=== PATIENT | female | born 1965 | race Caucasian/White ===

== ENCOUNTER 2020-11-23 23:58 | Emergency (ER) | payer MEDICARE, MEDICAID, SELFPAY ==
[2020-11-24 00:13] VITALS: BP 100/45; BP 110/70; PULSE 65; PULSE 70; RESP 15; TEMP 37; O2SAT 100; O2SAT 95; BMI 32.3
[2020-11-24 01:37] VITALS: BP 90/43; PULSE 60; RESP 16; O2SAT 100
--- NOTE | 2020-11-24 02:23 | PC.NURSE ---
POC 291 mg/dl. Pt snoring in bed, arousable to a sternal rub. VSS at this time, awaiting primary MD nova. Continue to monitor.
[2020-11-24 02:25] VITALS: BP 96/54; PULSE 61; RESP 12; O2SAT 99
[2020-11-24 02:29] LABS: Glucose, Whole Blood 291 mg/dL (60-115)
--- NOTE | 2020-11-24 03:12 | ED.OVERDOSE ---
HPI - Overdose General Chief Complaint: Overdose Stated Complaint: od Time Seen by Provider: 11/24/20 02:36 Source: patient Mode of arrival: EMS History of Present Illness HPI Narrative: This is a 55-year-old female who has a history of diabetes and is brought in by EMS after she was found ?sleeping? in a car with heroin on her lap. Patient endorses that she is an insulin-dependent diabetic and EMS notes that her point of care glucose was 463. On further questioning patient denies having taken anything. Otherwise, she denies fevers, chills, nausea, vomiting, diarrhea. Related Data Allergies Allergy/AdvReac Type Severity Reaction Status Date / Time Penicillins Allergy Mild HIVES Unverified 03/22/20 15:05 penicillin V Allergy Unknown Verified 03/09/19 00:00 Review of Systems Review of Systems: Pertinent positives and negatives as stated in the HPI and 10 point review of systems is otherwise negative. PMFSH Past Medical History Source: nursing notes reviewed Social History Social History Advance Directives: No Advance Directives Information Provided: No Patient : No Physical Exam Vital Signs: Vital Signs: Last Vital Signs Temp 98.6 F 11/24/20 00:13 Pulse 68 11/24/20 05:58 Resp 16 11/24/20 05:58 BP 156/73 H 11/24/20 05:58 Pulse Ox 96 11/24/20 05:58 Body Mass Index 32.3 VITAL SIGNS: Reviewed. GENERAL: Well developed, well nourished, in no acute distress. HEAD: Normocephalic/atraumatic EYES: PERRLA, EOMI NOSE: Nares patent bilateral OROPHARYNX: no oral lesions noted, posterior pharynx clear, dry mucosa NECK: Supple, no adenopathy LUNGS: Normal breath sounds. No adventitious sounds or accessory muscle use. SpO2<96> CARDIOVASCULAR: Regular rate and rhythm without noted murmurs ABDOMEN: Obese, Soft, non-tender, non-distended with bowel sounds. NEUROLOGIC: Drowsy and oriented x 3. Course Course Course Narrative: This is a 55-year-old female with history and clinical presentation most consistent with illicit drug use but is noted to have hyperglycemia without evidence of DKA or HHS. There is evidence of PAPO when compared to prior lab work from March of last year. Otherwise, on review of all investigations there is only significant findings of PAPO. Patient received 2 L of IV fluid resuscitation and will repeat BMP. Otherwise, patient may be discharged when more awake with a safe ride home. MDM - Overdose Lab Data Result diagrams: 11/24/20 03:59 11/24/20 03:59 Labs: Lab Results 11/24/20 11/24/20 11/24/20 Range/Units 02:21 03:59 03:59 WBC 9.0 (4.8-10.8) X10*3/uL RBC 3.80 L (4.20-5.50) X10*6/uL Hgb 11.3 L (12.0-16.0) g/dl Hct 36.0 L (37-47) % MCV 94.7 (80-98) fL MCH 29.7 (27.0-33.0) pg MCHC 31.4 (31.0-35.0) g/dl RDW 13.6 (11.0-16.0) % Plt Count 206 (160-400) X10*3/uL MPV 11.7 (9.4-12.3) fL Immature Gran % (Auto) 0.2 (0.0-0.4) % Neut % (Auto) 58.7 (45-73) % Lymph % (Auto) 33.3 (20-40) % [place] % (Auto) 6.6 (2-11) % Eos % (Auto) 0.9 (0-4) % Baso % (Auto) 0.3 (0-2) % Lymph # (Auto) 3.0 (1.2-4.9) X10*3/uL [place] # (Auto) 0.6 (0.1-1.2) X10*3/uL Eos # (Auto) 0.1 (0.0-0.4) X10*3/uL Baso # (Auto) 0.0 (0.0-0.2) X10*3/uL Abs Immat Gran (auto) 0.02 (0.00-0.03) X10*3/uL Absolute Neuts (auto) 5.3 (2.0-8.3) X10*3/uL Absolute Nucleated RBC 0.000 (0.0-0.012) X10*3/uL Nucleated RBC % (auto) 0.0 (0.0-0.2) /100WBC Smear Tech's Comments VERIFIED Sodium 137 (135-145) mmol/L Potassium 4.8 (3.3-5.1) mmol/L Chloride 103 (96-108) mmol/L Carbon Dioxide 23 (22-29) mmol/L Anion Gap 16 (12-20) BUN 46 H (9-16) mg/dL Creatinine 2.48 H (0.5-1.4) mg/dL Estim Creat Clear Calc 22.4 Estimated GFR 20 POC Glucose 291 H (60-115) mg/dL Random Glucose 280 H (60-115) mg/dL Calcium 9.1 (8.4-10.2) mg/dL Total Bilirubin 0.2 (0.0-1.0) mg/dL AST 8 (5-31) U/L ALT 7 (0-31) U/L Alkaline Phosphatase 153 H (39-117) U/L Total Protein 6.8 (6.5-8.0) g/dL Albumin 3.5 (3.5-5.0) g/dL Lipase 14 (8-78) U/L Urine Color Urine Appearance Urine pH (5.0-8.0) Ur Specific [place] (1.005-1.025) Urine Protein (NEG-TRACE) MG/DL Urine Glucose (UA) (NEG) MG/DL Urine Ketones (NEG) MG/DL Urine Blood (NEG) Urine Nitrite (NEG) Ur Leukocyte Esterase (NEG) Urine Opiates Screen (Not Detect) Ur Barbiturates Screen (Not Detect) Ur Phencyclidine Scrn (Not Detect) Ur Amphetamines Screen (Not Detect) U Benzodiazepines Scrn (Not Detect) Urine Cocaine Screen (Not Detect) U Marijuana (THC) Screen (Not Detect) Ethyl Alcohol mg/dL Acetone, Qual Negative (Negative) 11/24/20 11/24/20 11/24/20 Range/Units 03:59 04:10 04:10 WBC (4.8-10.8) X10*3/uL RBC (4.20-5.50) X10*6/uL Hgb (12.0-16.0) g/dl Hct (37-47) % MCV (80-98) fL MCH (27.0-33.0) pg MCHC (31.0-35.0) g/dl RDW (11.0-16.0) % Plt Count (160-400) X10*3/uL MPV (9.4-12.3) fL Immature Gran % (Auto) (0.0-0.4) % Neut % (Auto) (45-73) % Lymph % (Auto) (20-40) % [place] % (Auto) (2-11) % Eos % (Auto) (0-4) % Baso % (Auto) (0-2) % Lymph # (Auto) (1.2-4.9) X10*3/uL [place] # (Auto) (0.1-1.2) X10*3/uL Eos # (Auto) (0.0-0.4) X10*3/uL Baso # (Auto) (0.0-0.2) X10*3/uL Abs Immat Gran (auto) (0.00-0.03) X10*3/uL Absolute Neuts (auto) (2.0-8.3) X10*3/uL Absolute Nucleated RBC (0.0-0.012) X10*3/uL Nucleated RBC % (auto) (0.0-0.2) /100WBC Smear Tech's Comments Sodium (135-145) mmol/L Potassium (3.3-5.1) mmol/L Chloride (96-108) mmol/L Carbon Dioxide (22-29) mmol/L Anion Gap (12-20) BUN (9-16) mg/dL Creatinine (0.5-1.4) mg/dL Estim Creat Clear Calc Estimated GFR POC Glucose (60-115) mg/dL Random Glucose (60-115) mg/dL Calcium (8.4-10.2) mg/dL Total Bilirubin (0.0-1.0) mg/dL AST (5-31) U/L ALT (0-31) U/L Alkaline Phosphatase (39-117) U/L Total Protein (6.5-8.0) g/dL Albumin (3.5-5.0) g/dL Lipase (8-78) U/L Urine Color YELLOW Urine Appearance CLEAR Urine pH 6.0 (5.0-8.0) Ur Specific [place] >= 1.030 H (1.005-1.025) Urine Protein TRACE (NEG-TRACE) MG/DL Urine Glucose (UA) 100 H (NEG) MG/DL Urine Ketones NEG (NEG) MG/DL Urine Blood NEG (NEG) Urine Nitrite NEG (NEG) Ur Leukocyte Esterase NEG (NEG) Urine Opiates Screen POSITIVE H (Not Detect) Ur Barbiturates Screen Not Detected (Not Detect) Ur Phencyclidine Scrn Not Detected (Not Detect) Ur Amphetamines Screen Not Detected (Not Detect) U Benzodiazepines Scrn Not Detected (Not Detect) Urine Cocaine Screen POSITIVE H (Not Detect) U Marijuana (THC) Screen Not Detected (Not Detect) Ethyl Alcohol < 10 mg/dL Acetone, Qual (Negative) Discharge Plan Discharge Clinical Impression: Drug overdose Patient Disposition: Home, Self-Care Instructions: Adult Overdose (ED) Additional Instructions: Resume all home medications as prescribed. Follow-up with your primary care provider for re-evaluation in 2-3 days. Return to the emergency department for any acute worsening of symptoms. Referrals: Physician,Unknown [Primary Care Provider] - 2 days
[2020-11-24] MEDS: 0.9 % Sodium Chloride 2,000 ML 999 ML IV (04:08)
[2020-11-24 04:12] LABS: Basophils Percent Auto 0.3 % (0-2); Eosinophils Absolute Auto 0.1 X10*3/uL (0.0-0.4); Eosinophils Percent Auto 0.9 % (0-4); Hemoglobin 11.3 g/dl (12.0-16.0); Imm Gran Abs Auto 0.02 X10*3/uL (0.00-0.03); Imm Gran Pct Auto 0.2 % (0.0-0.4); Lymphocytes Percent Auto 33.3 % (20-40); MANUAL DIFF FLAG SCAN; Mean Corpuscular HGB Conc 31.4 g/dl (31.0-35.0); Mean Corpuscular Hemoglobin 29.7 pg (27.0-33.0); Mean Corpuscular Volume 94.7 fL (80-98); Mean Platelet Volume 11.7 fL (9.4-12.3); Monocytes Absolute Auto 0.6 X10*3/uL (0.1-1.2); Monocytes Percent Auto 6.6 % (2-11); Neutrophils Absolute Auto 5.3 X10*3/uL (2.0-8.3); Neutrophils Percent Auto 58.7 % (45-73); Platelet Count 206 X10*3/uL (160-400); Red Cell Distribution Width 13.6 % (11.0-16.0); SCAN SMEAR FLAG 1
[2020-11-24 04:25] VITALS: BP 114/57; PULSE 63; RESP 16; O2SAT 94
[2020-11-24 04:25] LABS: Acetone, serum QL Negative (Negative)
[2020-11-24 04:26] LABS: Glucose Urine UA 100 MG/DL (NEG); Leukocyte Esterase Urine NEG (NEG); Nitrite Urine NEG (NEG); Specific Gravity - Urine >= 1.030 (1.005-1.025); Urine Blood NEG (NEG); Urine Ketones NEG (NEG); Urine Protein TRACE MG/DL (NEG-TRACE)
[2020-11-24 04:31] LABS: Ethanol < 10 mg/dL
[2020-11-24 04:32] LABS: SLIDE REVIEW VERIFIED
[2020-11-24 04:34] LABS: Alanine Aminotransferase 7 U/L (0-31); Albumin Level 3.5 g/dL (3.5-5.0); Alkaline Phosphatase 153 U/L (39-117); Anion Gap 16 (12-20); Aspartate Amino Transferase 8 U/L (5-31); Bilirubin Total 0.2 mg/dL (0.0-1.0); Blood Urea Nitrogen 46 mg/dL (9-16); Calcium 9.1 mg/dL (8.4-10.2); Carbon Dioxide 23 mmol/L (22-29); Chloride 103 mmol/L (96-108); Creatinine Clr Calc Pharmacy 22.4; Estimated Glomerular Filt Rate 20; Glucose Random 280 mg/dL (60-115); Lipase 14 U/L (8-78); Potassium 4.8 mmol/L (3.3-5.1); Sodium 137 mmol/L (135-145); Total Protein 6.8 g/dL (6.5-8.0)
[2020-11-24 04:38] LABS: Appearance Urine CLEAR; Color Urine YELLOW
[2020-11-24 05:06] LABS: Amphetamine Screen Urine Not Detected (Not Detect); Barbiturates, Urine Not Detected (Not Detect); Benzodiazepines Screen Urine Not Detected (Not Detect); Cannabinoid Screen Urine Not Detected (Not Detect); Cocaine Screen Urine POSITIVE (Not Detect); Opiate Screen Urine POSITIVE (Not Detect); Phencyclidine Screen Urine Not Detected (Not Detect)
--- NOTE | 2020-11-24 05:53 | PC.NURSE ---
Daughter updated on pt condition. Daughter to be called for transport home.
[2020-11-24 05:58] VITALS: BP 156/73; PULSE 68; RESP 16; O2SAT 96
[2020-11-24] MEDS: 0.9 % Sodium Chloride 1,000 ML 999 ML IV (06:42)
[2020-11-24 08:19] LABS: Anion Gap 14 (12-20); Blood Urea Nitrogen 39 mg/dL (9-16); Calcium 8.6 mg/dL (8.4-10.2); Carbon Dioxide 23 mmol/L (22-29); Chloride 108 mmol/L (96-108); Creatinine Clr Calc Pharmacy 31.6; Estimated Glomerular Filt Rate 30; Glucose Random 187 mg/dL (60-115); Potassium 4.6 mmol/L (3.3-5.1); Sodium 140 mmol/L (135-145)
== END 2020-11-24 11:30 | disposition home or self-care (01) ==
PROVIDERS: Student in an Organized Health Care Education/Training Program; Emergency Provider Emergency Medicine
DX: T40.1X1A Poisoning by heroin, accidental (unintentional), initial encounter (principal); Y92.810 Car as the place of occurrence of the external cause; E11.65 Type 2 diabetes mellitus with hyperglycemia; I10 Essential (primary) hypertension; F11.90 Opioid use, unspecified, uncomplicated
CPT/HCPCS: 36415; 80048; 80053; 80307; 80320; 81003; 82009; 82947; 83690; 85025; 96360; 96361; 99284

== ENCOUNTER 2020-12-03 10:47 | Emergency (ER) | payer MEDICARE, MEDICAID, SELFPAY ==
[2020-12-03] VITALS (8 sets, daily range): BP systolic 94–119; BP diastolic 49–84; PULSE 73–133; RESP 13–30; TEMP 36.1–36.7; O2SAT 87–100; BMI 33.6
--- NOTE | ~2020-12-03 | CT_ITS ---
EXAMINATION: CT HEAD WITHOUT CONTRAST CLINICAL INFORMATION: Altered mental status COMPARISON: 07/24/2017 TECHNIQUE: Contiguous axial imaging was performed from the skull base to vertex without intravenous administration of contrast. This CT examination was performed using dose optimization techniques as appropriate, variously including the following: *Automated exposure control *Adjustment of mA and/or kV according to patient size (this includes techniques or standardized protocols for targeted exams where dose is matched to indication/reason for exam; i.e. extremities or head) *Use of iterative reconstruction technique DLP: 684 mGy-cm FINDINGS: There is no evidence of acute intracranial hemorrhage or territorial infarction. No abnormal mass effect or midline shift is seen. [place] to white matter differentiation is well preserved. No extra-axial fluid collections are identified. The ventricles are normal in size. No areas of abnormal brain parenchymal attenuation. The osseous structures and soft tissues are normal. The mastoid air cells and visualized portions of the paranasal sinuses are well aerated. CT/CT head/brain wo con IMPRESSION: No acute intracranial pathology.
--- NOTE | ~2020-12-03 | XR_ITS ---
EXAMINATION: XR CHEST CLINICAL INFORMATION: Hypoxia COMPARISON: Chest x-ray the 2019 TECHNIQUE: Frontal portable view of the chest was obtained. 4:38 PM FINDINGS: Lung volume low. This accentuates the bronchovascular markings. There is no acute change allowing for low inspiratory effort. There is no significant pulmonary vascular congestion. There is no focal consolidation, no pleural effusion or pneumothorax. The cardiac and mediastinal contours are normal. XR/XR chest 1V IMPRESSION: No acute abnormality of chest.
--- NOTE | 2020-12-03 11:44 | ED_ITS ---
HPI - Overdose General Chief Complaint: Overdose Stated Complaint: overdose Time Seen by Provider: 12/03/20 11:44 History of Present Illness HPI Narrative: 55-year-old female with history of hypertension, diabetes, opiate abuse who presents to the ED after an overdose. Patient is a limited historian given clinical condition however reports from EMS states the patient has at home health provider came to the home and found patient unresponsive and not breathing she administered 2 doses of nasal Narcan and called EMS. On arrival patient was fidgety uncooperative. EMS did not need to give any additional Narcan. Patient at this time denies physical complaints states she is here for an overdose but denies any drug abuse is redirectable but still fairly uncooperative. Related Data Previous Rx's Medication Instructions Recorded naloxone [Narcan] 4 mg INTRANASAL Q2M PRN #2 ea 11/24/20 Allergies Allergy/AdvReac Type Severity Reaction Status Date / Time Penicillins Allergy Mild HIVES Verified 12/03/20 11:11 Review of Systems Review of Systems: Yes Unobtainable due to mental status PMFSH Past Medical History Attestation statement: The following information was validated with the patient. Source: old records reviewed and nursing notes reviewed Medical History (Updated 12/03/20 @ 17:38 by TAINA Zamudio) Diabetes HTN (hypertension) Opiate use Social History Social History Alcohol intake: unknown Patient Tobacco Use Status: Refuse Tobacco use screen Use of substances other than those prescribed or required for medical reasons: Yes Substance Use Type: Crack/Cocaine and Opiates Physical Exam Vital Signs: Vital Signs: Last Vital Signs Temp 98.1 F 12/03/20 16:59 Pulse 88 12/03/20 16:59 Resp 17 12/03/20 16:59 BP 111/72 12/03/20 16:59 Pulse Ox 94 12/03/20 16:59 Body Mass Index 33.6 vital signs have been reviewed as normal and appeared to be correct. Blood pressure normal. Heart rate normal. Respiration rate normal. Temperature normal. Oxygen saturation normal. Appearance: Alert. Oriented to person and place. tossing and turning in bed. Head: Normal external exam. Normocephalic. Atraumatic. No Can signs noted. No raccoon eyes noted Eyes: Conjunctiva and sclera normal. ENT: EAC normal. Moist mucous membranes. No drooling noted. No muffled voice noted. Neck: Normal inspection. Neck supple. FROM. No meningeal signs. CVS: Pulses normal throughout. Regular rate and rhythm Respiratory: Lung sounds are clear No respiratory distress. Painless inspiration. No accessory muscle usage noted Abdomen: No visible injury noted. Abdomen soft nondistended nontender Back: Full range of motion noted. Skin: Skin warm and dry. Normal skin color. Normal skin turgor. Extremities: No lower extremity edema. Extremities exhibit normal range of motion. Neuro: Oriented to person and place. No motor deficit. No sensory deficit. Patient clinically and under the influence/altered Course Reevaluation(s) Reevaluation #1: Patient continues to be intermittently restless has not returned to baseline. Was called over by nursing staff due to patient's decreased responsiveness patient with slightly smaller pupil was then on arrival responsive to painful stimuli and appropriately arouses. Oxygen saturation with desat to high 80s on room air placed on 2 L with improvement. At this time given prolonged altered mental status will obtain head CT to ensure the absence of abnormal findings. Spoke in length with Dr. Liu who agrees with this plan. Will hold off on additional Narcan at this time but monitor mental status closely. Reevaluation #2: Patient continues to rest comfortably a arousable to any physical stimuli. 94% on 2 L of nasal cannula chest x-ray and CT scan which were added without acute findings. Patient does require continued observation will continue to hold off on Narcan. We will sign out at change of shift pending continued observation and ultimate disposition. MDM - Overdose MDM Narrative Medical decision making narrative: Patient's vital signs are stable and she is afebrile patient presenting to the ED after an overdose at home found by at home health caregiver. Received 2 in transit doses of Narcan with good response at this time patient is a very limited historian due to continued acute intoxication/ulceration however able to tell me she has no physical complaints. No signs of injury or trauma on bedside exam. Patient testing and turning in bed attempting to get up it is fidgety. Will continue to monitor closely for improvement of exam will check basic blood work and EKG. Will need to further observe and reassess pending sobriety patient hemodynamically stable at this time. Lab Data Result diagrams: 12/03/20 12:20 12/03/20 12:59 Labs: Lab Results 12/03/20 12/03/20 12/03/20 Range/Units 12:20 12:20 12:59 WBC 15.5 H (4.8-10.8) X10*3/uL RBC 5.02 D (4.20-5.50) X10*6/uL Hgb 14.9 D (12.0-16.0) g/dl Hct 45.4 D (37-47) % MCV 90.4 (80-98) fL MCH 29.7 (27.0-33.0) pg MCHC 32.8 (31.0-35.0) g/dl RDW 13.3 (11.0-16.0) % Plt Count 331 D (160-400) X10*3/uL MPV 11.5 (9.4-12.3) fL Immature Gran % (Auto) 0.5 H (0.0-0.4) % Neut % (Auto) 79.1 H (45-73) % Lymph % (Auto) 13.8 L (20-40) % [place] % (Auto) 5.8 (2-11) % Eos % (Auto) 0.3 (0-4) % Baso % (Auto) 0.5 (0-2) % Lymph # (Auto) 2.1 (1.2-4.9) X10*3/uL [place] # (Auto) 0.9 (0.1-1.2) X10*3/uL Eos # (Auto) 0.1 (0.0-0.4) X10*3/uL Baso # (Auto) 0.1 (0.0-0.2) X10*3/uL Abs Immat Gran (auto) 0.07 H (0.00-0.03) X10*3/uL Absolute Neuts (auto) 12.2 H (2.0-8.3) X10*3/uL Absolute Nucleated RBC 0.000 (0.0-0.012) X10*3/uL Nucleated RBC % (auto) 0.0 (0.0-0.2) /100WBC Sodium 138 (135-145) mmol/L Potassium 4.5 (3.3-5.1) mmol/L Chloride 100 (96-108) mmol/L Carbon Dioxide 18 L (22-29) mmol/L Anion Gap 25 H (12-20) BUN 43 H (9-16) mg/dL Creatinine 1.89 H (0.5-1.4) mg/dL Estim Creat Clear Calc 35.4 Estimated GFR 28 POC Glucose (60-115) mg/dL Random Glucose 266 H D (60-115) mg/dL Calcium 11.0 H D (8.4-10.2) mg/dL Total Bilirubin 0.4 (0.0-1.0) mg/dL AST 22 D (5-31) U/L ALT 14 (0-31) U/L Alkaline Phosphatase 153 H (39-117) U/L Total Protein 8.7 H D (6.5-8.0) g/dL Albumin 4.5 D (3.5-5.0) g/dL Urine Opiates Screen (Not Detect) Ur Barbiturates Screen (Not Detect) Ur Phencyclidine Scrn (Not Detect) Ur Amphetamines Screen (Not Detect) U Benzodiazepines Scrn (Not Detect) Urine Cocaine Screen (Not Detect) U Marijuana (THC) Screen (Not Detect) Ethyl Alcohol mg/dL COVID-19 ([facility]) Negative (Negative) COVID-19 Clin Com See Note 12/03/20 12/03/20 12/03/20 Range/Units 12:59 14:42 16:10 WBC (4.8-10.8) X10*3/uL RBC (4.20-5.50) X10*6/uL Hgb (12.0-16.0) g/dl Hct (37-47) % MCV (80-98) fL MCH (27.0-33.0) pg MCHC (31.0-35.0) g/dl RDW (11.0-16.0) % Plt Count (160-400) X10*3/uL MPV (9.4-12.3) fL Immature Gran % (Auto) (0.0-0.4) % Neut % (Auto) (45-73) % Lymph % (Auto) (20-40) % [place] % (Auto) (2-11) % Eos % (Auto) (0-4) % Baso % (Auto) (0-2) % Lymph # (Auto) (1.2-4.9) X10*3/uL [place] # (Auto) (0.1-1.2) X10*3/uL Eos # (Auto) (0.0-0.4) X10*3/uL Baso # (Auto) (0.0-0.2) X10*3/uL Abs Immat Gran (auto) (0.00-0.03) X10*3/uL Absolute Neuts (auto) (2.0-8.3) X10*3/uL Absolute Nucleated RBC (0.0-0.012) X10*3/uL Nucleated RBC % (auto) (0.0-0.2) /100WBC Sodium (135-145) mmol/L Potassium (3.3-5.1) mmol/L Chloride (96-108) mmol/L Carbon Dioxide (22-29) mmol/L Anion Gap (12-20) BUN (9-16) mg/dL Creatinine (0.5-1.4) mg/dL Estim Creat Clear Calc Estimated GFR POC Glucose 205 H (60-115) mg/dL Random Glucose (60-115) mg/dL Calcium (8.4-10.2) mg/dL Total Bilirubin (0.0-1.0) mg/dL AST (5-31) U/L ALT (0-31) U/L Alkaline Phosphatase (39-117) U/L Total Protein (6.5-8.0) g/dL Albumin (3.5-5.0) g/dL Urine Opiates Screen POSITIVE H (Not Detect) Ur Barbiturates Screen Not Detected (Not Detect) Ur Phencyclidine Scrn Not Detected (Not Detect) Ur Amphetamines Screen Not Detected (Not Detect) U Benzodiazepines Scrn Not Detected (Not Detect) Urine Cocaine Screen POSITIVE H (Not Detect) U Marijuana (THC) Screen Not Detected (Not Detect) Ethyl Alcohol < 10 mg/dL COVID-19 ([facility]) (Negative) COVID-19 Clin Com Discharge Plan Discharge Clinical Impression: Drug overdose Qualifiers: Encounter type: initial encounter Prescriptions: No Action Narcan 4 mg/actuation spray,non-aerosol 4 mg intranasal Q2M PRN (Reason: opioid overdose) Qty: 2 RF: 0
--- NOTE | 2020-12-03 11:47 | ECG_ITS ---
Test Reason : AMS Blood Pressure : / mmHG Vent. Rate : 091 BPM Atrial Rate : 091 BPM P-R Int : 126 ms QRS Dur : 070 ms QT Int : 370 ms P-R-T Axes : 042 049 039 degrees QTc Int : 455 ms Normal sinus rhythm Normal ECG When compared with ECG of 11-DEC-2019 19:24, No significant change was found Referred By: Galina Bajwa Electronically Signed By:YAMILETH SCHMITT
[2020-12-03 12:26] LABS: MANUAL DIFF FLAG NO
[2020-12-03 12:27] LABS: Basophils Absolute Auto 0.1 X10*3/uL (0.0-0.2); Basophils Percent Auto 0.5 % (0-2); Eosinophils Absolute Auto 0.1 X10*3/uL (0.0-0.4); Eosinophils Percent Auto 0.3 % (0-4); Hematocrit 45.4 % (37-47); Hemoglobin 14.9 g/dl (12.0-16.0); Imm Gran Abs Auto 0.07 X10*3/uL (0.00-0.03); Imm Gran Pct Auto 0.5 % (0.0-0.4); Lymphocytes Absolute Auto 2.1 X10*3/uL (1.2-4.9); Lymphocytes Percent Auto 13.8 % (20-40); Mean Corpuscular HGB Conc 32.8 g/dl (31.0-35.0); Mean Corpuscular Hemoglobin 29.7 pg (27.0-33.0); Mean Corpuscular Volume 90.4 fL (80-98); Mean Platelet Volume 11.5 fL (9.4-12.3); Monocytes Absolute Auto 0.9 X10*3/uL (0.1-1.2); Monocytes Percent Auto 5.8 % (2-11); Neutrophils Absolute Auto 12.2 X10*3/uL (2.0-8.3); Neutrophils Percent Auto 79.1 % (45-73); Platelet Count 331 X10*3/uL (160-400); Red Blood Count 5.02 X10*6/uL (4.20-5.50); Red Cell Distribution Width 13.3 % (11.0-16.0); White Blood Count 15.5 X10*3/uL (4.8-10.8)
[2020-12-03 12:41] LABS: COVID-19 Test Negative (Negative)
--- NOTE | 2020-12-03 12:57 | PC.NURSE ---
late entry. aprox 1230 pt sat up and vomited large amount of billious emisis. iv was placed and provider aware. pt continues to wiggle and ekg held ST on monitor.
[2020-12-03] MEDS: ondansetron HCL 4 MG/2 ML VIAL IVPUSH (13:00)
[2020-12-03 13:32] LABS: Ethanol < 10 mg/dL
[2020-12-03 13:49] LABS: Alanine Aminotransferase 14 U/L (0-31); Albumin Level 4.5 g/dL (3.5-5.0); Alkaline Phosphatase 153 U/L (39-117); Anion Gap 25 (12-20); Aspartate Amino Transferase 22 U/L (5-31); Bilirubin Total 0.4 mg/dL (0.0-1.0); Blood Urea Nitrogen 43 mg/dL (9-16); Carbon Dioxide 18 mmol/L (22-29); Chloride 100 mmol/L (96-108); Creatinine Clr Calc Pharmacy 35.4; Estimated Glomerular Filt Rate 28; Glucose Random 266 mg/dL (60-115); Potassium 4.5 mmol/L (3.3-5.1); Sodium 138 mmol/L (135-145); Total Protein 8.7 g/dL (6.5-8.0)
[2020-12-03] MEDS: 0.9 % Sodium Chloride 1,000 ML 999 ML IV ×2 (14:40→15:52)
--- NOTE | 2020-12-03 14:45 | PC.NURSE ---
speaking with daughter on phone. pt lives alone. daughter states she can't come home untill she's alert. pt does have [facility]NA services. [facility] helps her remember to take pills. and check POC.
[2020-12-03 15:10] LABS: Amphetamine Screen Urine Not Detected (Not Detect); Barbiturates, Urine Not Detected (Not Detect); Benzodiazepines Screen Urine Not Detected (Not Detect); Cannabinoid Screen Urine Not Detected (Not Detect); Cocaine Screen Urine POSITIVE (Not Detect); Opiate Screen Urine POSITIVE (Not Detect); Phencyclidine Screen Urine Not Detected (Not Detect)
--- NOTE | 2020-12-03 16:09 | PC.NURSE ---
after hours of nonstop movemt pt is still, arousable to light touch and far less active. skin pwd. st on monitor is dropped by about 20 since last check. fluids are running.
[2020-12-03 16:14] LABS: Glucose, Whole Blood 205 mg/dL (60-115)
--- NOTE | 2020-12-03 16:21 | PC.NURSE ---
pupils 3mm, non reactive. resp rate is 16-18. co2 applied
--- NOTE | 2020-12-03 17:00 | PC.NURSE ---
While this RN in triage she could hear some discussion at registration between staff and a visitor. This RN found a gentleman by the name of Shaggy who reports he is currently renting a room from the pt and was looking to get some additional information and let her know that he has her house and car keys as well as her cell phone. Visitor could not provide the RN with the pt's last name initially and had to go out to the car to retrieve this information off the member's car title. Shaggy came back into the ED and provided this RN with patient's full name. Per Shaggy, pt was seen hanging curtains when he came home and then he proceeded to go downstairs to his room. He states he went to answer the door as the pt did not answer it herself; pt was found resting in her recliner as Shaggy reports he thought she was asleep. VNA nurse let into the home and pt found to be unresponsive to verbal stimuli with pulse and respirations present. Shaggy states that the [facility]NA nurse gave narcan x2 without improvement; denies any known ETOH/Drug use. Shaggy did admit that the patient has been falling more as he adds the pt reported falling a bunch of times yesterday. Shaggy is willing to provide the patient with a necessary ride when needed as he is currently has the pt's car. Shaggy kept the pt's house keys, car keys and cell phone. Pt's RN made aware
--- NOTE | 2020-12-03 23:38 | PC.NURSE ---
increasingly alert. up to commode with increased coordination but still requires assistance. when back in bed sao2 remains low. see vs. provider aware. 2l NC reapplied
[2020-12-04] VITALS: RESP 16
--- NOTE | 2020-12-04 00:07 | PC.NURSE ---
pt difficult to arouse. pt unable to participate in ambulation trial due to sleepiness.
--- NOTE | 2020-12-04 01:05 | PC.NURSE ---
attempted ambulation trial. patient is now a and o x 3. pt denies si/hi/ah/vh. pt maintained o2 stat while standing. she is 1 assist.
--- NOTE | 2020-12-04 01:45 | PC.NURSE ---
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
[2020-12-04] MEDS: Naloxone HCl Nasal TAKE HOME 4 MG SPRAY NOSTRILALT (03:10)
--- NOTE | 2020-12-04 03:10 | PC.NURSE ---
Report taken from Kim, this RN resuming care. Per Kim, plan for pt to be picked up @ 0845 by family. Pt sleeping at this time in NAD. Continue to monitor.
[2020-12-04 04:34] VITALS: BP 161/73; PULSE 74; RESP 16; O2SAT 92
--- NOTE | 2020-12-04 06:18 | PC.NURSE ---
This RN UTO pt a ride home. Per family, they can't come pick her up. Per pt, she cannot pay for a cab. Pt ambulating within the halls with a steady gait, requiring minimal assist. 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
== END 2020-12-04 07:44 | disposition home or self-care (01) ==
PROVIDERS: Physician Assistant; Emergency Provider Emergency Medicine Emergency Medical Services
DX: T40.1X1A Poisoning by heroin, accidental (unintentional), initial encounter (principal); R40.4 Transient alteration of awareness; Y92.019 Unspecified place in single-family (private) house as the place of occurrence of the external cause; R45.1 Restlessness and agitation; R11.10 Vomiting, unspecified; F11.10 Opioid abuse, uncomplicated; Z20.822 Contact with and (suspected) exposure to COVID-19; E11.9 Type 2 diabetes mellitus without complications; I10 Essential (primary) hypertension
CPT/HCPCS: 36415; 70450; 71045; 80053; 80307; 82077; 82947; 85025; 87635; 93005; 96361; 96374; 99285; J2405

== ENCOUNTER 2022-01-03 14:35 | Outpatient (REF) | payer MEDICARE, MEDICAID, SELFPAY ==
--- NOTE | ~2022-01-03 | XR_ITS ---
EXAMINATION: XR RIBS, LEFT CLINICAL INFORMATION: Pain COMPARISON: Previous chest x-ray November 2020 TECHNIQUE: 3 views of the left ribs were obtained. FINDINGS: The cardiac and mediastinal contours are stable. The lungs are clear. There is no pleural effusion or pneumothorax. Left posterior fifth, sixth and eighth recent appearing rib fractures. Left anterior 11th fracture that does not appear recent. There are degenerative changes of the spine.. XR/XR ribs LT min 3V w CXR1V IMPRESSION: Multiple recent appearing left posterior rib fractures. No evidence for acute disease in the chest.
--- NOTE | ~2022-01-03 | XR_ITS ---
EXAMINATION: XR ABDOMEN KUB CLINICAL INDICATION: Abdominal pain, distention. COMPARISON: Chest radiograph 12/03/2020, CT abdomen and pelvis 04/02/2020. TECHNIQUE: AP x2 views of the abdomen. FINDINGS: There is moderate stool throughout the colon with lesser stool in the sigmoid. No rectal fecal impaction. No gaseous dilatation of bowel or abnormal collections of gas. Surgical clips right upper quadrant from prior cholecystectomy. No visible urinary tract calculi. No acute bony abnormality. XR/XR KUB IMPRESSION: -Moderate stool in colon. No rectal fecal impaction. -No gaseous dilatation of bowel. -No visible urinary tract calculi.
== END 2022-01-03 14:36 | disposition home or self-care (01) ==
LOC: HO.XRAY 14:35
PROVIDERS: PCP Internal Medicine; Visit Provider Internal Medicine
DX: R07.81 Pleurodynia (principal); R10.9 Unspecified abdominal pain; R14.0 Abdominal distension (gaseous)
CPT/HCPCS: 71101; 74018

== ENCOUNTER 2022-03-07 19:53 | Emergency (ER) | payer MEDICARE, MEDICAID, SELFPAY ==
--- NOTE | ~2022-03-07 | CT_ITS ---
EXAMINATION: CT HEAD WITHOUT CONTRAST CLINICAL INFORMATION: Fall one week ago COMPARISON: 12/03/2020 TECHNIQUE: Contiguous axial imaging was performed from the skull base to vertex without intravenous administration of contrast. This CT examination was performed using dose optimization techniques as appropriate, variously including the following: *Automated exposure control *Adjustment of mA and/or kV according to patient size (this includes techniques or standardized protocols for targeted exams where dose is matched to indication/reason for exam; i.e. extremities or head) *Use of iterative reconstruction technique DLP: 711 mGy-cm FINDINGS: There is no evidence of acute intracranial hemorrhage or territorial infarction. No abnormal mass effect or midline shift is seen. [place] to white matter differentiation is well preserved. No extra-axial fluid collections are identified. No hydrocephalus. No significant volume loss. There is no abnormal attenuation within the brain parenchyma. No acute osseous or soft tissue abnormality. The mastoid air cells and visualized portions of the paranasal sinuses are well aerated. CT/CT head/brain wo IV con IMPRESSION: No acute intracranial pathology.
[2022-03-07 19:59] VITALS: BP 138/78; PULSE 78; PULSE 97; RESP 18; O2SAT 100; O2SAT 99; BMI 20.2
[2022-03-07 20:15] VITALS: BP 136/80; PULSE 97; RESP 18; O2SAT 99
--- NOTE | 2022-03-07 20:21 | PC.NURSE ---
Pt comes in with EMS after falling at home. Pt has a laceration on the top of the right side of her head. Pt states the wound is approximately a week old. Pt initially denied any drug use but did eventually admit to heroin use vtoday, 2 bags. Pt is A&O but very sleepy and has to be asked questions multiple times before answering.
[2022-03-07 20:37] LABS: Basophils Percent Auto 0.4 % (0-2); Eosinophils Absolute Auto 0.2 X10*3/uL (0.0-0.4); Eosinophils Percent Auto 2.8 % (0-4); Hemoglobin 12.3 g/dl (12.0-16.0); Imm Gran Abs Auto 0.03 X10*3/uL (0.00-0.03); Imm Gran Pct Auto 0.4 % (0.0-0.4); Lymphocytes Absolute Auto 1.4 X10*3/uL (1.2-4.9); Lymphocytes Percent Auto 17.7 % (20-40); MANUAL DIFF FLAG SCAN; Mean Corpuscular HGB Conc 32.4 g/dl (31.0-35.0); Mean Corpuscular Hemoglobin 29.4 pg (27.0-33.0); Mean Corpuscular Volume 90.7 fL (80.0-98.0); Mean Platelet Volume 10.7 fL (9.4-12.3); Monocytes Absolute Auto 0.7 X10*3/uL (0.1-1.2); Monocytes Percent Auto 8.5 % (2-11); Neutrophils Absolute Auto 5.5 x10*3/uL (2.0-8.3); Neutrophils Percent Auto 70.2 % (45-73); Platelet Count 268 X10*3/uL (160-400); Red Blood Count 4.19 X10*6/uL (4.20-5.50); Red Cell Distribution Width 13.6 % (11.0-16.0); SCAN SMEAR FLAG 1; White Blood Count 7.8 X10*3/uL (4.8-10.8)
[2022-03-07 20:38] LABS: Appearance Urine Clear; Color Urine Yellow; Glucose Urine UA Negative (Negative); Leukocyte Esterase Urine Negative (Negative); Nitrite Urine Negative (Negative); PH 5.5 (5.0-9.0); Specific Gravity - Urine 1.015 (1.005-1.025); Urine Blood Trace (Negative); Urine Ketones Trace mg/dL (Negative); Urine Protein 100 (2+) mg/dL (Neg-Trace)
[2022-03-07 20:40] LABS: UPreg QC Valid YES; Urine Pregnancy NEGATIVE (NEGATIVE)
[2022-03-07 20:43] LABS: Bacteria Urine None Seen (None Seen); RBC Urine 0-2 /HPF (0-2); WBC Urine 0-5 /HPF (0-5)
[2022-03-07 20:57] LABS: Anion Gap 21 (12-20); Blood Urea Nitrogen 51 mg/dL (9-16); Calcium 8.6 mg/dL (8.4-10.2); Carbon Dioxide 23 mmol/L (22-29); Chloride 96 mmol/L (96-108); Creatinine Clr Calc Pharmacy 15.2; Estimated Glomerular Filt Rate 17; Glucose Random 153 mg/dL (60-115); Potassium 3.8 mmol/L (3.3-5.1); SLIDE REVIEW VERIFIED; Sodium 136 mmol/L (135-145)
[2022-03-07 20:57] LABS: Amphetamine Screen Urine Not Detected (Not Detect); Barbiturates, Urine Not Detected (Not Detect); Benzodiazepines Screen Urine POSITIVE (Not Detect); Cannabinoid Screen Urine Not Detected (Not Detect); Cocaine Screen Urine POSITIVE (Not Detect); Fentanyl, urine POSITIVE (Not Detect); Opiate Screen Urine POSITIVE (Not Detect); Phencyclidine Screen Urine Not Detected (Not Detect)
[2022-03-07] MEDS: Ondansetron ODT 4 MG TAB.RAPDIS TRANSLINGU (21:16)
[2022-03-07] MEDS: Naloxone HCl Nasal 4 MG SPRAY NOSTRILALT (21:16)
[2022-03-07 21:44] LABS: Ethanol < 10 mg/dL
[2022-03-07] MEDS: diphenhydrAMINE HCL 50 MG/ML VIAL IM (22:25)
--- NOTE | 2022-03-07 22:27 | ED_ITS ---
HPI - Fall General Chief Complaint: Fall Stated Complaint: fall/lac for a week Time Seen by Provider: 03/07/22 20:59 Source: EMS Mode of arrival: EMS History of Present Illness HPI Narrative: 56-year-old female brought in by EMS and is a poor historian, majority of this history is obtained from EMS. Patient is noted to be falling at home over the past week patient is been shaky and unable to sit still. Patient has a wound on the right side of her head from a fall a week ago that has scabbed over and is oozing. Patient is on methadone, but reports that she did use heroin, 2 bags today. Patient appears agitated and and initially was yelling ?no Narcan, do not give me Narcan?. Related Data Previous Rx's Medication Instructions Recorded naloxone 4 mg/actuation nasal 4 mg intranasal Q2M PRN opioid 11/24/20 spray (Narcan) overdose #2 ea Allergies Allergy/AdvReac Type Severity Reaction Status Date / Time Penicillins Allergy Mild HIVES Verified 12/03/20 11:11 Review of Systems Review of Systems: Pertinent positives and negatives as stated in HPI 10 point review of systems is otherwise negative PMFSH Past Medical History Source: nursing notes reviewed Medical History Diabetes HTN (hypertension) Opiate use Social History Social History Alcohol intake: never Patient Tobacco Use Status: Current everyday Tobacco user Use of substances other than those prescribed or required for medical reasons: Yes Substance Use Type: Heroin Substance Use Frequency: Occasionally Advance Directives: No Advance Directives Information Provided: No Patient : No Physical Exam Vital Signs: Vital Signs: Last Vital Signs Temp 98.4 F 03/08/22 01:55 Pulse 72 03/08/22 01:55 Resp 16 03/08/22 01:55 BP 90/53 L 03/08/22 01:55 Pulse Ox 94 03/08/22 01:55 O2 Del Method 03/08/22 01:55 BMI result Body Mass Index 20.2 VITAL SIGNS: Reviewed. GENERAL: Well developed, well nourished, in no acute distress. HEAD: Normocephalic/atraumatic EYES: PERRLA, EOMI EARS: Ext canals without abnormality OROPHARYNX: no oral lesions noted, posterior pharynx clear LUNGS: Normal breath sounds. No adventitious sounds or accessory muscle use. SpO2<99> CARDIOVASCULAR: Regular rate and rhythm without noted murmurs ABDOMEN: Soft, non-tender, non-distended with bowel sounds. MUSCULOSKELETAL: No tenderness, deformities, or effusions noted on gross inspection. EXTREMITIES: No cyanosis, clubbing or edema. SKIN: Inspection of the skin reveals no rashes NEUROLOGIC: Alert and oriented x 3. Strength and sensation to light touch were grossly intact x 4. Course Course Course Narrative: 56-year-old female who is brought in from home by EMS, is a poor historian but appears to be polysubstance use dependence and although initially she was yelling that she did not want Narcan she then became very somnolent and drowsy and the decision was made to give her 4 mg of Narcan intranasally as well as a sublingual Zofran. Patient woke up and began pacing room. Patient was provided with both Benadryl as well as Ativan for the level of agitation that she was experiencing. Review all investigations was otherwise negative for acute findings to include the CT scan. Patient is resting comfortably and will be ready for discharge in the morning. Reevaluation(s) Reevaluation #1: Patient placed in physician observation because the patient needed more time for recover from medications. At the time observation was started the patient's vital signs were stable, patient is alert, neuro: Nonfocal, CV RRR, lungs clear Time: 02:43 - Fall Lab Data Result diagrams: 03/07/22 20:28 03/07/22 20:28 Labs: Lab Results 03/07/22 03/07/22 03/07/22 Range/Units 20:28 20:28 20:29 WBC 7.8 (4.8-10.8) X10*3/uL RBC 4.19 L (4.20-5.50) X10*6/uL Hgb 12.3 (12.0-16.0) g/dl Hct 38.0 (37.0-47.0) % MCV 90.7 (80.0-98.0) fL MCH 29.4 (27.0-33.0) pg MCHC 32.4 (31.0-35.0) g/dl RDW 13.6 (11.0-16.0) % Plt Count 268 (160-400) X10*3/uL MPV 10.7 (9.4-12.3) fL Immature Gran % (Auto) 0.4 (0.0-0.4) % Neut % (Auto) 70.2 (45-73) % Lymph % (Auto) 17.7 L (20-40) % [place] % (Auto) 8.5 (2-11) % Eos % (Auto) 2.8 (0-4) % Baso % (Auto) 0.4 (0-2) % Lymph # (Auto) 1.4 (1.2-4.9) X10*3/uL [place] # (Auto) 0.7 (0.1-1.2) X10*3/uL Eos # (Auto) 0.2 (0.0-0.4) X10*3/uL Baso # (Auto) 0.0 (0.0-0.2) X10*3/uL Abs Immat Gran (auto) 0.03 (0.00-0.03) X10*3/uL Absolute Neuts (auto) 5.5 (2.0-8.3) x10*3/uL Absolute Nucleated RBC 0.000 (0.0-0.012) X10*3/uL Nucleated RBC % (auto) 0.0 (0.0-0.2) /100WBC Smear Tech's Comments VERIFIED Sodium 136 (135-145) mmol/L Potassium 3.8 (3.3-5.1) mmol/L Chloride 96 (96-108) mmol/L Carbon Dioxide 23 (22-29) mmol/L Anion Gap 21 H (12-20) BUN 51 H (9-16) mg/dL Creatinine 2.84 H (0.5-1.4) mg/dL Estim Creat Clear Calc 15.2 Estimated GFR 17 Random Glucose 153 H (60-115) mg/dL Calcium 8.6 D (8.4-10.2) mg/dL Total Creatine Kinase 711 H (26-140) U/L Urine Color Yellow Urine Appearance Clear Urine pH 5.5 (5.0-9.0) Ur Specific [place] 1.015 (1.005-1.025) Urine Protein 100 (2+) H (Neg-Trace) mg/dL Urine Glucose (UA) Negative (Negative) mg/dL Urine Ketones Trace (Negative) mg/dL Urine Blood Trace H (Negative) Urine Nitrite Negative (Negative) Ur Leukocyte Esterase Negative (Negative) Urine RBC 0-2 (0-2) /HPF Urine WBC 0-5 (0-5) /HPF Ur Squamous Epith Cells 3-5 (0-2) /HPF Urine Bacteria None Seen (None Seen) Hyaline Casts 3-5 (0-2) /LPF Urine Test (NEGATIVE) Urine Opiates Screen (Not Detect) Urine Fentanyl Screen (Not Detect) Ur Barbiturates Screen (Not Detect) Ur Phencyclidine Scrn (Not Detect) Ur Amphetamines Screen (Not Detect) U Benzodiazepines Scrn (Not Detect) Urine Cocaine Screen (Not Detect) U Marijuana (THC) Screen (Not Detect) Ethyl Alcohol < 10 mg/dL 03/07/22 03/07/22 Range/Units 20:29 20:30 WBC (4.8-10.8) X10*3/uL RBC (4.20-5.50) X10*6/uL Hgb (12.0-16.0) g/dl Hct (37.0-47.0) % MCV (80.0-98.0) fL MCH (27.0-33.0) pg MCHC (31.0-35.0) g/dl RDW (11.0-16.0) % Plt Count (160-400) X10*3/uL MPV (9.4-12.3) fL Immature Gran % (Auto) (0.0-0.4) % Neut % (Auto) (45-73) % Lymph % (Auto) (20-40) % [place] % (Auto) (2-11) % Eos % (Auto) (0-4) % Baso % (Auto) (0-2) % Lymph # (Auto) (1.2-4.9) X10*3/uL [place] # (Auto) (0.1-1.2) X10*3/uL Eos # (Auto) (0.0-0.4) X10*3/uL Baso # (Auto) (0.0-0.2) X10*3/uL Abs Immat Gran (auto) (0.00-0.03) X10*3/uL Absolute Neuts (auto) (2.0-8.3) x10*3/uL Absolute Nucleated RBC (0.0-0.012) X10*3/uL Nucleated RBC % (auto) (0.0-0.2) /100WBC Smear Tech's Comments Sodium (135-145) mmol/L Potassium (3.3-5.1) mmol/L Chloride (96-108) mmol/L Carbon Dioxide (22-29) mmol/L Anion Gap (12-20) BUN (9-16) mg/dL Creatinine (0.5-1.4) mg/dL Estim Creat Clear Calc Estimated GFR Random Glucose (60-115) mg/dL Calcium (8.4-10.2) mg/dL Total Creatine Kinase (26-140) U/L Urine Color Urine Appearance Urine pH (5.0-9.0) Ur Specific [place] (1.005-1.025) Urine Protein (Neg-Trace) mg/dL Urine Glucose (UA) (Negative) mg/dL Urine Ketones (Negative) mg/dL Urine Blood (Negative) Urine Nitrite (Negative) Ur Leukocyte Esterase (Negative) Urine RBC (0-2) /HPF Urine WBC (0-5) /HPF Ur Squamous Epith Cells (0-2) /HPF Urine Bacteria (None Seen) Hyaline Casts (0-2) /LPF Urine Test NEGATIVE (NEGATIVE) Urine Opiates Screen POSITIVE H (Not Detect) Urine Fentanyl Screen POSITIVE H (Not Detect) Ur Barbiturates Screen Not Detected (Not Detect) Ur Phencyclidine Scrn Not Detected (Not Detect) Ur Amphetamines Screen Not Detected (Not Detect) U Benzodiazepines Scrn POSITIVE H (Not Detect) Urine Cocaine Screen POSITIVE H (Not Detect) U Marijuana (THC) Screen Not Detected (Not Detect) Ethyl Alcohol mg/dL Discharge Plan Discharge Clinical Impression: Polysubstance use disorder, Agitation Patient Disposition: Still a Patient Prescriptions: No Action Narcan 4 mg/actuation spray,non-aerosol 4 mg intranasal Q2M PRN (Reason: opioid overdose) Qty: 2 0RF Rx Instructions: spray 1 dose into ONE nostril; alternate nostrils w each dose until help arrives
[2022-03-07] MEDS: cloNIDine HCL 0.1 MG TABLET PO (22:32)
[2022-03-07] MEDS: LORazepam 1 MG TABLET PO (23:10)
--- NOTE | 2022-03-07 23:18 | PC.NURSE ---
medicated per sep and notified Joselyn Eckert and Leisa
--- NOTE | 2022-03-07 23:48 | PC.NURSE ---
pt feeling restless, not staying in her room. pt has restless legs. pt states she is made at herself for doing drugs. pt has been instructed multiple time to stay in her room and bed. waiting rad.
[2022-03-08 00:16] VITALS: BP 138/70; PULSE 91; RESP 20; TEMP 36.9; O2SAT 96
--- NOTE | 2022-03-08 00:46 | PC.NURSE ---
pt has periods of restless legs getts oob to walk around unsteady gait, pt walking around with her eyes closed.
[2022-03-08 01:55] VITALS: BP 90/53; PULSE 72; RESP 16; TEMP 36.9; O2SAT 94
--- NOTE | 2022-03-08 01:55 | PC.NURSE ---
pt slept thur ct with no distress. pt is back in her room sleeping. hob elevated.
[2022-03-08 03:57] VITALS: BP 92/48; PULSE 68; RESP 20; O2SAT 96
[2022-03-08 05:19] VITALS: BP 91/42; PULSE 86; RESP 12; O2SAT 96
[2022-03-08] MEDS: Ondansetron ODT 4 MG TAB.RAPDIS TRANSLINGU (06:47)
== END 2022-03-08 07:22 | disposition home or self-care (01) ==
PROVIDERS: Student in an Organized Health Care Education/Training Program; Emergency Provider Emergency Medicine Emergency Medical Services
DX: F14.19 Cocaine abuse with unspecified cocaine-induced disorder (principal); F11.19 Opioid abuse with unspecified opioid-induced disorder; R42 Dizziness and giddiness; Z79.899 Other long term (current) drug therapy; F17.200 Nicotine dependence, unspecified, uncomplicated; Z71.6 Tobacco abuse counseling
CPT/HCPCS: 36415; 70450; 80048; 80307; 81001; 81025; 82077; 82550; 85025; 96372; 99284; J1200

== ENCOUNTER 2022-04-19 11:23 | Inpatient (IN) | payer MEDICARE, MEDICAID, SELFPAY ==
[2022-04-19] VITALS (17 sets, daily range): BP systolic 91–216; BP diastolic 52–111; PULSE 73–118; RESP 11–24; TEMP 28–37.4; O2SAT 21–100; BMI 29.2; BMI 24.6
--- NOTE | ~2022-04-19 | MR_ITS ---
EXAMINATION: MR BRAIN WITHOUT AND WITH CONTRAST CLINICAL INFORMATION: Persistent encephalopathy. COMPARISON: Head CT dated 04/19/2022. TECHNIQUE: Multiplanar, multisequence imaging of the brain was performed before and after the intravenous administration of 7.5 mL of Gadavist. FINDINGS: A very small subdural collection is again visible, measuring up to 2 mm in thickness and further decrease in size compared to the prior head CT, previously measuring approximately 3 mm in thickness. No mass effect or midline shift is seen. A mild degree of right cerebral convexity pachymeningeal enhancement is presumably reactive. No diffusion abnormalities are identified to suggest an acute infarct. The ventricles are normal in size. Very mild chronic ischemic microangiopathic changes noted in the cerebral white matter and brainstem. The cerebellum is normal. There is no abnormal parenchymal enhancement. The craniovertebral junction, marrow signal, and midline structures are normal. There is a small developmental venous anomaly in the right middle frontal gyrus near the vertex. The major intracranial flow voids at the level of the [place] of [place] are preserved. The dural venous sinus flow voids are maintained. The mastoid air cells and paranasal sinuses are well aerated. Mild left frontal scalp soft tissue swelling again noted with a very mild amount of subgaleal fluid. The patient is intubated with fluid in the pharyngeal airway. MR/MR head/brain wo/w con IMPRESSION: Further decrease in size of a small right-sided subdural collection without mass effect or midline shift. Otherwise, no acute intracranial process. Decreasing left frontal scalp soft tissue swelling with a mild amount of subgaleal fluid.
--- NOTE | ~2022-04-19 | XR_ITS ---
EXAMINATION: XR CHEST CLINICAL INFORMATION: Fever COMPARISON: Chest x-ray performed earlier the same day TECHNIQUE: Frontal view of the chest was obtained. FINDINGS: Right IJ central venous catheter tip terminates in the proximal right atrium. No airspace consolidation. Slightly blunted left lateral costophrenic angle suggesting trace pleural effusion versus mild pleural thickening. No right pleural effusion. No pneumothorax. Cardiomediastinal silhouette is unchanged and within normal limits. Prominent pulmonary vascular/interstitial markings, at least partially accentuated by low lung volumes and technique versus mild pulmonary vascular congestion. No acute osseous injury. XR/XR chest 1V IMPRESSION: 1. No airspace consolidation. 2. Possible trace left pleural effusion versus mild pleural thickening. 3. Possible mild pulmonary vascular congestion. 4. Right IJ central venous catheter tip terminates in the proximal right atrium.
--- NOTE | ~2022-04-19 | XR_ITS ---
EXAMINATION: XR CHEST CLINICAL INFORMATION: ETT placement COMPARISON: CT chest performed 04/19/2022 at 2:50 PM. TECHNIQUE: Frontal view of the chest was obtained. FINDINGS: The endotracheal tube is at the level of padma. Tip of endotracheal tube is below diaphragm. The lungs are expanded with patchy consolidation left upper lobe and right lung base as seen on CT. Rest of lungs are clear. No pleural effusion seen. Heart size and pulmonary vascularity is normal. Patient is rotated to the right side. No gross bony abnormality seen. XR/XR chest 1V IMPRESSION: Left upper lobe and right lower lobe infiltrates. Tip of endotracheal tube is at the padma. Tip of enteric tube is below diaphragm the stomach.
--- NOTE | ~2022-04-19 | US_ITS ---
EXAMINATION: US DIAGNOSTIC ULTRASOUND BREAST, LEFT CLINICAL INFORMATION: Painful left breast mass. Question abscess versus malignant. COMPARISON: None. TECHNIQUE: Ultrasound of the breast is performed with real-time sterling scale imaging and color Doppler. Imaging was performed by technologist with radiologist not in attendance. FINDINGS: At the 11 o'clock position approximately 1 cm from the nipple there is a hypoechoic structure with some increased through sound transmission measuring 3 x 2 x 3 mm in size and likely representing a small cyst. About the upper inner quadrant 9 to 12 o'clock position there is noted to be edema present within the breast tissue without abscess or suspicious mass appreciated. US/US breast LT limited IMPRESSION: Edema within parenchyma upper inner quadrant of the left breast without abscess formation or suspicious mass appreciated. Clinical followup is suggested and if there is not improvement within a few months, then repeat ultrasound could be performed. ASSESSMENT: BI-RADS 2: Benign. RECOMMENDATION: Clinical followup. This patient's information was entered into a reminder system with a target due date for their next mammogram.
--- NOTE | ~2022-04-19 | CT_ITS ---
EXAMINATION: CT CHEST AND ABDOMEN WITHOUT CONTRAST. CLINICAL INFORMATION: AMS, leukocytosis. COMPARISON: None TECHNIQUE: 5 mm thin axial and reformatted 3 mm thin sagittal coronal images of chest, abdomen and pelvis were obtained without contrast. DLP [id number]. This CT examination was performed using dose optimization technique as appropriate, variously including the following: Automated exposure control Adjustment of MA and/or KV according to patient size(this includes techniques or standardized protocols for targeted exams where dose is matched to indication/reason for exam; extremities or head. Use of iterative reconstruction techniques. FINDINGS: CHEST: LUNGS: There is diffuse subpleural cystic changes and central cystic changes in both upper lobes and lower lobes suggestive of emphysema. There is a patchy parenchymal airspace disease left upper lobe and right lung bases dependent section consistent with infiltrates. No large mass, pulmonary nodule seen. Mediastinum: There is a central trachea with its tip at the padma. The thyroid lobes are symmetrical and normal. Heart size and the great vessels are normal caliber. No abnormal size mediastinal or hilar lymph nodes seen. There is no pericardial effusion. There are no coronary artery calcifications. There is an enteric tube with its tip below diaphragm the stomach. There is minimal bilateral posterior pleural thickening. No pleural effusion or calcification. Axilla: No abnormal size axillary lymph nodes. The chest wall is unremarkable. Upper abdomen: Visualized liver, spleen, pancreas and bilateral adrenal glands unremarkable. The gallbladder has been surgically removed. No aggressive lytic or sclerotic process seen. Osseous structures: There are multiple healing mid and lower left rib fractures. ABDOMEN AND PELVIS: Liver, ducts and gallbladder: The liver is homogeneous in density, normal size and contour. No focal lesion or intrahepatic ductal dilatation seen. The gallbladder has been surgically removed. Spleen: Unremarkable. Pancreas: Unremarkable. Bilateral adrenal glands: Unremarkable. Kidneys: Both kidneys are normal size, shape and position. No radiopaque renal calculi. There are bilateral extrarenal kidney pelvises. Lymphovascular structures: The abdominal aorta is normal caliber. No abnormal size retroperitoneal or mesenteric lymph nodes seen. GI tract: There is scattered stool and gas in colon without distention. The small bowel loops are normal caliber. Appendix is normal caliber. The stomach is nondistended with thin nasogastric tube tip in the pylorus. No free fluid or inflammatory process. Pelvis: The uterus is midline. The urinary bladder is distended. No free fluid. No adnexal mass or abnormal pelvic lymph nodes. Osseous structures: Bone windows reveal no aggressive lytic or sclerotic process. CT/CT abdomen pelvis wo IV con IMPRESSION: Left upper lobe and right lower lobe infiltrates. There is underlying diffuse emphysema with mild honeycombing in both upper lobes. Endotracheal tube tip is at the padma and enteric tube tip is at the pylorus. Distended urinary bladder. Otherwise no acute intra-abdominal process seen. Cholecystectomy changes. Appendix is normal. There are multiple healed/healing mid and lower left rib fractures.
--- NOTE | ~2022-04-19 | US_ITS ---
EXAMINATION: US VENOUS ULTRASOUND WITH DOPPLER LOWER EXTREMITY, BILATERAL CLINICAL INFORMATION: Bilateral leg edema and swelling COMPARISON: Left lower extremity DVT study 06/27/2018 TECHNIQUE: Ultrasound of the deep veins is performed from the hip to the calf with compression sonography and color and pulse Doppler assessment. Spectral analysis with color-flow imaging is performed. FINDINGS: RIGHT: There is normal venous compression and respiratory variation and augmented flow. The visualized common femoral vein, superficial femoral vein, profunda femoral vein, popliteal vein, and the trifurcation region shows no evidence of deep venous thrombosis. There is no significant popliteal fossa cyst. LEFT: There is normal venous compression and respiratory variation and augmented flow. The visualized common femoral vein, superficial femoral vein, profunda femoral vein, popliteal vein, and the trifurcation region shows no evidence of deep venous thrombosis. There is no significant popliteal fossa cyst. If the patient's symptoms persist, followup ultrasound in 5 days 7 days might be of value to exclude proximal propagation from a non-visualized calf vein. US/US venous duplex LE BI IMPRESSION: No DVT demonstrated in either lower extremity.
--- NOTE | ~2022-04-19 | CT_ITS ---
CT HEAD WITHOUT IV CONTRAST CT CERVICAL SPINE WITHOUT IV CONTRAST CT MAXILLOFACIAL WITHOUT IV CONTRAST INDICATION: Head trauma, left orbital trauma, and neck trauma. COMPARISON: Head CT 12/03/2020. TECHNIQUE: Multidetector CT acquisitions of the head, maxillofacial region, and cervical spine were obtained without IV contrast. Multiplanar reformats were acquired and utilized for image interpretation. This CT examination was performed using dose optimization techniques as appropriate, variously including the following: *Automated exposure control *Adjustment of mA and/or kV according to patient size (this includes techniques or standardized protocols for targeted exams where dose is matched to indication/reason for exam; i.e. extremities or head) *Use of iterative reconstruction technique FINDINGS: HEAD: There is no hydrocephalus, midline shift, or other herniation pattern. Darby to white matter differentiation is diffusely maintained without evidence of an evolved acute territorial infarct. The basilar cisterns are preserved. Anterior left frontal scalp hematoma. The paranasal sinuses and the mastoid air cells are well aerated. MAXILLOFACIAL: No acute maxillofacial fractures are appreciated. Chronic traumatic deformity of the nasal bones. There is fluid opacification of the nasal cavities, possibly in the setting of endotracheal and orogastric tubes. No definite nasal septal fractures identified within the nasal septum exhibits similar leftward deviation of the previous exam. The bony orbits are intact. CERVICAL SPINE: No acute osseous findings within the cervical spine. No acute fractures no acute subluxations. Craniocervical junction is normal. No definite prevertebral soft tissue swelling. Cervical alignment is maintained. Imaged lung apices demonstrate pleural blebs. CT/CT cervical spine wo IV con IMPRESSION: - There is a small 3 mm thickness right hemispheric acute subdural hematoma. There is no midline shift nor other significant mass effect. Anterior left frontal scalp hematoma. No calvarial fracture. - No acute maxillofacial fractures are appreciated. Chronic traumatic deformity of the nasal bones. There is fluid opacification of the nasal cavities, possibly in the setting of endotracheal and orogastric tubes. No definite nasal septal fractures identified within the nasal septum exhibits similar leftward deviation of the previous exam. The bony orbits are intact. - No acute osseous findings within the cervical spine. Findings discussed with Ceci Garcia at 3:41 PM on 04/19/2022.
--- NOTE | ~2022-04-19 | XR_ITS ---
EXAMINATION: XR chest 1V CLINICAL INFORMATION: Reason for Exam hypoxia COMPARISON: Chest radiograph 04/19/2022 TECHNIQUE: One view of the chest XR/XR chest 1V FINDINGS/IMPRESSION: * Similar appearance of patchy consolidation in the left lung apex which may reflect airways infection however given the somewhat nodular morphology recommend follow-up radiographs to ensure resolution and no underlying lesion. * No pneumothorax or pleural effusion. * Unchanged cardiomediastinal silhouette. * Endotracheal tube tip terminates approximately 2 cm above the padma and enteric tube courses below the diaphragm, tip not imaged
--- NOTE | ~2022-04-19 | XR_ITS ---
EXAMINATION: XR CHEST CLINICAL INFORMATION: Difficult to ventilate COMPARISON: Chest radiograph earlier today 1:[address] chest abdomen pelvis 04/19/2022 TECHNIQUE: Frontal view of the chest was obtained. FINDINGS: The left hemidiaphragm is mildly elevated, new since the prior study. ET tube remains approximately 4 cm above the padma. NG tube is present with its tip in the gastric antrum. A right IJ catheter has its tip in the distal SVC. Some basilar atelectasis is seen. No consolidations, pleural effusions or pneumothorax is seen. Again seen are multiple left-sided lateral rib fractures, better seen on the prior chest CT 04/19/2022 XR/XR chest 1V IMPRESSION: New elevation of left hemidiaphragm. Redemonstration of left-sided rib fractures. Tubes and catheters in good position.
--- NOTE | ~2022-04-19 | XR_ITS ---
EXAMINATION: XR CHEST CLINICAL INFORMATION: Hypoxia. COMPARISON: 04/22/2022 chest radiograph. TECHNIQUE: Frontal view of the chest was obtained. FINDINGS: Support devices: Right-sided internal jugular catheter with tip terminating at the cavoatrial junction. Interval removal of endotracheal and enteric tubes. Minimal bibasilar linear markings are seen. The upper lung vega are clear. The heart and mediastinal structures are unremarkable. XR/XR chest 1V IMPRESSION: Minimal bibasilar linear atelectasis/scarring. No acute cardiopulmonary process.
--- NOTE | ~2022-04-19 | XR_ITS ---
EXAMINATION: XR CHEST CLINICAL INFORMATION: TLC placement. COMPARISON: 04/20/2022 chest radiograph. TECHNIQUE: Frontal view of the chest was obtained. FINDINGS: Support devices: Endotracheal tube with tip approximately 4.5 cm proximal to padma. Right internal jugular catheter with tip terminating over the atriocaval junction. Enteric tube with tip not included on the study but seen below the left hemidiaphragm. No significant abnormality is noted involving the heart, lungs, mediastinum, bony thorax or soft tissues. XR/XR chest 1V IMPRESSION: 1. Support devices as detailed above. 2. No acute cardiopulmonary process.
--- NOTE | 2022-04-19 11:31 | ECG_ITS ---
Test Reason : OVERDOSE Blood Pressure : / mmHG Vent. Rate : 090 BPM Atrial Rate : 090 BPM P-R Int : 134 ms QRS Dur : 072 ms QT Int : 412 ms P-R-T Axes : 052 055 051 degrees QTc Int : 504 ms Normal sinus rhythm with sinus arrhythmia Otherwise normal ECG When compared with ECG of 03-DEC-2020 16:16, No significant change was found Referred By: Ceci Garcia Electronically Signed By:ALINA PONCE MD
--- NOTE | 2022-04-19 11:33 | ED_ITS ---
HPI - Overdose General Chief Complaint: Overdose Stated Complaint: ams od? Source: EMS and old records reviewed Mode of arrival: EMS Limitations: altered mental status History of Present Illness HPI Narrative: 56 yo female with history of polysubstance abuse on methadone, history of multiple overdoses in the past who presents to the ER from home via EMS after she was found altered, naked on the floor by her when he got home from dialysis this morning. Patient was found banging her head on the ground and had large bumps on her forehead. On PD/Fire arrival patient was given 4mg IN Narcan x4. She was then yelling no Narcan, don't give me Narcan. She was not answering any other questions, was restless and moaning. POC glucose 300s by EMS. Unable to establish IV access and VSS per report. Onset (ago): unknown How Overdose Was Discovered: family/friend present at time and called 911 Associated symptoms: other (restlessness) Treatments Prior to Arrival: narcan Related Data Home Medications Medication Instructions Recorded Confirmed baclofen 10 mg tablet 1 tab PO TID 04/19/22 docusate sodium 100 mg capsule 1 cap PO BEDTIME PRN constipation 04/19/22 ferrous sulfate 325 mg (65 mg 325 mg PO DAILY 04/19/22 iron) tablet (FeroSul) fluoxetine 20 mg capsule 2 cap PO DAILY 04/19/22 gabapentin 800 mg tablet 1 tab PO TID 04/19/22 insulin glargine 100 unit/mL 30 unit subcut BEDTIME 04/19/22 subcutaneous solution (Lantus U-100 Insulin) ketoconazole 2 % shampoo 1 appl topical DAILY 04/19/22 lidocaine-prilocaine 2.5 %-2.5 % 1 appl topical DAILY PRN Pain 04/19/22 04/19/22 topical cream linagliptin 5 mg tablet (Tradjenta) 1 tab PO DAILY 04/19/22 lisinopril 20 1 tab PO DAILY 04/19/22 mg-hydrochlorothiazide 12.5 mg tablet metformin 1,000 mg tablet 1 tab PO BID 04/19/22 omeprazole 20 mg capsule,delayed 1 cap PO DAILY@0630 04/19/22 release pantoprazole 40 mg tablet,delayed 1 tab PO DAILY@0630 04/19/22 release trazodone 50 mg tablet 1 tab PO BEDTIME 04/19/22 Previous Rx's Medication Instructions Recorded naloxone 4 mg/actuation nasal 4 mg intranasal Q2M PRN opioid 11/24/20 spray (Narcan) overdose #2 ea Allergies Allergy/AdvReac Type Severity Reaction Status Date / Time Penicillins Allergy Mild HIVES Verified 12/03/20 11:11 Review of Systems Review of Systems: Yes Unobtainable due to mental condition and Unobtainable due to mental status PMFSH Past Medical History Medical History Diabetes HTN (hypertension) Opiate use Social History Social History Alcohol intake: never Patient Tobacco Use Status: Current everyday Tobacco user Substance Use Type: Heroin Advance Directives: No Advance Directives Information Provided: No Physical Exam Vital Signs: Vital Signs: Last Vital Signs Pulse 112 H 04/19/22 11:59 Resp 24 H 04/19/22 11:59 BP 149/93 H 04/19/22 11:59 Pulse Ox 100 04/19/22 11:59 O2 Del Method 04/19/22 11:59 BMI result Body Mass Index 29.2 Appearance: middle aged woman, restless with eyes closed on the stretcher, not responding to questions Head: multiple large hematomas on frontal aspect and left periorbital area Eyes: Pupils dilated 4mm equal, round and reactive to light. ENT: Pharynx normal. Neck: Normal inspection. Neck supple. No midline tenderness CVS: tachycardic regular rhythm, Pulses normal. Respiratory: No respiratory distress. Breath sounds normal. Abdomen: well healed surgical scar in RUQ, Soft and nontender. +BS x4 Skin: Skin warm and dry. Normal skin color. Normal skin turgor. No rashes. Extremities: No lower extremity edema. moves all extremities, no apparent injuries. Neuro: eyes closed, moving all 4 extremities, restless in bed, not following commands or answering questions. saying no Narcan Course Course Course Narrative: 56-year-old female with a history of polysubstance abuse, previously on methadone (unclear if still on it) presents to the ER for evaluation of altered mental status and head trauma, concern for overdose. She was found banging her head on the for in furniture naked at home. Given a total of 80 of intranasal Narcan with improvement in mentation, although continues to be restless and not answering questions appropriately. Concern for polysubstance use, concern for fentanyl, possible PCP, possible bath salts. Temp 99.7 rectally. Tachycardic and tachypneic most likely due to substance abuse. Reevaluation(s) Reevaluation #1: 13:00 - WBC 16.8. CKD at her baseline with BUN/Cr 36/2.09 (51/1.84 in Mar) however she has an anion gap of 29 with pending bicarb. will need to check lactic acid and blood cultures, concern for possible euglycemic DKA - added acet one and VBG. Starting IVF. Straight cath for urine. Patient defecated all over herself, liquid brown stool. Most likely from opiate withdrawal. Reevaluation #2: 13:40 - Bicarb is 9. Lactic acid, VBG an acetone are still pending. Her CPK is 2500 consistent with significant rhabdomyolysis. 2 L of IV fluids are infusing. Second IV has been placed. Patient placed in soft wrist restraints for her safety, ability to administer IV fluids. Patient has a new downward facing gaze. Concern for neurologic injury. Will administer 50 mg of IV ketamine and obtain CT scan for further evaluation. Dr. Coates from ICU has been contacted. 2 L IV fluid have been ordered. Her weight is 65.1 kg. Given pateints leukocytosis, tachycardica, lactic acid 3.7 she meets sepsis criteria. Could be SIRS response from drugs however will empirically cover with Rocephin and Azithromycin for now. No obvious source of infection. UA negative. Will bach scan to look for a source. Doubt meningitis. Reevaluation #3: 14:05 - VBG with pH 7.53, consistent with a respiratory alkalosis. Acetone negative, no ketones in the urine, making euglycemic DKA less likely. Patient continues to be altered, not responding appropriately. Case was discussed with Dr. Puente windows systems architect who is recommending intubation for airway protection, bach scan, admit to ICU for further management. Will check salicylate level, serum osmolality. 15: 00 - Patient's daughter called, asking if her mother was alive and then hung up the phone. Attempted to call the daughter back to provide clinical update however her number listed is out of service. Additional Reevaluation(s): 15:15 - deep suctioned for some thick secretions, sent for culture. EKG with prolonged QTc. Mg++ ordered Consultations Consultation #1: ICU Dr. Puente MDM - Overdose Medical Records Attestation: I reviewed the patient's medical records. Lab Data Attestation: I reviewed the patient's lab results. Result diagrams: 04/19/22 11:56 04/19/22 12:32 Labs: Lab Results 04/19/22 04/19/22 04/19/22 Range/Units 11:33 11:42 11:56 WBC 16.8 H (4.8-10.8) X10*3/uL RBC 4.20 (4.20-5.50) X10*6/uL Hgb 12.1 (12.0-16.0) g/dl Hct 37.8 (37.0-47.0) % MCV 90.0 (80.0-98.0) fL MCH 28.8 (27.0-33.0) pg MCHC 32.0 (31.0-35.0) g/dl RDW 14.0 (11.0-16.0) % Plt Count 536 H D (160-400) X10*3/uL MPV 10.6 (9.4-12.3) fL Immature Gran % (Auto) 0.8 H (0.0-0.4) % Neut % (Auto) 74.5 H (45-73) % Lymph % (Auto) 17.7 L (20-40) % [place] % (Auto) 5.8 (2-11) % Eos % (Auto) 0.7 (0-4) % Baso % (Auto) 0.5 (0-2) % Lymph # (Auto) 3.0 (1.2-4.9) X10*3/uL [place] # (Auto) 1.0 (0.1-1.2) X10*3/uL Eos # (Auto) 0.1 (0.0-0.4) X10*3/uL Baso # (Auto) 0.1 (0.0-0.2) X10*3/uL Abs Immat Gran (auto) 0.13 H (0.00-0.03) X10*3/uL Absolute Neuts (auto) 12.5 H (2.0-8.3) x10*3/uL Absolute Nucleated RBC 0.000 (0.0-0.012) X10*3/uL Nucleated RBC % (auto) 0.0 (0.0-0.2) /100WBC VBG pH (7.32-7.43) VBG pCO2 mmHg VBG pO2 mmHg VBG HCO3 (22-26) mmol/L VBG O2 Saturation % VBG Base Excess mmol/L Sodium (135-145) mmol/L Potassium (3.3-5.1) mmol/L Chloride (96-108) mmol/L Carbon Dioxide (22-29) mmol/L Anion Gap (12-20) BUN (9-16) mg/dL Creatinine (0.5-1.4) mg/dL Estim Creat Clear Calc Estimated GFR POC Glucose 226 H (60-115) mg/dL Random Glucose (60-115) mg/dL Lactic Acid (0.5-2.0) mmol/L Calcium (8.4-10.2) mg/dL Magnesium (1.6-2.6) mg/dL Total Bilirubin (0.0-1.0) mg/dL Direct Bilirubin (0.0-0.5) mg/dL AST (5-31) U/L ALT (0-31) U/L Alkaline Phosphatase (39-117) U/L Total Creatine Kinase (26-140) U/L Total Protein (6.5-8.0) g/dL Albumin (3.5-5.0) g/dL Urine Color Urine Appearance Urine pH (5.0-9.0) Ur Specific [place] (1.005-1.025) Urine Protein (Neg-Trace) mg/dL Urine Glucose (UA) (Negative) mg/dL Urine Ketones (Negative) mg/dL Urine Blood (Negative) Urine Nitrite (Negative) Ur Leukocyte Esterase (Negative) Urine RBC (0-2) /HPF Urine WBC (0-5) /HPF Ur Squamous Epith Cells (0-2) /HPF Urine Bacteria (None Seen) Hyaline Casts (0-2) /LPF Salicylates (15-30) mg/dL Urine Opiates Screen (Not Detect) Urine Fentanyl Screen (Not Detect) Acetaminophen (<30) mcg/mL Ur Barbiturates Screen (Not Detect) Ur Phencyclidine Scrn (Not Detect) Ur Amphetamines Screen (Not Detect) U Benzodiazepines Scrn (Not Detect) Urine Cocaine Screen (Not Detect) U Marijuana (THC) Screen (Not Detect) Ethyl Alcohol mg/dL Acetone, Qual (Negative) COVID-19 ([facility]) Negative (Negative) COVID-19 Clin Com See Note 04/19/22 04/19/22 04/19/22 Range/Units 12:32 12:32 12:50 WBC (4.8-10.8) X10*3/uL RBC (4.20-5.50) X10*6/uL Hgb (12.0-16.0) g/dl Hct (37.0-47.0) % MCV (80.0-98.0) fL MCH (27.0-33.0) pg MCHC (31.0-35.0) g/dl RDW (11.0-16.0) % Plt Count (160-400) X10*3/uL MPV (9.4-12.3) fL Immature Gran % (Auto) (0.0-0.4) % Neut % (Auto) (45-73) % Lymph % (Auto) (20-40) % [place] % (Auto) (2-11) % Eos % (Auto) (0-4) % Baso % (Auto) (0-2) % Lymph # (Auto) (1.2-4.9) X10*3/uL [place] # (Auto) (0.1-1.2) X10*3/uL Eos # (Auto) (0.0-0.4) X10*3/uL Baso # (Auto) (0.0-0.2) X10*3/uL Abs Immat Gran (auto) (0.00-0.03) X10*3/uL Absolute Neuts (auto) (2.0-8.3) x10*3/uL Absolute Nucleated RBC (0.0-0.012) X10*3/uL Nucleated RBC % (auto) (0.0-0.2) /100WBC VBG pH (7.32-7.43) VBG pCO2 mmHg VBG pO2 mmHg VBG HCO3 (22-26) mmol/L VBG O2 Saturation % VBG Base Excess mmol/L Sodium 134 L (135-145) mmol/L Potassium 5.1 D (3.3-5.1) mmol/L Chloride 100 (96-108) mmol/L Carbon Dioxide 9 L* D (22-29) mmol/L Anion Gap 29 H (12-20) BUN 36 H (9-16) mg/dL Creatinine 2.09 H (0.5-1.4) mg/dL Estim Creat Clear Calc 30.5 Estimated GFR 25 POC Glucose (60-115) mg/dL Random Glucose 249 H (60-115) mg/dL Lactic Acid (0.5-2.0) mmol/L Calcium 9.5 D (8.4-10.2) mg/dL Magnesium 1.5 L (1.6-2.6) mg/dL Total Bilirubin 0.3 (0.0-1.0) mg/dL Direct Bilirubin < 0.2 (0.0-0.5) mg/dL AST 34 H D (5-31) U/L ALT 15 (0-31) U/L Alkaline Phosphatase 150 H (39-117) U/L Total Creatine Kinase 2529 H D (26-140) U/L Total Protein 8.5 H (6.5-8.0) g/dL Albumin 4.1 (3.5-5.0) g/dL Urine Color Yellow Urine Appearance Clear Urine pH 5.5 (5.0-9.0) Ur Specific [place] 1.010 (1.005-1.025) Urine Protein 100 (2+) H (Neg-Trace) mg/dL Urine Glucose (UA) 500 H (Negative) mg/dL Urine Ketones Negative (Negative) mg/dL Urine Blood Large (3+) H (Negative) Urine Nitrite Negative (Negative) Ur Leukocyte Esterase Negative (Negative) Urine RBC 0-2 (0-2) /HPF Urine WBC 0-5 (0-5) /HPF Ur Squamous Epith Cells 0-2 (0-2) /HPF Urine Bacteria None Seen (None Seen) Hyaline Casts 0-2 (0-2) /LPF Salicylates < 5.0 L (15-30) mg/dL Urine Opiates Screen (Not Detect) Urine Fentanyl Screen (Not Detect) Acetaminophen < 1 (<30) mcg/mL Ur Barbiturates Screen (Not Detect) Ur Phencyclidine Scrn (Not Detect) Ur Amphetamines Screen (Not Detect) U Benzodiazepines Scrn (Not Detect) Urine Cocaine Screen (Not Detect) U Marijuana (THC) Screen (Not Detect) Ethyl Alcohol < 10 mg/dL Acetone, Qual (Negative) COVID-19 ([facility]) (Negative) COVID-19 Clin Com 04/19/22 04/19/22 04/19/22 Range/Units 12:50 13:21 13:21 WBC (4.8-10.8) X10*3/uL RBC (4.20-5.50) X10*6/uL Hgb (12.0-16.0) g/dl Hct (37.0-47.0) % MCV (80.0-98.0) fL MCH (27.0-33.0) pg MCHC (31.0-35.0) g/dl RDW (11.0-16.0) % Plt Count (160-400) X10*3/uL MPV (9.4-12.3) fL Immature Gran % (Auto) (0.0-0.4) % Neut % (Auto) (45-73) % Lymph % (Auto) (20-40) % [place] % (Auto) (2-11) % Eos % (Auto) (0-4) % Baso % (Auto) (0-2) % Lymph # (Auto) (1.2-4.9) X10*3/uL [place] # (Auto) (0.1-1.2) X10*3/uL Eos # (Auto) (0.0-0.4) X10*3/uL Baso # (Auto) (0.0-0.2) X10*3/uL Abs Immat Gran (auto) (0.00-0.03) X10*3/uL Absolute Neuts (auto) (2.0-8.3) x10*3/uL Absolute Nucleated RBC (0.0-0.012) X10*3/uL Nucleated RBC % (auto) (0.0-0.2) /100WBC VBG pH (7.32-7.43) VBG pCO2 mmHg VBG pO2 mmHg VBG HCO3 (22-26) mmol/L VBG O2 Saturation % VBG Base Excess mmol/L Sodium (135-145) mmol/L Potassium (3.3-5.1) mmol/L Chloride (96-108) mmol/L Carbon Dioxide (22-29) mmol/L Anion Gap (12-20) BUN (9-16) mg/dL Creatinine (0.5-1.4) mg/dL Estim Creat Clear Calc Estimated GFR POC Glucose (60-115) mg/dL Random Glucose (60-115) mg/dL Lactic Acid 3.7 H* (0.5-2.0) mmol/L Calcium (8.4-10.2) mg/dL Magnesium (1.6-2.6) mg/dL Total Bilirubin (0.0-1.0) mg/dL Direct Bilirubin (0.0-0.5) mg/dL AST (5-31) U/L ALT (0-31) U/L Alkaline Phosphatase (39-117) U/L Total Creatine Kinase (26-140) U/L Total Protein (6.5-8.0) g/dL Albumin (3.5-5.0) g/dL Urine Color Urine Appearance Urine pH (5.0-9.0) Ur Specific [place] (1.005-1.025) Urine Protein (Neg-Trace) mg/dL Urine Glucose (UA) (Negative) mg/dL Urine Ketones (Negative) mg/dL Urine Blood (Negative) Urine Nitrite (Negative) Ur Leukocyte Esterase (Negative) Urine RBC (0-2) /HPF Urine WBC (0-5) /HPF Ur Squamous Epith Cells (0-2) /HPF Urine Bacteria (None Seen) Hyaline Casts (0-2) /LPF Salicylates (15-30) mg/dL Urine Opiates Screen POSITIVE H (Not Detect) Urine Fentanyl Screen POSITIVE H (Not Detect) Acetaminophen (<30) mcg/mL Ur Barbiturates Screen Not Detected (Not Detect) Ur Phencyclidine Scrn Not Detected (Not Detect) Ur Amphetamines Screen Not Detected (Not Detect) U Benzodiazepines Scrn Not Detected (Not Detect) Urine Cocaine Screen POSITIVE H (Not Detect) U Marijuana (THC) Screen Not Detected (Not Detect) Ethyl Alcohol mg/dL Acetone, Qual Negative (Negative) COVID-19 ([facility]) (Negative) COVID-19 Clin Com 04/19/22 Range/Units 13:41 WBC (4.8-10.8) X10*3/uL RBC (4.20-5.50) X10*6/uL Hgb (12.0-16.0) g/dl Hct (37.0-47.0) % MCV (80.0-98.0) fL MCH (27.0-33.0) pg MCHC (31.0-35.0) g/dl RDW (11.0-16.0) % Plt Count (160-400) X10*3/uL MPV (9.4-12.3) fL Immature Gran % (Auto) (0.0-0.4) % Neut % (Auto) (45-73) % Lymph % (Auto) (20-40) % [place] % (Auto) (2-11) % Eos % (Auto) (0-4) % Baso % (Auto) (0-2) % Lymph # (Auto) (1.2-4.9) X10*3/uL [place] # (Auto) (0.1-1.2) X10*3/uL Eos # (Auto) (0.0-0.4) X10*3/uL Baso # (Auto) (0.0-0.2) X10*3/uL Abs Immat Gran (auto) (0.00-0.03) X10*3/uL Absolute Neuts (auto) (2.0-8.3) x10*3/uL Absolute Nucleated RBC (0.0-0.012) X10*3/uL Nucleated RBC % (auto) (0.0-0.2) /100WBC VBG pH 7.53 H (7.32-7.43) VBG pCO2 18 mmHg VBG pO2 220 mmHg VBG HCO3 15 L (22-26) mmol/L VBG O2 Saturation 100.0 % VBG Base Excess -4.4 mmol/L Sodium (135-145) mmol/L Potassium (3.3-5.1) mmol/L Chloride (96-108) mmol/L Carbon Dioxide (22-29) mmol/L Anion Gap (12-20) BUN (9-16) mg/dL Creatinine (0.5-1.4) mg/dL Estim Creat Clear Calc Estimated GFR POC Glucose (60-115) mg/dL Random Glucose (60-115) mg/dL Lactic Acid (0.5-2.0) mmol/L Calcium (8.4-10.2) mg/dL Magnesium (1.6-2.6) mg/dL Total Bilirubin (0.0-1.0) mg/dL Direct Bilirubin (0.0-0.5) mg/dL AST (5-31) U/L ALT (0-31) U/L Alkaline Phosphatase (39-117) U/L Total Creatine Kinase (26-140) U/L Total Protein (6.5-8.0) g/dL Albumin (3.5-5.0) g/dL Urine Color Urine Appearance Urine pH (5.0-9.0) Ur Specific [place] (1.005-1.025) Urine Protein (Neg-Trace) mg/dL Urine Glucose (UA) (Negative) mg/dL Urine Ketones (Negative) mg/dL Urine Blood (Negative) Urine Nitrite (Negative) Ur Leukocyte Esterase (Negative) Urine RBC (0-2) /HPF Urine WBC (0-5) /HPF Ur Squamous Epith Cells (0-2) /HPF Urine Bacteria (None Seen) Hyaline Casts (0-2) /LPF Salicylates (15-30) mg/dL Urine Opiates Screen (Not Detect) Urine Fentanyl Screen (Not Detect) Acetaminophen (<30) mcg/mL Ur Barbiturates Screen (Not Detect) Ur Phencyclidine Scrn (Not Detect) Ur Amphetamines Screen (Not Detect) U Benzodiazepines Scrn (Not Detect) Urine Cocaine Screen (Not Detect) U Marijuana (THC) Screen (Not Detect) Ethyl Alcohol mg/dL Acetone, Qual (Negative) COVID-19 ([facility]) (Negative) COVID-19 Clin Com ECG Data Attestation: I personally reviewed and interpreted this ECG as follows: ECG interpretation date: 04/19/22 ECG interpretation time: 15:15 Prior ECG tracings: available for review Interpretation: Normal sinus rhythm with sinus arrhythmia, ventricular rate 90 beats per minute, prolonged QTC 504 MS, no ST segment elevations or depressions Critical Care Time Critical Care Time Critical Care Time: Yes Total Critical Care Time: 58 Attestation: I have personally provided critical care time exclusive of time spent on separately billable procedures. Time includes review of lab data, radiology results, discussion with consultants, and monitoring for potential decompensation. Intervention performed as documented. Discharge Plan Discharge Clinical Impression: Drug overdose, Rhabdomyolysis, Acute encephalopathy, Polysubstance abuse, Lactic acidosis, Acute respiratory alkalosis, CKD (chronic kidney disease), Diabetes Patient Disposition: Admitted As Inpatient
[2022-04-19] MEDS: Haloperidol Lactate 5 MG/ML VIAL IM (11:36)
[2022-04-19 11:37] LABS: Glucose, Whole Blood 226 mg/dL (60-115)
--- NOTE | 2022-04-19 12:00 | PC.NURSE ---
PT NOT FOLLOWING COMMANDS, AGITATED AND RESTLESS THOUGH NON VERBAL AT THIS TIME. VSS. PIV PLACED IN RIGHT HAND. RAILS UP, PADS IN PLACE TO AVOID FURTHER INJURY. SINUS TACH ON MONITOR.
[2022-04-19 12:03] LABS: MANUAL DIFF FLAG NO
[2022-04-19 12:05] LABS: Basophils Absolute Auto 0.1 X10*3/uL (0.0-0.2); Basophils Percent Auto 0.5 % (0-2); Eosinophils Absolute Auto 0.1 X10*3/uL (0.0-0.4); Eosinophils Percent Auto 0.7 % (0-4); Hematocrit 37.8 % (37.0-47.0); Hemoglobin 12.1 g/dl (12.0-16.0); Imm Gran Abs Auto 0.13 X10*3/uL (0.00-0.03); Imm Gran Pct Auto 0.8 % (0.0-0.4); Lymphocytes Percent Auto 17.7 % (20-40); Mean Corpuscular Hemoglobin 28.8 pg (27.0-33.0); Mean Platelet Volume 10.6 fL (9.4-12.3); Monocytes Percent Auto 5.8 % (2-11); Neutrophils Absolute Auto 12.5 x10*3/uL (2.0-8.3); Neutrophils Percent Auto 74.5 % (45-73); Platelet Count 536 X10*3/uL (160-400); White Blood Count 16.8 X10*3/uL (4.8-10.8)
[2022-04-19 12:32] LABS: COVID-19 Test Negative (Negative); IDNOW Serial# 9DB6401D
[2022-04-19 12:59] LABS: Alanine Aminotransferase 15 U/L (0-31); Albumin Level 4.1 g/dL (3.5-5.0); Alkaline Phosphatase 150 U/L (39-117); Aspartate Amino Transferase 34 U/L (5-31); Bilirubin Direct < 0.2 mg/dL (0.0-0.5); Bilirubin Total 0.3 mg/dL (0.0-1.0); Blood Urea Nitrogen 36 mg/dL (9-16); Calcium 9.5 mg/dL (8.4-10.2); Creatinine Clr Calc Pharmacy 30.5; Estimated Glomerular Filt Rate 25; Glucose Random 249 mg/dL (60-115); Magnesium 1.5 mg/dL (1.6-2.6)
[2022-04-19 13:04] LABS: Ethanol < 10 mg/dL
[2022-04-19 13:05] LABS: Anion Gap 29 (12-20); Chloride 100 mmol/L (96-108); Potassium 5.1 mmol/L (3.3-5.1); Sodium 134 mmol/L (135-145)
[2022-04-19] MEDS: ondansetron HCL 4 MG/2 ML VIAL IVPUSH (13:11)
[2022-04-19] MEDS: Midazolam HCl/PF 2 MG/2 ML VIAL 4 MG IVPUSH ×2 (13:11→14:30)
[2022-04-19 13:32] LABS: Carbon Dioxide 9 mmol/L (22-29)
[2022-04-19 13:38] LABS: Acetone, serum QL Negative (Negative)
[2022-04-19] MEDS: 0.9 % Sodium Chloride 1,000 ML 999 ML IVCONT (13:41)
[2022-04-19 13:46] LABS: Venous Blood Gas Refer to POC result
[2022-04-19 13:46] LABS: VBG Base Excess -4.4 mmol/L; VBG HCO3 15 mmol/L (22-26); VBG pCO2 18 mmHg; VBG pH 7.53 (7.32-7.43); VBG pO2 220 mmHg
[2022-04-19 13:47] LABS: Appearance Urine Clear; Color Urine Yellow; Glucose Urine UA 500 mg/dL (Negative); Leukocyte Esterase Urine Negative (Negative); Nitrite Urine Negative (Negative); PH 5.5 (5.0-9.0); UMIC TRIGGER UACC YES; Urine Blood Large (3+) (Negative); Urine Ketones Negative (Negative); Urine Protein 100 (2+) mg/dL (Neg-Trace)
--- NOTE | 2022-04-19 13:47 | PC.NURSE ---
Pt cleaned up at 1330-Large bowel movement, noted. MLP notfied of new downward bilateral gaze. Notied intermittent coneal reflex.
[2022-04-19 14:01] LABS: Barbiturates, Urine Not Detected (Not Detect); Benzodiazepines Screen Urine Not Detected (Not Detect); Cannabinoid Screen Urine Not Detected (Not Detect); Cocaine Screen Urine POSITIVE (Not Detect); Fentanyl, urine POSITIVE (Not Detect); Opiate Screen Urine POSITIVE (Not Detect); Phencyclidine Screen Urine Not Detected (Not Detect)
[2022-04-19 14:04] LABS: Lactic Acid 3.7 mmol/L (0.5-2.0)
[2022-04-19 14:05] LABS: Amphetamine Screen Urine Not Detected (Not Detect); Bacteria Urine None Seen (None Seen); Hyaline Casts Urine 0-2 /LPF (0-2); RBC Urine 0-2 /HPF (0-2); Squamous Epithelial Cell Urine 0-2 /HPF (0-2); WBC Urine 0-5 /HPF (0-5)
[2022-04-19] MEDS: Rocuronium Bromide 50 MG/5 ML VIAL IVPUSH (14:20)
[2022-04-19] MEDS: Lactated Ringers 1,000 ML 999 ML IV (14:35)
--- NOTE | 2022-04-19 14:50 | P.HPCC_ITS ---
History of Present Illness Date of Service: 04/19/22 Attending physician on admission: Ceci Garcia Chief Complaint: Altered mental status and delirium-polysubstance abuser If 56-year-old female who was found on the floor with visible hematomas on the forehead from hitting the floor and it is state of agitated delirium with fecal and urinary incontinence brought into the emergency room requiring 4 point restraints Sharee by multiple people certainly requiring stat imaging of her head n eed for signs of intracranial bleeding is a known polysubstance abuser consistently cocaine and opiates and fentanyl and apparently the same today with imaging showing a bilateral lung infiltrates benign abdomen small right subdural hematoma but very small without any mass effect and clearly because of self the destructive dangerous behavior needed IV sedation initially with higher doses of Versed and then eventually propofol and then of course for the sake of airway protection required intubation which went without complication no evidence of any secretions and there was nothing in the pharynx either and she remained on propofol and Versed drips and then eventually dexmedetomidine was to be added as well because she was markedly acutely hypertensive and tachycardic but this acute hyper sympathetic response seem to subside current pressure mean of 66 oxygen saturation 94% normal sinus rhythm and rate [address]-T changes by EKG Review of Systems Review of Systems: Yes Unobtainable due to mental status PMFSH Past Medical History Medical History Diabetes HTN (hypertension) Opiate use Social History Social History Household Members: Unknown / Unable to assess Housing: Unknown / Unable to assess Unable to assess alcohol history related to: Unable to respond and Unknown Alcohol intake: never Patient Tobacco Use Status: Tobacco use Unknown Use of substances other than those prescribed or required for medical reasons: Unable to respond Substance Use Type: Heroin Advance Directives: No Advance Directives Information Provided: No Patient : No (unable to assess) Meds Allergies Allergy/AdvReac Type Severity Reaction Status Date / Time Penicillins Allergy Mild HIVES Verified 12/03/20 11:11 Active Medications: Current Medications Chlorhexidine Gluconate (Chlorhexidine Gluc Oral Rinse 15 Ml Mouthwash) 15 ml BUCCAL Q8H GALILEA Azithromycin 500 mg/ Sodium (Chloride) 250 mls @ 125 mls/hr IV ONCE ONE Stop: 04/19/22 16:11 Pantoprazole Sodium 40 mg/ (Sodium Chloride) 110 mls @ 400 mls/hr IV DAILY@0630 [facility] Propofol (Diprivan) 1,000 mg in 100 mls @ 0 mls/hr IVCONT .Q0M [facility]; Protocol Potassium Chloride/Sodium Chloride (Kcl 20 Meq In 0.45% Sod) 20 meq in 1,000 mls @ 80 mls/hr IVCONT .[id number] [facility] Pharmacy Consult (Consult Rx Perform Med Rec) 1 each MISCELLANE ONCE PRN PRN Reason: Consult order Home Medications Medication Instructions Recorded Confirmed Last Taken Type baclofen 10 mg tablet 1 tab PO TID 04/19/22 04/19/22 Unknown History docusate sodium 100 mg capsule 1 cap PO BEDTIME PRN constipation 04/19/22 04/19/22 Unknown History ferrous sulfate 325 mg (65 mg 325 mg PO DAILY 04/19/22 04/19/22 Unknown History iron) tablet (FeroSul) fluoxetine 20 mg capsule 2 cap PO DAILY 04/19/22 04/19/22 Unknown History gabapentin 800 mg tablet 1 tab PO TID 04/19/22 04/19/22 Unknown History insulin glargine 100 unit/mL 30 unit subcut BEDTIME 04/19/22 04/19/22 Unknown History subcutaneous solution (Lantus U-100 Insulin) lidocaine-prilocaine 2.5 %-2.5 % 1 appl topical DAILY PRN Pain 04/19/22 04/19/22 Unknown History topical cream linagliptin 5 mg tablet (Tradjenta) 1 tab PO DAILY 04/19/22 04/19/22 Unknown History lisinopril 20 1 tab PO DAILY 04/19/22 04/19/22 Unknown History mg-hydrochlorothiazide 12.5 mg tablet metformin 1,000 mg tablet 1 tab PO BID 04/19/22 04/19/22 Unknown History omeprazole 20 mg capsule,delayed 1 cap PO DAILY@0630 04/19/22 04/19/22 Unknown History release pantoprazole 40 mg tablet,delayed 1 tab PO DAILY@0630 04/19/22 04/19/22 Unknown History release trazodone 50 mg tablet 1 tab PO BEDTIME 04/19/22 04/19/22 Unknown History Physical Exam Vital Signs: Vital Signs: Last Vital Signs Pulse 112 H 04/19/22 11:59 Resp 24 H 04/19/22 11:59 BP 149/93 H 04/19/22 11:59 Pulse Ox 100 04/19/22 11:59 O2 Del Method 04/19/22 11:59 BMI result Body Mass Index 29.2 Currently by exam as adequate bilateral carotid upstrokes no neck vein distention Chest clear without adventitious sounds Abdomen with positive bowel sounds no organomegaly Skin without evidence of livedo or acrocyanosis nor cellulitis Results Labs CBC and Chem 7: 04/19/22 11:56 04/19/22 12:32 Labs: Laboratory Results - last 24 hr 04/19/22 04/19/22 04/19/22 11:33 11:42 11:56 MCV 90.0 MCH 28.8 MCHC 32.0 RDW 14.0 Plt Count 536 H D MPV 10.6 Immature Gran % (Auto) 0.8 H Neut % (Auto) 74.5 H Lymph % (Auto) 17.7 L [place] % (Auto) 5.8 Eos % (Auto) 0.7 Baso % (Auto) 0.5 Lymph # (Auto) 3.0 [place] # (Auto) 1.0 Eos # (Auto) 0.1 Baso # (Auto) 0.1 Abs Immat Gran (auto) 0.13 H Absolute Neuts (auto) 12.5 H Absolute Nucleated RBC 0.000 Nucleated RBC % (auto) 0.0 VBG pH VBG pCO2 VBG pO2 VBG HCO3 VBG O2 Saturation VBG Base Excess Anion Gap Estim Creat Clear Calc Estimated GFR POC Glucose 226 H Random Glucose Lactic Acid Calcium Magnesium Total Bilirubin Direct Bilirubin AST ALT Alkaline Phosphatase Total Creatine Kinase Total Protein Albumin Urine Color Urine Appearance Urine pH Ur Specific [place] Urine Protein Urine Glucose (UA) Urine Ketones Urine Blood Urine Nitrite Ur Leukocyte Esterase Urine RBC Urine WBC Ur Squamous Epith Cells Urine Bacteria Hyaline Casts Urine Opiates Screen Urine Fentanyl Screen Ur Barbiturates Screen Ur Phencyclidine Scrn Ur Amphetamines Screen U Benzodiazepines Scrn Urine Cocaine Screen U Marijuana (THC) Screen Ethyl Alcohol Acetone, Qual COVID-19 (MARYCARMEN) Negative COVID-19 Clin Com See Note 04/19/22 04/19/22 04/19/22 12:32 12:32 12:50 MCV MCH MCHC RDW Plt Count MPV Immature Gran % (Auto) Neut % (Auto) Lymph % (Auto) [place] % (Auto) Eos % (Auto) Baso % (Auto) Lymph # (Auto) [place] # (Auto) Eos # (Auto) Baso # (Auto) Abs Immat Gran (auto) Absolute Neuts (auto) Absolute Nucleated RBC Nucleated RBC % (auto) VBG pH VBG pCO2 VBG pO2 VBG HCO3 VBG O2 Saturation VBG Base Excess Anion Gap 29 H Estim Creat Clear Calc 30.5 Estimated GFR 25 POC Glucose Random Glucose 249 H Lactic Acid Calcium 9.5 D Magnesium 1.5 L Total Bilirubin 0.3 Direct Bilirubin < 0.2 AST 34 H D ALT 15 Alkaline Phosphatase 150 H Total Creatine Kinase 2529 H D Total Protein 9.2 H Albumin 4.1 Urine Color Yellow Urine Appearance Clear Urine pH 5.5 Ur Specific [place] 1.010 Urine Protein 100 (2+) H Urine Glucose (UA) 500 H Urine Ketones Negative Urine Blood Large (3+) H Urine Nitrite Negative Ur Leukocyte Esterase Negative Urine RBC 0-2 Urine WBC 0-5 Ur Squamous Epith Cells 0-2 Urine Bacteria None Seen Hyaline Casts 0-2 Urine Opiates Screen Urine Fentanyl Screen Ur Barbiturates Screen Ur Phencyclidine Scrn Ur Amphetamines Screen U Benzodiazepines Scrn Urine Cocaine Screen U Marijuana (THC) Screen Ethyl Alcohol < 10 Acetone, Qual COVID-19 (MARYCARMEN) COVID-19 Clin Com 04/19/22 04/19/22 04/19/22 12:50 13:21 13:21 MCV MCH MCHC RDW Plt Count MPV Immature Gran % (Auto) Neut % (Auto) Lymph % (Auto) [place] % (Auto) Eos % (Auto) Baso % (Auto) Lymph # (Auto) [place] # (Auto) Eos # (Auto) Baso # (Auto) Abs Immat Gran (auto) Absolute Neuts (auto) Absolute Nucleated RBC Nucleated RBC % (auto) VBG pH VBG pCO2 VBG pO2 VBG HCO3 VBG O2 Saturation VBG Base Excess Anion Gap Estim Creat Clear Calc Estimated GFR POC Glucose Random Glucose Lactic Acid 3.7 H* Calcium Magnesium Total Bilirubin Direct Bilirubin AST ALT Alkaline Phosphatase Total Creatine Kinase Total Protein Albumin Urine Color Urine Appearance Urine pH Ur Specific [place] Urine Protein Urine Glucose (UA) Urine Ketones Urine Blood Urine Nitrite Ur Leukocyte Esterase Urine RBC Urine WBC Ur Squamous Epith Cells Urine Bacteria Hyaline Casts Urine Opiates Screen POSITIVE H Urine Fentanyl Screen POSITIVE H Ur Barbiturates Screen Not Detected Ur Phencyclidine Scrn Not Detected Ur Amphetamines Screen Not Detected U Benzodiazepines Scrn Not Detected Urine Cocaine Screen POSITIVE H U Marijuana (THC) Screen Not Detected Ethyl Alcohol Acetone, Qual Negative COVID-19 (MARYCARMEN) COVID-19 [facility] Com 04/19/22 13:41 MCV MCH MCHC RDW Plt Count MPV Immature Gran % (Auto) Neut % (Auto) Lymph % (Auto) [place] % (Auto) Eos % (Auto) Baso % (Auto) Lymph # (Auto) [place] # (Auto) Eos # (Auto) Baso # (Auto) Abs Immat Gran (auto) Absolute Neuts (auto) Absolute Nucleated RBC Nucleated RBC % (auto) VBG pH 7.53 H VBG pCO2 18 VBG pO2 220 VBG HCO3 15 L VBG O2 Saturation 100.0 VBG Base Excess -4.4 Anion Gap Estim Creat Clear Calc Estimated GFR POC Glucose Random Glucose Lactic Acid Calcium Magnesium Total Bilirubin Direct Bilirubin AST ALT Alkaline Phosphatase Total Creatine Kinase Total Protein Albumin Urine Color Urine Appearance Urine pH Ur Specific [place] Urine Protein Urine Glucose (UA) Urine Ketones Urine Blood Urine Nitrite Ur Leukocyte Esterase Urine RBC Urine WBC Ur Squamous Epith Cells Urine Bacteria Hyaline Casts Urine Opiates Screen Urine Fentanyl Screen Ur Barbiturates Screen Ur Phencyclidine Scrn Ur Amphetamines Screen U Benzodiazepines Scrn Urine Cocaine Screen U Marijuana (THC) Screen Ethyl Alcohol Acetone, Qual COVID-19 (MARYCARMEN) COVID-19 Clin Com Assessment and Plan (1) Drug overdose: Status: Acute (2) Rhabdomyolysis: Status: Acute (3) Toxic metabolic encephalopathy: Status: Acute (4) Polysubstance abuse: Status: Acute (5) Lactic acidosis: Status: Acute (6) Acute respiratory alkalosis: Status: Acute (7) CKD (chronic kidney disease): Status: Acute (8) Diabetes: Status: Acute (9) Bilateral pneumonia: Status: Acute (10) Delirium: Status: Acute Plan Plan is to maintain the sedation and and the maintenance support of the of the ventilator and because of the initial elevated lactate level which I believe to be nonseptic in origin but instead due to cocaine toxicity but will follow to make sure that renal insufficiency as well as lactic acidemia resolved
--- NOTE | 2022-04-19 14:51 | P.PCNCC_ITS ---
Procedures Date of Service Date of Service: 04/19/22 Intubation Intubation Comments: Patient with extremely agitated delirium with 6 people trying to control her with clear-cut polysubstance abuse encephalopathic primarily from cocaine required sedation after which airway protection but that required intubation with a 7.5 ET tube without complication done under glide scope guidance visualized crossing the vocal cords excellent end-tidal CO2 response and good b ilateral breath sounds no evidence of any foreign material in the pharynx clearly no aspiration no complication Consent for Procedure: Emergent-no informed consent obtained Time out performed: Yes Sedative: propofol Paralytic: rocuronium Laryngoscope: fiber optic video scope ET tube size: 7.5 ET tube uncuffed: No Tube secured depth (cm): 23 Tube secured location: lips Tube placement confirmation: visualized tube passing through cords, equal breath sounds bilaterally, no breath sounds over epigastrium and confirmation by capnometry Patient tolerated procedure: well and no complications Intubation complications: none
--- NOTE | 2022-04-19 14:56 | PC.NURSE ---
Late Entry: ICU extension course counselor at bedside for intubating, secondary to AMS and airway protection concerns. Proprofol 100mg IVP, Proprofol (1000mg/100ml) Gtt pulled from pyxis along with 50mg CONCHIS, for facilitation of intubating. Weight confirmed via bed scale at 1410: 65.2kg. Confirmed w/ Dr. Limon to start Proprofol gtt s/p intubation at this weight. Primary nurse to change in chart. 1415: 40mg of prop pushed, pt repositioned in bed for provider, flushed 1417: 30 mg of Prop pushed, flushed with 10 mls w/o effect 1419: 30mg of Prop pushed, flushed, w good effect. 1420: 40mg of Conchis pushed flushed for facilitation of intubation. 1425: 7.5 ett marked 23 at lips placed by ICU provider, +etco2 and +color change noted. OGT placed at this time. Verbal order for temp sense Babb given. 1427: Proprofol gtt started at this time. Per verbal order of ICU extension course counselor, Pt to be started at max dose of 50mc/kg/min, secondary to CPOT of 7pts prior to intubation, a RASS Score of +3 prior to intubation, and concerns for the patient to lie still during imaging. 1435: 4mg VERSED IVP was administered as pt was transferred from bedside vent to parapac/transport vent for CT imaging. Information conveyed to primary RN.
[2022-04-19 14:59] LABS: Acetaminophen LAB < 1 mcg/mL (<30); Salicylate < 5.0 mg/dL (15-30); Total Protein 8.5 g/dL (6.5-8.0)
[2022-04-19 15:21] LABS: Osmolality, Serum 297 mosm/kg (281-305)
[2022-04-19 15:27] LABS: Reflex Lactate? Lactic Acid Added
[2022-04-19] MEDS: cefTRIAXone sodium 1 GM in 0.9 % Sodium Chloride 50 ML IV (15:41)
[2022-04-19] MEDS: propofoL 200 MG/20 ML VIAL 100 MG IVPUSH (15:42)
[2022-04-19] MEDS: Magnesium Sulfate/H2O 2 GM/50 ML PIGGYBACK IV (15:51)
[2022-04-19] MEDS: KCl 20 mEq in 0.45% Sod 20 MEQ/1,000 ML IV.SOLN 80 MEQ IVCONT (15:55)
[2022-04-19 16:03] LABS: ~Lactic Acid-LAB USE ONLY 1.4 mmol/L (0.5-2.0)
[2022-04-19] MEDS: Azithromycin 500 MG in 0.9 % Sodium Chloride 250 ML 125 MG IV (16:05)
[2022-04-19] MEDS: Midazolam HCl/PF 2 MG/2 ML VIAL 3 MG IVPUSH (16:15)
[2022-04-19] MEDS: Midazolam HCl/NS 50 MG/50 ML PLAST..BAG IVCONT ×2 (16:37→23:59)
--- NOTE | 2022-04-19 16:53 | PC.NURSE ---
RT AT BEDSIDE FOR REPOSITIONING OF ETT TO 23 CMS AT THE LIP. PT CONTINUES IN SOFT RESTRAINTS, INADEQUATELTY SEDATED WITH THRASHING LEG MOVEMENTS, DESPITE VERSED PUSH, GTT AND PROPOFOL GTT AT MAX DOSE. [employer] CONTACTED WITH UPDATED. PRECEDEX ORDERED.
--- NOTE | 2022-04-19 17:05 | PHA.MEDREC ---
Pharmacy Consult ? Medication Reconciliation Pharmacy has completed the medication reconciliation. Patient is intubated at time of note. When going to perform med rec, no family were at bed side. Called patient's daughter Anita ([phone]), but phone is out of service. Called pharmacy and based med list off of pharmacy records/claims history.
[2022-04-19] MEDS: propofoL 1,000 MG/100 ML VIAL 23.13 MG IVCONT ×2 (18:26→23:15)
[2022-04-19] MEDS: Chlorhexidine Gluc Oral Rinse 15 ML MOUTHWASH BUCCAL (23:16)
[2022-04-20] VITALS (32 sets, daily range): BP systolic 83–171; BP diastolic 41–88; PULSE 52–95; RESP 14–23; TEMP 35–36.7; O2SAT 88–100
[2022-04-20 00:06] LABS: MANUAL DIFF FLAG NO
[2022-04-20 00:11] LABS: Basophils Absolute Auto 0.1 X10*3/uL (0.0-0.2); Basophils Percent Auto 0.4 % (0-2); Eosinophils Absolute Auto 0.1 X10*3/uL (0.0-0.4); Eosinophils Percent Auto 0.9 % (0-4); Hematocrit 29.2 % (37.0-47.0); Hemoglobin 9.7 g/dl (12.0-16.0); Imm Gran Abs Auto 0.07 X10*3/uL (0.00-0.03); Imm Gran Pct Auto 0.5 % (0.0-0.4); Lymphocytes Absolute Auto 2.9 X10*3/uL (1.2-4.9); Lymphocytes Percent Auto 22.5 % (20-40); Mean Corpuscular HGB Conc 33.2 g/dl (31.0-35.0); Mean Corpuscular Hemoglobin 28.9 pg (27.0-33.0); Mean Corpuscular Volume 86.9 fL (80.0-98.0); Mean Platelet Volume 9.9 fL (9.4-12.3); Monocytes Absolute Auto 0.7 X10*3/uL (0.1-1.2); Monocytes Percent Auto 5.5 % (2-11); Neutrophils Absolute Auto 9.1 x10*3/uL (2.0-8.3); Neutrophils Percent Auto 70.2 % (45-73); Platelet Count 415 X10*3/uL (160-400); Red Blood Count 3.36 X10*6/uL (4.20-5.50); Red Cell Distribution Width 13.4 % (11.0-16.0)
[2022-04-20 00:17] LABS: VBG Base Excess -2.7 mmol/L; VBG HCO3 18 mmol/L (22-26); VBG pCO2 24 mmHg; VBG pH 7.49 (7.32-7.43); VBG pO2 65 mmHg
[2022-04-20 00:17] LABS: Venous Blood Gas Refer to POC result
[2022-04-20 00:33] LABS: Alanine Aminotransferase 14 U/L (0-31); Albumin Level 3.3 g/dL (3.5-5.0); Alkaline Phosphatase 107 U/L (39-117); Anion Gap 17 (12-20); Aspartate Amino Transferase 44 U/L (5-31); Bilirubin Total 0.2 mg/dL (0.0-1.0); Blood Urea Nitrogen 27 mg/dL (9-16); Calcium 8.7 mg/dL (8.4-10.2); Carbon Dioxide 19 mmol/L (22-29); Chloride 105 mmol/L (96-108); Creatinine Clr Calc Pharmacy 42.5; Estimated Glomerular Filt Rate 43; Glucose Random 81 mg/dL (60-115); Magnesium 1.8 mg/dL (1.6-2.6); Potassium 4.3 mmol/L (3.3-5.1); Sodium 137 mmol/L (135-145)
[2022-04-20 02:14] LABS: INTERNATIONAL NORM RATIO 1.1 (0.9-1.1); Prothrombin Time 12.8 SEC (10.0-13.1)
[2022-04-20 02:16] LABS: Partial Thromboplastin Time 34.8 SEC (26.0-36.4)
[2022-04-20 02:27] LABS: Troponin-I High Sensitivity 4.5 ng/L (<3.5-17.0)
[2022-04-20 02:28] LABS: Lactate Dehydrogenase 280 U/L (122-220)
[2022-04-20] MEDS: propofoL 1,000 MG/100 ML VIAL 13.88 MG IVCONT ×2 (03:04→18:12)
[2022-04-20] MEDS: 0.9 % Sodium Chloride 1,000 ML 999 ML IV (03:15)
[2022-04-20] MEDS: KCl 20 mEq in 0.45% Sod 20 MEQ/1,000 ML IV.SOLN 80 MEQ IVCONT ×2 (04:22→15:02)
[2022-04-20] MEDS: Pantoprazole Sodium 40 MG/10 ML VIAL IVPUSH (05:36)
[2022-04-20] MEDS: Chlorhexidine Gluc Oral Rinse 15 ML MOUTHWASH BUCCAL ×3 (05:43→20:43)
--- NOTE | 2022-04-20 06:21 | PC.NURSE ---
pt remains on vent on prop and versed with good effect. episode of low bp md made aware 1L bolus given with good effect. UO 20-30 all shift. md made aware. daughter updated via phone.
[2022-04-20 07:42] LABS: MANUAL DIFF FLAG NO
[2022-04-20 07:45] LABS: Venous Blood Gas Refer to POC result
[2022-04-20 07:50] LABS: Basophils Absolute Auto 0.1 X10*3/uL (0.0-0.2); Basophils Percent Auto 0.6 % (0-2); Eosinophils Absolute Auto 0.2 X10*3/uL (0.0-0.4); Eosinophils Percent Auto 1.8 % (0-4); Hematocrit 26.1 % (37.0-47.0); Hemoglobin 8.4 g/dl (12.0-16.0); Imm Gran Abs Auto 0.08 X10*3/uL (0.00-0.03); Imm Gran Pct Auto 0.8 % (0.0-0.4); Lymphocytes Absolute Auto 3.4 X10*3/uL (1.2-4.9); Lymphocytes Percent Auto 31.6 % (20-40); Mean Corpuscular HGB Conc 32.2 g/dl (31.0-35.0); Monocytes Absolute Auto 0.7 X10*3/uL (0.1-1.2); Monocytes Percent Auto 6.6 % (2-11); Neutrophils Absolute Auto 6.2 x10*3/uL (2.0-8.3); Neutrophils Percent Auto 58.6 % (45-73); Platelet Count 351 X10*3/uL (160-400); Red Cell Distribution Width 13.6 % (11.0-16.0); White Blood Count 10.6 X10*3/uL (4.8-10.8)
[2022-04-20 07:54] LABS: VBG HCO3 17 mmol/L (22-26); VBG pCO2 18 mmHg; VBG pO2 206 mmHg
[2022-04-20] MEDS: Midazolam HCl/NS 50 MG/50 ML PLAST..BAG IVCONT ×2 (08:10→16:38)
[2022-04-20 08:15] LABS: Anion Gap 15 (12-20); Blood Urea Nitrogen 24 mg/dL (9-16); Calcium 8.4 mg/dL (8.4-10.2); Carbon Dioxide 18 mmol/L (22-29); Chloride 106 mmol/L (96-108); Creatinine Clr Calc Pharmacy 51.8; Estimated Glomerular Filt Rate 54; Glucose Random 71 mg/dL (60-115); Potassium 4.2 mmol/L (3.3-5.1); Sodium 135 mmol/L (135-145)
[2022-04-20] MEDS: propofoL 1,000 MG/100 ML VIAL 9.25 MG IVCONT (10:40)
--- NOTE | 2022-04-20 16:31 | PM.CCPN ---
Subjective Subjective Date of Service: 04/20/22 Interval History: 56-year-old female with history of polysubstance abuse came in with agitated delirium found naked banging her head against the floor at home with the and multiple for frontal scalp hematoma is but a subdural hematoma which was very small with no mass effect and tested positive for her usual cocktail of cocaine and opiates and fentanyl and required significant sedation because of this self-harm and of course trying to harm everyone else around her and then required for airway protection intubation brought over here on propofol and Versed drips and has been doing very well since did also have evidence of rhabdomyolysis and also had evidence of right and left lung infiltrates little hard to qualify which could be part and parcel of the cocaine but could not rule out in their distribution possibility of aspiration currently saturations are 93% on an FiO2 of 40% with low minutes ventilatory requirement in sinus rhythm at [address]-T changes and without troponin positivity pressure is 130/70 doing very well Critical Care Time (minutes): 45 Physical Exam Vital Signs: Vital Signs: Last Vital Signs Temp 97.5 F 04/20/22 16:00 Pulse 60 04/20/22 16:00 Resp 14 04/20/22 16:00 BP 132/68 04/20/22 16:00 Pulse Ox 88 L 04/20/22 16:00 O2 Del Method 04/20/22 16:00 FiO2 30 04/20/22 16:00 BMI result Body Mass Index 24.6 Neurologically is intact but sedated intubated Bedside echo shows globally normal systolic wall motion of LV and RV with no primary valve or pericardial disease Lungs without adventitious sounds Abdomen benign with no again a megaly Skin is intact Objective Data Labs CBC & Chem 7: 04/20/22 07:32 04/20/22 07:32 Labs: Laboratory Results - last 24 hr 04/20/22 04/20/22 04/20/22 00:01 00:01 00:06 WBC 13.0 H RBC 3.36 L Hgb 9.7 L Hct 29.2 L D MCV 86.9 MCH 28.9 MCHC 33.2 RDW 13.4 Plt Count 415 H MPV 9.9 Immature Gran % (Auto) 0.5 H Neut % (Auto) 70.2 Lymph % (Auto) 22.5 [place] % (Auto) 5.5 Eos % (Auto) 0.9 Baso % (Auto) 0.4 Lymph # (Auto) 2.9 [place] # (Auto) 0.7 Eos # (Auto) 0.1 Baso # (Auto) 0.1 Abs Immat Gran (auto) 0.07 H Absolute Neuts (auto) 9.1 H Absolute Nucleated RBC 0.000 Nucleated RBC % (auto) 0.0 PT INR APTT VBG pH 7.49 H VBG pCO2 24 VBG pO2 65 VBG HCO3 18 L VBG O2 Saturation 92.0 VBG Base Excess -2.7 Sodium 137 Potassium 4.3 Chloride 105 Carbon Dioxide 19 L Anion Gap 17 BUN 27 H Creatinine 1.29 Estim Creat Clear Calc 42.5 Estimated GFR 43 Random Glucose 81 Calcium 8.7 D Magnesium 1.8 Total Bilirubin 0.2 AST 44 H ALT 14 Alkaline Phosphatase 107 D Lactate Dehydrogenase Total Creatine Kinase Troponin I High Sens Total Protein 7.0 Albumin 3.3 L 04/20/22 04/20/22 04/20/22 01:53 01:53 01:53 WBC RBC Hgb Hct MCV MCH MCHC RDW Plt Count MPV Immature Gran % (Auto) Neut % (Auto) Lymph % (Auto) [place] % (Auto) Eos % (Auto) Baso % (Auto) Lymph # (Auto) [place] # (Auto) Eos # (Auto) Baso # (Auto) Abs Immat Gran (auto) Absolute Neuts (auto) Absolute Nucleated RBC Nucleated RBC % (auto) PT 12.8 INR 1.1 APTT 34.8 VBG pH VBG pCO2 VBG pO2 VBG HCO3 VBG O2 Saturation VBG Base Excess Sodium Potassium Chloride Carbon Dioxide Anion Gap BUN Creatinine Estim Creat Clear Calc Estimated GFR Random Glucose Calcium Magnesium Total Bilirubin AST ALT Alkaline Phosphatase Lactate Dehydrogenase 280 H Total Creatine Kinase 4530 H D Troponin I High Sens 4.5 Total Protein Albumin 04/20/22 04/20/22 04/20/22 07:32 07:32 07:41 WBC 10.6 RBC 3.00 L Hgb 8.4 L Hct 26.1 L MCV 87.0 MCH 28.0 MCHC 32.2 RDW 13.6 Plt Count 351 MPV 10.0 Immature Gran % (Auto) 0.8 H Neut % (Auto) 58.6 Lymph % (Auto) 31.6 [place] % (Auto) 6.6 Eos % (Auto) 1.8 Baso % (Auto) 0.6 Lymph # (Auto) 3.4 [place] # (Auto) 0.7 Eos # (Auto) 0.2 Baso # (Auto) 0.1 Abs Immat Gran (auto) 0.08 H Absolute Neuts (auto) 6.2 Absolute Nucleated RBC 0.000 Nucleated RBC % (auto) 0.0 PT INR APTT VBG pH 7.60 H* VBG pCO2 18 VBG pO2 206 VBG HCO3 17 L VBG O2 Saturation 99.0 VBG Base Excess -2.0 Sodium 135 Potassium 4.2 Chloride 106 Carbon Dioxide 18 L Anion Gap 15 BUN 24 H Creatinine 1.06 Estim Creat Clear Calc 51.8 Estimated GFR 54 Random Glucose 71 Calcium 8.4 Magnesium Total Bilirubin AST ALT Alkaline Phosphatase Lactate Dehydrogenase Total Creatine Kinase Troponin I High Sens Total Protein Albumin Microbiology Microbiology Results: Microbiology 04/19/22 13:21 Blood - Venous Blood Culture - Preliminary No growth after 24 hours. 04/19/22 13:21 Blood - Venous Blood Culture - Preliminary No growth after 24 hours. 04/19/22 15:32 Sputum - Suctioned Gram Stain - Final 04/19/22 15:32 Sputum - Suctioned Routine Culture - Preliminary Culture in progress. Progress Note: A&P Assessment and plan (1) Delirium: Status: Acute (2) Bilateral pneumonia: Status: Acute (3) Toxic metabolic encephalopathy: Status: Acute (4) Drug overdose: Status: Acute (5) Rhabdomyolysis: Status: Acute (6) Acute encephalopathy: Status: Acute (7) Polysubstance abuse: Status: Acute (8) Lactic acidosis: Status: Acute (9) Acute respiratory alkalosis: Status: Acute (10) CKD (chronic kidney disease): Status: Acute (11) Diabetes: Status: Acute Plan So the plan is to begin of for sedation by stopping the propofol and observing while on Versed and if cognitive function is restored I think we can rapidly wean the ventilator but if still apparently delirious simply recent date and wait another 24 hours Quality Stroke Does the patient have a stroke diagnosis?: No VTE Prior VTE?: No VTE Risk Level:: Medical - moderate - high VTE Device Contraindication: N/A - Device Ordered VTE Drug Contraindication: Treatment Not Indicated
[2022-04-20 16:57] LABS: B Type Natriuretic Peptide 24 pg/mL (<100)
[2022-04-21] VITALS (30 sets, daily range): BP systolic 91–188; BP diastolic 46–103; PULSE 54–98; RESP 14–21; TEMP 34.7–37.1; O2SAT 90–99; BMI 24.3
[2022-04-21] MEDS: propofoL 1,000 MG/100 ML VIAL 18.51 MG IVCONT (00:53)
[2022-04-21] MEDS: Midazolam HCl/NS 50 MG/50 ML PLAST..BAG IVCONT ×3 (00:55→21:59)
[2022-04-21] MEDS: KCl 20 mEq in 0.45% Sod 20 MEQ/1,000 ML IV.SOLN 80 MEQ IVCONT (02:18)
[2022-04-21 04:18] LABS: MANUAL DIFF FLAG NO
[2022-04-21 04:23] LABS: VBG Base Excess -6.3 mmol/L; VBG HCO3 17 mmol/L (22-26); VBG pCO2 27 mmHg; VBG pO2 52 mmHg
[2022-04-21 04:28] LABS: Basophils Absolute Auto 0.1 X10*3/uL (0.0-0.2); Basophils Percent Auto 0.7 % (0-2); Eosinophils Absolute Auto 0.2 X10*3/uL (0.0-0.4); Eosinophils Percent Auto 2.6 % (0-4); Hematocrit 30.1 % (37.0-47.0); Hemoglobin 9.5 g/dl (12.0-16.0); Imm Gran Abs Auto 0.06 X10*3/uL (0.00-0.03); Imm Gran Pct Auto 0.7 % (0.0-0.4); Lymphocytes Absolute Auto 2.8 X10*3/uL (1.2-4.9); Lymphocytes Percent Auto 31.4 % (20-40); Mean Corpuscular HGB Conc 31.6 g/dl (31.0-35.0); Mean Corpuscular Hemoglobin 28.4 pg (27.0-33.0); Mean Corpuscular Volume 89.9 fL (80.0-98.0); Monocytes Absolute Auto 0.6 X10*3/uL (0.1-1.2); Monocytes Percent Auto 7.1 % (2-11); Neutrophils Absolute Auto 5.2 x10*3/uL (2.0-8.3); Neutrophils Percent Auto 57.5 % (45-73); Platelet Count 374 X10*3/uL (160-400); Red Blood Count 3.35 X10*6/uL (4.20-5.50); Red Cell Distribution Width 13.8 % (11.0-16.0)
[2022-04-21 04:47] LABS: Alanine Aminotransferase 14 U/L (0-31); Albumin Level 3.2 g/dL (3.5-5.0); Alkaline Phosphatase 98 U/L (39-117); Anion Gap 18 (12-20); Aspartate Amino Transferase 34 U/L (5-31); Bilirubin Total 0.2 mg/dL (0.0-1.0); Blood Urea Nitrogen 14 mg/dL (9-16); Calcium 9.1 mg/dL (8.4-10.2); Carbon Dioxide 18 mmol/L (22-29); Chloride 108 mmol/L (96-108); Creatinine Clr Calc Pharmacy 66.1; Estimated Glomerular Filt Rate > 60; Glucose Random 62 mg/dL (60-115); Potassium 4.5 mmol/L (3.3-5.1); Sodium 139 mmol/L (135-145); Total Protein 6.8 g/dL (6.5-8.0)
[2022-04-21 04:54] LABS: Venous Blood Gas Refer to POC result
[2022-04-21] MEDS: propofoL 1,000 MG/100 ML VIAL 23.13 MG IVCONT ×4 (06:18→23:15)
[2022-04-21] MEDS: Pantoprazole Sodium 40 MG/10 ML VIAL IVPUSH (06:21)
[2022-04-21] MEDS: Chlorhexidine Gluc Oral Rinse 15 ML MOUTHWASH BUCCAL ×3 (07:35→21:59)
[2022-04-21 08:16] LABS: Glucose, Whole Blood 68 mg/dL (60-115)
[2022-04-21] MEDS: Heparin Sodium,Porcine 5,000 UNIT/ML VIAL 5000 UNIT SUBCUT ×2 (08:44→16:20)
--- NOTE | 2022-04-21 09:43 | HE.PHANOTE ---
RE METHADONE LOCATION: [facility] LAST TAKEN: 04/17 WITH THREE TAKE HOME BOTTLES DOSE: 107 MG' NESTOR
--- NOTE | 2022-04-21 10:43 | MHC.CLN ---
PT IS INTUBATED AND SEDATED RECOMMEND GLUCERNA TF AT MAX GOAL RATE 40ML/HR WITH 30ML PROSOURCE BID AND 240ML Q 8HRS TO PROVIDE 1080KCALS (1691KCALS WITH SEDATION; 26KCALS/KG), 70G TOTAL PROTEIN (1.09G/KG), 1539ML TOTAL WATER FROM FORMULA AND FLUSHES (24ML/KG) MONITOR TOLERANCE, RESIDUALS AND LYTES SEE ALSO FULL CLINICAL NUTRITION ASSESSMENT
[2022-04-21] MEDS: methADONE HCl 20 MG/2 ML ORAL.CONC 107 MG PO (11:05)
--- NOTE | 2022-04-21 11:20 | P.PNCC_ITS ---
Subjective Subjective Date of Service: 04/21/22 Interval History: 56-year-old lady with underlying history of polysubstance abuse admitted on 04/19/2022 with acute delirium requiring intubation and ventilatory support for high-dose sedative drips, further complicated by acute kidney injury and rhabdomyolysis. No events overnight. Critical Care Time (minutes): 45 Physical Exam Vital Signs: Vital Signs: Last Vital Signs Temp 98.1 F 04/21/22 10:00 Pulse 88 04/21/22 11:00 Resp 14 04/21/22 11:00 BP 95/53 L 04/21/22 11:00 Pulse Ox 98 04/21/22 11:00 O2 Del Method 04/21/22 11:00 FiO2 30 04/21/22 11:00 BMI result Body Mass Index 24.3 Const: General: no acute distress and other ( Sedated on the vent) Eyes: Sclerae: sclerae normal EOM: EOMs intact bilaterally Neck: Neck: Yes no lymphadenopathy, Yes trachea midline and Yes supple Resp: Auscultation: clear to auscultation bilaterally Cardio: Rate: regular rate Rhythm: regular rhythm Heart sounds: no gallops, no murmurs and no rubs GI: Palpation (GI): Soft to palpation and Other GI palpation findings present ( Nontender) Auscultation: normal bowel sounds Extrem: General: Yes no pedal edema, No clubbing and No cyanosis Objective Data Labs CBC & Chem 7: 04/21/22 04:05 04/21/22 04:05 Labs: Laboratory Results - last 24 hr 04/20/22 04/21/22 04/21/22 16:31 04:05 04:05 WBC 9.0 RBC 3.35 L Hgb 9.5 L Hct 30.1 L MCV 89.9 MCH 28.4 MCHC 31.6 RDW 13.8 Plt Count 374 MPV 10.0 Immature Gran % (Auto) 0.7 H Neut % (Auto) 57.5 Lymph % (Auto) 31.4 [place] % (Auto) 7.1 Eos % (Auto) 2.6 Baso % (Auto) 0.7 Lymph # (Auto) 2.8 [place] # (Auto) 0.6 Eos # (Auto) 0.2 Baso # (Auto) 0.1 Abs Immat Gran (auto) 0.06 H Absolute Neuts (auto) 5.2 Absolute Nucleated RBC 0.000 Nucleated RBC % (auto) 0.0 VBG pH VBG pCO2 VBG pO2 VBG HCO3 VBG O2 Saturation VBG Base Excess Sodium 139 Potassium 4.5 Chloride 108 Carbon Dioxide 18 L Anion Gap 18 BUN 14 Creatinine 0.83 Estim Creat Clear Calc 66.1 Estimated GFR > 60 POC Glucose Random Glucose 62 Calcium 9.1 D Total Bilirubin 0.2 AST 34 H ALT 14 Alkaline Phosphatase 98 Total Creatine Kinase 1900 H D B-Natriuretic Peptide 24 Total Protein 6.8 Albumin 3.2 L 04/21/22 04/21/22 04:16 08:13 WBC RBC Hgb Hct MCV MCH MCHC RDW Plt Count MPV Immature Gran % (Auto) Neut % (Auto) Lymph % (Auto) [place] % (Auto) Eos % (Auto) Baso % (Auto) Lymph # (Auto) [place] # (Auto) Eos # (Auto) Baso # (Auto) Abs Immat Gran (auto) Absolute Neuts (auto) Absolute Nucleated RBC Nucleated RBC % (auto) VBG pH 7.40 VBG pCO2 27 VBG pO2 52 VBG HCO3 17 L VBG O2 Saturation 80.0 VBG Base Excess -6.3 Sodium Potassium Chloride Carbon Dioxide Anion Gap BUN Creatinine Estim Creat Clear Calc Estimated GFR POC Glucose 68 Random Glucose Calcium Total Bilirubin AST ALT Alkaline Phosphatase Total Creatine Kinase B-Natriuretic Peptide Total Protein Albumin Microbiology Microbiology Results: Microbiology 04/19/22 15:32 Sputum - Suctioned Gram Stain - Final 04/19/22 15:32 Sputum - Suctioned Routine Culture - Final 04/19/22 13:21 Blood - Venous Blood Culture - Preliminary No growth after 24 hours. 04/19/22 13:21 Blood - Venous Blood Culture - Preliminary No growth after 24 hours. Progress Note: A&P Assessment and plan (1) Delirium: Status: Acute (2) Polysubstance abuse: Status: Acute (3) Toxic metabolic encephalopathy: Status: Acute (4) Acute respiratory failure: Status: Acute (5) Rhabdomyolysis: Status: Acute (6) Acute kidney injury: Status: Acute Plan Assessment: 56-year-old lady with underlying history of polysubstance abuse admitted with toxic metabolic encephalopathy, acute respiratory failure, acute kidney injury, and rhabdomyolysis. Plan: Neuro: Toxic metabolic encephalopathy likely secondary to polysubstance abuse and/of withdrawal. Continue to titrate of high-dose sedative drips as tolerated. Restarted on methadone. Cardiac: No acute issues. Pulmonary: Acute respiratory failure requiring ventilatory support, continue to titrate off as tolerated. Renal: Acute kidney injury and rhabdomyolysis, improved. Continue to monitor renal indices and urine output. Endo: No acute issues. GI: No acute issues. ID: No acute issues Heme/Onc: No acute issues. Psych: No acute issues. Miscellaneous: No acute issues. Prophylaxis: Heparin, ppi Diet: tube feeds Critical care time spent: 45 minutes Quality Stroke Does the patient have a stroke diagnosis?: No VTE Prior VTE?: No VTE Risk Level:: Medical - moderate - high VTE Device Contraindication: N/A - Device Ordered VTE Drug Contraindication: Treatment Not Indicated
--- NOTE | 2022-04-21 14:03 | P.CDIC_ITS ---
CDI Concurrent Query Documentation Clarification: PHYSICIAN'S DOCUMENTATION REQUEST Date of Query: 04/21/22 9552 Patient Name: Blank Rosas I Admit Date: 04/19/22 Dear Doctor, A review of the medical record indicates additional documentation may be needed. Please review below and update the documentation accordingly. Clinical Indicators: Is there further specificity regarding this patient's renal status that correlates with the findings below: Risk Factors/Clinical Indicators/Treatments -Per ER note on 04/19: CKD at her baseline with BUN/Cr 36/2.09 (51/1.84 in Mar) -LABS: GFR on admission 04/19: 25 GFR on 04/21: >60 Please clarify which of the following accurately represents the patient's renal status: * CKD, please provide stage - see criteria * Other (please specify) * Unable to determine Stages of Chronic Kidney Disease* Level Description GFR G1 Normal or High > 90 G2 Mildly decreased 60 ? 89 G3a Mildly to moderately decreased 45 ? 59 G3b Moderately to severely decreased 30 - 44 G4 Severely decreased 15 ? 29 G5 Kidney failure < 15 *Source: Kidney Disease: Improving Global Outcomes (KDIGO) 2012 Use of terms such as suspected, likely, concern for, or probable (associated with a specific diagnosis that is being evaluated, monitored, or treated as if it exists) are acceptable and can be coded in the inpatient setting, when documented at the time of discharge. Thank you, Alexus Hua MS, RN, CCRN Extension: [phone] Please use your independent medical judgment in providing your response. THIS QUERY IS PART OF THE PERMANENT MEDICAL RECORD Provider Response: CKD Stage 4
[2022-04-21] MEDS: propofoL 1,000 MG/100 ML VIAL 16.19 MG IVCONT (14:55)
--- NOTE | 2022-04-21 15:24 | MHC.CM.PN ---
Pt presently intubated and unable to participate in CM assessment. Information obtained from EMR and conversation w/pt's spouse, Nathan. 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 Anthan suggests waiting until pt can provide information as he is not sure on above. Pt does not have a HCP - PCP is Dr. Villanueva. Nathan to transport pt to home. CM to follow for finalization of d/c plan.
--- NOTE | 2022-04-21 17:43 | PC.NURSE ---
MD informed pt takes methadone at home, pharmacy was informed and methadone was administered as ordered. Attempted to wean down sedation per MD verbal order. Pt awoke in the afternoon agitated and noncompliant with vent. Sedation titrated up for vent compliance and pt safety. TF started, pt tolerating. water bolus and prosource administered as ordered. family at bedside, updated by MD. chavez d/c'ed per md verbal order and purewick was placed. pt did not void this shift, bladder scanned was performed and found 564ml. md informed, pt straight cath'ed as ordered.
[2022-04-22] VITALS (40 sets, daily range): BP systolic 77–188; BP diastolic 47–86; PULSE 53–113; RESP 12–20; TEMP 35–37.5; O2SAT 91–100; BMI 24.5
[2022-04-22] MEDS: Heparin Sodium,Porcine 5,000 UNIT/ML VIAL 5000 UNIT SUBCUT ×3 (00:34→16:44)
[2022-04-22] MEDS: Albumin Human 25 % 100 ML IV (02:43)
[2022-04-22] MEDS: Lactated Ringers 1,000 ML 999 ML IV (02:43)
[2022-04-22] MEDS: propofoL 1,000 MG/100 ML VIAL 23.13 MG IVCONT ×6 (03:46→22:05)
[2022-04-22 05:29] LABS: VBG HCO3 18 mmol/L (22-26); VBG pCO2 28 mmHg; VBG pH 7.41 (7.32-7.43); VBG pO2 53 mmHg
[2022-04-22 05:41] LABS: MANUAL DIFF FLAG NO
[2022-04-22 05:46] LABS: Basophils Absolute Auto 0.1 X10*3/uL (0.0-0.2); Basophils Percent Auto 0.6 % (0-2); Eosinophils Absolute Auto 0.3 X10*3/uL (0.0-0.4); Eosinophils Percent Auto 3.4 % (0-4); Hematocrit 28.5 % (37.0-47.0); Hemoglobin 9.6 g/dl (12.0-16.0); Imm Gran Abs Auto 0.09 X10*3/uL (0.00-0.03); Imm Gran Pct Auto 1.1 % (0.0-0.4); Lymphocytes Absolute Auto 2.7 X10*3/uL (1.2-4.9); Lymphocytes Percent Auto 32.2 % (20-40); Mean Corpuscular HGB Conc 33.7 g/dl (31.0-35.0); Mean Corpuscular Hemoglobin 30.1 pg (27.0-33.0); Mean Corpuscular Volume 89.3 fL (80.0-98.0); Mean Platelet Volume 10.2 fL (9.4-12.3); Monocytes Absolute Auto 0.6 X10*3/uL (0.1-1.2); Monocytes Percent Auto 7.2 % (2-11); Neutrophils Absolute Auto 4.6 x10*3/uL (2.0-8.3); Neutrophils Percent Auto 55.5 % (45-73); Platelet Count 371 X10*3/uL (160-400); Red Blood Count 3.19 X10*6/uL (4.20-5.50); Red Cell Distribution Width 13.8 % (11.0-16.0); White Blood Count 8.4 X10*3/uL (4.8-10.8)
[2022-04-22 06:23] LABS: Alanine Aminotransferase 11 U/L (0-31); Albumin Level 3.5 g/dL (3.5-5.0); Alkaline Phosphatase 96 U/L (39-117); Anion Gap 18 (12-20); Aspartate Amino Transferase 25 U/L (5-31); Bilirubin Total 0.2 mg/dL (0.0-1.0); Blood Urea Nitrogen 17 mg/dL (9-16); Carbon Dioxide 18 mmol/L (22-29); Chloride 104 mmol/L (96-108); Creatinine Clr Calc Pharmacy 65.3; Estimated Glomerular Filt Rate > 60; Glucose Random 110 mg/dL (60-115); Magnesium 1.2 mg/dL (1.6-2.6); Phosphorus 4.5 mg/dL (2.7-4.5); Potassium 4.1 mmol/L (3.3-5.1); Sodium 136 mmol/L (135-145); Total Protein 7.5 g/dL (6.5-8.0)
[2022-04-22] MEDS: Chlorhexidine Gluc Oral Rinse 15 ML MOUTHWASH BUCCAL ×3 (06:35→23:33)
[2022-04-22] MEDS: Pantoprazole Sodium 40 MG/10 ML VIAL IVPUSH (06:36)
[2022-04-22 06:40] LABS: Venous Blood Gas Refer to POC result
--- NOTE | 2022-04-22 07:00 | MHC.PIE ---
Shift eval 7p-7a - Patient tolerating vent with versed & propofol. Vitals stable, map >65. Patient intermit gets restless, needing to keep patient maxed on propofol. Patient retaining urine (chavez removed on prev shift) - bladder scanned at 2200 for 347ml, then again at 0200 for 327ml. Siddharth CRUZ made aware - order to give LR bolus & albumin. Rescanned patient at 5am for >999ml - order to straight cath, 900ml urine ouput from straight cath - Siddharth CRUZ updated.
--- NOTE | 2022-04-22 07:17 | MHC.PIE ---
Shift eval 7p-7a: Patient remains on vent, sedated w/ propofol. Patient on Vaso - addressed med w/ provider - Siddharth CRUZ ordered to hold vaso & start levo for a map of 60. See MAR for levo titration.?Patient tolerated vent settings with propofol - patient does not tolerate laying flat - O2sat 80's, but recovers within minutes. Respiratory at bedside during episodes, patient coughing, in-line suctioned for minimal blood streaked secretions, scabs noted on lips, bruising on upper extremities & right abd. Siddharth COMMISSIONED FIRE OFFICER aware. Critical Hb 6.9 received from morning labs - Siddharth CRUZ made aware - held next dose of lovenox. T&S ordered. Patient had 4 BM's, brown, semi-formed, no blood noted in stool. Full bed change & bath given to patient multiple times.
[2022-04-22] MEDS: Midazolam HCl/NS 50 MG/50 ML PLAST..BAG IVCONT ×2 (07:35→17:56)
[2022-04-22] MEDS: Magnesium Sulfate/H2O 2 GM/50 ML PIGGYBACK IV (07:43)
[2022-04-22] MEDS: methADONE HCl 20 MG/2 ML ORAL.CONC 107 MG PO (09:11)
[2022-04-22] MEDS: dexmedeTOMIDidine HCL/NS 400 MCG/100 ML INFUS..BTL 16.3 MCG IVCONT (09:21)
[2022-04-22] MEDS: Cisatracurium Besylate 20 MG/10 ML VIAL IVPUSH (09:47)
[2022-04-22] MEDS: Cisatracurium Besylate 100 MG in 0.9 % Sodium Chloride 40 ML IVCONT ×2 (10:27→23:26)
--- NOTE | 2022-04-22 11:35 | PM.CCPN ---
Subjective Subjective Date of Service: 04/22/22 Interval History: 56-year-old lady with underlying history of polysubstance abuse admitted on 04/19/2022 with acute delirium and agitation including self-harm (banging head on the floor/bed) requiring intubation and ventilatory support for high-dose sedative drips, further complicated by acute kidney injury and rhabdomyolysis. No events overnight. Critical Care Time (minutes): 45 Physical Exam Vital Signs: Vital Signs: Last Vital Signs Temp 97.8 F 04/22/22 08:00 Pulse 65 04/22/22 11:00 Resp 20 04/22/22 11:00 BP 165/77 H 04/22/22 11:00 Pulse Ox 91 L 04/22/22 11:00 O2 Del Method 04/22/22 11:00 FiO2 30 04/22/22 11:23 BMI result Body Mass Index 24.5 Const: General: no acute distress and other (Sedated on the vent, extremely agitated with sedation vacation) Eyes: Sclerae: sclerae normal EOM: EOMs intact bilaterally Neck: Neck: Yes no lymphadenopathy, Yes trachea midline and Yes supple Resp: Effort & Inspection: normal respiratory effort and no respiratory distress Auscultation: clear to auscultation bilaterally Cardio: Rate: regular rate Rhythm: regular rhythm Heart sounds: no gallops, no murmurs and no rubs GI: Palpation (GI): Soft to palpation and Other GI palpation findings present ( Nontender) Auscultation: normal bowel sounds Extrem: General: Yes no pedal edema, No clubbing and No cyanosis Objective Data Labs CBC & Chem 7: 04/22/22 05:24 04/22/22 05:24 Labs: Laboratory Results - last 24 hr 04/22/22 04/22/22 04/22/22 05:23 05:24 05:24 WBC 8.4 RBC 3.19 L Hgb 9.6 L Hct 28.5 L MCV 89.3 MCH 30.1 MCHC 33.7 RDW 13.8 Plt Count 371 MPV 10.2 Immature Gran % (Auto) 1.1 H Neut % (Auto) 55.5 Lymph % (Auto) 32.2 [place] % (Auto) 7.2 Eos % (Auto) 3.4 Baso % (Auto) 0.6 Lymph # (Auto) 2.7 [place] # (Auto) 0.6 Eos # (Auto) 0.3 Baso # (Auto) 0.1 Abs Immat Gran (auto) 0.09 H Absolute Neuts (auto) 4.6 Absolute Nucleated RBC 0.000 Nucleated RBC % (auto) 0.0 VBG pH 7.41 VBG pCO2 28 VBG pO2 53 VBG HCO3 18 L VBG O2 Saturation 81.0 VBG Base Excess -5.0 Sodium 136 Potassium 4.1 Chloride 104 Carbon Dioxide 18 L Anion Gap 18 BUN 17 H Creatinine 0.84 Estim Creat Clear Calc 65.3 Estimated GFR > 60 Random Glucose 110 Calcium 9.0 Phosphorus 4.5 Magnesium 1.2 L* Total Bilirubin 0.2 AST 25 ALT 11 Alkaline Phosphatase 96 Total Protein 7.5 Albumin 3.5 Microbiology Microbiology Results: Microbiology 04/19/22 13:21 Blood - Venous Blood Culture - Preliminary No growth after 48 hours. 04/19/22 13:21 Blood - Venous Blood Culture - Preliminary No growth after 48 hours. 04/19/22 15:32 Sputum - Suctioned Gram Stain - Final 04/19/22 15:32 Sputum - Suctioned Routine Culture - Final Progress Note: A&P Assessment and plan (1) Acute kidney injury: Status: Acute (2) Acute respiratory failure: Status: Acute (3) Delirium: Status: Acute (4) Toxic metabolic encephalopathy: Status: Acute (5) Rhabdomyolysis: Status: Acute (6) Polysubstance abuse: Status: Acute (7) CKD (chronic kidney disease): Status: Acute (8) Diabetes: Status: Acute Plan Assessment: 56-year-old lady with underlying history of polysubstance abuse admitted with toxic metabolic encephalopathy, acute respiratory failure, acute kidney injury, and rhabdomyolysis. Plan: Neuro: Toxic metabolic encephalopathy likely secondary to polysubstance abuse and/or withdrawal. Small 3 mm subdural on initial CT scan. Still with significant agitation, will obtain brain MRI for further evaluation. Continue to titrate of high-dose sedative drips as tolerated. Restarted on methadone. Cardiac: No acute issues. Pulmonary: Acute respiratory failure requiring ventilatory support, continue to titrate off as tolerated. Renal: Acute kidney injury and rhabdomyolysis, improved. Continue to monitor renal indices and urine output. Endo: No acute issues. GI: No acute issues. ID: No acute issues Heme/Onc: No acute issues. Psych: No acute issues. Miscellaneous: No acute issues. Prophylaxis: Heparin, ppi Diet: tube feeds Critical care time spent: 45 minutes Quality Stroke Does the patient have a stroke diagnosis?: No VTE Prior VTE?: No VTE Risk Level:: Medical - moderate - high VTE Device Contraindication: N/A - Device Ordered VTE Drug Contraindication: Treatment Not Indicated
[2022-04-22] MEDS: dexmedeTOMIDidine HCL/NS 400 MCG/100 ML INFUS..BTL 19.56 MCG IVCONT (13:33)
--- NOTE | 2022-04-22 13:39 | MHC.CM.PN ---
Pt continues intubated and on sedatives for agitative behavior and need for MRI: no plans to start vent weaning at this time. Original d/c plan was to return to home with family support: Placement would be difficult should she require it d/t active substance use history and suboxone needs. CM to follow.
--- NOTE | 2022-04-22 14:47 | P.PCNCC_ITS ---
Procedures Date of Service Date of Service: 04/22/22 Central Line Placement Right IJ: Central Line Comments: Late note for procedure performed on 04/22/2022 at approximately 15:00. Right internal jugular triple-lumen central venous catheter emergently placed for appropriate vascular access under ultrasound guidance and usual sterile conditions with no immediate complications. Line position verified on chest x- ray.
--- NOTE | 2022-04-22 19:15 | PC.NURSE ---
PT agitated and moving at beginning of shift. RT switched vent from AC to PSV setting at 0815. Patient grew in agitation. Precedex started, see EMAR. PSV trail failed and switched to AC setting at 0950. MD prescribed Nimbex 20mg bolus see EMAR. Nimbex drip started at 1030, see EMAR. Babb catheter 16 Gauge inserted due to urinary retention per MD. Patient taken off unit for head MRI from roughly 3960-2872. Pending results. TLC placed in RSC by MD due to occlusions to peripheral IVs and inability to obtain new peripheral IVs at roughly 1430. Tube Feeding held at 1540 While repositioning patient for 1800 ADL patient had severe desaturation, O2 dropped from 99% to 71%. RT called bedside stat and stated increased resistance while bagging patient. PT put on ACVC+ setting rate 14, volume 400, FiO2 50%, peep 5. slight increase in vitals. RT adjusted ACVC+ setting at 1830 to rate 14, volume 400, FiO2 100%, peep 8.
--- NOTE | 2022-04-22 20:25 | MHC.PIE ---
Addendum entered by Bucky Duncan RN 04/22/22 21:24: Levo started for a very short time - Patient responded with extremely high BP's, turned off, see MAR for titration. Unknown baseline TOF amplitude. Assessed TOF at this time - at amplitude of 4, patient TOF 4/4. Siddharth CRUZ made aware of TOF assessment... plan to keep nimbex rate as is based on patient being synchronous with vent, since baseline TOF unknown at this time. Original Note: PB trending to be 79/45 (map 56).... had been in the low 90's systolic. Increased frequency of automatic BP's, to reassess every 10min. Siddharth CRUZ made aware, patient on multiplel meds for sedation, including paralytic. Siddharth CRUZ ordered levophed to be started.
[2022-04-22] MEDS: dexmedeTOMIDidine HCL/NS 400 MCG/100 ML INFUS..BTL 9.78 MCG IVCONT (22:25)
[2022-04-23] VITALS (31 sets, daily range): BP systolic 89–185; BP diastolic 43–86; PULSE 56–86; RESP 11–23; TEMP 34.8–37.7; O2SAT 91–100; BMI 24.3
[2022-04-23] MEDS: Heparin Sodium,Porcine 5,000 UNIT/ML VIAL 5000 UNIT SUBCUT ×3 (00:41→16:47)
[2022-04-23] MEDS: propofoL 1,000 MG/100 ML VIAL 23.13 MG IVCONT ×3 (00:58→08:03)
[2022-04-23] MEDS: Midazolam HCl/NS 50 MG/50 ML PLAST..BAG IVCONT (03:38)
[2022-04-23 05:13] LABS: MANUAL DIFF FLAG NO
[2022-04-23 05:18] LABS: Basophils Absolute Auto 0.1 X10*3/uL (0.0-0.2); Basophils Percent Auto 0.7 % (0-2); Eosinophils Absolute Auto 0.3 X10*3/uL (0.0-0.4); Eosinophils Percent Auto 3.5 % (0-4); Hemoglobin 10.1 g/dl (12.0-16.0); Imm Gran Abs Auto 0.09 X10*3/uL (0.00-0.03); Lymphocytes Absolute Auto 2.6 X10*3/uL (1.2-4.9); Lymphocytes Percent Auto 28.5 % (20-40); Mean Corpuscular HGB Conc 33.7 g/dl (31.0-35.0); Mean Corpuscular Hemoglobin 30.2 pg (27.0-33.0); Mean Corpuscular Volume 89.8 fL (80.0-98.0); Mean Platelet Volume 9.9 fL (9.4-12.3); Monocytes Absolute Auto 0.6 X10*3/uL (0.1-1.2); Monocytes Percent Auto 6.9 % (2-11); Neutrophils Absolute Auto 5.5 x10*3/uL (2.0-8.3); Neutrophils Percent Auto 59.4 % (45-73); Platelet Count 364 X10*3/uL (160-400); Red Blood Count 3.34 X10*6/uL (4.20-5.50); Red Cell Distribution Width 13.6 % (11.0-16.0); White Blood Count 9.2 X10*3/uL (4.8-10.8)
[2022-04-23 05:23] LABS: VBG Base Excess -6.2 mmol/L; VBG HCO3 19 mmol/L (22-26); VBG pCO2 37 mmHg; VBG pH 7.31 (7.32-7.43); VBG pO2 44 mmHg
[2022-04-23 05:24] LABS: Venous Blood Gas Refer to POC result
[2022-04-23 05:34] LABS: Alanine Aminotransferase 10 U/L (0-31); Albumin Level 3.5 g/dL (3.5-5.0); Alkaline Phosphatase 107 U/L (39-117); Anion Gap 20 (12-20); Aspartate Amino Transferase 18 U/L (5-31); Bilirubin Total 0.2 mg/dL (0.0-1.0); Blood Urea Nitrogen 15 mg/dL (9-16); Calcium 9.3 mg/dL (8.4-10.2); Carbon Dioxide 17 mmol/L (22-29); Chloride 104 mmol/L (96-108); Creatinine Clr Calc Pharmacy 58.3; Estimated Glomerular Filt Rate > 60; Glucose Random 166 mg/dL (60-115); Magnesium 1.6 mg/dL (1.6-2.6); Phosphorus 4.3 mg/dL (2.7-4.5); Potassium 4.5 mmol/L (3.3-5.1); Sodium 136 mmol/L (135-145); Total Protein 7.6 g/dL (6.5-8.0)
[2022-04-23] MEDS: Pantoprazole Sodium 40 MG/10 ML VIAL IVPUSH (06:16)
[2022-04-23] MEDS: Chlorhexidine Gluc Oral Rinse 15 ML MOUTHWASH BUCCAL ×3 (08:05→23:55)
[2022-04-23] MEDS: Magnesium Sulfate/H2O 2 GM/50 ML PIGGYBACK IV (08:13)
[2022-04-23] MEDS: dexmedeTOMIDidine HCL/NS 400 MCG/100 ML INFUS..BTL 9.78 MCG IVCONT (08:28)
--- NOTE | 2022-04-23 09:44 | MHC.CLN ---
F/U PT REMAINS INTUBATED AND SEDATED TF CURRENTLY ON HOLD WHEN TF TO RE-START; RECOMMEND GLUCERNA TF AT MAX GOAL RATE 40ML/HR WITH 30ML PROSOURCE BID AND 240ML Q 8HRS TO PROVIDE 1080KCALS, 70G TOTAL PROTEIN (1.09G/KG), 1539ML TOTAL WATER FROM FORMULA AND FLUSHES (24ML/KG) MONITOR TOLERANCE, RESIDUALS AND LYTES
[2022-04-23] MEDS: methADONE HCl 20 MG/2 ML ORAL.CONC 107 MG PO (10:14)
[2022-04-23] MEDS: Haloperidol Lactate 5 MG/ML VIAL 10 MG IVPUSH (10:37)
[2022-04-23] MEDS: Lactulose 20 GM/30 ML SOLUTION 30 GM PO ×2 (10:38→19:56)
[2022-04-23] MEDS: lamoTRIgine 25 MG TABLET 50 MG PO ×2 (10:40→19:56)
--- NOTE | 2022-04-23 10:44 | PM.CCPN ---
Subjective Subjective Date of Service: 04/23/22 Interval History: 56-year-old lady with underlying history of polysubstance abuse admitted on 04/19/2022 with acute delirium and agitation including self-harm (banging head on the floor/bed) requiring intubation and ventilatory support for high-dose sedative drips, further complicated by acute kidney injury and rhabdomyolysis. Now with slowly improving agitation. MRI brain with no acute findings. No events overnight. Critical Care Time (minutes): 45 Physical Exam Vital Signs: Vital Signs: Last Vital Signs Temp 99.0 F 04/23/22 09:00 Pulse 86 04/23/22 10:00 Resp 20 04/23/22 09:00 BP 185/86 H 04/23/22 10:00 Pulse Ox 98 04/23/22 10:00 O2 Del Method 04/23/22 10:00 FiO2 30 04/23/22 10:00 BMI result Body Mass Index 24.3 Const: General: no acute distress and other ( Sedated on the vent) Eyes: Sclerae: sclerae normal EOM: EOMs intact bilaterally Neck: Neck: Yes no lymphadenopathy, Yes trachea midline and Yes supple Resp: Effort & Inspection: normal respiratory effort and no respiratory distress Auscultation: clear to auscultation bilaterally Cardio: Rate: regular rate Rhythm: regular rhythm Heart sounds: no gallops, no murmurs and no rubs GI: Palpation (GI): Soft to palpation and Other GI palpation findings present ( Nontender) Auscultation: normal bowel sounds Extrem: General: Yes no pedal edema, No clubbing and No cyanosis Objective Data Labs CBC & Chem 7: 04/23/22 05:08 04/23/22 05:08 Labs: Laboratory Results - last 24 hr 04/23/22 04/23/22 04/23/22 05:08 05:08 05:18 WBC 9.2 RBC 3.34 L Hgb 10.1 L Hct 30.0 L MCV 89.8 MCH 30.2 MCHC 33.7 RDW 13.6 Plt Count 364 MPV 9.9 Immature Gran % (Auto) 1.0 H Neut % (Auto) 59.4 Lymph % (Auto) 28.5 [place] % (Auto) 6.9 Eos % (Auto) 3.5 Baso % (Auto) 0.7 Lymph # (Auto) 2.6 [place] # (Auto) 0.6 Eos # (Auto) 0.3 Baso # (Auto) 0.1 Abs Immat Gran (auto) 0.09 H Absolute Neuts (auto) 5.5 Absolute Nucleated RBC 0.000 Nucleated RBC % (auto) 0.0 VBG pH 7.31 L VBG pCO2 37 VBG pO2 44 VBG HCO3 19 L VBG O2 Saturation 66.0 VBG Base Excess -6.2 Sodium 136 Potassium 4.5 Chloride 104 Carbon Dioxide 17 L Anion Gap 20 BUN 15 Creatinine 0.94 Estim Creat Clear Calc 58.3 Estimated GFR > 60 Random Glucose 166 H Calcium 9.3 Phosphorus 4.3 Magnesium 1.6 Total Bilirubin 0.2 AST 18 ALT 10 Alkaline Phosphatase 107 Total Protein 7.6 Albumin 3.5 Microbiology Microbiology Results: Microbiology 04/19/22 13:21 Blood - Venous Blood Culture - Preliminary No growth after 48 hours. 04/19/22 13:21 Blood - Venous Blood Culture - Preliminary No growth after 48 hours. 04/19/22 15:32 Sputum - Suctioned Gram Stain - Final 04/19/22 15:32 Sputum - Suctioned Routine Culture - Final Progress Note: A&P Assessment and plan (1) Acute kidney injury: Status: Acute (2) Acute respiratory failure: Status: Acute (3) Delirium: Status: Acute (4) Toxic metabolic encephalopathy: Status: Acute (5) Polysubstance abuse: Status: Acute Plan Assessment: 56-year-old lady with underlying history of polysubstance abuse admitted with toxic metabolic encephalopathy, acute respiratory failure, acute kidney injury, and rhabdomyolysis. Plan: Neuro: Toxic metabolic encephalopathy likely secondary to polysubstance abuse and/or withdrawal. Small 3 mm subdural on initial CT scan. Still with significant agitation, though improving slowly. MRI brain with no findings.. Continue to titrate of high-dose sedative drips as tolerated. Continue on home regimen of methadone. Cardiac: No acute issues. Pulmonary: Acute respiratory failure requiring ventilatory support, continue to titrate off as tolerated. Renal: Acute kidney injury and rhabdomyolysis, improved. Continue to monitor renal indices and urine output. Endo: No acute issues. GI: No acute issues. ID: No acute issues Heme/Onc: No acute issues. Psych: No acute issues. Miscellaneous: No acute issues. Prophylaxis: Heparin, ppi Diet: tube feeds Critical care time spent: 45 minutes Quality Stroke Does the patient have a stroke diagnosis?: No VTE Prior VTE?: No VTE Risk Level:: Medical - moderate - high VTE Device Contraindication: N/A - Device Ordered VTE Drug Contraindication: Treatment Not Indicated
[2022-04-23] MEDS: dexmedeTOMIDidine HCL/NS 400 MCG/100 ML INFUS..BTL 22.82 MCG IVCONT ×2 (13:42→18:06)
[2022-04-23] MEDS: propofoL 1,000 MG/100 ML VIAL 13.88 MG IVCONT ×2 (15:18→22:23)
--- NOTE | 2022-04-23 17:47 | PC.NURSE ---
0700 - PT on ACVC+ rate 14/volume 400/peep 5/fiO2 30%. 0749 - Nimbex drip held per MD. 0750 - versed drip held per MD. PT began to become agitated in following hours with eyes opening to stimuli, unable to follow commands. 1000 - levophed drip held due to high and increasing MAP. SEE EMAR. 1030 - PT placed on PSV trial 5/5 fiO2 30%. 1037 - 10mg Haldol administered per MD due to increased agitation. Good effect noted by RN. SEE EMAR. 1038 - Lactulose given, no BM since administration. SEE EMAR. 1111- Propofol drip held per MD. 1225 - Propofol drip restarted, titrated up to 30ml/kg/hr. SEE EMAR. 1500 - tube feedings restarted, titrated up to goal of 40ml/hr. PT tolerating well, see Tube feeding assessment. PT bathed, rotated q2hr, family updated on health status, oral care routinely preformed.
[2022-04-23] MEDS: dexmedeTOMIDidine HCL/NS 400 MCG/100 ML INFUS..BTL 16.3 MCG IVCONT (22:26)
[2022-04-24] VITALS (29 sets, daily range): BP systolic 114–169; BP diastolic 46–77; PULSE 59–89; RESP 12–28; TEMP 34.8–37.6; O2SAT 90–99; BMI 24.3
[2022-04-24] MEDS: Heparin Sodium,Porcine 5,000 UNIT/ML VIAL 5000 UNIT SUBCUT ×3 (00:13→16:05)
[2022-04-24] MEDS: propofoL 1,000 MG/100 ML VIAL 23.13 MG IVCONT ×3 (01:20→08:16)
[2022-04-24] MEDS: dexmedeTOMIDidine HCL/NS 400 MCG/100 ML INFUS..BTL 16.3 MCG IVCONT ×2 (04:45→15:31)
[2022-04-24 05:19] LABS: VBG Base Excess -7.7 mmol/L; VBG HCO3 16 mmol/L (22-26); VBG pCO2 31 mmHg; VBG pH 7.33 (7.32-7.43); VBG pO2 40 mmHg
[2022-04-24 05:36] LABS: MANUAL DIFF FLAG NO
[2022-04-24 05:39] LABS: Venous Blood Gas Refer to POC result
[2022-04-24 05:41] LABS: Basophils Absolute Auto 0.1 X10*3/uL (0.0-0.2); Basophils Percent Auto 0.6 % (0-2); Eosinophils Absolute Auto 0.4 X10*3/uL (0.0-0.4); Eosinophils Percent Auto 3.4 % (0-4); Hematocrit 31.1 % (37.0-47.0); Hemoglobin 10.4 g/dl (12.0-16.0); Imm Gran Abs Auto 0.12 X10*3/uL (0.00-0.03); Imm Gran Pct Auto 1.1 % (0.0-0.4); Lymphocytes Absolute Auto 2.7 X10*3/uL (1.2-4.9); Mean Corpuscular HGB Conc 33.4 g/dl (31.0-35.0); Mean Corpuscular Hemoglobin 29.8 pg (27.0-33.0); Mean Corpuscular Volume 89.1 fL (80.0-98.0); Mean Platelet Volume 10.4 fL (9.4-12.3); Monocytes Absolute Auto 0.8 X10*3/uL (0.1-1.2); Monocytes Percent Auto 7.2 % (2-11); Neutrophils Absolute Auto 6.6 x10*3/uL (2.0-8.3); Neutrophils Percent Auto 62.7 % (45-73); Platelet Count 368 X10*3/uL (160-400); Red Blood Count 3.49 X10*6/uL (4.20-5.50); Red Cell Distribution Width 13.5 % (11.0-16.0); White Blood Count 10.6 X10*3/uL (4.8-10.8)
[2022-04-24 06:19] LABS: Albumin Level 3.4 g/dL (3.5-5.0); Anion Gap 21 (12-20); Blood Urea Nitrogen 16 mg/dL (9-16); Calcium 9.5 mg/dL (8.4-10.2); Carbon Dioxide 16 mmol/L (22-29); Chloride 101 mmol/L (96-108); Creatinine Clr Calc Pharmacy 59.6; Estimated Glomerular Filt Rate > 60; Glucose Random 237 mg/dL (60-115); Magnesium 1.3 mg/dL (1.6-2.6); Phosphorus 4.2 mg/dL (2.7-4.5); Potassium 4.4 mmol/L (3.3-5.1); Sodium 134 mmol/L (135-145)
[2022-04-24] MEDS: Lactulose 20 GM/30 ML SOLUTION 30 GM PO (08:15)
[2022-04-24] MEDS: Chlorhexidine Gluc Oral Rinse 15 ML MOUTHWASH BUCCAL (08:15)
[2022-04-24] MEDS: Magnesium Sulfate/H2O 2 GM/50 ML PIGGYBACK IV (08:15)
[2022-04-24] MEDS: methADONE HCl 20 MG/2 ML ORAL.CONC 107 MG PO (08:16)
[2022-04-24] MEDS: lamoTRIgine 25 MG TABLET 50 MG PO (08:19)
[2022-04-24] MEDS: Albumin Human 25 % 100 ML IV ×3 (08:35→20:12)
--- NOTE | 2022-04-24 08:42 | PC.NURSE ---
Addendum entered by Eron Robles RN 04/24/22 11:23: pt bathed this shift Addendum entered by Eron Robles RN 04/24/22 10:40: pt successfully extubated at 1000 w/ RT and RN at bedside. pt awake, saying very few words and following commands. md informed. sitter at bedside d/t pt attempting to get out of bed. family at bedside. Original Note: per md plan to extubate pt this AM. prop drip titrated per md. dex increased d/t increased pt agitation. md assessing pt at bedside. TF on hold around 0800 for planned extubation. At 0840 pt + commands and tracking.
[2022-04-24] MEDS: Sodium Bicarbonate 8.4% 150 MEQ in Dextrose 5 % 850 ML 50 MEQ IV (09:19)
[2022-04-24] MEDS: dexmedeTOMIDidine HCL/NS 400 MCG/100 ML INFUS..BTL 19.56 MCG IVCONT ×2 (09:20→21:41)
[2022-04-24 12:07] LABS: Glucose, Whole Blood 191 mg/dL (60-115)
--- NOTE | 2022-04-24 12:30 | P.PNCC_ITS ---
Subjective Subjective Date of Service: 04/24/22 Interval History: 56-year-old lady with underlying history of polysubstance abuse admitted on 04/19/2022 with acute delirium and agitation including self-harm (banging head on the floor/bed) requiring intubation and ventilatory support for high-dose sedative drips, further complicated by acute kidney injury and rhabdomyolysis. Now with slowly improving agitation. MRI brain with no acute findings. No events overnight, extubated uneventfully this a.m. Critical Care Time (minutes): 45 Physical Exam Vital Signs: Vital Signs: Last Vital Signs Temp 98.8 F 04/24/22 12:00 Pulse 70 04/24/22 12:00 Resp 16 04/24/22 12:00 BP 137/66 04/24/22 12:00 Pulse Ox 96 04/24/22 12:00 O2 Del Method 04/24/22 12:00 O2 Flow Rate 3 04/24/22 12:00 FiO2 30 04/24/22 10:00 BMI result Body Mass Index 24.3 Const: General: no acute distress, alert, awake and confusion O rientation/consciousness: confusion Eyes: Sclerae: sclerae normal EOM: EOMs intact bilaterally Neck: Neck: Yes no lymphadenopathy, Yes trachea midline and Yes supple Resp: Effort & Inspection: normal respiratory effort and no respiratory distress Auscultation: clear to auscultation bilaterally Cardio: Rate: regular rate Rhythm: regular rhythm Heart sounds: no ga llops, no murmurs and no rubs GI: Palpation (GI): Soft to palpation and Other GI palpation findings present ( Nontender) Auscultation: normal bowel sounds Neuro: General: confusion Extrem: General: Yes no pedal edema, No clubbing and No cyanosis Objective Data Labs CBC & Chem 7: 04/24/22 05:10 04/24/22 05:10 Labs: Laboratory Results - last 24 hr 04/24/22 04/24/22 04/24/22 05:10 05:10 05:13 WBC 10.6 RBC 3.49 L Hgb 10.4 L Hct 31.1 L MCV 89.1 MCH 29.8 MCHC 33.4 RDW 13.5 Plt Count 368 MPV 10.4 Immature Gran % (Auto) 1.1 H Neut % (Auto) 62.7 Lymph % (Auto) 25.0 [place] % (Auto) 7.2 Eos % (Auto) 3.4 Baso % (Auto) 0.6 Lymph # (Auto) 2.7 [place] # (Auto) 0.8 Eos # (Auto) 0.4 Baso # (Auto) 0.1 Abs Immat Gran (auto) 0.12 H Absolute Neuts (auto) 6.6 Absolute Nucleated RBC 0.000 Nucleated RBC % (auto) 0.0 VBG pH 7.33 VBG pCO2 31 VBG pO2 40 VBG HCO3 16 L VBG O2 Saturation 55.0 VBG Base Excess -7.7 Sodium 134 L Potassium 4.4 Chloride 101 Carbon Dioxide 16 L Anion Gap 21 H BUN 16 Creatinine 0.92 Estim Creat Clear Calc 59.6 Estimated GFR > 60 POC Glucose Random Glucose 237 H Calcium 9.5 Phosphorus 4.2 Magnesium 1.3 L* Albumin 3.4 L 04/24/22 12:04 WBC RBC Hgb Hct MCV MCH MCHC RDW Plt Count MPV Immature Gran % (Auto) Neut % (Auto) Lymph % (Auto) [place] % (Auto) Eos % (Auto) Baso % (Auto) Lymph # (Auto) [place] # (Auto) Eos # (Auto) Baso # (Auto) Abs Immat Gran (auto) Absolute Neuts (auto) Absolute Nucleated RBC Nucleated RBC % (auto) VBG pH VBG pCO2 VBG pO2 VBG HCO3 VBG O2 Saturation VBG Base Excess Sodium Potassium Chloride Carbon Dioxide Anion Gap BUN Creatinine Estim Creat Clear Calc Estimated GFR POC Glucose 191 H Random Glucose Calcium Phosphorus Magnesium Albumin Microbiology Microbiology Results: Microbiology 04/19/22 13:21 Blood - Venous Blood Culture - Preliminary No growth after 48 hours. 04/19/22 13:21 Blood - Venous Blood Culture - Preliminary No growth after 48 hours. 04/19/22 15:32 Sputum - Suctioned Gram Stain - Final 04/19/22 15:32 Sputum - Suctioned Routine Culture - Final Progress Note: A&P Assessment and plan (1) Acute kidney injury: Status: Acute (2) Acute respiratory failure: Status: Acute (3) Delirium: Status: Acute (4) Toxic metabolic encephalopathy: Status: Acute (5) Rhabdomyolysis: Status: Acute (6) Polysubstance abuse: Status: Acute (7) Diabetes: Status: Acute Plan Assessment: 56-year-old lady with underlying history of polysubstance abuse admitted with toxic metabolic encephalopathy, acute respiratory failure, acute kidney injury, and rhabdomyolysis. Plan: Neuro: Toxic metabolic encephalopathy likely secondary to polysubstance abuse and/or withdrawal. Small 3 mm subdural on initial CT scan. Agitation has significantly improved. MRI brain with no findings. Continue to titrate of sedative drips as tolerated. Continue on home regimen of methadone. Cardiac: No acute issues. Pulmonary: Acute respiratory failure requiring ventilatory support, extubated this a.m.. Renal: Acute kidney injury and rhabdomyolysis, improved, though still with bicarbonate wasting. Started on D5 with bicarbonate. Continue to monitor renal indices and urine output. Endo: No acute issues. GI: No acute issues. ID: No acute issues Heme/Onc: No acute issues. Psych: No acute issues. Miscellaneous: No acute issues. Prophylaxis: Heparin, ppi Diet: Pending swallow evaluation Critical care time spent: 45 minutes Quality Stroke Does the patient have a stroke diagnosis?: No VTE Prior VTE?: No VTE Risk Level:: Medical - moderate - high VTE Device Contraindication: N/A - Device Ordered VTE Drug Contraindication: Treatment Not Indicated
--- NOTE | 2022-04-24 16:25 | MHC.CM.PN ---
Pt extubated and on n/c O2. CM to follow on 04/25 for d/c plan updating. Original plan for a return to home with family support: pt should see the CARE team prior to d/c for substance abuse counseling
[2022-04-25] VITALS (15 sets, daily range): BP systolic 141–170; BP diastolic 51–75; PULSE 74–111; RESP 13–21; TEMP 37.1–37.8; O2SAT 90–100; BMI 26.4
[2022-04-25] MEDS: Heparin Sodium,Porcine 5,000 UNIT/ML VIAL 5000 UNIT SUBCUT ×3 (01:09→17:08)
[2022-04-25] MEDS: Albumin Human 25 % 100 ML IV (01:09)
[2022-04-25] MEDS: Sodium Bicarbonate 8.4% 150 MEQ in Dextrose 5 % 850 ML 50 MEQ IV (03:20)
[2022-04-25] MEDS: dexmedeTOMIDidine HCL/NS 400 MCG/100 ML INFUS..BTL 16.3 MCG IVCONT (03:21)
[2022-04-25 05:25] LABS: VBG Base Excess -1.3 mmol/L; VBG HCO3 22 mmol/L (22-26); VBG pCO2 36 mmHg; VBG pO2 45 mmHg
[2022-04-25 05:52] LABS: MANUAL DIFF FLAG NO
[2022-04-25 05:56] LABS: Venous Blood Gas Refer to POC result
[2022-04-25 05:57] LABS: Basophils Absolute Auto 0.1 X10*3/uL (0.0-0.2); Basophils Percent Auto 0.5 % (0-2); Eosinophils Absolute Auto 0.2 X10*3/uL (0.0-0.4); Eosinophils Percent Auto 1.4 % (0-4); Hematocrit 28.5 % (37.0-47.0); Hemoglobin 9.4 g/dl (12.0-16.0); Imm Gran Abs Auto 0.05 X10*3/uL (0.00-0.03); Imm Gran Pct Auto 0.4 % (0.0-0.4); Lymphocytes Absolute Auto 1.3 X10*3/uL (1.2-4.9); Lymphocytes Percent Auto 10.6 % (20-40); Mean Corpuscular Hemoglobin 28.7 pg (27.0-33.0); Mean Corpuscular Volume 87.2 fL (80.0-98.0); Mean Platelet Volume 10.4 fL (9.4-12.3); Monocytes Absolute Auto 0.6 X10*3/uL (0.1-1.2); Neutrophils Absolute Auto 9.9 x10*3/uL (2.0-8.3); Neutrophils Percent Auto 82.1 % (45-73); Platelet Count 342 X10*3/uL (160-400); Red Blood Count 3.27 X10*6/uL (4.20-5.50); White Blood Count 12.1 X10*3/uL (4.8-10.8)
[2022-04-25 06:22] LABS: Alanine Aminotransferase 11 U/L (0-31); Albumin Level 4.8 g/dL (3.5-5.0); Alkaline Phosphatase 102 U/L (39-117); Anion Gap 19 (12-20); Aspartate Amino Transferase 17 U/L (5-31); Bilirubin Total 0.5 mg/dL (0.0-1.0); Blood Urea Nitrogen 13 mg/dL (9-16); Calcium 10.1 mg/dL (8.4-10.2); Carbon Dioxide 24 mmol/L (22-29); Chloride 100 mmol/L (96-108); Creatinine Clr Calc Pharmacy 77.2; Estimated Glomerular Filt Rate > 60; Glucose Random 214 mg/dL (60-115); Magnesium 1.2 mg/dL (1.6-2.6); Phosphorus 3.3 mg/dL (2.7-4.5); Potassium 3.7 mmol/L (3.3-5.1); Sodium 139 mmol/L (135-145); Total Protein 8.1 g/dL (6.5-8.0)
[2022-04-25] MEDS: Magnesium Sulfate/H2O 2 GM/50 ML PIGGYBACK IV ×2 (06:31→09:54)
[2022-04-25 08:18] LABS: Glucose, Whole Blood 221 mg/dL (60-115)
[2022-04-25] MEDS: Lactulose 20 GM/30 ML SOLUTION 30 GM PO (08:24)
[2022-04-25] MEDS: lamoTRIgine 25 MG TABLET 75 MG PO ×2 (08:24→20:54)
[2022-04-25] MEDS: methADONE HCl 20 MG/2 ML ORAL.CONC 107 MG PO (08:24)
--- NOTE | 2022-04-25 10:01 | MHC.CLN ---
F/U PT EXTUBATED YESTERDAY DIET TO ADVANCE TODAY RECOMMEND 1800DM MONITOR PO INTAKE CLOSELY
[2022-04-25 10:51] LABS: Glucose, Whole Blood 198 mg/dL (60-115)
[2022-04-25] MEDS: Insulin Lispro 100 UNIT/ML 3 ML VIAL SUBCUT ×2 (10:51→20:59)
--- NOTE | 2022-04-25 11:04 | P.PNCC_ITS ---
Subjective Subjective Date of Service: 04/25/22 Interval History: 56-year-old lady with underlying history of polysubstance abuse admitted on 04/19/2022 with acute delirium and agitation including self-harm (banging head on the floor/bed) requiring intubation and ventilatory support for high-dose sedative drips, further complicated by acute kidney injury and rhabdomyolysis. Now with slowly improving agitation. MRI brain with no acute findings. Extubated 04/24/2022 No events overnight, titrated off Precedex drip. Passed bedside swallow evaluation. Critical Care Time (minutes): 30 Physical Exam Vital Signs: Vital Signs: Last Vital Signs Temp 100 F 04/25/22 10:00 Pulse 99 04/25/22 10:00 Resp 18 04/25/22 10:00 BP 150/73 H 04/25/22 10:00 Pulse Ox 90 L 04/25/22 10:00 O2 Del Method 04/25/22 10:00 O2 Flow Rate 3 04/25/22 10:00 FiO2 30 04/24/22 10:00 BMI result Body Mass Index 26.4 Const: General: no acute distress, alert, awake and confusion Orientation/consciousness: confusion Eyes: Sclerae: sclerae normal EOM: EOMs intact bilaterally Neck: Neck: Yes no lymphadenopathy, Yes trachea midline and Yes supple Resp: Effort & Inspection: normal respiratory effort and no respiratory distress Auscultation: clear to auscultation bilaterally Cardio: Rate: tachycardic Rhythm: regular rhythm Heart sounds: no gallops, no murmurs and no rubs GI: Palpation (GI): Soft to palpation and Other GI palpation findings present ( Nontender) Auscultation: normal bowel sounds Neuro: General: confusion Extrem: General: Yes no pedal edema, No clubbing and No cyanosis Objective Data Labs CBC & Chem 7: 04/25/22 05:20 04/25/22 05:20 Labs: Laboratory Results - last 24 hr 04/24/22 04/25/22 04/25/22 12:04 05:20 05:20 WBC 12.1 H RBC 3.27 L Hgb 9.4 L Hct 28.5 L MCV 87.2 MCH 28.7 MCHC 33.0 RDW 13.0 Plt Count 342 MPV 10.4 Immature Gran % (Auto) 0.4 Neut % (Auto) 82.1 H Lymph % (Auto) 10.6 L [place] % (Auto) 5.0 Eos % (Auto) 1.4 Baso % (Auto) 0.5 Lymph # (Auto) 1.3 [place] # (Auto) 0.6 Eos # (Auto) 0.2 Baso # (Auto) 0.1 Abs Immat Gran (auto) 0.05 H Absolute Neuts (auto) 9.9 H Absolute Nucleated RBC 0.000 Nucleated RBC % (auto) 0.0 VBG pH VBG pCO2 VBG pO2 VBG HCO3 VBG O2 Saturation VBG Base Excess Sodium 139 Potassium 3.7 Chloride 100 Carbon Dioxide 24 Anion Gap 19 BUN 13 Creatinine 0.79 Estim Creat Clear Calc 77.2 Estimated GFR > 60 POC Glucose 191 H Random Glucose 214 H Calcium 10.1 D Phosphorus 3.3 Magnesium 1.2 L* Total Bilirubin 0.5 AST 17 ALT 11 Alkaline Phosphatase 102 Total Protein 8.1 H Albumin 4.8 D 04/25/22 04/25/22 04/25/22 05:20 08:12 10:48 WBC RBC Hgb Hct MCV MCH MCHC RDW Plt Count MPV Immature Gran % (Auto) Neut % (Auto) Lymph % (Auto) [place] % (Auto) Eos % (Auto) Baso % (Auto) Lymph # (Auto) [place] # (Auto) Eos # (Auto) Baso # (Auto) Abs Immat Gran (auto) Absolute Neuts (auto) Absolute Nucleated RBC Nucleated RBC % (auto) VBG pH 7.40 VBG pCO2 36 VBG pO2 45 VBG HCO3 22 VBG O2 Saturation 70.0 VBG Base Excess -1.3 Sodium Potassium Chloride Carbon Dioxide Anion Gap BUN Creatinine Estim Creat Clear Calc Estimated GFR POC Glucose 221 H 198 H Random Glucose Calcium Phosphorus Magnesium Total Bilirubin AST ALT Alkaline Phosphatase Total Protein Albumin Microbiology Microbiology Results: Microbiology 04/19/22 13:21 Blood - Venous Blood Culture - Final No growth after 5 days. 04/19/22 13:21 Blood - Venous Blood Culture - Final No growth after 5 days. 04/19/22 15:32 Sputum - Suctioned Gram Stain - Final 04/19/22 15:32 Sputum - Suctioned Routine Culture - Final Progress Note: A&P Assessment and plan (1) Acute kidney injury: Status: Acute (2) Delirium: Status: Acute (3) Toxic metabolic encephalopathy: Status: Acute (4) Rhabdomyolysis: Status: Acute (5) Acute encephalopathy: Status: Acute (6) Polysubstance abuse: Status: Acute (7) Diabetes: Status: Acute Plan Assessment: 56-year-old lady with underlying history of polysubstance abuse admitted with toxic metabolic encephalopathy, acute respiratory failure, acute kidney injury, and rhabdomyolysis. Plan: Neuro: Toxic metabolic encephalopathy likely secondary to polysubstance abuse and/or withdrawal. Small 3 mm subdural on initial CT scan , stable on follow- up. Agitation has significantly improved. MRI brain with no acute findings. Titrated off sedative drips as tolerated. Continue on home regimen of methadone. Restarted on gabapentin. Cardiac: No acute issues. Pulmonary: Acute respiratory failure requiring ventilatory support, extubated 04/24/2022. Renal: Acute kidney injury and rhabdomyolysis, resolved. Continue to monitor renal indices and urine output. Endo: No acute issues. GI: No acute issues. ID: No acute issues Heme/Onc: No acute issues. Psych: No acute issues. Miscellaneous: No acute issues. Prophylaxis: Heparin Diet: regular Critical care time spent: 30 minute Quality Stroke Does the patient have a stroke diagnosis?: No VTE Prior VTE?: No VTE Risk Level:: Medical - moderate - high VTE Device Contraindication: N/A - Device Ordered VTE Drug Contraindication: Treatment Not Indicated
[2022-04-25] MEDS: Gabapentin 600 MG TABLET PO ×2 (14:28→20:54)
[2022-04-25] MEDS: Haloperidol Lactate 5 MG/ML VIAL IVPUSH (14:29)
[2022-04-25 15:54] LABS: Glucose, Whole Blood 135 mg/dL (60-115)
[2022-04-25 20:33] LABS: Glucose, Whole Blood 182 mg/dL (60-115)
[2022-04-26] VITALS (7 sets, daily range): BP systolic 150–170; BP diastolic 70–81; PULSE 105–120; RESP 16–20; TEMP 36.6–39.2; O2SAT 90–94; BMI 26.5
[2022-04-26] MEDS: Heparin Sodium,Porcine 5,000 UNIT/ML VIAL 5000 UNIT SUBCUT ×3 (00:10→17:25)
[2022-04-26] MEDS: Haloperidol Lactate 5 MG/ML VIAL IVPUSH (00:10)
[2022-04-26 07:06] LABS: MANUAL DIFF FLAG NO
[2022-04-26 07:13] LABS: Basophils Absolute Auto 0.1 X10*3/uL (0.0-0.2); Basophils Percent Auto 0.5 % (0-2); Eosinophils Percent Auto 0.1 % (0-4); Hematocrit 31.4 % (37.0-47.0); Hemoglobin 10.2 g/dl (12.0-16.0); Imm Gran Abs Auto 0.08 X10*3/uL (0.00-0.03); Imm Gran Pct Auto 0.6 % (0.0-0.4); Lymphocytes Absolute Auto 0.7 X10*3/uL (1.2-4.9); Lymphocytes Percent Auto 5.3 % (20-40); Mean Corpuscular HGB Conc 32.5 g/dl (31.0-35.0); Mean Corpuscular Hemoglobin 28.2 pg (27.0-33.0); Mean Corpuscular Volume 86.7 fL (80.0-98.0); Mean Platelet Volume 10.3 fL (9.4-12.3); Monocytes Absolute Auto 0.9 X10*3/uL (0.1-1.2); Monocytes Percent Auto 6.7 % (2-11); Neutrophils Absolute Auto 11.2 x10*3/uL (2.0-8.3); Neutrophils Percent Auto 86.8 % (45-73); Platelet Count 333 X10*3/uL (160-400); Red Blood Count 3.62 X10*6/uL (4.20-5.50); Red Cell Distribution Width 13.3 % (11.0-16.0); White Blood Count 12.9 X10*3/uL (4.8-10.8)
[2022-04-26 07:22] LABS: Glucose, Whole Blood 258 mg/dL (60-115)
[2022-04-26 08:01] LABS: Albumin Level 4.4 g/dL (3.5-5.0); Anion Gap 21 (12-20); Carbon Dioxide 22 mmol/L (22-29); Chloride 97 mmol/L (96-108); Creatinine Clr Calc Pharmacy 64.3; Estimated Glomerular Filt Rate > 60; Glucose Random 312 mg/dL (60-115); Magnesium 1.6 mg/dL (1.6-2.6); Potassium 4.1 mmol/L (3.3-5.1); Sodium 136 mmol/L (135-145)
[2022-04-26] MEDS: lamoTRIgine 25 MG TABLET 75 MG PO (08:13)
[2022-04-26] MEDS: Insulin Lispro 100 UNIT/ML 3 ML VIAL SUBCUT ×4 (08:13→20:08)
[2022-04-26] MEDS: methADONE HCl 20 MG/2 ML ORAL.CONC 107 MG PO (08:13)
[2022-04-26] MEDS: Gabapentin 600 MG TABLET PO ×3 (08:14→20:05)
[2022-04-26 08:47] LABS: Blood Urea Nitrogen 20 mg/dL (9-16)
[2022-04-26 11:20] LABS: Glucose, Whole Blood 216 mg/dL (60-115)
--- NOTE | 2022-04-26 13:48 | HO.PM.IMPN ---
Subjective Subjective Date of Service: 04/26/22 Interval History: The patient was seen and evaluated this morning Laying in bed, feels comfortable overall, sleepy and tired Denies any suicidal or homocidal thoughts Denies any fever, chills or shortness of breath No reported other overnight events. Systemic review: No fever, chills or weakness No chest pain, palpitation No shortness of breath or coughing No abdominal pain, nausea or vomiting No urinary symptoms No any rash or wounds lower extremities tingling and weakness Physical Exam Vital Signs: Vital Signs: Last Vital Signs Temp 97.8 F 04/26/22 11:11 Pulse 105 H 04/26/22 11:11 Resp 19 04/26/22 11:11 BP 158/75 H 04/26/22 11:11 Pulse Ox 94 04/26/22 11:11 O2 Del Method 04/26/22 11:11 O2 Flow Rate 3 04/25/22 11:00 FiO2 30 04/24/22 10:00 BMI result Body Mass Index 26.5 Const: Other: Constitutional : Alert, interactive but sleepy, not in distress Neck : Normal inspection, Supple Cardiovascular : RRR, no JVP, no lower extremity edema Respiratory : fair bilateral air entry, no crackles, wheezes or rhonchi Gastrointestinal: soft, lax, Normal bowel sounds, Non tender Skin : Warm, Dry Neurological : Alert & oriented x3, No focal deficit Objective Data Active Medications Gabapentin (Gabapentin 600 Mg Tablet) 600 mg PO TID [facility] Last Admin: 04/26/22 08:14 Dose: 600 mg Documented By: RADHA Heparin Sodium (Porcine) (Heparin Sodium,Porcine 5,000 Unit/Ml Vial) 5,000 unit SUBCUT Q8H [facility] Last Admin: 04/26/22 08:14 Dose: 5,000 unit Documented By: RADHA Insulin Human Lispro (Insulin Lispro 100 Unit/Ml 3 Ml Vial) 0 unit SUBCUT QIDACHS [facility]; Protocol Last Admin: 04/26/22 11:55 Dose: 4 unit Documented By: RADHA Lamotrigine (Lamotrigine 25 Mg Tablet) 75 mg PO BID [facility] Last Admin: 04/26/22 08:13 Dose: 75 mg Documented By: RADHA Methadone HCl (Methadone Hcl 20 Mg/2 Ml Oral.Conc) 107 mg PO DAILY [facility] Last Admin: 04/26/22 08:13 Dose: 107 mg Documented By: RADHA Pharmacy Consult (Consult Rx Perform Med Rec) 1 each MISCELLANE ONCE PRN PRN Reason: Consult order Labs CBC & Chem 7: 04/26/22 06:51 04/26/22 06:51 Labs: Laboratory Results - last 24 hr 04/25/22 04/25/22 04/26/22 15:45 20:29 06:51 MCV 86.7 MCH 28.2 MCHC 32.5 RDW 13.3 Plt Count 333 MPV 10.3 Immature Gran % (Auto) 0.6 H Neut % (Auto) 86.8 H Lymph % (Auto) 5.3 L [place] % (Auto) 6.7 Eos % (Auto) 0.1 Baso % (Auto) 0.5 Lymph # (Auto) 0.7 L [place] # (Auto) 0.9 Eos # (Auto) 0.0 Baso # (Auto) 0.1 Abs Immat Gran (auto) 0.08 H Absolute Neuts (auto) 11.2 H Absolute Nucleated RBC 0.000 Nucleated RBC % (auto) 0.0 Anion Gap Estim Creat Clear Calc Estimated GFR POC Glucose 135 H 182 H Random Glucose Calcium Phosphorus Magnesium Albumin 04/26/22 04/26/22 04/26/22 06:51 07:19 11:11 MCV MCH MCHC RDW Plt Count MPV Immature Gran % (Auto) Neut % (Auto) Lymph % (Auto) [place] % (Auto) Eos % (Auto) Baso % (Auto) Lymph # (Auto) [place] # (Auto) Eos # (Auto) Baso # (Auto) Abs Immat Gran (auto) Absolute Neuts (auto) Absolute Nucleated RBC Nucleated RBC % (auto) Anion Gap 21 H Estim Creat Clear Calc 64.3 Estimated GFR > 60 POC Glucose 258 H 216 H Random Glucose 312 H Calcium 10.0 Phosphorus 3.0 Magnesium 1.6 Albumin 4.4 Assessment and Plan (1) Acute kidney injury: Status: Acute (2) Acute respiratory failure: Status: Acute (3) Delirium: Status: Acute (4) Toxic metabolic encephalopathy: Status: Acute (5) Drug overdose: Status: Acute (6) Rhabdomyolysis: Status: Acute Plan 56 years old w PMH of drug abuse, DMII, CKD, neuropathy, HTN who presenteed to the hospital with agitation and delirium 2/2 drug abuse requiting intubation and ventilation in ICU complicated by PAPO and Rhabdo. extubated 04/24. PAPO on CKD stage 3 2/2 Rhabdomyolysis CR improved to normal seems to be related to rhabdo and meds restart lisinopril and HCT monitor output and BP Toxic metabolic encephalopathy 2/2 drug intoxication, delerium improving, A\O x3 to increase pysical activity and do PT avoid meds that might alter her mentation Acute respiratory failure resolved, on room air Drug abuse and intoxication advixed complete abstensce from drugs addiction team to follow type 2 DM SSI, lantus diabetic diet HTN Continue home meds DVT PPx Lovenox Patient will need overnight hospital stay for monitoring of mental status pending PT eval for safe discharge plan Quality Stroke Does the patient have a stroke diagnosis?: No VTE Prior VTE?: No VTE Risk Level:: Medical - moderate - high VTE Device Contraindication: N/A - Device Ordered VTE Drug Contraindication: Treatment Not Indicated
--- NOTE | 2022-04-26 14:21 | MHC.RECOVSUP ---
Recovery Support note: Patient is a 56 year old German speaking female who [place] [facility] [place] a drug overdose on 04/19. This writer editor attempted to meet with patient this morning and this afternoon to discuss substance use and recovery supports. Each time patient requested this writer editor comes back later. Discussed with patient's RN who reports patient has been somnolent throughout the day. Patient receives 107mg of methadone [facility] and was restarted on the medication on 04/21. Recovery Support Team will meet with patient closer to discharge to offer services and support.
[2022-04-26 15:32] LABS: Glucose, Whole Blood 163 mg/dL (60-115)
[2022-04-26] MEDS: lisinopriL 20 MG TABLET PO (17:22)
[2022-04-26] MEDS: Baclofen 10 MG TABLET PO (17:22)
[2022-04-26] MEDS: Omeprazole 20 MG CAPSULE.DR PO (17:22)
[2022-04-26] MEDS: hydroCHLOROthiazide 12.5 MG TABLET PO (17:23)
--- NOTE | 2022-04-26 19:37 | PM.EVENT ---
Event Note Date of Service: 04/26/22 Event Note: Pt with a temp of 102.5. currently no source can be identified. sating 92% on RA with no acute symptoms. will obtain LA, blood cultures, UA and covid. will hold off abx at this time pending these results
[2022-04-26 20:04] LABS: Glucose, Whole Blood 201 mg/dL (60-115)
[2022-04-26] MEDS: Acetaminophen 325 MG TABLET 650 MG PO (20:05)
[2022-04-26] MEDS: lamoTRIgine 25 MG TABLET 50 MG PO (20:05)
[2022-04-26 20:42] LABS: Lactic Acid 1.1 mmol/L (0.5-2.0)
[2022-04-26 21:01] LABS: COVID-19 Test Negative (Negative)
[2022-04-27] VITALS (7 sets, daily range): BP systolic 116–162; BP diastolic 55–72; PULSE 93–120; RESP 16–20; TEMP 36.4–37.2; O2SAT 90–94; BMI 25.1
[2022-04-27] MEDS: Heparin Sodium,Porcine 5,000 UNIT/ML VIAL 5000 UNIT SUBCUT ×3 (01:02→17:00)
[2022-04-27] MEDS: Insulin Lispro 100 UNIT/ML 3 ML VIAL SUBCUT ×4 (07:45→20:34)
[2022-04-27 08:33] LABS: Glucose, Whole Blood 352 mg/dL (60-115)
[2022-04-27] MEDS: FLUoxetine HCl 20 MG CAPSULE 40 MG PO (08:43)
[2022-04-27] MEDS: methADONE HCl 20 MG/2 ML ORAL.CONC 107 MG PO (08:43)
[2022-04-27] MEDS: lisinopriL 20 MG TABLET PO (08:44)
[2022-04-27] MEDS: lamoTRIgine 25 MG TABLET 50 MG PO ×2 (08:44→20:34)
[2022-04-27] MEDS: hydroCHLOROthiazide 12.5 MG TABLET PO (08:44)
[2022-04-27] MEDS: Gabapentin 600 MG TABLET PO ×3 (08:44→20:34)
[2022-04-27] MEDS: Baclofen 10 MG TABLET PO (08:44)
[2022-04-27] MEDS: Omeprazole 20 MG CAPSULE.DR PO (08:46)
[2022-04-27 09:01] LABS: Hematocrit 31.2 % (37.0-47.0); Hemoglobin 10.2 g/dl (12.0-16.0); Mean Corpuscular HGB Conc 32.7 g/dl (31.0-35.0); Mean Corpuscular Hemoglobin 28.7 pg (27.0-33.0); Mean Corpuscular Volume 87.9 fL (80.0-98.0); Mean Platelet Volume 10.7 fL (9.4-12.3); Platelet Count 254 X10*3/uL (160-400); Red Blood Count 3.55 X10*6/uL (4.20-5.50); Red Cell Distribution Width 13.6 % (11.0-16.0); White Blood Count 11.1 X10*3/uL (4.8-10.8)
[2022-04-27 10:10] LABS: Anion Gap 19 (12-20); Blood Urea Nitrogen 22 mg/dL (9-16); Carbon Dioxide 24 mmol/L (22-29); Chloride 94 mmol/L (96-108); Creatinine Clr Calc Pharmacy 67.7; Estimated Glomerular Filt Rate > 60; Glucose Random 271 mg/dL (60-115); Potassium 3.7 mmol/L (3.3-5.1); Sodium 133 mmol/L (135-145)
[2022-04-27 11:00] LABS: Calcium 9.5 mg/dL (8.4-10.2)
[2022-04-27 11:21] LABS: Glucose, Whole Blood 165 mg/dL (60-115)
--- NOTE | 2022-04-27 12:28 | PHA.PROG ---
Admission Date/Time: April 19, 2022 14:42 Indication: bacteremia Weight in k.5 kg Serum Creatinine - Last 168 Hours 04/21/22 04/22/22 04/23/22 04:05 05:24 05:08 Creatinine 0.83 0.84 0.94 04/24/22 04/25/22 04/26/22 05:10 05:20 06:51 Creatinine 0.92 0.79 0.95 04/27/22 08:40 Creatinine 0.88 Estimated CrCl and GFR - Last 168 Hours 04/21/22 04/22/22 04/23/22 04:05 05:24 05:08 Estim Creat Clear Calc 66.1 65.3 58.3 Estimated GFR > 60 > 60 > 60 04/24/22 04/25/22 04/26/22 05:10 05:20 06:51 Estim Creat Clear Calc 59.6 77.2 64.3 Estimated GFR > 60 > 60 > 60 04/27/22 08:40 Estim Creat Clear Calc 67.7 Estimated GFR > 60 Vancomycin Loading Dose: 1750 Current Vancomycin Dosing Regimen: 1500 Vancomycin Monitoring using AUC goal of 400 - 600 range with trough as surrogate marker: 472 Date and Time for next Vancomycin Level to be drawn: 04/29 1100 Pharmacist Comments on Vancomycin Plan: Vancomycin dosing will take advantage of Ch[employer] as a clinical decision support tool that uses Bayesian modeling to calculate individual patient's pharmacokinetic parameters and forecast the patient's drug concentration time course with the target goal AUC 24 range of 400 - 600 mg/L/hr.
--- NOTE | 2022-04-27 14:03 | HO.PM.IMPN ---
Subjective Subjective Date of Service: 04/27/22 Interval History: The patient was seen and evaluated this morning Laying in bed, feels comfortable overall, more alert and interactive spiked fever last night, cultures drawn at time Denies any suicidal or homocidal thoughts No reported other overnight events. Systemic review: No fever, chills but reports generalized weakness No chest pain, palpitation No shortness of breath or coughing No abdominal pain, nausea or vomiting No urinary symptoms No any rash or wounds lower extremities tingling and weakness Physical Exam Vital Signs: Vital Signs: Last Vital Signs Temp 98.2 F 04/27/22 11:22 Pulse 112 H 04/27/22 11:22 Resp 20 04/27/22 11:22 BP 116/55 L 04/27/22 11:22 Pulse Ox 91 L 04/27/22 11:22 O2 Del Method 04/27/22 11:22 O2 Flow Rate 3 04/25/22 11:00 FiO2 30 04/24/22 10:00 BMI result Body Mass Index 25.1 Const: Other: Constitutional : Alert, interactive but sleepy, not in distress Neck : Normal inspection, Supple Cardiovascular : RRR, no JVP, no lower extremity edema Respiratory : fair bilateral air entry, no crackles, wheezes or rhonchi Gastrointestinal: soft, lax, Normal bowel sounds, Non tender Skin : Warm, Dry Neurological : Alert & oriented x3, No focal deficit Objective Data Active Medications Acetaminophen (Acetaminophen 325 Mg Tablet) 650 mg PO Q8H PRN PRN Reason: Fever Last Admin: 04/26/22 20:05 Dose: 650 mg Documented By: AMANDA Baclofen (Baclofen 10 Mg Tablet) 10 mg PO DAILY [facility] Last Admin: 04/27/22 08:44 Dose: 10 mg Documented By: CRISTOPHER Fluoxetine HCl (Fluoxetine Hcl 20 Mg Capsule) 40 mg PO DAILY [facility] Last Admin: 04/27/22 08:43 Dose: 40 mg Documented By: CRISTOPHER Gabapentin (Gabapentin 600 Mg Tablet) 600 mg PO TID [facility] Last Admin: 04/27/22 08:44 Dose: 600 mg Documented By: CRISTOPHER Heparin Sodium (Porcine) (Heparin Sodium,Porcine 5,000 Unit/Ml Vial) 5,000 unit SUBCUT Q8H [facility] Last Admin: 04/27/22 08:44 Dose: 5,000 unit Documented By: CRISTOPHER Hydrochlorothiazide (Hydrochlorothiazide 12.5 Mg Tablet) 12.5 mg PO DAILY [facility] Last Admin: 04/27/22 08:44 Dose: 12.5 mg Documented By: CRISTOPHER Vancomycin HCl 1,000 mg/Vancomycin HCl 750 mg/ Sodium Chloride 535 mls @ 267.5 mls/hr IV ONCE ONE Stop: 04/27/22 14:59 Vancomycin HCl 1,500 mg/ (Sodium Chloride) 500 mls @ 333.333 mls/hr IV Q24H [facility] Insulin Human Lispro (Insulin Lispro 100 Unit/Ml 3 Ml Vial) 0 unit SUBCUT QIDACHS [facility]; Protocol Last Admin: 04/27/22 12:17 Dose: 2 unit Documented By: CRISTOPHER Lamotrigine (Lamotrigine 25 Mg Tablet) 50 mg PO BID [facility] Last Admin: 04/27/22 08:44 Dose: 50 mg Documented By: CRISTOPHER Lisinopril (Lisinopril 20 Mg Tablet) 20 mg PO DAILY [facility] Last Admin: 04/27/22 08:44 Dose: 20 mg Documented By: CRISTOPHER Methadone HCl (Methadone Hcl 20 Mg/2 Ml Oral.Conc) 107 mg PO DAILY [facility] Last Admin: 04/27/22 08:43 Dose: 107 mg Documented By: CRISTOPHER Omeprazole (Omeprazole 20 Mg Capsule.Dr) 20 mg PO DAILY@0630 [facility] Last Admin: 04/27/22 08:46 Dose: 20 mg Documented By: CRISTOPHER Pharmacy Consult (Consult Rx Perform Med Rec) 1 each MISCELLANE ONCE PRN PRN Reason: Consult order Pharmacy Consult (Consult Rx Vancomycin Dosing) 1 each MISCELLANE DAILY PRN PRN Reason: Consult order Labs CBC & Chem 7: 04/27/22 08:40 04/27/22 08:40 Labs: Laboratory Results - last 24 hr 04/26/22 04/26/22 04/26/22 15:25 19:59 20:18 MCV MCH MCHC RDW Plt Count MPV Absolute Nucleated RBC Nucleated RBC % (auto) Anion Gap Estim Creat Clear Calc Estimated GFR POC Glucose 163 H 201 H Random Glucose Lactic Acid 1.1 Calcium COVID-19 ([facility]) COVID-19 Clin Com 04/26/22 04/27/22 04/27/22 20:18 08:29 08:40 MCV 87.9 MCH 28.7 MCHC 32.7 RDW 13.6 Plt Count 254 MPV 10.7 Absolute Nucleated RBC 0.000 Nucleated RBC % (auto) 0.0 Anion Gap Estim Creat Clear Calc Estimated GFR POC Glucose 352 H* Random Glucose Lactic Acid Calcium COVID-19 ([facility]) Negative COVID-19 Clin Com See Note 04/27/22 04/27/22 08:40 10:59 MCV MCH MCHC RDW Plt Count MPV Absolute Nucleated RBC Nucleated RBC % (auto) Anion Gap 19 Estim Creat Clear Calc 67.7 Estimated GFR > 60 POC Glucose 165 H Random Glucose 271 H Lactic Acid Calcium 9.5 COVID-19 ([facility]) COVID-19 Clin Com Microbiology Microbiology Results: Microbiology 04/26/22 20:18 Blood Culture - Preliminary Blood - Venous Prelim: GPC Gram Stain only 04/26/22 20:18 Blood Culture - Preliminary Blood - Venous Prelim: GPC Gram Stain only Assessment and Plan (1) Sepsis: Status: Acute (2) Positive blood culture: Status: Acute Plan 56 years old w PMH of drug abuse, DMII, CKD, neuropathy, HTN who presenteed to the hospital with agitation and delirium 2/2 drug abuse requiting intubation and ventilation in ICU complicated by PAPO and Rhabdo. extubated 04/24. Sepsis 2/2 Gram positive bacteremia Leukocytosis, tachycardia and positive BCx no clear source of infection, XR negative, check UA start Vancomycin repeat cultures get ID eval PAPO on CKD stage 3 2/2 Rhabdomyolysis CR improved to normal seems to be related to rhabdo and meds restart lisinopril and HCT monitor output and BP Toxic metabolic encephalopathy 2/2 drug intoxication, delerium improving, A\O x3 increase pysical activity and do PT avoid meds that might alter her mentation Acute respiratory failure resolved, on room air Drug abuse and intoxication advixed complete abstensce from drugs addiction team to follow type 2 DM SSI, lantus diabetic diet HTN Continue home meds DVT PPx Lovenox Patient will need overnight hospital stay for monitoring of sepsis pending finalizing blood culture for safe discharge plan Quality Stroke Does the patient have a stroke diagnosis?: No VTE Prior VTE?: No VTE Risk Level:: Medical - moderate - high VTE Device Contraindication: N/A - Device Ordered VTE Drug Contraindication: Treatment Not Indicated
[2022-04-27] MEDS: vancomycin HCL 1,000 MG, vancomycin HCL 750 MG in 0.9 % Sodium Chloride 500 ML 267.5 MG IV (15:18)
[2022-04-27 16:16] LABS: Glucose, Whole Blood 346 mg/dL (60-115)
[2022-04-27 20:04] LABS: Glucose, Whole Blood 201 mg/dL (60-115)
[2022-04-28] MEDS: Heparin Sodium,Porcine 5,000 UNIT/ML VIAL 5000 UNIT SUBCUT ×4 (00:25→23:23)
[2022-04-28 04:00] VITALS: BP 120/63; PULSE 81; RESP 19; TEMP 37.3; O2SAT 97
[2022-04-28] MEDS: Omeprazole 20 MG CAPSULE.DR PO (06:05)
[2022-04-28 06:25] LABS: Hematocrit 29.1 % (37.0-47.0); Hemoglobin 9.3 g/dl (12.0-16.0); Mean Corpuscular Hemoglobin 28.4 pg (27.0-33.0); Mean Platelet Volume 10.8 fL (9.4-12.3); Platelet Count 196 X10*3/uL (160-400); Red Blood Count 3.27 X10*6/uL (4.20-5.50); White Blood Count 7.8 X10*3/uL (4.8-10.8)
[2022-04-28 06:38] LABS: Anion Gap 16 (12-20); Blood Urea Nitrogen 39 mg/dL (9-16); Calcium 9.2 mg/dL (8.4-10.2); Carbon Dioxide 26 mmol/L (22-29); Chloride 96 mmol/L (96-108); Creatinine Clr Calc Pharmacy 42.2; Estimated Glomerular Filt Rate 39; Glucose Random 253 mg/dL (60-115); Potassium 3.6 mmol/L (3.3-5.1); Sodium 134 mmol/L (135-145)
--- NOTE | 2022-04-28 07:00 | CA_ITS ---
Transthoracic Echocardiogram Patient (Last, First, Middle): Blank Rosas, Gender: Female Date of : 1965 Age: 56 Procedure Date: 04/28/2022 Procedure Type: Transthoracic Echocardiogram Location: [facility] [place] Height: 162.56 cm Weight: 66.23 kg BSA: 1.71 m2 Heart Rate: bpm BP: 116 / 90 mmHg Lens Block Gauger: COLLEEN Referring MD: Dean Finney MD Willower: Lanre Boo MD Symptoms: Staph. Aureus bacteremia Study Quality: Fair ECG Rhythm: Sinus Conclusions: - 1. No obvious vegetations seen on this study 2. Normal LV systolic function with impaired relaxation filling pattern 3. Normal cardiac valvular Doppler 4. No gross pericardial effusion Findings Left Ventricle Normal left ventricular size, thickness, and systolic function. The visually estimated ejection fraction is between 60-65%. Spectral Doppler is indicative of an impaired relaxation filling pattern. E/E prime ratio is between 8 and 15 consistent with indeterminate filling pressures. Right Ventricle Normal right ventricular cavity size and systolic function. Atria Both atria are normal in size. Interatrial shunt cannot be excluded. Aortic Valve There is mild calcification of the aortic valve. There is no aortic valve stenosis. There is no aortic valve regurgitation. Mitral Valve There is mild anterior and posterior mitral leaflet thickening. There is trace mitral valve regurgitation. There is no mitral valve stenosis. Pulmonic Valve The pulmonic valve was not well visualized. Tricuspid Valve Normal right atrial pressure. Great Vessels All visible segments of the aorta are normal in size. The pulmonary artery was not well visualized. Venous The inferior vena cava is normal in size and collapses greater than 50% with inspiration. Pericardium/Pleural There is no evidence of pericardial effusion. Prior Study Comparison No prior study available for comparison. Recommendations, Care & Conclusions Consider a DANETTE if clinically appropriate. Measurements 2D Linear Measurements IVSd: 1.03 0.6-0.9/0.6-1.0 cm LVIDd: 4.21 3.9-5.3/4.2-5.9 cm LVIDd Index: 2.46 2.4-3.2/2.2-3.1 cm/m2 LVIDs: 2.21 2.0-3.6 cm LVPWd: 1.02 0.7-1.1 cm LA Diam: 2.80 2.7-3.8/3.0-4.0 cm LAIDs Index: 1.64 1.5-2.3 cm/m2 LV Mass: 177.52 67-162/88-224 g LV Mass Index: 103.82 43-95/49-115 g/m2 LVOT Diam: 1.90 3.0+(-)1.3 cm 2D Systolic Function EF 4C: 63.20 >55% EF 2C: 65.90 >55% EF BiP: 64.50 >55% Mitral Valve MV Pk E: 0.88 MV PK A: 1.19 MV Decel Time: 312.00 E/A: 0.70 E'Lateral: 6.31 E'Medial: 5.98 E/E' Med: 14.60 E/E' Lat: 13.90 PHT: 91.00 MVA PHT: 2.42 Decel [place]: 2.81 Aortic Valve AoV Pk Miko: 1.46 AoV Mn Miko: 0.98 AoV VTI: 0.34 AoV Pk Grad: 9.00 Aov Mn Grad: 5.00 GEOFFREY Cont.VTI: 2.13 LVOT LVOT Pk Miko: 1.22 LVOT Mn Miko: 0.82 LVOT VTI: 0.25 LVOT Pk Grad: 6.00 LVOT Mn Grad: 3.00 LVOT Diam: 1.90 LVOT Area: 2.84 Diastolic Function MV Pk E: 0.88 MV Pk A: 1.19 E/A: 0.70 E'Medial: 5.98 E/E' Med: 14.60 E' Laterial: 6.31 E/E' Lat: 13.90 Right Ventricle TAPSE (mm): 22.00 TVS' Miko: 11.20 Tricuspid Valve RA Press: 3.00 Great Vessels Aorta Sinus of Valsalva: 3.25 2.0-3.[address] [place]: 2.74 1.7-3.4 cm Ao Asc: 3.00 2.1-3.4 cm Updated in Other Vendor System with Status of Final Lanre Boo MD electronically signed on 04/28/2022 4:32:04 PM with status of Final
[2022-04-28 07:06] VITALS: BP 124/63; PULSE 74; RESP 18; TEMP 36.2; O2SAT 94
[2022-04-28 08:10] LABS: Glucose, Whole Blood 211 mg/dL (60-115)
[2022-04-28] MEDS: Insulin Lispro 100 UNIT/ML 3 ML VIAL SUBCUT ×4 (08:32→21:15)
[2022-04-28] MEDS: lamoTRIgine 25 MG TABLET PO ×2 (08:33→21:15)
[2022-04-28] MEDS: Gabapentin 600 MG TABLET PO ×3 (08:33→21:14)
[2022-04-28] MEDS: Baclofen 10 MG TABLET PO (08:33)
[2022-04-28] MEDS: methADONE HCl 20 MG/2 ML ORAL.CONC 107 MG PO (08:33)
[2022-04-28] MEDS: FLUoxetine HCl 20 MG CAPSULE 40 MG PO (08:33)
--- NOTE | 2022-04-28 09:38 | P.CDIC_ITS ---
CDI Concurrent Query Documentation Clarification: PHYSICIAN'S DOCUMENTATION REQUEST Date of Query: 04/28/22 0939 Patient Name: Blank Rosas I Admit Date: 04/19/22 Dear Doctor, A review of the medical record indicates additional documentation may be needed. Please review below and update the documentation accordingly. Clinical Indicators: Beginning on 04/21, provider notes indicate a diagnosis of acute respiratory failure. Is there further specificity that correlates with the findings below: Risk Factors/Clinical Indicators/Treatments POA/RESOLVED/TREAT Per provider notes: - requiring intubation and ventilatory s upport for high-dose sedative drips - Acute respiratory failure requiring ve ntilatory support, extubated 04/24/2022 - with acute delirium and agitation incl uding self-harm (banging head on the floor/bed) Other Indicators: -Respiratory rate 04/23: 22 -Respiratory rate 04/24: 28 Recognized standard criteria for respiratory failure includes: (Source: [facility] Apr/May 2013) Symptoms: ? Tachypnea, SOB, dyspnea ? Pallor or cyanosis ? Anxiety or restlessness ? Use of accessory muscles ? Retractions (grunting in newborns) ? Unable to speak in complete sentences Clarify which of the following accurately represents the patient's respiratory status: Please include type of respiratory failure if known: * Hypoxic * Hypercapnic * Hypoxic and hypercapnic * Unable to determine Use of terms such as suspected, likely, concern for, or probable (associated with a specific diagnosis that is being evaluated, monitored, or treated as if it exists) are acceptable and can be coded in the inpatient setting, when d ocumented at the time of discharge. Thank you, Alexus Hua MS, RN, CCRN Extension: [phone] Please use your independent medical judgment in providing your response. THIS QUERY IS PART OF THE PERMANENT MEDICAL RECORD Provider Response: Other Other Diagnosis: with hypoxia
--- NOTE | 2022-04-28 11:32 | MHC.CM.PN ---
Per ROUNDS discussion, Patient is not yet medically cleared for dc (BC pending); home/resume services is the goal and CM will continue to follow.
[2022-04-28 11:38] LABS: Glucose, Whole Blood 255 mg/dL (60-115)
[2022-04-28 11:58] VITALS: BP 116/90; PULSE 83; RESP 16; TEMP 37.2; O2SAT 93
[2022-04-28] MEDS: polyethylene glycoL 3350 17 GM POWD.PACK PO (12:02)
[2022-04-28 13:24] LABS: Vancomycin Random 11.6 mcg/mL (15-20)
--- NOTE | 2022-04-28 15:38 | P.PNIM_ITS ---
Subjective Subjective Date of Service: 04/28/22 Interval History: The patient was seen and evaluated this morning Laying in bed, feels comfortable overall, more alert and interactive spiked fever last night, cultures drawn at time Denies any suicidal or homocidal thoughts No reported other overnight events. Systemic review: No fever, chills but reports generalized weakness No chest pain, palpitation No shortness of breath or coughing No abdominal pain, nausea or vomiting No urinary symptoms No any rash or wounds lower extremities tingling and weakness Physical Exam Vital Signs: Vital Signs: Last Vital Signs Temp 99.0 F 04/28/22 11:58 Pulse 83 04/28/22 11:58 Resp 16 04/28/22 11:58 BP 116/90 H 04/28/22 11:58 Pulse Ox 93 04/28/22 11:58 O2 Del Method 04/28/22 11:58 O2 Flow Rate 3 04/28/22 07:06 FiO2 30 04/24/22 10:00 BMI result Body Mass Index 25.1 Const: Other: Constitutional : Alert, interactive but sleepy, not in distress Neck : Normal inspection, Supple Cardiovascular : RRR, no JVP, no lower extremity edema Respiratory : fair bilateral air entry, no crackles, wheezes or rhonchi Gastrointestinal: soft, lax, Normal bowel sounds, Non tender Skin : Warm, Dry Neurological : Alert & oriented x3, No focal deficit Objective Data Active Medications Acetaminophen (Acetaminophen 325 Mg Tablet) 650 mg PO Q8H PRN PRN Reason: Fever Last Admin: 04/26/22 20:05 Dose: 650 mg Documented By: AMANDA Baclofen (Baclofen 10 Mg Tablet) 10 mg PO DAILY [facility] Last Admin: 04/28/22 08:33 Dose: 10 mg Documented By: ZOHAIB Fluoxetine HCl (Fluoxetine Hcl 20 Mg Capsule) 40 mg PO DAILY [facility] Last Admin: 04/28/22 08:33 Dose: 40 mg Documented By: ZOHAIB Gabapentin (Gabapentin 600 Mg Tablet) 600 mg PO TID [facility] Last Admin: 04/28/22 08:33 Dose: 600 mg Documented By: ZOHAIB Heparin Sodium (Porcine) (Heparin Sodium,Porcine 5,000 Unit/Ml Vial) 5,000 unit SUBCUT Q8H [facility] Last Admin: 04/28/22 08:33 Dose: 5,000 unit Documented By: ZOHAIB Hydrochlorothiazide (Hydrochlorothiazide 12.5 Mg Tablet) 12.5 mg PO DAILY [facility] Last Admin: 04/27/22 08:44 Dose: 12.5 mg Documented By: CRISTOPHER Insulin Human Lispro (Insulin Lispro 100 Unit/Ml 3 Ml Vial) 0 unit SUBCUT QIDACHS [facility]; Protocol Last Admin: 04/28/22 12:01 Dose: 6 unit Documented By: ZOHAIB Lamotrigine (Lamotrigine 25 Mg Tablet) 25 mg PO BID [facility] Last Admin: 04/28/22 08:33 Dose: 25 mg Documented By: ZOHAIB Lisinopril (Lisinopril 20 Mg Tablet) 20 mg PO DAILY [facility] Last Admin: 04/27/22 08:44 Dose: 20 mg Documented By: CRISTOPHER Methadone HCl (Methadone Hcl 20 Mg/2 Ml Oral.Conc) 107 mg PO DAILY [facility] Last Admin: 04/28/22 08:33 Dose: 107 mg Documented By: ZOHAIB Omeprazole (Omeprazole 20 Mg Capsule.Dr) 20 mg PO DAILY@0630 [facility] Last Admin: 04/28/22 06:05 Dose: 20 mg Documented By: ELLA Pharmacy Consult (Consult Rx Perform Med Rec) 1 each MISCELLANE ONCE PRN PRN Reason: Consult order Pharmacy Consult (Consult Rx Vancomycin Dosing) 1 each MISCELLANE DAILY PRN PRN Reason: Consult order Polyethylene Glycol (Polyethylene Glycol 3350 17 Gm Powd.Pack) 17 gm PO DAILY [facility] Last Admin: 04/28/22 12:02 Dose: 17 gm Documented By: ZOHAIB Labs CBC & Chem 7: 04/28/22 06:00 04/28/22 06:00 Labs: Laboratory Results - last 24 hr 04/27/22 04/27/22 04/28/22 16:11 20:01 06:00 MCV 89.0 MCH 28.4 MCHC 32.0 RDW 14.0 Plt Count 196 MPV 10.8 Absolute Nucleated RBC 0.000 Nucleated RBC % (auto) 0.0 Anion Gap Estim Creat Clear Calc Estimated GFR POC Glucose 346 H 201 H Random Glucose Calcium Random Vancomycin 04/28/22 04/28/22 04/28/22 06:00 07:05 11:34 MCV MCH MCHC RDW Plt Count MPV Absolute Nucleated RBC Nucleated RBC % (auto) Anion Gap 16 Estim Creat Clear Calc 42.2 Estimated GFR 39 POC Glucose 211 H 255 H Random Glucose 253 H Calcium 9.2 Random Vancomycin 04/28/22 12:31 MCV MCH MCHC RDW Plt Count MPV Absolute Nucleated RBC Nucleated RBC % (auto) Anion Gap Estim Creat Clear Calc Estimated GFR POC Glucose Random Glucose Calcium Random Vancomycin 11.6 L Microbiology Microbiology Results: Microbiology 04/27/22 20:00 Blood Culture - Preliminary Blood - Venous Prelim: GPC Gram Stain only 04/26/22 20:18 Blood Culture - Preliminary Blood - Venous Staphylococcus aureus 04/26/22 20:18 Blood Culture - Preliminary Blood - Venous Staphylococcus aureus Assessment and Plan (1) Positive blood culture: Status: Acute (2) Sepsis: Status: Acute (3) Acute kidney injury: Status: Acute Plan 56 years old w PMH of drug abuse, DMII, CKD, neuropathy, HTN who presenteed to the hospital with agitation and delirium 2/2 drug abuse requiting intubation and ventilation in ICU complicated by PAPO and Rhabdo. extubated 04/24. Sepsis 2/2 staph aureus bacteremia Leukocytosis, tachycardia and positive BCx no clear source of infection, XR negative, check UA Check Echo Continue Vancomycin repeat cultures pending ID eval PAPO on CKD stage 3 2/2 Rhabdomyolysis at admission, resolved now Cr up to 1.4, could be related to Vancomycin, BP meds Hold nephrotoxic meds Vancomycin level 11 only follow BMP Toxic metabolic encephalopathy 2/2 drug intoxication, delerium resolved increase pysical activity and do PT avoid meds that might alter her mentation Acute hypoxic respiratory failure resolved, on room air Drug abuse and intoxication advixed complete abstensce from drugs addiction team to follow type 2 DM SSI, lantus diabetic diet HTN Continue home meds DVT PPx Lovenox Patient will need overnight hospital stay for monitoring of sepsis pending finalizing blood culture for safe discharge plan Quality Stroke Does the patient have a stroke diagnosis?: No VTE Prior VTE?: No VTE Risk Level:: Medical - moderate - high VTE Device Contraindication: N/A - Device Ordered VTE Drug Contraindication: Treatment Not Indicated
[2022-04-28 15:42] VITALS: BP 117/57; PULSE 67; RESP 16; TEMP 36.7; O2SAT 99
--- NOTE | 2022-04-28 16:13 | MHC.RECOVRN ---
This health technical writer went to meet w/ pt, pt was not in room, upon return to check in, pt was meeting w/ family in room.
[2022-04-28 16:44] LABS: Glucose, Whole Blood 202 mg/dL (60-115)
[2022-04-28 18:33] LABS: Creatinine Clr Calc Pharmacy 49.6; Estimated Glomerular Filt Rate 47
--- NOTE | 2022-04-28 18:42 | HE.PHANOTE ---
Vancomycin Dosing Addendum Patients level came back today at 11.6 mg/L, this was just with a 1750 mg load, no other doses. This is because patient developed PAPO after loading dose. Dr Finney dc'd order and received a random level to see how patients clearing is. Patients level is below goal, Dr confirmed continue vancomycin. Because of patients previous PAPO, I chose to start low. Patient is below 65 years old so we can do Q12H dosing. Starting with low dose of 500 mg. Predicted AUC 418 mg/L/hr. Next drawn to be done 04/30 @0600
[2022-04-28 19:45] VITALS: BP 126/59; PULSE 73; RESP 16; TEMP 36.1; O2SAT 94
[2022-04-28 20:21] LABS: Glucose, Whole Blood 186 mg/dL (60-115)
[2022-04-28] MEDS: vancomycin HCL 500 MG in 0.9 % Sodium Chloride 100 ML 110 MG IV (21:15)
[2022-04-28] MEDS: Acetaminophen 325 MG TABLET 650 MG PO (23:22)
[2022-04-29] VITALS (7 sets, daily range): BP systolic 125–167; BP diastolic 55–86; PULSE 72–84; RESP 14–20; TEMP 36.1–37.2; O2SAT 93–98
[2022-04-29] MEDS: Omeprazole 20 MG CAPSULE.DR PO (05:43)
[2022-04-29 06:39] LABS: Hematocrit 27.7 % (37.0-47.0); Mean Corpuscular HGB Conc 32.5 g/dl (31.0-35.0); Mean Corpuscular Hemoglobin 29.1 pg (27.0-33.0); Mean Corpuscular Volume 89.6 fL (80.0-98.0); Mean Platelet Volume 11.3 fL (9.4-12.3); Platelet Count 202 X10*3/uL (160-400); Red Blood Count 3.09 X10*6/uL (4.20-5.50); Red Cell Distribution Width 14.1 % (11.0-16.0); White Blood Count 5.5 X10*3/uL (4.8-10.8)
[2022-04-29 06:53] LABS: Creatinine Clr Calc Pharmacy 59.6; Estimated Glomerular Filt Rate 58
[2022-04-29 06:56] LABS: Anion Gap 16 (12-20); Blood Urea Nitrogen 33 mg/dL (9-16); Calcium 9.1 mg/dL (8.4-10.2); Carbon Dioxide 25 mmol/L (22-29); Chloride 98 mmol/L (96-108); Creatinine Clr Calc Pharmacy 60.2; Estimated Glomerular Filt Rate 58; Glucose Random 357 mg/dL (60-115); Potassium 3.7 mmol/L (3.3-5.1); Sodium 135 mmol/L (135-145)
[2022-04-29 07:32] LABS: Glucose, Whole Blood 345 mg/dL (60-115)
[2022-04-29] MEDS: Insulin Lispro 100 UNIT/ML 3 ML VIAL SUBCUT ×3 (07:40→21:15)
[2022-04-29] MEDS: vancomycin HCL 500 MG in 0.9 % Sodium Chloride 100 ML 110 MG IV (07:40)
[2022-04-29] MEDS: Morphine Sulfate 2 MG/ML CARTRIDGE IVPUSH (08:49)
[2022-04-29] MEDS: Insulin Glargine,Hum.rec.anlog 100 UNIT/ML 10 ML VIAL 10 UNIT SUBCUT ×2 (08:49→21:16)
[2022-04-29] MEDS: bisacodyL 5 MG TABLET.DR PO (08:50)
--- NOTE | 2022-04-29 08:59 | HE.PHANOTE ---
VANCO DOSE ADJUSTMENT TROUGH TONIGHT AT 2000. DOSE MAY BE INCREASED BASED ON TROUGH
[2022-04-29 09:27] LABS: Appearance Urine Clear; Color Urine Yellow; Glucose Urine UA >=1000 mg/dL (Negative); Leukocyte Esterase Urine Negative (Negative); Nitrite Urine Negative (Negative); Specific Gravity - Urine 1.015 (1.005-1.025); UMIC TRIGGER UA YES; Urine Blood Negative (Negative); Urine Ketones Negative (Negative); Urine Protein 100 (2+) mg/dL (Neg-Trace)
[2022-04-29 09:32] LABS: Bacteria Urine None Seen (None Seen); Hyaline Casts Urine 0-2 /LPF (0-2); RBC Urine 0-2 /HPF (0-2); Squamous Epithelial Cell Urine 0-2 /HPF (0-2); WBC Urine 0-5 /HPF (0-5)
[2022-04-29 09:52] LABS: Creatinine Urine 32.45 mg/dL
[2022-04-29] MEDS: methADONE HCl 20 MG/2 ML ORAL.CONC 107 MG PO (10:17)
[2022-04-29 10:20] LABS: EOS Counted 0 CELLS; EOS QC POS YES; EOS Stain Quality OK YES; WBC, Counted 2 CELLS
[2022-04-29] MEDS: polyethylene glycoL 3350 17 GM POWD.PACK PO (10:20)
[2022-04-29] MEDS: Heparin Sodium,Porcine 5,000 UNIT/ML VIAL 5000 UNIT SUBCUT ×3 (10:20→23:45)
[2022-04-29] MEDS: Docusate Sodium 100 MG CAPSULE PO ×2 (10:22→21:15)
[2022-04-29] MEDS: Baclofen 10 MG TABLET PO (10:23)
[2022-04-29] MEDS: FLUoxetine HCl 20 MG CAPSULE 40 MG PO (10:23)
[2022-04-29] MEDS: Gabapentin 600 MG TABLET PO ×3 (10:23→21:15)
[2022-04-29] MEDS: lamoTRIgine 25 MG TABLET PO ×2 (10:23→21:15)
[2022-04-29 11:07] LABS: Glucose, Whole Blood 247 mg/dL (60-115)
--- NOTE | 2022-04-29 12:26 | P.PNIM_ITS ---
Subjective Subjective Date of Service: 04/29/22 Interval History: The patient was seen and evaluated this morning Complaining of abdominal pain, no bowel movement yet Cultures growing MSSA No reported other overnight events. Systemic review: No fever, chills but reports generalized weakness No chest pain, palpitation No shortness of breath or coughing No abdominal pain, nausea or vomiting No urinary symptoms No any rash or wounds lower extremities tingling and weakness Physical Exam Vital Signs: Vital Signs: Last Vital Signs Temp 98.1 F 04/29/22 10:53 Pulse 72 04/29/22 10:53 Resp 20 04/29/22 10:53 BP 167/71 H 04/29/22 10:53 Pulse Ox 95 04/29/22 10:53 O2 Del Method 04/29/22 10:53 O2 Flow Rate 3 04/28/22 15:42 FiO2 30 04/24/22 10:00 BMI result Body Mass Index 25.1 Const: Other: Constitutional : Alert, interactive but sleepy, not in distress Neck : Normal inspection, Supple Cardiovascular : RRR, no JVP, no lower extremity edema Respiratory : fair bilateral air entry, no crackles, wheezes or rhonchi Gastrointestinal: soft, lax, Normal bowel sounds, mild suprapubic left lower quadrant tenderness with no surgical signs Skin : Warm, Dry Neurological : Alert & oriented x3, No focal deficit Objective Data Active Medications Acetaminophen (Acetaminophen 325 Mg Tablet) 650 mg PO Q8H PRN PRN Reason: Fever Last Admin: 04/28/22 23:22 Dose: 650 mg Documented By: MICK Baclofen (Baclofen 10 Mg Tablet) 10 mg PO DAILY [facility] Last Admin: 04/29/22 10:23 Dose: 10 mg Documented By: MIGUEL ANGEL Docusate Sodium (Docusate Sodium 100 Mg Capsule) 100 mg PO BID [facility] Last Admin: 04/29/22 10:22 Dose: 100 mg Documented By: MIGUEL ANGEL Fluoxetine HCl (Fluoxetine Hcl 20 Mg Capsule) 40 mg PO DAILY [facility] Last Admin: 04/29/22 10:23 Dose: 40 mg Documented By: MIGUEL ANGEL Gabapentin (Gabapentin 600 Mg Tablet) 600 mg PO TID [facility] Last Admin: 04/29/22 10:23 Dose: 600 mg Documented By: MIGUEL ANGEL Heparin Sodium (Porcine) (Heparin Sodium,Porcine 5,000 Unit/Ml Vial) 5,000 unit SUBCUT Q8H [facility] Last Admin: 04/29/22 10:20 Dose: 5,000 unit Documented By: MIGUEL ANGEL Hydrochlorothiazide (Hydrochlorothiazide 12.5 Mg Tablet) 12.5 mg PO DAILY [facility] Last Admin: 04/27/22 08:44 Dose: 12.5 mg Documented By: CRISTOPHER Vancomycin HCl 500 mg/ Sodium (Chloride) 110 mls @ 110 mls/hr IV Q12H [facility] Last Infusion: 04/29/22 09:07 Dose: 0 mls/hr Documented By: ZOHAIB Insulin Glargine (Insulin Glargine,Hum.Rec.Anlog 100 Unit/Ml 10 Ml Vial) 10 unit SUBCUT BEDTIME [facility] Insulin Human Lispro (Insulin Lispro 100 Unit/Ml 3 Ml Vial) 0 unit SUBCUT QIDACHS [facility]; Protocol Last Admin: 04/29/22 11:50 Dose: 4 unit Documented By: ZOHAIB Lamotrigine (Lamotrigine 25 Mg Tablet) 25 mg PO BID [facility] Last Admin: 04/29/22 10:23 Dose: 25 mg Documented By: MIGUEL ANGEL Lisinopril (Lisinopril 20 Mg Tablet) 20 mg PO DAILY [facility] Last Admin: 04/27/22 08:44 Dose: 20 mg Documented By: CRISTOPHER Methadone HCl (Methadone Hcl 20 Mg/2 Ml Oral.Conc) 107 mg PO DAILY [facility] Last Admin: 04/29/22 10:17 Dose: 107 mg Documented By: MIGUEL ANGEL Omeprazole (Omeprazole 20 Mg Capsule.Dr) 20 mg PO DAILY@0630 [facility] Last Admin: 04/29/22 05:43 Dose: 20 mg Documented By: MICK Pharmacy Consult (Consult Rx Perform Med Rec) 1 each MISCELLANE ONCE PRN PRN Reason: Consult order Pharmacy Consult (Consult Rx Vancomycin Dosing) 1 each MISCELLANE DAILY PRN PRN Reason: Consult order Pharmacy Consult (Consult Rx Vancomycin Dosing) 1 each MISCELLANE DAILY PRN PRN Reason: Consult order Polyethylene Glycol (Polyethylene Glycol 3350 17 Gm Powd.Pack) 17 gm PO DAILY [facility] Last Admin: 04/29/22 10:20 Dose: 17 gm Documented By: MIGUEL ANGEL Labs CBC & Chem 7: 04/29/22 06:01 04/29/22 06:01 Labs: Laboratory Results - last 24 hr 04/28/22 04/28/22 04/28/22 12:31 16:29 18:01 MCV MCH MCHC RDW Plt Count MPV Absolute Nucleated RBC Nucleated RBC % (auto) Anion Gap Estim Creat Clear Calc 49.6 Estimated GFR 47 POC Glucose 202 H Random Glucose Calcium Urine Color Urine Appearance Urine pH Ur Specific [place] Urine Protein Urine Glucose (UA) Urine Ketones Urine Blood Urine Nitrite Ur Leukocyte Esterase Urine RBC Urine WBC Ur Squamous Epith Cells Urine Bacteria Hyaline Casts Urine Eosinophils % Ur Random Sodium Urine Creatinine Random Vancomycin 11.6 L 04/28/22 04/29/22 04/29/22 19:47 06:01 06:01 MCV 89.6 MCH 29.1 MCHC 32.5 RDW 14.1 Plt Count 202 MPV 11.3 Absolute Nucleated RBC 0.000 Nucleated RBC % (auto) 0.0 Anion Gap 16 Estim Creat Clear Calc 60.2 Estimated GFR 58 POC Glucose 186 H Random Glucose 357 H* Calcium 9.1 Urine Color Urine Appearance Urine pH Ur Specific [place] Urine Protein Urine Glucose (UA) Urine Ketones Urine Blood Urine Nitrite Ur Leukocyte Esterase Urine RBC Urine WBC Ur Squamous Epith Cells Urine Bacteria Hyaline Casts Urine Eosinophils % Ur Random Sodium Urine Creatinine Random Vancomycin 04/29/22 04/29/22 04/29/22 06:01 07:21 09:00 MCV MCH MCHC RDW Plt Count MPV Absolute Nucleated RBC Nucleated RBC % (auto) Anion Gap Estim Creat Clear Calc 59.6 Estimated GFR 58 POC Glucose 345 H Random Glucose Calcium Urine Color Yellow Urine Appearance Clear Urine pH 7.0 Ur Specific [place] 1.015 Urine Protein 100 (2+) H Urine Glucose (UA) >=1000 H Urine Ketones Negative Urine Blood Negative Urine Nitrite Negative Ur Leukocyte Esterase Negative Urine RBC 0-2 Urine WBC 0-5 Ur Squamous Epith Cells 0-2 Urine Bacteria None Seen Hyaline Casts 0-2 Urine Eosinophils % 0.0 Ur Random Sodium Urine Creatinine Random Vancomycin 04/29/22 04/29/22 09:00 10:55 MCV MCH MCHC RDW Plt Count MPV Absolute Nucleated RBC Nucleated RBC % (auto) Anion Gap Estim Creat Clear Calc Estimated GFR POC Glucose 247 H Random Glucose Calcium Urine Color Urine Appearance Urine pH Ur Specific [place] Urine Protein Urine Glucose (UA) Urine Ketones Urine Blood Urine Nitrite Ur Leukocyte Esterase Urine RBC Urine WBC Ur Squamous Epith Cells Urine Bacteria Hyaline Casts Urine Eosinophils % Ur Random Sodium 76.0 Urine Creatinine 32.45 Random Vancomycin Microbiology Microbiology Results: Microbiology 04/27/22 20:00 Blood Culture - Final Blood - Venous Staphylococcus aureus 04/27/22 20:00 Blood Culture - Final Blood - Venous Staphylococcus aureus 04/26/22 20:18 Blood Culture - Final Blood - Venous Staphylococcus aureus 04/26/22 20:18 Blood Culture - Final Blood - Venous Staphylococcus aureus Assessment and Plan (1) MSSA bacteremia: Status: Acute (2) Acute kidney injury: Status: Acute (3) Acute respiratory failure: Status: Acute (4) Sepsis: Status: Acute Plan 56 years old w PMH of drug abuse, DMII, CKD, neuropathy, HTN who presenteed to the hospital with agitation and delirium 2/2 drug abuse requiting intubation and ventilation in ICU complicated by PAPO and Rhabdo. extubated 04/24. Sepsis 2/2 MSSA bacteremia no clear source of infection, XR negative, a cone negative for vegetations, negative UA Blood cultures growing MSSA Continue Vancomycin Pending result from repeat cultures pending ID eval PAPO on CKD stage 3 2/2 Rhabdomyolysis at admission, resolved Creatinine back to 1 Hold nephrotoxic meds Intake and output follow BMP Toxic metabolic encephalopathy 2/2 drug intoxication, delerium resolved increase pysical activity and do PT avoid meds that might alter her mentation Acute hypoxic respiratory failure resolved, on room air Drug abuse and intoxication advixed complete abstensce from drugs addiction team to follow type 2 DM SSI, lantus diabetic diet HTN Continue home meds DVT PPx Lovenox Patient will need overnight hospital stay for monitoring of sepsis pending finalizing blood culture for safe discharge plan Quality Stroke Does the patient have a stroke diagnosis?: No VTE Prior VTE?: No VTE Risk Level:: Medical - moderate - high VTE Device Contraindication: N/A - Device Ordered VTE Drug Contraindication: Treatment Not Indicated
--- NOTE | 2022-04-29 12:39 | P.CNID_ITS ---
History of Present Illness Data of Consult Service Date: 04/28/22 Requesting physician: Dean Finney Primary Care Provider: Walter Aiken MD [facility] Reason for consult: staph aureus bacteremia She presents altered brought in to ER. She was found without clothes and not sure where she was. She has blood cultures staph aureus,multiple Echo unremarkable Review of Systems Review of Systems: Yes Unobtainable due to mental condition PMFSH Past Medical History Medical History Diabetes HTN (hypertension) Opiate use Family History Family history: reviewed and not pertinent Social History Social History Household Members: Unknown / Unable to assess Housing: Unknown / Unable to assess Unable to assess alcohol history related to: Unable to respond and Unknown Alcohol intake: never Patient Tobacco Use Status: Tobacco use Unknown Use of substances other than those prescribed or required for medical reasons: Unable to respond Substance Use Type: Heroin Currently Displaying Signs/Symptoms of Drug Intoxication Withdrawal: No Advance Directives: No Advance Directives Information Provided: No Patient : No (unable to assess) service: No Current occupational status: disabled Meds Allergies Allergy/AdvReac Type Severity Reaction Status Date / Time Penicillins Allergy Mild HIVES Verified 12/03/20 11:11 Active Medications: Current Medications Acetaminophen (Acetaminophen 325 Mg Tablet) 650 mg PO Q8H PRN PRN Reason: Fever Last Admin: 04/28/22 23:22 Dose: 650 mg Baclofen (Baclofen 10 Mg Tablet) 10 mg PO DAILY [facility] Last Admin: 04/29/22 10:23 Dose: 10 mg Docusate Sodium (Docusate Sodium 100 Mg Capsule) 100 mg PO BID [facility] Last Admin: 04/29/22 10:22 Dose: 100 mg Fluoxetine HCl (Fluoxetine Hcl 20 Mg Capsule) 40 mg PO DAILY [facility] Last Admin: 04/29/22 10:23 Dose: 40 mg Gabapentin (Gabapentin 600 Mg Tablet) 600 mg PO TID [facility] Last Admin: 04/29/22 10:23 Dose: 600 mg Heparin Sodium (Porcine) (Heparin Sodium,Porcine 5,000 Unit/Ml Vial) 5,000 unit SUBCUT Q8H [facility] Last Admin: 04/29/22 10:20 Dose: 5,000 unit Hydrochlorothiazide (Hydrochlorothiazide 12.5 Mg Tablet) 12.5 mg PO DAILY [facility] Last Admin: 04/27/22 08:44 Dose: 12.5 mg Vancomycin HCl 500 mg/ Sodium (Chloride) 110 mls @ 110 mls/hr IV Q12H [facility] Last Infusion: 04/29/22 09:07 Dose: Infused Insulin Glargine (Insulin Glargine,Hum.Rec.Anlog 100 Unit/Ml 10 Ml Vial) 10 unit SUBCUT BEDTIME [facility] Insulin Human Lispro (Insulin Lispro 100 Unit/Ml 3 Ml Vial) 0 unit SUBCUT QIDACHS [facility]; Protocol Last Admin: 04/29/22 11:50 Dose: 4 unit Lamotrigine (Lamotrigine 25 Mg Tablet) 25 mg PO BID [facility] Last Admin: 04/29/22 10:23 Dose: 25 mg Lisinopril (Lisinopril 20 Mg Tablet) 20 mg PO DAILY [facility] Last Admin: 04/27/22 08:44 Dose: 20 mg Methadone HCl (Methadone Hcl 20 Mg/2 Ml Oral.Conc) 107 mg PO DAILY [facility] Last Admin: 04/29/22 10:17 Dose: 107 mg Omeprazole (Omeprazole 20 Mg Capsule.Dr) 20 mg PO DAILY@0630 [facility] Last Admin: 04/29/22 05:43 Dose: 20 mg Pharmacy Consult (Consult Rx Perform Med Rec) 1 each MISCELLANE ONCE PRN PRN Reason: Consult order Pharmacy Consult (Consult Rx Vancomycin Dosing) 1 each MISCELLANE DAILY PRN PRN Reason: Consult order Pharmacy Consult (Consult Rx Vancomycin Dosing) 1 each MISCELLANE DAILY PRN PRN Reason: Consult order Polyethylene Glycol (Polyethylene Glycol 3350 17 Gm Powd.Pack) 17 gm PO DAILY [facility] Last Admin: 04/29/22 10:20 Dose: 17 gm Home Medications Medication Instructions Recorded Confirmed Last Taken Type baclofen 10 mg tablet 1 tab PO TID 04/19/22 04/19/22 Unknown History docusate sodium 100 mg capsule 1 cap PO BEDTIME PRN constipation 04/19/22 04/19/22 Unknown History ferrous sulfate 325 mg (65 mg 325 mg PO DAILY 04/19/22 04/19/22 Unknown History iron) tablet (FeroSul) fluoxetine 20 mg capsule 2 cap PO DAILY 04/19/22 04/19/22 Unknown History gabapentin 800 mg tablet 1 tab PO TID 04/19/22 04/19/22 Unknown History insulin glargine 100 unit/mL 30 unit subcut BEDTIME 04/19/22 04/19/22 Unknown History subcutaneous solution (Lantus U-100 Insulin) lidocaine-prilocaine 2.5 %-2.5 % 1 appl topical DAILY PRN Pain 04/19/22 04/19/22 Unknown History topical cream linagliptin 5 mg tablet (Tradjenta) 1 tab PO DAILY 04/19/22 04/19/22 Unknown History lisinopril 20 1 tab PO DAILY 04/19/22 04/19/22 Unknown History mg-hydrochlorothiazide 12.5 mg tablet metformin 1,000 mg tablet 1 tab PO BID 04/19/22 04/19/22 Unknown History omeprazole 20 mg capsule,delayed 1 cap PO DAILY@0630 04/19/22 04/19/22 Unknown History release pantoprazole 40 mg tablet,delayed 1 tab PO DAILY@0630 04/19/22 04/19/22 Unknown History release trazodone 50 mg tablet 1 tab PO BEDTIME 04/19/22 04/19/22 Unknown History methadone 10 mg/mL oral 107 mg PO DAILY 04/21/22 04/21/22 Unknown History concentrate (Methadone Intensol) Physical Exam Vital Signs: Vital Signs: Last Vital Signs Temp 98.1 F 04/29/22 10:53 Pulse 72 04/29/22 10:53 Resp 20 04/29/22 10:53 BP 167/71 H 04/29/22 10:53 Pulse Ox 95 04/29/22 10:53 O2 Del Method 04/29/22 10:53 O2 Flow Rate 3 04/28/22 15:42 FiO2 30 04/24/22 10:00 BMI result Body Mass Index 25.1 Const: General: cooperative HEENT: Head: Yes normal to inspection Face and sinus: Yes normal facial e xam Mouth: Normal oral and palatal mucosa present Teeth and gingiva: dentition normal Eyes: General: appearance normal, both eyes and all related structures Pupils: Equal, round and reactive pupils present Resp: Effort & Inspection: normal respiratory effort Cardio: Rate: regular rate Rhythm: regular rhythm GI: Palpation (GI): Soft to palpation and nontender : General: Yes no CVA tenderness Back/Spine/Pelvis: Back: no CVA tenderness Skin: General skin exam: no rashes or lesions noted Neuro: General: moves all extremities Cranial nerves: Yes Equal, round and reactive pupils present Extrem: General: Yes normal to inspection Psych: Other: sleepy Appearance: disheveled Speech and movement: Clear speech present Results Labs CBC & Chem 7: 04/29/22 06:01 04/29/22 06:01 Labs: Short CBC 04/29/22 Range/Units 06:01 WBC 5.5 (4.8-10.8) X10*3/uL Hgb 9.0 L (12.0-16.0) g/dl Hct 27.7 L (37.0-47.0) % Plt Count 202 (160-400) X10*3/uL BMP 04/28/22 04/29/22 04/29/22 18:01 06:01 06:01 Sodium 135 Potassium 3.7 Chloride 98 Carbon Dioxide 25 BUN 33 H Creatinine 1.20 0.99 1.00 Calcium 9.1 Urine 04/29/22 Range/Units 09:00 Urine Color Yellow Urine Appearance Clear Urine pH 7.0 (5.0-9.0) Ur Specific [place] 1.015 (1.005-1.025) Urine Protein 100 (2+) H (Neg-Trace) mg/dL Urine Glucose (UA) >=1000 H (Negative) mg/dL Microbiology Microbiology Results: Microbiology 04/27/22 20:00 Blood - Venous Blood Culture - Final Staphylococcus aureus 04/27/22 20:00 Blood - Venous Blood Culture - Final Staphylococcus aureus 04/26/22 20:18 Blood - Venous Blood Culture - Final Staphylococcus aureus 04/26/22 20:18 Blood - Venous Blood Culture - Final Staphylococcus aureus 04/19/22 13:21 Blood - Venous Blood Culture - Final No growth after 5 days. 04/19/22 13:21 Blood - Venous Blood Culture - Final No growth after 5 days. 04/19/22 15:32 Sputum - Suctioned Gram Stain - Final 04/19/22 15:32 Sputum - Suctioned Routine Culture - Final Assessment and Plan (1) MSSA bacteremia: Status: Acute This is likely skin source and no obvious endocarditis She should be treated for minimum two week IV Kefzol or Daptomycin (2) Sepsis: Status: Acute (3) Acute kidney injury: Status: Acute Plan If patient declines to come in for daily IV therapy would give po linezolid for thirty days aware and make patient aware not as good therapy and risk for recurrent sepsis,endocarditis and especially if continues to use drugs
[2022-04-29 17:33] LABS: Glucose, Whole Blood 127 mg/dL (60-115)
--- NOTE | 2022-04-29 20:00 | HO.ADDICTCON ---
History of Present Illness Date of Service: 04/29/2022 Chief Complaint: altered mental status delirium toxic encephalopath Reason for Consult: OUD HPI Narrative: Patient is a 56 year old female currently medically admitted with sepsis after being found with AMS by her . History of substance use, UDS +fentanyl, and cocaine. Currently enanged in OUD treatment at [facility] OT, methadone 107mg QD. Patient seen in room 454. Awake, alert, pleasant and engaged in interview. She reports she has been using 1-3 bags of heroin at a time, but states it has not been every day. She identifies lack of structure as a major trigger for her along with where she is living. No BH providers at this time, including therapist. History of psychiatric hospitalization Strong family supports Son present for second half of visit where goals for treatment were discussed. Discussed options for YANI/BH treatment including PHP/IOP and CSS. Review of Systems Constitutional: Reports as per HPI and Reports no additional constitutional complaints Diagnostics Vital Signs (24Hr): Vital Signs - 24 hr 04/29/22 00:00 04/29/22 03:11 04/29/22 07:18 Temperature 97.8 F 97.0 F 97.9 F Pulse Rate 77 74 74 Respiratory Rate 14 16 20 Blood Pressure 145/66 H 132/70 151/71 H Pulse Oximetry 98 93 95 Oxygen Delivery Method Room Air Room Air Room Air 04/29/22 10:53 04/29/22 15:54 04/29/22 19:17 Temperature 98.1 F 97.4 F 98.9 F Pulse Rate 72 84 78 Respiratory Rate 20 16 16 Blood Pressure 167/71 H 125/55 L 136/78 Pulse Oximetry 95 96 97 Oxygen Delivery Method Room Air Room Air Room Air BMI result Body Mass Index 25.1 Labs Results: 04/29/22 06:01 04/29/22 06:01 Labs: Laboratory Results - last 48 hr 04/27/22 04/28/22 04/28/22 20:01 06:00 06:00 WBC 7.8 RBC 3.27 L Hgb 9.3 L Hct 29.1 L MCV 89.0 MCH 28.4 MCHC 32.0 RDW 14.0 Plt Count 196 MPV 10.8 Absolute Nucleated RBC 0.000 Nucleated RBC % (auto) 0.0 Sodium 134 L Potassium 3.6 Chloride 96 Carbon Dioxide 26 Anion Gap 16 BUN 39 H D Creatinine 1.41 H Estim Creat Clear Calc 42.2 Estimated GFR 39 POC Glucose 201 H Random Glucose 253 H Calcium 9.2 Urine Color Urine Appearance Urine pH Ur Specific [place] Urine Protein Urine Glucose (UA) Urine Ketones Urine Blood Urine Nitrite Ur Leukocyte Esterase Urine RBC Urine WBC Ur Squamous Epith Cells Urine Bacteria Hyaline Casts Urine Eosinophils % Ur Random Sodium Urine Creatinine Random Vancomycin 04/28/22 04/28/22 04/28/22 07:05 11:34 12:31 WBC RBC Hgb Hct MCV MCH MCHC RDW Plt Count MPV Absolute Nucleated RBC Nucleated RBC % (auto) Sodium Potassium Chloride Carbon Dioxide Anion Gap BUN Creatinine Estim Creat Clear Calc Estimated GFR POC Glucose 211 H 255 H Random Glucose Calcium Urine Color Urine Appearance Urine pH Ur Specific [place] Urine Protein Urine Glucose (UA) Urine Ketones Urine Blood Urine Nitrite Ur Leukocyte Esterase Urine RBC Urine WBC Ur Squamous Epith Cells Urine Bacteria Hyaline Casts Urine Eosinophils % Ur Random Sodium Urine Creatinine Random Vancomycin 11.6 L 04/28/22 04/28/22 04/28/22 16:29 18:01 19:47 WBC RBC Hgb Hct MCV MCH MCHC RDW Plt Count MPV Absolute Nucleated RBC Nucleated RBC % (auto) Sodium Potassium Chloride Carbon Dioxide Anion Gap BUN Creatinine 1.20 Estim Creat Clear Calc 49.6 Estimated GFR 47 POC Glucose 202 H 186 H Random Glucose Calcium Urine Color Urine Appearance Urine pH Ur Specific [place] Urine Protein Urine Glucose (UA) Urine Ketones Urine Blood Urine Nitrite Ur Leukocyte Esterase Urine RBC Urine WBC Ur Squamous Epith Cells Urine Bacteria Hyaline Casts Urine Eosinophils % Ur Random Sodium Urine Creatinine Random Vancomycin 04/29/22 04/29/22 04/29/22 06:01 06:01 06:01 WBC 5.5 RBC 3.09 L Hgb 9.0 L Hct 27.7 L MCV 89.6 MCH 29.1 MCHC 32.5 RDW 14.1 Plt Count 202 MPV 11.3 Absolute Nucleated RBC 0.000 Nucleated RBC % (auto) 0.0 Sodium 135 Potassium 3.7 Chloride 98 Carbon Dioxide 25 Anion Gap 16 BUN 33 H Creatinine 0.99 1.00 Estim Creat Clear Calc 60.2 59.6 Estimated GFR 58 58 POC Glucose Random Glucose 357 H* Calcium 9.1 Urine Color Urine Appearance Urine pH Ur Specific [place] Urine Protein Urine Glucose (UA) Urine Ketones Urine Blood Urine Nitrite Ur Leukocyte Esterase Urine RBC Urine WBC Ur Squamous Epith Cells Urine Bacteria Hyaline Casts Urine Eosinophils % Ur Random Sodium Urine Creatinine Random Vancomycin 04/29/22 04/29/22 04/29/22 07:21 09:00 09:00 WBC RBC Hgb Hct MCV MCH MCHC RDW Plt Count MPV Absolute Nucleated RBC Nucleated RBC % (auto) Sodium Potassium Chloride Carbon Dioxide Anion Gap BUN Creatinine Estim Creat Clear Calc Estimated GFR POC Glucose 345 H Random Glucose Calcium Urine Color Yellow Urine Appearance Clear Urine pH 7.0 Ur Specific [place] 1.015 Urine Protein 100 (2+) H Urine Glucose (UA) >=1000 H Urine Ketones Negative Urine Blood Negative Urine Nitrite Negative Ur Leukocyte Esterase Negative Urine RBC 0-2 Urine WBC 0-5 Ur Squamous Epith Cells 0-2 Urine Bacteria None Seen Hyaline Casts 0-2 Urine Eosinophils % 0.0 Ur Random Sodium 76.0 Urine Creatinine 32.45 Random Vancomycin 04/29/22 04/29/22 10:55 17:09 WBC RBC Hgb Hct MCV MCH MCHC RDW Plt Count MPV Absolute Nucleated RBC Nucleated RBC % (auto) Sodium Potassium Chloride Carbon Dioxide Anion Gap BUN Creatinine Estim Creat Clear Calc Estimated GFR POC Glucose 247 H 127 H Random Glucose Calcium Urine Color Urine Appearance Urine pH Ur Specific [place] Urine Protein Urine Glucose (UA) Urine Ketones Urine Blood Urine Nitrite Ur Leukocyte Esterase Urine RBC Urine WBC Ur Squamous Epith Cells Urine Bacteria Hyaline Casts Urine Eosinophils % Ur Random Sodium Urine Creatinine Random Vancomycin Imaging Radiology Impressions: ITS Impressions Cervical Spine CT 04/19/22 14:59 IMPRESSION: - There is a small 3 mm thickness right hemispheric acute subdural hematoma. There is no midline shift nor other significant mass effect. Anterior left frontal scalp hematoma. No calvarial fracture. - No acute maxillofacial fractures are appreciated. Chronic traumatic deformity of the nasal bones. There is fluid opacification of the nasal cavities, possibly in the setting of endotracheal and orogastric tubes. No definite nasal septal fractures identified within the nasal septum exhibits similar leftward deviation of the previous exam. The bony orbits are intact. - No acute osseous findings within the cervical spine. Findings discussed with Ceci Garcia at 3:41 PM on 04/19/2022. Face CT 04/19/22 14:59 IMPRESSION: - There is a small 3 mm thickness right hemispheric acute subdural hematoma. There is no midline shift nor other significant mass effect. Anterior left frontal scalp hematoma. No calvarial fracture. - No acute maxillofacial fractures are appreciated. Chronic traumatic deformity of the nasal bones. There is fluid opacification of the nasal cavities, possibly in the setting of endotracheal and orogastric tubes. No definite nasal septal fractures identified within the nasal septum exhibits similar leftward deviation of the previous exam. The bony orbits are intact. - No acute osseous findings within the cervical spine. Findings discussed with Ceci Garcia at 3:41 PM on 04/19/2022. Head CT 04/19/22 14:59 IMPRESSION: - There is a small 3 mm thickness right hemispheric acute subdural hematoma. There is no midline shift nor other significant mass effect. Anterior left frontal scalp hematoma. No calvarial fracture. - No acute maxillofacial fractures are appreciated. Chronic traumatic deformity of the nasal bones. There is fluid opacification of the nasal cavities, possibly in the setting of endotracheal and orogastric tubes. No definite nasal septal fractures identified within the nasal septum exhibits similar leftward deviation of the previous exam. The bony orbits are intact. - No acute osseous findings within the cervical spine. Findings discussed with Ceci Garcia at 3:41 PM on 04/19/2022. Chest CT 04/19/22 15:01 IMPRESSION: Left upper lobe and right lower lobe infiltrates. There is underlying diffuse emphysema with mild honeycombing in both upper lobes. Endotracheal tube tip is at the padma and enteric tube tip is at the pylorus. Distended urinary bladder. Otherwise no acute intra-abdominal process seen. Cholecystectomy changes. Appendix is normal. There are multiple healed/healing mid and lower left rib fractures. Abdomen/Pelvis CT 04/19/22 15:23 IMPRESSION: Left upper lobe and right lower lobe infiltrates. There is underlying diffuse emphysema with mild honeycombing in both upper lobes. Endotracheal tube tip is at the padma and enteric tube tip is at the pylorus. Distended urinary bladder. Otherwise no acute intra-abdominal process seen. Cholecystectomy changes. Appendix is normal. There are multiple healed/healing mid and lower left rib fractures. Chest X-Ray 04/19/22 15:53 IMPRESSION: Left upper lobe and right lower lobe infiltrates. Tip of endotracheal tube is at the padma. Tip of enteric tube is below diaphragm the stomach. Chest X-Ray 04/20/22 16:56 FINDINGS/IMPRESSION: * Similar appearance of patchy consolidation in the left lung apex which may reflect airways infection however given the somewhat nodular morphology recommend follow-up radiographs to ensure resolution and no underlying lesion. * No pneumothorax or pleural effusion. * Unchanged cardiomediastinal silhouette. * Endotracheal tube tip terminates approximately 2 cm above the padma and enteric tube courses below the diaphragm, tip not imaged Brain MRI 04/22/22 13:00 IMPRESSION: Further decrease in size of a small right-sided subdural collection without mass effect or midline shift. Otherwise, no acute intracranial process. Decreasing left frontal scalp soft tissue swelling with a mild amount of subgaleal fluid. Chest X-Ray 04/22/22 14:26 IMPRESSION: 1. Support devices as detailed above. 2. No acute cardiopulmonary process. Chest X-Ray 04/22/22 18:35 IMPRESSION: New elevation of left hemidiaphragm. Redemonstration of left-sided rib fractures. Tubes and catheters in good position. Chest X-Ray 04/26/22 08:39 IMPRESSION: Minimal bibasilar linear atelectasis/scarring. No acute cardiopulmonary process. Chest X-Ray 04/26/22 20:02 IMPRESSION: 1. No airspace consolidation. 2. Possible trace left pleural effusion versus mild pleural thickening. 3. Possible mild pulmonary vascular congestion. 4. Right IJ central venous catheter tip terminates in the proximal right atrium. Mental Status Exam Mental Status Exam Patient Appearance: Appropriate Level of Consciousness: Awake and Appropriate Patient Behavior: Appropriate and Talkative Mood Description: Calm Affect Description: Calm Patient Cognition Impaired: No Speech Pattern: Clear Thought Process: Intact Thought Content: positive for Intact and positive for Goal Oriented Judgement: Fair Medications Medications Current Medications Acetaminophen (Acetaminophen 325 Mg Tablet) 650 mg PO Q8H PRN PRN Reason: Fever Last Admin: 04/28/22 23:22 Dose: 650 mg Baclofen (Baclofen 10 Mg Tablet) 10 mg PO DAILY [facility] Last Admin: 04/29/22 10:23 Dose: 10 mg Docusate Sodium (Docusate Sodium 100 Mg Capsule) 100 mg PO BID [facility] Last Admin: 04/29/22 10:22 Dose: 100 mg Fluoxetine HCl (Fluoxetine Hcl 20 Mg Capsule) 40 mg PO DAILY [facility] Last Admin: 04/29/22 10:23 Dose: 40 mg Gabapentin (Gabapentin 600 Mg Tablet) 600 mg PO TID [facility] Last Admin: 04/29/22 16:10 Dose: 600 mg Heparin Sodium (Porcine) (Heparin Sodium,Porcine 5,000 Unit/Ml Vial) 5,000 unit SUBCUT Q8H [facility] Last Admin: 04/29/22 10:20 Dose: 5,000 unit Hydrochlorothiazide (Hydrochlorothiazide 12.5 Mg Tablet) 12.5 mg PO DAILY [facility] Last Admin: 04/27/22 08:44 Dose: 12.5 mg Vancomycin HCl 500 mg/ Sodium (Chloride) 110 mls @ 110 mls/hr IV Q12H [facility] Last Infusion: 04/29/22 09:07 Dose: Infused Insulin Glargine (Insulin Glargine,Hum.Rec.Anlog 100 Unit/Ml 10 Ml Vial) 10 unit SUBCUT BEDTIME [facility] Insulin Human Lispro (Insulin Lispro 100 Unit/Ml 3 Ml Vial) 0 unit SUBCUT QIDACHS [facility]; Protocol Last Admin: 04/29/22 17:40 Dose: Not Given Lamotrigine (Lamotrigine 25 Mg Tablet) 25 mg PO BID [facility] Last Admin: 04/29/22 10:23 Dose: 25 mg Lisinopril (Lisinopril 20 Mg Tablet) 20 mg PO DAILY [facility] Last Admin: 04/27/22 08:44 Dose: 20 mg Methadone HCl (Methadone Hcl 20 Mg/2 Ml Oral.Conc) 107 mg PO DAILY [facility] Last Admin: 04/29/22 10:17 Dose: 107 mg Omeprazole (Omeprazole 20 Mg Capsule.Dr) 20 mg PO DAILY@0630 [facility] Last Admin: 04/29/22 05:43 Dose: 20 mg Pharmacy Consult (Consult Rx Perform Med Rec) 1 each MISCELLANE ONCE PRN PRN Reason: Consult order Pharmacy Consult (Consult Rx Vancomycin Dosing) 1 each MISCELLANE DAILY PRN PRN Reason: Consult order Pharmacy Consult (Consult Rx Vancomycin Dosing) 1 each MISCELLANE DAILY PRN PRN Reason: Consult order Polyethylene Glycol (Polyethylene Glycol 3350 17 Gm Powd.Pack) 17 gm PO DAILY [facility] Last Admin: 04/29/22 10:20 Dose: 17 gm Allergies Allergies Allergy/AdvReac Type Severity Reaction Status Date / Time Penicillins Allergy Mild HIVES Verified 12/03/20 11:11 Assessment & Plan Assessment & Plan (1) Opioid use disorder: Status: Acute Code(s): F11.90 - Opioid use, unspecified, uncomplicated Assessment and Plan: provided with CSS information per ID note will require IV abx for some time, so discharge to [facility] from [facility] unlikely RSRN to follow up in AM and answer questions as needed I spent ____55__ minutes with the patient and/or on the patient floor today, greater than?50% of which was spent counseling/coordinating care. [facility] Past Medical History Medical History Diabetes HTN (hypertension) Opiate use Family History Family history: reviewed and not pertinent Social History Social History Household Members: Unknown / Unable to assess Housing: Unknown / Unable to assess Unable to assess alcohol history related to: Unable to respond and Unknown Alcohol intake: never Patient Tobacco Use Status: Tobacco use Unknown Use of substances other than those prescribed or required for medical reasons: Unable to respond Substance Use Type: Heroin Currently Displaying Signs/Symptoms of Drug Intoxication Withdrawal: No Advance Directives: No Advance Directives Information Provided: No Patient : No (unable to assess) service: No Current occupational status: disabled
[2022-04-29 20:06] LABS: Glucose, Whole Blood 176 mg/dL (60-115)
[2022-04-29 20:39] LABS: Vancomycin Random 8.3 mcg/mL (15-20)
[2022-04-29] MEDS: vancomycin HCL 750 MG in 0.9 % Sodium Chloride 250 ML 265 MG IV (23:45)
[2022-04-30 03:24] VITALS: BP 123/68; PULSE 74; RESP 18; TEMP 36.9; O2SAT 97
[2022-04-30] MEDS: Omeprazole 20 MG CAPSULE.DR PO (05:56)
[2022-04-30 06:00] VITALS: BMI 25.7
[2022-04-30 07:00] LABS: Creatinine Clr Calc Pharmacy 62.7; Estimated Glomerular Filt Rate > 60
[2022-04-30 07:04] LABS: Anion Gap 17 (12-20); Blood Urea Nitrogen 27 mg/dL (9-16); Calcium 9.4 mg/dL (8.4-10.2); Carbon Dioxide 26 mmol/L (22-29); Chloride 99 mmol/L (96-108); Creatinine Clr Calc Pharmacy 62.7; Estimated Glomerular Filt Rate > 60; Glucose Random 261 mg/dL (60-115); Potassium 4.1 mmol/L (3.3-5.1); Sodium 138 mmol/L (135-145)
[2022-04-30 07:09] VITALS: BP 150/70; PULSE 81; RESP 18; TEMP 36.6; O2SAT 98
[2022-04-30 07:21] LABS: Glucose, Whole Blood 202 mg/dL (60-115)
[2022-04-30] MEDS: FLUoxetine HCl 20 MG CAPSULE 40 MG PO (08:18)
[2022-04-30] MEDS: Gabapentin 600 MG TABLET PO ×3 (08:18→23:27)
[2022-04-30] MEDS: Insulin Lispro 100 UNIT/ML 3 ML VIAL SUBCUT ×3 (08:18→23:28)
[2022-04-30] MEDS: Docusate Sodium 100 MG CAPSULE PO ×2 (08:18→23:28)
[2022-04-30] MEDS: polyethylene glycoL 3350 17 GM POWD.PACK PO (08:18)
[2022-04-30] MEDS: Baclofen 10 MG TABLET PO (08:18)
[2022-04-30] MEDS: Heparin Sodium,Porcine 5,000 UNIT/ML VIAL 5000 UNIT SUBCUT (08:18)
[2022-04-30] MEDS: lamoTRIgine 25 MG TABLET PO ×2 (08:19→23:27)
[2022-04-30] MEDS: methADONE HCl 20 MG/2 ML ORAL.CONC 107 MG PO (08:19)
[2022-04-30] MEDS: ceFAZolin Sodium/Dextrose,Iso 2 GM/50 ML PIGGYBACK IV ×3 (10:10→23:29)
[2022-04-30 11:19] VITALS: BP 118/61; PULSE 80; RESP 18; TEMP 36.5; O2SAT 95
[2022-04-30 11:27] LABS: Glucose, Whole Blood 286 mg/dL (60-115)
--- NOTE | 2022-04-30 14:50 | P.PNIM_ITS ---
Subjective Subjective Date of Service: 04/30/22 Interval History: cc: ams interval history: left breast pain Cardiovascular Cardiovascular: Reports no additional cardiovascular complaints Respiratory Respiratory: Reports no additional respiratory complaints Physical Exam Vital Signs: Vital Signs: Last Vital Signs Temp 97.7 F 04/30/22 11:19 Pulse 80 04/30/22 11:19 Resp 18 04/30/22 11:19 BP 118/61 04/30/22 11:19 Pulse Ox 95 04/30/22 11:19 O2 Del Method 04/30/22 11:19 O2 Flow Rate 3 04/28/22 15:42 FiO2 30 04/24/22 10:00 BMI result Body Mass Index 25.7 General: AO X 3, no acute distress Resp: CTA bilateral, no accessory muscles used CVS: S1,S2,RRR GI: soft, non tender, non distended Neuro: motor grossly intact, alert Psych: appropriate affect, appropriate insight left breast mobile hardness, mildly tender Objective Data Active Medications Acetaminophen (Acetaminophen 325 Mg Tablet) 650 mg PO Q8H PRN PRN Reason: Fever Last Admin: 04/28/22 23:22 Dose: 650 mg Documented By: MICK Baclofen (Baclofen 10 Mg Tablet) 10 mg PO DAILY [facility] Last Admin: 04/30/22 08:18 Dose: 10 mg Documented By: RADHA Docusate Sodium (Docusate Sodium 100 Mg Capsule) 100 mg PO BID [facility] Last Admin: 04/30/22 08:18 Dose: 100 mg Documented By: RADHA Fluoxetine HCl (Fluoxetine Hcl 20 Mg Capsule) 40 mg PO DAILY [facility] Last Admin: 04/30/22 08:18 Dose: 40 mg Documented By: RADHA Gabapentin (Gabapentin 600 Mg Tablet) 600 mg PO TID [facility] Last Admin: 04/30/22 08:18 Dose: 600 mg Documented By: RADHA Heparin Sodium (Porcine) (Heparin Sodium,Porcine 5,000 Unit/Ml Vial) 5,000 unit SUBCUT Q8H [facility] Last Admin: 04/30/22 08:18 Dose: 5,000 unit Documented By: RADHA Hydrochlorothiazide (Hydrochlorothiazide 12.5 Mg Tablet) 12.5 mg PO DAILY [facility] Last Admin: 04/27/22 08:44 Dose: 12.5 mg Documented By: CRISTOPHER Cefazolin Sodium/Dextrose (Ancef) 2 gm in 50 mls @ 100 mls/hr IV Q8H [facility] Last Infusion: 04/30/22 10:49 Dose: 0 mls/hr Documented By: RADHA Insulin Glargine (Insulin Glargine,Hum.Rec.Anlog 100 Unit/Ml 10 Ml Vial) 10 unit SUBCUT BEDTIME [facility] Last Admin: 04/29/22 21:16 Dose: 10 unit Documented By: MICK Insulin Human Lispro (Insulin Lispro 100 Unit/Ml 3 Ml Vial) 0 unit SUBCUT QIDACHS [facility]; Protocol Last Admin: 04/30/22 11:53 Dose: 6 unit Documented By: RADHA Lamotrigine (Lamotrigine 25 Mg Tablet) 25 mg PO BID [facility] Last Admin: 04/30/22 08:19 Dose: 25 mg Documented By: RADHA Lisinopril (Lisinopril 20 Mg Tablet) 20 mg PO DAILY [facility] Last Admin: 04/27/22 08:44 Dose: 20 mg Documented By: CRISTOPHER Methadone HCl (Methadone Hcl 20 Mg/2 Ml Oral.Conc) 107 mg PO DAILY [facility] Last Admin: 04/30/22 08:19 Dose: 107 mg Documented By: RADHA Omeprazole (Omeprazole 20 Mg Capsule.Dr) 20 mg PO DAILY@0630 [facility] Last Admin: 04/30/22 05:56 Dose: 20 mg Documented By: MICK Pharmacy Consult (Consult Rx Perform Med Rec) 1 each MISCELLANE ONCE PRN PRN Reason: Consult order Pharmacy Consult (Consult Rx Vancomycin Dosing) 1 each MISCELLANE DAILY PRN PRN Reason: Consult order Pharmacy Consult (Consult Rx Vancomycin Dosing) 1 each MISCELLANE DAILY PRN PRN Reason: Consult order Polyethylene Glycol (Polyethylene Glycol 3350 17 Gm Powd.Pack) 17 gm PO DAILY [facility] Last Admin: 04/30/22 08:18 Dose: 17 gm Documented By: RADHA Labs CBC & Chem 7: 04/29/22 06:01 04/30/22 06:15 Labs: Laboratory Results - last 24 hr 04/29/22 04/29/22 04/29/22 17:09 19:20 20:06 Anion Gap Estim Creat Clear Calc Estimated GFR POC Glucose 127 H 176 H Random Glucose Calcium Random Vancomycin 8.3 L 04/30/22 04/30/22 04/30/22 06:15 06:15 07:14 Anion Gap 17 Estim Creat Clear Calc 62.7 62.7 Estimated GFR > 60 > 60 POC Glucose 202 H Random Glucose 261 H Calcium 9.4 Random Vancomycin 04/30/22 11:24 Anion Gap Estim Creat Clear Calc Estimated GFR POC Glucose 286 H Random Glucose Calcium Random Vancomycin Microbiology Microbiology Results: Microbiology 04/28/22 18:01 Blood Culture - Final Blood - Venous Staphylococcus aureus 04/28/22 18:01 Blood Culture - Final Blood - Venous Staphylococcus aureus Assessment and Plan (1) MSSA bacteremia: Status: Acute (2) Acute kidney injury: Status: Acute (3) Acute respiratory failure: Status: Acute (4) Sepsis: Status: Acute Plan 56 years old w PMH of drug abuse, DMII, CKD, neuropathy, HTN who presenteed to the hospital with agitation and delirium 2/2 drug abuse requiting intubation and ventilation in ICU complicated by PAPO and Rhabdo. extubated 04/24. Sepsis 2/2 MSSA bacteremia no clear source of infection, XR negative, echo negative for vegetations, negat zeinab UA Blood cultures still growing MSSA from 04/28/22 change to cefazolin, follow up repeat cultures tomorrow - 05/01/22 ID following left breast mass ?abscess vs malignancy check US PAPO on CKD stage 3 2/2 Rhabdomyolysis at admission, resolved Toxic metabolic encephalopathy 2/2 drug intoxication, delerium resolved increase physical activity and do PT avoid meds that might alter her mentation Acute hypoxic respiratory failure resolved, on room air opiate dependence continue methadone type 2 DM SSI, lantus diabetic diet HTN lisinopril, HCTZ DVT PPx Lovenox reason for continued hospitalization:awaiting culture clearance Quality Stroke Does the patient have a stroke diagnosis?: No VTE Prior VTE?: No VTE Risk Level:: Medical - moderate - high VTE Device Contraindication: N/A - Device Ordered VTE Drug Contraindication: Treatment Not Indicated
[2022-04-30 15:27] VITALS: BP 118/59; PULSE 76; RESP 16; TEMP 36.8; O2SAT 93
--- NOTE | 2022-04-30 15:44 | MHC.CM.PN ---
per rounds pt not ready for dc may need antibiotics
--- NOTE | 2022-04-30 16:01 | MHC.RECOVRN ---
Met with pt in 454 to check in and provide continued support. Upon entering, pt in bed and resting. Pt reporting fatigue and falls asleep during conversation. Pt aware that referral for CSS can not be placed until medically cleared and IV antibiotics have been completed. Pt verbalizes understanding. Pt denies other questions or concerns at this time.
[2022-04-30 16:34] LABS: Glucose, Whole Blood 139 mg/dL (60-115)
[2022-04-30 19:02] VITALS: BP 162/75; PULSE 88; RESP 16; TEMP 36.8; O2SAT 94
[2022-04-30 20:06] LABS: Glucose, Whole Blood 209 mg/dL (60-115)
[2022-04-30] MEDS: Acetaminophen 325 MG TABLET 650 MG PO (23:27)
[2022-04-30] MEDS: Insulin Glargine,Hum.rec.anlog 100 UNIT/ML 10 ML VIAL 10 UNIT SUBCUT (23:28)
[2022-05-01] VITALS (7 sets, daily range): BP systolic 123–171; BP diastolic 59–74; PULSE 69–87; RESP 16–18; TEMP 35.8–37.2; O2SAT 95–99; BMI 25.7
[2022-05-01] MEDS: Omeprazole 20 MG CAPSULE.DR PO (06:02)
[2022-05-01 06:49] LABS: Hematocrit 27.1 % (37.0-47.0); Hemoglobin 8.7 g/dl (12.0-16.0); Mean Corpuscular HGB Conc 32.1 g/dl (31.0-35.0); Mean Corpuscular Hemoglobin 28.8 pg (27.0-33.0); Mean Corpuscular Volume 89.7 fL (80.0-98.0); Mean Platelet Volume 10.8 fL (9.4-12.3); Platelet Count 247 X10*3/uL (160-400); Red Blood Count 3.02 X10*6/uL (4.20-5.50); Red Cell Distribution Width 14.1 % (11.0-16.0)
[2022-05-01 07:34] LABS: Anion Gap 14 (12-20); Blood Urea Nitrogen 24 mg/dL (9-16); Calcium 8.7 mg/dL (8.4-10.2); Carbon Dioxide 25 mmol/L (22-29); Chloride 102 mmol/L (96-108); Creatinine Clr Calc Pharmacy 56.3; Estimated Glomerular Filt Rate 53; Glucose Fasting 352 mg/dL (60-99); Magnesium 1.4 mg/dL (1.6-2.6); Potassium 4.2 mmol/L (3.3-5.1); Sodium 137 mmol/L (135-145)
[2022-05-01 07:35] LABS: Glucose, Whole Blood 304 mg/dL (60-115)
[2022-05-01] MEDS: Magnesium Oxide 400 MG TABLET PO ×2 (08:35→15:57)
[2022-05-01] MEDS: Insulin Lispro 100 UNIT/ML 3 ML VIAL SUBCUT ×3 (08:35→15:57)
[2022-05-01] MEDS: Enoxaparin Sodium 40 MG/0.4 ML SYRINGE SUBCUT (08:35)
[2022-05-01] MEDS: Baclofen 10 MG TABLET PO (08:36)
[2022-05-01] MEDS: Docusate Sodium 100 MG CAPSULE PO ×2 (08:36→21:27)
[2022-05-01] MEDS: FLUoxetine HCl 20 MG CAPSULE 40 MG PO (08:36)
[2022-05-01] MEDS: Gabapentin 600 MG TABLET PO ×3 (08:36→21:27)
[2022-05-01] MEDS: polyethylene glycoL 3350 17 GM POWD.PACK PO (08:36)
[2022-05-01] MEDS: lamoTRIgine 25 MG TABLET PO ×2 (08:36→21:27)
[2022-05-01] MEDS: methADONE HCl 20 MG/2 ML ORAL.CONC 107 MG PO (08:37)
--- NOTE | 2022-05-01 08:58 | MHC.RECOVRN ---
Late entry Spoke with pts son, Lavon ([phone]), yesterday afternoon who informed t/w it would not be possible for pt get to daily abx infusions. Lavon informed t/w that pt would be able to live with him if she were to go to another facility after [facility] to become more stable. Lavon believes STR would be beneficial. CM notified.
[2022-05-01] MEDS: ceFAZolin Sodium/Dextrose,Iso 2 GM/50 ML PIGGYBACK IV ×2 (09:35→17:10)
--- NOTE | 2022-05-01 10:49 | P.CDIC_ITS ---
CDI Concurrent Query Documentation Clarification: PHYSICIAN'S DOCUMENTATION REQUEST Date of Query: 05/01/22 1050 Patient Name: Blank Rosas I Admit Date: 04/19/22 Dear Doctor, A review of the medical record indicates additional documentation may be needed. Please review below and update the documentation accordingly. Clinical Indicators: Is there a diagnosis that correlates with the findings below: Risk Factors/Clinical Indicators/Treatments LABS: POC on 04/30: 286 POC on 05/01: 304 Fating Glucose on 05/01: 352 Please clarify the following regarding Diabetes Mellitus (DM): Complications of DM: * Hyperglycemia * No complications of DM * Other complication ? please specify * Unable to determine Use of terms such as suspected, likely, concern for, or probable (associated with a specific diagnosis that is being evaluated, monitored, or treated as if it exists) are acceptable and can be coded in the inpatient setting, when documented at the time of discharge. Thank you, Alexus Hua MS, RN, CCRN Extension: [phone] Please use your independent medical judgment in providing your response. THIS QUERY IS PART OF THE PERMANENT MEDICAL RECORD Provider Response: Other Other Diagnosis: dm with hyperglycemia
--- NOTE | 2022-05-01 11:15 | P.PNIM_ITS ---
Subjective Subjective Date of Service: 05/01/22 Interval History: cc: ams interval history: left breast pain resolved Cardiovascular Cardiovascular: Reports no additional cardiovascular complaints Respiratory Respiratory: Reports no additional respiratory complaints Physical Exam Vital Signs: Vital Signs: Last Vital Signs Temp 98.5 F 05/01/22 07:28 Pulse 87 05/01/22 07:28 Resp 18 05/01/22 07:28 BP 152/70 H 05/01/22 07:28 Pulse Ox 96 05/01/22 07:28 O2 Del Method 05/01/22 07:28 O2 Flow Rate 3 04/28/22 15:42 FiO2 30 04/24/22 10:00 BMI result Body Mass Index 25.7 General: AO X 3, no acute distress Resp: CTA bilateral, no accessory muscles used CVS: S1,S2,RRR GI: soft, non tender, non distended Neuro: motor grossly intact, alert Psych: appropriate affect, appropriate insight left breast less tender, appears now symmetric with right breast Objective Data Active Medications Acetaminophen (Acetaminophen 325 Mg Tablet) 650 mg PO Q8H PRN PRN Reason: Fever Last Admin: 04/30/22 23:27 Dose: 650 mg Documented By: CARMITA Baclofen (Baclofen 10 Mg Tablet) 10 mg PO DAILY [facility] Last Admin: 05/01/22 08:36 Dose: 10 mg Documented By: RADHA Docusate Sodium (Docusate Sodium 100 Mg Capsule) 100 mg PO BID [facility] Last Admin: 05/01/22 08:36 Dose: 100 mg Documented By: RADHA Enoxaparin Sodium (Enoxaparin Sodium 40 Mg/0.4 Ml Syringe) 40 mg SUBCUT Q24H [facility] Last Admin: 05/01/22 08:35 Dose: 40 mg Documented By: RADHA Fluoxetine HCl (Fluoxetine Hcl 20 Mg Capsule) 40 mg PO DAILY [facility] Last Admin: 05/01/22 08:36 Dose: 40 mg Documented By: RADHA Gabapentin (Gabapentin 600 Mg Tablet) 600 mg PO TID [facility] Last Admin: 05/01/22 08:36 Dose: 600 mg Documented By: RADHA Hydrochlorothiazide (Hydrochlorothiazide 12.5 Mg Tablet) 12.5 mg PO DAILY [facility] Last Admin: 04/27/22 08:44 Dose: 12.5 mg Documented By: CRISTOPHER Cefazolin Sodium/Dextrose (Ancef) 2 gm in 50 mls @ 100 mls/hr IV Q8H [facility] Last Infusion: 05/01/22 10:25 Dose: 0 mls/hr Documented By: RADHA Insulin Glargine (Insulin Glargine,Hum.Rec.Anlog 100 Unit/Ml 10 Ml Vial) 10 unit SUBCUT BEDTIME [facility] Last Admin: 04/30/22 23:28 Dose: 10 unit Documented By: CARMITA Insulin Human Lispro (Insulin Lispro 100 Unit/Ml 3 Ml Vial) 0 unit SUBCUT QIDACHS [facility]; Protocol Last Admin: 05/01/22 08:35 Dose: 10 unit Documented By: RADHA Lamotrigine (Lamotrigine 25 Mg Tablet) 25 mg PO BID [facility] Last Admin: 05/01/22 08:36 Dose: 25 mg Documented By: RADHA Lisinopril (Lisinopril 20 Mg Tablet) 20 mg PO DAILY [facility] Last Admin: 04/27/22 08:44 Dose: 20 mg Documented By: CRISTOPHER Magnesium Oxide (Magnesium Oxide 400 Mg Tablet) 400 mg PO BIDPC [facility] Last Admin: 05/01/22 08:35 Dose: 400 mg Documented By: RADHA Methadone HCl (Methadone Hcl 20 Mg/2 Ml Oral.Conc) 107 mg PO DAILY [facility] Last Admin: 05/01/22 08:37 Dose: 107 mg Documented By: RADHA Omeprazole (Omeprazole 20 Mg Capsule.Dr) 20 mg PO DAILY@0630 [facility] Last Admin: 05/01/22 06:02 Dose: 20 mg Documented By: CARMITA Pharmacy Consult (Consult Rx Perform Med Rec) 1 each MISCELLANE ONCE PRN PRN Reason: Consult order Pharmacy Consult (Consult Rx Vancomycin Dosing) 1 each MISCELLANE DAILY PRN PRN Reason: Consult order Pharmacy Consult (Consult Rx Vancomycin Dosing) 1 each MISCELLANE DAILY PRN PRN Reason: Consult order Polyethylene Glycol (Polyethylene Glycol 3350 17 Gm Powd.Pack) 17 gm PO DAILY [facility] Last Admin: 05/01/22 08:36 Dose: 17 gm Documented By: RADHA Labs CBC & Chem 7: 05/01/22 06:35 05/01/22 06:35 Labs: Laboratory Results - last 24 hr 10/26/22 10/26/22 10/26/22 11:24 16:19 19:06 MCV MCH MCHC RDW Plt Count MPV Absolute Nucleated RBC Nucleated RBC % (auto) Anion Gap Estim Creat Clear Calc Estimated GFR POC Glucose 286 H 139 H 209 H Fasting Glucose Calcium Magnesium 05/01/22 05/01/22 05/01/22 06:35 06:35 07:27 MCV 89.7 MCH 28.8 MCHC 32.1 RDW 14.1 Plt Count 247 MPV 10.8 Absolute Nucleated RBC 0.000 Nucleated RBC % (auto) 0.0 Anion Gap 14 Estim Creat Clear Calc 56.3 Estimated GFR 53 POC Glucose 304 H Fasting Glucose 352 H* Calcium 8.7 D Magnesium 1.4 L* Microbiology Microbiology Results: Microbiology 04/28/22 18:01 Blood Culture - Final Blood - Venous Staphylococcus aureus 04/28/22 18:01 Blood Culture - Final Blood - Venous Staphylococcus aureus Assessment and Plan (1) MSSA bacteremia: Status: Acute (2) Acute kidney injury: Status: Acute (3) Acute respiratory failure: Status: Acute (4) Sepsis: Status: Acute Plan 56 years old w PMH of drug abuse, DMII, CKD, neuropathy, HTN who presenteed to the hospital with agitation and delirium 2/2 drug abuse requiting intubation and ventilation in ICU complicated by PAPO and Rhabdo. extubated 04/24. Sepsis 2/2 MSSA bacteremia no clear source of infection, XR negative, echo negative for vegetations, negative UA Blood cultures still growing MSSA from 04/28/22 changed to cefazolin, follow up repeat cultures tomorrow - 05/01/22 ID following left breast discomfort US negative outpatient mammogram PAPO on CKD stage 3 2/2 Rhabdomyolysis at admission, resolved Toxic metabolic encephalopathy 2/2 drug intoxication, delerium resolved increase physical activity and do PT avoid meds that might alter her mentation Acute hypoxic respiratory failure resolved, on room air opiate dependence continue methadone type 2 DM SSI, lantus diabetic diet HTN lisinopril, HCTZ DVT PPx Lovenox reason for continued hospitalization:awaiting culture clearance Quality Stroke Does the patient have a stroke diagnosis?: No VTE Prior VTE?: No VTE Risk Level:: Medical - moderate - high VTE Device Contraindication: N/A - Device Ordered VTE Drug Contraindication: Treatment Not Indicated
[2022-05-01 11:32] LABS: Glucose, Whole Blood 159 mg/dL (60-115)
--- NOTE | 2022-05-01 13:14 | MHC.CM.PN ---
Female 56 DX AMS Encephalopathy DP STR for IV ABX vs Home on PO Linezolid x 30 days. BLS transport to SNF vs Family transport home. [facility] is following. Cultures are still pending. No dc today.
--- NOTE | 2022-05-01 14:28 | MHC.RECOVRN ---
Met with pt to check in. Upon entering pts room, pt standing next to bed watching TV. Pt reports being upset that she can not continue IV abx while at son's house and that she was encouraged to go to STR. Pt received phone call during conversation, will check in at a later time.
[2022-05-01 15:42] LABS: Glucose, Whole Blood 229 mg/dL (60-115)
[2022-05-01 20:29] LABS: Glucose, Whole Blood 134 mg/dL (60-115)
[2022-05-01] MEDS: Insulin Glargine,Hum.rec.anlog 100 UNIT/ML 10 ML VIAL 10 UNIT SUBCUT (21:29)
[2022-05-02] MEDS: ceFAZolin Sodium/Dextrose,Iso 2 GM/50 ML PIGGYBACK IV ×3 (01:17→16:34)
[2022-05-02 02:57] VITALS: BP 131/65; PULSE 72; RESP 14; TEMP 37; O2SAT 96
[2022-05-02 03:31] LABS: Appearance Urine Clear; Color Urine Yellow; Glucose Urine UA Negative (Negative); Leukocyte Esterase Urine Negative (Negative); Nitrite Urine Negative (Negative); PH 6.5 (5.0-9.0); Specific Gravity - Urine <= 1.005 (1.005-1.025); UMIC TRIGGER UA YES; Urine Blood Negative (Negative); Urine Ketones Negative (Negative); Urine Protein 30 (1+) mg/dL (Neg-Trace)
[2022-05-02 03:45] LABS: Amphetamine Screen Urine Not Detected (Not Detect); Barbiturates, Urine Not Detected (Not Detect); Benzodiazepines Screen Urine Not Detected (Not Detect); Cannabinoid Screen Urine Not Detected (Not Detect); Cocaine Screen Urine Not Detected (Not Detect); Fentanyl, urine POSITIVE (Not Detect); Opiate Screen Urine Not Detected (Not Detect); Phencyclidine Screen Urine Not Detected (Not Detect)
[2022-05-02 03:50] LABS: Bacteria Urine None Seen (None Seen); Hyaline Casts Urine 0-2 /LPF (0-2); RBC Urine 0-2 /HPF (0-2); Squamous Epithelial Cell Urine 0-2 /HPF (0-2); WBC Urine 0-5 /HPF (0-5)
[2022-05-02] MEDS: Omeprazole 20 MG CAPSULE.DR PO (05:48)
[2022-05-02 07:13] LABS: Anion Gap 18 (12-20); Blood Urea Nitrogen 28 mg/dL (9-16); Calcium 9.2 mg/dL (8.4-10.2); Carbon Dioxide 23 mmol/L (22-29); Chloride 101 mmol/L (96-108); Creatinine Clr Calc Pharmacy 61.5; Estimated Glomerular Filt Rate 51; Glucose Fasting 238 mg/dL (60-99); Potassium 4.7 mmol/L (3.3-5.1); Sodium 137 mmol/L (135-145)
[2022-05-02 07:33] VITALS: BP 144/71; PULSE 79; RESP 20; TEMP 36.9; O2SAT 98
[2022-05-02 07:38] LABS: Glucose, Whole Blood 247 mg/dL (60-115)
[2022-05-02] MEDS: polyethylene glycoL 3350 17 GM POWD.PACK PO (07:51)
[2022-05-02] MEDS: Docusate Sodium 100 MG CAPSULE PO ×2 (07:51→20:50)
[2022-05-02] MEDS: lamoTRIgine 25 MG TABLET PO ×2 (07:51→20:50)
[2022-05-02] MEDS: Insulin Lispro 100 UNIT/ML 3 ML VIAL SUBCUT ×4 (07:51→20:50)
[2022-05-02] MEDS: FLUoxetine HCl 20 MG CAPSULE 40 MG PO (07:51)
[2022-05-02] MEDS: Gabapentin 600 MG TABLET PO ×3 (07:51→20:50)
[2022-05-02] MEDS: Magnesium Oxide 400 MG TABLET PO ×2 (07:51→16:34)
[2022-05-02] MEDS: Enoxaparin Sodium 40 MG/0.4 ML SYRINGE SUBCUT (07:52)
[2022-05-02] MEDS: methADONE HCl 20 MG/2 ML ORAL.CONC 107 MG PO (07:52)
[2022-05-02] MEDS: Baclofen 10 MG TABLET PO (07:52)
[2022-05-02 09:57] LABS: Hematocrit 27.6 % (37.0-47.0); Hemoglobin 8.6 g/dl (12.0-16.0); Mean Corpuscular HGB Conc 31.2 g/dl (31.0-35.0); Mean Corpuscular Hemoglobin 28.5 pg (27.0-33.0); Mean Corpuscular Volume 91.4 fL (80.0-98.0); Mean Platelet Volume 10.8 fL (9.4-12.3); Platelet Count 280 X10*3/uL (160-400); Red Blood Count 3.02 X10*6/uL (4.20-5.50); Red Cell Distribution Width 14.2 % (11.0-16.0); White Blood Count 7.7 X10*3/uL (4.8-10.8)
--- NOTE | 2022-05-02 10:29 | P.PNIM_ITS ---
Subjective Subjective Date of Service: 05/02/22 Interval History: cc: ams interval history: left breast pain resolved Cardiovascular Cardiovascular: Reports no additional cardiovascular complaints Respiratory Respiratory: Reports no additional respiratory complaints Physical Exam Vital Signs: Vital Signs: Last Vital Signs Temp 98.5 F 05/02/22 07:33 Pulse 79 05/02/22 07:33 Resp 20 05/02/22 07:33 BP 144/71 H 05/02/22 07:33 Pulse Ox 98 05/02/22 07:33 O2 Del Method 05/02/22 07:33 O2 Flow Rate 3 04/28/22 15:42 FiO2 30 04/24/22 10:00 BMI result Body Mass Index 25.7 General: AO X 3, no acute distress Resp: CTA bilateral, no accessory muscles used CVS: S1,S2,RRR GI: soft, non tender, non distended Neuro: motor grossly intact, alert Psych: appropriate affect, appropriate insight left breast less tender, appears now symmetric with right breast Objective Data Active Medications Acetaminophen (Acetaminophen 325 Mg Tablet) 650 mg PO Q8H PRN PRN Reason: Fever Last Admin: 04/30/22 23:27 Dose: 650 mg Documented By: CARMITA Baclofen (Baclofen 10 Mg Tablet) 10 mg PO DAILY [facility] Last Admin: 05/02/22 07:52 Dose: 10 mg Documented By: MANJIT Docusate Sodium (Docusate Sodium 100 Mg Capsule) 100 mg PO BID [facility] Last Admin: 05/02/22 07:51 Dose: 100 mg Documented By: MANJIT Enoxaparin Sodium (Enoxaparin Sodium 40 Mg/0.4 Ml Syringe) 40 mg SUBCUT Q24H [facility] Last Admin: 05/02/22 07:52 Dose: 40 mg Documented By: MANJIT Fluoxetine HCl (Fluoxetine Hcl 20 Mg Capsule) 40 mg PO DAILY [facility] Last Admin: 05/02/22 07:51 Dose: 40 mg Documented By: MANJIT Gabapentin (Gabapentin 600 Mg Tablet) 600 mg PO TID [facility] Last Admin: 05/02/22 07:51 Dose: 600 mg Documented By: MANJIT Hydrochlorothiazide (Hydrochlorothiazide 12.5 Mg Tablet) 12.5 mg PO DAILY [facility] Last Admin: 04/27/22 08:44 Dose: 12.5 mg Documented By: CRISTOPHER Cefazolin Sodium/Dextrose (Ancef) 2 gm in 50 mls @ 100 mls/hr IV Q8H [facility] Last Infusion: 05/02/22 08:46 Dose: 0 mls/hr Documented By: MANJIT Insulin Glargine (Insulin Glargine,Hum.Rec.Anlog 100 Unit/Ml 10 Ml Vial) 10 unit SUBCUT BEDTIME [facility] Last Admin: 05/01/22 21:29 Dose: 10 unit Documented By: KARLEE Insulin Human Lispro (Insulin Lispro 100 Unit/Ml 3 Ml Vial) 0 unit SUBCUT QIDACHS [facility]; Protocol Last Admin: 05/02/22 07:51 Dose: 4 unit Documented By: MANJIT Lamotrigine (Lamotrigine 25 Mg Tablet) 25 mg PO BID [facility] Last Admin: 05/02/22 07:51 Dose: 25 mg Documented By: MANJIT Lisinopril (Lisinopril 20 Mg Tablet) 20 mg PO DAILY [facility] Last Admin: 04/27/22 08:44 Dose: 20 mg Documented By: CRISTOPHER Magnesium Oxide (Magnesium Oxide 400 Mg Tablet) 400 mg PO BIDPC [facility] Last Admin: 05/02/22 07:51 Dose: 400 mg Documented By: MANJIT Methadone HCl (Methadone Hcl 20 Mg/2 Ml Oral.Conc) 107 mg PO DAILY [facility] Last Admin: 05/02/22 07:52 Dose: 107 mg Documented By: MANJIT Omeprazole (Omeprazole 20 Mg Capsule.Dr) 20 mg PO DAILY@0630 [facility] Last Admin: 05/02/22 05:48 Dose: 20 mg Documented By: KARLEE Pharmacy Consult (Consult Rx Perform Med Rec) 1 each MISCELLANE ONCE PRN PRN Reason: Consult order Pharmacy Consult (Consult Rx Vancomycin Dosing) 1 each MISCELLANE DAILY PRN PRN Reason: Consult order Pharmacy Consult (Consult Rx Vancomycin Dosing) 1 each MISCELLANE DAILY PRN PRN Reason: Consult order Polyethylene Glycol (Polyethylene Glycol 3350 17 Gm Powd.Pack) 17 gm PO DAILY [facility] Last Admin: 05/02/22 07:51 Dose: 17 gm Documented By: MANJIT Labs CBC & Chem 7: 05/02/22 09:40 05/02/22 06:22 Labs: Laboratory Results - last 24 hr 05/01/22 05/01/22 05/01/22 11:26 15:34 20:22 MCV MCH MCHC RDW Plt Count MPV Absolute Nucleated RBC Nucleated RBC % (auto) Anion Gap Estim Creat Clear Calc Estimated GFR POC Glucose 159 H 229 H 134 H Fasting Glucose Calcium Urine Color Urine Appearance Urine pH Ur Specific [place] Urine Protein Urine Glucose (UA) Urine Ketones Urine Blood Urine Nitrite Ur Leukocyte Esterase Urine RBC Urine WBC Ur Squamous Epith Cells Urine Bacteria Hyaline Casts Urine Opiates Screen Urine Fentanyl Screen Ur Barbiturates Screen Ur Phencyclidine Scrn Ur Amphetamines Screen U Benzodiazepines Scrn Urine Cocaine Screen U Marijuana (THC) Screen 05/02/22 05/02/22 05/02/22 03:10 03:10 06:22 MCV MCH MCHC RDW Plt Count MPV Absolute Nucleated RBC Nucleated RBC % (auto) Anion Gap 18 Estim Creat Clear Calc 61.5 Estimated GFR 51 POC Glucose Fasting Glucose 238 H Calcium 9.2 Urine Color Yellow Urine Appearance Clear Urine pH 6.5 Ur Specific [place] <= 1.005 Urine Protein 30 (1+) H Urine Glucose (UA) Negative Urine Ketones Negative Urine Blood Negative Urine Nitrite Negative Ur Leukocyte Esterase Negative Urine RBC 0-2 Urine WBC 0-5 Ur Squamous Epith Cells 0-2 Urine Bacteria None Seen Hyaline Casts 0-2 Urine Opiates Screen Not Detected Urine Fentanyl Screen POSITIVE H Ur Barbiturates Screen Not Detected Ur Phencyclidine Scrn Not Detected Ur Amphetamines Screen Not Detected U Benzodiazepines Scrn Not Detected Urine Cocaine Screen Not Detected U Marijuana (THC) Screen Not Detected 05/02/22 05/02/22 07:32 09:40 MCV 91.4 MCH 28.5 MCHC 31.2 RDW 14.2 Plt Count 280 MPV 10.8 Absolute Nucleated RBC 0.000 Nucleated RBC % (auto) 0.0 Anion Gap Estim Creat Clear Calc Estimated GFR POC Glucose 247 H Fasting Glucose Calcium Urine Color Urine Appearance Urine pH Ur Specific [place] Urine Protein Urine Glucose (UA) Urine Ketones Urine Blood Urine Nitrite Ur Leukocyte Esterase Urine RBC Urine WBC Ur Squamous Epith Cells Urine Bacteria Hyaline Casts Urine Opiates Screen Urine Fentanyl Screen Ur Barbiturates Screen Ur Phencyclidine Scrn Ur Amphetamines Screen U Benzodiazepines Scrn Urine Cocaine Screen U Marijuana (THC) Screen Microbiology Microbiology Results: Microbiology 05/01/22 06:35 Blood Culture - Preliminary Blood - Venous No growth after 24 hours. 05/01/22 06:35 Blood Culture - Preliminary Blood - Venous No growth after 24 hours. Assessment and Plan (1) MSSA bacteremia: Status: Acute (2) Acute kidney injury: Status: Acute (3) Acute respiratory failure: Status: Acute (4) Sepsis: Status: Acute Plan 56 years old w PMH of drug abuse, DMII, CKD, neuropathy, HTN who presenteed to the hospital with agitation and delirium 2/2 drug abuse requiting intubation and ventilation in ICU complicated by PAPO and Rhabdo. extubated 04/24. Sepsis 2/2 MSSA bacteremia no clear source of infection, XR negative, echo negative for vegetations, negative UA Blood cultures still growing MSSA from 04/28/22 changed to cefazolin, repeat cultures 05/01/22 engative so far, eventual plan for picc tomorrow 05/03/22 ID following left breast discomfort US negative outpatient mammogram PAPO on CKD stage 3 2/2 Rhabdomyolysis at admission, resolved Toxic metabolic encephalopathy 2/2 drug intoxication, delerium resolved increase physical activity and do PT avoid meds that might alter her mentation Acute hypoxic respiratory failure resolved, on room air opiate dependence continue methadone type 2 DM SSI, lantus diabetic diet HTN lisinopril, HCTZ DVT PPx Lovenox reason for continued hospitalization:awaiting culture clearance Quality Stroke Does the patient have a stroke diagnosis?: No VTE Prior VTE?: No VTE Risk Level:: Medical - moderate - high VTE Device Contraindication: N/A - Device Ordered VTE Drug Contraindication: Treatment Not Indicated
[2022-05-02 11:02] LABS: Glucose, Whole Blood 306 mg/dL (60-115)
[2022-05-02 11:11] VITALS: BP 142/62; PULSE 68; RESP 20; TEMP 36.8; O2SAT 96
[2022-05-02 15:12] VITALS: BP 119/66; PULSE 68; RESP 15; TEMP 36.2; O2SAT 97
[2022-05-02 16:03] LABS: Glucose, Whole Blood 206 mg/dL (60-115)
[2022-05-02 19:09] VITALS: BP 130/60; PULSE 78; RESP 18; TEMP 35.6; O2SAT 94
[2022-05-02 20:21] LABS: Glucose, Whole Blood 296 mg/dL (60-115)
[2022-05-02] MEDS: Insulin Glargine,Hum.rec.anlog 100 UNIT/ML 10 ML VIAL 10 UNIT SUBCUT (20:51)
[2022-05-02 23:29] VITALS: BP 133/65; PULSE 72; RESP 20; TEMP 36.3; O2SAT 94
[2022-05-03] MEDS: ceFAZolin Sodium/Dextrose,Iso 2 GM/50 ML PIGGYBACK IV ×3 (00:57→16:52)
[2022-05-03 03:04] VITALS: BP 158/72; PULSE 78; RESP 20; TEMP 36.4; O2SAT 94
[2022-05-03] MEDS: Omeprazole 20 MG CAPSULE.DR PO (05:24)
[2022-05-03 07:13] VITALS: BP 133/85; PULSE 79; RESP 17; TEMP 36.8; O2SAT 92
[2022-05-03 07:46] LABS: Glucose, Whole Blood 185 mg/dL (60-115)
[2022-05-03] MEDS: Baclofen 10 MG TABLET PO (08:11)
[2022-05-03] MEDS: FLUoxetine HCl 20 MG CAPSULE 40 MG PO (08:11)
[2022-05-03] MEDS: Docusate Sodium 100 MG CAPSULE PO ×2 (08:11→21:36)
[2022-05-03] MEDS: lamoTRIgine 25 MG TABLET PO ×2 (08:11→21:36)
[2022-05-03] MEDS: Enoxaparin Sodium 40 MG/0.4 ML SYRINGE SUBCUT (08:11)
[2022-05-03] MEDS: Insulin Lispro 100 UNIT/ML 3 ML VIAL SUBCUT ×4 (08:11→21:36)
[2022-05-03] MEDS: Magnesium Oxide 400 MG TABLET PO ×2 (08:12→16:51)
[2022-05-03] MEDS: methADONE HCl 20 MG/2 ML ORAL.CONC 107 MG PO (08:12)
[2022-05-03] MEDS: Gabapentin 600 MG TABLET PO ×3 (08:12→21:36)
[2022-05-03] MEDS: polyethylene glycoL 3350 17 GM POWD.PACK PO (08:12)
--- NOTE | 2022-05-03 09:12 | P.PNIM_ITS ---
Subjective Subjective Date of Service: 05/03/22 Interval History: cc: ams interval history: left breast pain resolved Cardiovascular Cardiovascular: Reports no additional cardiovascular complaints Respiratory Respiratory: Reports no additional respiratory complaints Physical Exam Vital Signs: Vital Signs: Last Vital Signs Temp 98.2 F 05/03/22 07:13 Pulse 79 05/03/22 07:13 Resp 17 05/03/22 07:13 BP 133/85 05/03/22 07:13 Pulse Ox 92 05/03/22 07:13 O2 Del Method 05/03/22 07:13 O2 Flow Rate 3 04/28/22 15:42 FiO2 30 04/24/22 10:00 BMI result Body Mass Index 0.0 General: AO X 3, no acute distress Resp: CTA bilateral, no accessory muscles used CVS: S1,S2,RRR GI: soft, non tender, non distended Neuro: motor grossly intact, alert Psych: appropriate affect, appropriate insight left breast less tender, appears now symmetric with right breast Objective Data Active Medications Acetaminophen (Acetaminophen 325 Mg Tablet) 650 mg PO Q8H PRN PRN Reason: Fever Last Admin: 04/30/22 23:27 Dose: 650 mg Documented By: CARMITA Baclofen (Baclofen 10 Mg Tablet) 10 mg PO DAILY [facility] Last Admin: 05/03/22 08:11 Dose: 10 mg Documented By: MANJIT Docusate Sodium (Docusate Sodium 100 Mg Capsule) 100 mg PO BID [facility] Last Admin: 05/03/22 08:11 Dose: 100 mg Documented By: MANJIT Enoxaparin Sodium (Enoxaparin Sodium 40 Mg/0.4 Ml Syringe) 40 mg SUBCUT Q24H [facility] Last Admin: 05/03/22 08:11 Dose: 40 mg Documented By: MANJIT Fluoxetine HCl (Fluoxetine Hcl 20 Mg Capsule) 40 mg PO DAILY [facility] Last Admin: 05/03/22 08:11 Dose: 40 mg Documented By: MANJIT Gabapentin (Gabapentin 600 Mg Tablet) 600 mg PO TID [facility] Last Admin: 05/03/22 08:12 Dose: 600 mg Documented By: MANJIT Hydrochlorothiazide (Hydrochlorothiazide 12.5 Mg Tablet) 12.5 mg PO DAILY [facility] Last Admin: 04/27/22 08:44 Dose: 12.5 mg Documented By: CRISTOPHER Cefazolin Sodium/Dextrose (Ancef) 2 gm in 50 mls @ 100 mls/hr IV Q8H [facility] Last Infusion: 05/03/22 09:05 Dose: 0 mls/hr Documented By: MANJIT Insulin Glargine (Insulin Glargine,Hum.Rec.Anlog 100 Unit/Ml 10 Ml Vial) 10 unit SUBCUT BEDTIME [facility] Last Admin: 05/02/22 20:51 Dose: 10 unit Documented By: NICOLE Insulin Human Lispro (Insulin Lispro 100 Unit/Ml 3 Ml Vial) 0 unit SUBCUT QIDACHS [facility]; Protocol Last Admin: 05/03/22 08:11 Dose: 4 unit Documented By: MANJIT Lamotrigine (Lamotrigine 25 Mg Tablet) 25 mg PO BID [facility] Last Admin: 05/03/22 08:11 Dose: 25 mg Documented By: MANJIT Lisinopril (Lisinopril 20 Mg Tablet) 20 mg PO DAILY [facility] Last Admin: 04/27/22 08:44 Dose: 20 mg Documented By: CRISTOPHER Magnesium Oxide (Magnesium Oxide 400 Mg Tablet) 400 mg PO BIDPC [facility] Last Admin: 05/03/22 08:12 Dose: 400 mg Documented By: MANJIT Methadone HCl (Methadone Hcl 20 Mg/2 Ml Oral.Conc) 107 mg PO DAILY [facility] Last Admin: 05/03/22 08:12 Dose: 107 mg Documented By: MANJIT Omeprazole (Omeprazole 20 Mg Capsule.Dr) 20 mg PO DAILY@0630 [facility] Last Admin: 05/03/22 05:24 Dose: 20 mg Documented By: NICOLE Pharmacy Consult (Consult Rx Perform Med Rec) 1 each MISCELLANE ONCE PRN PRN Reason: Consult order Pharmacy Consult (Consult Rx Vancomycin Dosing) 1 each MISCELLANE DAILY PRN PRN Reason: Consult order Pharmacy Consult (Consult Rx Vancomycin Dosing) 1 each MISCELLANE DAILY PRN PRN Reason: Consult order Polyethylene Glycol (Polyethylene Glycol 3350 17 Gm Powd.Pack) 17 gm PO DAILY [facility] Last Admin: 05/03/22 08:12 Dose: 17 gm Documented By: MANJIT Labs CBC & Chem 7: 05/02/22 09:40 05/02/22 06:22 Labs: Laboratory Results - last 24 hr 05/02/22 05/02/22 05/02/22 09:40 10:58 15:56 MCV 91.4 MCH 28.5 MCHC 31.2 RDW 14.2 Plt Count 280 MPV 10.8 Absolute Nucleated RBC 0.000 Nucleated RBC % (auto) 0.0 POC Glucose 306 H 206 H 05/02/22 05/03/22 20:11 07:17 MCV MCH MCHC RDW Plt Count MPV Absolute Nucleated RBC Nucleated RBC % (auto) POC Glucose 296 H 185 H Microbiology Microbiology Results: Microbiology 05/01/22 06:35 Blood Culture - Preliminary Blood - Venous No growth after 48 hours. 05/01/22 06:35 Blood Culture - Preliminary Blood - Venous No growth after 48 hours. Assessment and Plan (1) MSSA bacteremia: Status: Acute (2) Acute kidney injury: Status: Acute (3) Acute respiratory failure: Status: Acute (4) Sepsis: Status: Acute Plan 56 years old w PMH of drug abuse, DMII, CKD, neuropathy, HTN who presenteed to the hospital with agitation and delirium 2/2 drug abuse requiting intubation and ventilation in ICU complicated by PAPO and Rhabdo. extubated 04/24. Sepsis 2/2 MSSA bacteremia no clear source of infection, XR negative, echo negative for vegetations, negative UA Blood cultures grew MSSA from 04/28/22 changed to cefazolin, repeat cultures 05/01/22 negative so far, eventual plan for picc tomorrow 05/05/22 ID appreciated - 2 weeks total from negative culture, end may 11, 2022 left breast discomfort US negative outpatient mammogram PAPO on CKD stage 3 2/2 Rhabdomyolysis at admission, resolved Toxic metabolic encephalopathy 2/2 drug intoxication, delerium resolved increase physical activity and do PT avoid meds that might alter her mentation Acute hypoxic respiratory failure resolved, on room air opiate dependence continue methadone type 2 DM SSI, lantus diabetic diet HTN lisinopril, HCTZ DVT PPx Lovenox reason for continued hospitalization:awaiting culture clearance Quality Stroke Does the patient have a stroke diagnosis?: No VTE Prior VTE?: No VTE Risk Level:: Medical - moderate - high VTE Device Contraindication: N/A - Device Ordered VTE Drug Contraindication: Treatment Not Indicated
[2022-05-03 11:04] VITALS: BP 148/76; PULSE 71; RESP 17; TEMP 36.7; O2SAT 97
[2022-05-03 11:45] LABS: Glucose, Whole Blood 279 mg/dL (60-115)
[2022-05-03 15:47] VITALS: BP 135/85; PULSE 67; RESP 17; TEMP 36.6; O2SAT 94
[2022-05-03 16:10] LABS: Glucose, Whole Blood 234 mg/dL (60-115)
[2022-05-03 19:31] VITALS: BP 137/66; PULSE 70; RESP 18; TEMP 36.7; O2SAT 96
[2022-05-03 20:11] LABS: Glucose, Whole Blood 348 mg/dL (60-115)
[2022-05-03] MEDS: Insulin Glargine,Hum.rec.anlog 100 UNIT/ML 10 ML VIAL 10 UNIT SUBCUT (21:36)
--- NOTE | 2022-05-03 23:45 | PM.EVENT ---
Event Note Date of Service: 05/03/22 Event Note: wouldcontinue IV antibiotic for MSSA through 05/14
[2022-05-03 23:48] VITALS: BP 129/71; PULSE 77; RESP 20; TEMP 36.5; O2SAT 96
[2022-05-04] MEDS: ceFAZolin Sodium/Dextrose,Iso 2 GM/50 ML PIGGYBACK IV ×3 (00:39→16:57)
[2022-05-04 04:00] VITALS: BP 173/95; PULSE 70; RESP 20; TEMP 36.7; O2SAT 96
[2022-05-04] MEDS: Omeprazole 20 MG CAPSULE.DR PO (06:19)
[2022-05-04 07:32] VITALS: BP 158/87; PULSE 76; RESP 16; TEMP 36.8; O2SAT 97
[2022-05-04 07:39] LABS: Glucose, Whole Blood 143 mg/dL (60-115)
[2022-05-04] MEDS: polyethylene glycoL 3350 17 GM POWD.PACK PO (08:15)
[2022-05-04] MEDS: Enoxaparin Sodium 40 MG/0.4 ML SYRINGE SUBCUT (08:15)
[2022-05-04] MEDS: FLUoxetine HCl 20 MG CAPSULE 40 MG PO (08:16)
[2022-05-04] MEDS: Baclofen 10 MG TABLET PO (08:16)
[2022-05-04] MEDS: Docusate Sodium 100 MG CAPSULE PO ×2 (08:16→21:13)
[2022-05-04] MEDS: Magnesium Oxide 400 MG TABLET PO ×2 (08:16→16:57)
[2022-05-04] MEDS: lamoTRIgine 25 MG TABLET PO ×2 (08:16→21:13)
[2022-05-04] MEDS: Gabapentin 600 MG TABLET PO ×3 (08:16→21:13)
[2022-05-04] MEDS: methADONE HCl 20 MG/2 ML ORAL.CONC 107 MG PO (08:16)
--- NOTE | 2022-05-04 08:58 | HO.PM.IMPN ---
Subjective Subjective Date of Service: 05/04/22 Interval History: cc: ams interval history: left breast pain resolved Cardiovascular Cardiovascular: Reports no additional cardiovascular complaints Respiratory Respiratory: Reports no additional respiratory complaints Physical Exam Vital Signs: Vital Signs: Last Vital Signs Temp 98.3 F 05/04/22 07:32 Pulse 76 05/04/22 07:32 Resp 16 05/04/22 07:32 BP 158/87 H 05/04/22 07:32 Pulse Ox 97 05/04/22 07:32 O2 Del Method 05/04/22 07:32 O2 Flow Rate 3 04/28/22 15:42 FiO2 30 04/24/22 10:00 BMI result Body Mass Index 0.0 General: AO X 3, no acute distress Resp: CTA bilateral, no accessory muscles used CVS: S1,S2,RRR GI: soft, non tender, non distended Neuro: motor grossly intact, alert Psych: appropriate affect, appropriate insight left breast less tender, appears now symmetric with right breast Objective Data Active Medications Acetaminophen (Acetaminophen 325 Mg Tablet) 650 mg PO Q8H PRN PRN Reason: Fever Last Admin: 04/30/22 23:27 Dose: 650 mg Documented By: CARMITA Baclofen (Baclofen 10 Mg Tablet) 10 mg PO DAILY ON LICENSE OF [facility] Last Admin: 05/04/22 08:16 Dose: 10 mg Documented By: MANJIT Docusate Sodium (Docusate Sodium 100 Mg Capsule) 100 mg PO BID ON LICENSE OF [facility] Last Admin: 05/04/22 08:16 Dose: 100 mg Documented By: MANJIT Enoxaparin Sodium (Enoxaparin Sodium 40 Mg/0.4 Ml Syringe) 40 mg SUBCUT Q24H ON LICENSE OF [facility] Last Admin: 05/04/22 08:15 Dose: 40 mg Documented By: MANJIT Fluoxetine HCl (Fluoxetine Hcl 20 Mg Capsule) 40 mg PO DAILY ON LICENSE OF [facility] Last Admin: 05/04/22 08:16 Dose: 40 mg Documented By: MANJIT Gabapentin (Gabapentin 600 Mg Tablet) 600 mg PO TID ON LICENSE OF [facility] Last Admin: 05/04/22 08:16 Dose: 600 mg Documented By: MANJIT Hydrochlorothiazide (Hydrochlorothiazide 12.5 Mg Tablet) 12.5 mg PO DAILY ON LICENSE OF [facility] Last Admin: 04/27/22 08:44 Dose: 12.5 mg Documented By: CRISTOPHER Cefazolin Sodium/Dextrose (Ancef) 2 gm in 50 mls @ 100 mls/hr IV Q8H ON LICENSE OF [facility] Last Infusion: 05/04/22 08:51 Dose: 0 mls/hr Documented By: MANJIT Insulin Glargine (Insulin Glargine,Hum.Rec.Anlog 100 Unit/Ml 10 Ml Vial) 10 unit SUBCUT BEDTIME ON LICENSE OF [facility] Last Admin: 05/03/22 21:36 Dose: 10 unit Documented By: MICK Insulin Human Lispro (Insulin Lispro 100 Unit/Ml 3 Ml Vial) 0 unit SUBCUT QIDACHS ON LICENSE OF [facility]; Protocol Last Admin: 05/04/22 08:12 Dose: Not Given Documented By: MANJIT Non-Admin Reason: No Insulin Coverage Lamotrigine (Lamotrigine 25 Mg Tablet) 25 mg PO BID ON LICENSE OF [facility] Last Admin: 05/04/22 08:16 Dose: 25 mg Documented By: MANJIT Lisinopril (Lisinopril 20 Mg Tablet) 20 mg PO DAILY ON LICENSE OF [facility] Last Admin: 04/27/22 08:44 Dose: 20 mg Documented By: CRISTOPHER Magnesium Oxide (Magnesium Oxide 400 Mg Tablet) 400 mg PO BIDPC ON LICENSE OF [facility] Last Admin: 05/04/22 08:16 Dose: 400 mg Documented By: MANJIT Methadone HCl (Methadone Hcl 20 Mg/2 Ml Oral.Conc) 107 mg PO DAILY ON LICENSE OF [facility] Last Admin: 05/04/22 08:16 Dose: 107 mg Documented By: MANJIT Omeprazole (Omeprazole 20 Mg Capsule.Dr) 20 mg PO DAILY@0630 ON LICENSE OF [facility] Last Admin: 05/04/22 06:19 Dose: 20 mg Documented By: ZANDRA Pharmacy Consult (Consult Rx Perform Med Rec) 1 each MISCELLANE ONCE PRN PRN Reason: Consult order Pharmacy Consult (Consult Rx Vancomycin Dosing) 1 each MISCELLANE DAILY PRN PRN Reason: Consult order Pharmacy Consult (Consult Rx Vancomycin Dosing) 1 each MISCELLANE DAILY PRN PRN Reason: Consult order Polyethylene Glycol (Polyethylene Glycol 3350 17 Gm Powd.Pack) 17 gm PO DAILY ON LICENSE OF [facility] Last Admin: 05/04/22 08:15 Dose: 17 gm Documented By: MANJIT Labs CBC & Chem 7: 05/02/22 09:40 05/02/22 06:22 Labs: Laboratory Results - last 24 hr 05/03/22 05/03/22 05/03/22 11:12 15:59 20:04 POC Glucose 279 H 234 H 348 H 05/04/22 07:35 POC Glucose 143 H Microbiology Microbiology Results: Microbiology 05/01/22 06:35 Blood Culture - Preliminary Blood - Venous No growth after 48 hours. 05/01/22 06:35 Blood Culture - Preliminary Blood - Venous No growth after 48 hours. Assessment and Plan (1) MSSA bacteremia: Status: Acute (2) Acute kidney injury: Status: Acute (3) Acute respiratory failure: Status: Acute (4) Sepsis: Status: Acute Plan 56 years old w PMH of drug abuse, DMII, CKD, neuropathy, HTN who presenteed to the hospital with agitation and delirium 2/2 drug abuse requiting intubation and ventilation in ICU complicated by PAPO and Rhabdo. extubated 04/24. Sepsis 2/2 MSSA bacteremia no clear source of infection, XR negative, echo negative for vegetations, negative UA Blood cultures grew MSSA from 04/28/22 changed to cefazolin, repeat cultures 05/01/22 negative so far, eventual plan for picc tomorrow 05/05/22 ID appreciated - 2 weeks total from negative culture, end may 11, 2022 left breast discomfort US negative outpatient mammogram PAPO on CKD stage 3 2/2 Rhabdomyolysis at admission, resolved Toxic metabolic encephalopathy 2/2 drug intoxication, delerium resolved increase physical activity and do PT avoid meds that might alter her mentation Acute hypoxic respiratory failure resolved, on room air opiate dependence continue methadone type 2 DM SSI, lantus diabetic diet HTN lisinopril, HCTZ DVT PPx Lovenox reason for continued hospitalization:awaiting culture clearance Quality Stroke Does the patient have a stroke diagnosis?: No VTE Prior VTE?: No VTE Risk Level:: Medical - moderate - high VTE Device Contraindication: N/A - Device Ordered VTE Drug Contraindication: Treatment Not Indicated
[2022-05-04 11:33] LABS: Glucose, Whole Blood 373 mg/dL (60-115)
[2022-05-04 11:52] VITALS: BP 145/75; PULSE 85; RESP 16; TEMP 37.1; O2SAT 98
[2022-05-04] MEDS: Insulin Lispro 100 UNIT/ML 3 ML VIAL SUBCUT ×3 (12:08→21:14)
[2022-05-04 16:00] VITALS: BP 115/58; PULSE 69; RESP 19; TEMP 36.6; O2SAT 95
[2022-05-04 16:23] LABS: Glucose, Whole Blood 230 mg/dL (60-115)
[2022-05-04] MEDS: Calcium Carbonate 750 MG TAB.CHEW PO (17:05)
[2022-05-04 19:56] VITALS: BP 159/75; PULSE 80; RESP 18; TEMP 36.4; O2SAT 96
[2022-05-04 20:46] LABS: Glucose, Whole Blood 252 mg/dL (60-115)
[2022-05-04] MEDS: Insulin Glargine,Hum.rec.anlog 100 UNIT/ML 10 ML VIAL 10 UNIT SUBCUT (21:15)
[2022-05-04 23:17] VITALS: BP 156/73; PULSE 79; RESP 20; TEMP 36.3; O2SAT 95
[2022-05-05] VITALS (7 sets, daily range): BP systolic 146–197; BP diastolic 71–80; PULSE 67–79; RESP 16–19; TEMP 36.4–37.1; O2SAT 95–96
[2022-05-05] MEDS: ceFAZolin Sodium/Dextrose,Iso 2 GM/50 ML PIGGYBACK IV ×3 (01:34→16:08)
[2022-05-05] MEDS: Omeprazole 20 MG CAPSULE.DR PO (05:40)
[2022-05-05 07:50] LABS: Glucose, Whole Blood 217 mg/dL (60-115)
--- NOTE | 2022-05-05 08:20 | MHC.CM.PN ---
Addendum entered by Jacque Rivera 05/05/22 15:13: [facility] anticipates having an open bed tomorrow for our patient. The IMM was provided and a copy was placed on the chart. The patient was informed that smoking privledges are 3 x a day 2 cigs. She verbalized concern that the PT rooms do not have Television. Original Note: Female MSSA Bacteremia [facility] for IV ABX. A clinical update has been sent to [facility]. ID note recommends IV ABX continue with an end date 05/14/22. DP [facility] for IV ABX via BLS.
[2022-05-05] MEDS: methADONE HCl 20 MG/2 ML ORAL.CONC 107 MG PO (08:34)
[2022-05-05] MEDS: Insulin Lispro 100 UNIT/ML 3 ML VIAL SUBCUT ×4 (08:35→21:29)
[2022-05-05] MEDS: Enoxaparin Sodium 40 MG/0.4 ML SYRINGE SUBCUT (08:35)
[2022-05-05] MEDS: Docusate Sodium 100 MG CAPSULE PO ×2 (08:36→21:30)
[2022-05-05] MEDS: FLUoxetine HCl 20 MG CAPSULE 40 MG PO (08:36)
[2022-05-05] MEDS: Gabapentin 600 MG TABLET PO ×3 (08:36→21:30)
[2022-05-05] MEDS: polyethylene glycoL 3350 17 GM POWD.PACK PO (08:36)
[2022-05-05] MEDS: Magnesium Oxide 400 MG TABLET PO ×2 (08:36→17:23)
[2022-05-05] MEDS: lamoTRIgine 25 MG TABLET PO ×2 (08:36→21:30)
[2022-05-05] MEDS: Baclofen 10 MG TABLET PO (08:36)
--- NOTE | 2022-05-05 11:28 | P.PNIM_ITS ---
Subjective Subjective Date of Service: 05/05/22 Interval History: cc: ams interval history: no complaints Cardiovascular Cardiovascular: Reports no additional cardiovascular complaints Respiratory Respiratory: Reports no additional respiratory complaints Physical Exam Vital Signs: Vital Signs: Last Vital Signs Temp 97.5 F 05/05/22 07:37 Pulse 67 05/05/22 07:37 Resp 16 05/05/22 07:37 BP 163/74 H 05/05/22 07:37 Pulse Ox 95 05/05/22 07:37 O2 Del Method 05/05/22 07:37 O2 Flow Rate 3 04/28/22 15:42 FiO2 30 04/24/22 10:00 BMI result Body Mass Index 0.0 General: AO X 3, no acute distress Resp: CTA bilateral, no accessory muscles used CVS: S1,S2,RRR GI: soft, non tender, non distended Neuro: motor grossly intact, alert Psych: appropriate affect, appropriate insight left breast less tender, appears now symmetric with right breast Objective Data Active Medications Acetaminophen (Acetaminophen 325 Mg Tablet) 650 mg PO Q8H PRN PRN Reason: Fever Last Admin: 04/30/22 23:27 Dose: 650 mg Documented By: CARMITA Baclofen (Baclofen 10 Mg Tablet) 10 mg PO DAILY [facility] Last Admin: 05/05/22 08:36 Dose: 10 mg Documented By: ZOHAIB Docusate Sodium (Docusate Sodium 100 Mg Capsule) 100 mg PO BID [facility] Last Admin: 05/05/22 08:36 Dose: 100 mg Documented By: ZOHAIB Enoxaparin Sodium (Enoxaparin Sodium 40 Mg/0.4 Ml Syringe) 40 mg SUBCUT Q24H [facility] Last Admin: 05/05/22 08:35 Dose: 40 mg Documented By: ZOHAIB Fluoxetine HCl (Fluoxetine Hcl 20 Mg Capsule) 40 mg PO DAILY [facility] Last Admin: 05/05/22 08:36 Dose: 40 mg Documented By: ZOHAIB Gabapentin (Gabapentin 600 Mg Tablet) 600 mg PO TID [facility] Last Admin: 05/05/22 08:36 Dose: 600 mg Documented By: ZOHAIB Hydrochlorothiazide (Hydrochlorothiazide 12.5 Mg Tablet) 12.5 mg PO DAILY [facility] Last Admin: 04/27/22 08:44 Dose: 12.5 mg Documented By: CRISTOPHER Cefazolin Sodium/Dextrose (Ancef) 2 gm in 50 mls @ 100 mls/hr IV Q8H [facility] Last Infusion: 05/05/22 09:29 Dose: 0 mls/hr Documented By: ZOHAIB Insulin Glargine (Insulin Glargine,Hum.Rec.Anlog 100 Unit/Ml 10 Ml Vial) 10 unit SUBCUT BEDTIME [facility] Last Admin: 05/04/22 21:15 Dose: 10 unit Documented By: AMANDA Insulin Human Lispro (Insulin Lispro 100 Unit/Ml 3 Ml Vial) 0 unit SUBCUT QIDACHS [facility]; Protocol Last Admin: 05/05/22 08:35 Dose: 4 unit Documented By: ZOHAIB Lamotrigine (Lamotrigine 25 Mg Tablet) 25 mg PO BID [facility] Last Admin: 05/05/22 08:36 Dose: 25 mg Documented By: ZOHAIB Lisinopril (Lisinopril 20 Mg Tablet) 20 mg PO DAILY [facility] Last Admin: 04/27/22 08:44 Dose: 20 mg Documented By: CRISTOPHER Magnesium Oxide (Magnesium Oxide 400 Mg Tablet) 400 mg PO BIDPC [facility] Last Admin: 05/05/22 08:36 Dose: 400 mg Documented By: ZOHAIB Methadone HCl (Methadone Hcl 20 Mg/2 Ml Oral.Conc) 107 mg PO DAILY [facility] Last Admin: 05/05/22 08:34 Dose: 107 mg Documented By: ZOHAIB Omeprazole (Omeprazole 20 Mg Capsule.Dr) 20 mg PO DAILY@0630 [facility] Last Admin: 05/05/22 05:40 Dose: 20 mg Documented By: BRENDA Pharmacy Consult (Consult Rx Perform Med Rec) 1 each MISCELLANE ONCE PRN PRN Reason: Consult order Pharmacy Consult (Consult Rx Vancomycin Dosing) 1 each MISCELLANE DAILY PRN PRN Reason: Consult order Pharmacy Consult (Consult Rx Vancomycin Dosing) 1 each MISCELLANE DAILY PRN PRN Reason: Consult order Polyethylene Glycol (Polyethylene Glycol 3350 17 Gm Powd.Pack) 17 gm PO DAILY [facility] Last Admin: 05/05/22 08:36 Dose: 17 gm Documented By: ZOHAIB Labs CBC & Chem 7: 05/02/22 09:40 05/02/22 06:22 Labs: Laboratory Results - last 24 hr 05/04/22 05/04/22 05/04/22 11:29 16:18 20:39 POC Glucose 373 H* 230 H 252 H 05/05/22 07:44 POC Glucose 217 H Assessment and Plan (1) MSSA bacteremia: Status: Acute (2) Acute kidney injury: Status: Acute (3) Acute respiratory failure: Status: Acute (4) Sepsis: Status: Acute Plan 56 years old w PMH of drug abuse, DMII, CKD, neuropathy, HTN who presenteed to the hospital with agitation and delirium 2/2 drug abuse requiting intubation and ventilation in ICU complicated by PAPO and Rhabdo. extubated 04/24. Sepsis 2/2 MSSA bacteremia no clear source of infection, XR negative, echo negative for vegetations, negative UA Blood cultures grew MSSA from 04/28/22 changed to cefazolin, repeat cultures 05/01/22 negative so far ID appreciated - 2 weeks total from negative culture, end may 14, 2022 left breast discomfort US negative outpatient mammogram PAPO on CKD stage 3 2/2 Rhabdomyolysis at admission, resolved Toxic metabolic encephalopathy 2/2 drug intoxication, delerium resolved increase physical activity and do PT avoid meds that might alter her mentation Acute hypoxic respiratory failure resolved, on room air opiate dependence continue methadone type 2 DM SSI, lantus diabetic diet HTN lisinopril, HCTZ DVT PPx Lovenox reason for continued hospitalization:awaiting culture clearance Quality Stroke Does the patient have a stroke diagnosis?: No VTE Prior VTE?: No VTE Risk Level:: Medical - moderate - high VTE Device Contraindication: N/A - Device Ordered VTE Drug Contraindication: Treatment Not Indicated
[2022-05-05 11:29] LABS: Glucose, Whole Blood 263 mg/dL (60-115)
[2022-05-05 16:34] LABS: Glucose, Whole Blood 204 mg/dL (60-115)
[2022-05-05 16:43] LABS: Glucose, Whole Blood 211 mg/dL (60-115)
[2022-05-05 19:31] LABS: Glucose, Whole Blood 297 mg/dL (60-115)
[2022-05-05] MEDS: Insulin Glargine,Hum.rec.anlog 100 UNIT/ML 10 ML VIAL 10 UNIT SUBCUT (21:29)
--- NOTE | 2022-05-06 00:07 | PM.EVENT ---
Event Note Date of Service: 05/06/22 Event Note: Pt lost iv access and refusing placement of another one at this hour. she understands the importance of the iv abx and agreeable for another attempt in am
[2022-05-06] MEDS: ceFAZolin Sodium/Dextrose,Iso 2 GM/50 ML PIGGYBACK IV ×3 (01:06→16:36)
[2022-05-06 03:43] VITALS: BP 168/74; PULSE 78; RESP 18; TEMP 36.2; O2SAT 95
[2022-05-06] MEDS: Acetaminophen 325 MG TABLET 650 MG PO (04:09)
--- NOTE | 2022-05-06 04:24 | PC.NURSE ---
0000; patient lost iv access and after two attempts, patient refused another iv. Hospitalist made aware. This nurse spoke with patient again, patient allowed one more try for an iv; agricultural crop farm manager placed an iv in the right hand. Patient tolerated well. Antibiotic started.
[2022-05-06] MEDS: Enoxaparin Sodium 40 MG/0.4 ML SYRINGE SUBCUT (06:43)
[2022-05-06] MEDS: Magnesium Oxide 400 MG TABLET PO ×2 (06:44→16:36)
[2022-05-06] MEDS: Omeprazole 20 MG CAPSULE.DR PO (06:44)
[2022-05-06 07:18] LABS: Glucose, Whole Blood 272 mg/dL (60-115)
[2022-05-06 07:28] VITALS: BP 170/70; PULSE 81; RESP 20; TEMP 36.6; O2SAT 95
[2022-05-06] MEDS: Gabapentin 600 MG TABLET PO ×3 (08:57→20:55)
[2022-05-06] MEDS: polyethylene glycoL 3350 17 GM POWD.PACK PO (08:57)
[2022-05-06] MEDS: Docusate Sodium 100 MG CAPSULE PO ×2 (08:58→20:55)
[2022-05-06] MEDS: Baclofen 10 MG TABLET PO (08:58)
[2022-05-06] MEDS: lamoTRIgine 25 MG TABLET PO ×2 (08:58→20:55)
[2022-05-06] MEDS: FLUoxetine HCl 20 MG CAPSULE 40 MG PO (08:58)
[2022-05-06] MEDS: methADONE HCl 20 MG/2 ML ORAL.CONC 107 MG PO (08:58)
[2022-05-06] MEDS: Insulin Lispro 100 UNIT/ML 3 ML VIAL SUBCUT ×4 (09:00→20:55)
--- NOTE | 2022-05-06 10:00 | P.PNIM_ITS ---
Subjective Subjective Date of Service: 05/06/22 Interval History: cc: ams interval history: no complaints Cardiovascular Cardiovascular: Reports no additional cardiovascular complaints Respiratory Respiratory: Reports no additional respiratory complaints Physical Exam Vital Signs: Vital Signs: Last Vital Signs Temp 97.8 F 05/06/22 07:28 Pulse 81 05/06/22 07:28 Resp 20 05/06/22 07:28 BP 170/70 H 05/06/22 07:28 Pulse Ox 95 05/06/22 07:28 O2 Del Method 05/06/22 07:28 O2 Flow Rate 3 04/28/22 15:42 FiO2 97 05/05/22 18:52 BMI result Body Mass Index 0.0 General: AO X 3, no acute distress Resp: CTA bilateral, no accessory muscles used CVS: S1,S2,RRR GI: soft, non tender, non distended Neuro: motor grossly intact, alert Psych: appropriate affect, appropriate insight left breast less tender, appears now symmetric with right breast Objective Data Active Medications Acetaminophen (Acetaminophen 325 Mg Tablet) 650 mg PO Q8H PRN PRN Reason: Fever Last Admin: 05/06/22 04:09 Dose: 650 mg Documented By: GALEN Baclofen (Baclofen 10 Mg Tablet) 10 mg PO DAILY [facility] Last Admin: 05/06/22 08:58 Dose: 10 mg Documented By: GALEN Docusate Sodium (Docusate Sodium 100 Mg Capsule) 100 mg PO BID [facility] Last Admin: 05/06/22 08:58 Dose: 100 mg Documented By: GALEN Enoxaparin Sodium (Enoxaparin Sodium 40 Mg/0.4 Ml Syringe) 40 mg SUBCUT Q24H [facility] Last Admin: 05/06/22 06:43 Dose: 40 mg Documented By: GALEN Fluoxetine HCl (Fluoxetine Hcl 20 Mg Capsule) 40 mg PO DAILY [facility] Last Admin: 05/06/22 08:58 Dose: 40 mg Documented By: GALEN Gabapentin (Gabapentin 600 Mg Tablet) 600 mg PO TID [facility] Last Admin: 05/06/22 08:57 Dose: 600 mg Documented By: GALEN Hydrochlorothiazide (Hydrochlorothiazide 12.5 Mg Tablet) 12.5 mg PO DAILY [facility] Last Admin: 04/27/22 08:44 Dose: 12.5 mg Documented By: CRISTOPHER Cefazolin Sodium/Dextrose (Ancef) 2 gm in 50 mls @ 100 mls/hr IV Q8H [facility] Last Infusion: 05/06/22 09:27 Dose: 0 mls/hr Documented By: GALEN Insulin Glargine (Insulin Glargine,Hum.Rec.Anlog 100 Unit/Ml 10 Ml Vial) 10 unit SUBCUT BEDTIME [facility] Last Admin: 05/05/22 21:29 Dose: 10 unit Documented By: TRAVON Insulin Human Lispro (Insulin Lispro 100 Unit/Ml 3 Ml Vial) 0 unit SUBCUT QIDACHS [facility]; Protocol Last Admin: 05/06/22 09:00 Dose: 6 unit Documented By: GALEN Lamotrigine (Lamotrigine 25 Mg Tablet) 25 mg PO BID [facility] Last Admin: 05/06/22 08:58 Dose: 25 mg Documented By: GALEN Lisinopril (Lisinopril 20 Mg Tablet) 20 mg PO DAILY [facility] Last Admin: 04/27/22 08:44 Dose: 20 mg Documented By: CRISTOPHER Magnesium Oxide (Magnesium Oxide 400 Mg Tablet) 400 mg PO BIDPC [facility] Last Admin: 05/06/22 06:44 Dose: 400 mg Documented By: GALEN Methadone HCl (Methadone Hcl 20 Mg/2 Ml Oral.Conc) 107 mg PO DAILY [facility] Last Admin: 05/06/22 08:58 Dose: 107 mg Documented By: GALEN Omeprazole (Omeprazole 20 Mg Capsule.Dr) 20 mg PO DAILY@0630 [facility] Last Admin: 05/06/22 06:44 Dose: 20 mg Documented By: GALEN Pharmacy Consult (Consult Rx Perform Med Rec) 1 each MISCELLANE ONCE PRN PRN Reason: Consult order Pharmacy Consult (Consult Rx Vancomycin Dosing) 1 each MISCELLANE DAILY PRN PRN Reason: Consult order Pharmacy Consult (Consult Rx Vancomycin Dosing) 1 each MISCELLANE DAILY PRN PRN Reason: Consult order Polyethylene Glycol (Polyethylene Glycol 3350 17 Gm Powd.Pack) 17 gm PO DAILY [facility] Last Admin: 05/06/22 08:57 Dose: 17 gm Documented By: GALEN Labs CBC & Chem 7: 05/02/22 09:40 05/02/22 06:22 Labs: Laboratory Results - last 24 hr 05/05/22 05/05/22 05/05/22 11:21 16:31 16:35 POC Glucose 263 H 204 H 211 H 05/05/22 05/06/22 19:26 07:11 POC Glucose 297 H 272 H Microbiology Microbiology Results: Microbiology 05/01/22 06:35 Blood Culture - Final Blood - Venous No growth after 5 days. 05/01/22 06:35 Blood Culture - Final Blood - Venous No growth after 5 days. Assessment and Plan (1) MSSA bacteremia: Status: Acute (2) Acute kidney injury: Status: Acute (3) Acute respiratory failure: Status: Acute (4) Sepsis: Status: Acute Plan 56 years old w PMH of drug abuse, DMII, CKD, neuropathy, HTN who presenteed to the hospital with agitation and delirium 2/2 drug abuse requiting intubation and ventilation in ICU complicated by PAPO and Rhabdo. extubated 04/24. Sepsis 2/2 MSSA bacteremia no clear source of infection, XR negative, echo negative for vegetations, negative UA Blood cultures grew MSSA from 04/28/22 changed to cefazolin, repeat cultures 05/01/22 ID appreciated - 2 weeks total from negative culture, end may 14, 2022 will need facility set up prior to picc left breast discomfort US negative outpatient mammogram PAPO on CKD stage 3 2/2 Rhabdomyolysis at admission, resolved Toxic metabolic encephalopathy 2/2 drug intoxication, delerium resolved increase physical activity and do PT avoid meds that might alter her mentation Acute hypoxic respiratory failure resolved, on room air opiate dependence continue methadone type 2 DM SSI, lantus diabetic diet HTN lisinopril, HCTZ DVT PPx Lovenox reason for continued hospitalization:awaiting facility set up Quality Stroke Does the patient have a stroke diagnosis?: No VTE Prior VTE?: No VTE Risk Level:: Medical - moderate - high VTE Device Contraindication: N/A - Device Ordered VTE Drug Contraindication: Treatment Not Indicated
[2022-05-06 11:11] VITALS: BP 139/67; PULSE 78; RESP 20; TEMP 36.7; O2SAT 94
[2022-05-06 11:25] LABS: Glucose, Whole Blood 303 mg/dL (60-115)
[2022-05-06] MEDS: bisacodyL 10 MG SUPP.RECT PR (14:43)
[2022-05-06 16:00] VITALS: BP 179/82; PULSE 86; RESP 17; TEMP 36.7; O2SAT 94
[2022-05-06 16:38] LABS: Glucose, Whole Blood 163 mg/dL (60-115)
[2022-05-06 19:18] VITALS: BP 176/79; PULSE 84; RESP 18; TEMP 37.1; O2SAT 96
[2022-05-06 20:21] LABS: Glucose, Whole Blood 269 mg/dL (60-115)
[2022-05-06] MEDS: Insulin Glargine,Hum.rec.anlog 100 UNIT/ML 10 ML VIAL 10 UNIT SUBCUT (20:55)
[2022-05-06 23:25] VITALS: BP 184/79; PULSE 81; RESP 20; TEMP 37.3; O2SAT 100
[2022-05-07] MEDS: ceFAZolin Sodium/Dextrose,Iso 2 GM/50 ML PIGGYBACK IV ×3 (00:34→16:49)
[2022-05-07 03:19] VITALS: BP 159/72; PULSE 70; RESP 16; TEMP 36.6; O2SAT 97
[2022-05-07] MEDS: Omeprazole 20 MG CAPSULE.DR PO (06:37)
[2022-05-07 07:22] LABS: Glucose, Whole Blood 188 mg/dL (60-115)
[2022-05-07 07:24] VITALS: BP 153/70; PULSE 70; RESP 18; TEMP 36.4; O2SAT 95
[2022-05-07] MEDS: Insulin Lispro 100 UNIT/ML 3 ML VIAL SUBCUT ×4 (08:01→21:35)
[2022-05-07] MEDS: FLUoxetine HCl 20 MG CAPSULE 40 MG PO (08:02)
[2022-05-07] MEDS: Enoxaparin Sodium 40 MG/0.4 ML SYRINGE SUBCUT (08:02)
[2022-05-07] MEDS: Docusate Sodium 100 MG CAPSULE PO ×2 (08:02→21:34)
[2022-05-07] MEDS: methADONE HCl 20 MG/2 ML ORAL.CONC 107 MG PO (08:02)
[2022-05-07] MEDS: lamoTRIgine 25 MG TABLET PO ×2 (08:02→21:35)
[2022-05-07] MEDS: Magnesium Oxide 400 MG TABLET PO ×2 (08:02→16:49)
[2022-05-07] MEDS: Baclofen 10 MG TABLET PO (08:02)
[2022-05-07] MEDS: Gabapentin 600 MG TABLET PO ×3 (08:02→21:34)
[2022-05-07] MEDS: polyethylene glycoL 3350 17 GM POWD.PACK PO (08:03)
[2022-05-07 11:16] LABS: Glucose, Whole Blood 281 mg/dL (60-115)
[2022-05-07 11:27] VITALS: BP 124/60; PULSE 76; RESP 18; TEMP 36.2; O2SAT 93
--- NOTE | 2022-05-07 14:37 | P.PNIM_ITS ---
Subjective Subjective Date of Service: 05/07/22 Interval History: The patient was seen and evaluated this morning Feels much better, waiting placement Blood cultures negative for 5 days No reported other overnight events. Systemic review: No fever, chills but reports generalized weakness No chest pain, palpitation No shortness of breath or coughing No abdominal pain, nausea or vomiting No urinary symptoms No any rash or wounds lower extremities tingling and weakness Physical Exam Vital Signs: Vital Signs: Last Vital Signs Temp 97.2 F 05/07/22 11:27 Pulse 76 05/07/22 11:27 Resp 18 05/07/22 11:27 BP 124/60 05/07/22 11:27 Pulse Ox 93 05/07/22 11:27 O2 Del Method 05/07/22 11:27 O2 Flow Rate 3 04/28/22 15:42 FiO2 97 05/05/22 18:52 BMI result Body Mass Index 0.0 Const: Other: Constitutional : Alert, interactive , not in distress Neck : Normal inspection, Supple Cardiovascular : RRR, no JVP, no lower extremity edema Respiratory : fair bilateral air entry, no crackles, wheezes or rhonchi Gastrointestinal: soft, lax, Normal bowel sounds, no tenderness with no surgical signs Skin : Warm, Dry Neurological : Alert & oriented x3, No focal deficit Objective Data Active Medications Acetaminophen (Acetaminophen 325 Mg Tablet) 650 mg PO Q8H PRN PRN Reason: Fever Last Admin: 05/06/22 04:09 Dose: 650 mg Documented By: GALEN Baclofen (Baclofen 10 Mg Tablet) 10 mg PO DAILY [facility] Last Admin: 05/07/22 08:02 Dose: 10 mg Documented By: GISELL Docusate Sodium (Docusate Sodium 100 Mg Capsule) 100 mg PO BID [facility] Last Admin: 05/07/22 08:02 Dose: 100 mg Documented By: GISELL Enoxaparin Sodium (Enoxaparin Sodium 40 Mg/0.4 Ml Syringe) 40 mg SUBCUT Q24H [facility] Last Admin: 05/07/22 08:02 Dose: 40 mg Documented By: GISELL Fluoxetine HCl (Fluoxetine Hcl 20 Mg Capsule) 40 mg PO DAILY [facility] Last Admin: 05/07/22 08:02 Dose: 40 mg Documented By: GISELL Gabapentin (Gabapentin 600 Mg Tablet) 600 mg PO TID [facility] Last Admin: 05/07/22 08:02 Dose: 600 mg Documented By: GISELL Hydrochlorothiazide (Hydrochlorothiazide 12.5 Mg Tablet) 12.5 mg PO DAILY [facility] Last Admin: 04/27/22 08:44 Dose: 12.5 mg Documented By: CRISTOPHER Cefazolin Sodium/Dextrose (Ancef) 2 gm in 50 mls @ 100 mls/hr IV Q8H [facility] Last Infusion: 05/07/22 09:14 Dose: 0 mls/hr Documented By: GISELL Insulin Glargine (Insulin Glargine,Hum.Rec.Anlog 100 Unit/Ml 10 Ml Vial) 10 unit SUBCUT BEDTIME [facility] Last Admin: 05/06/22 20:55 Dose: 10 unit Documented By: SARA Insulin Human Lispro (Insulin Lispro 100 Unit/Ml 3 Ml Vial) 0 unit SUBCUT QI DACHS [facility]; Protocol Last Admin: 05/07/22 11:42 Dose: 6 unit Documented By: GISELL Lamotrigine (Lamotrigine 25 Mg Tablet) 25 mg PO BID [facility] Last Admin: 05/07/22 08:02 Dose: 25 mg Documented By: GISELL Lisinopril (Lisinopril 20 Mg Tablet) 20 mg PO DAILY [facility] Last Admin: 04/27/22 08:44 Dose: 20 mg Documented By: CRISTOPHER Magnesium Oxide (Magnesium Oxide 400 Mg Tablet) 400 mg PO BIDPC [facility] Last Admin: 05/07/22 08:02 Dose: 400 mg Documented By: GISELL Methadone HCl (Methadone Hcl 20 Mg/2 Ml Oral.Conc) 107 mg PO DAILY [facility] Last Admin: 05/07/22 08:02 Dose: 107 mg Documented By: GISELL Omeprazole (Omeprazole 20 Mg Capsule.Dr) 20 mg PO DAILY@0630 [facility] Last Admin: 05/07/22 06:37 Dose: 20 mg Documented By: MAU Pharmacy Consult (Consult Rx Perform Med Rec) 1 each MISCELLANE ONCE PRN PRN Reason: Consult order Pharmacy Consult (Consult Rx Vancomycin Dosing) 1 each MISCELLANE DAILY PRN PRN Reason: Consult order Polyethylene Glycol (Polyethylene Glycol 3350 17 Gm Powd.Pack) 17 gm PO DAILY [facility] Last Admin: 05/07/22 08:03 Dose: 17 gm Documented By: GISELL Labs CBC & Chem 7: 05/02/22 09:40 05/02/22 06:22 Labs: Laboratory Results - last 24 hr 05/06/22 05/06/22 05/07/22 16:30 20:14 06:54 POC Glucose 163 H 269 H 188 H 05/07/22 11:04 POC Glucose 281 H Assessment and Plan (1) Opioid use disorder: Status: Acute (2) MSSA bacteremia: Status: Acute Plan 56 years old w PMH of drug abuse, DMII, CKD, neuropathy, HTN who presenteed to the hospital with agitation and delirium 2/2 drug abuse requiting intubation and ventilation in ICU complicated by PAPO and Rhabdo. extubated 04/24. Sepsis 2/2 MSSA bacteremia no clear source of infection, XR negative, echo negative for vegetations, negative UA Blood cultures grew MSSA from 04/28/22 changed to cefazolin, repeat cultures 05/01/22 ID appreciated - 2 weeks total from negative culture, end may 14, 2022 will need facility set up prior to picc left breast discomfort US negative outpatient mammogram PAPO on CKD stage 3 2/2 Rhabdomyolysis at admission, resolved Toxic metabolic encephalopathy 2/2 drug intoxication, delerium resolved increase physical activity and do PT avoid meds that might alter her mentation Acute hypoxic respiratory failure resolved, on room air opiate dependence continue methadone type 2 DM SSI, lantus diabetic diet HTN lisinopril, HCTZ DVT PPx Lovenox reason for continued hospitalization:awaiting facility set up and midline placement for safe discharge plan Quality Stroke Does the patient have a stroke diagnosis?: No VTE Prior VTE?: No VTE Risk Level:: Medical - moderate - high VTE Device Contraindication: N/A - Device Ordered VTE Drug Contraindication: Treatment Not Indicated
--- NOTE | 2022-05-07 15:35 | MHC.CM.PN ---
bed search continues for pt no beds at this time
[2022-05-07 15:39] VITALS: BP 148/73; PULSE 79; RESP 18; TEMP 36.9; O2SAT 96
[2022-05-07 16:16] LABS: Glucose, Whole Blood 152 mg/dL (60-115)
[2022-05-07 20:00] VITALS: BP 186/81; PULSE 79; RESP 18; TEMP 36.6; O2SAT 95
[2022-05-07 20:13] LABS: Glucose, Whole Blood 264 mg/dL (60-115)
[2022-05-07] MEDS: Insulin Glargine,Hum.rec.anlog 100 UNIT/ML 10 ML VIAL 10 UNIT SUBCUT (21:36)
[2022-05-07] MEDS: Acetaminophen 325 MG TABLET 650 MG PO (21:41)
[2022-05-07 23:08] VITALS: BP 165/74; PULSE 84; RESP 16; TEMP 37; O2SAT 97
[2022-05-08] MEDS: ceFAZolin Sodium/Dextrose,Iso 2 GM/50 ML PIGGYBACK IV ×3 (02:15→16:43)
[2022-05-08 03:11] VITALS: BP 145/66; PULSE 75; RESP 16; TEMP 36.8; O2SAT 96
[2022-05-08] MEDS: Omeprazole 20 MG CAPSULE.DR PO (05:44)
[2022-05-08 07:17] LABS: Glucose, Whole Blood 230 mg/dL (60-115)
[2022-05-08 07:25] VITALS: BP 167/68; PULSE 72; RESP 18; TEMP 36.7; O2SAT 95
[2022-05-08] MEDS: Insulin Lispro 100 UNIT/ML 3 ML VIAL SUBCUT ×4 (08:32→21:46)
[2022-05-08] MEDS: FLUoxetine HCl 20 MG CAPSULE 40 MG PO (08:33)
[2022-05-08] MEDS: Gabapentin 600 MG TABLET PO ×3 (08:33→21:47)
[2022-05-08] MEDS: methADONE HCl 20 MG/2 ML ORAL.CONC 107 MG PO (08:33)
[2022-05-08] MEDS: Enoxaparin Sodium 40 MG/0.4 ML SYRINGE SUBCUT (08:33)
[2022-05-08] MEDS: Docusate Sodium 100 MG CAPSULE PO ×2 (08:33→21:47)
[2022-05-08] MEDS: Baclofen 10 MG TABLET PO (08:33)
[2022-05-08] MEDS: lamoTRIgine 25 MG TABLET PO ×2 (08:33→21:47)
[2022-05-08] MEDS: polyethylene glycoL 3350 17 GM POWD.PACK PO (08:34)
[2022-05-08] MEDS: Magnesium Oxide 400 MG TABLET PO ×2 (08:34→16:43)
[2022-05-08 11:33] LABS: Glucose, Whole Blood 191 mg/dL (60-115)
[2022-05-08 12:00] VITALS: BP 145/72; PULSE 78; RESP 18; TEMP 36.1; O2SAT 93
--- NOTE | 2022-05-08 12:20 | HO.PM.IMPN ---
Subjective Subjective Date of Service: 05/08/22 Interval History: The patient was seen and evaluated this morning Feels much better, waiting placement No reported other overnight events. Systemic review: No fever, chills but reports generalized weakness No chest pain, palpitation No shortness of breath or coughing No abdominal pain, nausea or vomiting No urinary symptoms lower extremities tingling and weakness Physical Exam Vital Signs: Vital Signs: Last Vital Signs Temp 98.1 F 05/08/22 07:25 Pulse 72 05/08/22 07:25 Resp 18 05/08/22 07:25 BP 167/68 H 05/08/22 07:25 Pulse Ox 95 05/08/22 07:25 O2 Del Method 05/08/22 07:25 O2 Flow Rate 3 04/28/22 15:42 FiO2 97 05/05/22 18:52 BMI result Body Mass Index 0.0 Const: Other: Constitutional : Alert, interactive , not in distress Neck : Normal inspection, Supple Cardiovascular : RRR, no JVP, no lower extremity edema Respiratory : fair bilateral air entry, no crackles, wheezes or rhonchi Gastrointestinal: soft, lax, Normal bowel sounds, no tenderness with no surgical signs Skin : Warm, Dry Neurological : Alert & oriented x3, No focal deficit Objective Data Active Medications Acetaminophen (Acetaminophen 325 Mg Tablet) 650 mg PO Q8H PRN PRN Reason: Fever Last Admin: 05/07/22 21:41 Dose: 650 mg Documented By: RANJIT Baclofen (Baclofen 10 Mg Tablet) 10 mg PO DAILY [facility] Last Admin: 05/08/22 08:33 Dose: 10 mg Documented By: BRYAN Docusate Sodium (Docusate Sodium 100 Mg Capsule) 100 mg PO BID [facility] Last Admin: 05/08/22 08:33 Dose: 100 mg Documented By: BRYAN Enoxaparin Sodium (Enoxaparin Sodium 40 Mg/0.4 Ml Syringe) 40 mg SUBCUT Q24H [facility] Last Admin: 05/08/22 08:33 Dose: 40 mg Documented By: BRYAN Fluoxetine HCl (Fluoxetine Hcl 20 Mg Capsule) 40 mg PO DAILY [facility] Last Admin: 05/08/22 08:33 Dose: 40 mg Documented By: BRYAN Gabapentin (Gabapentin 600 Mg Tablet) 600 mg PO TID [facility] Last Admin: 05/08/22 08:33 Dose: 600 mg Documented By: BRYAN Hydrochlorothiazide (Hydrochlorothiazide 12.5 Mg Tablet) 12.5 mg PO DAILY [facility] Last Admin: 04/27/22 08:44 Dose: 12.5 mg Documented By: CRISTOPHER Cefazolin Sodium/Dextrose (Ancef) 2 gm in 50 mls @ 100 mls/hr IV Q8H [facility] Last Infusion: 05/08/22 09:18 Dose: 0 mls/hr Documented By: BRYAN Insulin Glargine (Insulin Glargine,Hum.Rec.Anlog 100 Unit/Ml 10 Ml Vial) 10 unit SUBCUT BEDTIME [facility] Last Admin: 05/07/22 21:36 Dose: 10 unit Documented By: RANJIT Insulin Human Lispro (Insulin Lispro 100 Unit/Ml 3 Ml Vial) 0 unit SUBCUT QIDACHS [facility]; Protocol Last Admin: 05/08/22 11:40 Dose: 2 unit Documented By: BRYAN Lamotrigine (Lamotrigine 25 Mg Tablet) 25 mg PO BID [facility] Last Admin: 05/08/22 08:33 Dose: 25 mg Documented By: BRYAN Lisinopril (Lisinopril 20 Mg Tablet) 20 mg PO DAILY [facility] Last Admin: 04/27/22 08:44 Dose: 20 mg Documented By: CRISTOPHER Magnesium Oxide (Magnesium Oxide 400 Mg Tablet) 400 mg PO BIDPC [facility] Last Admin: 05/08/22 08:34 Dose: 400 mg Documented By: BRYAN Methadone HCl (Methadone Hcl 20 Mg/2 Ml Oral.Conc) 107 mg PO DAILY [facility] Last Admin: 05/08/22 08:33 Dose: 107 mg Documented By: BRYAN Omeprazole (Omeprazole 20 Mg Capsule.Dr) 20 mg PO DAILY@0630 [facility] Last Admin: 05/08/22 05:44 Dose: 20 mg Documented By: RANJIT Pharmacy Consult (Consult Rx Perform Med Rec) 1 each MISCELLANE ONCE PRN PRN Reason: Consult order Pharmacy Consult (Consult Rx Vancomycin Dosing) 1 each MISCELLANE DAILY PRN PRN Reason: Consult order Polyethylene Glycol (Polyethylene Glycol 3350 17 Gm Powd.Pack) 17 gm PO DAILY [facility] Last Admin: 05/08/22 08:34 Dose: 17 gm Documented By: BRYAN Labs CBC & Chem 7: 05/02/22 09:40 05/02/22 06:22 Labs: Laboratory Results - last 24 hr 05/07/22 05/07/22 05/08/22 16:12 19:49 06:54 POC Glucose 152 H 264 H 230 H 05/08/22 11:28 POC Glucose 191 H Assessment and Plan (1) MSSA bacteremia: Status: Acute Plan 56 years old w PMH of drug abuse, DMII, CKD, neuropathy, HTN who presenteed to the hospital with agitation and delirium 2/2 drug abuse requiting intubation and ventilation in ICU complicated by PAPO and Rhabdo. extubated 04/24. Sepsis 2/2 MSSA bacteremia no clear source of infection, XR negative, echo negative for vegetations, negative UA, negative blood cultures on day of admission. Blood cultures grew MSSA from 04/28/22 changed to [email or web address], repeat cultures 05/01/22 negative ID appreciated - 2 weeks total from negative culture, end may 14, 2022 will need facility set up prior to picc left breast discomfort US negative outpatient mammogram PAPO on CKD stage 3 2/2 Rhabdomyolysis at admission, resolved Toxic metabolic encephalopathy 2/2 drug intoxication, delerium resolved increase physical activity and do PT avoid meds that might alter her mentation Acute hypoxic respiratory failure resolved, on room air opiate dependence continue methadone type 2 DM SSI, lantus diabetic diet HTN lisinopril, HCTZ DVT PPx Lovenox reason for continued hospitalization:awaiting facility set up and midline placement for safe discharge plan Quality Stroke Does the patient have a stroke diagnosis?: No VTE Prior VTE?: No VTE Risk Level:: Medical - moderate - high VTE Device Contraindication: N/A - Device Ordered VTE Drug Contraindication: Treatment Not Indicated
[2022-05-08 15:44] LABS: Glucose, Whole Blood 249 mg/dL (60-115)
[2022-05-08 15:54] VITALS: BP 174/76; PULSE 72; RESP 16; TEMP 37; O2SAT 94
[2022-05-08 19:09] VITALS: BP 165/78; PULSE 73; RESP 16; TEMP 36.8; O2SAT 97
[2022-05-08 20:15] LABS: Glucose, Whole Blood 204 mg/dL (60-115)
[2022-05-08] MEDS: Insulin Glargine,Hum.rec.anlog 100 UNIT/ML 10 ML VIAL 10 UNIT SUBCUT (21:47)
[2022-05-08 23:27] VITALS: BP 180/80; PULSE 75; RESP 14; TEMP 36.8; O2SAT 94
[2022-05-09] MEDS: ceFAZolin Sodium/Dextrose,Iso 2 GM/50 ML PIGGYBACK IV ×3 (00:28→16:52)
[2022-05-09] MEDS: Acetaminophen 325 MG TABLET 650 MG PO (01:04)
[2022-05-09 03:00] VITALS: BP 165/64; PULSE 70; RESP 18; TEMP 36.6; O2SAT 98
[2022-05-09 06:36] LABS: Hematocrit 29.7 % (37.0-47.0); Mean Corpuscular HGB Conc 30.3 g/dl (31.0-35.0); Mean Corpuscular Hemoglobin 28.1 pg (27.0-33.0); Mean Corpuscular Volume 92.8 fL (80.0-98.0); Mean Platelet Volume 10.6 fL (9.4-12.3); Platelet Count 290 X10*3/uL (160-400); White Blood Count 9.4 X10*3/uL (4.8-10.8)
[2022-05-09 06:55] LABS: Anion Gap 19 (12-20); Blood Urea Nitrogen 21 mg/dL (9-16); Carbon Dioxide 22 mmol/L (22-29); Chloride 100 mmol/L (96-108); Creatinine Clr Calc Pharmacy 86.9; Estimated Glomerular Filt Rate > 60; Glucose Random 176 mg/dL (60-115); Potassium 5.1 mmol/L (3.3-5.1); Sodium 136 mmol/L (135-145)
[2022-05-09 07:22] LABS: Glucose, Whole Blood 150 mg/dL (60-115)
[2022-05-09 07:33] VITALS: BP 151/70; PULSE 62; RESP 20; TEMP 36.6; O2SAT 98
[2022-05-09] MEDS: FLUoxetine HCl 20 MG CAPSULE 40 MG PO (09:06)
[2022-05-09] MEDS: lamoTRIgine 25 MG TABLET PO ×2 (09:08→21:08)
[2022-05-09] MEDS: Magnesium Oxide 400 MG TABLET PO ×2 (09:08→16:51)
[2022-05-09] MEDS: Gabapentin 600 MG TABLET PO ×3 (09:09→21:08)
[2022-05-09] MEDS: Enoxaparin Sodium 40 MG/0.4 ML SYRINGE SUBCUT (09:15)
[2022-05-09] MEDS: methADONE HCl 20 MG/2 ML ORAL.CONC 107 MG PO (09:17)
[2022-05-09] MEDS: Sodium Polystyrene Sulfon/Sorb 15 GM/60 ML ORAL.SUSP PO (09:31)
[2022-05-09] MEDS: Baclofen 10 MG TABLET PO (09:38)
[2022-05-09 11:04] LABS: Glucose, Whole Blood 272 mg/dL (60-115)
[2022-05-09 11:21] VITALS: BP 152/69; PULSE 67; RESP 17; TEMP 36.9; O2SAT 95
[2022-05-09] MEDS: Insulin Lispro 100 UNIT/ML 3 ML VIAL SUBCUT ×3 (11:49→21:08)
--- NOTE | 2022-05-09 13:37 | P.PNIM_ITS ---
Subjective Subjective Date of Service: 05/09/22 Interval History: The patient was seen and evaluated this morning Feels much better, waiting placement No reported other overnight events. Systemic review: No fever, chills but reports generalized weakness No chest pain, palpitation No shortness of breath or coughing No abdominal pain, nausea or vomiting No urinary symptoms lower extremities tingling and weakness Physical Exam Vital Signs: Vital Signs: Last Vital Signs Temp 98.5 F 05/09/22 11:21 Pulse 67 05/09/22 11:21 Resp 17 05/09/22 11:21 BP 152/69 H 05/09/22 11:21 Pulse Ox 95 05/09/22 11:21 O2 Del Method 05/09/22 11:21 O2 Flow Rate 3 04/28/22 15:42 FiO2 97 05/05/22 18:52 BMI result Body Mass Index 0.0 Const: Other: Constitutional : Alert, interactive , not in distress Neck : Normal inspection, Supple Cardiovascular : RRR, no JVP, no lower extremity edema Respiratory : fair bilateral air entry, no crackles, wheezes or rhonchi Gastrointestinal: soft, lax, Normal bowel sounds, no tenderness with no surgica l signs Skin : Warm, Dry Neurological : Alert & oriented x3, No focal deficit Objective Data Active Medications Acetaminophen (Acetaminophen 325 Mg Tablet) 650 mg PO Q8H PRN PRN Reason: Fever Last Admin: 05/09/22 01:04 Dose: 650 mg Documented By: BRENDA Baclofen (Baclofen 10 Mg Tablet) 10 mg PO DAILY [facility] Last Admin: 05/09/22 09:38 Dose: 10 mg Documented By: BRYAN Docusate Sodium (Docusate Sodium 100 Mg Capsule) 100 mg PO BID [facility] Last Admin: 05/09/22 10:38 Dose: Not Given Documented By: BRYAN Non-Admin Reason: diarrhea Enoxaparin Sodium (Enoxaparin Sodium 40 Mg/0.4 Ml Syringe) 40 mg SUBCUT Q24H [facility] Last Admin: 05/09/22 09:15 Dose: 40 mg Documented By: ADEN Fluoxetine HCl (Fluoxetine Hcl 20 Mg Capsule) 40 mg PO DAILY [facility] Last Admin: 05/09/22 09:06 Dose: 40 mg Documented By: ADEN Gabapentin (Gabapentin 600 Mg Tablet) 600 mg PO TID [facility] Last Admin: 05/09/22 09:09 Dose: 600 mg Documented By: ADEN Hydrochlorothiazide (Hydrochlorothiazide 12.5 Mg Tablet) 12.5 mg PO DAILY [facility] Last Admin: 04/27/22 08:44 Dose: 12.5 mg Documented By: CRISTOPHER Cefazolin Sodium/Dextrose (Ancef) 2 gm in 50 mls @ 100 mls/hr IV Q8H [facility] Last Infusion: 05/09/22 10:39 Dose: 0 mls/hr Documented By: BRYAN Insulin Glargine (Insulin Glargine,Hum.Rec.Anlog 100 Unit/Ml 10 Ml Vial) 10 unit SUBCUT BEDTIME [facility] Last Admin: 05/08/22 21:47 Dose: 10 unit Documented By: BRENDA Insulin Human Lispro (Insulin Lispro 100 Unit/Ml 3 Ml Vial) 0 unit SUBCUT QIDACHS [facility]; Protocol Last Admin: 05/09/22 11:49 Dose: 6 unit Documented By: BRYAN Lamotrigine (Lamotrigine 25 Mg Tablet) 25 mg PO BID [facility] Last Admin: 05/09/22 09:08 Dose: 25 mg Documented By: ADEN Lisinopril (Lisinopril 20 Mg Tablet) 20 mg PO DAILY [facility] Last Admin: 04/27/22 08:44 Dose: 20 mg Documented By: CRISTOPHER Magnesium Oxide (Magnesium Oxide 400 Mg Tablet) 400 mg PO BIDPC [facility] Last Admin: 05/09/22 09:08 Dose: 400 mg Documented By: ADEN Methadone HCl (Methadone Hcl 20 Mg/2 Ml Oral.Conc) 107 mg PO DAILY [facility] Last Admin: 05/09/22 09:17 Dose: 107 mg Documented By: ADEN Omeprazole (Omeprazole 20 Mg Capsule.Dr) 20 mg PO DAILY@0630 [facility] Last Admin: 05/09/22 05:44 Dose: Not Given Documented By: BREDNA Non-Admin Reason: Patient Asleep Pharmacy Consult (Consult Rx Perform Med Rec) 1 each MISCELLANE ONCE PRN PRN Reason: Consult order Polyethylene Glycol (Polyethylene Glycol 3350 17 Gm Powd.Pack) 17 gm PO DAILY [facility] Last Admin: 05/09/22 10:38 Dose: Not Given Documented By: BRYAN Non-Admin Reason: diarrhea Labs CBC & Chem 7: 05/09/22 06:21 05/09/22 06:21 Labs: Laboratory Results - last 24 hr 05/08/22 05/08/22 05/09/22 15:27 19:15 06:21 MCV 92.8 MCH 28.1 MCHC 30.3 L RDW 15.0 Plt Count 290 MPV 10.6 Absolute Nucleated RBC 0.000 Nucleated RBC % (auto) 0.0 Anion Gap Estim Creat Clear Calc Estimated GFR POC Glucose 249 H 204 H Random Glucose Calcium 05/09/22 05/09/22 05/09/22 06:21 07:03 10:55 MCV MCH MCHC RDW Plt Count MPV Absolute Nucleated RBC Nucleated RBC % (auto) Anion Gap 19 Estim Creat Clear Calc 86.9 Estimated GFR > 60 POC Glucose 150 H 272 H Random Glucose 176 H Calcium 9.0 Assessment and Plan (1) MSSA bacteremia: Status: Acute (2) Opioid use disorder: Status: Acute (3) Positive blood culture: Status: Acute Plan 56 years old w PMH of drug abuse, DMII, CKD, neuropathy, HTN who presenteed to the hospital with agitation and delirium 2/2 drug abuse requiting intubation and ventilation in ICU complicated by PAPO and Rhabdo. extubated 04/24. Sepsis 2/2 MSSA bacteremia no clear source of infection, XR negative, echo negative for vegetations, negative UA Blood cultures grew MSSA from 04/28/22 changed to cefazolin, repeat cultures? 05/01/22 ID appreciated - 2 weeks total from negative culture, end may 14, 2022 will need facility set up prior to picc left breast discomfort US negative outpatient mammogram PAPO on CKD stage 3 2/2 Rhabdomyolysis at admission, resolved Toxic metabolic encephalopathy 2/2 drug intoxication, delerium resolved increase physical activity and do PT avoid meds that might alter her mentation Acute hypoxic respiratory failure resolved, on room air opiate dependence continue methadone type 2 DM SSI, lantus diabetic diet HTN lisinopril, HCTZ DVT PPx Lovenox reason for continued hospitalization:awaiting facility set up and midline placement for safe discharge plan Quality Stroke Does the patient have a stroke diagnosis?: No VTE Prior VTE?: No VTE Risk Level:: Medical - moderate - high VTE Device Contraindication: N/A - Device Ordered VTE Drug Contraindication: Treatment Not Indicated
[2022-05-09 15:17] VITALS: BP 176/81; PULSE 69; RESP 17; TEMP 36.3; O2SAT 96
--- NOTE | 2022-05-09 15:56 | MHC.CM.PN ---
per rounds pt is ready for dc bed search continues
[2022-05-09 16:02] LABS: Glucose, Whole Blood 155 mg/dL (60-115)
[2022-05-09 19:43] LABS: Glucose, Whole Blood 246 mg/dL (60-115)
[2022-05-09 20:00] VITALS: BP 168/74; PULSE 77; RESP 18; TEMP 36.6; O2SAT 94
[2022-05-09] MEDS: Insulin Glargine,Hum.rec.anlog 100 UNIT/ML 10 ML VIAL 10 UNIT SUBCUT (21:08)
[2022-05-09] MEDS: Docusate Sodium 100 MG CAPSULE PO (21:08)
[2022-05-10] VITALS (7 sets, daily range): BP systolic 142–171; BP diastolic 67–83; PULSE 75–90; RESP 16–20; TEMP 36.2–36.8; O2SAT 95–98; BMI 26.6
[2022-05-10] MEDS: ceFAZolin Sodium/Dextrose,Iso 2 GM/50 ML PIGGYBACK IV ×3 (00:31→17:23)
[2022-05-10 07:43] LABS: Glucose, Whole Blood 269 mg/dL (60-115)
[2022-05-10] MEDS: lisinopriL 20 MG TABLET PO (08:49)
[2022-05-10] MEDS: FLUoxetine HCl 20 MG CAPSULE 40 MG PO (08:49)
[2022-05-10] MEDS: Docusate Sodium 100 MG CAPSULE PO ×2 (08:49→21:18)
[2022-05-10] MEDS: Magnesium Oxide 400 MG TABLET PO ×2 (08:49→17:23)
[2022-05-10] MEDS: Baclofen 10 MG TABLET PO ×3 (08:49→21:18)
[2022-05-10] MEDS: lamoTRIgine 25 MG TABLET PO ×2 (08:49→21:18)
[2022-05-10] MEDS: Gabapentin 600 MG TABLET PO ×3 (08:49→21:18)
[2022-05-10] MEDS: polyethylene glycoL 3350 17 GM POWD.PACK PO (08:49)
[2022-05-10] MEDS: hydroCHLOROthiazide 12.5 MG TABLET PO (08:49)
[2022-05-10] MEDS: Insulin Lispro 100 UNIT/ML 3 ML VIAL SUBCUT ×3 (08:50→17:23)
[2022-05-10] MEDS: Insulin Glargine,Hum.rec.anlog 100 UNIT/ML 10 ML VIAL 10 UNIT SUBCUT (08:50)
[2022-05-10] MEDS: Enoxaparin Sodium 40 MG/0.4 ML SYRINGE SUBCUT (08:50)
[2022-05-10] MEDS: methADONE HCl 20 MG/2 ML ORAL.CONC 107 MG PO (08:51)
[2022-05-10 11:39] LABS: Glucose, Whole Blood 186 mg/dL (60-115)
--- NOTE | 2022-05-10 12:27 | HO.PM.IMPN ---
Subjective Subjective Date of Service: 05/10/22 Interval History: The patient was seen and evaluated this morning Feels good overall, waiting placement No reported other overnight events. Systemic review: No fever, chills but reports generalized weakness No chest pain, palpitation No shortness of breath or coughing No abdominal pain, nausea or vomiting No urinary symptoms lower extremities tingling and weakness Physical Exam Vital Signs: Vital Signs: Last Vital Signs Temp 98.0 F 05/10/22 11:07 Pulse 90 05/10/22 11:07 Resp 20 05/10/22 11:07 BP 146/70 H 05/10/22 11:07 Pulse Ox 98 05/10/22 11:07 O2 Del Method 05/10/22 11:07 O2 Flow Rate 93 05/10/22 00:00 FiO2 97 05/05/22 18:52 BMI result Body Mass Index 26.6 Const: Other: Constitutional : Alert, interactive , not in distress Neck : Normal inspection, Supple Cardiovascular : RRR, no JVP, no lower extremity edema Respiratory : fair bilateral air entry, no crackles, wheezes or rhonchi Gastrointestinal: soft, lax, Normal bowel sounds, no tenderness with no surgical signs Skin : Warm, Dry, Midline in place Neurological : Alert & oriented x3, No focal deficit Objective Data Active Medications Acetaminophen (Acetaminophen 325 Mg Tablet) 650 mg PO Q8H PRN PRN Reason: Fever Last Admin: 05/09/22 01:04 Dose: 650 mg Documented By: BRENDA Baclofen (Baclofen 10 Mg Tablet) 10 mg PO TID [facility] Docusate Sodium (Docusate Sodium 100 Mg Capsule) 100 mg PO BID [facility] Last Admin: 05/10/22 08:49 Dose: 100 mg Documented By: BRYAN Enoxaparin Sodium (Enoxaparin Sodium 40 Mg/0.4 Ml Syringe) 40 mg SUBCUT Q24H [facility] Last Admin: 05/10/22 08:50 Dose: 40 mg Documented By: BRYAN Fluoxetine HCl (Fluoxetine Hcl 20 Mg Capsule) 40 mg PO DAILY [facility] Last Admin: 05/10/22 08:49 Dose: 40 mg Documented By: BRYAN Gabapentin (Gabapentin 600 Mg Tablet) 600 mg PO TID [facility] Last Admin: 05/10/22 08:49 Dose: 600 mg Documented By: BRYAN Hydrochlorothiazide (Hydrochlorothiazide 12.5 Mg Tablet) 12.5 mg PO DAILY [facility] Last Admin: 05/10/22 08:49 Dose: 12.5 mg Documented By: BRYAN Cefazolin Sodium/Dextrose (Ancef) 2 gm in 50 mls @ 100 mls/hr IV Q8H [facility] Stop: 05/14/22 10:29 Last Infusion: 05/10/22 11:57 Dose: 0 mls/hr Documented By: BRYAN Insulin Glargine (Insulin Glargine,Hum.Rec.Anlog 100 Unit/Ml 10 Ml Vial) 20 unit SUBCUT BEDTIME [facility] Insulin Human Lispro (Insulin Lispro 100 Unit/Ml 3 Ml Vial) 0 unit SUBCUT QIDACHS [facility]; Protocol Last Admin: 05/10/22 08:50 Dose: 6 unit Documented By: BRYAN Lamotrigine (Lamotrigine 25 Mg Tablet) 25 mg PO BID [facility] Last Admin: 05/10/22 08:49 Dose: 25 mg Documented By: BRYAN Lisinopril (Lisinopril 20 Mg Tablet) 20 mg PO DAILY [facility] Last Admin: 05/10/22 08:49 Dose: 20 mg Documented By: BRYAN Magnesium Oxide (Magnesium Oxide 400 Mg Tablet) 400 mg PO BIDPC [facility] Last Admin: 05/10/22 08:49 Dose: 400 mg Documented By: BRYAN Methadone HCl (Methadone Hcl 20 Mg/2 Ml Oral.Conc) 107 mg PO DAILY [facility] Last Admin: 05/10/22 08:51 Dose: 107 mg Documented By: BRYAN Omeprazole (Omeprazole 20 Mg Capsule.Dr) 20 mg PO DAILY@0630 [facility] Last Admin: 05/10/22 06:56 Dose: Not Given Documented By: CARMITA Non-Admin Reason: Patient Refused Pharmacy Consult (Consult Rx Perform Med Rec) 1 each MISCELLANE ONCE PRN PRN Reason: Consult order Polyethylene Glycol (Polyethylene Glycol 3350 17 Gm Powd.Pack) 17 gm PO DAILY [facility] Last Admin: 05/10/22 08:49 Dose: 17 gm Documented By: BRYAN Labs CBC & Chem 7: 05/09/22 06:21 05/09/22 06:21 Labs: Laboratory Results - last 24 hr 05/09/22 05/09/22 05/10/22 15:55 19:23 07:14 POC Glucose 155 H 246 H 269 H 05/10/22 11:06 POC Glucose 186 H Assessment and Plan (1) MSSA bacteremia: Status: Acute Plan 56 years old w PMH of drug abuse, DMII, CKD, neuropathy, HTN who presenteed to the hospital with agitation and delirium 2/2 drug abuse requiting intubation and ventilation in ICU complicated by PAPO and Rhabdo. extubated 04/24. Sepsis 2/2 MSSA bacteremia no clear source of infection, XR negative, echo negative for vegetations, negative UA Blood cultures grew MSSA from 04/28/22 changed to cefazolin, repeat cultures?negative 05/01/22 ID appreciated - 2 weeks total from negative culture, end may 14, 2022 will need facility set up prior to picc left breast discomfort US negative outpatient mammogram PAPO on CKD stage 3 2/2 Rhabdomyolysis at admission, resolved Toxic metabolic encephalopathy 2/2 drug intoxication, delerium resolved increase physical activity and do PT avoid meds that might alter her mentation Acute hypoxic respiratory failure resolved, on room air opiate dependence continue methadone type 2 DM SSI, lantus diabetic diet HTN lisinopril, HCTZ DVT PPx Lovenox reason for continued inpatient hospitalization:awaiting facility set up placement for safe discharge plan Quality Stroke Does the patient have a stroke diagnosis?: No VTE Prior VTE?: No VTE Risk Level:: Medical - moderate - high VTE Device Contraindication: N/A - Device Ordered VTE Drug Contraindication: Treatment Not Indicated
[2022-05-10] MEDS: Simethicone 80 MG TAB.CHEW PO ×2 (14:49→17:32)
[2022-05-10 15:54] LABS: Glucose, Whole Blood 154 mg/dL (60-115)
[2022-05-10 19:50] LABS: Glucose, Whole Blood 213 mg/dL (60-115)
[2022-05-10] MEDS: Insulin Glargine,Hum.rec.anlog 100 UNIT/ML 10 ML VIAL 20 UNIT SUBCUT (21:21)
[2022-05-11] VITALS (7 sets, daily range): BP systolic 139–182; BP diastolic 69–81; PULSE 68–78; RESP 16–20; TEMP 36.2–36.4; O2SAT 95–99; BMI 26.4
[2022-05-11] MEDS: ceFAZolin Sodium/Dextrose,Iso 2 GM/50 ML PIGGYBACK IV ×3 (01:17→17:09)
[2022-05-11] MEDS: Omeprazole 20 MG CAPSULE.DR PO (06:09)
[2022-05-11 07:12] LABS: Glucose, Whole Blood 148 mg/dL (60-115)
[2022-05-11] MEDS: FLUoxetine HCl 20 MG CAPSULE 40 MG PO (08:58)
[2022-05-11] MEDS: methADONE HCl 20 MG/2 ML ORAL.CONC 107 MG PO (08:58)
[2022-05-11] MEDS: hydroCHLOROthiazide 12.5 MG TABLET PO (08:59)
[2022-05-11] MEDS: lisinopriL 20 MG TABLET PO (08:59)
[2022-05-11] MEDS: Magnesium Oxide 400 MG TABLET PO ×2 (08:59→16:28)
[2022-05-11] MEDS: polyethylene glycoL 3350 17 GM POWD.PACK PO (08:59)
[2022-05-11] MEDS: Gabapentin 600 MG TABLET PO ×3 (08:59→20:24)
[2022-05-11] MEDS: Docusate Sodium 100 MG CAPSULE PO ×2 (08:59→20:24)
[2022-05-11] MEDS: lamoTRIgine 25 MG TABLET PO ×2 (08:59→20:24)
[2022-05-11] MEDS: Baclofen 10 MG TABLET PO ×3 (08:59→20:24)
[2022-05-11] MEDS: Enoxaparin Sodium 40 MG/0.4 ML SYRINGE SUBCUT (09:00)
[2022-05-11] MEDS: Acetaminophen 325 MG TABLET 650 MG PO (09:21)
[2022-05-11 11:17] LABS: Glucose, Whole Blood 244 mg/dL (60-115)
[2022-05-11] MEDS: Insulin Lispro 100 UNIT/ML 3 ML VIAL SUBCUT ×3 (11:45→20:26)
--- NOTE | 2022-05-11 12:13 | P.PNIM_ITS ---
Subjective Subjective Date of Service: 05/11/22 Interval History: The patient was seen and evaluated this morning Feels good overall, waiting placement No reported other overnight events. Systemic review: No fever, chills but reports generalized weakness No chest pain, palpitation No shortness of breath or coughing No abdominal pain, nausea or vomiting No urinary symptoms lower extremities tingling and weakness Physical Exam Vital Signs: Vital Signs: Last Vital Signs Temp 97.5 F 05/11/22 11:38 Pulse 74 05/11/22 11:38 Resp 20 05/11/22 11:38 BP 147/71 H 05/11/22 11:38 Pulse Ox 96 05/11/22 11:38 O2 Del Method 05/11/22 11:38 O2 Flow Rate 93 05/10/22 00:00 FiO2 97 05/05/22 18:52 BMI result Body Mass Index 26.4 Const: Other: Constitutional : Alert, interactive , not in distress Neck : Normal inspection, Supple Cardiovascular : RRR, no JVP, no lower extremity edema Respiratory : fair bilateral air entry, no crackles, wheezes or rhonchi Gastrointestinal: soft, lax, Normal bowel sounds, no tenderness with no surgic al signs Skin : Warm, Dry, Midline in place Neurological : Alert & oriented x3, No focal deficit Objective Data Active Medications Acetaminophen (Acetaminophen 325 Mg Tablet) 650 mg PO Q8H PRN PRN Reason: Fever Last Admin: 05/11/22 09:21 Dose: 650 mg Documented By: BRENDA Baclofen (Baclofen 10 Mg Tablet) 10 mg PO TID [facility] Last Admin: 05/11/22 08:59 Dose: 10 mg Documented By: BRENDA Docusate Sodium (Docusate Sodium 100 Mg Capsule) 100 mg PO BID [facility] Last Admin: 05/11/22 08:59 Dose: 100 mg Documented By: BRENDA Enoxaparin Sodium (Enoxaparin Sodium 40 Mg/0.4 Ml Syringe) 40 mg SUBCUT Q24H [facility] Last Admin: 05/11/22 09:00 Dose: 40 mg Documented By: BRENDA Fluoxetine HCl (Fluoxetine Hcl 20 Mg Capsule) 40 mg PO DAILY [facility] Last Admin: 05/11/22 08:58 Dose: 40 mg Documented By: BRENDA Gabapentin (Gabapentin 600 Mg Tablet) 600 mg PO TID [facility] Last Admin: 05/11/22 08:59 Dose: 600 mg Documented By: BRENDA Hydrochlorothiazide (Hydrochlorothiazide 12.5 Mg Tablet) 12.5 mg PO DAILY [facility] Last Admin: 05/11/22 08:59 Dose: 12.5 mg Documented By: BRENDA Cefazolin Sodium/Dextrose (Ancef) 2 gm in 50 mls @ 100 mls/hr IV Q8H [facility] Stop: 05/14/22 10:29 Last Infusion: 05/11/22 11:39 Dose: 100 mls/hr Documented By: BRENDA Insulin Glargine (Insulin Glargine,Hum.Rec.Anlog 100 Unit/Ml 10 Ml Vial) 20 unit SUBCUT BEDTIME [facility] Last Admin: 05/10/22 21:21 Dose: 20 unit Documented By: SARA Insulin Human Lispro (Insulin Lispro 100 Unit/Ml 3 Ml Vial) 0 unit SUBCUT QIDACHS [facility]; Protocol Last Admin: 05/11/22 11:45 Dose: 4 unit Documented By: BRENDA Lamotrigine (Lamotrigine 25 Mg Tablet) 25 mg PO BID [facility] Last Admin: 05/11/22 08:59 Dose: 25 mg Documented By: BRENDA Lisinopril (Lisinopril 20 Mg Tablet) 20 mg PO DAILY [facility] Last Admin: 05/11/22 08:59 Dose: 20 mg Documented By: BRENDA Magnesium Oxide (Magnesium Oxide 400 Mg Tablet) 400 mg PO BIDPC [facility] Last Admin: 05/11/22 08:59 Dose: 400 mg Documented By: BRENDA Methadone HCl (Methadone Hcl 20 Mg/2 Ml Oral.Conc) 107 mg PO DAILY [facility] Last Admin: 05/11/22 08:58 Dose: 107 mg Documented By: BRENDA Omeprazole (Omeprazole 20 Mg Capsule.Dr) 20 mg PO DAILY@0630 [facility] Last Admin: 05/11/22 06:09 Dose: 20 mg Documented By: JOAQUINA Pharmacy Consult (Consult Rx Perform Med Rec) 1 each MISCELLANE ONCE PRN PRN Reason: Consult order Polyethylene Glycol (Polyethylene Glycol 3350 17 Gm Powd.Pack) 17 gm PO DAILY [facility] Last Admin: 05/11/22 08:59 Dose: 17 gm Documented By: BRENDA Simethicone (Simethicone 80 Mg Tab.Chew) 80 mg PO QIDWMHS PRN PRN Reason: Gas Last Admin: 05/10/22 17:32 Dose: 80 mg Documented By: SARA Labs CBC & Chem 7: 05/09/22 06:21 05/09/22 06:21 Labs: Laboratory Results - last 24 hr 05/10/22 05/10/22 05/11/22 15:48 19:43 07:01 POC Glucose 154 H 213 H 148 H 05/11/22 11:09 POC Glucose 244 H Assessment and Plan (1) MSSA bacteremia: Status: Acute Plan 56 years old w PMH of drug abuse, DMII, CKD, neuropathy, HTN who presenteed to the hospital with agitation and delirium 2/2 drug abuse requiting intubation and ventilation in ICU complicated by PAPO and Rhabdo. extubated 04/24. Sepsis 2/2 MSSA bacteremia no clear source of infection, XR negative, echo negative for vegetations, negative UA Blood cultures grew MSSA from 04/28/22 changed to cefazolin, repeat cultures?negative 05/01/22 ID appreciated - 2 weeks total from negative culture, end may 14, 2022 will need facility set up prior to picc left breast discomfort US negative outpatient mammogram PAPO on CKD stage 3 2/2 Rhabdomyolysis at admission, resolved Toxic metabolic encephalopathy 2/2 drug intoxication, delerium resolved increase physical activity and do PT avoid meds that might alter her mentation Acute hypoxic respiratory failure resolved, on room air opiate dependence continue methadone type 2 DM SSI, lantus diabetic diet HTN lisinopril, HCTZ DVT PPx Lovenox reason for continued inpatient hospitalization:awaiting facility set up placement for safe discharge plan Quality Stroke Does the patient have a stroke diagnosis?: No VTE Prior VTE?: No VTE Risk Level:: Medical - moderate - high VTE Device Contraindication: N/A - Device Ordered VTE Drug Contraindication: Treatment Not Indicated
[2022-05-11 16:09] LABS: Glucose, Whole Blood 182 mg/dL (60-115)
[2022-05-11 19:51] LABS: Glucose, Whole Blood 254 mg/dL (60-115)
[2022-05-11] MEDS: Insulin Glargine,Hum.rec.anlog 100 UNIT/ML 10 ML VIAL 20 UNIT SUBCUT (20:27)
[2022-05-12] MEDS: ceFAZolin Sodium/Dextrose,Iso 2 GM/50 ML PIGGYBACK IV ×2 (01:47→17:56)
[2022-05-12] MEDS: Omeprazole 20 MG CAPSULE.DR PO (05:11)
[2022-05-12 06:00] VITALS: BMI 25.7
[2022-05-12 07:15] VITALS: BP 148/65; PULSE 78; RESP 18; TEMP 36.8; O2SAT 95
[2022-05-12 07:28] LABS: Glucose, Whole Blood 149 mg/dL (60-115)
[2022-05-12] MEDS: polyethylene glycoL 3350 17 GM POWD.PACK PO (09:22)
[2022-05-12] MEDS: methADONE HCl 20 MG/2 ML ORAL.CONC 107 MG PO (09:22)
[2022-05-12] MEDS: Enoxaparin Sodium 40 MG/0.4 ML SYRINGE SUBCUT (09:22)
[2022-05-12] MEDS: lamoTRIgine 25 MG TABLET PO ×2 (09:23→22:16)
[2022-05-12] MEDS: FLUoxetine HCl 20 MG CAPSULE 40 MG PO (09:23)
[2022-05-12] MEDS: Baclofen 10 MG TABLET PO ×3 (09:23→22:17)
[2022-05-12] MEDS: hydroCHLOROthiazide 12.5 MG TABLET PO (09:23)
[2022-05-12] MEDS: Gabapentin 600 MG TABLET PO ×3 (09:23→22:17)
[2022-05-12] MEDS: Magnesium Oxide 400 MG TABLET PO ×2 (09:24→17:55)
[2022-05-12] MEDS: lisinopriL 20 MG TABLET PO (09:24)
[2022-05-12] MEDS: Docusate Sodium 100 MG CAPSULE PO ×2 (09:24→22:17)
[2022-05-12 11:12] VITALS: BP 163/65; PULSE 80; RESP 18; TEMP 36.6; O2SAT 98
[2022-05-12 11:18] LABS: Glucose, Whole Blood 319 mg/dL (60-115)
[2022-05-12] MEDS: Insulin Lispro 100 UNIT/ML 3 ML VIAL SUBCUT ×2 (11:30→22:19)
[2022-05-12 11:40] LABS: Anion Gap 18 (12-20); Blood Urea Nitrogen 20 mg/dL (9-16); Carbon Dioxide 25 mmol/L (22-29); Chloride 99 mmol/L (96-108); Creatinine Clr Calc Pharmacy 60.8; Estimated Glomerular Filt Rate 58; Glucose Random 330 mg/dL (60-115); Potassium 5.2 mmol/L (3.3-5.1); Sodium 137 mmol/L (135-145)
--- NOTE | 2022-05-12 12:11 | P.PNIM_ITS ---
Subjective Subjective Date of Service: 05/12/22 Interval History: The patient was seen and evaluated this morning Feels good overall, waiting placement Lower extremity swelling No reported other overnight events. Systemic review: No fever, chills but reports generalized weakness No chest pain, palpitation No shortness of breath or coughing No abdominal pain, nausea or vomiting No urinary symptoms lower extremities tingling and weakness with increased swelling Physical Exam Vital Signs: Vital Signs: Last Vital Signs Temp 97.8 F 05/12/22 11:12 Pulse 80 05/12/22 11:12 Resp 18 05/12/22 11:12 BP 163/65 H 05/12/22 11:12 Pulse Ox 98 05/12/22 11:12 O2 Del Method 05/12/22 11:12 O2 Flow Rate 93 05/10/22 00:00 FiO2 97 05/05/22 18:52 BMI result Body Mass Index 25.7 Const: Other: Constitutional : Alert, interactive , not in distress Neck : Normal inspection, Supple Cardiovascular : RRR, no JVP, bilateral +1 lower extremity edema Respiratory : fair bilateral air entry, no crackles, wheezes or rhonchi Gastrointestinal: soft, lax, Normal bowel sounds, no tenderness with no surgical signs Skin : Warm, Dry, Neurological : Alert & oriented x3, No focal deficit Objective Data Active Medications Acetaminophen (Acetaminophen 325 Mg Tablet) 650 mg PO Q8H PRN PRN Reason: Fever Last Admin: 05/11/22 09:21 Dose: 650 mg Documented By: BRENDA Baclofen (Baclofen 10 Mg Tablet) 10 mg PO TID COUNT INCLUDES [facility] Last Admin: 05/12/22 09:23 Dose: 10 mg Documented By: CRISTOPHER Docusate Sodium (Docusate Sodium 100 Mg Capsule) 100 mg PO BID COUNT INCLUDES [facility] Last Admin: 05/12/22 09:24 Dose: 100 mg Documented By: CRISTOPHER Enoxaparin Sodium (Enoxaparin Sodium 40 Mg/0.4 Ml Syringe) 40 mg SUBCUT Q24H COUNT INCLUDES THE [facility] Last Admin: 05/12/22 09:22 Dose: 40 mg Documented By: CRISTOPHER Fluoxetine HCl (Fluoxetine Hcl 20 Mg Capsule) 40 mg PO DAILY COUNT INCLUDES [facility] Last Admin: 05/12/22 09:23 Dose: 40 mg Documented By: CRISTOPHER Gabapentin (Gabapentin 600 Mg Tablet) 600 mg PO TID COUNT INCLUDES [facility] Last Admin: 05/12/22 09:23 Dose: 600 mg Documented By: CRISTOPHER Hydrochlorothiazide (Hydrochlorothiazide 12.5 Mg Tablet) 12.5 mg PO DAILY COUNT INCLUDES [facility] Last Admin: 05/12/22 09:23 Dose: 12.5 mg Documented By: CRISTOPHER Cefazolin Sodium/Dextrose (Ancef) 2 gm in 50 mls @ 100 mls/hr IV Q8H COUNT INCLUDES THE [facility] Stop: 05/14/22 10:29 Last Admin: 05/12/22 09:24 Dose: Not Given Documented By: CRISTOPHER Non-Admin Reason: No Access Insulin Glargine (Insulin Glargine,Hum.Rec.Anlog 100 Unit/Ml 10 Ml Vial) 20 unit SUBCUT BEDTIME COUNT INCLUDES THE [facility] Last Admin: 05/11/22 20:27 Dose: 20 unit Documented By: KARLEE Insulin Human Lispro (Insulin Lispro 100 Unit/Ml 3 Ml Vial) 0 unit SUBCUT QIDACHS COUNT INCLUDES THE [facility]; Protocol Last Admin: 05/12/22 11:30 Dose: 8 unit Documented By: CRISTOPHER Lamotrigine (Lamotrigine 25 Mg Tablet) 25 mg PO BID COUNT INCLUDES [facility] Last Admin: 05/12/22 09:23 Dose: 25 mg Documented By: CRISTOPHER Lisinopril (Lisinopril 20 Mg Tablet) 20 mg PO DAILY COUNT INCLUDES [facility] Last Admin: 05/12/22 09:24 Dose: 20 mg Documented By: CRISTOPHER Magnesium Oxide (Magnesium Oxide 400 Mg Tablet) 400 mg PO BIDPC COUNT INCLUDES THE [facility] Last Admin: 05/12/22 09:24 Dose: 400 mg Documented By: CRISTOPHER Methadone HCl (Methadone Hcl 20 Mg/2 Ml Oral.Conc) 107 mg PO DAILY COUNT INCLUDES [facility] Last Admin: 05/12/22 09:22 Dose: 107 mg Documented By: CRISTOPHER Omeprazole (Omeprazole 20 Mg Capsule.Dr) 20 mg PO DAILY@0630 COUNT INCLUDES [facility] Last Admin: 05/12/22 05:11 Dose: 20 mg Documented By: KARLEE Pharmacy Consult (Consult Rx Perform Med Rec) 1 each MISCELLANE ONCE PRN PRN Reason: Consult order Polyethylene Glycol (Polyethylene Glycol 3350 17 Gm Powd.Pack) 17 gm PO DAILY COUNT INCLUDES [facility] Last Admin: 05/12/22 09:22 Dose: 17 gm Documented By: CRISTOPHER Simethicone (Simethicone 80 Mg Tab.Chew) 80 mg PO QIDWMHS PRN PRN Reason: Gas Last Admin: 05/10/22 17:32 Dose: 80 mg Documented By: SARA Zolpidem Tartrate (Zolpidem Tartrate 5 Mg Tablet) 5 mg PO BEDTIME PRN PRN Reason: Insomnia Labs CBC & Chem 7: 05/09/22 06:21 05/12/22 10:45 Labs: Laboratory Results - last 24 hr 05/11/22 05/11/22 05/12/22 15:46 19:40 07:16 Anion Gap Estim Creat Clear Calc Estimated GFR POC Glucose 182 H 254 H 149 H Random Glucose Calcium 05/12/22 05/12/22 10:45 11:11 Anion Gap 18 Estim Creat Clear Calc 60.8 Estimated GFR 58 POC Glucose 319 H Random Glucose 330 H Calcium 9.0 Assessment and Plan (1) MSSA bacteremia: Status: Acute (2) Opioid use disorder: Status: Acute Plan 56 years old w PMH of drug abuse, DMII, CKD, neuropathy, HTN who presenteed to the hospital with agitation and delirium 2/2 drug abuse requiting intubation and ventilation in ICU complicated by PAPO and Rhabdo. extubated 04/24. Sepsis 2/2 MSSA bacteremia no clear source of infection, XR negative, echo negative for vegetations, negative UA Blood cultures grew MSSA from 04/28/22 changed to cefazolin, repeat cultures?negative 05/01/22 ID appreciated - 2 weeks total from negative culture, end may 14, 2022 will need facility set up prior to picc Bilateral lower extremity swelling Check BNP Patient reports that she has chronic edema that worsens sometimes Give Lasix No pain, erythema to suggest DVT left breast discomfort US negative outpatient mammogram PAPO on CKD stage 3 2/2 Rhabdomyolysis at admission, resolved Toxic metabolic encephalopathy 2/2 drug intoxication, delerium resolved increase physical activity and do PT avoid meds that might alter her mentation Acute hypoxic respiratory failure resolved, on room air opiate dependence continue methadone type 2 DM SSI, lantus diabetic diet HTN lisinopril, HCTZ DVT PPx Lovenox reason for continued inpatient hospitalization:awaiting facility set up placement for safe discharge plan Quality Stroke Does the patient have a stroke diagnosis?: No VTE Prior VTE?: No VTE Risk Level:: Medical - moderate - high VTE Device Contraindication: N/A - Device Ordered VTE Drug Contraindication: Treatment Not Indicated
[2022-05-12] MEDS: Furosemide 20 MG/2 ML VIAL IVPUSH (12:12)
[2022-05-12 12:53] LABS: B Type Natriuretic Peptide 118 pg/mL (<100)
[2022-05-12] MEDS: Sodium Polystyrene Sulfon/Sorb 15 GM/60 ML ORAL.SUSP 30 GM PO (13:49)
--- NOTE | 2022-05-12 15:01 | PC.NURSE ---
Pt has been refusing control valve mechanic since the beginning of shift. aware and notified (Reg)
[2022-05-12 15:37] VITALS: BP 130/62; PULSE 69; RESP 16; TEMP 36.5; O2SAT 93
[2022-05-12 16:12] LABS: Glucose, Whole Blood 143 mg/dL (60-115)
[2022-05-12 19:57] VITALS: BP 162/71; PULSE 78; RESP 18; TEMP 36.1; O2SAT 98
[2022-05-12 20:11] LABS: Glucose, Whole Blood 247 mg/dL (60-115)
[2022-05-12] MEDS: Insulin Glargine,Hum.rec.anlog 100 UNIT/ML 10 ML VIAL 20 UNIT SUBCUT (22:18)
[2022-05-12] MEDS: Simethicone 80 MG TAB.CHEW PO (22:59)
[2022-05-13] VITALS (7 sets, daily range): BP systolic 145–170; BP diastolic 67–74; PULSE 73–79; RESP 16–20; TEMP 36.2–37.1; O2SAT 94–98; BMI 25.9
[2022-05-13] MEDS: ceFAZolin Sodium/Dextrose,Iso 2 GM/50 ML PIGGYBACK IV ×3 (01:59→17:54)
[2022-05-13] MEDS: Omeprazole 20 MG CAPSULE.DR PO (06:16)
[2022-05-13 07:52] LABS: Glucose, Whole Blood 265 mg/dL (60-115)
[2022-05-13 09:15] LABS: B Type Natriuretic Peptide 79 pg/mL (<100)
[2022-05-13] MEDS: methADONE HCl 20 MG/2 ML ORAL.CONC 107 MG PO (10:26)
[2022-05-13] MEDS: Baclofen 10 MG TABLET PO ×3 (10:27→22:08)
[2022-05-13] MEDS: Enoxaparin Sodium 40 MG/0.4 ML SYRINGE SUBCUT (10:27)
[2022-05-13] MEDS: hydroCHLOROthiazide 12.5 MG TABLET PO (10:27)
[2022-05-13] MEDS: Insulin Lispro 100 UNIT/ML 3 ML VIAL SUBCUT ×4 (10:27→22:08)
[2022-05-13] MEDS: Docusate Sodium 100 MG CAPSULE PO ×2 (10:27→22:08)
[2022-05-13] MEDS: FLUoxetine HCl 20 MG CAPSULE 40 MG PO (10:28)
[2022-05-13] MEDS: polyethylene glycoL 3350 17 GM POWD.PACK PO (10:28)
[2022-05-13] MEDS: Gabapentin 600 MG TABLET PO ×3 (10:28→22:08)
[2022-05-13] MEDS: lamoTRIgine 25 MG TABLET PO ×2 (10:28→22:08)
[2022-05-13] MEDS: Magnesium Oxide 400 MG TABLET PO ×2 (10:28→17:50)
[2022-05-13] MEDS: lisinopriL 20 MG TABLET PO (10:28)
[2022-05-13 11:44] LABS: Glucose, Whole Blood 249 mg/dL (60-115)
--- NOTE | 2022-05-13 12:11 | P.PNIM_ITS ---
Subjective Subjective Date of Service: 05/13/22 Interval History: The patient was seen and evaluated this morning Feels good overall, waiting placement Reporting mild improvement in Lower extremity swelling No reported other overnight events. Systemic review: No fever, chills but reports generalized weakness No chest pain, palpitation No shortness of breath or coughing No abdominal pain, nausea or vomiting No urinary symptoms lower extremities tingling and weakness with increased swelling Physical Exam Vital Signs: Vital Signs: Last Vital Signs Temp 98.4 F 05/13/22 11:37 Pulse 73 05/13/22 11:37 Resp 18 05/13/22 11:37 BP 153/67 H 05/13/22 11:37 Pulse Ox 98 05/13/22 11:37 O2 Del Method 05/13/22 11:37 O2 Flow Rate 93 05/10/22 00:00 FiO2 97 05/05/22 18:52 BMI result Body Mass Index 25.9 Const: Other: Constitutional : Alert, interactive , not in distress Neck : Normal inspection, Supple Cardiovascular : RRR, no JVP, bilateral +1 lower extremity edema with no erythema or tenderness Respiratory : fair bilateral air entry, no crackles, wheezes or rhonchi Gastrointestinal: soft, lax, Normal bowel sounds, no tenderness with no surgical signs Skin : Warm, Dry, Neurological : Alert & oriented x3, No focal deficit Objective Data Active Medications Acetaminophen (Acetaminophen 325 Mg Tablet) 650 mg PO Q8H PRN PRN Reason: Fever Last Admin: 05/11/22 09:21 Dose: 650 mg Documented By: BRENDA Baclofen (Baclofen 10 Mg Tablet) 10 mg PO TID [facility] Last Admin: 05/13/22 10:27 Dose: 10 mg Documented By: MACEY Docusate Sodium (Docusate Sodium 100 Mg Capsule) 100 mg PO BID [facility] Last Admin: 05/13/22 10:27 Dose: 100 mg Documented By: MACEY Enoxaparin Sodium (Enoxaparin Sodium 40 Mg/0.4 Ml Syringe) 40 mg SUBCUT Q24H [facility] Last Admin: 05/13/22 10:27 Dose: 40 mg Documented By: MACEY Fluoxetine HCl (Fluoxetine Hcl 20 Mg Capsule) 40 mg PO DAILY [facility] Last Admin: 05/13/22 10:28 Dose: 40 mg Documented By: MACEY Gabapentin (Gabapentin 600 Mg Tablet) 600 mg PO TID [facility] Last Admin: 05/13/22 10:28 Dose: 600 mg Documented By: MACEY Hydrochlorothiazide (Hydrochlorothiazide 12.5 Mg Tablet) 12.5 mg PO DAILY [facility] Last Admin: 05/13/22 10:27 Dose: 12.5 mg Documented By: MACEY Cefazolin Sodium/Dextrose (Ancef) 2 gm in 50 mls @ 100 mls/hr IV Q8H [facility] Stop: 05/14/22 10:29 Last Infusion: 05/13/22 12:01 Dose: 0 mls/hr Documented By: MACEY Ibuprofen (Ibuprofen 200 Mg Tablet) 200 mg PO Q6H PRN PRN Reason: Pain, Moderate (Pain Scale 4-6 Insulin Glargine (Insulin Glargine,Hum.Rec.Anlog 100 Unit/Ml 10 Ml Vial) 20 unit SUBCUT BEDTIME [facility] Last Admin: 05/12/22 22:18 Dose: 20 unit Documented By: KARLEE Insulin Human Lispro (Insulin Lispro 100 Unit/Ml 3 Ml Vial) 0 unit SUBCUT QIDACHS [facility]; Protocol Last Admin: 05/13/22 10:27 Dose: 6 unit Documented By: MACEY Lamotrigine (Lamotrigine 25 Mg Tablet) 25 mg PO BID [facility] Last Admin: 05/13/22 10:28 Dose: 25 mg Documented By: MACEY Lisinopril (Lisinopril 20 Mg Tablet) 20 mg PO DAILY [facility] Last Admin: 05/13/22 10:28 Dose: 20 mg Documented By: MACEY Magnesium Oxide (Magnesium Oxide 400 Mg Tablet) 400 mg PO BIDPC [facility] Last Admin: 05/13/22 10:28 Dose: 400 mg Documented By: MACEY Methadone HCl (Methadone Hcl 20 Mg/2 Ml Oral.Conc) 107 mg PO DAILY [facility] Last Admin: 05/13/22 10:26 Dose: 107 mg Documented By: MACEY Omeprazole (Omeprazole 20 Mg Capsule.Dr) 20 mg PO DAILY@0630 [facility] Last Admin: 05/13/22 06:16 Dose: 20 mg Documented By: KARLEE Pharmacy Consult (Consult Rx Perform Med Rec) 1 each MISCELLANE ONCE PRN PRN Reason: Consult order Polyethylene Glycol (Polyethylene Glycol 3350 17 Gm Powd.Pack) 17 gm PO DAILY [facility] Last Admin: 05/13/22 10:28 Dose: 17 gm Documented By: MACEY Simethicone (Simethicone 80 Mg Tab.Chew) 80 mg PO QIDWMHS PRN PRN Reason: Gas Last Admin: 05/12/22 22:59 Dose: 80 mg Documented By: KARLEE Zolpidem Tartrate (Zolpidem Tartrate 5 Mg Tablet) 5 mg PO BEDTIME PRN PRN Reason: Insomnia Labs CBC & Chem 7: 05/09/22 06:21 05/12/22 10:45 Labs: Laboratory Results - last 24 hr 05/12/22 05/12/22 05/12/22 10:45 16:04 20:00 POC Glucose 143 H 247 H B-Natriuretic Peptide 118 H 05/13/22 05/13/22 05/13/22 06:25 07:43 11:38 POC Glucose 265 H 249 H B-Natriuretic Peptide 79 Assessment and Plan (1) MSSA bacteremia: Status: Acute (2) Opioid use disorder: Status: Acute Plan 56 years old w PMH of drug abuse, DMII, CKD, neuropathy, HTN who presenteed to the hospital with agitation and delirium 2/2 drug abuse requiting intubation and ventilation in ICU complicated by PAPO and Rhabdo. extubated 04/24. Sepsis 2/2 MSSA bacteremia no clear source of infection, XR negative, echo negative for vegetations, negative UA Blood cultures grew MSSA from 04/28/22 changed to cefazolin, repeat cultures?negative 05/01/22 ID appreciated - 2 weeks total from negative culture, end may 14, 2022 will need facility set up prior to picc Bilateral lower extremity swelling Low BNP Patient reports that she has chronic edema that worsens sometimes Give Lasix Bilateral, No pain, erythema will make it less likely to be DVT, to check Doppler left breast discomfort US negative outpatient mammogram PAPO on CKD stage 3 2/2 Rhabdomyolysis at admission, resolved Toxic metabolic encephalopathy 2/2 drug intoxication, delerium resolved increase physical activity and do PT avoid meds that might alter her mentation Acute hypoxic respiratory failure resolved, on room air opiate dependence continue methadone type 2 DM SSI, lantus diabetic diet HTN lisinopril, HCTZ DVT PPx Lovenox reason for continued inpatient hospitalization:awaiting facility set up placement for safe discharge plan Quality Stroke Does the patient have a stroke diagnosis?: No VTE Prior VTE?: No VTE Risk Level:: Medical - moderate - high VTE Device Contraindication: N/A - Device Ordered VTE Drug Contraindication: Treatment Not Indicated
[2022-05-13] MEDS: Furosemide 20 MG/2 ML VIAL IVPUSH (13:15)
--- NOTE | 2022-05-13 13:52 | P.CDIC_ITS ---
CDI Concurrent Query Documentation Clarification: PHYSICIAN'S DOCUMENTATION REQUEST Date of Query: 05/13/22 1357 Patient Name: Blank Rosas I Admit Date: 04/19/22 Dear Doctor, A review of the medical record indicates additional documentation may be needed. Please review below and update the documentation accordingly. Clinical Indicators: Is there a diagnosis that correlates with the findings below: Risk Factors/Clinical Indicators/Treatments LABS: POC on 05/12: 330 POC on 05/13: 265 Home Medications: Please clarify the following regarding Diabetes Mellitus (DM): * Hyperglycemia * Gastroparesis * No complications of DM * Other complication ? please specify * Unable to determine Use of terms such as suspected, likely, concern for, or probable (associated with a specific diagnosis that is being evaluated, monitored, or treated as if it exists) are acceptable and can be coded in the inpatient setting, when documented at the time of discharge. Thank you, Alexus Hua MS, RN, CCRN Extension: [phone] Please use your independent medical judgment in providing your response. THIS QUERY IS PART OF THE PERMANENT MEDICAL RECORD
[2022-05-13 15:54] LABS: Glucose, Whole Blood 192 mg/dL (60-115)
--- NOTE | 2022-05-13 19:29 | PC.NURSE ---
Patient was admitted for alter mental status from drug use. Patient had a camera in the room for safety observation. Camera saw patient take a small item that was hidden into the bathroom. Camera room thought it was a possibility of being drug related. Security was called. Security question patient. Patient denied having any drugs. Security did a quick sweep of the the bathroom, no evidence was found. Security left the room. Moment later, patient unplugged camera out the wall and rolled it down the chen. MD and nursing threshing department supervisor were notified of the situation.
[2022-05-13 20:57] LABS: Glucose, Whole Blood 189 mg/dL (60-115)
[2022-05-13] MEDS: Insulin Glargine,Hum.rec.anlog 100 UNIT/ML 10 ML VIAL 20 UNIT SUBCUT (22:09)
[2022-05-14] MEDS: ceFAZolin Sodium/Dextrose,Iso 2 GM/50 ML PIGGYBACK IV ×2 (02:07→10:15)
[2022-05-14 03:19] VITALS: BP 145/70; PULSE 64; RESP 16; TEMP 36.7; O2SAT 96
[2022-05-14] MEDS: Zolpidem Tartrate 5 MG TABLET PO (04:39)
[2022-05-14] MEDS: Omeprazole 20 MG CAPSULE.DR PO (04:50)
[2022-05-14 05:46] VITALS: BMI 25.3
[2022-05-14 07:26] VITALS: BP 151/74; PULSE 79; RESP 18; TEMP 36.4; O2SAT 98
[2022-05-14 07:33] LABS: Glucose, Whole Blood 135 mg/dL (60-115)
[2022-05-14] MEDS: methADONE HCl 20 MG/2 ML ORAL.CONC 107 MG PO (08:46)
[2022-05-14] MEDS: polyethylene glycoL 3350 17 GM POWD.PACK PO (08:46)
[2022-05-14] MEDS: FLUoxetine HCl 20 MG CAPSULE 40 MG PO (08:47)
[2022-05-14] MEDS: lisinopriL 20 MG TABLET PO (08:47)
[2022-05-14] MEDS: lamoTRIgine 25 MG TABLET PO (08:47)
[2022-05-14] MEDS: Gabapentin 600 MG TABLET PO (08:47)
[2022-05-14] MEDS: Magnesium Oxide 400 MG TABLET PO (08:47)
[2022-05-14] MEDS: hydroCHLOROthiazide 12.5 MG TABLET PO (08:47)
[2022-05-14] MEDS: Docusate Sodium 100 MG CAPSULE PO (08:47)
[2022-05-14] MEDS: Baclofen 10 MG TABLET PO (08:47)
[2022-05-14 10:57] LABS: Glucose, Whole Blood 234 mg/dL (60-115)
[2022-05-14 11:15] VITALS: BP 142/74; PULSE 79; RESP 16; TEMP 36.4; O2SAT 95
--- NOTE | 2022-05-14 11:34 | PM.DS ---
DS: Providers Provider Date of Service: 05/14/22 Date of admission: 04/19/22 14:42 Primary care physician: Walter Aiken MD Consults: 04/25/22 14:22 Addiction Medicine Routine Consulting Provider: Addiction Covering Reason for consultation: polysubstance abuse, behavioral disturbance 04/27/22 14:03 Consult to Infectious Diseases Routine Consulting Provider: Irish Haywood Reason for consultation: gram positive blood culture, no clear source of infx DS: Diagnosis Discharge Diagnosis (1) MSSA bacteremia: Status: Acute (2) Opioid use disorder: Status: Acute DS: Summary Hospital Course Hospital Course: from initial hpi: Chief Complaint: Altered mental status and delirium-polysubstance abuser If 56-year-old female who was found on the floor with visible hematomas on the forehead from hitting the floor and it is state of agitated delirium with fecal and urinary incontinence brought into the emergency room requiring 4 point restraints Sharee by multiple people certainly requiring stat imaging of her head need for signs of intracranial bleeding is a known polysubstance abuser consistently cocaine and opiates and fentanyl and apparently the same today with imaging showing a bilateral lung infiltrates benign abdomen small right subdural hematoma but very small without any mass effect and clearly because of self the destructive dangerous behavior needed IV sedation initially with higher doses of Versed and then eventually propofol and then of course for the sake of airway protection required intubation which went without complication no evidence of any secretions and there was nothing in the pharynx either and she remained on propofol and Versed drips and then eventually dexmedetomidine was to be added as well because she was markedly acutely hypertensive and tachycardic but this acute hyper sympathetic response seem to subside current pressure mean of 66 oxygen saturation 94% normal sinus rhythm and rate [address]-T changes by EKG hospital course: Patient was admitted for toxic metabolic encephalopathy due to drug intoxication complicated by delirium further complicated by acute hypoxic respiratory failure requiring ventilator support. Course was complicated by sepsis secondary to MSSA bacteremia. Echocardiogram was negative for vegetations. Blood cultures negative from 05/01/2022. She was seen by infectious disease recommended 2 weeks of cefazolin which was completed on 05/14/2022. Patient was noted to have left breast discomfort, ultrasound was negative, outpatient mammogram is recommended. On presentation patient acute kidney injury on CKD 3 due to rhabdomyolysis which resolved with IV fluids. For patient's opiate dependency to continue on methadone. For diabetes she was continued on insulin. For hypertension she was continued on lisinopril and hydrochlorothiazide. Patient is feeling better will be discharged home. Time Spent with Patient Time attestation: Total time spent providing and/or coordinating discharge services: Discharge coordination time: Greater than 30 minutes Quality: Safe Use of Opioids Does Pt have an Active Cancer Diagnosis on the Problem List?: No Quality: Stroke Does the patient have a stroke diagnosis?: No Physical Exam Vital Signs: Vital Signs: Last Vital Signs Temp 97.6 F 05/14/22 11:15 Pulse 79 05/14/22 11:15 Resp 16 05/14/22 11:15 BP 142/74 H 05/14/22 11:15 Pulse Ox 95 05/14/22 11:15 O2 Del Method 05/14/22 11:15 O2 Flow Rate 93 05/10/22 00:00 FiO2 97 05/05/22 18:52 BMI result Body Mass Index 25.3 Const: Other: Constitutional : Alert, interactive , not in distress Neck : Normal inspection, Supple Cardiovascular : RRR, no JVP, bilateral +1 lower extremity edema with no erythema or tenderness Respiratory : fair bilateral air entry, no crackles, wheezes or rhonchi Gastrointestinal: soft, lax, Normal bowel sounds, no tenderness with no surgical signs Skin : Warm, Dry, Neurological : Alert & oriented x3, No focal deficit DS: Data Data Completed and Pending Labs on day of discharge: Laboratory Results - last 24 hr 05/13/22 05/13/22 05/13/22 11:38 15:41 20:49 POC Glucose 249 H 192 H 189 H 05/14/22 05/14/22 07:29 10:52 POC Glucose 135 H 234 H Discharge Plan Discharge Anticipated Discharge Date/Time: 05/14/22 11:30 Patient Disposition: Home, Self-Care Discharge Diagnosis: mssa bacteremia, toxic encephlaopathy, rhabdo Referrals: Walter Aiken MD [Primary Care Provider] - 1 Week Discharge Medications: Continued naloxone [Narcan] 4 mg/actuation spray,non-aerosol 4 mg intranasal Q2M PRN (Reason: opioid overdose) Qty: 2 0RF Rx Instructions: spray 1 dose into ONE nostril; alternate nostrils w each dose until help arrives insulin glargine [Lantus U-100 Insulin] 100 unit/mL solution 30 unit subcut BEDTIME trazodone 50 mg tablet 1 tab PO BEDTIME lisinopril-hydrochlorothiazide 20-12.5 mg tablet 1 tab PO DAILY lidocaine-prilocaine 2.5-2.5 % cream 1 appl topical DAILY PRN (Reason: Pain) Rx Instructions: apply to affected area gabapentin 800 mg tablet 1 tab PO TID baclofen 10 mg tablet 1 tab PO TID pantoprazole 40 mg tablet,delayed release (DR/EC) 1 tab PO DAILY@0630 ferrous sulfate [FeroSul] 325 mg (65 mg iron) tablet 325 mg PO DAILY metformin 1,000 mg tablet 1 tab PO BID docusate sodium 100 mg capsule 1 cap PO BEDTIME PRN (Reason: constipation) omeprazole 20 mg capsule,delayed release(DR/EC) 1 cap PO DAILY@0630 fluoxetine 20 mg capsule 2 cap PO DAILY Tradjenta 5 mg tablet 1 tab PO DAILY methadone [Methadone Intensol] 10 mg/mL Concentrate 107 mg PO DAILY Discharge Orders: Discharge Order (Routine); Ordered 05/14/22 Ordered By: Carlos Lal Diet: Advance to usual diet Activity on Discharge: As tolerated Stand Alone Forms: Patient Portal Discharge page Care Plan Goals: recovery Health Concerns: opiate dependence Plan of Treatment: avoid non prescription drugs Assessment: see above
--- NOTE | 2022-05-14 11:51 | MHC.CM.PN ---
pt dcd home no skilled services orderd by
--- NOTE | 2022-05-14 11:57 | MHC.CM.PN ---
pt dcd home no skilled services ordered by
[2022-05-14] MEDS: Insulin Lispro 100 UNIT/ML 3 ML VIAL SUBCUT (12:47)
== END 2022-05-14 13:13 | disposition home or self-care (01) | DRG 917 ==
LOC: HO.ED 14:37 → HO.EDOVER 14:58 → HO.ICU 16:12 → HO.IMC 04-25 14:07
PROVIDERS: Internal Medicine; Internal Medicine Pulmonary Disease; Physician Assistant; Student in an Organized Health Care Education/Training Program; Admitting Provider Internal Medicine Cardiovascular Disease; Emergency Provider Emergency Medicine; PCP Internal Medicine; Visit Provider Internal Medicine
DX: T40.2X1A Poisoning by other opioids, accidental (unintentional), initial encounter (principal); A41.01 Sepsis due to Methicillin susceptible Staphylococcus aureus; G92.8 Other toxic encephalopathy; J96.01 Acute respiratory failure with hypoxia; S06.5XAA Traumatic subdural hemorrhage with loss of consciousness status unknown, initial encounter; J18.9 Pneumonia, unspecified organism; F11.20 Opioid dependence, uncomplicated; M62.82 Rhabdomyolysis; E87.20 Acidosis, unspecified; E87.3 Alkalosis; F19.121 Other psychoactive substance abuse with intoxication delirium; N17.9 Acute kidney failure, unspecified; F19.131 Other psychoactive substance abuse with withdrawal delirium; I12.9 Hypertensive chronic kidney disease with stage 1 through stage 4 chronic kidney disease, or unspecified chronic kidney disease; W22.8XXA Striking against or struck by other objects, initial encounter; E11.40 Type 2 diabetes mellitus with diabetic neuropathy, unspecified; N64.4 Mastodynia; N18.30 Chronic kidney disease, stage 3 unspecified; E11.65 Type 2 diabetes mellitus with hyperglycemia; E11.22 Type 2 diabetes mellitus with diabetic chronic kidney disease; Z20.822 Contact with and (suspected) exposure to COVID-19; Z78.1 Physical restraint status; Z88.0 Allergy status to penicillin; Z79.84 Long term (current) use of oral hypoglycemic drugs; Z79.899 Other long term (current) drug therapy
CPT/HCPCS: 36415; 70450; 70486; 70553; 71045; 71250; 72125; 74176; 76642; 80048; 80053; 80076; 80143; 80179; 80202; 80307; 81001; 82009; 82040; 82077; 82550; 82565; 82803; 82947; 83605; 83615; 83735; 83880; 83930; 84100; 84300; 84484; 85025; 85027; 85610; 85730; 87040; 87070; 87077; 87147; 87186; 87205; 87635; 89190; 93005; 93306; 93970; 94002; 94003; 94799; 97162; 99285; A9585; C1758; J0456; J0690; J0696; J1650; J1940; J2250; J2270; J2405; J3370; J3475; P9047; Q9957

== ENCOUNTER 2022-06-11 07:10 | Emergency (ER) | payer MEDICARE, MEDICAID, SELFPAY ==
--- NOTE | ~2022-06-11 | XR_ITS ---
EXAMINATION: XR CHEST CLINICAL INFORMATION: Diffuse rhonchi. COMPARISON: 04/26/2022 chest radiograph. TECHNIQUE: Frontal view of the chest was obtained. FINDINGS: Support devices: Interval removal right internal jugular central venous catheter. No significant abnormality is noted involving the heart, lungs, mediastinum, bony thorax or soft tissues. XR/XR chest 1V IMPRESSION: No acute cardiopulmonary process.
[2022-06-11 07:35] VITALS: BP 150/90; BP 174/70; PULSE 72; PULSE 73; RESP 14; O2SAT 89; O2SAT 96; BMI 24.7
[2022-06-11] MEDS: Ondansetron ODT 4 MG TAB.RAPDIS TRANSLINGU (07:42)
--- OUTSIDE RECORDS SUMMARY | 2022-06-11 07:49 | XMS_ITS | Continuity of Care Document ---
:1965 Author Organization [facility] Address [address] [place] [address]- Care Team Providers Name Role Phone Tanya Gay MD Primary Care Physician Encounter [facility] [place] ACCT R [id number] Date(s): 11/13/21 - 12/19/21 [facility] [address] [facility] [place] [address]- Attending Physician: Aixa Gutierrez MD Admitting Physician: Aixa Gutierrez MD Referring Physician: Not on Staff, Referring MD Allergies, Adverse Reactions, Alerts Substance Reaction Severity Status penicillin HIVES Active Medications bisacodyl 10 mg rectal suppository 1 supp = 10 mg, Rectally, Daily, PRN Constipation, 0 Refills, Maintenance, 02/24/18 11:42:14 EDT, Suppository Start Date: 02/24/18 Status: Orderedclonazepam 1 mg oral tablet 1, mg, 1, tablet, By Mouth, 3 times a day, 90, tablet, 1, 1, 05/01/06 17:25:24, Print JAYCEE Number, ADS OPPT, [address] [place] [id number], 68, Constant Indicator Start Date: 05/01/06 Stop Date: 05/31/06 Status: Orderedclonazepam 1 mg oral tablet 1, mg, 1, tablet, By Mouth, 3 times a day, 90, tablet, 2, 2, 07/01/06 11:47:38, 07/10/06 16:44:13, Print JAYCEE Number, 68, Constant Indicator Start Date: 07/10/06 Stop Date: 08/09/06 Status: Orderedclonazepam 1 mg oral tablet 1, mg, 1, tablet, By Mouth, 3 times a day, 90, tablet, 2, 5, 07/01/06 11:47:38, 05/15/06 14:54:21, Print JAYCEE Number, [address] [place] [address], 68, Constant Indicator Start Date: 05/15/06 Stop Date: 09/29/06 Status: Orderedgabapentin 300 mg oral capsule 300 mg, By Mouth, 3 times a day, Refills 0, Maintenance, 02/24/18 12:09:00 EDT Start Date: 02/24/18 Status: OrderedHeparin Inj 1 mL = 5,000 units, Subcutaneous Injection, Every 8 hours, 0 Refills, Maintenance, 02/24/18 12:28:55EDT, Injection Start Date: 02/24/18 Status: Orderedibuprofen 600 mg oral tablet 600 mg, By Mouth, 3 times a day, PRN, Refills 0, Maintenance, Pain , Mild, 02/24/18 11:42:36 EDT Start Date: 02/24/18 Status: Orderedinsulin glargine 100 u/ml subcutaneous solution = 27 units, Subcutaneous Injection, Daily at bedtime, 0 Refills, Maintenance, 02/24/18 11:42:39 EDT,Injection Start Date: 02/24/18 Status: OrderedInsulin Lispro 2-11 units, Subcutaneous Injection, 3 times a day before meals, See Order Comments for Sliding ScaleComments., 0 Refills, Maintenance, 02/24/18 11:42:41 EDT, Injection Start Date: 02/24/18 Status: OrderedLidoderm 5% film 1 patch, Topically, Daily, remove patches after 12 hours to left leg, # 30 patch, 0 Refills, Maintenance, 02/24/18 11:56:02 EDT Start Date: 02/24/18 Status: Orderedmetformin 500 mg oral tablet, extended release 500, mg, 1, tablet, By Mouth, Daily, 30, tablet, 5, 5, 05/15/06 14:55:04, Print JAYCEE Number, [address] [place] [address], [phone], Constant Indicator Start Date: 05/15/06 Stop Date: 06/14/06 Status: Orderednaloxone 4 mg/0.1 mL nasal spray = 4 mg, Nares, Both, Once, may repeat every 2 to 3 minutes until patient responds, # 2 each, 0 Refills, Soft Stop, 10/13/18 17:59:33 EDT Start Date: 10/13/18 Status: OrderedNarcan 4 mg/0.1 mL nasal spray = 4 mg, Nares, Both, Once, # 2 each, 0 Refills, Soft Stop, 04/28/19 0:03:15 EDT Start Date: 04/28/19 Status: OrderedNorvasc 5 mg oral tablet 5 mg, By Mouth, Daily, Refills 0, Maintenance, 02/24/18 11:42:11 EDT Start Date: 02/24/18 Status: OrderedPrilosec OTC 20 mg oral enteric coated tablet 20, mg, 1, tablet, By Mouth, 2 times a day, 60, 5, 0, 5, 05/01/06 17:29:28, Print JAYCEE Number, ADS OPPTHS, [address] [place] [address], [phone], Constant Indicator Start Date: 05/01/06 Status: OrderedProzac 20 mg oral capsule 20, mg, 1, capsule, By Mouth, Daily, 30, 5, 5, 03/30/06 16:44:58, Print JAYCEE Number, [address] [place] [address], [phone], Constant Indicator Start Date: 03/30/06 Status: OrderedSuboxone 8 mg-2 mg sublingual film Sublingual, Daily, 0 Refills, Maintenance, 02/14/18 11:28:08 EDT Start Date: 02/14/18 Status: OrderedtraZODone 100 mg oral tablet 100 mg, By Mouth, Daily at bedtime, Refills 0, Maintenance, 02/24/18 11:43:10 EDT Start Date: 02/24/18 Status: OrderedTriCor 145 mg oral tablet 145, mg, 1, tablet, By Mouth, Daily, 30 tablet, 5, 1, 6, 03/18/07 15:01:26, 03/16/06 16:53:00, PrintDEA Number, [address] [place] [address], [phone], Constant Indicator Start Date: 03/16/06 Stop Date: 04/17/07 Status: OrderedTums 500 mg oral tablet, chewable 500 mg, 1, tablet, Chew, Every 4 hours, PRN, Refills 0, Maintenance, Dyspepsia, 02/24/18 11:42:31 EDT Start Date: 02/24/18 Status: OrderedTylenol 325 mg oral tablet 975 mg, By Mouth, Every 6 hours, Refills 0, Maintenance, 02/24/18 11:42:08 EDT Start Date: 02/24/18 Status: OrderedZyPREXA 2.5 mg oral tablet 5 mg, By Mouth, 2 times a day, Refills 0, Maintenance, 02/24/18 11:43:01 EDT Start Date: 02/24/18 Status: Ordered Problem List Condition Effective Dates Status Health Status Informant Benzodiazepine dependence(Confirmed) Active Diabetes mellitus type 2(Confirmed) Active Gastritis(Confirmed) Active
--- OUTSIDE RECORDS SUMMARY | 2022-06-11 07:49 | XMS_ITS | Continuity of Care Document ---
:1965 Author Organization [facility] Address [address] [facility] [place] [address]- Care Team Providers Name Role Phone Tanya Gay MD Primary Care Physician Encounter [facility] [place] ACCT R [id number] Date(s): 11/19/21 - 12/19/[address] [facility] [address] [facility] [place] [address]- Attending Physician: Rosa Maria Tran Admitting Physician: AdmRosa Maria kearney Referring Physician: AdmtrRosa Maria Allergies, Adverse Reactions, Alerts Substance Reaction Severity Status penicillin HIVES Active Medications bisacodyl 10 mg rectal suppository 1 supp = 10 mg, Rectally, Daily, PRN Constipation, 0 Refills, Maintenance, 02/24/18 11:42:14 EDT, Suppository Start Date: 02/24/18 Status: Orderedclonazepam 1 mg oral tablet 1, mg, 1, tablet, By Mouth, 3 times a day, 90, tablet, 1, 1, 05/01/06 17:25:24, Print JAYCEE Number, ADS OPPT, [address] [place] [id number], 68, Constant Indicator Start Date: 05/01/06 Stop [...] day, 90, tablet, 2, 5, 07/01/06 11:47:38, 11/10/06 14:54:21, Print JAYCEE Number, [address] [place] [address], 68, Constant Indicator Start Date: 05/15/06 Stop [...] 5, 05/15/06 14:55:04, Print JAYCEE Number, [address] [place] [address], [phone], Constant Indicator Start Date: 05/15/06 Stop Date: [...] 05/01/06 17:29:28, Print JAYCEE Number, ADS OPPTHS, [address] [place] [address], [phone], Constant Indicator Start Date: 05/01/06 Status: OrderedProzac 20 mg oral capsule 20, mg, 1, capsule, By Mouth, Daily, 30, 5, 5, 03/30/06 16:44:58, Print JAYCEE Number, [address] [place] [address], [phone], Constant Indicator Start Date: 03/30/06 Status: OrderedSuboxone [...] 03/18/07 15:01:26, 03/16/06 16:53:00, PrintDEA Number, [address] [place] [address], [phone], Constant Indicator Start Date: 03/16/06 Stop Date: [...]
--- OUTSIDE RECORDS SUMMARY | 2022-06-11 07:49 | XMS_ITS | Continuity of Care Document ---
:1965 Author Organization [facility] Address [address] [place] [address]- Care Team Providers Name Role Phone Tanya Gay MD Primary Care Physician [place] [facility] [place] 10[place]04[place]21 [place] 11[place]14/21 [facility] [address] [facility] [place] [address]- Attending Physician: Aixa Gutierrez MD Admitting Physician: [...] 05/01/06 17:25:24, Print JAYCEE Number, ADS OPPT, [address] [place] [address], 68, Constant Indicator Start Date: 05/01/06 Stop [...] 11:47:38, 05/15/06 14:54:21, Print JAYCEE Number, [address] [place] [address], 68, Constant Indicator Start Date: 05/15/06 Stop [...] 5, 05/15/06 14:55:04, Print JAYCEE Number, [address] [place] [address], [phone], Constant Indicator Start Date: 05/15/06 Stop Date: [...] 05/01/06 17:29:28, Print JAYCEE Number, ADS OPPTHS, [address] [place] [address], [phone], Constant Indicator Start Date: 05/01/06 Status: OrderedProzac 20 mg oral capsule 20, mg, 1, capsule, By Mouth, Daily, 30, 5, 5, 03/30/06 16:44:58, Print JAYCEE Number, [address] [place] [address], [phone], Constant Indicator Start Date: 03/30/06 Status: OrderedSuboxone [...] 03/18/07 15:01:26, 03/16/06 16:53:00, PrintDEA Number, [address] [place] [address], [phone], Constant Indicator Start Date: 03/16/06 Stop Date: [...]
--- OUTSIDE RECORDS SUMMARY | 2022-06-11 07:49 | XMS_ITS | Continuity of Care Document ---
:1965 Author Organization [facility] Address [address] [place] [address]- Care Team Providers Name Role Phone Tanya Gay MD Primary Care Physician Encounter [facility] [place] Date(s): 11/06/21 - 12/13/21 [facility] [address] [facility] [place] [address]- Attending Physician: Aixa Gutierrez MD Admitting Physician: [...] 05/01/06 17:25:24, Print JAYCEE Number, ADS OPPT, [address] [place] [id number], 68, Constant Indicator Start Date: 05/01/06 Stop [...] 11:47:38, 11/10/06 14:54:21, Print JAYCEE Number, [address] [place] [address], 68, Constant Indicator Start Date: 05/15/06 Stop [...] 5, 05/15/06 14:55:04, Print JAYCEE Number, [address] [place] [address], [phone], Constant Indicator Start Date: 05/15/06 Stop Date: [...] 05/01/06 17:29:28, Print JAYCEE Number, ADS OPPTHS, [address] [place] [address], [phone], Constant Indicator Start Date: 05/01/06 Status: OrderedProzac 20 mg oral capsule 20, mg, 1, capsule, By Mouth, Daily, 30, 5, 5, 03/30/06 16:44:58, Print JAYCEE Number, [address] [place] [address], [phone], Constant Indicator Start Date: 03/30/06 Status: OrderedSuboxone [...] 03/18/07 15:01:26, 03/16/06 16:53:00, PrintDEA Number, [address] [place] [address], [phone], Constant Indicator Start Date: 03/16/06 Stop Date: [...]
--- OUTSIDE RECORDS SUMMARY | 2022-06-11 07:49 | XMS_ITS ---
:1965 Author Care Team Providers Name Role Phone [facility] OTHER [phone] Allergies Code Code System Name Reaction Severity Status Onset NKDA ? Medications Notes: Med list reviewed, may not be u p to date, see MAR for complete list Problems Name Status Onset Date Source ? Sepsis Active 02/25/2018 ? Diabetes Mellitus Active 02/25/2018 ? Polysubstance Abuse Active 02/25/2018 ? Toxic Encephalopathy Active 02/25/2018 ? Paraseptal Emphysema Active 02/25/2018 ? Closed Fracture of Scapula Active 02/25/2018 ? Acute Injury of Kidney Active 02/25/2018 ? Closed Fracture of Left Ankle Active 02/25/2018 ? Gastroesophageal Reflux Disease without Esophagitis Active 03/01/2018 ? Essential Hypertension Active 03/02/2018 ? Procedures None recorded. Results Lab Results None recorded. Past Encounters None recorded. Social History Tobacco Smoking Status Current Every Day Smoker Vaccine List None recorded. Plan of Care Reminders Provider Appointments None recorded. ? ? Lab None recorded. ? ? Referral None recorded. ? ? Procedures None recorded. ? ? Surgeries None recorded. ? ? Imaging None recorded. ? ? Vitals 05/25/2018 04:06PM Discharge Summary Blood Pressure 134/74 mm[Hg] 05/21/2018 10:05AM Acute Rounding Visit Blood Pressure 125/86 mm[Hg] 05/12/2018 12:04PM Acute Rounding Visit Blood Pressure 144/78 mm[Hg] 04/30/2018 01:59PM Acute Rounding Visit Blood Pressure 138/75 mm[Hg] 04/22/2018 11:30AM Acute Rounding Visit Blood Pressure 136/75 mm[Hg] 04/14/2018 10:35AM Acute Rounding Visit Blood Pressure 120/69 mm[Hg] 03/30/2018 11:59AM Routine Rounding Visit Blood Pressure 123/77 mm[Hg] 03/22/2018 03:10PM Acute Rounding Visit Blood Pressure 123/77 mm[Hg] 03/18/2018 01:40PM Acute Rounding Visit Blood Pressure 138/75 mm[Hg] 03/11/2018 01:37PM Acute Rounding Visit Blood Pressure 121/73 mm[Hg] 03/02/2018 11:03AM Admitting H&P Blood Pressure 128/76 mm[Hg] 03/01/2018 01:15PM Acute Rounding Visit Blood Pressure 132/72 mm[Hg] 02/25/2018 01:22PM Initial Intake Note Blood Pressure 118/70 mm[Hg]
[2022-06-11 08:05] VITALS: BP 132/53; PULSE 65; RESP 14; O2SAT 91
--- NOTE | 2022-06-11 08:06 | PC.NURSE ---
pt extremely drowsy only responds to painful stimuli, pt vomiting upon arrival was given zofran sublingual, sating at 89% on room air, lung sounds coarse on the right side breathing anywhere from 10-14 per min ns on the monitor
--- NOTE | 2022-06-11 08:22 | ED.OVERDOSE ---
HPI - Overdose General Chief Complaint: Overdose Stated Complaint: Pos drug use, vomit per EMS Time Seen by Provider: 06/11/22 07:53 Source: patient and RN notes reviewed Mode of arrival: EMS Limitations: altered mental status History of Present Illness HPI Narrative: 56-year-old female who presents emergency department by ambulance for evaluation of altered mental status, vomiting. The patient did admit to the paramedics that she snorted cocaine and heroin last night. At the time my evaluation the patient is somnolent but awake. She does answer questions. She has no complaints. The patient's O2 saturation on room air was 89% on 2 L via nasal cannula it was 91%. The patient's lung exam did reveal diffuse rhonchi. She denied chest pain, shortness of breath, nausea, abdominal pain, frequency, urgency or dysuria. Related Data Home Medications Medication Instructions Recorded Confirmed baclofen 10 mg tablet 1 tab PO TID 04/19/22 04/19/22 docusate sodium 100 mg capsule 1 cap PO BEDTIME PRN constipation 04/19/22 04/19/22 ferrous sulfate 325 mg (65 mg 325 mg PO DAILY 04/19/22 04/19/22 iron) tablet (FeroSul) fluoxetine 20 mg capsule 2 cap PO DAILY 04/19/22 04/19/22 gabapentin 800 mg tablet 1 tab PO TID 04/19/22 04/19/22 insulin glargine 100 unit/mL 30 unit subcut BEDTIME 04/19/22 04/19/22 subcutaneous solution (Lantus U-100 Insulin) lidocaine-prilocaine 2.5 %-2.5 % 1 appl topical DAILY PRN Pain 04/19/22 04/19/22 topical cream linagliptin 5 mg tablet (Tradjenta) 1 tab PO DAILY 04/19/22 04/19/22 lisinopril 20 1 tab PO DAILY 04/19/22 04/19/22 mg-hydrochlorothiazide 12.5 mg tablet metformin 1,000 mg tablet 1 tab PO BID 04/19/22 04/19/22 omeprazole 20 mg capsule,delayed 1 cap PO DAILY@0630 04/19/22 04/19/22 release pantoprazole 40 mg tablet,delayed 1 tab PO DAILY@0630 04/19/22 04/19/22 release trazodone 50 mg tablet 1 tab PO BEDTIME 04/19/22 04/19/22 methadone 10 mg/mL oral 107 mg PO DAILY 04/21/22 04/21/22 concentrate (Methadone Intensol) Previous Rx's Medication Instructions Recorded naloxone 4 mg/actuation nasal 4 mg intranasal Q2M PRN opioid 11/24/20 spray (Narcan) overdose #2 ea Allergies Allergy/AdvReac Type Severity Reaction Status Date / Time Penicillins Allergy Mild HIVES Verified 12/03/20 11:11 Review of Systems Review of Systems: Yes all other systems are reviewed and are negative [facility]LY [facility] Past Medical History FOR[facility], [facility]1983 Narrative: Social history: The patient does smoke cigarettes, she states she occasionally drinks alcohol, she does admit to using heroin and cocaine intranasally Medical History Diabetes HTN (hypertension) Opiate use Social History Social History Household Members: Unknown / Unable to assess Housing: Unknown / Unable to assess Unable to assess alcohol history related to: Unable to respond and Unknown Alcohol intake: never Patient Tobacco Use Status: Tobacco use Unknown Substance Use Type: Heroin Advance Directives: No Advance Directives Information Provided: No service: No Current occupational status: disabled Physical Exam Vital Signs: Vital Signs: Last Vital Signs Pulse 92 06/11/22 10:55 Resp 24 H 06/11/22 10:55 BP 201/90 H 06/11/22 10:55 Pulse Ox 98 06/11/22 10:55 O2 Del Method 06/11/22 10:55 O2 Flow Rate 2 06/11/22 10:55 BMI result Body Mass Index 24.7 Const: Other: Somnolent but arousable female patient, she does answer questions appropriately but falls back asleep. Patient was hypoxic on presentation with improvement of her O2 saturation with oxygen via nasal cannula HEENT: Head: Yes normal to inspection, Yes normocephalic and Yes atraumatic Ears: external ears normal General nose exam: Normal external nose present Face and sinus: Yes normal facial exam Mouth: Normal oral and palatal mucosa present Throat: Yes posterior oropharynx normal Eyes: General: appearance normal, both eyes and all related structures Neck: Neck: Yes normal visual inspection, Yes no lymphadenopathy, Yes trachea midline and Yes supple Chest: Chest palpation & inspection: normal inspection of the chest and normal palpation of entire chest wall Resp: Other: Patient's breath sounds are diminished bilaterally, she has diffuse rhonchi, there is no wheezing or rales Cardio: Rate: regular rate Rhythm: regular rhythm Heart sounds: S1 normal heart sound present, S2 normal heart sound present and no murmurs GI: Inspection: Yes normal to inspection Palpation (GI): Soft to palpation, nontender and no guarding Auscultation: normal bowel sounds : General: Yes no CVA tenderness Back/Spine/Pelvis: Back: no CVA tenderness Skin: General skin exam: no rashes or lesions noted Neuro: Other: Patient is somnolent but arousable, she does answer questions, she is oriented to person, she moves all extremities symmetrically Extrem: General: Yes normal to inspection Course Course Course Narrative: 56-year-old female who was sent to the emergency department by ambulance for evaluation of being drowsy and vomiting. The patient did admit to snorting cocaine and heroin last night. Patient's vital signs revealed an elevated blood pressure of 174/76, O2 saturation on room air was low at 89% on 2 L air was 91%. The patient's lung exam revealed diminished breath sounds at the bases with diffuse rhonchi. Her exam was otherwise unremarkable. Did order laboratory evaluation includes CBC, CMP, lactate, BNP, EKG, troponin, one-view chest x-ray, 12 EKG, one-view chest x-ray. I did order Zofran 4 mg ODT 1114: Laboratory evaluation: WBC elevated 11,000, low H&H 10.6 and 32.8-chronic. BUN elevated 23. Glucose elevated 255. CK elevated 141. Urinalysis positive for protein. Microscopic unremarkable. Urine tox screen positive for fentanyl and cocaine. COVID-19 and influenza negative. Radiology evaluation: Chest x-ray interpreted by the radiologist as no acute cardiopulmonary process. Initially was concerned that the patient may have an aspiration pneumonia and I did order antibiotics however the patient lost her line. The patient became more somnolent was given Narcan 2 mg IV which caused her to wake up and her respiratory status improved. The patient's laboratory evaluation was relatively unremarkable and her chest x-ray reveals no infiltrates this time. The patient is much more awake and alert and her respiratory status improved. I did offer crisis counseling and assistant men's lacrosse coach evaluation to help her with her polysubstance use disorder however she declined and wants to go home. Patient will be discharged home with intranasal Narcan. Medications Administered Discontinued Medications Generic Name Dose Route Start Last Admin Trade Name Bel PRN Reason Stop Dose Admin Sodium Chloride 1,000 mls @ 999 mls/hr 06/11/22 08:22 06/11/22 09:09 Ns IV 06/11/22 09:22 999 mls/hr .Q1H1M STA Administration Levofloxacin 750 mg in 150 mls @ 100 mls/hr 06/11/22 09:31 06/11/22 09:53 Levaquin IV 06/11/22 11:00 100 mls/hr ONCE STA Administration Naloxone HCl 2 mg 06/11/22 09:01 06/11/22 09:07 Naloxone Hcl 2 Mg/2 Ml Syringe IVPUSH 06/11/22 09:02 2 mg ONCE ONE Administration Ondansetron HCl 4 mg 06/11/22 07:40 06/11/22 07:42 Ondansetron Odt 4 Mg Tab.Rapdis TRANSLINGU 06/11/22 07:41 4 mg ONCE ONE Administration Medical Decision Making Medical Decision Making Differential Diagnoses: Differential diagnosis (Opiate overdose, aspiration pneumonia, congestive heart failure) Differential Diagnosis: The differential diagnosis associated with the patient?s presentation includes: Consideration of admission/observation: Consideration of Admission/Observation (Yet) Escalation of care admission/observation considered: Escalation of care including admission/observation considered Lab Attestation: I reviewed the patient's lab results. Tests considered but not performed: Tests Considered But Not Performed (CT angiogram PE broke) The following testing was considered but ultimately not selected after discussion with patient/family. Critical Care Time Critical Care Time Total Critical Care Time: 30 Attestation: Critical Care: The patient was critically ill with a high probability of imminent or life threatening deterioration. I spent greater than 30 minutes of discontinuous time evaluating the patient,delivering critical care at the bedside, discussing and evaluating pertinent data with consultants. Critical care time does not include time spent performing separately billable procedures or teaching. Total time spent performing critical care was 30 minutes. Discharge Plan Discharge Clinical Impression: Cocaine use, Acute dyspnea Opiate overdose Qualifiers: Encounter type: initial encounter Injury intent: accidental or unintentional Qualified Code(s): T40.601A - Poisoning by unspecified narcotics, accidental (unintentional), initial encounter Patient Disposition: Home, Self-Care Instructions: Opioid Use Disorder (ED) Additional Instructions: You accidentally overdosed on fentanyl and cocaine. I strongly suggest that you get into a detox program to help you with your polysubstance use disorder. I did offer to have you evaluated by our care team and assistant men's lacrosse coach but you declined. If you change your mind, return to the emergency department and we can get you help. Your are being discharged home with intranasal Narcan. If you are going to continue to use heroin, you should make sure that there is a sober person with you that is not using drugs and that this person can administer intranasal Narcan in the event that you stop breathing. Follow-up with your doctor in 2 days. Please return to the emergency department if your symptoms get worse or if you develop any symptoms that are concerning to you. Prescriptions: No Action naloxone [Narcan] 4 mg/actuation spray,non-aerosol 4 mg intranasal Q2M PRN (Reason: opioid overdose) Qty: 2 0RF Rx Instructions: spray 1 dose into ONE nostril; alternate nostrils w each dose until help arrives insulin glargine [Lantus U-100 Insulin] 100 unit/mL solution 30 unit subcut BEDTIME trazodone 50 mg tablet 1 tab PO BEDTIME lisinopril-hydrochlorothiazide 20-12.5 mg tablet 1 tab PO DAILY lidocaine-prilocaine 2.5-2.5 % cream 1 appl topical DAILY PRN (Reason: Pain) Rx Instructions: apply to affected area gabapentin 800 mg tablet 1 tab PO TID baclofen 10 mg tablet 1 tab PO TID pantoprazole 40 mg tablet,delayed release (DR/EC) 1 tab PO DAILY@0630 ferrous sulfate [FeroSul] 325 mg (65 mg iron) tablet 325 mg PO DAILY metformin 1,000 mg tablet 1 tab PO BID docusate sodium 100 mg capsule 1 cap PO BEDTIME PRN (Reason: constipation) omeprazole 20 mg capsule,delayed release(DR/EC) 1 cap PO DAILY@0630 fluoxetine 20 mg capsule 2 cap PO DAILY Tradjenta 5 mg tablet 1 tab PO DAILY methadone [Methadone Intensol] 10 mg/mL Concentrate 107 mg PO DAILY
[2022-06-11 09:04] LABS: MANUAL DIFF FLAG NO
[2022-06-11 09:06] LABS: Basophils Absolute Auto 0.1 X10*3/uL (0.0-0.2); Basophils Percent Auto 0.5 % (0-2); Eosinophils Absolute Auto 0.2 X10*3/uL (0.0-0.4); Eosinophils Percent Auto 1.5 % (0-4); Hematocrit 32.8 % (37.0-47.0); Hemoglobin 10.6 g/dl (12.0-16.0); Imm Gran Abs Auto 0.06 X10*3/uL (0.00-0.03); Imm Gran Pct Auto 0.5 % (0.0-0.4); Lymphocytes Absolute Auto 1.4 X10*3/uL (1.2-4.9); Lymphocytes Percent Auto 12.7 % (20-40); Mean Corpuscular HGB Conc 32.3 g/dl (31.0-35.0); Mean Corpuscular Hemoglobin 28.9 pg (27.0-33.0); Mean Corpuscular Volume 89.4 fL (80.0-98.0); Mean Platelet Volume 10.7 fL (9.4-12.3); Monocytes Absolute Auto 0.6 X10*3/uL (0.1-1.2); Monocytes Percent Auto 5.8 % (2-11); Neutrophils Absolute Auto 8.7 x10*3/uL (2.0-8.3); Platelet Count 264 X10*3/uL (160-400); Red Blood Count 3.67 X10*6/uL (4.20-5.50); Red Cell Distribution Width 15.2 % (11.0-16.0)
[2022-06-11] MEDS: Naloxone HCl 2 MG/2 ML SYRINGE IVPUSH (09:07)
[2022-06-11] MEDS: 0.9 % Sodium Chloride 1,000 ML 999 ML IV (09:09)
[2022-06-11 09:10] VITALS: BP 100/52; PULSE 55; RESP 8; O2SAT 90
[2022-06-11 09:11] VITALS: BP 186/120; PULSE 99; RESP 16; O2SAT 100
--- NOTE | 2022-06-11 09:14 | PC.NURSE ---
pt given narcan iv, pt was becoming more sleepier, respirations varied from 8-14 and sating at 90-92% on 2l and hr becoming hank as well 55, bp 100/52, pt did not even flinch during an iv insertion
[2022-06-11 09:16] LABS: Lactic Acid 1.9 mmol/L (0.5-2.0)
[2022-06-11 09:27] LABS: Alanine Aminotransferase 14 U/L (0-31); Albumin Level 3.6 g/dL (3.5-5.0); Alkaline Phosphatase 105 U/L (39-117); Anion Gap 17 (12-20); Aspartate Amino Transferase 25 U/L (5-31); B Type Natriuretic Peptide 34 pg/mL (<100); Bilirubin Total 0.2 mg/dL (0.0-1.0); Blood Urea Nitrogen 23 mg/dL (9-16); Calcium 9.1 mg/dL (8.4-10.2); Carbon Dioxide 25 mmol/L (22-29); Chloride 101 mmol/L (96-108); Creatinine Clr Calc Pharmacy 40.6; Estimated Glomerular Filt Rate 41; Glucose Random 255 mg/dL (60-115); Lipase 14 U/L (8-78); Potassium 4.5 mmol/L (3.3-5.1); Sodium 138 mmol/L (135-145); Total Protein 7.6 g/dL (6.5-8.0)
[2022-06-11 09:47] LABS: COVID-19 Test Negative (Negative); IDNOW Serial# 16C4AD1C
[2022-06-11 09:48] LABS: IDNOW Serial# BCCEAD1C; Influenza A Negative (Negative); Influenza B2 Negative (Negative)
[2022-06-11] MEDS: levoFLOXacin/D5W 750 MG/150 ML PIGGYBACK 100 MG IV (09:53)
[2022-06-11 10:00] LABS: Appearance Urine Clear; Color Urine Yellow; Glucose Urine UA 100 mg/dL (Negative); Leukocyte Esterase Urine Negative (Negative); Nitrite Urine Negative (Negative); PH 7.5 (5.0-9.0); UMIC TRIGGER UACC YES; Urine Blood Negative (Negative); Urine Ketones Negative (Negative); Urine Protein 300 (3+) mg/dL (Neg-Trace)
[2022-06-11 10:05] LABS: Bacteria Urine None Seen (None Seen); Hyaline Casts Urine 0-2 /LPF (0-2); RBC Urine 0-2 /HPF (0-2); Squamous Epithelial Cell Urine 0-2 /HPF (0-2); WBC Urine 0-5 /HPF (0-5)
[2022-06-11 10:11] LABS: Amphetamine Screen Urine Not Detected (Not Detect); Barbiturates, Urine Not Detected (Not Detect); Benzodiazepines Screen Urine Not Detected (Not Detect); Cannabinoid Screen Urine Not Detected (Not Detect); Cocaine Screen Urine POSITIVE (Not Detect); Fentanyl, urine POSITIVE (Not Detect); Opiate Screen Urine Not Detected (Not Detect); Phencyclidine Screen Urine Not Detected (Not Detect)
[2022-06-11 10:25] VITALS: BP 192/84; PULSE 106; RESP 16; O2SAT 100
--- NOTE | 2022-06-11 10:27 | PC.NURSE ---
pt pulled her iv out, pt became very restless at this time moving around but not answering and questions, pupils dilated at this time about 4-5mm
[2022-06-11 10:55] VITALS: BP 201/90; PULSE 92; RESP 24; O2SAT 98
[2022-06-11 11:09] LABS: Troponin-I High Sensitivity < 3.5 ng/L (<3.5-17.0)
--- NOTE | 2022-06-11 11:47 | HO.SUDE ---
Pt declined SUDE.
[2022-06-11] MEDS: Naloxone HCl Nasal TAKE HOME 4 MG SPRAY NOSTRILALT (12:11)
--- NOTE | 2022-06-11 12:11 | PC.NURSE ---
pt discharged w sober ride from family and take home narcan.
== END 2022-06-11 12:12 | disposition home or self-care (01) ==
PROVIDERS: Emergency Provider Emergency Medicine Emergency Medical Services; PCP Internal Medicine
DX: T40.1X1A Poisoning by heroin, accidental (unintentional), initial encounter (principal); R06.02 Shortness of breath; T40.5X1A Poisoning by cocaine, accidental (unintentional), initial encounter; Y92.9 Unspecified place or not applicable; Z79.899 Other long term (current) drug therapy; Z20.822 Contact with and (suspected) exposure to COVID-19
CPT/HCPCS: 71045; 80053; 80307; 81001; 82550; 83605; 83690; 83880; 84484; 85025; 87040; 87502; 87635; 96361; 96374; 96375; 99284; J1956

== ENCOUNTER 2023-02-16 07:10 | Emergency (ER) | payer MEDICARE, MEDICAID, SELFPAY ==
--- NOTE | ~2023-02-16 | XR_ITS ---
EXAMINATION: XR CHEST CLINICAL INFORMATION: Left-sided chest pain. COMPARISON: 06/11/2022 chest radiograph. TECHNIQUE: Frontal view of the chest was obtained. FINDINGS: Curvilinear markings are seen laterally in the left midlung. The lungs otherwise clear. The heart and mediastinal structures are unremarkable. XR/XR chest 1V IMPRESSION: Curvilinear markings laterally in the left midlung do not appear acute, but were not seen previously and could represent atelectasis/scarring secondary to unknown source. No definitive acute abnormality. If patient's left sided pain persists, a dedicated left rib series is recommended.
--- NOTE | ~2023-02-16 | XR_ITS ---
EXAMINATION: XR FOOT, LEFT CLINICAL INFORMATION: Left foot pain status post fall. COMPARISON: None available. TECHNIQUE: AP, lateral, and oblique views of the left foot. An indicator arrow points to the fifth metatarsal. FINDINGS: Mild first metatarsophalangeal and interphalangeal degenerative joint changes are seen. There is no acute fracture or dislocation. The tarsal bones are normally aligned. Very small plantar and retrocalcaneal spurs are seen. The soft tissues are unremarkable. XR/XR foot LT 2V IMPRESSION: 1. Mild first metatarsophalangeal and interphalangeal degenerative joint changes suggesting osteoarthritis. No acute fracture. Specifically, the fifth digit appears intact. 2. Very small degenerative calcaneal spurs.
--- NOTE | ~2023-02-16 | XR_ITS ---
EXAMINATION: XR FOOT, RIGHT CLINICAL INFORMATION: Right foot pain status post fall. COMPARISON: None available. TECHNIQUE: AP, lateral, and oblique views of the right foot. An indicator arrow points to the fifth metatarsal. FINDINGS: There is acute, nondisplaced fracture at the proximal fifth metatarsal. Mild first metatarsophalangeal and interphalangeal degenerative joint changes are seen. The tarsal bones are normally aligned. Small plantar calcaneal spur. A 6 mm linear radiopaque density overlies the superficial plantar soft tissues superficial to the tarsometatarsal joints and the lateral projection. Mild soft tissue swelling. XR/XR foot RT 2V IMPRESSION: 1. Acute, nondisplaced fracture at the proximal fifth metatarsal. 2. Mild degenerative joint changes suggesting osteoarthritis. 3. 6 mm linear radiopaque density overlying the superficial plantar soft tissues superficial to the tarsometatarsal joints is of indeterminate age, but could represent a foreign body. Mild soft tissue swelling. Correlate with physical exam. 4. Small degenerative plantar calcaneal spur.
[2023-02-16 07:27] VITALS: BP 180/80; PULSE 100; RESP 18; TEMP 36.8; O2SAT 98; BMI 28.7
--- NOTE | 2023-02-16 10:18 | ECG_ITS ---
Test Reason : L BREAST PAIN Blood Pressure : / mmHG Vent. Rate : 080 BPM Atrial Rate : 080 BPM P-R Int : 134 ms QRS Dur : 070 ms QT Int : 380 ms P-R-T Axes : 058 064 072 degrees QTc Int : 438 ms Normal sinus rhythm Normal ECG When compared with ECG of 19-APR-2022 15:03, QT has shortened Referred By: Denton Castaneda Electronically Signed By:HUSSAIN FERNANDEZ MD
--- NOTE | 2023-02-16 10:23 | ED.GENADULT ---
HPI - General Adult General Chief complaint: Extremity Problem Stated complaint: r and l foot pain Time Seen by Provider: 02/16/23 09:39 Source: patient Mode of arrival: ambulatory Limitations: no limitations History of Present Illness HPI narrative: 57-year-old female with past medical history of toxic metabolic encephalopathy, rhabdomyolysis, opiate use disorder presents to the ED for bilateral foot pain after falling 5 days ago. Patient states she fell in her room. Patient states she tripped 5 days ago and fell onto her right foot. Patient states she has left foot pain that she has been over compensating on her left foot. Patient denies hitting head, loss of consciousness, nausea, or vomiting. Patient's secondary complaint is left breast pain for 2 months. Patient denies any breast nipple discharge, swelling, redness, or left axillary pain. Related Data Home Medications Medication Instructions Recorded Confirmed baclofen 10 mg tablet 1 tab PO TID 04/19/22 04/19/22 docusate sodium 100 mg capsule 1 cap PO BEDTIME PRN constipation 04/19/22 04/19/22 ferrous sulfate 325 mg (65 mg 325 mg PO DAILY 04/19/22 04/19/22 iron) tablet (FeroSul) fluoxetine 20 mg capsule 2 cap PO DAILY 04/19/22 04/19/22 gabapentin 800 mg tablet 1 tab PO TID 04/19/22 04/19/22 insulin glargine 100 unit/mL 30 unit subcut BEDTIME 04/19/22 04/19/22 subcutaneous solution (Lantus U-100 Insulin) lidocaine-prilocaine 2.5 %-2.5 % 1 appl topical DAILY PRN Pain 04/19/22 04/19/22 topical cream linagliptin 5 mg tablet (Tradjenta) 1 tab PO DAILY 04/19/22 04/19/22 lisinopril 20 1 tab PO DAILY 04/19/22 04/19/22 mg-hydrochlorothiazide 12.5 mg tablet metformin 1,000 mg tablet 1 tab PO BID 04/19/22 04/19/22 omeprazole 20 mg capsule,delayed 1 cap PO DAILY@0630 04/19/22 04/19/22 release pantoprazole 40 mg tablet,delayed 1 tab PO DAILY@0630 04/19/22 04/19/22 release trazodone 50 mg tablet 1 tab PO BEDTIME 04/19/22 04/19/22 methadone 10 mg/mL oral 107 mg PO DAILY 04/21/22 04/21/22 concentrate (Methadone Intensol) Previous Rx's Medication Instructions Recorded naloxone 4 mg/actuation nasal 4 mg intranasal Q2M PRN opioid 11/24/20 spray (Narcan) overdose #2 ea naproxen 500 mg tablet 500 mg PO BID PRN pain 7 days #14 02/16/23 tabs Allergies Allergy/AdvReac Type Severity Reaction Status Date / Time Penicillins Allergy Mild HIVES Verified 12/03/20 11:11 Review of Systems Review of Systems: bilateral foot pain. left breast pain for months Yes all other systems are reviewed and are negative [facility] Past Medical History Medical History Diabetes HTN (hypertension) Opiate use Social History Social History Household Members: Unknown / Unable to assess Housing: Unknown / Unable to assess Unable to assess alcohol history related to: Unable to respond and Unknown Alcohol intake: never Patient Tobacco Use Status: Tobacco use Unknown Substance Use Type: Heroin service: No Current occupational status: disabled Physical Exam ED Vital Signs: Vital Signs - 24 hr 02/16/23 07:27 02/16/23 11:09 Temperature 98.3 F Pulse Rate 100 74 Respiratory Rate 18 18 Blood Pressure 180/80 H 145/64 H Pulse Oximetry 98 95 Oxygen Delivery Method Room Air Room Air BMI result Body Mass Index 28.7 Const General: cooperative, healthy appearing, comfortable, no acute distress, well developed and alert Orientation/consciousness: oriented to person, oriented to place, oriented to time and patient oriented x3 HENMT Head: Yes normal to inspection, Yes No palpable skull fracture present, Yes normocephalic, Yes atraumatic and No abrasion Ears: hearing grossly normal bilaterally, external ears normal, TM's normal bilaterally, TM normal on the right, TM normal on the left, EAC's normal, mastoids normal and no periauricular adenopathy Eyes General: appearance normal, both eyes and all related structures Neck Neck: Yes normal visual inspection, Yes full ROM, Yes no lymphadenopathy, Yes no meningeal signs, Yes trachea midline, Yes supple, No anterior neck swelling and No tender Chest Chest palpation & inspection: normal inspection of the chest and normal palpation of entire chest wall Breast/axilla palpation: normal palpation of the axillae and no axillary lymphadenopathy Chest/axillae images: 1. Tenderness on palpation. Negative for crepitus, ecchymosis, erythema, rash, pus discharge, or mass on palpation Resp Effort & Inspection: normal respiratory effort and able to speak in complete sentences Auscultation: clear to auscultation bilaterally Cardio Jugular venous distension: no JVD Heart sounds: S1 normal heart sound present and S2 normal heart sound present GI Inspection: Yes normal to inspection and No abdominal wall ecchymosis Palpation (GI): Soft to palpation, not firm, nontender, no guarding and not rigid General: No CVA tenderness and Yes no CVA tenderness Back/Spine/Pelvis Back: no CVA tenderness, No CVA tenderness and No back tenderness Skin General skin exam: no rashes or lesions noted, elasticity normal and turgor normal Neuro General: oriented to person, oriented to place, oriented to time, patient oriented x3, gait normal, tone normal, moves all extremities, Normal light touch and pain sensation, no meningeal signs, no focal motor deficits, CN's II-XI intact bilaterally and normal sensation to monofilament Extrem General: Yes normal to inspection and Yes full ROM Ankle/foot/toe images: 1. positive for tenderness on palpation. Negative for crepitus, ecchymosis, deformity, hardness, coldness, open wound, foul odor, pus discharge. Vascular/ motor/neuro exam intact 2. positive for tenderness on palpation. Negative for crepitus, ecchymosis, deformity, hardness, coldness, open wound, foul odor, pus discharge. Vascular/ motor/neuro exam intact Psych Appearance: grossly normal, well kempt and not disheveled Medications Administered Discontinued Medications Generic Name Dose Route Start Last Admin Trade Name Freq PRN Reason Stop Dose Admin Sodium Chloride 1,000 mls @ 999 mls/hr 02/16/23 11:55 02/16/23 14:36 Ns IV 02/16/23 12:55 Infused .Q1H1M STA Infusion Sodium Chloride 1,000 mls @ 999 mls/hr 02/16/23 11:56 02/16/23 14:36 Ns IV 02/16/23 12:56 Infused .Q1H1M STA Infusion Sodium Chloride 1,000 mls @ 999 mls/hr 02/16/23 17:26 02/16/23 19:38 Ns IV 02/16/23 18:26 Infused .Q1H1M STA Infusion Ibuprofen 800 mg 02/16/23 10:26 02/16/23 11:04 Ibuprofen 800 Mg Tablet PO 02/16/23 10:27 Not Given ONCE ONE Prednisone 60 mg 02/16/23 10:26 02/16/23 11:04 Prednisone 20 Mg Tablet PO 02/16/23 10:27 60 mg ONCE ONE Administration Sodium Polystyrene Sulfonate 30 gm 02/16/23 19:23 02/16/23 19:36 Sodium Polystyrene Sulfon/Sorb 15 Gm/60 Ml Oral.Susp PO 02/16/23 19:24 30 gm ONCE ONE Administration Medical Decision Making Medical Decision Making [facility] Narrative: 57-year-old female presents to ED for bilateral foot pain after fall 5 days ago. Patient denies any trauma to the head the rest of body. Patient has secondary complaint left breast pain for over a month. Physical exam negative for signs of infection or breast cancer but due to age and left-sided breast chest wall tenderness cardiac evaluation will be done. Bilateral feet x-rays ordered 12:00pm- Right foot fracture. Patient is a PAPO will order fluids. Patient placed in posterior splint 7:15pm: after 2 L patient's kidney function improving but still in PAPO. case discussed with Dr. France, hospitalist, recommends 3 L and repeat chemistry. Sign-out to TAINA Shaikh 7:22: As per chemical laboratory assistant. BUN 35 and Creatine 1.39 Differential Diagnosis Differential Diagnoses: The differential diagnosis associated with the presentation includes ( Foot fracture, foot dislocation, myocardial infarction, pneumonia, costochondritis, , breast abscess, breast CA) Admission/Observation Consideration of admission/observation: Escalation of care including admission/observation considered Lab Data [facility] Lab Attestation statement: I reviewed the patient's lab results. 02/16/23 10:34 02/16/23 10:34 Labs: Lab Results 02/16/23 02/16/23 02/16/23 Range/Units 10:34 10:34 10:34 WBC 10.0 (4.8-10.8) X10*3/uL RBC 4.08 L (4.20-5.50) X10*6/uL Hgb 11.4 L (12.0-16.0) g/dl Hct 35.9 L (37.0-47.0) % MCV 88.0 (80.0-98.0) fL MCH 27.9 (27.0-33.0) pg MCHC 31.8 (31.0-35.0) g/dl RDW 15.7 (11.0-16.0) % Plt Count 286 (160-400) X10*3/uL MPV 10.8 (9.4-12.3) fL Immature Gran % (Auto) 0.4 (0.0-0.4) % Neut % (Auto) 67.4 (45-73) % Lymph % (Auto) 24.9 (20-40) % Cook % (Auto) 5.5 (2-11) % Eos % (Auto) 1.2 (0-4) % Baso % (Auto) 0.6 (0-2) % Lymph # (Auto) 2.5 (1.2-4.9) X10*3/uL Cook # (Auto) 0.6 (0.1-1.2) X10*3/uL Eos # (Auto) 0.1 (0.0-0.4) X10*3/uL Baso # (Auto) 0.1 (0.0-0.2) X10*3/uL Abs Immat Gran (auto) 0.04 H (0.00-0.03) X10*3/uL Absolute Neuts (auto) 6.7 (2.0-8.3) x10*3/uL Absolute Nucleated RBC 0.000 (0.0-0.012) X10*3/uL Nucleated RBC % (auto) 0.0 (0.0-0.2) /100WBC PT 11.6 (11.1-13.3) SEC INR 1.0 (0.9-1.1) APTT 33.6 (26.0-36.4) SEC Sodium 137 (135-145) mmol/L Potassium 5.2 H (3.3-5.1) mmol/L Chloride 106 (96-108) mmol/L Carbon Dioxide 19 L (22-29) mmol/L Anion Gap 17 (12-20) BUN 46 H (9-16) mg/dL Creatinine 1.99 H (0.5-1.4) mg/dL Estim Creat Clear Calc 25.8 Estimated GFR 26 Random Glucose 245 H (60-115) mg/dL Calcium 9.1 (8.4-10.2) mg/dL Total Bilirubin 0.1 (0.0-1.0) mg/dL AST 15 (5-31) U/L ALT 13 (0-31) U/L Alkaline Phosphatase 103 (39-117) U/L Troponin I High Sens (<3.5-17.0) ng/L B-Natriuretic Peptide (<100) pg/mL Total Protein 8.1 H (6.5-8.0) g/dL Albumin 3.4 L (3.5-5.0) g/dL 02/16/23 02/16/23 02/16/23 Range/Units 10:34 10:34 15:12 WBC (4.8-10.8) X10*3/uL RBC (4.20-5.50) X10*6/uL Hgb (12.0-16.0) g/dl Hct (37.0-47.0) % MCV (80.0-98.0) fL MCH (27.0-33.0) pg MCHC (31.0-35.0) g/dl RDW (11.0-16.0) % Plt Count (160-400) X10*3/uL MPV (9.4-12.3) fL Immature Gran % (Auto) (0.0-0.4) % Neut % (Auto) (45-73) % Lymph % (Auto) (20-40) % Cook % (Auto) (2-11) % Eos % (Auto) (0-4) % Baso % (Auto) (0-2) % Lymph # (Auto) (1.2-4.9) X10*3/uL Cook # (Auto) (0.1-1.2) X10*3/uL Eos # (Auto) (0.0-0.4) X10*3/uL Baso # (Auto) (0.0-0.2) X10*3/uL Abs Immat Gran (auto) (0.00-0.03) X10*3/uL Absolute Neuts (auto) (2.0-8.3) x10*3/uL Absolute Nucleated RBC (0.0-0.012) X10*3/uL Nucleated RBC % (auto) (0.0-0.2) /100WBC PT (11.1-13.3) SEC INR (0.9-1.1) APTT (26.0-36.4) SEC Sodium 137 (135-145) mmol/L Potassium 5.1 (3.3-5.1) mmol/L Chloride 110 H (96-108) mmol/L Carbon Dioxide 19 L (22-29) mmol/L Anion Gap 13 (12-20) BUN 39 H (9-16) mg/dL Creatinine 1.56 H (0.5-1.4) mg/dL Estim Creat Clear Calc 32.8 Estimated GFR 34 Random Glucose 230 H (60-115) mg/dL Calcium 8.7 (8.4-10.2) mg/dL Total Bilirubin 0.2 (0.0-1.0) mg/dL AST 16 (5-31) U/L ALT 13 (0-31) U/L Alkaline Phosphatase 103 (39-117) U/L Troponin I High Sens 4.7 (<3.5-17.0) ng/L B-Natriuretic Peptide < 10 (<100) pg/mL Total Protein 7.8 (6.5-8.0) g/dL Albumin 3.2 L (3.5-5.0) g/dL 02/16/23 02/16/23 Range/Units 15:12 18:44 WBC (4.8-10.8) X10*3/uL RBC (4.20-5.50) X10*6/uL Hgb (12.0-16.0) g/dl Hct (37.0-47.0) % MCV (80.0-98.0) fL MCH (27.0-33.0) pg MCHC (31.0-35.0) g/dl RDW (11.0-16.0) % Plt Count (160-400) X10*3/uL MPV (9.4-12.3) fL Immature Gran % (Auto) (0.0-0.4) % Neut % (Auto) (45-73) % Lymph % (Auto) (20-40) % Cook % (Auto) (2-11) % Eos % (Auto) (0-4) % Baso % (Auto) (0-2) % Lymph # (Auto) (1.2-4.9) X10*3/uL Cook # (Auto) (0.1-1.2) X10*3/uL Eos # (Auto) (0.0-0.4) X10*3/uL Baso # (Auto) (0.0-0.2) X10*3/uL Abs Immat Gran (auto) (0.00-0.03) X10*3/uL Absolute Neuts (auto) (2.0-8.3) x10*3/uL Absolute Nucleated RBC (0.0-0.012) X10*3/uL Nucleated RBC % (auto) (0.0-0.2) /100WBC PT (11.1-13.3) SEC INR (0.9-1.1) APTT (26.0-36.4) SEC Sodium 136 (135-145) mmol/L Potassium 5.4 H (3.3-5.1) mmol/L Chloride 110 H (96-108) mmol/L Carbon Dioxide 18 L (22-29) mmol/L Anion Gap 13 (12-20) BUN 35 H (9-16) mg/dL Creatinine 1.39 (0.5-1.4) mg/dL Estim Creat Clear Calc 36.9 Estimated GFR 39 Random Glucose 363 H* (60-115) mg/dL Calcium 8.6 (8.4-10.2) mg/dL Total Bilirubin 0.2 (0.0-1.0) mg/dL AST 14 (5-31) U/L ALT 12 (0-31) U/L Alkaline Phosphatase 103 (39-117) U/L Troponin I High Sens 3.7 (<3.5-17.0) ng/L B-Natriuretic Peptide (<100) pg/mL Total Protein 7.8 (6.5-8.0) g/dL Albumin 3.2 L (3.5-5.0) g/dL Independent Interpretation I performed an independent interpretation of an: EKG ( Normal sinus rhythm. Ventricular rate 80. Pr interval 134. QRS 70. QTC 438. Negative STEMI), Plain X-Ray and CT Scan Radiology Impression Discussion of test interpretation with radiology: I have reviewed the radiologist's reading. External Record Review External record reviewed: Other (Prior ED visit) Prescription Management I considered prescription management with: Pain Medication Social Determinants Substance abuse Discharge Plan Discharge Clinical Impression: Foot fracture, PAPO (acute kidney injury) Patient Disposition: Home, Self-Care Instructions: Acute Kidney Injury (DC), Foot Fracture in Adults (ED) Additional Instructions: return to the ED immediately for worsening pain, bluish black discoloration, swelling, redness, chest pain, shortness of breath, fever, chills, or any other concerning symptoms. You need to follow-up with orthopedics Prescriptions: New naproxen 500 mg tablet 500 mg PO BID PRN (Reason: pain) 7 Days Qty: 14 0RF No Action naloxone [Narcan] 4 mg/actuation spray,non-aerosol 4 mg intranasal Q2M PRN (Reason: opioid overdose) Qty: 2 0RF Rx Instructions: spray 1 dose into ONE nostril; alternate nostrils w each dose until help arrives insulin glargine [Lantus U-100 Insulin] 100 unit/mL solution 30 unit subcut BEDTIME trazodone 50 mg tablet 1 tab PO BEDTIME lisinopril-hydrochlorothiazide 20-12.5 mg tablet 1 tab PO DAILY lidocaine-prilocaine 2.5-2.5 % cream 1 appl topical DAILY PRN (Reason: Pain) Rx Instructions: apply to affected area gabapentin 800 mg tablet 1 tab PO TID baclofen 10 mg tablet 1 tab PO TID pantoprazole 40 mg tablet,delayed release (DR/EC) 1 tab PO DAILY@0630 ferrous sulfate [FeroSul] 325 mg (65 mg iron) tablet 325 mg PO DAILY metformin 1,000 mg tablet 1 tab PO BID docusate sodium 100 mg capsule 1 cap PO BEDTIME PRN (Reason: constipation) omeprazole 20 mg capsule,delayed release(DR/EC) 1 cap PO DAILY@0630 fluoxetine 20 mg capsule 2 cap PO DAILY Tradjenta 5 mg tablet 1 tab PO DAILY methadone [Methadone Intensol] 10 mg/mL Concentrate 107 mg PO DAILY Referrals: [facility] [place] Orthopedic Surgeons [Provider Group] (Right foot fracture) Stand Alone Forms: Work/School Release Interventions: ED Discharge Assessment Last Done: 02/16/23 20:08 Discharge Date/Time: 02/16/23 20:08 Print Language: Yi
--- NOTE | 2023-02-16 10:37 | MHC.EDTECH ---
Labs collected and sent to lab
[2023-02-16 10:38] LABS: MANUAL DIFF FLAG NO
[2023-02-16 10:40] LABS: Basophils Absolute Auto 0.1 X10*3/uL (0.0-0.2); Basophils Percent Auto 0.6 % (0-2); Eosinophils Absolute Auto 0.1 X10*3/uL (0.0-0.4); Eosinophils Percent Auto 1.2 % (0-4); Hematocrit 35.9 % (37.0-47.0); Hemoglobin 11.4 g/dl (12.0-16.0); Imm Gran Abs Auto 0.04 X10*3/uL (0.00-0.03); Imm Gran Pct Auto 0.4 % (0.0-0.4); Lymphocytes Absolute Auto 2.5 X10*3/uL (1.2-4.9); Lymphocytes Percent Auto 24.9 % (20-40); Mean Corpuscular HGB Conc 31.8 g/dl (31.0-35.0); Mean Corpuscular Hemoglobin 27.9 pg (27.0-33.0); Mean Platelet Volume 10.8 fL (9.4-12.3); Monocytes Absolute Auto 0.6 X10*3/uL (0.1-1.2); Monocytes Percent Auto 5.5 % (2-11); Neutrophils Absolute Auto 6.7 x10*3/uL (2.0-8.3); Neutrophils Percent Auto 67.4 % (45-73); Platelet Count 286 X10*3/uL (160-400); Red Blood Count 4.08 X10*6/uL (4.20-5.50); Red Cell Distribution Width 15.7 % (11.0-16.0)
[2023-02-16 10:45] LABS: Prothrombin Time 11.6 SEC (11.1-13.3)
[2023-02-16 10:47] LABS: Partial Thromboplastin Time 33.6 SEC (26.0-36.4)
[2023-02-16 11:04] LABS: B Type Natriuretic Peptide < 10 pg/mL (<100)
[2023-02-16] MEDS: predniSONE 20 MG TABLET 60 MG PO (11:04)
[2023-02-16 11:09] VITALS: BP 145/64; PULSE 74; RESP 18; O2SAT 95
[2023-02-16 11:21] LABS: Alanine Aminotransferase 13 U/L (0-31); Albumin Level 3.4 g/dL (3.5-5.0); Alkaline Phosphatase 103 U/L (39-117); Anion Gap 17 (12-20); Aspartate Amino Transferase 15 U/L (5-31); Bilirubin Total 0.1 mg/dL (0.0-1.0); Blood Urea Nitrogen 46 mg/dL (9-16); Calcium 9.1 mg/dL (8.4-10.2); Carbon Dioxide 19 mmol/L (22-29); Chloride 106 mmol/L (96-108); Creatinine Clr Calc Pharmacy 25.8; Estimated Glomerular Filt Rate 26; Glucose Random 245 mg/dL (60-115); Potassium 5.2 mmol/L (3.3-5.1); Sodium 137 mmol/L (135-145); Total Protein 8.1 g/dL (6.5-8.0)
[2023-02-16 11:25] LABS: Troponin-I High Sensitivity 4.7 ng/L (<3.5-17.0)
--- NOTE | 2023-02-16 12:21 | MHC.EDTECH ---
Splint applied per PA-C
[2023-02-16] MEDS: 0.9 % Sodium Chloride 1,000 ML 999 ML IV ×3 (13:10→17:38)
--- NOTE | 2023-02-16 15:02 | MHC.EDTECH ---
Urine incontinence care completed. New linens and pads placed. Bed in low, locked position.
--- NOTE | 2023-02-16 15:14 | MHC.EDTECH ---
Labs collected and sent to lab
[2023-02-16 16:53] LABS: Alanine Aminotransferase 13 U/L (0-31); Albumin Level 3.2 g/dL (3.5-5.0); Alkaline Phosphatase 103 U/L (39-117); Anion Gap 13 (12-20); Aspartate Amino Transferase 16 U/L (5-31); Bilirubin Total 0.2 mg/dL (0.0-1.0); Blood Urea Nitrogen 39 mg/dL (9-16); Calcium 8.7 mg/dL (8.4-10.2); Carbon Dioxide 19 mmol/L (22-29); Chloride 110 mmol/L (96-108); Creatinine Clr Calc Pharmacy 32.8; Estimated Glomerular Filt Rate 34; Glucose Random 230 mg/dL (60-115); Potassium 5.1 mmol/L (3.3-5.1); Sodium 137 mmol/L (135-145); Total Protein 7.8 g/dL (6.5-8.0)
[2023-02-16 17:01] LABS: Troponin-I High Sensitivity 3.7 ng/L (<3.5-17.0)
--- NOTE | 2023-02-16 18:46 | MHC.EDTECH ---
Labs collected and sent
[2023-02-16 19:15] LABS: Anion Gap 13 (12-20)
[2023-02-16 19:22] LABS: Alanine Aminotransferase 12 U/L (0-31); Albumin Level 3.2 g/dL (3.5-5.0); Alkaline Phosphatase 103 U/L (39-117); Aspartate Amino Transferase 14 U/L (5-31); Bilirubin Total 0.2 mg/dL (0.0-1.0); Blood Urea Nitrogen 35 mg/dL (9-16); Calcium 8.6 mg/dL (8.4-10.2); Carbon Dioxide 18 mmol/L (22-29); Chloride 110 mmol/L (96-108); Creatinine Clr Calc Pharmacy 36.9; Estimated Glomerular Filt Rate 39; Glucose Random 363 mg/dL (60-115); Potassium 5.4 mmol/L (3.3-5.1); Sodium 136 mmol/L (135-145); Total Protein 7.8 g/dL (6.5-8.0)
[2023-02-16] MEDS: Sodium Polystyrene Sulfon/Sorb 15 GM/60 ML ORAL.SUSP 30 GM PO (19:36)
[2023-02-16 19:38] VITALS: BP 184/74; PULSE 85; RESP 16; TEMP 36.8; O2SAT 97
--- NOTE | 2023-02-16 19:43 | MHC.EDTECH ---
this pct just assumed care of pt ,vitals si8gn taken ,rn Princess is aware of pt high bp
--- NOTE | 2023-02-16 19:59 | MHC.EDTECH ---
PATIENT WAS ASSISTED TO GET DRESS AND WHEELED OUT TO WAITING ROOM .
== END 2023-02-16 20:08 | disposition home or self-care (01) ==
PROVIDERS: Physician Assistant; Emergency Provider Emergency Medicine; PCP Internal Medicine
DX: S92.354A Nondisplaced fracture of fifth metatarsal bone, right foot, initial encounter for closed fracture (principal); W01.0XXA Fall on same level from slipping, tripping and stumbling without subsequent striking against object, initial encounter; N17.9 Acute kidney failure, unspecified; N64.4 Mastodynia; E11.9 Type 2 diabetes mellitus without complications; I10 Essential (primary) hypertension; F11.20 Opioid dependence, uncomplicated; Y93.9 Activity, unspecified; Y92.019 Unspecified place in single-family (private) house as the place of occurrence of the external cause; Y99.9 Unspecified external cause status; Z79.4 Long term (current) use of insulin; Z79.899 Other long term (current) drug therapy
CPT/HCPCS: 29515; 36415; 71045; 73620; 80053; 83880; 84484; 85025; 85610; 85730; 93005; 96360; 96361; 99284

== ENCOUNTER → 2023-02-16 10:18 | Outpatient (BNV) | payer MEDICARE, MEDICAID, SELFPAY | PROVIDERS: Emergency Provider Emergency Medicine; PCP Internal Medicine; Visit Provider Internal Medicine Cardiovascular Disease | DX: N64.4 Mastodynia (principal) | CPT/HCPCS: 93010 ==

== ENCOUNTER → 2023-02-23 15:00 | Outpatient (BNV) | payer MEDICARE, MEDICAID, SELFPAY | PROVIDERS: PCP Internal Medicine; Visit Provider Radiology Diagnostic Radiology | DX: N64.4 Mastodynia (principal) | CPT/HCPCS: 76642; 77062; 77066 ==

== ENCOUNTER 2023-02-23 15:24 | Outpatient (REF) | payer MEDICARE, MEDICAID, SELFPAY ==
--- NOTE | ~2023-02-23 | MM_ITS ---
EXAMINATION: MM DIAGNOSTIC DIGITAL BREAST TOMOSYNTHESIS, BILATERAL US BREAST LIMITED, LEFT MAMMOGRAPHY: CLINICAL INFORMATION: Patient complaining of severe left periareolar and retroareolar pain. Patient also due for screening mammography. Last mammogram was 12/09/2013. COMPARISON: Mammography: 12/09/2013, and plain film mammography which was digitized from 04/21/2005. TECHNIQUE: Digital breast tomosynthesis is performed in both the craniocaudal and mediolateral oblique views along with computer-aided detection (CAD). Synthesized 2D images are generated from the tomosynthesis. FINDINGS: There are scattered areas of fibroglandular density (ACR BI-RADS breast composition Category b). Breasts appears slightly denser and smaller than in 2014, suggestive of weight loss. There is generalized mild trabecular thickening in both breasts, as well as generalized mild skin thickening bilaterally, suggesting CHF. There are no suspicious masses, suspicious grouped calcifications, or areas of architectural distortion. The parenchymal pattern is stable from the remote prior exams. No abnormality was noted in the left periareolar or retroareolar region. ULTRASOUND: CLINICAL INFORMATION: Left periareolar and retroareolar pain. COMPARISON: No relevant prior ultrasound. Mammography dated same day. TECHNIQUE: Targeted sonographic evaluation was performed of the left breast retroareolar and periareolar region using a high frequency linear transducer. Selected archived documentation. FINDINGS: LEFT BREAST: No abnormal fluid collection, mass, abscess, or cystic abnormality is identified. No abnormal acoustic shadowing. Mild edema was noted in the soft tissue planes, further supporting probable CHF. No sonographic abnormality in the retroareolar region left breast. MM/MM tomosynthesis diagnostic BI IMPRESSION: No findings suspicious for malignancy in either breast. No imaging abnormality to explain retroareolar pain left breast. Recommend clinical management. Findings suggesting CHF. OVERALL ASSESSMENT: Mammography: BI-RADS 2 - Benign Findings Ultrasound: BI-RADS 2 - Benign Findings RECOMMENDATION: 1 year F/U Results were provided to the patient at time of visit by the technologist. This patient's information was entered into a reminder system with a target due date for their next mammogram.
== END 2023-02-23 15:25 | disposition home or self-care (01) ==
LOC: HO.MAMMO 15:24
PROVIDERS: PCP Internal Medicine; Visit Provider Internal Medicine
DX: N64.4 Mastodynia (principal)
CPT/HCPCS: 76642; 77062; 77066

== ENCOUNTER 2023-02-24 14:10 | Outpatient (REF) | payer MEDICARE, MEDICAID, SELFPAY ==
[2023-02-24 18:28] LABS: Anion Gap 16 (12-20); Blood Urea Nitrogen 31 mg/dL (9-16); Calcium 9.8 mg/dL (8.4-10.2); Carbon Dioxide 22 mmol/L (22-29); Chloride 108 mmol/L (96-108); Estimated Glomerular Filt Rate 40; Glucose Random 148 mg/dL (60-115); Potassium 4.8 mmol/L (3.3-5.1); Sodium 141 mmol/L (135-145)
[2023-02-24 18:46] LABS: Vitamin D 25-OH Total 19.9 ng/mL (>30)
[2023-02-24 18:48] LABS: Vitamin B12 550 pg/mL (200-900)
== END 2023-02-24 14:11 | disposition home or self-care (01) ==
LOC: HO.CHCLDS 14:10
PROVIDERS: Visit Provider Internal Medicine
DX: E13.649 Other specified diabetes mellitus with hypoglycemia without coma (principal); E67.8 Other specified hyperalimentation
CPT/HCPCS: 36415; 80048; 82306; 82607

== ENCOUNTER 2023-03-04 07:28 | Outpatient (REF) | payer MEDICARE, MEDICAID, SELFPAY | END 2023-03-04 07:29 | disposition home or self-care (01) | LOC: HO.HOSX 07:28 | PROVIDERS: Visit Provider Physician Assistant | DX: Z13.89 Encounter for screening for other disorder (principal) ==

== ENCOUNTER 2023-03-06 09:46 | Emergency (ER) | payer MEDICARE, MEDICAID, SELFPAY ==
--- NOTE | ~2023-03-06 | XR_ITS ---
EXAMINATION: XR RIBS, RIGHT CLINICAL INFORMATION: Pain status post fall COMPARISON: Chest radiograph from 02/16/2023 TECHNIQUE: 4 views of the right ribs were obtained. FINDINGS: Similar appearance of curvilinear lung markings emanating from the lateral margin of the left mid lung vega. Chronic interstitial lung markings. No pneumothorax. Trachea is midline. Cardiac mediastinal silhouette is stable. No large pleural effusion. Soft tissues are unremarkable. Surgical clips in the upper abdomen. Degenerative changes of the thoracolumbar spine. Mildly displaced fracture involving the right lateral fourth rib. Correlation with point tenderness. Osseous structures are unremarkable. Ribs are intact. No fractures are identified. XR/XR ribs RT min 3V w CXR1V IMPRESSION: 1. Similar appearance of curvilinear lung markings emanating from the lateral margin of the left mid lung vega. 2. Chronic interstitial lung markings. 3. Mildly displaced fracture involving the right lateral fourth rib.
[2023-03-06 09:54] VITALS: BP 159/82; PULSE 90; RESP 18; TEMP 36.8; O2SAT 99; BMI 30.3
--- NOTE | 2023-03-06 11:14 | ED_ITS ---
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 Patient denies loss of consciousness at time of fall. She reports pain in her right chest that is worse when breathing in and changing positions. She states that the pain is 10/10. Denies nausea, vomiting. States she also has pain persisting in her right foot, which was scanned on 02/16 after a separate fall and patient was found to have fracture of right 5th metatarsal. Patient states she has not been using crutches. She also reports some confusion surrounding orthopedic referral and has not scheduled an appointment yet. MD complaint: fall Onset (ago): day(s) Fall from: standing Fall witnessed: no Place fall occurred: home Loss of consciousness: none Prolonged down time: no Symptoms prior to fall: none Context: tripped/slipped Location of injury: chest Severity: severe Severity scale (1-10): 10 Quality: sharp Associated symptoms (after fall): denies Related Data Home Medications Medication Instructions Recorded Confirmed baclofen 10 mg tablet 1 tab PO TID 04/19/22 04/19/22 docusate sodium 100 mg capsule 1 cap PO BEDTIME PRN constipation 04/19/22 04/19/22 ferrous sulfate 325 mg (65 mg 325 mg PO DAILY 04/19/22 04/19/22 iron) tablet (FeroSul) fluoxetine 20 mg capsule 2 cap PO DAILY 04/19/22 04/19/22 gabapentin 800 mg tablet 1 tab PO TID 04/19/22 04/19/22 insulin glargine 100 unit/mL 30 unit subcut BEDTIME 04/19/22 04/19/22 subcutaneous solution (Lantus U-100 Insulin) lidocaine-prilocaine 2.5 %-2.5 % 1 appl topical DAILY PRN Pain 04/19/22 04/19/22 topical cream linagliptin 5 mg tablet (Tradjenta) 1 tab PO DAILY 04/19/22 04/19/22 lisinopril 20 1 tab PO DAILY 04/19/22 04/19/22 mg-hydrochlorothiazide 12.5 mg tablet metformin 1,000 mg tablet 1 tab PO BID 04/19/22 04/19/22 omeprazole 20 mg capsule,delayed 1 cap PO DAILY@0630 04/19/22 04/19/22 release pantoprazole 40 mg tablet,delayed 1 tab PO DAILY@0630 04/19/22 04/19/22 release trazodone 50 mg tablet 1 tab PO BEDTIME 04/19/22 04/19/22 methadone 10 mg/mL oral 107 mg PO DAILY 04/21/22 04/21/22 concentrate (Methadone Intensol) Previous Rx's Medication Instructions Recorded naloxone 4 mg/actuation nasal 4 mg intranasal Q2M PRN opioid 11/24/20 spray (Narcan) overdose #2 ea naproxen 500 mg tablet 500 mg PO BID PRN pain 7 days #14 02/16/23 tabs acetaminophen 500 mg tablet 1,000 mg PO Q6H PRN pain #30 tabs 03/06/23 (Tylenol Extra Strength) lidocaine 5 % topical patch 1 patch topical DAILY #15 ea 03/06/23 naproxen 500 mg tablet 500 mg PO BID PRN pain #20 tabs 03/06/23 Allergies Allergy/AdvReac Type Severity Reaction Status Date / Time Penicillins Allergy Mild HIVES Verified 12/03/20 11:11 Review of Systems Review of Systems: Yes all other systems are reviewed and are negative [facility] Past Medical History Medical History Diabetes HTN (hypertension) Opiate use Social History Social History Household Members: Unknown / Unable to assess Housing: Unknown / Unable to assess Unable to assess alcohol history related to: Unable to respond and Unknown Alcohol intake: never Patient Tobacco Use Status: Tobacco use Unknown Substance Use Type: Heroin Advance Directives: No Advance Directives Information Provided: No service: No Current occupational status: disabled Physical Exam Vital Signs: Vital Signs: Last Vital Signs Temp 98.3 F 03/06/23 09:54 Pulse 90 03/06/23 09:54 Resp 18 03/06/23 09:54 BP 159/82 H 03/06/23 09:54 Pulse Ox 99 03/06/23 09:54 O2 Del Method Room Air 03/06/23 09:54 BMI result Body Mass Index 30.3 Const: General: cooperative and no acute distress Orientation/consciousness: patient oriented x3 Chest: Other: Localized tenderness to lateral side of right chest, about nipple line. Tender to palpation along right side of chest. No bruising or abrasions noted on inspection. Chest palpation & inspection: normal inspection of the chest Resp: Effort & Inspection: normal respiratory effort and able to speak in complete sentences Auscultation: clear to auscultation bilaterally Cardio: Rate: regular rate Rhythm: regular rhythm Neuro: General: patient oriented x3 Extrem: Other: Right foot wrapped in posterior short-leg splint. Medical Decision Making Medical Decision Making MDM Narrative: 57-year-old female with history of OUD, CKD, diabetes presents to ER with rib pain after falling a few days ago. She also reports persistent pain in her right foot after a fall sustained a few weeks ago. She was seen in ER for initial fall and given posterior short leg splint, advised to follow up with orthopedics. Today, vital signs are within normal limits. Pain is severe but localized to right rib and right foot. Patient does not complain of shortness of breath, nausea, vomiting, so less likely injury to lung, liver, gallbladder. Physical exam is pertinent for point tenderness to right rib, but otherwise unremarkable. Normal auscultation of heart and lungs. Chest x-ray was done, revealing mildly displaced fracture of right 4th rib. Patient's right foot was re-splinted. Call to orthopedics to confirm referral. Prescribed Tylenol for rib pain and suggested rest. Ordered spirometer for patient to go home with, instructed patient to use a few times per day to prevent pneumonia. Differential Diagnosis Differential Diagnoses: The differential diagnosis associated with the presentation includes Rib fracture, bruising to rib, chostochondritis, pneumothorax, laceration to liver or gallbladder Consult Healthcare Provider Management of the patient was discussed with: Manager Disaster Recovery Dian from [facility] for outpatient follow up Independent Interpretation I performed an independent interpretation of an: Plain X-Ray Interpretation: I have reviewed the radiologist's reading and agree with their interpretation. Radiology Impression Discussion of test interpretation with radiology: I have reviewed the radiologist's reading. Radiologist Impression: EXAMINATION: XR RIBS, RIGHT CLINICAL INFORMATION: Pain status post fall COMPARISON: Chest radiograph from 02/16/2023 TECHNIQUE: 4 views of the right ribs were obtained. FINDINGS: Similar appearance of curvilinear lung markings emanating from the lateral margin of the left mid lung vega. Chronic interstitial lung markings. No pneumothorax. Trachea is midline. Cardiac mediastinal silhouette is stable. No large pleural effusion. Soft tissues are unremarkable. Surgical clips in the upper abdomen. Degenerative changes of the thoracolumbar spine. Mildly displaced fracture involving the right lateral fourth rib. Correlation with point tenderness. Osseous structures are unremarkable. Ribs are intact. No fractures are identified. XR/XR ribs RT min 3V w CXR1V IMPRESSION: 1.? Similar appearance of curvilinear lung markings emanating from the lateral margin of the left mid lung vega. 2.? Chronic interstitial lung markings. 3.? Mildly displaced fracture involving the right lateral fourth rib. External Record Review External record reviewed: Outpatient record and Prior outpatient labs Prescription Management I considered prescription management with: Pain Medication Chronic Conditions Patient?s care impacted by: Other (opioid use disorder, multiple falls) Social Determinants Patient?s care significantly limited by Social Determinants of Health including: Other Social Determinant of Health Critical Care Time Critical Care Time Critical Care Time: No Discharge Plan Discharge Clinical Impression: Fracture of rib Patient Disposition: Home, Self-Care Instructions: Rib Fracture (ED) Additional Instructions: Your x-ray showed 1 rib fracture on the right side. It will heal with time Make sure you are using the spirometer to exercise your lungs and prevent pneumonia Recommend tylenol 975 mg every 8 hours around the clock Take naproxen 500 mg every 12 hours, take with food Use the pain patches as needed Use ice to the area several times per day Follow up with Orthopedics as scheduled on Thursday. If you develop new or worsening symptoms call 911 or come back to the ER for further evaluation. Prescriptions: New lidocaine 5 % adhesive patch,medicated 1 patch topical DAILY Qty: 15 0RF Rx Instructions: leave on most painful area for up to 12 hrs naproxen 500 mg tablet 500 mg PO BID PRN (Reason: pain) Qty: 20 0RF acetaminophen [Tylenol Extra Strength] 500 mg tablet 1,000 mg PO Q6H PRN (Reason: pain) Qty: 30 0RF No Action naloxone [Narcan] 4 mg/actuation spray,non-aerosol 4 mg intranasal Q2M PRN (Reason: opioid overdose) Qty: 2 0RF Rx Instructions: spray 1 dose into ONE nostril; alternate nostrils w each dose until help arrives insulin glargine [Lantus U-100 Insulin] 100 unit/mL solution 30 unit subcut BEDTIME trazodone 50 mg tablet 1 tab PO BEDTIME lisinopril-hydrochlorothiazide 20-12.5 mg tablet 1 tab PO DAILY lidocaine-prilocaine 2.5-2.5 % cream 1 appl topical DAILY PRN (Reason: Pain) Rx Instructions: apply to affected area gabapentin 800 mg tablet 1 tab PO TID baclofen 10 mg tablet 1 tab PO TID pantoprazole 40 mg tablet,delayed release (DR/EC) 1 tab PO DAILY@0630 ferrous sulfate [FeroSul] 325 mg (65 mg iron) tablet 325 mg PO DAILY metformin 1,000 mg tablet 1 tab PO BID docusate sodium 100 mg capsule 1 cap PO BEDTIME PRN (Reason: constipation) omeprazole 20 mg capsule,delayed release(DR/EC) 1 cap PO DAILY@0630 fluoxetine 20 mg capsule 2 cap PO DAILY Tradjenta 5 mg tablet 1 tab PO DAILY methadone [Methadone Intensol] 10 mg/mL Concentrate 107 mg PO DAILY naproxen 500 mg tablet 500 mg PO BID PRN (Reason: pain) 7 Days Qty: 14 0RF Referrals: [facility] [Provider Group] Interventions: ED Discharge Assessment Last Done: 03/06/23 12:19 Discharge Date/Time: 03/06/23 12:23
== END 2023-03-06 12:23 | disposition home or self-care (01) ==
PROVIDERS: Emergency Provider Emergency Medicine; PCP Internal Medicine
DX: S22.31XA Fracture of one rib, right side, initial encounter for closed fracture (principal); R07.81 Pleurodynia; W01.0XXA Fall on same level from slipping, tripping and stumbling without subsequent striking against object, initial encounter; Y93.9 Activity, unspecified; Y92.9 Unspecified place or not applicable; Y99.9 Unspecified external cause status; Z79.899 Other long term (current) drug therapy
CPT/HCPCS: 71101; 99282; 99283

== ENCOUNTER 2023-03-16 06:51 | Outpatient (REF) | payer MEDICARE, MEDICAID, SELFPAY | END 2023-03-16 06:52 | disposition home or self-care (01) | LOC: HO.HOSX 06:51 | PROVIDERS: Visit Provider Physician Assistant | DX: Z13.89 Encounter for screening for other disorder (principal) ==

== ENCOUNTER 2023-03-19 09:59 | Outpatient (REF) | payer MEDICARE, MEDICAID, SELFPAY | END 2023-03-19 10:00 | disposition home or self-care (01) | LOC: HO.HOSX 09:59 | PROVIDERS: Visit Provider Physician Assistant | DX: Z13.89 Encounter for screening for other disorder (principal) ==

== ENCOUNTER 2023-03-19 22:16 | Emergency (ER) | payer MEDICARE, MEDICAID, SELFPAY ==
--- NOTE | ~2023-03-19 | CT_ITS ---
EXAMINATION: CT HEAD WITHOUT CONTRAST CT CERVICAL SPINE WITHOUT CONTRAST CLINICAL INFORMATION: Multiple falls. Pain. COMPARISON: None available. TECHNIQUE: Contiguous axial imaging was performed from the skull base to vertex without intravenous administration of contrast. This CT examination was performed using dose optimization techniques as appropriate, variously including the following: *Automated exposure control *Adjustment of mA and/or kV according to patient size (this includes techniques or standardized protocols for targeted exams where dose is matched to indication/reason for exam; i.e. extremities or head) *Use of iterative reconstruction technique DLP: 688.15 mGy-cm FINDINGS: The lateral, third and fourth ventricles are normally outlined. The cortical sulci and basal cisterns are normally outlined as well. There is no acute territorial defect, hemorrhage or midline shift. The extra-axial spaces are unremarkable. Calvarium: Intact. Maxillofacial sinuses and mastoids: Clear as visualized. Cervical spine: Motion slightly limits evaluation. The vertebral bodies are normally aligned. Disc spaces are maintained. The bone mineralization is normal. The vertebral body heights are maintained. Spinal canal and neuroforamen are patent. The soft tissues are unremarkable. There is upper lobe emphysematous change. CT/CT head/brain wo IV con IMPRESSION: No acute intracranial abnormality. No evidence for cervical spine fracture. Upper lobe emphysematous change.
--- NOTE | ~2023-03-19 | XR_ITS ---
EXAMINATION: XR RIBS, RIGHT CLINICAL INFORMATION: Multiple falls with right rib pain COMPARISON: 02/16/2023, 06/11/2022, 03/06/2023 TECHNIQUE: Single chest image with 3 detailed views of the right ribs FINDINGS: There is no pneumothorax on the chest film. The underlying right lung is grossly clear comparable to previous. Some probable chronic markings are noted. Also noted here is increasing density in the lateral left lung zone. This likely emanates to the pleura thickening of the adjacent pleura. There may be some volume loss in the left lung is result. There is prominent soft tissue density in the region of the AP window on the left. This may represent central adenopathy. Detailed imaging of the right ribs demonstrates fracture at the fourth fifth and sixth right rib XR/XR ribs RT min 3V w CXR1V IMPRESSION: This exam is abnormal. There is abnormal density in the left lung left midlung striated density radiating to the pleura. There is also fullness in the mediastinum the level of the AP window which may indicate adenopathy here. Tumor needs to be suspected on the left. Postcontrast CT is recommended On the right fractures of the right ribs as described. No underlying pneumothorax or effusion
--- NOTE | ~2023-03-19 | CT_ITS ---
EXAMINATION: CT HEAD WITHOUT CONTRAST CT CERVICAL SPINE WITHOUT CONTRAST CLINICAL INFORMATION: Multiple falls. Pain. COMPARISON: None available. TECHNIQUE: Contiguous axial imaging was performed from the skull base to vertex without intravenous administration of contrast. This CT examination was performed using dose optimization techniques as appropriate, variously including the following: *Automated exposure control *Adjustment of mA and/or kV according to patient size (this includes techniques or standardized protocols for targeted exams where dose is matched to indication/reason for exam; i.e. extremities or head) *Use of iterative reconstruction technique DLP: 688.15 mGy-cm FINDINGS: The lateral, third and fourth ventricles are normally outlined. The cortical sulci and basal cisterns are normally outlined as well. There is no acute territorial defect, hemorrhage or midline shift. The extra-axial spaces are unremarkable. Calvarium: Intact. Maxillofacial sinuses and mastoids: Clear as visualized. Cervical spine: Motion slightly limits evaluation. The vertebral bodies are normally aligned. Disc spaces are maintained. The bone mineralization is normal. The vertebral body heights are maintained. Spinal canal and neuroforamen are patent. The soft tissues are unremarkable. There is upper lobe emphysematous change. CT/CT cervical spine wo IV con IMPRESSION: No acute intracranial abnormality. No evidence for cervical spine fracture. Upper lobe emphysematous change.
[2023-03-19 22:25] VITALS: BP 145/71; PULSE 79; RESP 22; TEMP 36.8; O2SAT 94; BMI 29.9
--- NOTE | 2023-03-19 22:30 | ED_ITS ---
HPI - Overdose General Chief Complaint: Overdose Stated Complaint: OVERDOSE 2MG NARCAN Time Seen by Provider: 03/19/23 22:25 Source: EMS Mode of arrival: EMS Limitations: altered mental status History of Present Illness HPI Narrative: patient comes to the emergency room after being found overdose in the bathroom by her who called EMS. When EMS arrived, they administered 2 mg of intranasal Narcan. Patient woke up immediately, started trying to punch and kick them, belligerent, trying to get out of the ambulance, 2 mg of Versed were given to the patient by the EMS crew. On arrival to the ED, patient unresponsive Related Data Home Medications Medication Instructions Recorded Confirmed baclofen 10 mg tablet 1 tab PO TID 04/19/22 04/19/22 docusate sodium 100 mg capsule 1 cap PO BEDTIME PRN constipation 04/19/22 04/19/22 ferrous sulfate 325 mg (65 mg 325 mg PO DAILY 04/19/22 04/19/22 iron) tablet (FeroSul) fluoxetine 20 mg capsule 2 cap PO DAILY 04/19/22 04/19/22 gabapentin 800 mg tablet 1 tab PO TID 04/19/22 04/19/22 insulin glargine 100 unit/mL 30 unit subcut BEDTIME 04/19/22 04/19/22 subcutaneous solution (Lantus U-100 Insulin) lidocaine-prilocaine 2.5 %-2.5 % 1 appl topical DAILY PRN Pain 04/19/22 04/19/22 topical cream linagliptin 5 mg tablet (Tradjenta) 1 tab PO DAILY 04/19/22 04/19/22 lisinopril 20 1 tab PO DAILY 04/19/22 04/19/22 mg-hydrochlorothiazide 12.5 mg tablet metformin 1,000 mg tablet 1 tab PO BID 04/19/22 04/19/22 omeprazole 20 mg capsule,delayed 1 cap PO DAILY@0630 04/19/22 04/19/22 release pantoprazole 40 mg tablet,delayed 1 tab PO DAILY@0630 04/19/22 04/19/22 release trazodone 50 mg tablet 1 tab PO BEDTIME 04/19/22 04/19/22 methadone 10 mg/mL oral 107 mg PO DAILY 04/21/22 04/21/22 concentrate (Methadone Intensol) Previous Rx's Medication Instructions Recorded naloxone 4 mg/actuation nasal 4 mg intranasal Q2M PRN opioid 11/24/20 spray (Narcan) overdose #2 ea naproxen 500 mg tablet 500 mg PO BID PRN pain 7 days #14 02/16/23 tabs acetaminophen 500 mg tablet 1,000 mg (2 x 500 mg) PO Q6H PRN 03/06/23 (Tylenol Extra Strength) pain #30 tabs lidocaine 5 % topical patch 1 patch topical DAILY #15 ea 03/06/23 naproxen 500 mg tablet 500 mg PO BID PRN pain #20 tabs 03/06/23 Allergies Allergy/AdvReac Type Severity Reaction Status Date / Time Penicillins Allergy Mild HIVES Verified 12/03/20 11:11 Review of Systems 2 Review of Systems: Yes Unobtainable due to mental status [facility] Past Medical History Medical History Opiate use Diabetes HTN (hypertension) Social History Social History Household Members: Unknown / Unable to assess Housing: Unknown / Unable to assess Unable to assess alcohol history related to: Unable to respond and Unknown Alcohol intake: unknown Patient Tobacco Use Status: Tobacco use Unknown Substance Use Type: Heroin Advance Directives: No Advance Directives Information Provided: Yes service: No Current occupational status: disabled Physical Exam 2 Vital Signs: Vital Signs: Last Vital Signs Temp 97.7 F 03/20/23 01:09 Pulse 63 03/20/23 01:09 Resp 16 03/20/23 01:09 BP 159/67 H 03/20/23 01:09 Pulse Ox 99 03/20/23 01:09 O2 Del Method Nasal Cannula wit h Capnography 03/20/23 01:09 BMI result Body Mass Index 29.9 Const: Other: Appearance: unresponsive Eyes: pinpoint pupils ENT: Pharynx normal. Neck: Normal inspection. Neck supple. No lymph nodes noted. No crepitus CVS: Normal heart rate and rhythm. Pulses normal. Normal S1 and S2 Respiratory: decreased respiratory effort, being ventilated with Ambu bag Abdomen: Soft and nontender. No rigidity. No distention. Skin: Skin warm and dry. Normal skin color. Normal skin turgor. Extremities: No lower extremity edema. No Lacerations. No Rash Neuro: unresponsive Psych: unresponsive Course Course Course Narrative: - on arrival, patient was unresponsive, was not breathing spontaneously, patient was ventilated with Ambu bag, shortly after, patient woke up spontaneously, aggressive, belligerent but redirectable - the patient's told EMS that the patient has been falling multiple times in the last few days, likely secondary to overdose. CT scan of the head pending - plan: Metabolize to freedom - when patient wakes up, we will assess for SI HI and offer CARE/SUDE eval - patient to be discharged with home Narcan Medical Decision Making Medical Decision Making [facility] Narrative: - my interpretation of head CT: No intracranial bleed -my interpretation of labs: White blood cell count 11.6, likely reactive leukocytosis, chemistry within normal limits, troponin negative -my interpretation of EKG: Normal sinus rhythm, rate 67, nonspecific [address] segment in leads II and III, V3 to V5 -patient medically cleared, waiting for patient to become more sober for crisis/sude evaluation and to offer detox -at this time, 01:20, patient is still sleeping. I am estimating that it will take a few hours for patient to wake up, patient used multiple substances and also EMS gave her Versed for agitation -sign-out given to Dr. Jackson Differential Diagnosis Differential Diagnoses: The differential diagnosis associated with the presentation includes (Anxiety, depression, polysubstance abuse, alcohol abuse, intracranial bleed, subdural hematoma) Admission/Observation Consideration of admission/observation: Escalation of care including admission/observation considered (Patient will be under observation in the emergency room until she is sober and has been evaluated by the care team) Lab Data [facility] Lab Attestation statement: I reviewed the patient's lab results. 03/20/23 00:28 03/20/23 00:28 Labs: Lab Results 03/20/23 Range/Units 00:28 WBC 11.6 H (4.8-10.8) X10*3/uL RBC 3.64 L (4.20-5.50) X10*6/uL Hgb 10.0 L (12.0-16.0) g/dl Hct 31.6 L (37.0-47.0) % MCV 86.8 (80.0-98.0) fL MCH 27.5 (27.0-33.0) pg MCHC 31.6 (31.0-35.0) g/dl RDW 15.9 (11.0-16.0) % Plt Count 387 D (160-400) X10*3/uL MPV 10.0 (9.4-12.3) fL Immature Gran % (Auto) 0.3 (0.0-0.4) % Neut % (Auto) 76.5 H (45-73) % Lymph % (Auto) 16.5 L (20-40) % Kane % (Auto) 6.0 (2-11) % Eos % (Auto) 0.3 (0-4) % Baso % (Auto) 0.4 (0-2) % Lymph # (Auto) 1.9 (1.2-4.9) X10*3/uL Kane # (Auto) 0.7 (0.1-1.2) X10*3/uL Eos # (Auto) 0.0 (0.0-0.4) X10*3/uL Baso # (Auto) 0.1 (0.0-0.2) X10*3/uL Abs Immat Gran (auto) 0.04 H (0.00-0.03) X10*3/uL Absolute Neuts (auto) 8.8 H (2.0-8.3) x10*3/uL Absolute Nucleated RBC 0.000 (0.0-0.012) X10*3/uL Nucleated RBC % (auto) 0.0 (0.0-0.2) /100WBC Sodium 141 (135-145) mmol/L Potassium 4.2 (3.3-5.1) mmol/L Chloride 108 (96-108) mmol/L Carbon Dioxide 23 (22-29) mmol/L Anion Gap 14 (12-20) BUN 23 H (9-16) mg/dL Creatinine 1.00 (0.5-1.4) mg/dL Estim Creat Clear Calc 61.5 Estimated GFR 57 Random Glucose 175 H (60-115) mg/dL Calcium 9.6 (8.4-10.2) mg/dL Total Bilirubin 0.2 (0.0-1.0) mg/dL Direct Bilirubin < 0.2 (0.0-0.5) mg/dL AST 13 (5-31) U/L ALT 9 (0-31) U/L Alkaline Phosphatase 115 (39-117) U/L Troponin I High Sens < 2.7 (<3.5-17.0) ng/L Total Protein 7.7 (6.5-8.0) g/dL Albumin 3.3 L (3.5-5.0) g/dL Ethyl Alcohol < 10 mg/dL Independent Interpretation I performed an independent interpretation of an: CT Scan Radiology Impression Discussion of test interpretation with radiology: I have reviewed the radiologist's reading. Radiologist Impression: FINDINGS: The lateral, third and fourth ventricles are normally outlined. The cortical sulci and basal cisterns are normally outlined as well. There is no acute territorial defect, hemorrhage or midline shift. The extra-axial spaces are unremarkable. Calvarium: Intact. Maxillofacial sinuses and mastoids: Clear as visualized. Cervical spine: Motion slightly limits evaluation. The vertebral bodies are normally aligned. Disc spaces are maintained. The bone mineralization is normal. The vertebral body heights are maintained. Spinal canal and neuroforamen are patent. The soft tissues are unremarkable. There is upper lobe emphysematous change. CT/CT head/brain wo IV con IMPRESSION: No acute intracranial abnormality. No evidence for cervical spine fracture. Upper lobe emphysematous change. Independent Historian Clinical information obtained from an independent historian. History obtained from or confirmed by: EMS External Record Review External record reviewed: Inpatient record (Patient has previously been admitted to ICU and intubated for polysubstance abuse leading to encephalopathy) Critical Care Time Critical Care Time Critical Care Time: Yes Total Critical Care Time: 60 Attestation: I have personally provided critical care time. Time includes review of lab data, radiology results, discussion with consultants, and monitoring for potential decompensation. Intervention performed as documented. Discharge Plan Discharge Clinical Impression: Overdose Patient Disposition: Still a Patient Instructions: Adult Overdose (ED) Prescriptions: No Action naloxone [Narcan] 4 mg/actuation spray,non-aerosol 4 mg intranasal Q2M PRN (Reason: opioid overdose) Qty: 2 0RF Rx Instructions: spray 1 dose into ONE nostril; alternate nostrils w each dose until help arrives insulin glargine [Lantus U-100 Insulin] 100 unit/mL solution 30 unit subcut BEDTIME trazodone 50 mg tablet 1 tab PO BEDTIME lisinopril-hydrochlorothiazide 20-12.5 mg tablet 1 tab PO DAILY lidocaine-prilocaine 2.5-2.5 % cream 1 appl topical DAILY PRN (Reason: Pain) Rx Instructions: apply to affected area gabapentin 800 mg tablet 1 tab PO TID baclofen 10 mg tablet 1 tab PO TID pantoprazole 40 mg tablet,delayed release (DR/EC) 1 tab PO DAILY@0630 ferrous sulfate [FeroSul] 325 mg (65 mg iron) tablet 325 mg PO DAILY metformin 1,000 mg tablet 1 tab PO BID docusate sodium 100 mg capsule 1 cap PO BEDTIME PRN (Reason: constipation) omeprazole 20 mg capsule,delayed release(DR/EC) 1 cap PO DAILY@0630 fluoxetine 20 mg capsule 2 cap PO DAILY Tradjenta 5 mg tablet 1 tab PO DAILY methadone [Methadone Intensol] 10 mg/mL Concentrate 107 mg PO DAILY naproxen 500 mg tablet 500 mg PO BID PRN (Reason: pain) 7 Days Qty: 14 0RF lidocaine 5 % adhesive patch,medicated 1 patch topical DAILY Qty: 15 0RF Rx Instructions: leave on most painful area for up to 12 hrs naproxen 500 mg tablet 500 mg PO BID PRN (Reason: pain) Qty: 20 0RF acetaminophen [Tylenol Extra Strength] 500 mg tablet 1,000 mg PO Q6H PRN (Reason: pain) Qty: 30 0RF
--- NOTE | 2023-03-19 22:30 | MHC.EDTECH ---
PATIENT CAME IS VIA EMS ,PATIENT HAD ON JUST A SHIRT WHICH WAS CUT OFF ,PT VITALS SIGN TAKEN ,PT WAS HOOKED UP TO [employer] ,PT SLEEPING .
[2023-03-19 22:32] VITALS: BP 158/78; PULSE 76; RESP 16; O2SAT 96
--- NOTE | 2023-03-19 22:36 | PC.NURSE ---
pt sleeping, unable to answer safety questions at this time. Pt changed into hosital attire
[2023-03-20] VITALS (7 sets, daily range): BP systolic 136–159; BP diastolic 62–73; PULSE 60–77; RESP 12–16; TEMP 36.1–36.7; O2SAT 95–99
--- NOTE | 2023-03-20 00:10 | ECG_ITS ---
Test Reason : OVERDOSED Blood Pressure : / mmHG Vent. Rate : 067 BPM Atrial Rate : 067 BPM P-R Int : 136 ms QRS Dur : 076 ms QT Int : 434 ms P-R-T Axes : 058 060 059 degrees QTc Int : 458 ms Normal sinus rhythm with sinus arrhythmia Normal ECG When compared with ECG of 16-FEB-2023 10:25, No significant change was found Referred By: Chloe Solis Electronically Signed By:DIANNE DAHL
[2023-03-20 00:32] LABS: MANUAL DIFF FLAG NO
[2023-03-20 00:34] LABS: Basophils Absolute Auto 0.1 X10*3/uL (0.0-0.2); Basophils Percent Auto 0.4 % (0-2); Eosinophils Percent Auto 0.3 % (0-4); Hematocrit 31.6 % (37.0-47.0); Imm Gran Abs Auto 0.04 X10*3/uL (0.00-0.03); Imm Gran Pct Auto 0.3 % (0.0-0.4); Lymphocytes Absolute Auto 1.9 X10*3/uL (1.2-4.9); Lymphocytes Percent Auto 16.5 % (20-40); Mean Corpuscular HGB Conc 31.6 g/dl (31.0-35.0); Mean Corpuscular Hemoglobin 27.5 pg (27.0-33.0); Mean Corpuscular Volume 86.8 fL (80.0-98.0); Monocytes Absolute Auto 0.7 X10*3/uL (0.1-1.2); Neutrophils Absolute Auto 8.8 x10*3/uL (2.0-8.3); Neutrophils Percent Auto 76.5 % (45-73); Platelet Count 387 X10*3/uL (160-400); Red Blood Count 3.64 X10*6/uL (4.20-5.50); Red Cell Distribution Width 15.9 % (11.0-16.0); White Blood Count 11.6 X10*3/uL (4.8-10.8)
[2023-03-20 00:52] LABS: Alanine Aminotransferase 9 U/L (0-31); Albumin Level 3.3 g/dL (3.5-5.0); Alkaline Phosphatase 115 U/L (39-117); Anion Gap 14 (12-20); Aspartate Amino Transferase 13 U/L (5-31); Bilirubin Direct < 0.2 mg/dL (0.0-0.5); Bilirubin Total 0.2 mg/dL (0.0-1.0); Blood Urea Nitrogen 23 mg/dL (9-16); Calcium 9.6 mg/dL (8.4-10.2); Carbon Dioxide 23 mmol/L (22-29); Chloride 108 mmol/L (96-108); Creatinine Clr Calc Pharmacy 61.5; Estimated Glomerular Filt Rate 57; Ethanol < 10 mg/dL; Glucose Random 175 mg/dL (60-115); Potassium 4.2 mmol/L (3.3-5.1); Sodium 141 mmol/L (135-145); Total Protein 7.7 g/dL (6.5-8.0)
[2023-03-20 00:59] LABS: Troponin-I High Sensitivity < 2.7 ng/L (<3.5-17.0)
--- NOTE | 2023-03-20 01:15 | MHC.EDTECH ---
EKG DONE AND WAS READ BY PROVIDER ,VITALS SIGN TAKEN ,PT CONTINUE TO BE ON SKY CAP ,PATIENTS CONTINUE TO SLEEP ,PATIENT IS DRY WAITING TO COLLECT URINE SAMPLE .
--- NOTE | 2023-03-20 06:38 | PC.NURSE ---
Pt yelling outside of room for help. Assisted to use bedpan at this time. Utox collected and sent to lab.
[2023-03-20 06:50] LABS: Amphetamine Screen Urine Not Detected (Not Detect); Barbiturates, Urine Not Detected (Not Detect); Benzodiazepines Screen Urine POSITIVE (Not Detect); Cannabinoid Screen Urine Not Detected (Not Detect); Cocaine Screen Urine POSITIVE (Not Detect); Fentanyl, urine POSITIVE (Not Detect); Opiate Screen Urine POSITIVE (Not Detect); Phencyclidine Screen Urine Not Detected (Not Detect)
[2023-03-20] MEDS: Ketorolac Tromethamine 15 MG/ML VIAL IVPUSH (07:54)
--- NOTE | 2023-03-20 09:39 | PC.NURSE ---
pt axox3, vss, respirations even and unlabored. spoke to daughter per pt permission. both aware of plan of care. daughter states will be here around 1000 to worm picker patient. both deny questions/concerns.
[2023-03-20] MEDS: Naloxone HCl Nasal TAKE HOME 4 MG SPRAY 8 MG NOSTRILALT (10:52)
--- NOTE | 2023-03-20 11:40 | MHC.RECOVRN ---
Sude: Pt reports occasional cocaine use, states when she uses cocaine she gets too hyper and will then use heroin to come down. Pt reports last use one week ago Pt reports she snorts the heroin. Reports history of overdose 1 time , unable to elaborate further Has been using since she was 28, has a methadone clinic that she goes to and gets take home methadone. States she has been to detox years ago but cannot remember the name of the program. Declining offer of reading recovery teacher or resources at this time, stating she does not want her son to find out she is using because he will not let her see her grandchildren. Harm reduction discussion had with pt, pt aware that heroin is cut with xylazine and fentanyl, pt verbalizing understanding at this time.
== END 2023-03-20 10:52 | disposition home or self-care (01) ==
PROVIDERS: Emergency Medicine; Emergency Provider Emergency Medicine Emergency Medical Services
DX: R40.4 Transient alteration of awareness (principal); T50.911A Poisoning by multiple unspecified drugs, medicaments and biological substances, accidental (unintentional), initial encounter; Y92.012 Bathroom of single-family (private) house as the place of occurrence of the external cause; R45.1 Restlessness and agitation; R07.81 Pleurodynia; S22.41XD Multiple fractures of ribs, right side, subsequent encounter for fracture with routine healing; W19.XXXD Unspecified fall, subsequent encounter; R29.6 Repeated falls; E11.9 Type 2 diabetes mellitus without complications; I10 Essential (primary) hypertension; F11.20 Opioid dependence, uncomplicated; Z79.4 Long term (current) use of insulin; Z79.899 Other long term (current) drug therapy
CPT/HCPCS: 36415; 70450; 71101; 72125; 80048; 80076; 80307; 84484; 85025; 93005; 96374; 99285; J1885

== ENCOUNTER 2023-03-26 08:18 | Outpatient (REF) | payer MEDICARE, MEDICAID, SELFPAY | END 2023-03-26 08:19 | disposition home or self-care (01) | LOC: HO.HOSX 08:18 | PROVIDERS: Visit Provider Physician Assistant | DX: Z13.89 Encounter for screening for other disorder (principal) ==

== ENCOUNTER 2023-06-10 09:08 | Emergency (ER) | payer MEDICARE, MEDICAID, SELFPAY ==
[2023-06-10 09:24] VITALS: BP 157/71; PULSE 70; O2SAT 99
--- NOTE | 2023-06-10 09:26 | PC.NURSE ---
PT GIVEN 2 NASAL NARCANS IN ED.
[2023-06-10 09:32] VITALS: BP 143/93; PULSE 68; RESP 10; O2SAT 96; BMI 29.3
--- NOTE | 2023-06-10 10:12 | ED.GENADULT ---
HPI - General Adult General Chief complaint: General Medical Stated complaint: DIZZY PER EMS Time Seen by Provider: 06/10/23 10:09 Source: patient and EMS Mode of arrival: EMS Limitations: no limitations History of Present Illness HPI narrative: Patient is a 57 year old assigned female at with a history of HTN, DM, and polysubstance abuse presenting to the emergency department today with decreased responsiveness. EMS states the 911 call was for dizziness but when they arrived, they found the patient semi-unresponsive. Patient received a dose of intranasal Narcan in the department and became much more responsive. Patient now states that she has no complaints and would like to leave. Patient denies any dizziness, lightheadedness, abdominal pain, nausea, vomiting, fever, chills, blurry vision, double vision, loss of vision, chest pain, difficulty breathing, shortness of breath, back pain, night sweats, pain with urination, increased urinary frequency, increased urinary urgency, blood in her urine or stool, syncope or a near syncopal episode, recent trauma or falls, bowel incontinence, bladder incontinence, bowel retention, bladder retention, or any other complaints at this time. Relieving factors: none Exacerbating factors: none Associated symptoms: denies other symptoms Treatments prior to arrival: none Related Data Home Medications Medication Instructions Recorded Confirmed baclofen 10 mg tablet 1 tab PO TID 04/19/22 04/19/22 docusate sodium 100 mg capsule 1 cap PO BEDTIME PRN constipation 04/19/22 04/19/22 ferrous sulfate 325 mg (65 mg 325 mg PO DAILY 04/19/22 04/19/22 iron) tablet (FeroSul) fluoxetine 20 mg capsule 2 cap PO DAILY 04/19/22 04/19/22 gabapentin 800 mg tablet 1 tab PO TID 04/19/22 04/19/22 insulin glargine 100 unit/mL 30 unit subcut BEDTIME 04/19/22 04/19/22 subcutaneous solution (Lantus U-100 Insulin) lidocaine-prilocaine 2.5 %-2.5 % 1 appl topical DAILY PRN Pain 04/19/22 04/19/22 topical cream linagliptin 5 mg tablet (Tradjenta) 1 tab PO DAILY 04/19/22 04/19/22 lisinopril 20 1 tab PO DAILY 10/15/22 10/15/22 mg-hydrochlorothiazide 12.5 mg tablet metformin 1,000 mg tablet 1 tab PO BID 04/19/22 04/19/22 omeprazole 20 mg capsule,delayed 1 cap PO DAILY@0630 04/19/22 04/19/22 release pantoprazole 40 mg tablet,delayed 1 tab PO DAILY@0630 04/19/22 04/19/22 release trazodone 50 mg tablet 1 tab PO BEDTIME 04/19/22 04/19/22 methadone 10 mg/mL oral 107 mg PO DAILY 04/21/22 04/21/22 concentrate (Methadone Intensol) Previous Rx's Medication Instructions Recorded naloxone 4 mg/actuation nasal 4 mg intranasal Q2M PRN opioid 11/24/20 spray (Narcan) overdose #2 ea naproxen 500 mg tablet 500 mg PO BID PRN pain 7 days #14 02/16/23 tabs acetaminophen 500 mg tablet 1,000 mg (2 x 500 mg) PO Q6H PRN 03/06/23 (Tylenol Extra Strength) pain #30 tabs lidocaine 5 % topical patch 1 patch topical DAILY #15 ea 03/06/23 naproxen 500 mg tablet 500 mg PO BID PRN pain #20 tabs 03/06/23 Allergies Allergy/AdvReac Type Severity Reaction Status Date / Time Penicillins Allergy Mild HIVES Verified 12/03/20 11:11 Review of Systems Constitutional: Constitutional: Reports no additional constitutional complaints, Denies chills, Denies fever(s) and Denies night sweats Eyes: Eyes: Reports no additional eye complaints, Denies blurry vision, Denies change in vision, Denies diplopia, Denies eye discharge, Denies loss of vision and Denies eye pain ENT: Denies dizziness Cardiovascular: Cardiovascular: Reports no additional cardiovascular complaints, Denies chest pain, Denies lightheadedness, Denies Loss of Consciousness and Denies dyspnea Respiratory: Respiratory: Reports no additional respiratory complaints and Denies dyspnea Gastrointestinal: Gastrointestinal: Reports no additional gastrointestinal complaints, Denies abdominal pain, Denies melena, Denies hematochezia, Denies change in bowel habits and Denies change in stool character Genitourinary: Genitourinary: Denies hematuria, Denies urinary frequency, Denies dysuria, Denies urinary incontinence, Denies urinary hesitancy and Denies urinary urgency Musculoskeletal: Musculoskeletal: Reports no additional musculoskeletal complaints, Denies numbness and Denies tingling Neurologic: Denies dizziness, Denies loss of vision, Denies numbness and Denies tingling Psychiatric: Psychiatric: Reports no additional psychiatric complaints Endocrine: Endocrine: Reports no additional endocrine complaints Hematologic/Lymphatic: Hematologic/Lymphatic: Reports no additional hematologic/lymphatic complaints Allergic/Immunologic: Allergic/Immunologic: Reports no additional allergic/immunologic complaints PMFSH Past Medical History Attestation statement: The following information was validated with the patient. Source: old records reviewed and nursing notes reviewed Medical History Positive blood culture Sepsis Acute kidney injury Acute respiratory failure Acute respiratory alkalosis Lactic acidosis Acute encephalopathy Rhabdomyolysis Opiate use Diabetes HTN (hypertension) Social History Social History Household Members: Unknown / Unable to assess Housing: Unknown / Unable to assess Unable to assess alcohol history related to: Unable to respond and Unknown Alcohol intake: unknown Comment: potential for elopment Patient Tobacco Use Status: Tobacco use Unknown Use of substances other than those prescribed or required for medical reasons: Yes Substance Use Type: Heroin Substance Use Frequency: Chronic Longstanding Advance Directives: No Advance Directives Information Provided: Yes service: No Current occupational status: disabled Physical Exam ED Vital Signs: Vital Signs - 24 hr 06/10/23 09:32 Pulse Rate 68 Respiratory Rate 10 L Blood Pressure 143/93 H Pulse Oximetry 96 Oxygen Delivery Method Room Air BMI result Body Mass Index 29.3 Const General: cooperative, no acute distress, alert and awake Nutritional Appearance: well nourished Orientation/consciousness: patient oriented x3 Limitations: no limitations [facility] Head: Yes normal to inspection and Yes atraumatic Ears: hearing grossly normal bilaterally and external ears normal General nose exam: Normal external nose present, no nasal discharge noted and no epistaxis Face and sinus: Yes normal facial exam, No abrasion and No laceration Mouth: Normal oral and palatal mucosa present, no drooling and no muffled voice Eyes General: appearance normal, both eyes and all related structures Periorbital: periorbital findings normal Eyelids: Yes eyelids normal Conjunctivae: conjunctivae normal Pupils: Equal, round and reactive pupils present EOM: EOMs intact bilaterally Neck Neck: Yes normal visual inspection, Yes full ROM and Yes no lymphadenopathy Chest Chest palpation & inspection: normal inspection of the chest Resp Effort & Inspection: normal respiratory effort and able to speak in complete sentences GI Inspection: Yes normal to inspection Neuro General: patient oriented x3 and moves all extremities Cranial nerves: Yes Equal, round and reactive pupils present Cognition (Neuro): normal cognition Motor exam (neuro): 5/5 motor strength present throughout Sensory Exam: Normal double simultaneous stimulation for sensation Coordination: [id number] test normal Extrem General: Yes normal to inspection, Yes full ROM and Yes capillary refill normal Psych Appearance: grossly normal Mental Status: mental status grossly normal Affect: normal affect Attitude: cooperative Thought process: Normal thought process present Thought content: Normal thought content present Insight: Good insight present (Psych) Medications Administered Discontinued Medications Generic Name Dose Route Start Last Admin Trade Name Bel PRN Reason Stop Dose Admin Naloxone HCl 8 mg 06/10/23 10:17 06/10/23 10:38 Naloxone Hcl Nasal Take Home 4 Mg [place] NOSTRILALT 06/10/23 10:18 Not Given ONCE ONE Naloxone HCl 4 mg 06/10/23 10:34 06/10/23 10:43 Naloxone Hcl Nasal 4 Mg [place] NOSTRILALT 06/10/23 10:35 4 mg ONCE ONE Administration Naloxone HCl 4 mg 06/10/23 10:35 06/10/23 10:43 Naloxone Hcl Nasal 4 Mg [place] NOSTRILALT 06/10/23 10:36 4 mg ONCE ONE Administration Medical Decision Making Medical Decision Making [facility] Narrative: Patient is a 57 year old assigned female at with a history of DM, HTN, and polysubstance abuse presenting to the emergency department today after an episode of semi-unresponsiveness, resolved with Narcan. Patient's physical exam was unremarkable. I contacted the addiction team who met with the patient. Patient declined addiction services. Patient was given take home Narcan. I explained my physical exam findings to the patient. I answered all questions asked by the patient. I stressed the importance of the patient taking her medication as prescribed. I stressed the importance of the patient following up with her primary care provider. I stressed the importance of the patient returning to the emergency department immediately if her symptoms were to worsen or if she were to develop any dizziness, shortness of breath, difficulty breathing, chest pain, blurry vision, loss of vision, nausea, vomiting, abdominal pain, fever, chills, back pain, or any other complaints. Patient verbalized agreement and understanding with this treatment plan and discharge. Differential Diagnosis Differential Diagnoses: The differential diagnosis associated with the presentation includes Opiate use Opiate overdose Drug abuse Drug use Consult Healthcare Provider Management of the patient was discussed with: Behavioral Health Provider (spoke with the addiction team as noted in the MDM Rationale portion of this note.) Independent Historian Clinical information obtained from an independent historian. History obtained from or confirmed by: EMS (EMS provided additional history and confirmed the history provided by the patient.) Discharge Plan Discharge Clinical Impression: Drug overdose, Opioid use disorder Patient Disposition: Home, Self-Care Instructions: Adult Overdose (ED), Opioid Use Disorder (ED) Additional Instructions: Please do not do illicit drugs. If you continue to use illicit drugs, please do so in the presence of another human being who may call for help. Follow up with your primary care provider. Return to the emergency department immediately if you develop any dizziness, shortness of breath, difficulty breathing, chest pain, blurry vision, loss of vision, nausea, vomiting, abdominal pain, fever, chills, back pain, or any other complaints. Prescriptions: No Action naloxone [Narcan] 4 mg/actuation spray,non-aerosol 4 mg intranasal Q2M PRN (Reason: opioid overdose) Qty: 2 0RF Rx Instructions: spray 1 dose into ONE nostril; alternate nostrils w each dose until help arrives insulin glargine [Lantus U-100 Insulin] 100 unit/mL solution 30 unit subcut BEDTIME trazodone 50 mg tablet 1 tab PO BEDTIME lisinopril-hydrochlorothiazide 20-12.5 mg tablet 1 tab PO DAILY lidocaine-prilocaine 2.5-2.5 % cream 1 appl topical DAILY PRN (Reason: Pain) Rx Instructions: apply to affected area gabapentin 800 mg tablet 1 tab PO TID baclofen 10 mg tablet 1 tab PO TID pantoprazole 40 mg tablet,delayed release (DR/EC) 1 tab PO DAILY@0630 ferrous sulfate [FeroSul] 325 mg (65 mg iron) tablet 325 mg PO DAILY metformin 1,000 mg tablet 1 tab PO BID docusate sodium 100 mg capsule 1 cap PO BEDTIME PRN (Reason: constipation) omeprazole 20 mg capsule,delayed release(DR/EC) 1 cap PO DAILY@0630 fluoxetine 20 mg capsule 2 cap PO DAILY Tradjenta 5 mg tablet 1 tab PO DAILY methadone [Methadone Intensol] 10 mg/mL Concentrate 107 mg PO DAILY naproxen 500 mg tablet 500 mg PO BID PRN (Reason: pain) 7 Days Qty: 14 0RF lidocaine 5 % adhesive patch,medicated 1 patch topical DAILY Qty: 15 0RF Rx Instructions: leave on most painful area for up to 12 hrs naproxen 500 mg tablet 500 mg PO BID PRN (Reason: pain) Qty: 20 0RF acetaminophen [Tylenol Extra Strength] 500 mg tablet 1,000 mg PO Q6H PRN (Reason: pain) Qty: 30 0RF Referrals: Walter Aiken MD [Primary Care Provider] - Interventions: ED Discharge Assessment Last Done: 06/10/23 10:39 Discharge Date/Time: 06/10/23 10:40 Print Language: [place]
--- NOTE | 2023-06-10 10:33 | PC.NURSE ---
pt ambulatory all over unit, requiring frequent redirection, attempting to leave
--- NOTE | 2023-06-10 10:37 | PC.NURSE ---
pt threw franchesca back at me stating I don't need that
[2023-06-10] MEDS: Naloxone HCl Nasal 4 MG SPRAY NOSTRILALT ×2 (10:43)
--- NOTE | 2023-06-10 11:10 | MHC.RECOVSUP ---
Met with pt in ED17H who is here for YANI. At this time pt is not interested in working with recovery and does not report needing any help or sharing what she has been using stating she just wants to leave.
== END 2023-06-10 10:40 | disposition home or self-care (01) ==
PROVIDERS: Emergency Provider Emergency Medicine Emergency Medical Services; PCP Internal Medicine
DX: T50.901A Poisoning by unspecified drugs, medicaments and biological substances, accidental (unintentional), initial encounter (principal); R40.4 Transient alteration of awareness; F19.10 Other psychoactive substance abuse, uncomplicated; Y92.9 Unspecified place or not applicable; E11.9 Type 2 diabetes mellitus without complications; I10 Essential (primary) hypertension; F11.20 Opioid dependence, uncomplicated; Z79.4 Long term (current) use of insulin; Z79.899 Other long term (current) drug therapy
CPT/HCPCS: 99284

== ENCOUNTER 2023-06-23 16:14 | Outpatient (REF) | payer MEDICARE, MEDICAID, SELFPAY ==
[2023-06-23 17:42] LABS: Appearance Urine Clear; Color Urine Yellow; Glucose Urine UA Negative (Negative); Leukocyte Esterase Urine Negative (Negative); Nitrite Urine Negative (Negative); PH 5.5 (5.0-9.0); Specific Gravity - Urine 1.025 (1.005-1.025); UMIC TRIGGER UA YES; Urine Blood Negative (Negative); Urine Ketones Trace mg/dL (Negative); Urine Protein 300 (3+) mg/dL (Neg-Trace)
[2023-06-23 17:45] LABS: Hematocrit 34.4 % (37.0-47.0); Hemoglobin 10.7 g/dl (12.0-16.0); Mean Corpuscular HGB Conc 31.1 g/dl (31.0-35.0); Mean Corpuscular Hemoglobin 27.9 pg (27.0-33.0); Mean Corpuscular Volume 89.6 fL (80.0-98.0); Mean Platelet Volume 11.3 fL (9.4-12.3); Platelet Count 296 X10*3/uL (160-400); Red Blood Count 3.84 X10*6/uL (4.20-5.50)
[2023-06-23 17:50] LABS: Bacteria Urine None Seen (None Seen); RBC Urine 0-2 /HPF (0-2); WBC Urine 0-5 /HPF (0-5)
[2023-06-23 18:10] LABS: Anion Gap 15 (12-20); Blood Urea Nitrogen 23 mg/dL (9-16); Calcium 8.7 mg/dL (8.4-10.2); Carbon Dioxide 23 mmol/L (22-29); Chloride 104 mmol/L (96-108); Estimated Glomerular Filt Rate 40; Glucose Random 278 mg/dL (60-115); Sodium 138 mmol/L (135-145)
[2023-06-23 18:26] LABS: Microalbum/Creatinine Ratio Ur 786.8 ug/mg cr (<30)
== END 2023-06-23 16:15 | disposition home or self-care (01) ==
LOC: HO.CHCLDS 16:14
PROVIDERS: Visit Provider Internal Medicine
DX: E11.65 Type 2 diabetes mellitus with hyperglycemia (principal); K59.09 Other constipation; Z79.4 Long term (current) use of insulin
CPT/HCPCS: 36415; 80048; 81001; 82043; 82570; 85027

== ENCOUNTER 2023-07-07 00:27 | Inpatient (IN) | payer MEDICARE, MEDICAID, SELFPAY ==
[2023-07-07] VITALS (11 sets, daily range): BP systolic 147–181; BP diastolic 68–86; PULSE 86–112; RESP 14–30; TEMP 36.6–38.1; O2SAT 86–98; BMI 26.6
--- NOTE | ~2023-07-07 | XR_ITS ---
EXAMINATION: XR CHEST CLINICAL INFORMATION: Overdose. COMPARISON: 03/20/2023 TECHNIQUE: Frontal view of the chest was obtained. FINDINGS: The lung volumes are low and the patient is mildly rotated. The cardiomediastinal silhouette is stable. There is mild diffuse increased interstitial markings. There is no focal lung consolidation or pleural effusion. Multiple old/healing right rib fractures are noted. The bony structures are otherwise unremarkable and unchanged. XR/XR chest 1V IMPRESSION: Mild diffuse increased interstitial markings appears to be chronic. There is no focal lung consolidation or pleural effusion.
--- NOTE | ~2023-07-07 | CT_ITS ---
EXAMINATION: CT CHEST WITHOUT CONTRAST CLINICAL INFORMATION: Source of infection COMPARISON: None available. TECHNIQUE: Multidetector volumetric CT imaging of the chest was done. Axial MIP volume rendering provided. Sagittal and coronal reformatted images were obtained. This CT examination was performed using dose optimization techniques as appropriate, variously including the following: *Automated exposure control *Adjustment of mA and/or kV according to patient size (this includes techniques or standardized protocols for targeted exams where dose is matched to indication/reason for exam; i.e. extremities or head) *Use of iterative reconstruction technique DLP: 302 mGy-cm FINDINGS: [employer]IP[employer]: Unremarkable chest exam. LUNGS: There is diffuse emphysematous lungs with diffuse multiple patchy nodular opacities seen in both upper lobes and superior segment lower lobes. There is a large consolidation/mass posteriorly in the right upper lobe. Rest of the lungs are expanded and clear. Mild atelectatic changes are seen throughout lingula, left lower lobe and right middle lobe. MEDIASTINUM: Thyroid lobes are symmetric and normal. The central trachea and the bronchi are widely patent. Significant abnormal pretracheal, precarinal, left para-aortic and right hilar lymphadenopathy is noted. No pericardial effusion seen. Heart size is normal. CORONARY ARTERY CALCIFICATION: There is mild coronary artery calcifications. PLEURA: There is no pleural effusion. No pleural mass or thickening. AXILLA: Small shotty lymph nodes are seen in the axilla bilaterally. UPPER ABDOMEN: Visualized liver, spleen and pancreas unremarkable. Gallbladder has been surgically removed. OSSEOUS STRUCTURES: There are multiple bilateral healed/healing right rib fractures. Moderate ventral spondylosis in mid and lower dorsal spine. CT/CT chest wo IV con IMPRESSION: Abnormal CT chest. Diffuse centrilobular and paraseptal emphysema. There are multiple pulmonary ill-defined pulmonary nodules seen in both upper lobes and superior segment both lower lobes There is a large right upper lobe consolidation/mass. The findings are most suspicious for a primary lung lesion with metastatic nodules. Differential diagnoses and consideration is infectious or inflammatory consolidation with nodules.. Abnormal mediastinal adenopathy. No pleural effusion seen. Multiple bilateral healing or/healed rib fractures. Fleischner guidelines were followed.
[2023-07-07] MEDS: Naloxone HCl Nasal 4 MG SPRAY NOSTRILALT (00:50)
--- NOTE | 2023-07-07 01:07 | ED.OVERDOSE ---
HPI - Overdose General Chief Complaint: Overdose Stated Complaint: AMS Time Seen by Provider: 07/07/23 00:46 Source: EMS Mode of arrival: EMS History of Present Illness HPI Narrative: Patient history of polysubstance abuse cocaine, fentanyl opiate nebulized family called for a well check as she was not responding , lethargic saturating 86% per boyfriend patient might have relapsed ,on 2 L oxygen patient oxygenation improved to 94% no recent fall no signs of injury Related Data Home Medications Medication Instructions Recorded Confirmed baclofen 10 mg tablet 1 tab PO TID 04/19/22 04/19/22 docusate sodium 100 mg capsule 1 cap PO BEDTIME PRN constipation 04/19/22 04/19/22 ferrous sulfate 325 mg (65 mg 325 mg PO DAILY 04/19/22 04/19/22 iron) tablet (FeroSul) fluoxetine 20 mg capsule 2 cap PO DAILY 04/19/22 04/19/22 gabapentin 800 mg tablet 1 tab PO TID 04/19/22 04/19/22 insulin glargine 100 unit/mL 30 unit subcut BEDTIME 04/19/22 04/19/22 subcutaneous solution (Lantus U-100 Insulin) lidocaine-prilocaine 2.5 %-2.5 % 1 appl topical DAILY PRN Pain 04/19/22 04/19/22 topical cream linagliptin 5 mg tablet (Tradjenta) 1 tab PO DAILY 04/19/22 04/19/22 lisinopril 20 1 tab PO DAILY 04/19/22 04/19/22 mg-hydrochlorothiazide 12.5 mg tablet metformin 1,000 mg tablet 1 tab PO BID 04/19/22 04/19/22 omeprazole 20 mg capsule,delayed 1 cap PO DAILY@0630 04/19/22 04/19/22 release pantoprazole 40 mg tablet,delayed 1 tab PO DAILY@0630 04/19/22 04/19/22 release trazodone 50 mg tablet 1 tab PO BEDTIME 04/19/22 04/19/22 methadone 10 mg/mL oral 107 mg PO DAILY 04/21/22 04/21/22 concentrate (Methadone Intensol) Previous Rx's Medication Instructions Recorded naloxone 4 mg/actuation nasal 4 mg intranasal Q2M PRN opioid 11/24/20 spray (Narcan) overdose #2 ea naproxen 500 mg tablet 500 mg PO BID PRN pain 7 days #14 02/16/23 tabs acetaminophen 500 mg tablet 1,000 mg (2 x 500 mg) PO Q6H PRN 03/06/23 (Tylenol Extra Strength) pain #30 tabs lidocaine 5 % topical patch 1 patch topical DAILY #15 ea 03/06/23 naproxen 500 mg tablet 500 mg PO BID PRN pain #20 tabs 03/06/23 Allergies Allergy/AdvReac Type Severity Reaction Status Date / Time Penicillins Allergy Mild HIVES Verified 12/03/20 11:11 Review of Systems Review of Systems: Yes all other systems are reviewed and are negative PMFSH Past Medical History Onset Date is defined in the Problem List Problems that require an onset date and time if occurred within 24 hrs of arrival to the ED Aortic Dissection and Rupture; Neurologic impairment; Cardiopulmonary Arrest; Endotracheal Intubation; Insertion or Replacement of Mechanical Circulatory Assist Device Medical History Positive blood culture Sepsis Acute kidney injury Acute respiratory failure Acute respiratory alkalosis Lactic acidosis Acute encephalopathy Rhabdomyolysis Opiate use Diabetes HTN (hypertension) Social History Social History Household Members: Unknown / Unable to assess Housing: Unknown / Unable to assess Unable to assess alcohol history related to: Unable to respond and Unknown Alcohol intake: unknown Comment: potential for elopment Patient Tobacco Use Status: Tobacco use Unknown Substance Use Type: Heroin service: No Current occupational status: disabled Physical Exam Vital Signs: Vital Signs: Last Vital Signs Pulse 86 07/07/23 00:37 Resp 14 07/07/23 00:37 BP 165/74 H 07/07/23 00:37 Pulse Ox 92 07/07/23 00:37 O2 Del Method Nasal Cannula 07/07/23 00:37 Oxygen Flow Rate 3 07/07/23 00:37 BMI result Body Mass Index 26.6 Appearance: Lethargic Oriented X3. No acute distress. Eyes: PERRLA, No Nystagmus ENT: Pharynx normal. Oral Mucosa moist , AT NC Neck: Normal inspection. Neck supple. CVS: Normal heart rate and rhythm. Pulses normal. Respiratory: No respiratory distress. Equal air entry bilateral, no wheezing/rales/rhonchi Abdomen: Soft and nontender. Bowel sounds are present, no mass palpable, no CVA tenderness Skin: Skin warm and dry. Normal skin color. Normal skin turgor. Extremities: No lower extremity edema. No calf tenderness Neuro: lethargic, No motor deficit. No sensory deficit.No cerebellar signs , cranial nerves II-XII intact Medications Administered Discontinued Medications Generic Name Dose Route Start Last Admin Trade Name Freq PRN Reason Stop Dose Admin Naloxone HCl 4 mg 07/07/23 00:46 07/07/23 00:50 Naloxone Hcl Nasal 4 Mg [place] NOSTRILALT 07/07/23 00:47 4 mg ONCE ONE Administration Ondansetron HCl 4 mg 07/07/23 01:36 07/07/23 01:53 Ondansetron Hcl 4 Mg/2 Ml Vial IVPUSH 07/07/23 01:37 4 mg ONCE ONE Administration Medical Decision Making Medical Decision Making [facility] Narrative: Patient history of polysubstance abuse been here frequently for same likely patient has fentanyl and cocaine tonight responded to Narcan intranasally but starting is vomiting and having watery diarrhea, will observe patient for some time and chest x-ray 0135 Patient started vomiting after received Narcan bilateral conducted sounds awaiting for chest x-ray without her CBC and chemistry Patient signed Dr. Simental pending workup and disposition Differential Diagnosis Differential Diagnoses: The differential diagnosis associated with the presentation includes Polysubstance abuse/atypical infection/pneumonia/aspiration pneumonia Admission/Observation Consideration of admission/observation: Escalation of care including admission/observation considered Lab Data 07/07/23 01:49 07/07/23 01:49 Independent Interpretation I performed an independent interpretation of an: Plain X-Ray Interpretation: Chronic changes in chest Xray Discharge Plan Discharge Clinical Impression: Polysubstance abuse Patient Disposition: Still a Patient Prescriptions: No Action naloxone [Narcan] 4 mg/actuation spray,non-aerosol 4 mg intranasal Q2M PRN (Reason: opioid overdose) Qty: 2 0RF Rx Instructions: spray 1 dose into ONE nostril; alternate nostrils w each dose until help arrives insulin glargine [Lantus U-100 Insulin] 100 unit/mL solution 30 unit subcut BEDTIME trazodone 50 mg tablet 1 tab PO BEDTIME lisinopril-hydrochlorothiazide 20-12.5 mg tablet 1 tab PO DAILY lidocaine-prilocaine 2.5-2.5 % cream 1 appl topical DAILY PRN (Reason: Pain) Rx Instructions: apply to affected area gabapentin 800 mg tablet 1 tab PO TID baclofen 10 mg tablet 1 tab PO TID pantoprazole 40 mg tablet,delayed release (DR/EC) 1 tab PO DAILY@0630 ferrous sulfate [FeroSul] 325 mg (65 mg iron) tablet 325 mg PO DAILY metformin 1,000 mg tablet 1 tab PO BID docusate sodium 100 mg capsule 1 cap PO BEDTIME PRN (Reason: constipation) omeprazole 20 mg capsule,delayed release(DR/EC) 1 cap PO DAILY@0630 fluoxetine 20 mg capsule 2 cap PO DAILY Tradjenta 5 mg tablet 1 tab PO DAILY methadone [Methadone Intensol] 10 mg/mL Concentrate 107 mg PO DAILY naproxen 500 mg tablet 500 mg PO BID PRN (Reason: pain) 7 Days Qty: 14 0RF lidocaine 5 % adhesive patch,medicated 1 patch topical DAILY Qty: 15 0RF Rx Instructions: leave on most painful area for up to 12 hrs naproxen 500 mg tablet 500 mg PO BID PRN (Reason: pain) Qty: 20 0RF acetaminophen [Tylenol Extra Strength] 500 mg tablet 1,000 mg PO Q6H PRN (Reason: pain) Qty: 30 0RF
[2023-07-07] MEDS: ondansetron HCL 4 MG/2 ML VIAL IVPUSH (01:53)
[2023-07-07 01:54] LABS: MANUAL DIFF FLAG NO
[2023-07-07 01:55] LABS: Basophils Absolute Auto 0.1 X10*3/uL (0.0-0.2); Basophils Percent Auto 0.3 % (0-2); Hematocrit 42.2 % (37.0-47.0); Hemoglobin 13.2 g/dl (12.0-16.0); Imm Gran Abs Auto 0.09 X10*3/uL (0.00-0.03); Imm Gran Pct Auto 0.5 % (0.0-0.4); Lymphocytes Absolute Auto 2.6 X10*3/uL (1.2-4.9); Lymphocytes Percent Auto 13.1 % (20-40); Mean Corpuscular HGB Conc 31.3 g/dl (31.0-35.0); Mean Corpuscular Hemoglobin 27.4 pg (27.0-33.0); Mean Corpuscular Volume 87.6 fL (80.0-98.0); Monocytes Percent Auto 5.1 % (2-11); Platelet Count 422 X10*3/uL (160-400); Red Blood Count 4.82 X10*6/uL (4.20-5.50); Red Cell Distribution Width 16.2 % (11.0-16.0); White Blood Count 19.7 X10*3/uL (4.8-10.8)
[2023-07-07 02:10] LABS: Alanine Aminotransferase 9 U/L (0-31); Alkaline Phosphatase 138 U/L (39-117); Anion Gap 21 (12-20); Aspartate Amino Transferase 14 U/L (5-31); Bilirubin Total 0.3 mg/dL (0.0-1.0); Blood Urea Nitrogen 32 mg/dL (9-16); Calcium 10.5 mg/dL (8.4-10.2); Carbon Dioxide 21 mmol/L (22-29); Chloride 104 mmol/L (96-108); Creatinine Clr Calc Pharmacy 41.8; Estimated Glomerular Filt Rate 39; Glucose Random 284 mg/dL (60-115); Potassium 3.6 mmol/L (3.3-5.1); Sodium 142 mmol/L (135-145); Total Protein 9.6 g/dL (6.5-8.0)
--- NOTE | 2023-07-07 02:22 | PC.NURSE ---
Pt from home, family called for a well check, Pt was found to be lethargic, SpO2 86% on RA, EMS placed Pt on 2L via NC with improvement to 94%. Boyfriend reports she might of relapse on substance today. Pt awakens with sternal rub, not answering any questions, not not opening eyes on command. Provider Dr. Watson made aware, Pt narcaned, with minimal effects. Pt vomited x 2. Pt destat to 88%, lung sounds clear, Pt tachypneic. IV line placed, Pt medicated per SEP. Pt incontinent of stool, incontinent care provided with two staff assist. 0246: Pt awakens to tactile stimuli, awakens and falls back to sleep.
[2023-07-07 02:31] LABS: Influenza A PCR NEGATIVE (Negative); Influenza B PCR NEGATIVE (Negative); Resp Syncy Virus RNA Qual PCR NEGATIVE (Negative); SARS COV2 PCR INHOUSE NEGATIVE (Negative)
--- NOTE | 2023-07-07 09:35 | MHC.EDTECH ---
Pt repositioned in bed and cleaned up. Daughter at bedside. Resting in bed quietly, call slater within reach.
--- NOTE | 2023-07-07 09:44 | MHC.RECOVSUP ---
attempted to meet with pt who is here for OD to complete SUDE but pt is not able to communicate at this time. Nurse informed she will let T/W know when pt is up.
--- NOTE | 2023-07-07 11:57 | PC.NURSE ---
patient has for the most part has been lethargic/ sleeping for most of the morning. she did wake up more once the provider and myself were present, requesting to eat, did give her a cup of water but she once she drank immed went back to sleep.
[2023-07-07 12:08] LABS: Glucose, Whole Blood 211 mg/dL (60-115)
[2023-07-07] MEDS: 0.9 % Sodium Chloride 1,000 ML 999 ML IV (12:23)
--- NOTE | 2023-07-07 14:23 | ECG_ITS ---
Test Reason : shortness of breath Blood Pressure : / mmHG Vent. Rate : 092 BPM Atrial Rate : 092 BPM P-R Int : 126 ms QRS Dur : 072 ms QT Int : 388 ms P-R-T Axes : 051 056 055 degrees QTc Int : 479 ms Normal sinus rhythm Normal ECG When compared with ECG of 20-MAR-2023 01:06, No significant change was found Referred By: Omari Perez Electronically Signed By:Shimon Chua
[2023-07-07 14:49] LABS: MANUAL DIFF FLAG NO
[2023-07-07 14:51] LABS: Basophils Percent Auto 0.2 % (0-2); Hematocrit 33.7 % (37.0-47.0); Hemoglobin 10.7 g/dl (12.0-16.0); Imm Gran Pct Auto 0.5 % (0.0-0.4); Lymphocytes Absolute Auto 1.2 X10*3/uL (1.2-4.9); Lymphocytes Percent Auto 6.2 % (20-40); Mean Corpuscular HGB Conc 31.8 g/dl (31.0-35.0); Mean Corpuscular Hemoglobin 26.9 pg (27.0-33.0); Mean Corpuscular Volume 84.7 fL (80.0-98.0); Mean Platelet Volume 10.3 fL (9.4-12.3); Monocytes Absolute Auto 0.9 X10*3/uL (0.1-1.2); Monocytes Percent Auto 4.3 % (2-11); Neutrophils Absolute Auto 17.6 x10*3/uL (2.0-8.3); Neutrophils Percent Auto 88.8 % (45-73); Platelet Count 301 X10*3/uL (160-400); Red Blood Count 3.98 X10*6/uL (4.20-5.50); Red Cell Distribution Width 16.1 % (11.0-16.0); White Blood Count 19.8 X10*3/uL (4.8-10.8)
[2023-07-07 14:52] LABS: Venous Blood Gas Refer to POC result
[2023-07-07 14:52] LABS: VBG Base Excess -1.8 mmol/L; VBG HCO3 21 mmol/L (22-26); VBG pCO2 32 mmHg; VBG pH 7.43 (7.32-7.43); VBG pO2 96 mmHg
[2023-07-07 15:04] LABS: Amphetamine Screen Urine Not Detected (Not Detect); Barbiturates, Urine Not Detected (Not Detect); Benzodiazepines Screen Urine Not Detected (Not Detect); Cannabinoid Screen Urine Not Detected (Not Detect); Cocaine Screen Urine POSITIVE (Not Detect); Fentanyl, urine POSITIVE (Not Detect); Opiate Screen Urine POSITIVE (Not Detect); Phencyclidine Screen Urine Not Detected (Not Detect)
[2023-07-07 15:14] LABS: Lactic Acid 1.7 mmol/L (0.5-2.0)
[2023-07-07 15:14] LABS: Troponin-I High Sensitivity 34.5 ng/L (<3.5-17.0)
[2023-07-07 15:16] LABS: Appearance Urine Clear; Color Urine Yellow; Glucose Urine UA 250 mg/dL (Negative); Leukocyte Esterase Urine Negative (Negative); Nitrite Urine Negative (Negative); UMIC TRIGGER UA YES; Urine Blood Moderate (2+) (Negative); Urine Ketones Negative (Negative); Urine Protein 300 (3+) mg/dL (Neg-Trace)
[2023-07-07 15:19] LABS: B Type Natriuretic Peptide 133 pg/mL (<100)
[2023-07-07] MEDS: Albuterol/Iprat 2.5/0.5MG 3 ML AMPUL.NEB INHALE (15:20)
[2023-07-07 15:24] LABS: Bacteria Urine None Seen (None Seen); Hyaline Casts Urine 0-2 /LPF (0-2); RBC Urine 0-2 /HPF (0-2); WBC Urine 0-5 /HPF (0-5)
[2023-07-07 15:27] LABS: Anion Gap 16 (12-20); Blood Urea Nitrogen 28 mg/dL (9-16); C Reactive Protein 17.15 mg/dL (< or = 0.50); Calcium 8.6 mg/dL (8.4-10.2); Carbon Dioxide 21 mmol/L (22-29); Chloride 107 mmol/L (96-108); Creatinine Clr Calc Pharmacy 52.4; Estimated Glomerular Filt Rate 51; Glucose Random 353 mg/dL (60-115); Magnesium 1.1 mg/dL (1.6-2.6); Potassium 4.4 mmol/L (3.3-5.1); Sodium 140 mmol/L (135-145)
--- NOTE | 2023-07-07 15:52 | MHC.RECOVRN ---
Attempted to meet with pt to complete SUDE after pt BIBA after found lethargic at home. Pt received Narcan in the ED at 12:50AM. Pt sitting in bed, somnolent. Pt only able to tell me she is in a program. Per past visits, pt had been receiving methadone through [facility], 107 mg. When t/w attempted to ask pt questions, pt would not answer, simply look away. Pt has declined SUDE in the past. T/w not able to engage pt at this time.
--- NOTE | 2023-07-07 16:13 | P.HPHOSP_ITS ---
History of Present Illness Date of Service: 07/07/23 Chief Complaint: overdose 57yo F with hx polysubstance abuse on methadone, DM2, and HTN, who was brought to the ED after family called for a wellness check as she was not responding to their calls. She was found lethargic and hypoxic and reportedly may have relapsed. History per ED; patient is a poor historian and denies taking any substances. Utox in the ED positive for opioids, fenntanyl, and cocaine. Her lethargy improved with naloxone and now she is more awake. She started having some vomiting and watery diarrhea. She endorses cough but denies dyspnea or fever. SaO2 improved from 87 to 94% with 2L O2 via NC. She was mildly febrile to 100.6F. She was found to have leukocytosis with WBC 19.8k with 89% PMNs; CRP 17.15; hs-Tn-I 34.5. PCT pending. Glucose 353. Lacate 1.7. Magnesium 1.1. CXR showed interstitial infiltrate. RSV/Covid/flu negative. She was given ceftriaxone, metronidazole, and azithromycin, along with IV magnesium. Review of Systems 2 Review of Systems: Yes all other systems are reviewed and are negative [facility] Medical History Positive blood culture Sepsis Acute kidney injury Acute respiratory failure Acute respiratory alkalosis Lactic acidosis Acute encephalopathy Rhabdomyolysis Opiate use Diabetes HTN (hypertension) Social History Household Members: Unknown / Unable to assess Housing: Unknown / Unable to assess Unable to assess alcohol history related to: Unable to respond and Unknown Alcohol intake: unknown Comment: potential for elopment Patient Tobacco Use Status: Tobacco use Unknown Substance Use Type: Heroin Advance Directives: No Advance Directives Information Provided: No service: No Current occupational status: disabled Meds Allergies Allergy/AdvReac Type Severity Reaction Status Date / Time Penicillins Allergy Mild HIVES Verified 12/03/20 11:11 Active Medications: Current Medications Dextrose (Dextrose 50 % 25 Gm/50 Ml Syringe) 25 gm IVPUSH Q15M PRN; Protocol PRN Reason: per Hypoglycemia Standing Ord. Glucose (Glucose Gel 15 Gm Gel..Gram.) 15 gm PO Q15M PRN; Protocol PRN Reason: per Hypoglycemia Standing Ord. Azithromycin 500 mg/ Sodium (Chloride) 250 mls @ 125 mls/hr IV ONCE ONE Stop: 07/07/23 17:33 Metronidazole (Flagyl) 500 mg in 100 mls @ 100 mls/hr IV ONCE ONE Stop: 07/07/23 16:34 Magnesium Sulfate (Magnesium Sulfate/H2o) 2 gm in 50 mls @ 25 mls/hr IV ONCE ONE Stop: 07/07/23 17:34 Metronidazole (Flagyl) 500 mg in 100 mls @ 100 mls/hr IV Q8H [facility] Ceftriaxone Sodium 1 gm/ (Sodium Chloride) 50 mls @ 100 mls/hr IV Q24H [place] Insulin Human Lispro (Insulin Lispro 100 Unit/Ml 3 Ml Vial) 0 unit SUBCUT QIDACHS [facility]; Protocol Home Medications Medication Instructions Recorded Confirmed Last Taken Type baclofen 10 mg tablet 1 tab PO TID 04/19/22 04/19/22 Unknown History docusate sodium 100 mg capsule 1 cap PO BEDTIME PRN constipation 04/19/22 04/19/22 Unknown History ferrous sulfate 325 mg (65 mg 325 mg PO DAILY 04/19/22 04/19/22 Unknown History iron) tablet (FeroSul) fluoxetine 20 mg capsule 2 cap PO DAILY 04/19/22 04/19/22 Unknown History gabapentin 800 mg tablet 1 tab PO TID 04/19/22 04/19/22 Unknown History insulin glargine 100 unit/mL 30 unit subcut BEDTIME 04/19/22 04/19/22 Unknown History subcutaneous solution (Lantus U-100 Insulin) lidocaine-prilocaine 2.5 %-2.5 % 1 appl topical DAILY PRN Pain 04/19/22 04/19/22 Unknown History topical cream linagliptin 5 mg tablet (Tradjenta) 1 tab PO DAILY 04/19/22 04/19/22 Unknown History lisinopril 20 1 tab PO DAILY 04/19/22 04/19/22 Unknown History mg-hydrochlorothiazide 12.5 mg tablet metformin 1,000 mg tablet 1 tab PO BID 04/19/22 04/19/22 Unknown History omeprazole 20 mg capsule,delayed 1 cap PO DAILY@0630 04/19/22 04/19/22 Unknown History release pantoprazole 40 mg tablet,delayed 1 tab PO DAILY@0630 04/19/22 04/19/22 Unknown History release trazodone 50 mg tablet 1 tab PO BEDTIME 04/19/22 04/19/22 Unknown History methadone 10 mg/mL oral 107 mg PO DAILY 04/21/22 04/21/22 Unknown History concentrate (Methadone Intensol) ibuprofen 600 mg tablet 600 mg PO TID 07/07/23 Unknown History mirtazapine 7.5 mg tablet 7.5 mg PO BEDTIME 07/07/23 Unknown History Physical Exam 2 Vital Signs and Narrative: Vital Signs: Last Vital Signs Temp 100.6 F H 07/07/23 14:47 Pulse 90 07/07/23 15:23 Resp 16 07/07/23 15:23 BP 181/86 H 07/07/23 14:47 Pulse Ox 95 07/07/23 14:56 O2 Del Method Nasal Cannula 07/07/23 14:56 O2 Flow Rate 2 07/07/23 14:56 Oxygen Flow Rate 3 07/07/23 00:37 BMI result Body Mass Index 26.6 Gen: in no acute distress HEENT: sclera anicteric, moist mucus membranes Neck: supple Lungs: bibasilar inspiratory crackles Heart: regular rate and rhythm, no murmurs Abd: soft, non-tender, non-distended Ext: no edema Skin: warm/well-perfused Neuro: alert and oriented x3, no focal findings Psych: appropriate affect Results Labs 07/07/23 14:43 07/07/23 14:43 Labs: Laboratory Results - last 24 hr 07/07/23 07/07/23 07/07/23 01:49 12:04 14:42 MCV 87.6 MCH 27.4 MCHC 31.3 RDW 16.2 H Plt Count 422 H D MPV 10.0 Immature Gran % (Auto) 0.5 H Neut % (Auto) 81.0 H Lymph % (Auto) 13.1 L [place] % (Auto) 5.1 Eos % (Auto) 0.0 Baso % (Auto) 0.3 Lymph # (Auto) 2.6 [place] # (Auto) 1.0 Eos # (Auto) 0.0 Baso # (Auto) 0.1 Abs Immat Gran (auto) 0.09 H Absolute Neuts (auto) 16.0 H Absolute Nucleated RBC 0.000 Nucleated RBC % (auto) 0.0 VBG pH VBG pCO2 VBG pO2 VBG HCO3 VBG O2 Saturation VBG Base Excess Anion Gap 21 H Estim Creat Clear Calc 41.8 Estimated GFR 39 POC Glucose 211 H Random Glucose 284 H Lactic Acid Calcium 10.5 H D Magnesium Total Bilirubin 0.3 AST 14 ALT 9 Alkaline Phosphatase 138 H C-Reactive Protein B-Natriuretic Peptide Total Protein 9.6 H Albumin 4.0 Urine Color Yellow Urine Appearance Clear Urine pH 6.[address] 1.020 Urine Protein 300 (3+) H Urine Glucose (UA) 250 H Urine Ketones Negative Urine Blood Moderate (2+) H Urine Nitrite Negative Ur Leukocyte Esterase Negative Urine RBC 0-2 Urine WBC 0-5 Ur Squamous Epith Cells 6-10 Urine Bacteria None Seen Hyaline Casts 0-2 Urine Opiates Screen POSITIVE H Urine Fentanyl Screen POSITIVE H Ur Barbiturates Screen Not Detected Ur Phencyclidine Scrn Not Detected Ur Amphetamines Screen Not Detected U Benzodiazepines Scrn Not Detected Urine Cocaine Screen POSITIVE H U Marijuana (THC) Screen Not Detected Influenza Type A (PCR) NEGATIVE Influenza Type B (PCR) NEGATIVE RSV RNA Qual (PCR) NEGATIVE SARS-CoV-2 RNA (RT-PCR) NEGATIVE 07/07/23 07/07/23 07/07/23 14:43 14:46 14:56 MCV 84.7 MCH 26.9 L MCHC 31.8 RDW 16.1 H Plt Count 301 D MPV 10.3 Immature Gran % (Auto) 0.5 H Neut % (Auto) 88.8 H Lymph % (Auto) 6.2 L [place] % (Auto) 4.3 Eos % (Auto) 0.0 Baso % (Auto) 0.2 Lymph # (Auto) 1.2 [place] # (Auto) 0.9 Eos # (Auto) 0.0 Baso # (Auto) 0.0 Abs Immat Gran (auto) 0.10 H Absolute Neuts (auto) 17.6 H Absolute Nucleated RBC 0.000 Nucleated RBC % (auto) 0.0 VBG pH 7.43 VBG pCO2 32 VBG pO2 96 VBG HCO3 21 L VBG O2 Saturation 99.0 VBG Base Excess -1.8 Anion Gap 16 Estim Creat Clear Calc 52.4 Estimated GFR 51 POC Glucose Random Glucose 353 H* Lactic Acid 1.7 Calcium 8.6 D Magnesium 1.1 L* Total Bilirubin AST ALT Alkaline Phosphatase C-Reactive Protein 17.15 H B-Natriuretic Peptide 133 H Total Protein Albumin Urine Color Urine Appearance Urine pH Ur Specific [place] Urine Protein Urine Glucose (UA) Urine Ketones Urine Blood Urine Nitrite Ur Leukocyte Esterase Urine RBC Urine WBC Ur Squamous Epith Cells Urine Bacteria Hyaline Casts Urine Opiates Screen Urine Fentanyl Screen Ur Barbiturates Screen Ur Phencyclidine Scrn Ur Amphetamines Screen U Benzodiazepines Scrn Urine Cocaine Screen U Marijuana (THC) Screen Influenza Type A (PCR) Influenza Type B (PCR) RSV RNA Qual (PCR) SARS-CoV-2 RNA (RT-PCR) Imaging Radiologist's Impressions: Impressions Chest X-Ray 07/07/23 02:00 IMPRESSION: Mild diffuse increased interstitial markings appears to be chronic. There is no focal lung consolidation or pleural effusion. Assessment and Plan (1) Pneumonia: Status: Acute Plan 57yo F with hx polysubstance abuse on methadone, DM2, and HTN found lethargic and hypoxic after a wellness check and brought to the ED where she is found to have mild fever, leukocytosis, and elevated CRP with interstitital infiltrates on CXR suspicious for pneumonia, possibly aspiration. AHRF pneumonia - admit to telemetry, give ceftriaxone/doxycycline plus metronidazole given concern for aspiration with overdose, trend PCT, follow BCx, check HIV, wean O2 as tolerated hypoMg - replete, recheck level in AM DM2 - basal-bolus insulin polysubstance abuse - Addiction Medicine consult - confirm methadone dose - screen for HBV/HCV/HIV as she is high-risk VTE ppx - LMWH dispo - TBD code -full Awaiting medication reconciliation at the time of this H+P. I anticipate that the patient will stay at least 2 midnights as an inpatient in the hospital due to the above reasons. It is neither reasonable nor safe to care for them in a less acute setting. Quality Stroke Does the patient have a stroke diagnosis?: No VTE Prior VTE?: No VTE Risk Level:: Medical - moderate - high VTE Device Contraindication: N/A - Device Ordered VTE Drug Contraindication: N/A - Med Ordered
[2023-07-07] MEDS: cefTRIAXone sodium 1 GM in 0.9 % Sodium Chloride 50 ML IV (16:14)
[2023-07-07] MEDS: Acetaminophen 325 MG TABLET 650 MG PO (16:26)
[2023-07-07] MEDS: Acetaminophen 325 MG TABLET 975 MG PO (16:30)
--- NOTE | 2023-07-07 16:40 | PHA.MEDREC ---
Pharmacy Consult ? Medication Reconciliation Pharmacy has completed the medication reconciliation. Patient confirmed medications. Patient goes to [facility] for methadone, rn will need to verifiy dose. Marianela Snell, NicciD
[2023-07-07 16:51] LABS: Procalcitonin 6.34 ng/mL
[2023-07-07] MEDS: Magnesium Sulfate/H2O 2 GM/50 ML PIGGYBACK IV (17:08)
[2023-07-07] MEDS: Azithromycin 500 MG in 0.9 % Sodium Chloride 250 ML 125 MG IV (17:14)
[2023-07-07] MEDS: Morphine Sulfate 4 MG/ML CARTRIDGE IVPUSH (18:23)
[2023-07-07] MEDS: Enoxaparin Sodium 40 MG/0.4 ML SYRINGE SUBCUT (18:23)
--- NOTE | 2023-07-07 19:31 | HO.SUDE ---
CARE Team meets with pt in ED13, pt is admitted to medicine due to AHRF pneumonia. Pt is a 57 year old female, previously known to the recovery team from one prior recent encounter in which pt declined treatment. Per Dr. Munoz there is concern that pt aspirated pneumonia. Pt was brought to the ED today via ambulance after an overdose. Pt does not seem to remember details of how she came to be in the ED, however, states I was going sideways. She reports that she has been using cocaine intranasally for 2 days and as a result did not sleep. She reported that she used heroin also intranasally to bring her down off of the cocaine. It is unclear when pt's relapse began. She reports that she got sober at age 28 and is part of the [facility] clinic. She reports that her children do not know she relapsed and she is afraid she will not be allowed to see her grandchildren if the family finds out about her use. Pt is provided harm reduction education and reports that she was unaware of the prevalence of fentanyl in the drug supply. She is interested in fentanyl test strips. Pt does drive, but her car needs repair. She may be willing to pursue treatment with [facility], but does plan on following up with her counselor at the methadone clinic to get additional supports, reporting that there are groups there she can attend. Pt is ambivalent about seeking individual therapy at this time, but a referral to [facility] will be made on her behalf should she choose to participate. Pt identifies one of her triggers for relapse being that she has been bored and staying in the house too much. She reports feeling generally safe at home. She resides with her ex-partner upstairs, and her adult child and their family live downstairs in the same building. Pt is provided education about drug testing at [facility]. Information for the overdose prevention hotline is discussed, however, pt states that she does tell her ex partner when she is using. She agrees to be discharged with narcan and that she will tell her partner where it is so he can access in the future if needed. Pt is not committed to abstinence from opioids at this time, but does report a plan to stop using cocaine, and begin using opioids in a safer manner. Start small, go slow strategy was discussed with the patient also. Pt will be provided with resources by the CARE Team. Pt is open to seeing the recovery team tomorrow. This is recommended, as pt is still mildly sleepy during this intervention and it is unclear how much info she is retaining. She is easy to engage and willing to hear about her options for treatment/harm reduction. Information about this intervention was passed along to pt's nurse, Gisela and Dr. Munoz.
[2023-07-07] MEDS: Magnesium Oxide 400 MG TABLET 800 MG PO (19:35)
--- NOTE | 2023-07-07 19:35 | PC.NURSE ---
assumed care of pt at this time. delay in med administration per previous shift. iv abx and mag infusing at this time. pt started eating dinner poc not obtained per previous shift/no inuslin admin. Milli pct at bedside for poc at this time. axox4. care team nova completed. awaiting bed assignment; pt requesting pt phone.
--- NOTE | 2023-07-07 19:43 | PC.NURSE ---
left IV infiltrated, very painful, attempted to apply ice and heat but too uncomfortable.
[2023-07-07 19:45] LABS: Glucose, Whole Blood 336 mg/dL (60-115)
[2023-07-07] MEDS: Insulin Glargine,Hum.rec.anlog 100 UNIT/ML 10 ML VIAL 20 UNIT SUBCUT (20:31)
[2023-07-07] MEDS: Insulin Lispro 100 UNIT/ML 3 ML VIAL SUBCUT (20:32)
[2023-07-07] MEDS: metroNIDAZOLE/NS 500 MG/100 ML PIGGYBACK 100 MG IV (20:33)
[2023-07-07] MEDS: Doxycycline Hyclate 100 MG in 0.9 % Sodium Chloride 250 ML 166.67 MG IV (20:33)
[2023-07-07 20:42] LABS: Troponin-I High Sensitivity 20.9 ng/L (<3.5-17.0)
--- NOTE | 2023-07-07 22:23 | MHC.CARE ---
TW completed an [facility] referral for this pt, RAD Team will f/u tomorrow
[2023-07-07] MEDS: Mirtazapine 7.5 MG TABLET PO (22:36)
[2023-07-07] MEDS: Baclofen 10 MG TABLET PO (22:36)
--- NOTE | 2023-07-07 22:55 | PC.NURSE ---
poc as documented; pt medicated per sep. previously insulin not administered by previous shift. Dr. Munoz aware; no further orders at this time. pt ate 100% dinner. iv abx infused completely per sep. pt axox4 resp even and unlabored. sitting in bed eating. call slater placed within reach. nad. pt in hospital gown; no sitter necessary per rn relief charge karen. pt reports OD was accidental; no si/hi.
[2023-07-08] VITALS (8 sets, daily range): BP systolic 124–198; BP diastolic 64–109; PULSE 92–105; RESP 16–20; TEMP 36.3–37.4; O2SAT 94–98
[2023-07-08] MEDS: 0.9 % Sodium Chloride Flush 3 ML SYRINGE IVFLUSH ×3 (01:58→21:24)
[2023-07-08 05:27] LABS: Hematocrit 32.9 % (37.0-47.0); Hemoglobin 10.6 g/dl (12.0-16.0); Mean Corpuscular HGB Conc 32.2 g/dl (31.0-35.0); Mean Corpuscular Hemoglobin 27.3 pg (27.0-33.0); Mean Corpuscular Volume 84.8 fL (80.0-98.0); Mean Platelet Volume 9.9 fL (9.4-12.3); Platelet Count 295 X10*3/uL (160-400); Red Blood Count 3.88 X10*6/uL (4.20-5.50); Red Cell Distribution Width 16.2 % (11.0-16.0); White Blood Count 14.5 X10*3/uL (4.8-10.8)
[2023-07-08 05:44] LABS: Alanine Aminotransferase 7 U/L (0-31); Albumin Level 2.9 g/dL (3.5-5.0); Alkaline Phosphatase 102 U/L (39-117); Anion Gap 10 (12-20); Aspartate Amino Transferase 18 U/L (5-31); Bilirubin Total 0.1 mg/dL (0.0-1.0); Blood Urea Nitrogen 23 mg/dL (9-16); Carbon Dioxide 23 mmol/L (22-29); Chloride 107 mmol/L (96-108); Creatinine Clr Calc Pharmacy 58.1; Estimated Glomerular Filt Rate 57; Glucose Random 290 mg/dL (60-115); Magnesium 1.6 mg/dL (1.6-2.6); Potassium 3.9 mmol/L (3.3-5.1); Sodium 136 mmol/L (135-145); Total Protein 7.5 g/dL (6.5-8.0)
[2023-07-08 06:01] LABS: HBS Num1 3.09 mIU/mL (0-7.99); HBc Num1 0.28 S/CO (0.00-0.79); HBsAGNum1 0.25 S/CO (0.00-0.99); HIV AB/AG Nonreactive (Nonreactive); HIV Num 1 0.06 S/CO (0.00-0.99); Hepatitis B Core Antibody Nonreactive (Nonreactive); Hepatitis B Surface Antigen Negative (Negative); ~HepC Num1 0.12 S/CO (0.00-0.79); ~Hepatitis B Surface Antibody NONREACTIVE (Nonreactive); ~Hepatitis C Antibody Nonreactive (Nonreactive)
[2023-07-08] MEDS: metroNIDAZOLE/NS 500 MG/100 ML PIGGYBACK 100 MG IV (06:32)
[2023-07-08 08:05] LABS: Glucose, Whole Blood 278 mg/dL (60-115)
[2023-07-08] MEDS: Insulin Lispro 100 UNIT/ML 3 ML VIAL SUBCUT ×4 (08:45→21:23)
--- NOTE | 2023-07-08 09:03 | HE.PHANOTE ---
RE: METHADONE DOSING Last methadone dose of 115mg was given on 07/01/23 and given 6 take home bottles with last dose should have been 07/06/23 per Lilian WISE at methadone clinic via fax.
--- NOTE | 2023-07-08 12:12 | MHC.CM.PN ---
IMM 07/08. Pt lives at home with her ex-partner who will transport her home. Pt is self-care. HCP completed with pt, now on file. DCP likely return home self-care vs with new [facility]. PCP: Dr. Walter Aiken
--- NOTE | 2023-07-08 13:08 | PM.CNPUL ---
History of Present Illness History of Present Illness Consult date: 07/08/23 Chief complaint: Pneumonia Narrative: 57-year-old lady active 30+ pack-year smoker, with underlying history of polysubstance abuse now on methadone, diabetes mellitus, hypertension admitted on 07/07/2023 with dyspnea and polysubstance abuse. On CT right-sided infiltrates. Patient started on empiric treatment for community-acquired pneumonia with significant improvement. Pulmonary evaluation requested. Review of Systems Constitutional: Constitutional: Denies daytime sleepiness, Denies excessive sweating, Denies fatigue, Denies fever(s), Denies lethargy, Denies malaise, Denies night sweats, Denies snoring and Denies weight loss Eyes: Eyes: Denies blurry vision and Denies itchy eyes ENT: Denies nasal congestion, Denies post nasal drip, Denies sinus pain, Denies sinus pressure and Denies other ( Thrush) Cardiovascular: Cardiovascular: Denies chest pain, Denies pedal edema, Denies dyspnea, Denies orthopnea and Denies paroxysmal nocturnal dyspnea Respiratory: Respiratory: Reports cough, Denies hemoptysis, Reports excessive phlegm production, Denies dyspnea, Denies snoring and Denies wheezing Gastrointestinal: Gastrointestinal: Denies abdominal pain and Denies heartburn Musculoskeletal: Musculoskeletal: Denies myalgias, Denies arthralgias and Denies joint swelling Integumentary/Breasts: Skin/Breast: Denies rash Neurologic: Denies memory loss and Denies seizure-like activity Psychiatric: Psychiatric: Denies abnormal sleep pattern, Denies anxiety and Denies memory loss Endocrine: Endocrine: Denies excessive sweating, Denies fatigue and Denies heat intolerance Hematologic/Lymphatic: Hematologic/Lymphatic: Denies easy bruising Allergic/Immunologic: Allergic/Immunologic: Denies itchy eyes, Denies seasonal rhinorrhea and Denies wheezing PMFSH Past Medical History Medical History Positive blood culture Sepsis Acute kidney injury Acute respiratory failure Acute respiratory alkalosis Lactic acidosis Acute encephalopathy Rhabdomyolysis Opiate use Diabetes HTN (hypertension) Social History Social History Household Members: Family Housing: Apartment Do you presently have visiting nurse or other home services: No Unable to assess alcohol history related to: Unable to respond and Unknown Alcohol intake: unknown Comment: potential for elopment Patient Tobacco Use Status: Current everyday Tobacco user Tobacco use type: Cigarette Smoked in Last 30 Days: Yes e-Cigarette/Vaping Use: Never Used Patient Interested in Nicotine Replacement: No Patient Given Instructions on How to Stop Smoking: No (Pt. not interested) Use of substances other than those prescribed or required for medical reasons: Yes Substance Use Type: Heroin Substance Use Frequency: Occasionally Last Used Substance: Days (ago) Currently Displaying Signs/Symptoms of Drug Intoxication Withdrawal: No Have you been hit, kicked, punched, or otherwise hurt by someone within the past year? If so, by whom?: No Do you feel safe in your current relationship?: No Current Relationship Is there a partner from a previous relationship who is making you feel unsafe now?: No Are you made to feel afraid or neglected: No Religion Healthcare Practices: Anabaptism Advance Directives: No Advance Directives Information Provided: No Do you have thoughts of harming others: None Do you have a plan to hurt others: No Plan Recently lost weight without trying: No How much weight loss: Not applicable Eating poorly because of decreased appetite: No Nutrition screen score: 0 Nutrition Risks: No Nutritional Risk Patient : No : No Poor oral hygiene: No service: No Current occupational status: disabled Meds Allergies Allergy/AdvReac Type Severity Reaction Status Date / Time Penicillins Allergy Mild HIVES Verified 12/03/20 11:11 Active Medications: Current Medications Acetaminophen (Acetaminophen 325 Mg Tablet) 650 mg PO Q6H PRN PRN Reason: Pain, Mild (Pain Scale 1-3) Last Admin: 07/07/23 16:26 Dose: 650 mg Baclofen (Baclofen 10 Mg Tablet) 10 mg PO TID [facility] Last Admin: 07/08/23 08:46 Dose: 10 mg Dextrose (Dextrose 50 % 25 Gm/50 Ml Syringe) 25 gm IVPUSH Q15M PRN; Protocol PRN Reason: per Hypoglycemia Standing Ord. Docusate Sodium (Docusate Sodium 100 Mg Capsule) 100 mg PO BEDTIME PRN PRN Reason: constipation Enoxaparin Sodium (Enoxaparin Sodium 40 Mg/0.4 Ml Syringe) 40 mg SUBCUT Q24H [facility] Last Admin: 07/07/23 18:23 Dose: 40 mg Ferrous Sulfate (Ferrous Sulfate 324 Mg Tablet.Dr) 324 mg PO DAILY [facility] Last Admin: 07/08/23 08:46 Dose: 324 mg Fluoxetine HCl (Fluoxetine Hcl 20 Mg Capsule) 40 mg PO DAILY [facility] Last Admin: 07/08/23 08:46 Dose: 40 mg Gabapentin (Gabapentin 400 Mg Capsule) 800 mg PO TID [facility] Last Admin: 07/08/23 08:46 Dose: 800 mg Glucose (Glucose Gel 15 Gm Gel..Gram.) 15 gm PO Q15M PRN; Protocol PRN Reason: per Hypoglycemia Standing Ord. Ceftriaxone Sodium 1 gm/ (Sodium Chloride) 50 mls @ 100 mls/hr IV Q24H [facility] Metronidazole (Flagyl) 500 mg in 100 mls @ 100 mls/hr IV Q8H [facility] Last Admin: 07/08/23 12:45 Dose: 100 mls/hr Doxycycline Hyclate 100 mg/ (Sodium Chloride) 250 mls @ 166.67 mls/hr IV Q12H [facility] Last Infusion: 07/08/23 10:50 Dose: Infused Insulin Glargine (Insulin Glargine,Hum.Rec.Anlog 100 Unit/Ml 10 Ml Vial) 25 unit SUBCUT BEDTIME [facility] Insulin Human Lispro (Insulin Lispro 100 Unit/Ml 3 Ml Vial) 0 unit SUBCUT QIDACHS [facility]; Protocol Last Admin: 07/08/23 11:55 Dose: 4 unit Methadone HCl (Methadone Hcl 20 Mg/2 Ml Oral.Conc) 115 mg PO DAILY [facility] Last Admin: 07/08/23 11:55 Dose: 115 mg Mirtazapine (Mirtazapine 7.5 Mg Tablet) 7.5 mg PO BEDTIME [facility] Last Admin: 07/07/23 22:36 Dose: 7.5 mg Omeprazole (Omeprazole 20 Mg Capsule.) 20 mg PO DAILY@0630 [facility] Last Admin: 07/08/23 06:33 Dose: Not Given Ondansetron HCl (Ondansetron Hcl 4 Mg/2 Ml Vial) 4 mg IVPUSH Q8H PRN PRN Reason: Nausea and Vomiting Sodium Chloride (0.9 % Sodium Chloride Flush 3 Ml Syringe) 3 ml IVFLUSH [facility] Last Admin: 07/08/23 08:13 Dose: Not Given Sodium Chloride (0.9 % Sodium Chloride Flush 3 Ml Syringe) 3 ml IVFLUSH [facility] Last Admin: 07/08/23 08:38 Dose: Not Given Home Medications Medication Instructions Recorded Confirmed Last Taken Type baclofen 10 mg tablet 1 tab PO TID 04/19/22 07/07/23 Unknown History docusate sodium 100 mg capsule 1 cap PO BEDTIME PRN constipation 04/19/22 07/07/23 Unknown History ferrous sulfate 325 mg (65 mg 325 mg PO DAILY 04/19/22 07/07/23 Unknown History iron) tablet (FeroSul) fluoxetine 20 mg capsule 2 cap PO DAILY 04/19/22 07/07/23 Unknown History gabapentin 800 mg tablet 1 tab PO TID 04/19/22 07/07/23 Unknown History insulin glargine 100 unit/mL 25 unit subcut BEDTIME 04/19/22 07/07/23 Unknown History subcutaneous solution (Lantus U-100 Insulin) linagliptin 5 mg tablet (Tradjenta) 1 tab PO DAILY 04/19/22 07/07/23 Unknown History metformin 1,000 mg tablet 1 tab PO BID 04/19/22 07/07/23 Unknown History pantoprazole 40 mg tablet,delayed 1 tab PO DAILY@0630 04/19/22 07/07/23 Unknown History release methadone 10 mg/mL oral 115 mg PO DAILY 04/21/22 07/08/23 07/06/23 History concentrate (Methadone Intensol) ibuprofen 600 mg tablet 600 mg PO TID 07/07/23 07/07/23 Unknown History mirtazapine 7.5 mg tablet 7.5 mg PO BEDTIME 07/07/23 07/07/23 Unknown History Physical Exam Vital Signs: Vital Signs: Last Vital Signs Temp 98.4 F 07/08/23 12:00 Pulse 100 07/08/23 12:00 Resp 20 07/08/23 12:00 BP 198/109 H 07/08/23 12:00 Pulse Ox 96 07/08/23 12:00 O2 Del Method Room Air 07/08/23 12:00 O2 Flow Rate 2 07/08/23 01:37 Oxygen Flow Rate 3 07/07/23 00:37 BMI result Body Mass Index 26.6 Const: General: no acute distress and alert Nutritional Appearance: not obese Orientation/consciousness: Other orientation findings ( oriented) HEENT: Head: Yes atraumatic Eyes: General: appearance normal, both eyes and all related structures Sclerae: sclerae normal EOM: EOMs intact bilaterally Neck: Neck: Yes supple Lymphatic: no lymphadenopathy noted Resp: Effort & Inspection: normal respiratory effort and no use of accessory muscles Auscultation: clear to auscultation bilaterally Cardio: Rate: regular rate Rhythm: regular rhythm Heart sounds: no gallops, no murmurs and no rubs Skin: General skin exam: other ( warm) Extrem: General: No clubbing, No cyanosis and No edema Results Laboratory Findings 07/08/23 05:14 07/08/23 05:13 Abnormal lab findings: Abnormal Labs 07/07/23 07/07/23 07/07/23 01:49 12:04 14:42 WBC 19.7 H RBC Hgb Hct MCH RDW 16.2 H Plt Count 422 H D Immature Gran % (Auto) 0.5 H Neut % (Auto) 81.0 H Lymph % (Auto) 13.1 L Abs Immat Gran (auto) 0.09 H Absolute Neuts (auto) 16.0 H VBG HCO3 Carbon Dioxide 21 L Anion Gap 21 H BUN 32 H POC Glucose 211 H Random Glucose 284 H Calcium 10.5 H D Magnesium Alkaline Phosphatase 138 H Troponin I High Sens C-Reactive Protein B-Natriuretic Peptide Total Protein 9.6 H Albumin Urine Protein 300 (3+) H Urine Glucose (UA) 250 H Urine Blood Moderate (2+) H Urine Opiates Screen POSITIVE H Urine Fentanyl Screen POSITIVE H Urine Cocaine Screen POSITIVE H 07/07/23 07/07/23 07/07/23 14:43 14:46 19:39 WBC 19.8 H RBC 3.98 L Hgb 10.7 L Hct 33.7 L D MCH 26.9 L RDW 16.1 H Plt Count Immature Gran % (Auto) 0.5 H Neut % (Auto) 88.8 H Lymph % (Auto) 6.2 L Abs Immat Gran (auto) 0.10 H Absolute Neuts (auto) 17.6 H VBG HCO3 21 L Carbon Dioxide 21 L Anion Gap BUN 28 H POC Glucose 336 H Random Glucose 353 H* Calcium Magnesium 1.1 L* Alkaline Phosphatase Troponin I High Sens 34.5 H D C-Reactive Protein 17.15 H B-Natriuretic Peptide 133 H Total Protein Albumin Urine Protein Urine Glucose (UA) Urine Blood Urine Opiates Screen Urine Fentanyl Screen Urine Cocaine Screen 07/07/23 07/08/23 07/08/23 20:09 05:13 05:14 WBC 14.5 H RBC 3.88 L Hgb 10.6 L Hct 32.9 L MCH RDW 16.2 H Plt Count Immature Gran % (Auto) Neut % (Auto) Lymph % (Auto) Abs Immat Gran (auto) Absolute Neuts (auto) VBG HCO3 Carbon Dioxide Anion Gap 10 L BUN 23 H POC Glucose Random Glucose 290 H Calcium Magnesium Alkaline Phosphatase Troponin I High Sens 20.9 H C-Reactive Protein B-Natriuretic Peptide Total Protein Albumin 2.9 L Urine Protein Urine Glucose (UA) Urine Blood Urine Opiates Screen Urine Fentanyl Screen Urine Cocaine Screen 07/08/23 07/08/23 08:01 11:42 WBC RBC Hgb Hct MCH RDW Plt Count Immature Gran % (Auto) Neut % (Auto) Lymph % (Auto) Abs Immat Gran (auto) Absolute Neuts (auto) VBG HCO3 Carbon Dioxide Anion Gap BUN POC Glucose 278 H 229 H Random Glucose Calcium Magnesium Alkaline Phosphatase Troponin I High Sens C-Reactive Protein B-Natriuretic Peptide Total Protein Albumin Urine Protein Urine Glucose (UA) Urine Blood Urine Opiates Screen Urine Fentanyl Screen Urine Cocaine Screen Assessment and Plan (1) Abnormal CT scan, chest: Status: Acute (2) Pneumonia: Status: Acute Plan Impression: 57-year-old lady admitted with community-acquired pneumonia and polysubstance abuse with CT chest with multifocal infiltrates versus masses. Now improving on empiric antibiotic therapy. Recommendations: Agree with treatment for underlying community-acquired pneumonia with outpatient pulmonary follow-up and repeat of CT chest in 6-8 weeks. Procedures Date of Service Date of Service: 07/08/23
--- NOTE | 2023-07-08 14:20 | HO.PM.IMPN ---
Subjective Subjective Date of Service: 07/08/23 Interval History: coughing endorses taking drugs but ambivalent about details former smoker Review of Systems Review of Systems: Yes all other systems are reviewed and are negative Physical Exam Vital Signs: Vital Signs: .phy.phy Last Vital Signs Temp 98.4 F 07/08/23 12:00 Pulse 100 07/08/23 12:00 Resp 20 07/08/23 12:00 BP 198/109 H 07/08/23 12:00 Pulse Ox 96 07/08/23 12:00 O2 Del Method Room Air 07/08/23 12:00 O2 Flow Rate 2 07/08/23 01:37 Oxygen Flow Rate 3 07/07/23 00:37 BMI result Body Mass Index 26.6 Gen: in no acute distress HEENT: sclera anicteric, moist mucus membranes Neck: supple Lungs: crackles R sided Heart: regular rate and rhythm, no murmurs Abd: soft, non-tender, non-distended Ext: no edema Skin: warm/well-perfused Neuro: alert and oriented x3, no focal findings Psych: appropriate affect Objective Data Active Medications Acetaminophen (Acetaminophen 325 Mg Tablet) 650 mg PO Q6H PRN PRN Reason: Pain, Mild (Pain Scale 1-3) Last Admin: 07/07/23 16:26 Dose: 650 mg Documented By: HENRY Baclofen (Baclofen 10 Mg Tablet) 10 mg PO TID [facility] Last Admin: 07/08/23 08:46 Dose: 10 mg Documented By: FREDRICK Dextrose (Dextrose 50 % 25 Gm/50 Ml Syringe) 25 gm IVPUSH Q15M PRN; Protocol PRN Reason: per Hypoglycemia Standing Ord. Docusate Sodium (Docusate Sodium 100 Mg Capsule) 100 mg PO BEDTIME PRN PRN Reason: constipation Enoxaparin Sodium (Enoxaparin Sodium 40 Mg/0.4 Ml Syringe) 40 mg SUBCUT Q24H [facility] Last Admin: 07/07/23 18:23 Dose: 40 mg Documented By: HENRY Ferrous Sulfate (Ferrous Sulfate 324 Mg Tablet.) 324 mg PO DAILY [facility] Last Admin: 07/08/23 08:46 Dose: 324 mg Documented By: FREDRICK Fluoxetine HCl (Fluoxetine Hcl 20 Mg Capsule) 40 mg PO DAILY [facility] Last Admin: 07/08/23 08:46 Dose: 40 mg Documented By: FREDRICK Gabapentin (Gabapentin 400 Mg Capsule) 800 mg PO TID [facility] Last Admin: 07/08/23 08:46 Dose: 800 mg Documented By: FREDRICK Glucose (Glucose Gel 15 Gm Gel..Gram.) 15 gm PO Q15M PRN; Protocol PRN Reason: per Hypoglycemia Standing Ord. Ceftriaxone Sodium 1 gm/ (Sodium Chloride) 50 mls @ 100 mls/hr IV Q24H [facility] Metronidazole (Flagyl) 500 mg in 100 mls @ 100 mls/hr IV Q8H [facility] Last Infusion: 07/08/23 14:20 Dose: Infused Documented By: FREDRICK Doxycycline Hyclate 100 mg/ (Sodium Chloride) 250 mls @ 166.67 mls/hr IV Q12H [facility] Last Infusion: 07/08/23 10:50 Dose: Infused Documented By: FREDRICK Insulin Glargine (Insulin Glargine,Hum.Rec.Anlog 100 Unit/Ml 10 Ml Vial) 25 unit SUBCUT BEDTIME [facility] Insulin Human Lispro (Insulin Lispro 100 Unit/Ml 3 Ml Vial) 0 unit SUBCUT QIDACHS [facility]; Protocol Last Admin: 07/08/23 11:55 Dose: 4 unit Documented By: FREDRICK Methadone HCl (Methadone Hcl 20 Mg/2 Ml Oral.Conc) 115 mg PO DAILY [facility] Last Admin: 07/08/23 11:55 Dose: 115 mg Documented By: FREDRICK Mirtazapine (Mirtazapine 7.5 Mg Tablet) 7.5 mg PO BEDTIME [facility] Last Admin: 07/07/23 22:36 Dose: 7.5 mg Documented By: GERARDO Omeprazole (Omeprazole 20 Mg Capsule.Dr) 20 mg PO DAILY@0630 [facility] Last Admin: 07/08/23 06:33 Dose: Not Given Documented By: GERARDO Non-Admin Reason: Patient Refused Ondansetron HCl (Ondansetron Hcl 4 Mg/2 Ml Vial) 4 mg IVPUSH Q8H PRN PRN Reason: Nausea and Vomiting Sodium Chloride (0.9 % Sodium Chloride Flush 3 Ml Syringe) 3 ml IVFLUSH QSHIFT [facility] Last Admin: 07/08/23 08:13 Dose: Not Given Documented By: FREDRICK Non-Admin Reason: IV Running Sodium Chloride (0.9 % Sodium Chloride Flush 3 Ml Syringe) 3 ml IVFLUSH QSHIFT [facility] Last Admin: 07/08/23 08:38 Dose: Not Given Documented By: FREDRICK Non-Admin Reason: IV Running Labs 07/08/23 05:14 07/08/23 05:13 Labs: Laboratory Results - last 24 hr 07/07/23 07/07/23 07/07/23 14:42 14:43 14:46 MCV 84.7 MCH 26.9 L MCHC 31.8 RDW 16.1 H Plt Count 301 D MPV 10.3 Immature Gran % (Auto) 0.5 H Neut % (Auto) 88.8 H Lymph % (Auto) 6.2 L [place] % (Auto) 4.3 Eos % (Auto) 0.0 Baso % (Auto) 0.2 Lymph # (Auto) 1.2 [place] # (Auto) 0.9 Eos # (Auto) 0.0 Baso # (Auto) 0.0 Abs Immat Gran (auto) 0.10 H Absolute Neuts (auto) 17.6 H Absolute Nucleated RBC 0.000 Nucleated RBC % (auto) 0.0 VBG pH 7.43 VBG pCO2 32 VBG pO2 96 VBG HCO3 21 L VBG O2 Saturation 99.0 VBG Base Excess -1.8 Anion Gap 16 Estim Creat Clear Calc 52.4 Estimated GFR 51 POC Glucose Random Glucose 353 H* Lactic Acid Calcium 8.6 D Magnesium 1.1 L* Total Bilirubin AST ALT Alkaline Phosphatase C-Reactive Protein 17.15 H B-Natriuretic Peptide 133 H Total Protein Albumin Procalcitonin 6.34 Urine Color Yellow Urine Appearance Clear Urine pH 6.0 Ur Specific [place] 1.020 Urine Protein 300 (3+) H Urine Glucose (UA) 250 H Urine Ketones Negative Urine Blood Moderate (2+) H Urine Nitrite Negative Ur Leukocyte Esterase Negative Urine RBC 0-2 Urine WBC 0-5 Ur Squamous Epith Cells 6-10 Urine Bacteria None Seen Hyaline Casts 0-2 Urine Opiates Screen POSITIVE H Urine Fentanyl Screen POSITIVE H Ur Barbiturates Screen Not Detected Ur Phencyclidine Scrn Not Detected Ur Amphetamines Screen Not Detected U Benzodiazepines Scrn Not Detected Urine Cocaine Screen POSITIVE H U Marijuana (THC) Screen Not Detected Hep Bs Antigen Hep Bs Antibody Hep B Core Total Ab Hepatitis C Ab (EIA) HIV 1&2 Ab/P24 Ag 4thGn 07/07/23 07/07/23 07/08/23 14:56 19:39 05:13 MCV MCH MCHC RDW Plt Count MPV Immature Gran % (Auto) Neut % (Auto) Lymph % (Auto) [place] % (Auto) Eos % (Auto) Baso % (Auto) Lymph # (Auto) [place] # (Auto) Eos # (Auto) Baso # (Auto) Abs Immat Gran (auto) Absolute Neuts (auto) Absolute Nucleated RBC Nucleated RBC % (auto) VBG pH VBG pCO2 VBG pO2 VBG HCO3 VBG O2 Saturation VBG Base Excess Anion Gap 10 L Estim Creat Clear Calc 58.1 Estimated GFR 57 POC Glucose 336 H Random Glucose 290 H Lactic Acid 1.7 Calcium 9.0 Magnesium 1.6 Total Bilirubin 0.1 AST 18 ALT 7 Alkaline Phosphatase 102 C-Reactive Protein B-Natriuretic Peptide Total Protein 7.5 Albumin 2.9 L Procalcitonin Urine Color Urine Appearance Urine pH Ur Specific [place] Urine Protein Urine Glucose (UA) Urine Ketones Urine Blood Urine Nitrite Ur Leukocyte Esterase Urine RBC Urine WBC Ur Squamous Epith Cells Urine Bacteria Hyaline Casts Urine Opiates Screen Urine Fentanyl Screen Ur Barbiturates Screen Ur Phencyclidine Scrn Ur Amphetamines Screen U Benzodiazepines Scrn Urine Cocaine Screen U Marijuana (THC) Screen Hep Bs Antigen Negative Hep Bs Antibody NONREACTIVE Hep B Core Total Ab Nonreactive Hepatitis C Ab (EIA) Nonreactive HIV 1&2 Ab/P24 Ag 4thGn Nonreactive 07/08/23 07/08/23 07/08/23 05:14 08:01 11:42 MCV 84.8 MCH 27.3 MCHC 32.2 RDW 16.2 H Plt Count 295 MPV 9.9 Immature Gran % (Auto) Neut % (Auto) Lymph % (Auto) [place] % (Auto) Eos % (Auto) Baso % (Auto) Lymph # (Auto) [place] # (Auto) Eos # (Auto) Baso # (Auto) Abs Immat Gran (auto) Absolute Neuts (auto) Absolute Nucleated RBC 0.000 Nucleated RBC % (auto) 0.0 VBG pH VBG pCO2 VBG pO2 VBG HCO3 VBG O2 Saturation VBG Base Excess Anion Gap Estim Creat Clear Calc Estimated GFR POC Glucose 278 H 229 H Random Glucose Lactic Acid Calcium Magnesium Total Bilirubin AST ALT Alkaline Phosphatase C-Reactive Protein B-Natriuretic Peptide Total Protein Albumin Procalcitonin Urine Color Urine Appearance Urine pH Ur Specific [place] Urine Protein Urine Glucose (UA) Urine Ketones Urine Blood Urine Nitrite Ur Leukocyte Esterase Urine RBC Urine WBC Ur Squamous Epith Cells Urine Bacteria Hyaline Casts Urine Opiates Screen Urine Fentanyl Screen Ur Barbiturates Screen Ur Phencyclidine Scrn Ur Amphetamines Screen U Benzodiazepines Scrn Urine Cocaine Screen U Marijuana (THC) Screen Hep Bs Antigen Hep Bs Antibody Hep B Core Total Ab Hepatitis C Ab (EIA) HIV 1&2 Ab/P24 Ag 4thGn Impressions Chest CT 07/07/23 18:54 IMPRESSION: Abnormal CT chest. Diffuse centrilobular and paraseptal emphysema. There are multiple pulmonary ill-defined pulmonary nodules seen in both upper lobes and superior segment both lower lobes There is a large right upper lobe consolidation/mass. The findings are most suspicious for a primary lung lesion with metastatic nodules. Differential diagnoses and consideration is infectious or inflammatory consolidation with nodules.. Abnormal mediastinal adenopathy. No pleural effusion seen. Multiple bilateral healing or/healed rib fractures. Fleischner guidelines were followed. Assessment and Plan (1) Abnormal CT scan, chest: Status: Acute (2) Pneumonia: Status: Acute Plan d2 57yo F with hx polysubstance abuse on methadone, DM2, and HTN found lethargic and hypoxic after a wellness check and brought to the ED where she is found to have mild fever, leukocytosis, and elevated CRP with interstitital infiltrates on CXR suspicious for pneumonia, possibly aspiration. CT chest shows masslike consolidation RUL AHRF - resolved, off O2 pneumonia - d2 ceftriaxone/doxycycline/ metronidazole, trend PCT, follow BCx, HIV negative mass-like consolidation of RUL - Pulm consulted, recommend treat with ABX and re-image in 6-8 wk, will need outpt f/u elevated BP - monitor, if remains elevated, may need antihypertensive hypoMg - repleted DM2 with hyperglycemia - basal-bolus insulin polysubstance abuse - Addiction Medicine consult - confirmed and restarted methadone dose - HBV/HCV/HIV screen negative mood disorder - fluoxetine, mirtazapine chronic pain - baclofen, gabapentin VTE ppx - LMWH dispo - eventual home In my clinical judgment, the patient requires continued inpatient hospitalization for the following reasons: IV ABX Total time managing care of this patient today: 45 minutes. Quality Stroke Does the patient have a stroke diagnosis?: No VTE Prior VTE?: No VTE Risk Level:: Medical - moderate - high VTE Device Contraindication: N/A - Device Ordered VTE Drug Contraindication: N/A - Med Ordered
--- NOTE | 2023-07-08 15:13 | PC.NURSE ---
Pt. arrived to unit from ED. BP elevated 192/93. MD Rosy notified. Plan to administer Methadone and recheck. Methadone administered and recheck BP 179/80. MD Rosy aware of BP. No new orders at this time.
--- NOTE | 2023-07-08 15:28 | MHC.RECOVRN ---
Met with to follow up after SUDE yesterday. Pt sitting in bed, awake, alert, engages in conversation. Pt reports heroin use, 1-2 bags daily, IN, as well as cocaine, INH. Pt reports health concerns have scared her, states I'm not going to use drugs anymore. This time it's different. Pt reports she is interested in working on her mental health, informed her a referral for [facility] has been submitted. Discussed harm reduction and provided pt with fentanyl test strips. Also provided pt with written resources including recovery coaching, [facility], multiple pathways for recovery, and PHP/IOP. Pt denies questions or concerns for t/w.
[2023-07-08] MEDS: cefTRIAXone sodium 1 GM in 0.9 % Sodium Chloride 50 ML IV (15:57)
[2023-07-08] MEDS: Enoxaparin Sodium 40 MG/0.4 ML SYRINGE SUBCUT (17:07)
--- NOTE | 2023-07-08 22:32 | MHC.CARE ---
[facility] could not contact pt, Tw spoke with Blank and provided CC with her cellphone to contact her.?
[2023-07-09 03:29] VITALS: BP 168/72; PULSE 85; RESP 20; TEMP 36.8; O2SAT 94
[2023-07-09 07:22] VITALS: BP 138/85; PULSE 92; RESP 18; TEMP 36.4; O2SAT 93
[2023-07-09 07:54] LABS: Hematocrit 34.2 % (37.0-47.0); Hemoglobin 11.1 g/dl (12.0-16.0); Mean Corpuscular HGB Conc 32.5 g/dl (31.0-35.0); Mean Corpuscular Hemoglobin 27.7 pg (27.0-33.0); Mean Corpuscular Volume 85.3 fL (80.0-98.0); Mean Platelet Volume 10.5 fL (9.4-12.3); Platelet Count 305 X10*3/uL (160-400); Red Blood Count 4.01 X10*6/uL (4.20-5.50); Red Cell Distribution Width 16.3 % (11.0-16.0); White Blood Count 12.3 X10*3/uL (4.8-10.8)
[2023-07-09 08:14] LABS: Anion Gap 14 (12-20); Blood Urea Nitrogen 17 mg/dL (9-16); Calcium 9.4 mg/dL (8.4-10.2); Carbon Dioxide 24 mmol/L (22-29); Chloride 104 mmol/L (96-108); Creatinine Clr Calc Pharmacy 68.4; Estimated Glomerular Filt Rate > 60; Glucose Random 178 mg/dL (60-115); Potassium 3.8 mmol/L (3.3-5.1); Sodium 138 mmol/L (135-145)
[2023-07-09 08:30] LABS: Procalcitonin 2.91 ng/mL
[2023-07-09] MEDS: 0.9 % Sodium Chloride Flush 3 ML SYRINGE IVFLUSH (08:35)
[2023-07-09 11:11] VITALS: BP 138/85; PULSE 92; O2SAT 93
[2023-07-09 11:30] VITALS: BP 135/83; PULSE 74; RESP 18; TEMP 36.1; O2SAT 95
[2023-07-09] MEDS: Acetaminophen 325 MG TABLET 650 MG PO (13:17)
[2023-07-09 15:22] VITALS: BP 143/72; PULSE 71; RESP 18; TEMP 36.2; O2SAT 93
--- NOTE | 2023-07-09 15:23 | MHC.CM.PN ---
EMR reviewed and per MD rounds, pt will be medically cleared for D/C pending negative blood cultures x 48 hours. Pt will D/C home with [facility] for SN[facility]PT. Pts ex-partner will transport her home.
--- NOTE | 2023-07-09 15:33 | W.MHC.F2F ---
Service Date Service Date: 07/09/23 Encounter Date of encounter: 07/09/23 Reasons for Services Signs and symptoms assessed: Impaired Gait Pattern, Impaired Standing Balance,Muscle Weakness Reason for [place] [facility]: medication management, medication treatment and teach disease management Reason for physical therapy: home safety and mobility, therapeutic exercises, gait/transfer training, assess need for DME, ADL training and energy conservation MD Overseeing Care: Walter Aiken Homebound: Leaving the home is medically contraindicated at this time without the asist of a device and/or another person due th the listed conditions above and below. Reason homebound: unsteady gait / fall risk and weakness related to hospital stay Homebound supporting statement: Gait Training, Therapeutic Activities, Therapeutic Exercise, Patient Education, Safety,Balance Certification: Based on the above findings, I certify that this patient is confined to the home and needs intermittent [place] [facility] care, physical therapy and/or speech therapy, or continues to need occupational therapy. The patient is under my care, and I have initiated the establishment of the plan of care. The patient will be followed by a physician who will periodically review the plan of care. Time Spent With Patient Time: Total time managing care of this patient today ____ minutes.
--- NOTE | 2023-07-09 16:08 | PM.DS ---
DS: Providers Provider Date of Service: 07/09/23 Date of admission: 07/07/23 18:55 Date of discharge: 07/09/23 Primary care physician: Walter Aiken MD Consults: 07/07/23 15:51 Addiction Medicine Routine Consulting Provider: [facility] Reason for consultation: SUBSTANCE ABUSE 07/08/23 08:11 Consult to Pulmonology Routine Consulting Provider: [facility] Pulmonology Services Reason for consultation: large right upper lobe consolidation/mass. DS: Diagnosis Discharge Diagnosis (1) Abnormal CT scan, chest: Status: Acute (2) Pneumonia: Status: Acute (3) Polysubstance abuse: Status: Acute (4) Acute hypoxic respiratory failure: Status: Acute (5) Drug overdose: Status: Acute (6) Toxic metabolic encephalopathy: Status: Acute DS: Summary Hospital Course Hospital Course: from my admission H+P, 07/07/23: 57yo F with hx polysubstance abuse on methadone, DM2, and HTN, who was brought to the ED after family called for a wellness check as she was not responding to their calls. She was found lethargic and hypoxic and reportedly may have relapsed. History per ED; patient is a poor historian and denies taking any substances. Utox in the ED positive for opioids, fenntanyl, and cocaine. Her lethargy improved with naloxone and now she is more awake. She started having some vomiting and watery diarrhea. She endorses cough but denies dyspnea or fever. SaO2 improved from 87 to 94% with 2L O2 via NC. She was mildly febrile to 100.6F. She was found to have leukocytosis with WBC 19.8k with 89% PMNs; CRP 17.15; hs-Tn-I 34.5. PCT pending. Glucose 353. Lacate 1.7. Magnesium 1.1. CXR showed interstitial infiltrate. RSV/Covid/flu negative. She was given ceftriaxone, metronidazole, and azithromycin, along with IV magnesium. 57yo F with hx polysubstance abuse on methadone, DM2, and HTN found lethargic and hypoxic after a wellness check and brought to the ED where she was found to have mild fever, leukocytosis, and elevated CRP with interstitital infiltrates on CXR suspicious for pneumonia. She was admitted to the [facility] [place]. CT chest showed masslike consolidation RUL suspicious for primary lung lesions with metastatic nodules. Pulmonology was consulted and their recommendation was to treat with a full course of antibiotics and re-image in 6-8 weeks with outpatient follow-up, as infection could still explain the findings. She was weaned off oxygen. She was treated with IV ceftriaxone, doxycycline, and metronidazole. Blood cultures were negative. HIV serology was negative. Methadone was continued and she met with the Addiciton Medicine/Recovery Team. She was counseled to avoid substances of abuse. She was discharged home with VNA services and will need Pulmonology follow-up. Time Attestation Discharge coordination time: Greater than 30 minutes Quality: Safe Use of Opioids Does Pt have an Active Cancer Diagnosis on the Problem List?: No Quality: Stroke Does the patient have a stroke diagnosis?: No Physical Exam Vital Signs: Vital Signs: Last Vital Signs Temp 97.1 F 07/09/23 15:22 Pulse 71 07/09/23 15:22 Resp 18 07/09/23 15:22 BP 143/72 H 07/09/23 15:22 Pulse Ox 93 07/09/23 15:22 O2 Del Method Room Air 07/09/23 15:22 O2 Flow Rate 2 07/08/23 01:37 Oxygen Flow Rate 3 07/07/23 00:37 BMI result Body Mass Index 26.6 Gen: in no acute distress HEENT: sclera anicteric, moist mucus membranes Neck: supple Lungs: crackles R sided Heart: regular rate and rhythm, no murmurs Abd: soft, non-tender, non-distended Ext: no edema Skin: warm/well-perfused Neuro: alert and oriented x3, no focal findings Psych: appropriate affect DS: Data Data Completed and Pending Completed studies during hospitalization [Text1]: Laboratory Results WBC 12.3 X10*3/uL (4.8-10.8) H 07/09/23 07:10 RBC 4.01 X10*6/uL (4.20-5.50) L 07/09/23 07:10 Hgb 11.1 g/dl (12.0-16.0) L 07/09/23 07:10 Hct 34.2 % (37.0-47.0) L 07/09/23 07:10 MCV 85.3 fL (80.0-98.0) 07/09/23 07:10 MCH 27.7 pg (27.0-33.0) 07/09/23 07:10 MCHC 32.5 g/dl (31.0-35.0) 07/09/23 07:10 RDW 16.3 % (11.0-16.0) H 07/09/23 07:10 Plt Count 305 X10*3/uL (160-400) 07/09/23 07:10 MPV 10.5 fL (9.4-12.3) 07/09/23 07:10 Immature Gran % (Auto) 0.5 % (0.0-0.4) H 07/07/23 14:43 Neut % (Auto) 88.8 % (45-73) H 07/07/23 14:43 Lymph % (Auto) 6.2 % (20-40) L 07/07/23 14:43 Delta % (Auto) 4.3 % (2-11) 07/07/23 14:43 Eos % (Auto) 0.0 % (0-4) 07/07/23 14:43 Baso % (Auto) 0.2 % (0-2) 07/07/23 14:43 Lymph # (Auto) 1.2 X10*3/uL (1.2-4.9) 07/07/23 14:43 [place] # (Auto) 0.9 X10*3/uL (0.1-1.2) 07/07/23 14:43 Eos # (Auto) 0.0 X10*3/uL (0.0-0.4) 07/07/23 14:43 Baso # (Auto) 0.0 X10*3/uL (0.0-0.2) 07/07/23 14:43 Abs Immat Gran (auto) 0.10 X10*3/uL (0.00-0.03) H 07/07/23 14:43 Absolute Neuts (auto) 17.6 x10*3/uL (2.0-8.3) H 07/07/23 14:43 Absolute Nucleated RBC 0.000 X10*3/uL (0.0-0.012) 07/09/23 07:10 Nucleated RBC % (auto) 0.0 /100WBC (0.0-0.2) 07/09/23 07:10 VBG pH 7.43 (7.32-7.43) 07/07/23 14:46 VBG pCO2 32 mmHg 07/07/23 14:46 VBG pO2 96 mmHg 07/07/23 14:46 VBG HCO3 21 mmol/L (22-26) L 07/07/23 14:46 VBG O2 Saturation 99.0 % 07/07/23 14:46 VBG Base Excess -1.8 mmol/L 07/07/23 14:46 Sodium 138 mmol/L (135-145) 07/09/23 07:10 Potassium 3.8 mmol/L (3.3-5.1) 07/09/23 07:10 Chloride 104 mmol/L (96-108) 07/09/23 07:10 Carbon Dioxide 24 mmol/L (22-29) 07/09/23 07:10 Anion Gap 14 (12-20) 07/09/23 07:10 BUN 17 mg/dL (9-16) H 07/09/23 07:10 Creatinine 0.85 mg/dL (0.5-1.4) 07/09/23 07:10 Estim Creat Clear Calc 68.4 07/09/23 07:10 Estimated GFR > 60 07/09/23 07:10 POC Glucose 150 mg/dL (60-115) H 07/09/23 11:07 Random Glucose 178 mg/dL (60-115) H 07/09/23 07:10 Lactic Acid 1.7 mmol/L (0.5-2.0) 07/07/23 14:56 Calcium 9.4 mg/dL (8.4-10.2) 07/09/23 07:10 Magnesium 1.6 mg/dL (1.6-2.6) 07/08/23 05:13 Total Bilirubin 0.1 mg/dL (0.0-1.0) 07/08/23 05:13 AST 18 U/L (5-31) 07/08/23 05:13 ALT 7 U/L (0-31) 07/08/23 05:13 Alkaline Phosphatase 102 U/L (39-117) 07/08/23 05:13 Troponin I High Sens 20.9 ng/L (<3.5-17.0) H 07/07/23 20:09 C-Reactive Protein 17.15 mg/dL (< or = 0.50) H 07/07/23 14:43 B-Natriuretic Peptide 133 pg/mL (<100) H 07/07/23 14:43 Total Protein 7.5 g/dL (6.5-8.0) 07/08/23 05:13 Albumin 2.9 g/dL (3.5-5.0) L 07/08/23 05:13 Procalcitonin 2.91 ng/mL 07/09/23 07:10 Urine Color Yellow 07/07/23 14:42 Urine Appearance Clear 07/07/23 14:42 Urine pH 6.0 (5.0-9.0) 07/07/23 14:42 Ur Specific [place] 1.020 (1.005-1.025) 07/07/23 14:42 Urine Protein 300 (3+) mg/dL (Neg-Trace) H 07/07/23 14:42 Urine Glucose (UA) 250 mg/dL (Negative) H 07/07/23 14:42 Urine Ketones Negative mg/dL (Negative) 07/07/23 14:42 Urine Blood Moderate (2+) (Negative) H 07/07/23 14:42 Urine Nitrite Negative (Negative) 07/07/23 14:42 Ur Leukocyte Esterase Negative (Negative) 07/07/23 14:42 Urine RBC 0-2 /HPF (0-2) 07/07/23 14:42 Urine WBC 0-5 /HPF (0-5) 07/07/23 14:42 Ur Squamous Epith Cells 6-10 /HPF (0-2) 07/07/23 14:42 Urine Bacteria None Seen (None Seen) 07/07/23 14:42 Hyaline Casts 0-2 /LPF (0-2) 07/07/23 14:42 Urine Opiates Screen POSITIVE (Not Detect) H 07/07/23 14:42 Urine Fentanyl Screen POSITIVE (Not Detect) H 07/07/23 14:42 Ur Barbiturates Screen Not Detected (Not Detect) 07/07/23 14:42 Ur Phencyclidine Scrn Not Detected (Not Detect) 07/07/23 14:42 Ur Amphetamines Screen Not Detected (Not Detect) 07/07/23 14:42 U Benzodiazepines Scrn Not Detected (Not Detect) 07/07/23 14:42 Urine Cocaine Screen POSITIVE (Not Detect) H 07/07/23 14:42 U Marijuana (THC) Screen Not Detected (Not Detect) 07/07/23 14:42 Hep Bs Antigen Negative (Negative) 07/08/23 05:13 Hep Bs Antibody NONREACTIVE (Nonreactive) 07/08/23 05:13 Hep B Core Total Ab Nonreactive (Nonreactive) 07/08/23 05:13 Hepatitis C Ab (EIA) Nonreactive (Nonreactive) 07/08/23 05:13 HIV 1&2 Ab/P24 Ag 4thGn Nonreactive (Nonreactive) 07/08/23 05:13 Influenza Type A (PCR) NEGATIVE (Negative) 07/07/23 01:49 Influenza Type B (PCR) NEGATIVE (Negative) 07/07/23 01:49 RSV RNA Qual (PCR) NEGATIVE (Negative) 07/07/23 01:49 SARS-CoV-2 RNA (RT-PCR) NEGATIVE (Negative) 07/07/23 01:49 Impressions Chest X-Ray 07/07/23 02:00 IMPRESSION: Mild diffuse increased interstitial markings appears to be chronic. There is no focal lung consolidation or pleural effusion. Chest CT 07/07/23 18:54 IMPRESSION: Abnormal CT chest. Diffuse centrilobular and paraseptal emphysema. There are multiple pulmonary ill-defined pulmonary nodules seen in both upper lobes and superior segment both lower lobes There is a large right upper lobe consolidation/mass. The findings are most suspicious for a primary lung lesion with metastatic nodules. Differential diagnoses and consideration is infectious or inflammatory consolidation with nodules.. Abnormal mediastinal adenopathy. No pleural effusion seen. Multiple bilateral healing or/healed rib fractures. Fleischner guidelines were followed. Discharge Plan Discharge Anticipated Discharge Date/Time: 07/09/23 17:04 Patient Disposition: Home Health Service Discharge Diagnosis: Abnormal CT scan of chest Pneumonia Polysubstance abuse Referrals: [facility] [Outside] - 1 Week Walter Aiken MD [Primary Care Provider] - 1 Week Shadi Levy MD [Physician] - 1 Month Discharge Medications: New doxycycline monohydrate 100 mg tablet 100 mg PO BID Qty: 16 0RF cefdinir 300 mg capsule 300 mg PO BID Qty: 16 0RF naloxone 4 mg/actuation spray,non-aerosol 4 mg intranasal Q2M PRN (Reason: opioid overdose) Qty: 2 0RF Rx Instructions: spray 1 dose into ONE nostril; alternate nostrils w each dose until help arrives Continued insulin glargine [Lantus U-100 Insulin] 100 unit/mL solution 25 unit subcut BEDTIME gabapentin 800 mg tablet 1 tab PO TID baclofen 10 mg tablet 1 tab PO TID pantoprazole 40 mg tablet,delayed release (DR/EC) 1 tab PO DAILY@0630 ferrous sulfate [FeroSul] 325 mg (65 mg iron) tablet 325 mg PO DAILY metformin 1,000 mg tablet 1 tab PO BID docusate sodium 100 mg capsule 1 cap PO BEDTIME PRN (Reason: constipation) fluoxetine 20 mg capsule 2 cap PO DAILY Tradjenta 5 mg tablet 1 tab PO DAILY methadone [Methadone Intensol] 10 mg/mL Concentrate 115 mg PO DAILY ibuprofen 600 mg tablet 600 mg PO TID mirtazapine 7.5 mg tablet 7.5 mg PO BEDTIME Discharge Orders: Discharge Order (Routine); Ordered 07/09/23 Ordered By: Gladys Gallegos Diet: Diabetic diet Activity on Discharge: As tolerated Stand Alone Forms: Patient Portal Discharge page Care Plan Goals: Lung health [facility] Concerns: Abnormal CT scan of chest Pneumonia Polysubstance abuse Plan of Treatment: Take antibiotics as prescribed for 8 days Please follow up with Dr Levy from [facility] Pulmonology in 4 weeks to obtain repeat CT of the lung to rule out cancer. Please avoid all substance abuse. Please follow up with your primary care doctor within 1 week. Return to the hospital if you experience recurrent or worsening symptoms. Assessment: See Discharge Summary.
[2023-07-09] MEDS: cefTRIAXone sodium 1 GM in 0.9 % Sodium Chloride 50 ML IV (16:18)
== END 2023-07-09 18:20 | disposition home or self-care (01) | DRG 917 ==
LOC: HO.ED 16:25 → HO.EDOVER 19:05 → HO.IMC 07-08 05:09
PROVIDERS: Internal Medicine; Admitting Provider Family Medicine; Emergency Provider Emergency Medicine; PCP Internal Medicine; Visit Provider Family Medicine
DX: T40.2X1A Poisoning by other opioids, accidental (unintentional), initial encounter (principal); G92.8 Other toxic encephalopathy; J69.0 Pneumonitis due to inhalation of food and vomit; J96.01 Acute respiratory failure with hypoxia; F11.20 Opioid dependence, uncomplicated; C34.11 Malignant neoplasm of upper lobe, right bronchus or lung; E11.65 Type 2 diabetes mellitus with hyperglycemia; G89.29 Other chronic pain; F39 Unspecified mood [affective] disorder; E83.42 Hypomagnesemia; F17.210 Nicotine dependence, cigarettes, uncomplicated; Z71.6 Tobacco abuse counseling; Z20.822 Contact with and (suspected) exposure to COVID-19; Z88.0 Allergy status to penicillin; Z79.4 Long term (current) use of insulin; Z79.899 Other long term (current) drug therapy
CPT/HCPCS: 0241U; 36415; 71045; 71250; 80048; 80053; 80307; 81001; 82803; 82947; 83605; 83735; 83880; 84145; 84484; 85025; 85027; 86140; 86704; 86706; 86803; 87040; 87340; 87389; 87449; 87899; 93005; 94640; 97162; 99285; J0456; J0696; J1650; J1836; J2270; J2405; J3475

== ENCOUNTER → 2023-07-07 02:24 | Outpatient (BNV) | payer MEDICARE, MEDICAID, SELFPAY | PROVIDERS: Emergency Provider Emergency Medicine; Visit Provider Family Medicine | DX: R93.89 Abnormal findings on diagnostic imaging of other specified body structures (principal); J18.9 Pneumonia, unspecified organism; F19.10 Other psychoactive substance abuse, uncomplicated; J96.01 Acute respiratory failure with hypoxia; T50.901A Poisoning by unspecified drugs, medicaments and biological substances, accidental (unintentional), initial encounter; G92.8 Other toxic encephalopathy | CPT/HCPCS: 99223; 99232; 99239; G0180 ==

== ENCOUNTER → 2023-07-07 14:23 | Outpatient (BNV) | payer MEDICARE, MEDICAID, SELFPAY | PROVIDERS: Admitting Provider Family Medicine; Emergency Provider Emergency Medicine; PCP Internal Medicine; Visit Provider Internal Medicine Cardiovascular Disease | DX: R06.02 Shortness of breath (principal) | CPT/HCPCS: 93010 ==

== ENCOUNTER → 2023-07-07 18:55 | Outpatient (BNV) | payer MEDICARE, MEDICAID, SELFPAY | PROVIDERS: Admitting Provider Family Medicine; Emergency Provider Emergency Medicine; Visit Provider Internal Medicine Pulmonary Disease | DX: R93.89 Abnormal findings on diagnostic imaging of other specified body structures (principal); J18.9 Pneumonia, unspecified organism | CPT/HCPCS: 99232 ==

== ENCOUNTER 2023-07-30 22:15 | Emergency (ER) | payer MEDICARE, MEDICAID, SELFPAY ==
[2023-07-30 22:24] VITALS: BP 112/59; BP 136/90; PULSE 120; PULSE 94; RESP 16; TEMP 36.7; O2SAT 95; O2SAT 99; BMI 29.6
--- NOTE | 2023-07-30 22:29 | ED.OVERDOSE ---
HPI - Overdose General Chief Complaint: Overdose Stated Complaint: Opioid OD, IV nitro given Time Seen by Provider: 07/30/23 22:22 Source: EMS Mode of arrival: EMS Limitations: altered mental status History of Present Illness HPI Narrative: Patient comes to the emergency room via EMS. Earlier today, patient was altered at home, family called 911, they initially thought that patient had a glucose problem since she acts abnormal when her glucose is high or low. When EMS arrived, patient's glucose 220. Patient was snoring, unresponsive, pinpoint pupils. Patient received Narcan by paramedics. Patient woke up immediately yelling the paramedics were giving her Narcan. Related Data Home Medications Medication Instructions Recorded Confirmed baclofen 10 mg tablet 1 tab PO TID 04/19/22 07/07/23 docusate sodium 100 mg capsule 1 cap PO BEDTIME PRN constipation 04/19/22 07/07/23 ferrous sulfate 325 mg (65 mg 325 mg PO DAILY 04/19/22 07/07/23 iron) tablet (FeroSul) fluoxetine 20 mg capsule 2 cap PO DAILY 04/19/22 07/07/23 gabapentin 800 mg tablet 1 tab PO TID 04/19/22 07/07/23 insulin glargine 100 unit/mL 25 unit subcut BEDTIME 04/19/22 07/07/23 subcutaneous solution (Lantus U-100 Insulin) linagliptin 5 mg tablet (Tradjenta) 1 tab PO DAILY 04/19/22 07/07/23 metformin 1,000 mg tablet 1 tab PO BID 04/19/22 07/07/23 pantoprazole 40 mg tablet,delayed 1 tab PO DAILY@0630 04/19/22 07/07/23 release methadone 10 mg/mL oral 115 mg PO DAILY 04/21/22 07/08/23 concentrate (Methadone Intensol) ibuprofen 600 mg tablet 600 mg PO TID 07/07/23 07/07/23 mirtazapine 7.5 mg tablet 7.5 mg PO BEDTIME 07/07/23 07/07/23 Previous Rx's Medication Instructions Recorded cefdinir 300 mg capsule 300 mg PO BID #16 caps 07/09/23 doxycycline monohydrate 100 mg 100 mg PO BID #16 tabs 07/09/23 tablet naloxone 4 mg/actuation nasal spray 4 mg intranasal Q2M PRN opioid 07/09/23 overdose #2 ea Allergies Allergy/AdvReac Type Severity Reaction Status Date / Time Penicillins Allergy Mild HIVES Verified 12/03/20 11:11 Review of Systems Review of Systems: Yes Other (Intoxicated/impaired ) [facility] Past Medical History Medical History Positive blood culture Sepsis Acute kidney injury Acute respiratory failure Acute respiratory alkalosis Lactic acidosis Acute encephalopathy Rhabdomyolysis Opiate use Diabetes HTN (hypertension) Social History Social History Household Members: Family Housing: Apartment Do you presently have visiting nurse or other home services: No Unable to assess alcohol history related to: Unable to respond and Unknown Alcohol intake: unknown Comment: potential for elopment Patient Tobacco Use Status: Current everyday Tobacco user Tobacco use type: Cigarette e-Cigarette/Vaping Use: Never Used Substance Use Type: Heroin Advance Directives: Yes Advance Directives on File: Yes Advance Directives Date on File: 07/10/23 service: No Current occupational status: disabled Physical Exam Vital Signs: Vital Signs: Last Vital Signs Temp 98.0 F 07/30/23 23:39 Pulse 85 07/30/23 23:39 Resp 16 07/30/23 23:39 BP 96/51 L 07/30/23 23:39 Pulse Ox 94 07/30/23 23:39 O2 Del Method Room Air 07/30/23 23:39 BMI result Body Mass Index 29.6 Const: Other: Appearance: Alert. Seems Very uncomfortable, screaming Eyes: Pupils equal, round and reactive to light. ENT: Pharynx normal. Neck: Normal inspection. Neck supple. No lymph nodes noted. No crepitus CVS: Normal heart rate and rhythm. Pulses normal. Normal S1 and S2 Respiratory: No respiratory distress. Breath sounds normal. No Wheezing. No rales Abdomen: Soft and nontender. No rigidity. No distention. Skin: Skin warm and dry. Normal skin color. Normal skin turgor. Extremities: No lower extremity edema. No Lacerations. No Rash Neuro: Intoxicated versus drug impairment, No slurred speech. CN 2 through 12 grossly intact Psych: anxious Course Course Course Narrative: -patient looks uncomfortable, seems that patient is withdrawing, Narcan was given by the paramedics. -all of patient's labs pending -patient states that she can not urinate, bladder scan pending Medical Decision Making Medical Decision Making [facility] Narrative: -my interpretation of labs: Hematology at baseline, chronic anemia, patient has acute kidney injury, likely secondary to dehydration, patient getting IV fluids. Patient already received a L of normal saline by paramedics thinks she had hypotension secondary to opiate use. ETOH level negative -chemistry will be repeated around 230 in the morning after IV fluids to reassess for the creatinine level -patient has not given urine yet. Patient states that she can not urinate. Discussed with the patient's nurse to get a bladder scan. At this time, patient has 500 cc of urine in the bladder. Patient is completely asleep -discussed with the patient's nurse that when the patient wakes up we will encourage her to urinate and then check a bladder scan. If patient is retaining urine secondary to opiate use, patient may need a Babb catheter -patient's oxygen saturation drops to the mid 80s on room air due to opiate abuse, patient on 2 L nasal cannula saturating in the high 90s. -sign out given to Dr. Jackson Differential Diagnosis Differential Diagnoses: The differential diagnosis associated with the presentation includes (Polysubstance abuse, anxiety, depression, alcohol intoxication) Admission/Observation Consideration of admission/observation: Escalation of care including admission/observation considered (Patient has acute kidney injury, admission being considered. Also, oxygen saturation drops quite a bit. Now on 2 L nasal cannula.) Lab Data [facility] Lab Attestation statement: I reviewed the patient's lab results. 07/30/23 23:07 07/30/23 23:07 Labs: Lab Results 07/30/23 Range/Units 23:07 WBC 6.8 (4.8-10.8) X10*3/uL RBC 3.93 L (4.20-5.50) X10*6/uL Hgb 10.8 L (12.0-16.0) g/dl Hct 34.1 L (37.0-47.0) % MCV 86.8 (80.0-98.0) fL MCH 27.5 (27.0-33.0) pg MCHC 31.7 (31.0-35.0) g/dl RDW 16.4 H (11.0-16.0) % Plt Count 208 D (160-400) X10*3/uL MPV 11.6 (9.4-12.3) fL Immature Gran % (Auto) 0.4 (0.0-0.4) % Neut % (Auto) 78.6 H (45-73) % Lymph % (Auto) 13.9 L (20-40) % [place] % (Auto) 6.7 (2-11) % Eos % (Auto) 0.1 (0-4) % Baso % (Auto) 0.3 (0-2) % Lymph # (Auto) 0.9 L (1.2-4.9) X10*3/uL [place] # (Auto) 0.5 (0.1-1.2) X10*3/uL Eos # (Auto) 0.0 (0.0-0.4) X10*3/uL Baso # (Auto) 0.0 (0.0-0.2) X10*3/uL Abs Immat Gran (auto) 0.03 (0.00-0.03) X10*3/uL Absolute Neuts (auto) 5.3 (2.0-8.3) x10*3/uL Absolute Nucleated RBC 0.000 (0.0-0.012) X10*3/uL Nucleated RBC % (auto) 0.0 (0.0-0.2) /100WBC Sodium 137 (135-145) mmol/L Potassium 4.4 (3.3-5.1) mmol/L Chloride 107 (96-108) mmol/L Carbon Dioxide 18 L (22-29) mmol/L Anion Gap 16 (12-20) BUN 49 H (9-16) mg/dL Creatinine 1.82 H (0.5-1.4) mg/dL Estim Creat Clear Calc 26.1 Estimated GFR 29 Random Glucose 226 H (60-115) mg/dL Calcium 8.4 D (8.4-10.2) mg/dL Total Bilirubin 0.2 (0.0-1.0) mg/dL Direct Bilirubin < 0.2 (0.0-0.5) mg/dL AST 21 (5-31) U/L ALT 12 (0-31) U/L Alkaline Phosphatase 88 (39-117) U/L Total Protein 7.4 (6.5-8.0) g/dL Albumin 3.0 L (3.5-5.0) g/dL Ethyl Alcohol < 10 mg/dL Critical Care Time Critical Care Time Critical Care Time: Yes Total Critical Care Time: 60 Attestation: I have personally provided critical care time. Time includes review of lab data, radiology results, discussion with consultants, and monitoring for potential decompensation. Intervention performed as documented. Discharge Plan Discharge Clinical Impression: Polysubstance abuse, Overdose, PAPO (acute kidney injury) Patient Disposition: Still a Patient Prescriptions: No Action insulin glargine [Lantus U-100 Insulin] 100 unit/mL solution 25 unit subcut BEDTIME gabapentin 800 mg tablet 1 tab PO TID baclofen 10 mg tablet 1 tab PO TID pantoprazole 40 mg tablet,delayed release (DR/EC) 1 tab PO DAILY@0630 ferrous sulfate [FeroSul] 325 mg (65 mg iron) tablet 325 mg PO DAILY metformin 1,000 mg tablet 1 tab PO BID docusate sodium 100 mg capsule 1 cap PO BEDTIME PRN (Reason: constipation) fluoxetine 20 mg capsule 2 cap PO DAILY Tradjenta 5 mg tablet 1 tab PO DAILY methadone [Methadone Intensol] 10 mg/mL Concentrate 115 mg PO DAILY ibuprofen 600 mg tablet 600 mg PO TID mirtazapine 7.5 mg tablet 7.5 mg PO BEDTIME doxycycline monohydrate 100 mg tablet 100 mg PO BID Qty: 16 0RF cefdinir 300 mg capsule 300 mg PO BID Qty: 16 0RF naloxone 4 mg/actuation spray,non-aerosol 4 mg intranasal Q2M PRN (Reason: opioid overdose) Qty: 2 0RF Rx Instructions: spray 1 dose into ONE nostril; alternate nostrils w each dose until help arrives
[2023-07-30 23:01] VITALS: BP 111/56; PULSE 96; RESP 16; TEMP 36.8; O2SAT 97
[2023-07-30 23:10] LABS: MANUAL DIFF FLAG NO
[2023-07-30 23:14] LABS: Basophils Percent Auto 0.3 % (0-2); Eosinophils Percent Auto 0.1 % (0-4); Hematocrit 34.1 % (37.0-47.0); Hemoglobin 10.8 g/dl (12.0-16.0); Imm Gran Abs Auto 0.03 X10*3/uL (0.00-0.03); Imm Gran Pct Auto 0.4 % (0.0-0.4); Lymphocytes Absolute Auto 0.9 X10*3/uL (1.2-4.9); Lymphocytes Percent Auto 13.9 % (20-40); Mean Corpuscular HGB Conc 31.7 g/dl (31.0-35.0); Mean Corpuscular Hemoglobin 27.5 pg (27.0-33.0); Mean Corpuscular Volume 86.8 fL (80.0-98.0); Mean Platelet Volume 11.6 fL (9.4-12.3); Monocytes Absolute Auto 0.5 X10*3/uL (0.1-1.2); Monocytes Percent Auto 6.7 % (2-11); Neutrophils Absolute Auto 5.3 x10*3/uL (2.0-8.3); Neutrophils Percent Auto 78.6 % (45-73); Platelet Count 208 X10*3/uL (160-400); Red Blood Count 3.93 X10*6/uL (4.20-5.50); Red Cell Distribution Width 16.4 % (11.0-16.0); White Blood Count 6.8 X10*3/uL (4.8-10.8)
--- NOTE | 2023-07-30 23:17 | MHC.EDTECH ---
Patient was biba from home ,Patient was ambulated to bathroom ,void 200 ml ,Patient was change into green gown ,,vitals taken and blood drawn and sent to lab , ,Patient drank sips of water and fell asleep ,Patient is hooked up to ekg monitor .
[2023-07-30 23:23] LABS: Ethanol < 10 mg/dL
[2023-07-30 23:25] LABS: Alanine Aminotransferase 12 U/L (0-31); Alkaline Phosphatase 88 U/L (39-117); Anion Gap 16 (12-20); Aspartate Amino Transferase 21 U/L (5-31); Bilirubin Direct < 0.2 mg/dL (0.0-0.5); Bilirubin Total 0.2 mg/dL (0.0-1.0); Blood Urea Nitrogen 49 mg/dL (9-16); Calcium 8.4 mg/dL (8.4-10.2); Carbon Dioxide 18 mmol/L (22-29); Chloride 107 mmol/L (96-108); Creatinine Clr Calc Pharmacy 26.1; Estimated Glomerular Filt Rate 29; Glucose Random 226 mg/dL (60-115); Potassium 4.4 mmol/L (3.3-5.1); Sodium 137 mmol/L (135-145); Total Protein 7.4 g/dL (6.5-8.0)
[2023-07-30 23:39] VITALS: BP 96/51; PULSE 85; RESP 16; TEMP 36.7; O2SAT 94
--- NOTE | 2023-07-30 23:43 | MHC.EDTECH ---
PATIENT VITALS TAKEN ,PATIENT BELONGING ARE LOCKED UP IN DCON .
--- NOTE | 2023-07-30 23:51 | PC.NURSE ---
Pt o2 sat dropping down to 87% on room air while sleeping.Discussed wuth . Verbal order for o2. Applied 2L NC O2 sat improved to 94-96%
[2023-07-31] VITALS (9 sets, daily range): BP systolic 121–142; BP diastolic 62–78; PULSE 63–78; RESP 14–20; TEMP 36.1–36.7; O2SAT 92–100
[2023-07-31] MEDS: 0.9 % Sodium Chloride 1,000 ML 999 ML IVCONT (01:15)
--- NOTE | 2023-07-31 02:58 | MHC.EDTECH ---
Patient repeated bmp drawn after fluids was finish and sent to lab ,Pt still sleeping ,but rousable ,Pt continue to be hooked up to lead miner ,vitals are stable ,no apparent distress noted
[2023-07-31 03:14] LABS: Anion Gap 13 (12-20); Blood Urea Nitrogen 49 mg/dL (9-16); Calcium 7.9 mg/dL (8.4-10.2); Carbon Dioxide 21 mmol/L (22-29); Chloride 110 mmol/L (96-108); Creatinine Clr Calc Pharmacy 34.2; Estimated Glomerular Filt Rate 39; Glucose Random 172 mg/dL (60-115); Potassium 4.6 mmol/L (3.3-5.1); Sodium 139 mmol/L (135-145)
[2023-07-31 06:31] LABS: Amphetamine Screen Urine Not Detected (Not Detect); Barbiturates, Urine Not Detected (Not Detect); Benzodiazepines Screen Urine Not Detected (Not Detect); Cannabinoid Screen Urine Not Detected (Not Detect); Cocaine Screen Urine POSITIVE (Not Detect); Fentanyl, urine POSITIVE (Not Detect); Opiate Screen Urine POSITIVE (Not Detect); Phencyclidine Screen Urine Not Detected (Not Detect)
--- NOTE | 2023-07-31 06:43 | PC.NURSE ---
Pt resting in room arousable to sternal rub overnight. Pt awake this am, able to get up to commode. Pt alert to self, unaware of how she got here or what time/day it was. Pt denies any substance use. urine tox positive for fentanyl, opiates and cocaine. PT refusing oxygen, sats 93% at this time. Pt requesting food and drinks which were provided. Pt back to bed. Plan of care ogoing.
--- NOTE | 2023-07-31 07:35 | PC.NURSE ---
pt sleeping, wakes to verbal stimulus, playground monitor sinus hank 60s, vss, prior to waking, pt had notable sleep apnea, lungs have rhonchi-clear with cough, denies pain/discomfort at this time, call slater within reach, will continue to monitor.
[2023-07-31 07:56] LABS: Glucose, Whole Blood 110 mg/dL (60-115)
--- NOTE | 2023-07-31 12:50 | HE.PHANOTE ---
re methadone patient receives methadone from [facility] ([phone]) patient gets 115 mg and given 6 take homes, last dosed 07/28/23 @0720a
--- NOTE | 2023-07-31 13:23 | PC.NURSE ---
pt a&ox3, ate lunch, pt refused tin recovery worker, patient to discharge home.
--- NOTE | 2023-07-31 16:33 | HO.SUDE ---
Pt declined SUDE.
== END 2023-07-31 13:27 | disposition home or self-care (01) ==
PROVIDERS: Emergency Provider Emergency Medicine
DX: T40.2X1A Poisoning by other opioids, accidental (unintentional), initial encounter (principal); Y92.9 Unspecified place or not applicable; N17.9 Acute kidney failure, unspecified; R11.2 Nausea with vomiting, unspecified; F17.200 Nicotine dependence, unspecified, uncomplicated; Z79.899 Other long term (current) drug therapy
CPT/HCPCS: 36415; 51798; 80048; 80076; 80307; 82947; 85025; 96360; 96361; 99285

== ENCOUNTER 2023-09-02 14:23 | Outpatient (AMB) | payer MEDICARE, MEDICAID, SELFPAY ==
--- NOTE | 2023-09-02 13:44 | MHC.OFFVIS ---
Intake Vital Signs 09/02/23 14:54 Height 4 ft 11 in Weight 140 lb BMI 28.3 BP 140/68 H Blood Pressure Location Rt brachial Position Sitting Pulse 87 Pulse Source Pulse Oximeter Pulse Oximetry (%) 95 Intake Visit Reasons: abnormal chest ct Coat Presser Required: No Breeding Manager: Breeding Manager offered & declined Accompanied by: Son Allergies Penicillins Allergy (Mild, Verified 09/02/23 14:58) HIVES Medication List - Last Reconciled 09/02/23 by Keshia Jensen LPN baclofen 1 tab PO TID cefdinir 300 mg PO BID docusate sodium 1 cap PO BEDTIME PRN ferrous sulfate (FeroSul) 325 mg PO DAILY fluoxetine 2 caps PO DAILY gabapentin 1 tab PO TID ibuprofen 600 mg PO TID insulin glargine (Lantus U-100 Insulin) 25 units subcut BEDTIME linagliptin (Tradjenta) 1 tab PO DAILY metformin 1 tab PO BID methadone (Methadone Intensol) 115 mg PO DAILY mirtazapine 7.5 mg PO BEDTIME naloxone 4 mg/actuation 4 mg intranasal Q2M PRN pantoprazole 1 tab PO DAILY@[address] HPI Details Blank is a pleasant 57-year-old female, current smoker with 30+ pack-year history, with underlying history polysubstance abuse on methadone, DMII, and HTN. She was referred by a [facility] ED for pulmonary evaluation. She was admitted to [facility] on 07/07/2023 with dyspnea and tox screen positive for opioids, cocaine, and fentanyl. RSV/Covid/flu negative. Chest CT revealed masslike consolidation RUL suspicious for primary lung lesions with metastatic nodules versus pneumonia. She was started on empiric treatment for pneumonia with improvements. Recommendations were placed for follow-up chest CT in 6-8 weeks. She currently denies any respiratory symptoms. She denies any prior history of respiratory conditions. She denies any family history of respiratory conditions. She denies any occupational exposures. When questioned about prior substance use, patient denied. She denies any allergies. [facility] Medical History Positive blood culture Sepsis Acute kidney injury Acute respiratory failure Acute respiratory alkalosis Lactic acidosis Acute encephalopathy Rhabdomyolysis Opiate use Diabetes HTN (hypertension) Social History (Updated 09/02/23 @ 15:01 by Keshia Jensen LPN) Household Members: Family Housing: Apartment Do you presently have visiting nurse or other home services: No Unable to assess alcohol history related to: Unable to respond and Unknown Alcohol intake: never Comment: potential for elopment Patient Tobacco Use Status: Current everyday Tobacco user Tobacco use type: Cigarette Cigarettes Per Day: 5 e-Cigarette/Vaping Use: Never Used Substance Use Type: Heroin Advance Directives Date on File: 07/10/23 service: No Current occupational status: disabled Review of Systems Const Denies chills, Denies excessive sweating, Denies fever(s), Denies headache(s) and Denies night sweats Eyes Denies dry eyes, Denies irritation and Denies itchy eyes ENT Reports Normal hearing present, Denies headache(s), Denies nasal congestion, Denies nasal discharge, Denies post nasal drip and Denies sore throat Card Denies chest pain, Denies chest pain at rest, Denies chest pain with activity, Denies claudication, Denies leg edema, Denies dyspnea, Denies dyspnea on exertion, Denies orthopnea and Denies paroxysmal nocturnal dyspnea Resp Denies chest congestion, Denies cough, Denies excessive phlegm production, Denies pain on inspiration, Denies pain with cough, Denies dyspnea, Denies dyspnea on exertion, Denies stridor and Denies wheezing Musc Denies myalgias Neuro Reports Normal hearing present and Denies headache(s) Endo Denies excessive sweating Terry/Lymph Denies lymphadenopathy Aller/Immun Denies itchy eyes, Denies seasonal rhinorrhea and Denies wheezing Physical Exam Vital Signs: Last Vital Signs Pulse 87 09/02/23 14:54 BP 140/68 H 09/02/23 14:54 Pulse Ox 95 09/02/23 14:54 BMI result Body Mass Index 28.3 Const General: cooperative, healthy appearing, comfortable, no acute distress and well developed Orientation/consciousness: patient oriented x3 Limitations: no limitations HEENT Head: Yes normal to inspection, Yes normocephalic and Yes atraumatic Ears: hearing grossly normal bilaterally and external ears normal Eyes General: appearance normal, both eyes and all related structures Eyelids: Yes eyelids normal Sclerae: sclerae normal EOM: EOMs intact bilaterally Neck Neck: Yes normal visual inspection and Yes no lymphadenopathy Lymphatic: no lymphadenopathy noted Chest Chest palpation & inspection: normal inspection of the chest Resp Effort & Inspection: normal respiratory effort, able to speak in complete sentences, no audible wheezes, no cough, no stridor, not tachypneic, no tripod positioning and no use of accessory muscles Auscultation: clear to auscultation bilaterally Cardio Jugular venous distension: no JVD Rate: regular rate Rhythm: regular rhythm Skin Other: warm, dry General skin exam: no rashes or lesions noted Neuro General: patient oriented x3 Cranial nerves: Yes Normal hearing present Cognition (Neuro): normal cognition Gait exam (Neuro): Normal gait present Extrem General: Yes normal to inspection, Yes capillary refill normal, Yes no clubbing, cyanosis or edema and Yes no pedal edema Psych Appearance: grossly normal and well kempt Speech and movement: Normal speech and movement present and Clear speech present Affect: normal affect Attitude: cooperative Thought process: Normal thought process present Thought content: Normal thought content present Insight: Good insight present (Psych) Judgement: Good judgement present (Psych) Results Reviewed Results Reviewed: [place] [id number] CT Scan Report Signed Patient: Blank Rosas I MR#: [id number] : 1965 Acct:[id number] Age/Sex: 57 / F ADM Date: 07/07/23 Loc: [facility]: Gladys Gallegos MD Ordering Physician: Gladys Gallegos MD Date of Service: 07/07/23 Procedure(s): CT chest wo IV con Accession Number(s): [id number] cc: Gladys Gallegos MD; Physician,Unknown ~ EXAMINATION: CT CHEST WITHOUT CONTRAST CLINICAL INFORMATION: Source of infection COMPARISON: None available. TECHNIQUE: Multidetector volumetric CT imaging of the chest was done. Axial MIP volume rendering provided. Sagittal and coronal reformatted images were obtained. This CT examination was performed using dose optimization techniques as appropriate, variously including the following: *Automated exposure control *Adjustment of mA and/or kV according to patient size (this includes techniques or standardized protocols for targeted exams where dose is matched to indication/reason for exam; i.e. extremities or head) *Use of iterative reconstruction technique DLP: 302 mGy-cm FINDINGS: KITCHEN BATH DESIGNER: Unremarkable chest exam. LUNGS: There is diffuse emphysematous lungs with diffuse multiple patchy nodular opacities seen in both upper lobes and superior segment lower lobes. There is a large consolidation/mass posteriorly in the right upper lobe. Rest of the lungs are expanded and clear. Mild atelectatic changes are seen throughout lingula, left lower lobe and right middle lobe. MEDIASTINUM: Thyroid lobes are symmetric and normal. The central trachea and the bronchi are widely patent. Significant abnormal pretracheal, precarinal, left para-aortic and right hilar lymphadenopathy is noted. No pericardial effusion seen. Heart size is normal. CORONARY ARTERY CALCIFICATION: There is mild coronary artery calcifications. PLEURA: There is no pleural effusion. No pleural mass or thickening. AXILLA: Small shotty lymph nodes are seen in the axilla bilaterally. UPPER ABDOMEN: Visualized liver, spleen and pancreas unremarkable. Gallbladder has been surgically removed. OSSEOUS STRUCTURES: There are multiple bilateral healed/healing right rib fractures. Moderate ventral spondylosis in mid and lower dorsal spine. CT/CT chest wo IV con IMPRESSION: Abnormal CT chest. Diffuse centrilobular and paraseptal emphysema. There are multiple pulmonary ill-defined pulmonary nodules seen in both upper lobes and superior segment both lower lobes There is a large right upper lobe consolidation/mass. The findings are most suspicious for a primary lung lesion with metastatic nodules. Differential diagnoses and consideration is infectious or inflammatory consolidation with nodules.. Abnormal mediastinal adenopathy. No pleural effusion seen. Multiple bilateral healing or/healed rib fractures. Fleischner guidelines were followed. Assessment & Plan Assessment & Plan (1) Abnormal CT scan, chest: Code(s): R93.89 - Abnormal findings on diagnostic imaging of other specified body structures (2) Pneumonia: Code(s): J18.9 - Pneumonia, unspecified organism Plan Blank presents after recent hospital admission revealing abnormal chest CT suspicious for infectious etiologies versus malignancy. Will send for chest CT to assess for resolution as patient was treated empirically for pneumonia. At this time, patient denies any respiratory symptoms, she is aware if symptoms develop to call the office. All questions were answered and patient is in agreement of plan will follow-up to review chest CT results. Coding Level of Care Code New Pt Level 3 (33793) Diagnoses Abnormal CT scan, chest R93.89 Pneumonia J18.9
[2023-09-02 14:54] VITALS: BP 140/68; PULSE 87; O2SAT 95; BMI 28.3
== END 2023-09-02 15:19 | disposition home or self-care (01) ==
PROVIDERS: PCP Internal Medicine; Referring Provider Emergency Medicine; Visit Provider Nurse Practitioner Family
DX: R93.89 Abnormal findings on diagnostic imaging of other specified body structures (principal); J18.9 Pneumonia, unspecified organism
CPT/HCPCS: 99203

== ENCOUNTER → 2023-09-02 14:23 | Outpatient (BNVA) | payer MEDICARE, MEDICAID, SELFPAY | PROVIDERS: PCP Internal Medicine; Referring Provider Emergency Medicine; Visit Provider Nurse Practitioner Family | DX: R93.89 Abnormal findings on diagnostic imaging of other specified body structures (principal); J18.9 Pneumonia, unspecified organism | CPT/HCPCS: 99202 ==

== ENCOUNTER 2023-09-23 21:39 | Emergency (ER) | payer MEDICARE, MEDICAID, SELFPAY ==
[2023-09-23 21:51] VITALS: BP 129/60; BP 162/72; PULSE 72; PULSE 76; RESP 15; TEMP 36.9; O2SAT 95; O2SAT 96; BMI 24.3
--- NOTE | 2023-09-23 21:56 | PC.NURSE ---
pt christen from home after family members called PD on pt for increased lethargy and dizziness. upon arrival pt lethargic and responds to name. pt reports dizziness and lethargy with increased nausea. pt reports using heroin 3 days ago and denies use today. pt pupils pinpoint at this time. at bedside to discuss pt care.
--- NOTE | 2023-09-23 21:57 | ECG_ITS ---
Test Reason : OD Blood Pressure : / mmHG Vent. Rate : 067 BPM Atrial Rate : 067 BPM P-R Int : 136 ms QRS Dur : 082 ms QT Int : 446 ms P-R-T Axes : 060 057 057 degrees QTc Int : 471 ms Normal sinus rhythm Normal ECG When compared with ECG of 07-JUL-2023 15:06, No significant change was found Referred By: Alana Garcia Electronically Signed By:YAMILETH SCHMITT
--- NOTE | 2023-09-23 21:58 | ED.GENADULT ---
HPI - General Adult General Chief complaint: General Medical Stated complaint: DIZZY, N/V PT DOSING OFF DURING TRANSPORT Time Seen by Provider: 09/23/23 21:48 History of Present Illness HPI narrative: Patient is a 59-year-old female family called PD because of patient having increasing lethargy. Patient told EMS that she used heroin 3 days ago. Family thinks he might have used heroin today. Patient's report weakness dizziness very lethargic unable to answer questions. Related Data Home Medications Medication Instructions Recorded Confirmed baclofen 10 mg tablet 1 tab PO TID 04/19/22 09/02/23 docusate sodium 100 mg capsule 1 cap PO BEDTIME PRN constipation 04/19/22 09/02/23 ferrous sulfate 325 mg (65 mg 325 mg PO DAILY 04/19/22 09/02/23 iron) tablet (FeroSul) fluoxetine 20 mg capsule 2 cap PO DAILY 04/19/22 09/02/23 gabapentin 800 mg tablet 1 tab PO TID 04/19/22 09/02/23 insulin glargine 100 unit/mL 25 unit subcut BEDTIME 04/19/22 09/02/23 subcutaneous solution (Lantus U-100 Insulin) linagliptin 5 mg tablet (Tradjenta) 1 tab PO DAILY 04/19/22 09/02/23 metformin 1,000 mg tablet 1 tab PO BID 04/19/22 09/02/23 pantoprazole 40 mg tablet,delayed 1 tab PO DAILY@0630 04/19/22 09/02/23 release methadone 10 mg/mL oral 115 mg PO DAILY 04/21/22 09/02/23 concentrate (Methadone Intensol) ibuprofen 600 mg tablet 600 mg PO TID 07/07/23 09/02/23 mirtazapine 7.5 mg tablet 7.5 mg PO BEDTIME 07/07/23 09/02/23 Previous Rx's Medication Instructions Recorded cefdinir 300 mg capsule 300 mg PO BID #16 caps 07/09/23 naloxone 4 mg/actuation nasal spray 4 mg intranasal Q2M PRN opioid 07/09/23 overdose #2 ea Allergies Allergy/AdvReac Type Severity Reaction Status Date / Time Penicillins Allergy Mild HIVES Verified 09/23/23 21:51 Review of Systems Review of Systems: Unable to obtain review of systems secondary to patient's condition [facility] Past Medical History Medical History Positive blood culture Sepsis Acute kidney injury Acute respiratory failure Acute respiratory alkalosis Lactic acidosis Acute encephalopathy Rhabdomyolysis Opiate use Diabetes HTN (hypertension) Social History Social History Household Members: Family Housing: Apartment Do you presently have visiting nurse or other home services: No Unable to assess alcohol history related to: Unable to respond and Unknown Alcohol intake: never Comment: potential for elopment Patient Tobacco Use Status: Current everyday Tobacco user Tobacco use type: Cigarette Cigarettes Per Day: 5 e-Cigarette/Vaping Use: Never Used Substance Use Type: Heroin Advance Directives: Yes Advance Directives on File: Yes Advance Directives Date on File: 07/10/23 service: No Current occupational status: disabled Physical Exam ED Vital Signs: Vital Signs - 24 hr 09/23/23 21:51 Temperature 98.5 F Pulse Rate 76 Respiratory Rate 15 Blood Pressure 129/60 Pulse Oximetry 95 Oxygen Delivery Method Room Air BMI result Body Mass Index 24.3 Appearance: Lethargic, grimaces to pain No acute distress. Eyes: Pupils are pinpoint round and reactive to light. ENT: Pharynx normal. Neck: Normal inspection. Neck supple. No lymph nodes noted. No crepitus CVS: Normal heart rate and rhythm. Pulses normal. Normal S1 and S2 Respiratory: No respiratory distress. Breath sounds normal. No Wheezing. No rales Abdomen: Soft and nontender. No rigidity. No distention. good BS x4 Skin: Skin warm and dry. Normal skin color. Normal skin turgor. Extremities: No lower extremity edema. Neurovascular intact to all extremities. No Lacerations. No Rash Neuro: Extremely lethargic grimaces to pain Medications Administered Discontinued Medications Generic Name Dose Route Start Last Admin Trade Name Freq PRN Reason Stop Dose Admin Sodium Chloride 1,000 mls @ 999 mls/hr 09/23/23 22:00 09/23/23 22:05 Ns IV 09/23/23 23:00 999 mls/hr .Q1H1M GALILEA Administration Naloxone HCl 2 mg 09/23/23 21:57 09/23/23 22:37 Naloxone Hcl 2 Mg/2 Ml Syringe IVPUSH 09/23/23 21:58 2 mg ONCE ONE Administration Medical Decision Making Medical Decision Making MDM Narrative: Patient's sugar was noted to be 130 there has no evidence for hypoglycemia O2 sats today in the 9% on room air in no distress. Breathing. Patient extremely lethargic with pinpoint pupils. Will get patient's labs do an EKG then give patient has some Narcan with a history of possible narcotic overdose. Patient's electrolytes were done. Slight elevation in creatinine which had happened in the past. Patient's hemoglobin is 10.6 this is proximally baseline. Patient's glucose is 150. My interpretation of patient's EKG showed a sinus rhythm heart rate is 70 IN QRS QTC normal there is no acute ST segment elevation. Patient still very lethargic would not wake up has pinpoint pupil she was given a dose of Narcan which woke her up completely incidentally. Her pupils reversed. Patient monitored in the emergency department. Explained to patient the need to stop using heroin. Patient states understanding. Will contact patient's family to take her home. She is currently in stable condition. Differential Diagnosis Differential Diagnoses: The differential diagnosis associated with the presentation includes Hypoglycemia, intracranial bleed, narcotic abuse Admission/Observation Consideration of admission/observation: Escalation of care including admission/observation considered Lab Data [facility] Lab Attestation statement: I reviewed the patient's lab results. 09/23/23 22:04 09/23/23 22:04 Labs: Lab Results 09/23/23 Range/Units 22:04 WBC 12.5 H (4.8-10.8) X10*3/uL RBC 3.88 L (4.20-5.50) X10*6/uL Hgb 10.6 L (12.0-16.0) g/dl Hct 33.2 L (37.0-47.0) % MCV 85.6 (80.0-98.0) fL MCH 27.3 (27.0-33.0) pg MCHC 31.9 (31.0-35.0) g/dl RDW 16.6 H (11.0-16.0) % Plt Count 322 D (160-400) X10*3/uL MPV 10.7 (9.4-12.3) fL Immature Gran % (Auto) 0.5 H (0.0-0.4) % Neut % (Auto) 84.2 H (45-73) % Lymph % (Auto) 10.8 L (20-40) % [place] % (Auto) 4.2 (2-11) % Eos % (Auto) 0.1 (0-4) % Baso % (Auto) 0.2 (0-2) % Lymph # (Auto) 1.4 (1.2-4.9) X10*3/uL [place] # (Auto) 0.5 (0.1-1.2) X10*3/uL Eos # (Auto) 0.0 (0.0-0.4) X10*3/uL Baso # (Auto) 0.0 (0.0-0.2) X10*3/uL Abs Immat Gran (auto) 0.06 H (0.00-0.03) X10*3/uL Absolute Neuts (auto) 10.6 H (2.0-8.3) x10*3/uL Absolute Nucleated RBC 0.000 (0.0-0.012) X10*3/uL Nucleated RBC % (auto) 0.0 (0.0-0.2) /100WBC Sodium 139 (135-145) mmol/L Potassium 4.4 (3.3-5.1) mmol/L Chloride 107 (96-108) mmol/L Carbon Dioxide 21 L (22-29) mmol/L Anion Gap 15 (12-20) BUN 35 H (9-16) mg/dL Creatinine 1.72 H (0.5-1.4) mg/dL Estim Creat Clear Calc 31.5 Estimated GFR 31 Random Glucose 154 H (60-115) mg/dL Calcium 9.0 D (8.4-10.2) mg/dL Total Bilirubin 0.1 (0.0-1.0) mg/dL Direct Bilirubin < 0.2 (0.0-0.5) mg/dL AST 19 (5-31) U/L ALT 11 (0-31) U/L Alkaline Phosphatase 130 H (39-117) U/L Total Protein 8.3 H (6.5-8.0) g/dL Albumin 3.4 L (3.5-5.0) g/dL Independent Interpretation I performed an independent interpretation of an: EKG (Sinus heart rate is 70 IN QRS QTC within normal limits is no acute ST segment elevation) External Record Review External record reviewed: Inpatient record Social Determinants Patient?s care significantly limited by Social Determinants of Health including: Low income, Alcoholism and drug addiction in family and Unemployment Discharge Plan Discharge Clinical Impression: Polysubstance abuse Patient Disposition: Home, Self-Care Instructions: Polysubstance Abuse (ED) Additional Instructions: Please stop using heroin. Using heroin almost killed you today. Prescriptions: No Action insulin glargine [Lantus U-100 Insulin] 100 unit/mL solution 25 unit subcut BEDTIME gabapentin 800 mg tablet 1 tab PO TID baclofen 10 mg tablet 1 tab PO TID pantoprazole 40 mg tablet,delayed release (DR/EC) 1 tab PO DAILY@0630 ferrous sulfate [FeroSul] 325 mg (65 mg iron) tablet 325 mg PO DAILY metformin 1,000 mg tablet 1 tab PO BID docusate sodium 100 mg capsule 1 cap PO BEDTIME PRN (Reason: constipation) fluoxetine 20 mg capsule 2 cap PO DAILY Tradjenta 5 mg tablet 1 tab PO DAILY methadone [Methadone Intensol] 10 mg/mL Concentrate 115 mg PO DAILY ibuprofen 600 mg tablet 600 mg PO TID mirtazapine 7.5 mg tablet 7.5 mg PO BEDTIME cefdinir 300 mg capsule 300 mg PO BID Qty: 16 0RF naloxone 4 mg/actuation spray,non-aerosol 4 mg intranasal Q2M PRN (Reason: opioid overdose) Qty: 2 0RF Rx Instructions: spray 1 dose into ONE nostril; alternate nostrils w each dose until help arrives Referrals: Physician,Unknown J [Primary Care Provider] - 09/25/23
[2023-09-23] MEDS: 0.9 % Sodium Chloride 1,000 ML 999 ML IV (22:05)
[2023-09-23 22:08] LABS: MANUAL DIFF FLAG NO
[2023-09-23 22:13] LABS: Basophils Percent Auto 0.2 % (0-2); Eosinophils Percent Auto 0.1 % (0-4); Hematocrit 33.2 % (37.0-47.0); Hemoglobin 10.6 g/dl (12.0-16.0); Imm Gran Abs Auto 0.06 X10*3/uL (0.00-0.03); Imm Gran Pct Auto 0.5 % (0.0-0.4); Lymphocytes Absolute Auto 1.4 X10*3/uL (1.2-4.9); Lymphocytes Percent Auto 10.8 % (20-40); Mean Corpuscular HGB Conc 31.9 g/dl (31.0-35.0); Mean Corpuscular Hemoglobin 27.3 pg (27.0-33.0); Mean Corpuscular Volume 85.6 fL (80.0-98.0); Mean Platelet Volume 10.7 fL (9.4-12.3); Monocytes Absolute Auto 0.5 X10*3/uL (0.1-1.2); Monocytes Percent Auto 4.2 % (2-11); Neutrophils Absolute Auto 10.6 x10*3/uL (2.0-8.3); Neutrophils Percent Auto 84.2 % (45-73); Platelet Count 322 X10*3/uL (160-400); Red Blood Count 3.88 X10*6/uL (4.20-5.50); Red Cell Distribution Width 16.6 % (11.0-16.0); White Blood Count 12.5 X10*3/uL (4.8-10.8)
--- NOTE | 2023-09-23 22:18 | PC.NURSE ---
security at bedside to international exchange coordinator pt. pt belongings placed in decon.
[2023-09-23 22:27] LABS: Alanine Aminotransferase 11 U/L (0-31); Albumin Level 3.4 g/dL (3.5-5.0); Alkaline Phosphatase 130 U/L (39-117); Anion Gap 15 (12-20); Aspartate Amino Transferase 19 U/L (5-31); Bilirubin Direct < 0.2 mg/dL (0.0-0.5); Bilirubin Total 0.1 mg/dL (0.0-1.0); Blood Urea Nitrogen 35 mg/dL (9-16); Carbon Dioxide 21 mmol/L (22-29); Chloride 107 mmol/L (96-108); Creatinine Clr Calc Pharmacy 31.5; Estimated Glomerular Filt Rate 31; Glucose Random 154 mg/dL (60-115); Potassium 4.4 mmol/L (3.3-5.1); Sodium 139 mmol/L (135-145); Total Protein 8.3 g/dL (6.5-8.0)
[2023-09-23] MEDS: Naloxone HCl 2 MG/2 ML SYRINGE IVPUSH (22:37)
--- NOTE | 2023-09-23 22:37 | PC.NURSE ---
iv narcan given per provider order, security at bedside. pt alert at this time.
--- NOTE | 2023-09-24 00:16 | PC.NURSE ---
multiple attempts to reach family members, no answer and phone turned off.
--- NOTE | 2023-09-24 00:21 | PC.NURSE ---
pt standing up at bedside, unsteady on feet, pt refusing to sit back in bed at this time. dry pan charger Joselyn aware, reports sitters are not available at this time.
[2023-09-24 01:48] VITALS: BP 169/84; PULSE 106; RESP 18; TEMP 36.9; O2SAT 94
[2023-09-24 04:53] VITALS: BP 136/67; PULSE 66; RESP 20; TEMP 36.5; O2SAT 95
--- NOTE | 2023-09-24 04:54 | PC.NURSE ---
pt resting in stretcher, no acute distress noted. vss.
[2023-09-24 07:20] VITALS: BP 145/68; PULSE 67; RESP 20; TEMP 36.6; O2SAT 97
--- NOTE | 2023-09-24 08:34 | PC.NURSE ---
PT AWAKE AND ALERT SHE IS EATING AND TOLERATING PO FLUIDS, IV ACCESS WAS REMOVED AND A RIDE HOME HAS BEEN SECURE FOR HOSPITAL TRANSPORT
[2023-09-24 08:35] VITALS: BP 145/68; PULSE 67; RESP 20; TEMP 36.6; O2SAT 97
== END 2023-09-24 08:36 | disposition home or self-care (01) ==
PROVIDERS: Emergency Provider Emergency Medicine Emergency Medical Services
DX: F11.10 Opioid abuse, uncomplicated (principal); I10 Essential (primary) hypertension; E11.9 Type 2 diabetes mellitus without complications
CPT/HCPCS: 36415; 80048; 80076; 85025; 93005; 96361; 96374; 99284; J2310

== ENCOUNTER → 2023-09-23 21:57 | Outpatient (BNV) | payer MEDICARE, MEDICAID, SELFPAY | PROVIDERS: Emergency Provider Emergency Medicine Emergency Medical Services; Visit Provider Internal Medicine | DX: F19.10 Other psychoactive substance abuse, uncomplicated (principal) | CPT/HCPCS: 93010 ==

== ENCOUNTER 2024-01-15 09:32 | Outpatient (REF) | payer MEDICARE, MEDICAID, SELFPAY ==
--- NOTE | ~2024-01-15 | XR_ITS ---
EXAMINATION: XR PELVIS CLINICAL INFORMATION: Question sacroiliitis COMPARISON: 04/19/2022 TECHNIQUE: AP view of the pelvis. FINDINGS: Mild osteoarthritis in both hips with cephalad joint space narrowing and marginal osteophytes. Mild osteoarthritis in the SI joints without appreciable erosive change to indicate sacroiliitis. Degenerative disc disease and facet arthropathy in the lower lumbar spine. Enthesopathic spurs at the anterior superior iliac spines. No acute soft tissue findings. No fracture or malalignment. XR/XR pelvis 1-2V IMPRESSION: Mild osteoarthritis in the hips and SI joints. No radiographic findings of sacroiliitis.
--- NOTE | ~2024-01-15 | XR_ITS ---
EXAMINATION: XR TIBIA AND FIBULA, LEFT CLINICAL INFORMATION: Medial tibial wound, ulcer. Evaluate for osteomyelitis. COMPARISON: None available. TECHNIQUE: AP and lateral views of the left tibia and fibula were obtained. FINDINGS: Soft tissue swelling and subcutaneous edema are present at the lower leg. There is a sagittally oriented lucency through the medial tibial plafond with osseous bridging, most consistent with a healed fracture. No acute fractures are identified. No specific findings of osteomyelitis are identified at the tibia and fibula. No subcutaneous gas. Mild osteoarthritis in the talocrural joint, knee joint, and midfoot. Enthesopathic spurs at the Achilles tendon insertion and plantar fascial origin. XR/XR tibia fibula LT 2V IMPRESSION: 1. Soft tissue swelling and subcutaneous edema at the lower leg. No specific findings of osteomyelitis. 2. Old medial tibial plafond fracture.
== END 2024-01-15 09:33 | disposition home or self-care (01) ==
LOC: HO.HHCX 09:32
PROVIDERS: Visit Provider Internal Medicine
DX: M79.18 Myalgia, other site (principal); E11.622 Type 2 diabetes mellitus with other skin ulcer; L97.929 Non-pressure chronic ulcer of unspecified part of left lower leg with unspecified severity; M16.0 Bilateral primary osteoarthritis of hip
CPT/HCPCS: 72170; 73590

== ENCOUNTER 2024-03-01 13:33 | Outpatient (RCR) | payer MEDICARE, MEDICAID, SELFPAY | END 2024-06-28 12:35 | disposition home or self-care (01) | LOC: HO.WCC 13:33 | PROVIDERS: PCP Internal Medicine; Visit Provider Physician Assistant | DX: E11.622 Type 2 diabetes mellitus with other skin ulcer (principal); L97.822 Non-pressure chronic ulcer of other part of left lower leg with fat layer exposed; I87.2 Venous insufficiency (chronic) (peripheral); I10 Essential (primary) hypertension; F11.20 Opioid dependence, uncomplicated; Z87.891 Personal history of nicotine dependence | CPT/HCPCS: 11042; 99212 ==

== ENCOUNTER 2024-05-16 00:34 | Emergency (ER) | payer MEDICARE, MEDICAID, SELFPAY ==
--- NOTE | 2024-05-16 | ECG_ITS ---
Test Reason : LATHARGY Blood Pressure : / mmHG Vent. Rate : 073 BPM Atrial Rate : 073 BPM P-R Int : 126 ms QRS Dur : 082 ms QT Int : 406 ms P-R-T Axes : 052 054 058 degrees QTc Int : 447 ms Normal sinus rhythm Normal ECG When compared with ECG of 23-SEP-2023 22:19, No significant change was found Referred By: Generic ED Physician Electronically Signed By:Shimon Chua
[2024-05-16 00:41] VITALS: BP 179/93; BP 210/88; PULSE 77; PULSE 87; RESP 16; O2SAT 97; O2SAT 98; BMI 31.5
--- NOTE | 2024-05-16 01:21 | ED_ITS ---
HPI - SOB/Dyspnea General Chief Complaint: ETOH/Substance Use Stated Complaint: substance use,section 12 Time Seen by Provider: 05/16/24 01:19 Source: patient Mode of arrival: EMS Limitations: no limitations History of Present Illness ED Provider: humera BRAGG Narrative: Patient with history of polysubstance use cocaine and opiates abuse used 1 bag of heroin prior to arrival was very manic when EMS arrived threatened to throw herself out of the 4th floor window section 12 Related Data Home Medications ?Medication ?Instructions ?Recorded ?Confirmed baclofen 10 mg tablet 1 tab PO TID 04/19/22 09/02/23 docusate sodium 100 mg capsule 1 cap PO BEDTIME PRN constipation 04/19/22 09/02/23 ferrous sulfate 325 mg (65 mg 325 mg PO DAILY 04/19/22 09/02/23 iron) tablet (FeroSul) fluoxetine 20 mg capsule 2 cap PO DAILY 04/19/22 09/02/23 gabapentin 800 mg tablet 1 tab PO TID 04/19/22 09/02/23 insulin glargine 100 unit/mL 25 unit subcut BEDTIME 04/19/22 09/02/23 subcutaneous solution (Lantus U-100 Insulin) linagliptin 5 mg tablet (Tradjenta) 1 tab PO DAILY 04/19/22 09/02/23 metformin 1,000 mg tablet 1 tab PO BID 04/19/22 09/02/23 pantoprazole 40 mg tablet,delayed 1 tab PO DAILY@0630 04/19/22 09/02/23 release methadone 10 mg/mL oral 115 mg PO DAILY 04/21/22 09/02/23 concentrate (Methadone Intensol) ibuprofen 600 mg tablet 600 mg PO TID 07/07/23 09/02/23 mirtazapine 7.5 mg tablet 7.5 mg PO BEDTIME 07/07/23 09/02/23 Previous Rx's ?Medication ?Instructions ?Recorded cefdinir 300 mg capsule 300 mg PO BID #16 caps 07/09/23 naloxone 4 mg/actuation nasal spray 4 mg intranasal Q2M PRN opioid 07/09/23 overdose #2 ea Allergies Allergy/AdvReac Type Severity Reaction Status Date / Time Penicillins Allergy Mild HIVES Verified 05/16/24 00:44 Review of Systems 2 Review of Systems: Yes all other systems are reviewed and are negative PMFSH Past Medical History Medical History Positive blood culture Sepsis Acute kidney injury Acute respiratory failure Acute respiratory alkalosis Lactic acidosis Acute encephalopathy Rhabdomyolysis Opiate use Diabetes HTN (hypertension) Social History Social History Household Members: Family Housing: Apartment Do you presently have visiting nurse or other home services: No Unable to assess alcohol history related to: Unable to respond and Unknown Alcohol intake: never Comment: potential for elopment Patient Tobacco Use Status: Current everyday Tobacco user Tobacco use type: Cigarette Cigarettes Per Day: 5 Smoked in Last 30 Days: Yes e-Cigarette/Vaping Use: Never Used Use of substances other than those prescribed or required for medical reasons: Yes Substance Use Type: Heroin Advance Directives: Yes Advance Directives on File: Yes Advance Directives Date on File: 07/10/23 Do you have a plan to hurt others: No Plan service: No Current occupational status: disabled Physical Exam 2 Vital Signs: Vital Signs: Last Vital Signs Temp 97.7 F 05/16/24 02:06 Pulse 70 05/16/24 02:06 Resp 16 05/16/24 02:06 BP 158/69 H 05/16/24 02:06 Pulse Ox 96 05/16/24 02:06 O2 Del Method Room Air 05/16/24 02:06 BMI result Body Mass Index 31.5 Appearance: Alert. Oriented X3. Sleepy Eyes: PERRLA, No Nystagmus ENT: Pharynx normal. Oral Mucosa moist Neck: Normal inspection. Neck supple. CVS: Normal heart rate and rhythm. Pulses normal. Respiratory: No respiratory distress. Equal air entry bilateral, no wheezing/rales/rhonchi Abdomen: Soft and nontender. Bowel sounds are present, no mass palpable, no CVA tenderness Skin: Skin warm and dry. Normal skin color. Normal skin turgor. Extremities: No lower extremity edema. No calf tenderness Neuro: Oriented X 3. No motor deficit. No sensory deficit.No cerebellar signs , cranial nerves II-XII intact Medical Decision Making Medical Decision Making MDM Narrative: Patient with heroin overdose with suicidal feeling consult care team for evaluation Lab Data [facility] Lab Attestation statement: I reviewed the patient's lab results. 05/16/24 01:24 05/16/24 01:24 Labs: Lab Results 05/16/24 05/16/24 Range/Units 01:11 01:24 WBC 8.3 (4.8-10.8) X10*3/uL RBC 4.27 (4.20-5.50) X10*6/uL Hgb 11.9 L (12.0-16.0) g/dl Hct 36.8 L (37.0-47.0) % MCV 86.2 (80.0-98.0) fL MCH 27.9 (27.0-33.0) pg MCHC 32.3 (31.0-35.0) g/dl RDW 15.6 (11.0-16.0) % Plt Count 307 (160-400) X10*3/uL MPV 10.6 (9.4-12.3) fL Immature Gran % (Auto) 0.2 (0.0-0.4) % Neut % (Auto) 78.2 H (45-73) % Lymph % (Auto) 14.8 L (20-40) % [place] % (Auto) 5.5 (2-11) % Eos % (Auto) 0.7 (0-4) % Baso % (Auto) 0.6 (0-2) % Lymph # (Auto) 1.2 (1.2-4.9) X10*3/uL [place] # (Auto) 0.5 (0.1-1.2) X10*3/uL Eos # (Auto) 0.1 (0.0-0.4) X10*3/uL Baso # (Auto) 0.1 (0.0-0.2) X10*3/uL Abs Immat Gran (auto) 0.02 (0.00-0.03) X10*3/uL Absolute Neuts (auto) 6.5 (2.0-8.3) x10*3/uL Absolute Nucleated RBC 0.000 (0.0-0.012) X10*3/uL Nucleated RBC % (auto) 0.0 (0.0-0.2) /100WBC Sodium 140 (135-145) mmol/L Potassium 4.0 (3.3-5.1) mmol/L Chloride 105 (96-108) mmol/L Carbon Dioxide 21 L (22-29) mmol/L Anion Gap 18 (12-20) BUN 21 H (9-16) mg/dL Creatinine 1.10 (0.5-1.4) mg/dL Estim Creat Clear Calc 48.3 Estimated GFR 51 Random Glucose 224 H (60-115) mg/dL Calcium 9.4 (8.4-10.2) mg/dL Total Bilirubin 0.1 (0.0-1.0) mg/dL AST 20 (5-31) U/L ALT 8 (0-31) U/L Alkaline Phosphatase 148 H (39-117) U/L Troponin I High Sens 4.1 D (<3.5-17.0) ng/L Total Protein 7.9 (6.5-8.0) g/dL Albumin 3.2 L (3.5-5.0) g/dL Urine Color Yellow Urine Appearance Clear Urine pH 6.5 (5.0-9.0) Ur Specific [place] <= 1.005 (1.005-1.025) Urine Protein 100 (2+) H (Neg-Trace) mg/dL Urine Glucose (UA) 100 H (Negative) mg/dL Urine Ketones Negative (Negative) mg/dL Urine Blood Negative (Negative) Urine Nitrite Negative (Negative) Ur Leukocyte Esterase Negative (Negative) Urine RBC 0-2 (0-2) /HPF Urine WBC 0-5 (0-5) /HPF Ur Squamous Epith Cells 0-2 (0-2) /HPF Urine Bacteria None Seen (None Seen) Hyaline Casts 0-2 (0-2) /LPF Salicylates < 5.0 L (15-30) mg/dL Urine Opiates Screen POSITIVE H (Not Detect) Ur Buprenorphine Scrn Not Detected (Not Detect) ng/mL Ur Oxycodone Screen Not Detected (Not Detect) ng/mL Urine Methadone Screen Positive H (Not Detect) ng/mL Urine Fentanyl Screen POSITIVE H (Not Detect) Acetaminophen < 3 (<30) mcg/mL Ur Barbiturates Screen Not Detected (Not Detect) Ur Phencyclidine Scrn Not Detected (Not Detect) Ur Amphetamines Screen Not Detected (Not Detect) U Benzodiazepines Scrn Not Detected (Not Detect) Urine Cocaine Screen POSITIVE H (Not Detect) U Marijuana (THC) Screen Not Detected (Not Detect) Ethyl Alcohol < 10 mg/dL Discharge Plan Discharge Clinical Impression: Polysubstance abuse, Feeling suicidal Patient Disposition: Still a Patient Prescriptions: No Action insulin glargine [Lantus U-100 Insulin] 100 unit/mL solution 25 unit subcut BEDTIME gabapentin 800 mg tablet 1 tab PO TID baclofen 10 mg tablet 1 tab PO TID pantoprazole 40 mg tablet,delayed release (DR/EC) 1 tab PO DAILY@0630 ferrous sulfate [FeroSul] 325 mg (65 mg iron) tablet 325 mg PO DAILY metformin 1,000 mg tablet 1 tab PO BID docusate sodium 100 mg capsule 1 cap PO BEDTIME PRN (Reason: constipation) fluoxetine 20 mg capsule 2 cap PO DAILY Tradjenta 5 mg tablet 1 tab PO DAILY methadone [Methadone Intensol] 10 mg/mL Concentrate 115 mg PO DAILY ibuprofen 600 mg tablet 600 mg PO TID mirtazapine 7.5 mg tablet 7.5 mg PO BEDTIME cefdinir 300 mg capsule 300 mg PO BID Qty: 16 0RF naloxone 4 mg/actuation spray,non-aerosol 4 mg intranasal Q2M PRN (Reason: opioid overdose) Qty: 2 0RF Rx Instructions: spray 1 dose into ONE nostril; alternate nostrils w each dose until help arrives Print Language: Turkmen
[2024-05-16 01:30] LABS: Basophils Absolute Auto 0.1 X10*3/uL (0.0-0.2); Basophils Percent Auto 0.6 % (0-2); Eosinophils Absolute Auto 0.1 X10*3/uL (0.0-0.4); Eosinophils Percent Auto 0.7 % (0-4); Hematocrit 36.8 % (37.0-47.0); Hemoglobin 11.9 g/dl (12.0-16.0); Imm Gran Abs Auto 0.02 X10*3/uL (0.00-0.03); Imm Gran Pct Auto 0.2 % (0.0-0.4); Lymphocytes Absolute Auto 1.2 X10*3/uL (1.2-4.9); Lymphocytes Percent Auto 14.8 % (20-40); MANUAL DIFF FLAG NO; Mean Corpuscular HGB Conc 32.3 g/dl (31.0-35.0); Mean Corpuscular Hemoglobin 27.9 pg (27.0-33.0); Mean Corpuscular Volume 86.2 fL (80.0-98.0); Mean Platelet Volume 10.6 fL (9.4-12.3); Monocytes Absolute Auto 0.5 X10*3/uL (0.1-1.2); Monocytes Percent Auto 5.5 % (2-11); Neutrophils Absolute Auto 6.5 x10*3/uL (2.0-8.3); Neutrophils Percent Auto 78.2 % (45-73); Platelet Count 307 X10*3/uL (160-400); Red Blood Count 4.27 X10*6/uL (4.20-5.50); Red Cell Distribution Width 15.6 % (11.0-16.0); White Blood Count 8.3 X10*3/uL (4.8-10.8)
[2024-05-16 01:33] LABS: Appearance Urine Clear; Color Urine Yellow; Glucose Urine UA 100 mg/dL (Negative); Leukocyte Esterase Urine Negative (Negative); Nitrite Urine Negative (Negative); PH 6.5 (5.0-9.0); Specific Gravity - Urine <= 1.005 (1.005-1.025); UMIC TRIGGER UACC YES; Urine Blood Negative (Negative); Urine Ketones Negative (Negative); Urine Protein 100 (2+) mg/dL (Neg-Trace)
[2024-05-16 01:36] LABS: Bacteria Urine None Seen (None Seen); Hyaline Casts Urine 0-2 /LPF (0-2); RBC Urine 0-2 /HPF (0-2); Squamous Epithelial Cell Urine 0-2 /HPF (0-2); WBC Urine 0-5 /HPF (0-5)
[2024-05-16 01:45] LABS: Amphetamine Screen Urine Not Detected (Not Detect); Barbiturates, Urine Not Detected (Not Detect); Benzodiazepines Screen Urine Not Detected (Not Detect); Buprenorphine Scr Not Detected (Not Detect); Cannabinoid Screen Urine Not Detected (Not Detect); Cocaine Screen Urine POSITIVE (Not Detect); Fentanyl, urine POSITIVE (Not Detect); Methadone Screen, Urine Positive (Not Detect); Opiate Screen Urine POSITIVE (Not Detect); Oxycodone Screen Urine Not Detected (Not Detect); Phencyclidine Screen Urine Not Detected (Not Detect)
[2024-05-16 01:52] LABS: Alanine Aminotransferase 8 U/L (0-31); Albumin Level 3.2 g/dL (3.5-5.0); Alkaline Phosphatase 148 U/L (39-117); Anion Gap 18 (12-20); Aspartate Amino Transferase 20 U/L (5-31); Blood Urea Nitrogen 21 mg/dL (9-16); Calcium 9.4 mg/dL (8.4-10.2); Carbon Dioxide 21 mmol/L (22-29); Chloride 105 mmol/L (96-108); Creatinine Clr Calc Pharmacy 48.3; Estimated Glomerular Filt Rate 51; Ethanol < 10 mg/dL; Glucose Random 224 mg/dL (60-115); Sodium 140 mmol/L (135-145); Total Protein 7.9 g/dL (6.5-8.0)
[2024-05-16 01:55] LABS: Troponin-I High Sensitivity 4.1 ng/L (<3.5-17.0)
[2024-05-16 02:01] LABS: Bilirubin Total 0.1 mg/dL (0.0-1.0)
[2024-05-16 02:06] VITALS: BP 158/69; PULSE 70; RESP 16; TEMP 36.5; O2SAT 96
[2024-05-16 02:44] LABS: Acetaminophen LAB < 3 mcg/mL (<30); Salicylate < 5.0 mg/dL (15-30)
--- NOTE | 2024-05-16 03:37 | PC.NURSE ---
late entry 0045- pt biba from home called by eunice tam reporting pt has been tired/?falling all day, pt admits to use of 1 bag of heroin ?2 hours vs 2 days ago. manic behavior per ems. pt threatened to throw herself out of 4th floor window. section 12. hx htn/diabetes/substance use. on arrival pt is axox4 denies si/hi reports last used heroin 2 days ago. pt changed over to hospital attire belongings to [facility]. charge entry clerk aware for need for 1:1. pt remains in 22 [address] at this time. labs and ekg ordered and obtained. pt cleared by and report given to Samantha DOS SANTOS in POD. pt escorted to POD by security.
--- NOTE | 2024-05-16 07:33 | PC.NURSE ---
Assumed care of patient at 0645, patient appears to be in no apparent distress this am, calm and cooperative, agreeable to vitals and EKG at this time. Pt offers no complaints to this RN. Continue plan of care for inpatient bedsearch
--- NOTE | 2024-05-16 10:44 | MHC.CARE ---
Pt does not meet IPLOC. Pt denies SI, HI, and A/V/H. Declining all resources for substance use or to meet with the recovery team. Pt to be discharged home per provider.
[2024-05-16 10:52] VITALS: BP 142/86; PULSE 84; RESP 16; TEMP 36.6; O2SAT 99
--- NOTE | 2024-05-16 10:52 | PC.NURSE ---
Pt reports she has take home methadone bottles and does not want to be dosed here at the hospital
== END 2024-05-16 10:53 | disposition home or self-care (01) ==
PROVIDERS: Emergency Provider Internal Medicine; PCP Internal Medicine
DX: F11.10 Opioid abuse, uncomplicated (principal); F14.10 Cocaine abuse, uncomplicated; F17.210 Nicotine dependence, cigarettes, uncomplicated; F19.10 Other psychoactive substance abuse, uncomplicated; E11.9 Type 2 diabetes mellitus without complications; R53.83 Other fatigue; Z51.81 Encounter for therapeutic drug level monitoring; Z79.899 Other long term (current) drug therapy; Z79.01 Long term (current) use of anticoagulants; Z79.4 Long term (current) use of insulin
CPT/HCPCS: 36415; 80053; 80143; 80179; 80307; 81001; 84484; 85025; 93005; 99284; S9485

== ENCOUNTER → 2024-05-16 01:15 | Outpatient (BNV) | payer MEDICARE, MEDICAID, SELFPAY | PROVIDERS: Emergency Provider Internal Medicine; PCP Internal Medicine; Visit Provider Internal Medicine Cardiovascular Disease | DX: R53.83 Other fatigue (principal) | CPT/HCPCS: 93010 ==

== ENCOUNTER 2024-07-15 20:41 | Emergency (ER) | payer MEDICARE, MEDICAID, SELFPAY ==
--- NOTE | 2024-07-15 21:11 | MHC.EDTECH ---
all patient belongings are in decon
[2024-07-15 21:19] VITALS: PULSE 120; RESP 18; TEMP 36.6; O2SAT 99; BMI 22.2
[2024-07-15 21:30] LABS: MANUAL DIFF FLAG NO
[2024-07-15 21:32] LABS: Basophils Absolute Auto 0.1 X10*3/uL (0.0-0.2); Basophils Percent Auto 0.5 % (0-2); Eosinophils Absolute Auto 0.1 X10*3/uL (0.0-0.4); Eosinophils Percent Auto 0.8 % (0-4); Hematocrit 38.3 % (37.0-47.0); Hemoglobin 12.3 g/dl (12.0-16.0); Imm Gran Abs Auto 0.08 X10*3/uL (0.00-0.03); Imm Gran Pct Auto 0.5 % (0.0-0.4); Lymphocytes Absolute Auto 1.5 X10*3/uL (1.2-4.9); Lymphocytes Percent Auto 9.6 % (20-40); Mean Corpuscular HGB Conc 32.1 g/dl (31.0-35.0); Mean Corpuscular Hemoglobin 27.5 pg (27.0-33.0); Mean Corpuscular Volume 85.7 fL (80.0-98.0); Mean Platelet Volume 10.5 fL (9.4-12.3); Monocytes Absolute Auto 0.5 X10*3/uL (0.1-1.2); Monocytes Percent Auto 3.5 % (2-11); Neutrophils Absolute Auto 13.3 x10*3/uL (2.0-8.3); Neutrophils Percent Auto 85.1 % (45-73); Platelet Count 442 X10*3/uL (160-400); Red Blood Count 4.47 X10*6/uL (4.20-5.50); Red Cell Distribution Width 15.5 % (11.0-16.0); White Blood Count 15.6 X10*3/uL (4.8-10.8)
[2024-07-15 21:34] VITALS: BP 160/121; PULSE 120; RESP 18; TEMP 36.6; O2SAT 99
[2024-07-15 21:36] LABS: Appearance Urine Clear; Color Urine Yellow; Glucose Urine UA 100 mg/dL (Negative); Leukocyte Esterase Urine Negative (Negative); Nitrite Urine Negative (Negative); PH 6.5 (5.0-9.0); UMIC TRIGGER UACC YES; Urine Blood Small (1+) (Negative); Urine Ketones Negative (Negative); Urine Protein 100 (2+) mg/dL (Neg-Trace)
[2024-07-15 21:37] LABS: Glucose, Whole Blood 221 mg/dL (60-115)
[2024-07-15 21:53] LABS: Amphetamine Screen Urine Not Detected (Not Detect); Bacteria Urine None Seen (None Seen); Barbiturates, Urine Not Detected (Not Detect); Benzodiazepines Screen Urine Not Detected (Not Detect); Buprenorphine Scr Not Detected (Not Detect); Cannabinoid Screen Urine Not Detected (Not Detect); Cocaine Screen Urine POSITIVE (Not Detect); Fentanyl, urine POSITIVE (Not Detect); Methadone Screen, Urine Positive (Not Detect); Opiate Screen Urine POSITIVE (Not Detect); Oxycodone Screen Urine Not Detected (Not Detect); Phencyclidine Screen Urine Not Detected (Not Detect); RBC Urine 0-2 /HPF (0-2); WBC Urine 0-5 /HPF (0-5)
[2024-07-15] MEDS: LORazepam 2 MG/ML VIAL IVPUSH (21:54)
[2024-07-15 21:56] LABS: Anion Gap 20 (12-20); Blood Urea Nitrogen 30 mg/dL (9-16); Carbon Dioxide 20 mmol/L (22-29); Chloride 104 mmol/L (96-108); Creatinine Clr Calc Pharmacy 19.9; Estimated Glomerular Filt Rate 23; Ethanol < 10 mg/dL; Glucose Random 258 mg/dL (60-115); Potassium 3.8 mmol/L (3.3-5.1); Sodium 140 mmol/L (135-145)
--- NOTE | 2024-07-15 22:39 | ED_ITS ---
HPI - General Adult General Chief complaint: Altered Mental Status Stated complaint: AMS, SUBSTANCE USE Time Seen by Provider: 07/15/24 21:37 Source: patient Mode of arrival: EMS Limitations: no limitations History of Present Illness ED Provider: HPI narrative: Patient with history of substance abuse use cocaine and heroin brought by EMS for being agitated after using drugs thrashing all over no signs of head injury Related Data Home Medications ?Medication ?Instructions ?Recorded ?Confirmed baclofen 10 mg tablet 1 tab PO TID 04/19/22 09/02/23 docusate sodium 100 mg capsule 1 cap PO BEDTIME PRN constipation 04/19/22 09/02/23 ferrous sulfate 325 mg (65 mg 325 mg PO DAILY 04/19/22 09/02/23 iron) tablet (FeroSul) fluoxetine 20 mg capsule 2 cap PO DAILY 04/19/22 09/02/23 gabapentin 800 mg tablet 1 tab PO TID 04/19/22 09/02/23 insulin glargine 100 unit/mL 25 unit subcut BEDTIME 04/19/22 09/02/23 subcutaneous solution (Lantus U-100 Insulin) linagliptin 5 mg tablet (Tradjenta) 1 tab PO DAILY 04/19/22 09/02/23 metformin 1,000 mg tablet 1 tab PO BID 04/19/22 09/02/23 pantoprazole 40 mg tablet,delayed 1 tab PO DAILY@0630 04/19/22 09/02/23 release methadone 10 mg/mL oral 115 mg PO DAILY 04/21/22 09/02/23 concentrate (Methadone Intensol) ibuprofen 600 mg tablet 600 mg PO TID 07/07/23 09/02/23 mirtazapine 7.5 mg tablet 7.5 mg PO BEDTIME 07/07/23 09/02/23 Previous Rx's ?Medication ?Instructions ?Recorded cefdinir 300 mg capsule 300 mg PO BID #16 caps 07/09/23 naloxone 4 mg/actuation nasal spray 4 mg intranasal Q2M PRN opioid 07/09/23 overdose #2 ea Allergies Allergy/AdvReac Type Severity Reaction Status Date / Time Penicillins Allergy Mild HIVES Verified 07/15/24 21:21 Review of Systems 2 Review of Systems: Yes Unobtainable due to mental status PMFSH Past Medical History Medical History Positive blood culture Sepsis Acute kidney injury Acute respiratory failure Acute respiratory alkalosis Lactic acidosis Acute encephalopathy Rhabdomyolysis Opiate use Diabetes HTN (hypertension) Social History Social History Household Members: Family Housing: Apartment Do you presently have visiting nurse or other home services: No Unable to assess alcohol history related to: Unable to respond and Unknown Alcohol intake: never Comment: potential for elopment Patient Tobacco Use Status: Current everyday Tobacco user Tobacco use type: Cigarette Cigarettes Per Day: 5 Smoked in Last 30 Days: Yes e-Cigarette/Vaping Use: Never Used Use of substances other than those prescribed or required for medical reasons: Yes Substance Use Type: Crack/Cocaine and Marijuana Substance Use Frequency: Chronic Longstanding Advance Directives: Yes Advance Directives on File: Yes Advance Directives Date on File: 07/10/23 Patient : No service: No Current occupational status: disabled Physical Exam ED Vital Signs: Vital Signs - 24 hr 07/15/24 21:19 07/15/24 21:34 07/15/24 23:09 Temperature 97.8 F 97.8 F Pulse Rate 120 H 120 H 119 H Respiratory Rate 18 18 13 Blood Pressure 160/121 H 192/98 H Pulse Oximetry 99 99 96 Oxygen Delivery Method Room Air Room Air Room Air 07/16/24 00:00 07/16/24 04:00 07/16/24 06:00 Temperature 97.8 F 97.8 F 97.6 F Pulse Rate 68 62 67 Respiratory Rate 16 11 L 16 Blood Pressure 114/59 L 157/73 H 163/67 H Pulse Oximetry 93 95 95 Oxygen Delivery Method Room Air Room Air Room Air BMI result Body Mass Index 22.2 Appearance: Alert. Oriented X3. No acute distress. Eyes: PERRLA, No Nystagmus ENT: Pharynx normal. Oral Mucosa moist atraumatic normocephalic Neck: Normal inspection. Neck supple. CVS: Normal heart rate and rhythm. Pulses normal. Respiratory: No respiratory distress. Equal air entry bilateral, no wheezing/rales/rhonchi Abdomen: Soft and nontender. Bowel sounds are present, no mass palpable, no CVA tenderness Skin: Skin warm and dry. Normal skin color. Normal skin turgor. Extremities: No lower extremity edema. No calf tenderness Neuro: Oriented X 3. No motor deficit. No sensory deficit.No cerebellar signs , cranial nerves II-XII intact Medications Administered Discontinued Medications Generic Name Dose Route Start Last Admin Trade Name Bel PRN Reason Stop Dose Admin Sodium Chloride 1,000 mls @ 999 mls/hr 07/15/24 22:45 07/16/24 01:00 Ns IV 07/15/24 23:45 Infused .Q1H1M ONE Infusion Lorazepam 2 mg 07/15/24 21:42 07/15/24 21:54 Lorazepam 2 Mg/Ml Vial IVPUSH 07/15/24 21:43 2 mg ONCE ONE Administration Medical Decision Making Medical Decision Making [facility] Narrative: Patient has slept all night with stable vitals will discharge patient home once she wakes up Lab Data [facility] Lab Attestation statement: I reviewed the patient's lab results. 07/15/24 21:24 07/15/24 21:24 Labs: Lab Results 07/15/24 07/15/24 Range/Units 21:24 21:32 WBC 15.6 H (4.8-10.8) X10*3/uL RBC 4.47 (4.20-5.50) X10*6/uL Hgb 12.3 (12.0-16.0) g/dl Hct 38.3 (37.0-47.0) % MCV 85.7 (80.0-98.0) fL MCH 27.5 (27.0-33.0) pg MCHC 32.1 (31.0-35.0) g/dl RDW 15.5 (11.0-16.0) % Plt Count 442 H D (160-400) X10*3/uL MPV 10.5 (9.4-12.3) fL Immature Gran % (Auto) 0.5 H (0.0-0.4) % Neut % (Auto) 85.1 H (45-73) % Lymph % (Auto) 9.6 L (20-40) % [place] % (Auto) 3.5 (2-11) % Eos % (Auto) 0.8 (0-4) % Baso % (Auto) 0.5 (0-2) % Lymph # (Auto) 1.5 (1.2-4.9) X10*3/uL [place] # (Auto) 0.5 (0.1-1.2) X10*3/uL Eos # (Auto) 0.1 (0.0-0.4) X10*3/uL Baso # (Auto) 0.1 (0.0-0.2) X10*3/uL Abs Immat Gran (auto) 0.08 H (0.00-0.03) X10*3/uL Absolute Neuts (auto) 13.3 H (2.0-8.3) x10*3/uL Absolute Nucleated RBC 0.000 (0.0-0.012) X10*3/uL Nucleated RBC % (auto) 0.0 (0.0-0.2) /100WBC Sodium 140 (135-145) mmol/L Potassium 3.8 (3.3-5.1) mmol/L Chloride 104 (96-108) mmol/L Carbon Dioxide 20 L (22-29) mmol/L Anion Gap 20 (12-20) BUN 30 H (9-16) mg/dL Creatinine 2.24 H (0.5-1.4) mg/dL Estim Creat Clear Calc 19.9 Estimated GFR 23 POC Glucose 221 H (60-115) mg/dL Random Glucose 258 H (60-115) mg/dL Calcium 9.0 (8.4-10.2) mg/dL Total Creatine Kinase 197 H (26-140) U/L Urine Color Yellow Urine Appearance Clear Urine pH 6.5 (5.0-9.0) Ur Specific [place] 1.010 (1.005-1.025) Urine Protein 100 (2+) H (Neg-Trace) mg/dL Urine Glucose (UA) 100 H (Negative) mg/dL Urine Ketones Negative (Negative) mg/dL Urine Blood Small (1+) H (Negative) Urine Nitrite Negative (Negative) Ur Leukocyte Esterase Negative (Negative) Urine RBC 0-2 (0-2) /HPF Urine WBC 0-5 (0-5) /HPF Ur Squamous Epith Cells 3-5 (0-2) /HPF Urine Bacteria None Seen (None Seen) Hyaline Casts 3-5 (0-2) /LPF Urine Opiates Screen POSITIVE H (Not Detect) Ur Buprenorphine Scrn Not Detected (Not Detect) ng/mL Ur Oxycodone Screen Not Detected (Not Detect) ng/mL Urine Methadone Screen Positive H (Not Detect) ng/mL Urine Fentanyl Screen POSITIVE H (Not Detect) Ur Barbiturates Screen Not Detected (Not Detect) Ur Phencyclidine Scrn Not Detected (Not Detect) Ur Amphetamines Screen Not Detected (Not Detect) U Benzodiazepines Scrn Not Detected (Not Detect) Urine Cocaine Screen POSITIVE H (Not Detect) U Marijuana (THC) Screen Not Detected (Not Detect) Ethyl Alcohol < 10 mg/dL Independent Interpretation I performed an independent interpretation of an: EKG Interpretation: Normal sinus rhythm heart rate 73 beats per minute normal intervals normal axis no acute ST-T no acute ischemia Discharge Plan Discharge Clinical Impression: Polysubstance abuse Patient Disposition: Home, Self-Care Instructions: Polysubstance Abuse (ED) Additional Instructions: Stop using drugs follow up with detox Prescriptions: No Action insulin glargine [Lantus U-100 Insulin] 100 unit/mL solution 25 unit subcut BEDTIME gabapentin 800 mg tablet 1 tab PO TID baclofen 10 mg tablet 1 tab PO TID pantoprazole 40 mg tablet,delayed release (DR/EC) 1 tab PO DAILY@0630 ferrous sulfate [FeroSul] 325 mg (65 mg iron) tablet 325 mg PO DAILY metformin 1,000 mg tablet 1 tab PO BID docusate sodium 100 mg capsule 1 cap PO BEDTIME PRN (Reason: constipation) fluoxetine 20 mg capsule 2 cap PO DAILY Tradjenta 5 mg tablet 1 tab PO DAILY methadone [Methadone Intensol] 10 mg/mL Concentrate 115 mg PO DAILY ibuprofen 600 mg tablet 600 mg PO TID mirtazapine 7.5 mg tablet 7.5 mg PO BEDTIME cefdinir 300 mg capsule 300 mg PO BID Qty: 16 0RF naloxone 4 mg/actuation spray,non-aerosol 4 mg intranasal Q2M PRN (Reason: opioid overdose) Qty: 2 0RF Rx Instructions: spray 1 dose into ONE nostril; alternate nostrils w each dose until help arrives Print Language: Austrian
[2024-07-15] MEDS: 0.9 % Sodium Chloride 1,000 ML 999 ML IV (23:03)
[2024-07-15 23:09] VITALS: BP 192/98; PULSE 119; RESP 13; O2SAT 96
[2024-07-16] VITALS: BP 114/59; PULSE 68; RESP 16; TEMP 36.6; O2SAT 93
[2024-07-16 04:00] VITALS: BP 157/73; PULSE 62; RESP 11; TEMP 36.6; O2SAT 95
[2024-07-16 06:00] VITALS: BP 163/67; PULSE 67; RESP 16; TEMP 36.4; O2SAT 95
[2024-07-16 11:29] VITALS: BP 133/79; PULSE 67; RESP 14; TEMP 37.1; O2SAT 92
[2024-07-16 15:34] VITALS: BP 167/74; PULSE 82; RESP 18; TEMP 36.7; O2SAT 95
--- NOTE | 2024-07-16 15:45 | PC.NURSE ---
Pt up for d/c Pts personal methadone retrieved from Pharmacy. Pt signs form on d/c for taking custody of Methadone. Form placed to be filed with d/c paperwork
[2024-07-16 15:47] VITALS: BP 167/74; PULSE 82; RESP 18; TEMP 36.7; O2SAT 95
== END 2024-07-16 15:47 | disposition home or self-care (01) ==
PROVIDERS: Emergency Provider Internal Medicine; PCP Internal Medicine
DX: R41.82 Altered mental status, unspecified (principal); F11.10 Opioid abuse, uncomplicated; F14.10 Cocaine abuse, uncomplicated; Z79.899 Other long term (current) drug therapy; F17.210 Nicotine dependence, cigarettes, uncomplicated; Z71.51 Drug abuse counseling and surveillance of drug abuser; Z51.81 Encounter for therapeutic drug level monitoring
CPT/HCPCS: 36415; 80048; 80307; 81001; 82550; 82947; 85025; 99285; J2060

== ENCOUNTER 2024-09-06 15:42 | Outpatient (REF) | payer MEDICARE, MEDICAID, SELFPAY ==
[2024-09-06 18:25] LABS: MANUAL DIFF FLAG NO
[2024-09-06 18:54] LABS: Basophils Absolute Auto 0.1 X10*3/uL (0.0-0.2); Basophils Percent Auto 0.6 % (0-2); Eosinophils Absolute Auto 0.3 X10*3/uL (0.0-0.4); Eosinophils Percent Auto 3.1 % (0-4); Hematocrit 34.3 % (37.0-47.0); Hemoglobin 10.9 g/dl (12.0-16.0); Imm Gran Abs Auto 0.06 X10*3/uL (0.00-0.03); Imm Gran Pct Auto 0.6 % (0.0-0.4); Lymphocytes Absolute Auto 2.1 X10*3/uL (1.2-4.9); Lymphocytes Percent Auto 22.3 % (20-40); Mean Corpuscular HGB Conc 31.8 g/dl (31.0-35.0); Mean Corpuscular Hemoglobin 28.5 pg (27.0-33.0); Mean Corpuscular Volume 89.8 fL (80.0-98.0); Mean Platelet Volume 11.4 fL (9.4-12.3); Monocytes Absolute Auto 0.6 X10*3/uL (0.1-1.2); Monocytes Percent Auto 6.3 % (2-11); Neutrophils Absolute Auto 6.2 x10*3/uL (2.0-8.3); Neutrophils Percent Auto 67.1 % (45-73); Platelet Count 316 X10*3/uL (160-400); Red Blood Count 3.82 X10*6/uL (4.20-5.50); Red Cell Distribution Width 15.1 % (11.0-16.0); White Blood Count 9.3 X10*3/uL (4.8-10.8)
[2024-09-06 19:02] LABS: Alanine Aminotransferase 13 U/L (0-31); Albumin Level 3.2 g/dL (3.5-5.0); Alkaline Phosphatase 123 U/L (39-117); Anion Gap 15 (12-20); Aspartate Amino Transferase 21 U/L (5-31); Bilirubin Total 0.2 mg/dL (0.0-1.0); Blood Urea Nitrogen 36 mg/dL (9-16); Calcium 8.6 mg/dL (8.4-10.2); Carbon Dioxide 23 mmol/L (22-29); Chloride 104 mmol/L (96-108); Estimated Glomerular Filt Rate 28; Glucose Random 141 mg/dL (60-115); Magnesium 1.5 mg/dL (1.6-2.6); Potassium 4.5 mmol/L (3.3-5.1); Sodium 137 mmol/L (135-145); TSH reflex Free T4 1.11 uIU/mL (0.32-4.0); Total Protein 7.8 g/dL (6.5-8.0)
[2024-09-06 19:15] LABS: Folate 12.7 ng/mL (> or = 4.0); Vitamin B12 358 pg/mL (200-900)
--- OUTSIDE RECORDS SUMMARY | 2024-09-06 19:44 | XMS_ITS | Encounter Summary ---
Author Organization [employer] Address [address] [facility] [address] [place] [address] Care Team Providers Care Special Service Representative Name Role Phone Walter Aiken MD Primary Care Provider [phone] Reason for Referral * Imaging (Routine) - Closed Specialty Diagnoses / Procedures Referred By Contgómez aguilera Referred To Contact Radiology Diagnoses Chronic tension-type headache, not intractable Procedures CT Head w/o Contrast Walter Aiken MD [address] [place] [place] [address] Phone: tel: fax: [address] Phone: tel: fax: Referral ID Status Reason Start Date Expiration Date Visits Re quested Visits Authorized [id number] Closed 05/25/2024 05/25/2025 1 1 Encounter Details Date Type Department Care Team (Late st Contact Info) Description 05/25/2024 Orders Only [facility] CHC MED & PEDS [address] [place] [address] Walter Aiken MD [address] [place] [address] Chronic tension-type headache, not intractable (Primary Dx) Social History Tobacco Use Types Packs/Day Years Used Date Smoking Tobacco: Every Day Cigarettes 0.3 7 Passive Smoke Exposure: Current Smokeless Tobacco: Never Housing Stability Answer Date Recorded What is your housing situation today? I have iain mccoy 08/11/[address] you li ve. Do you have problems with any of the following? None of the above 08/11/2023 Food Insecurity Answer Date Recorded Within the past 12 months, y ou worried that your food would run out before you got money to buy more: Sometimes True 2023 Within the past 12 months,th e food you bought just didn't last and you didn't have enough money to get more: Sometimes True 08/11/2023 Transportation Answer Date Recorded In the past 12 months, has l ack of transportation kept you from medical appts, meetings, work or from getting things needed for daily living? No 08/11/2023 Utilities Answer Date Recorded In the past 12 months, has t he electric, gas, oil or water company threatened to shut off services in your home? No 08/11/2023 Comments Unknown Sex and Gender Information Value Date Recorded Sex Assigned at Female 05/05/2022 10:15 AM EDT Legal Sex Female 10:15 AM EDT Gender Identity Female 05/05/2022 10:15 AM EDT Sexual Orientation Straight 05/05/2022 10 :15 AM EDT documented as of this encounter Plan of Treatment Scheduled Orders Name Type Priority Associated Diagnoses Orde r Schedule CT Head w/o Contrast Imaging Routine Chronic tension-type headache, not intractable Expected: 05/25/2024, Expires: 05/25/2025 documented as of this encounter Visit Diagnoses Diagnosis Chronic tension-type headache, not intractable- Primary Chronic tension type headache documented in this encounter Care Teams Special Service Representative Relationship Specialty Start Date End Date Walter Aiken MD [address] [place] [id number] PCP - General Internal Medicine 04/05/14 [employer] 08/20/22 documented as of this encounter
--- OUTSIDE RECORDS SUMMARY | 2024-09-06 19:44 | XMS_ITS | Encounter Summary ---
Author Organization [employer] Address [address] [facility] 7t [place] [address] Care Team Providers Care Glass Science Engineer Name Role Phone Walter Aiken MD Primary Care Provider [phone] Encounter Details Date Type Department Care Team (Late st Contact Info) Description 03/09/2024 Orders Only [facility] CHC MED & PEDS [address] [place] [address] Walter Aiken MD [address] [place] [address] Screening for colon cancer (Primary Dx) Social History Tobacco Use Types [...] as of this encounter Plan of Treatment Not on file documented as of this encounter Procedures Procedure Name Priority Date/Time Associated Diagnosis Comments LAB COLOGUARD?? COLON CANCER SCREEN Routine 03/28/2024 7:56 PM EDT Screening for colon cancer documented in this encounter Results * Cologuard?? colon cancer screening (03/28/2024 7:56 PM EDT) Cologuard Result Negative Negative 04/02/20 24 1:17 PM EDT [facility] (CLIA #:[id number]) Comment: NEGATIVE TEST RESULT. A negative Cologuard result indicates a low likelihood that a colorectal cancer (CRC) or advanced adenoma (adenomatous polyps with more advanced pre-malignant features) ??is present. The chance that a person with a negative Cologuard test has a colorectal cancer is less than 1 in 1500 (negative predictive value >99.9%) or has an ??advanced adenoma is less than ??5.3% (negative predictive value 94.7%). These data are based on a prospective cross-sectional study of 10,000 individuals at average risk for colorectal cancer who were screened with both Cologuard and colonoscopy. (Yoko Gomez et al, N Engl J Med 2014;370(14):1286- 1297) The normal value (reference range) for this assay is negative. COLOGUARD RE-SCREENING RECOMMENDATION: Periodic colorectal cancer screening is an important part of preventive healthcare for asymptomatic individuals at average risk for colorectal cancer. ??Following a negative Cologuard result, the [place] [employer] Society and U.S. Multi-Society Task Force screening guidelines recommend a Cologuard re-screening interval of 3 years. References: [place] [employer] Guideline for Colorectal Cancer Screening: https://www.cancer.org/cancer/beqou-pldmfr-ookmwi/oxwtvjmha-llvxgammp-rxymsuk/ac s-rec ommendations.html.; Rayshawn DK, Cruzito CR, Elyssa MCMULLEN, Colorectal Cancer Screening: Recommendations for Physicians and Patients from the U.S. Multi-Society Task Force on Colorectal Cancer Screening , Am J Gastroenterology 2017; 112:1317-8248. TEST DESCRIPTION: Composite algorithmic analysis of stool DNA-biomarkers with hemoglobin immunoassay. ?? Quantitative values of individual biomarkers are not reportable and are not associated with individual biomarker result reference ranges. Cologuard is intended for colorectal cancer screening of adults of either sex, 45 years or older, who are at average-risk for colorectal cancer (CRC). Cologuard has been approved for use by the U.S. FDA. The performance of Cologuard was established in a cross sectional study of average-risk adults aged 50-84. Cologuard performance in patients ages 45 to 49 years was estimated by sub-group analysis of near-age groups. Colonoscopies performed for a positive result may find as the most clinically significant lesion: colorectal cancer [4.0%], advanced adenoma (including sessile serrated polyps greater than or equal to 1cm diameter) [20%] or non- advanced adenoma [31%]; or no colorectal neoplasia [45%]. These estimates are derived from a prospective cross-sectional screening study of 10,000 individuals at average risk for colorectal cancer who were screened with both Cologuard and colonoscopy. (Yoko Grace. et al, N Engl J Med 2014;370(14):0037-4134.) Cologuard may produce a false negative or false positive result (no colorectal cancer or precancerous polyp present at colonoscopy follow up). A negative Cologuard test result does not guarantee the absence of CRC or advanced adenoma (pre-cancer). The current Cologuard screening interval is every 3 years. ([place] Cancer Society and U.S. Multi-Society Task Force). Cologuard performance data in a 10,000 patient pivotal study using colonoscopy as the reference method can be accessed at the following location: www.[employer].Qual Canal/results. Additional description of the Cologuard test process, warnings and precautions can be found at www.[employer].com. Stool specimen (specimen) 03/28/2024 7:56 PM EDT 03/30/2024 9:45 AM EDT us Thevenin Beauzile MD LAB MOLECULAR DIAGNOSTICS O RDERABLES Final Result [facility] (CLIA #:[id number]) [address] [place] [address], documented in this encounter Visit Diagnoses Diagnosis Screening for colon cancer- Primary Special screening for malignant neoplasms, colon documented in this encounter Care Teams Glass Science Engineer Relationship Specialty Start Date End Date Walter Aiken MD [address] [place] [id number] PCP - General Internal Medicine 04/05/14 [employer] 08/20/22 documented as of this encounter
--- OUTSIDE RECORDS SUMMARY | 2024-09-06 19:44 | XMS_ITS | Encounter Summary ---
Author Organization [employer] Address [address] [facility] 7t [place] [address] Care Team Providers Care Creative Recruiter Name Role Phone Walter Aiken MD Primary Care Provider [phone] Reason for Visit * Reason Onset Date Comments Created In Error 04/07/2024 Encounter Details Date Type Department Care Team ([facility] st Contact Info) Description 04/07/2024 Telephone [facility] MEDICINE [address] [place] [address] Walter Aiken MD [address] [facility] [place] [id number] Created In Error Social History Tobacco Use Types Packs/Day Years [...] on file documented as of this encounter Visit Diagnoses Not on filedocumented in this encounter Care Teams Creative Recruiter Relationship Specialty Start Date End Date Walter Aiken MD [address] [place] [id number] PCP - General Internal Medicine 04/05/14 [email or web address] 08/20/22 documented as of this encounter
--- OUTSIDE RECORDS SUMMARY | 2024-09-06 19:44 | XMS_ITS | Encounter Summary ---
Author Organization [employer] Address [address] [facility] 7t [place] [address] Care Team Providers Care Marketing Administrative Assistant Name Role Phone Walter Aiken MD Primary Care Provider [phone] Encounter Details Date Type Department Care Team ([facility] st Contact Info) Description 09/18/2022 Orders Only [facility] CHC MED & PEDS [address] [facility] [place] [id number] Walter Aiken MD [address] [place] [address] Social History Tobacco Use Types Packs/Day Years Used Date Smoking Tobacco: Never Assessed Comments Unknown Sex and Gender Information Value [...] on filedocumented in this encounter Care Teams Marketing Administrative Assistant Relationship Specialty Start Date End Date Walter Aiken MD [address] [place] [address] PCP - General Internal Medicine 04/05/14 [employer] 08/20/22 documented as of this encounter
--- OUTSIDE RECORDS SUMMARY | 2024-09-06 19:44 | XMS_ITS | Encounter Summary ---
Author Organization [employer] Address [address] [facility] 7t [place] [address] Care Team Providers Care Flare Maker Name Role Phone Walter Aiken MD Primary Care Provider [phone] Reason for Visit * Reason Onset Date Comments PT-1 03/09/2024 Encounter Details Date Type Department Care Team (Late st Contact Info) Description 03/09/2024 Telephone [facility] [address] [place] [address] Walter Aiken MD [address] [facility] [place] [id number] PT-1 Social History Tobacco Use Types Packs/Day Years [...] AM EDT documented as of this encounter Miscellaneous Notes * Telephone Encounter - Cliff Perez - 03/09/2024 9:36 AM EDT Patient calling requesting PT1 Home Address verified: Y/N: Yes Provider name or facility name: [facility] Facility Address: [address] [place] [address] Escort needed: Y/N: No Do you have a wheelchair: Y/N: No If yes- Manual or electric: no Visits: 6 documented in this encounter Plan of Treatment Not on file documented as of this encounter Visit Diagnoses Not on filedocumented in this encounter Care Teams Flare Maker Relationship Specialty Start Date End Date Walter Aiken MD [address] [place] [id number] PCP - General Internal Medicine 04/05/14 [employer] 08/20/22 documented as of this encounter
--- OUTSIDE RECORDS SUMMARY | 2024-09-06 19:44 | XMS_ITS | Encounter Summary ---
Author Organization [employer] Address [address] [facility] 7t [place] [address] Care Team Providers Care Dry Food Products Mixer Name Role Phone Walter Aiken MD Primary Care Provider [phone] Reason for Referral * Imaging (Routine) - Authorized Specialty Diagnoses / Procedures Referred By Myra aguilera Referred To Contact Radiology Diagnoses Chronic tension-type headache, not intractable Procedures CT Head w/o Contrast Walter Aiken MD [address] [place] [address] Phone: tel: fax: [address] Phone: tel: fax: Referral ID Status Reason Start Date Expiration Date V isits Requested Visits Authorized [id number] Authorized 07/28/2024 07/28/2025 1 1 * Consultation (Routine) - Authorized Specialty Diagnoses / Procedures Referred By Myra aguilera Referred To Contact Pharmacy Diagnoses Uncontrolled diabetes mellitus of other type with hypoglycemia, unspecified hypoglycemia coma status (CMS/HCC) Walter Aiken MD [address] [place] [address] Phone: tel: fax: Referral ID Status Reason Start Date Expiration Date Visits Requested Visits Authorized [id number] Authorized Consult and Treat 07/27/2024 07/27/2025 6 6 Encounter Details Date Type Department Care Team (Late st Contact Info) Description 07/27/2024 Orders Only [facility] CHC MED & PEDS [address] [place] [address] Walter Aiken MD [address] [place] [address] Controlled type 2 diabetes mellitus with hyperglycemia, with long-term current use of insulin ([facility]) (Primary Dx); Uncontrolled diabetes mellitus of other type with hypoglycemia, unspecified hypoglycemia coma status ([facility]); Chronic tension-type headache, not intractable Social History Tobacco Use Types Packs/Day Years [...] Routine Chronic tension-type headache, not intractable Expected: 07/28/2024, Expires: 07/28/2025 Scheduled Referrals Name Type Priority Associated Diagnoses Orde r Schedule Referral to Pharmacy CDTM Outpatient Referral Routine Uncontrolled diabetes mellitus of other type with hypoglycemia, unspecified hypoglycemia coma status ([facility]) Ordered: 07/27/2024 documented as of this encounter Visit Diagnoses Diagnosis Controlled type 2 diabetes mellitus with hyperglycemia, with long-term current use of insulin ([facility])- Primary Uncontrolled diabetes mellitus of other type with hypoglycemia, unspecified hypoglycemia coma status ([facility]) Chronic tension-type headache, not intractable Chronic tension type headache documented in this encounter Care Teams Dry Food Products Mixer Relationship Specialty Start Date End Date Walter Aikne MD [address] [place] [address] PCP - General Internal Medicine 04/05/14 [employer] [facility] 08/20/22 documented as of this encounter
--- OUTSIDE RECORDS SUMMARY | 2024-09-06 19:44 | XMS_ITS | Encounter Summary ---
Author Organization [employer] Address 75 [facility] 7t [place] [address] Care Team Providers Care Vp Product Management Name Role Phone Walter Aiken MD Primary Care Provider [phone] Reason for Visit * Reason Onset Date Comments Med Refill 11/09/2023 Encounter Details Date Type Department Care Team (Late st Contact Info) Description 11/09/2023 Telephone [facility] MEDICINE [address] [place] [address] Walter Aiken MD 505 [facility] [place] [id number] Med Refill Social History Tobacco Use Types Packs/Day Years Used Date Smoking Tobacco: Every Day Cigarettes 0.3 7 Smokeless Tobacco: Never Housing Stability Answer Date [...] encounter Miscellaneous Notes * Telephone Encounter - Sumaya Way - 11/09/2023 12:08 PM EDT TC from pt requesting medication refill. Medications needing refill : mirtazapine (Remeron SolTab) 15 MG disintegrating tablet To be sent to: [id number] - [place], [place] - [address] [facility] documented in this encounter Plan of Treatment Not on file documented as of this encounter Visit Diagnoses Not on filedocumented in this encounter Care Teams Vp Product Management Relationship Specialty Start Date End Date Walter Aiken MD [address] [place] [address] PCP - General Internal Medicine 04/05/14 [employer] 08/20/22 documented as of this encounter
--- OUTSIDE RECORDS SUMMARY | 2024-09-06 19:44 | XMS_ITS | Encounter Summary ---
Author Organization [employer] Address 75 [facility] 7t [place] [address] Care Team Providers Care Manganese Breaker Name Role Phone Walter Aiken MD Primary Care Provider [phone] Reason for Visit * Reason Onset Date Comments Nurse Triage 09/16/2023 Encounter Details Date Type Department Care Team ([facility] st Contact Info) Description 09/16/2023 Telephone [facility] MED & PEDS 505 [facility] [place] [address] Walter Aiken MD 505 [place] [address] Nurse Triage Social History Tobacco Use Types Packs/Day Years [...] encounter Miscellaneous Notes * Telephone Encounter - Keara John RN - 09/16/2023 2:47 PM EDT Triage call Pt reports pain in left foot from standing all day. Pt reports it was burned but, machine sign writer unable to understand how that happened. Pt reports a fan that was running all day? . Pt reportsthe foot had some swelling which has decreased since this happened 2 weeks ago. Pt is diabetic and no apt available in [facility] . Pt is advised to come to [facility] today open till 800pm. Pt reports may come tomorrow instead and hours given 830am-400pm. Pt reports will go tomorrow when ride available. Pt agrees with disposition. Pt insurance is verified as active. Protocol Used: Foot Pain (Adult) Protocol-Based Disposition: See in Office or Video Visit within 3 Days Video visit not offered Positive Triage Questions: * Moderate pain (e.g., interferes with normal activities, limping) and present > 3 days * Patient wants to be seen * All higher-acuity triage questions were negative Care Advice Discussed: * Reassurance and Education - Foot Pain * Foot Pain - Aggravating Factors * Pain Medicines * Reasons To Call Back - Swelling, redness, or fever occur - Severe pain not relieved by pain medicine - Pain lasts over 7 days - You become worse * Telephone Encounter - Edison Bennett - 09/16/2023 2:16 PM EDT Symptoms: Foot or Ankle Pain - Not From Injury, Ear Itching - No Rash Outcome: Schedule an urgent appointment (within 1 hour) or talk to a nurse or provider soon Reason: Trouble walking The caller accepted this outcome Please contact pt @ [phone] documented in this encounter Plan of Treatment Not on file documented as of this encounter Visit Diagnoses Not on filedocumented in this encounter Care Teams Manganese Breaker Relationship Specialty Start Date End Date Walter Aiken MD [address] [place] [address] PCP - General Internal Medicine 04/05/14 [employer] 08/20/22 documented as of this encounter
--- OUTSIDE RECORDS SUMMARY | 2024-09-06 19:44 | XMS_ITS | Encounter Summary ---
Author Organization [employer] Address 75 [facility] 7t [place] [address] Care Team Providers Care City Treasurer Name Role Phone Walter Aiken MD Primary Care Provider [phone] Reason for Visit * Reason Onset Date Comments Nurse Triage 09/23/2023 Encounter Details Date Type Department Care Team (Late st Contact Info) Description 09/23/2023 Telephone [facility] MEDICINE 230 [place] [address] Walter Aiken MD 505 [facility] [place] [id number] Nurse Triage Social History Tobacco Use Types [...] Telephone Encounter - Keara John RN - 09/23/2023 2:07 PM EDT Triage call Pt reports a large lump, > quarter, on right buttock. Pt reports it is painful , negfor itchiness . Pt reports this started 2 days ago and has had this before. Pt requests to be seenin [facility] . Advised no apts available in [facility] this week other than tele visits but, Pt should be seen. Pt is advised to come to [facility] Pt reports will come tomorrow. Hours given 830am - 400pm for tomorro w. Pt is given instruction as to address of facility [address] [place] [address], once in front door go to right and register at the desk. Pt agrees with disposition and home care reviewed. Insurance is verified as active . Protocol Used: Boil (Skin Abscess) (Adult) Protocol-Based Disposition: See in Office or Video Visit Today or Tomorrow Video visit not offered Positive Triage Question: * Patient wants to be seen * All higher-acuity triage questions were negative Care Advice Discussed: * Reassurance and Education - Boil * Treatment - General * Treatment for a Boil - Apply Moist Heat * Reasons To Call Back - Severe pain or fever occurs - Widespread rash occurs - You become worse * Telephone Encounter - Cliff Garza - 09/23/2023 1:44 PM EDT Symptom: Skin Lump Outcome: Schedule an urgent appointment (within 4 hours) or talk to a nurse or provider soon Reason: Red and larger than 1 inch The caller accepted this outcome documented in this encounter Plan of Treatment Not on file documented as of this encounter Visit Diagnoses Not on filedocumented in this encounter Care Teams City Treasurer Relationship Specialty Start Date End Date Walter Aiken MD [address] [place] [address] PCP - General Internal Medicine 04/05/14 [facility] [employer] 08/20/22 documented as of this encounter
--- OUTSIDE RECORDS SUMMARY | 2024-09-06 19:44 | XMS_ITS | Encounter Summary ---
Author Organization [employer] Address 75 [facility] 7t [place] [address] Care Team Providers Care Hand Leather Trimmer Name Role Phone Walter Aiken MD Primary Care Provider [phone] Encounter Details Date Type Department Care Team ([facility] st Contact Info) Description 06/23/2022 Telephone [facility] CHC MED & PEDS 505 [facility] [place] [id number] Walter Aiken MD 505 [place], [place] [phone] Social History Tobacco Use Types Packs/Day Years Used Date Smoking Tobacco: Never Assessed Comments Unknown Sex and Gender Information Value Date Recorded Sex Assigned at Female 05/05/2022 10:15 AM EDT Legal Sex Female 10:15 AM EDT Gender Identity Female 05/05/2022 10:15 AM EDT Sexual Orientation Straight 05/05/2022 10 :15 AM EDT COVID-19 Exposure Response Date Recorded In the last 10 days, have yo u been in contact with someone who was confirmed or suspected to have Coronavirus/COVID-19? No / Unsure 06/26/2022 9:42 AM EST documented as of this encounter Plan of Treatment Not on file documented as of this encounter Visit Diagnoses Not on filedocumented in this encounter Care Teams Hand Leather Trimmer Relationship Specialty Start Date End Date Walter Aiken MD 505 [place] [address] PCP - General Internal Medicine 04/05/14 [employer] 08/20/22 documented as of this encounter
--- OUTSIDE RECORDS SUMMARY | 2024-09-06 19:44 | XMS_ITS | Encounter Summary ---
Author Organization [employer] Address 75 [facility] 7 [place] [address] Care Team Providers Care Investment Trader Name Role Phone Walter Aiken MD Primary Care Provider [phone] Reason for Visit * Reason Onset Date Comments HDF 08/20/23 08/20/2023 Encounter Details Date Type Department Care Team ([facility] st Contact Info) Description 08/20/2023 Telephone [facility] MEDICINE 230 [place] [address] Walter Aiken MD 505 [place] [id number] F 08/20/23 Social History Tobacco Use Types Packs/Day Years [...] encounter Miscellaneous Notes * Telephone Encounter - Hawa Cox RN - 08/21/2023 3:41 PM EST TC returned to patient at all three numbers listed plus variation in main number below. Unable to reach patient or leave VM (two messages that mailboxes were full). Also tried sister's number and that number was disconnected. Routing back to [facility] nurses to try next week. Tc from pt requesting to reschedule today's HDF 08/20. Pt stated PT-1 did not pick them up. Please contact pt at [phone]. * Telephone Encounter - Arvind Hines - 08/20/2023 2:57 PM EST Tc from pt requesting to reschedule today's HDF 08/20. Pt stated PT-1 did not pick them up. Please contact pt at [phone]. documented in this encounter Plan of Treatment Not on file documented as of this encounter Visit Diagnoses Not on filedocumented in this encounter Care Teams Investment Trader Relationship Specialty Start Date End Date Walter Aiken MD [address] [place] [address] PCP - General Internal Medicine 04/05/14 [employer] 08/20/22 documented as of this encounter
--- OUTSIDE RECORDS SUMMARY | 2024-09-06 19:45 | XMS_ITS | Encounter Summary ---
Author Organization [employer] Address 75 [facility] 7 [place] [address] Care Team Providers Care Trades Helper Name Role Phone Walter Aiken MD Primary Care Provider [phone] Reason for Visit * Reason Onset Date Comments Durable Medical Equipment 03/11/2023 Encounter Details Date Type Department Care Team ([facility] st Contact Info) Description 03/11/2023 Telephone [facility] CHC MED & PEDS 505 [facility] [place] [address] Walter Aiken MD 505 [place] [address] Durable Medical Equipment Social History Tobacco Use Types Packs/Day Years Used Date Smoking Tobacco: Every Day Cigarettes 0.3 7 Smokeless Tobacco: Never Comments Unknown Sex and Gender Information Value Date Recorded Sex Assigned at Female 05/05/2022 10:15 AM EDT Legal Sex Female 10:15 AM EDT Gender Identity Female 05/05/2022 10:15 AM EDT Sexual Orientation Straight 05/05/2022 10 :15 AM EDT documented as of this encounter Miscellaneous Notes * Telephone Encounter - Yesica Guajardo LPN - 03/16/2023 12:28 PM EDT Cvt Tech called pt regarding PCP message below. No answer Vm to return call. Forward to Vt for scheduling pt to discuss DME need. * Telephone Encounter - Walter Aiken MD - 03/16/2023 12:14 PM EDT Please find out what would be the indication of the shower chair and walker. Ideally I should see Ms Blank Rosas to prescribe these DMEs. * Telephone Encounter - eYsica Guajardo LPN - 03/11/2023 11:49 AM EDT Please read message below and advise. Pt will need addendum or notes for DME request * Telephone Encounter - Bernadette Stock - 03/11/2023 10:48 AM EDT Tc from patient requesting a new script for a shower chair and a walker. documented in this encounter Plan of Treatment Not on file documented as of this encounter Visit Diagnoses Not on filedocumented in this encounter Care Teams Trades Helper Relationship Specialty Start Date End Date Walter Aiken MD [address] [place] [address] PCP - General Internal Medicine 04/05/14 [employer] 08/20/22 documented as of this encounter
--- OUTSIDE RECORDS SUMMARY | 2024-09-06 19:45 | XMS_ITS | Encounter Summary ---
Author Organization [employer] Address 75 [facility] 7t [place] [address] Care Team Providers Care Loader Name Role Phone Walter Aiken MD Primary Care Provider [phone] Reason for Visit * Reason Onset Date Comments Appointment Request 07/30/2023 Encounter Details Date Type Department Care Team ([facility] st Contact Info) Description 07/30/2023 Telephone [facility] MEDICINE 230 [place] [address] Walter Aiken MD 505 [facility] [place] [phone] Appointment Request Social History Tobacco Use Types Packs/Day Years [...] Telephone Encounter - Hawa Cox RN - 07/30/2023 2:39 PM EST TC placed to patient at all three listed numbers. Main number has message saying it is not working.Second number has a message with another person's name. Left VM at third number ([phone]) to call us back. Patient has recall in system for follow up with Dr. Aiken in July. Routing back to [facility] nurses to try again. Tc from patient requesting a follow up appt states need to speak with PCP in regards to the x-ray findings * Telephone Encounter - Cliff Greg - 07/30/2023 11:59 AM EST Tc from patient requesting a follow up appt states need to speak with PCP in regards to the x-ray findings documented in this encounter Plan of Treatment Not on file documented as of this encounter Visit Diagnoses Not on filedocumented in this encounter Care Teams Loader Relationship Specialty Start Date End Date Walter Aiken MD [address] [place] [address] PCP - General Internal Medicine 04/05/14 [employer] 08/20/22 documented as of this encounter
--- OUTSIDE RECORDS SUMMARY | 2024-09-06 19:45 | XMS_ITS | Encounter Summary ---
Author Organization [email or web address] Address 75 [facility] 7t [place] [address] Care Team Providers Care Health Professional Name Role Phone Walter Aiken MD Primary Care Provider [phone] Encounter Details Date Type Department Care Team (Late st Contact Info) Description 03/03/2023 Orders Only [facility] CHC MED & PEDS 505 [facility] [place] [phone] Walter Aiken MD 505 [place] [address] Social History Tobacco Use Types Packs/Day Years [...] on filedocumented in this encounter Care Teams Health Professional Relationship Specialty Start Date End Date Walter Aiken MD 505 [place] [address] PCP - General Internal Medicine 04/05/14 [employer] 08/20/22 documented as of this encounter
--- OUTSIDE RECORDS SUMMARY | 2024-09-06 19:45 | XMS_ITS | Encounter Summary ---
Author Organization [employer] Address 75 [facility] 7 [place] [address] Care Team Providers Care Patrol Conductor Name Role Phone Walter Aiken MD Primary Care Provider [phone] Reason for Visit * Reason Onset Date Comments PT1 03/11/2023 Encounter Details Date Type Department Care Team ([facility] Contact Info) Description 03/11/2023 Telephone [facility] CHC MED & PEDS 505 [facility] [place] [address] Walter Aiken MD 505 [place], [place] [phone] PT1 Social History Tobacco Use Types Packs/Day Years [...] encounter Miscellaneous Notes * Telephone Encounter - Leyla Graves - 03/16/2023 4:05 PM EDT PT-1 submitted for patient. They will receive a letter of approval or denial in the mail. * Telephone Encounter - Bernadette Stock - 03/11/2023 10:52 AM EDT PT1 Address verified Date: 03/17/23 Time: 12 pm Visits: Address: [address] [place] [address] Facility: [facility] Wheel Chair: n/a Quality Rn Needed: no PT1 Date: 03/18/23 Time: 10:30 am Visits: Address: [address] [place] [address] Facility: Gastroenterology Wheel Chair: n/a Quality Rn Needed: no PT1 Date: 03/19/23 Time: 10:30 am Visits: Address: [address] [facility] [place] [address] Facility: Orthopedic Wheel Chair: n/a Quality Rn Needed: no documented in this encounter Plan of Treatment Not on file documented as of this encounter Visit Diagnoses Not on filedocumented in this encounter Care Teams Patrol Conductor Relationship Specialty Start Date End Date Walter Aiken MD [address] [place] [address] [place] [address] PCP - General Internal Medicine 04/05/14 [employer] 08/20/22 documented as of this encounter
--- OUTSIDE RECORDS SUMMARY | 2024-09-06 19:45 | XMS_ITS | Encounter Summary ---
Author Organization [employer] Address 75 [facility] 7 [place] [address] Care Team Providers Care Ticker Maintainer Name Role Phone Walter Aiken MD Primary Care Provider [phone] Reason for Referral * Consultation (Routine) - Authorized Specialty Diagnoses / Procedures Referred By Myra aguilera Referred To Contact Behavioral Health Diagnoses Difficulty coping with disease Walter Aiken MD [address] [place] [address] [address] Phone: tel: fax: Referral ID Status Reason Start Date Expiration Date Visits Requested Visits Authorized [id number] Authorized Specialty Services Required 09/06/2024 09/06/2025 1 1 * Consultation (Routine) - Authorized Specialty Diagnoses / Procedures Referred By Myra aguilera Referred To Contact Pharmacy Diagnoses Controlled type 2 diabetes mellitus with hyperglycemia, with long-term current use of insulin ([facility]) Walter Aiken MD [address] [place] [address] Phone: tel: fax: Referral ID Status Reason Start Date Expiration Date Visits Requested Visits Authorized [id number] Authorized Consult and Treat 09/06/2024 09/06/2025 6 6 * Consultation (Routine) - Pending Review Specialty Diagnoses / Procedures Referred By Myra aguilera Referred To Contact Wound Care Diagnoses Skin ulcer of left lower leg, limited to breakdown of skin ([facility]) Walter Aiken MD [address] [place] [address] Phone: tel: fax: Referral ID Status Reason Start Date Expiration Date Visits Requested Visits Authorized [id number] Pending Review Specialty Services Required 09/06/2024 09/06/2025 1 1 Reason for Visit * Reason Comments Headache Encounter Details Date Type Department Care Team ([facility] Contact Info) Description 09/06/2024 3:15 PM EST Office Visit [facility] MED & PEDS 505 [place] [address] Walter Aiken MD [address] [place] [address] Memory disturbance (Primary Dx); Primary hypertension; Chronic tension-type headache, not intractable; Skin ulcer of left lower leg, limited to breakdown of skin (CMS/HCC); Controlled type 2 diabetes mellitus with hyperglycemia, with long-term current use of insulin (CMS/HCC); Other fatigue; Difficulty coping with disease; Other constipation Social History Tobacco Use Types Packs/Day Years Used Date Smoking Tobacco: Every Day Cigarettes 0.3 7 Passive Smoke Exposure: Current Smokeless Tobacco: Never Depression Answer Date Recorded Patient Health Questionnaire-9 Score 13 09/06/2024 Patient Health Questionnaire-9 Score 13 09/06/2024 Last PHQ-9: Questionnaire Data Not on file 0 09/06/2024 Housing Stability Answer Date Recorded What is your housing situation today? I have iain darius 09/06/[address] you li ve. Do you have problems with any of the following? None of the above 09/06/2024 Food Insecurity Answer Date Recorded Within the past 12 months, y ou worried that your food would run out before you got money to buy more: Never True 09/06/2024 Within the past 12 months,th e food you bought just didn't last and you didn't have enough money to get more: Never True 10/2024 Transportation Answer Date Recorded In the past 12 months, has l ack of transportation kept you from medical appts, meetings, work or from getting things needed for daily living? No 09/06/2024 Utilities Answer Date Recorded In the past 12 months, has t he electric, gas, oil or water company threatened to shut off services in your home? No 09/06/2024 Depression Answer Date Recorded Patient Health Questionnaire-2 Score 3 09/06/2024 Internet Access Answer Date Recorded Internet Access Q1 Yes 09/06/2024 Internet Access Q2 Not on file 09/06/2024 Comments Unknown Sex and Gender Information Value Date Recorded Sex Assigned at Female 05/05/2022 10:15 AM EDT Legal Sex Female 10:15 AM EDT Gender Identity Female 05/05/2022 10:15 AM EDT Sexual Orientation Straight 05/05/2022 10 :15 AM EDT documented as of this encounter Last Filed Vital Signs Vital Sign Reading Time Taken Comments Blood Pressure 131/68 09/06/2024 2:17 PM EST Pulse 76 09/06/2024 2:17 PM EST Temperature - - Respiratory Rate 20 09/06/2024 2:17 PM EST Oxygen Saturation 96% 09/06/2024 2:17 PM EST Inhaled Oxygen Concentration - - Weight 60.3 kg (133 lb) 09/06/2024 2:17 PM EST Height 149.9 cm (4' 11 ) 09/06/2024 2:17 PM EST Body Mass Index 26.86 09/06/2024 2:17 PM EST documented in this encounter Plan of Treatment Scheduled Referrals Name Type Priority Associated Diagnoses Order Schedule Referral to Wound Clinic Outpatient Referral Routine Skin ulcer of left lower leg, limited to breakdown of skin ([facility]) Expected: 09/06/2024 (Approximate), Expires: 09/06/2025 Referral to Pharmacy CD Outpatient Referral Routine Controlled type 2 diabetes mellitus with hyperglycemia, with long-term current use of insulin ([facility]) Ordered: 09/06/2024 Referral to Behavioral Health Outpatient Referral Routine Difficulty coping with disease Expected: 09/06/2024 (Approximate), Expires: 09/06/2025 documented as of this encounter Procedures Procedure Name Priority Date/Time Associated Diagnosis Comments POCT GLUCOSE Routine 09/06/2024 3:26 PM EST Controlled type 2 diabetes mellitus with hyperglycemia, with long-term current use of insulin ([facility]) POCT GLYCATED HEMOGLOBIN, TOTAL Routine 09/06/2024 3:25 PM EST Controlled type 2 diabetes mellitus with hyperglycemia, with long-term current use of insulin ([facility]) documented in this encounter Results * POCT Glucose (09/06/2024 3:26 PM EST) Glucose Blood, POC 129 60 - 200 mg/dL QC Media Lot # [id number] Lot# Expiration Date 732,025 Comment:random Blood Capillary blood specimen / Unknown 09/06/2024 3:26 PM EST us Walter Aiken MD POINT OF CARE TEST ENTER/ED IT ORDERABLES Final Result * (ABNORMAL) POCT HGB A1C (09/06/2024 3:25 PM EST) Hemoglobin A1C 9.7(A) 4.0 - 6.0 % QC Media Lot # [id number] Lot# Expiration Date Blood 09/06/2024 3:25 PM EST Walter Aiken MD POINT OF CARE TEST ENTER/ED IT ORDERABLES Final Result documented in this encounter Visit Diagnoses Diagnosis Memory disturbance- Primary Memory loss Primary hypertension Unspecified essential hypertension Chronic tension-type headache, not intractable Chronic tension type headache Skin ulcer of left lower leg, limited to breakdown of skin ([facility]) Controlled type 2 diabetes mellitus with hyperglycemia, with long-term current use of insulin ([facility]) Other fatigue Difficulty coping with disease Other constipation documented in this encounter Additional Health Concerns Assessment Noted Time PHQ-9 Depression Total Score: 13 025 2:20 PM EST documented as of this encounter Care Teams Ticker Maintainer Relationship Specialty Start Date End Date Walter Aiken MD [address] [place] [address] PCP - General Internal Medicine 04/05/14 [email or web address] 08/20/22 documented as of this encounter
--- OUTSIDE RECORDS SUMMARY | 2024-09-06 19:45 | XMS_ITS | Encounter Summary ---
Author Organization [employer] Address 75 [facility] 7 [place] [address] Care Team Providers Care Security Investigator Name Role Phone Walter Aiken MD Primary Care Provider +[phone] Reason for Visit * Reason Onset Date Comments Pt1 07/10/2023 Encounter Details Date Type Department Care Team ([facility] st Contact Info) Description 07/10/2023 Telephone [facility] CHC MED & PEDS 505 [place] [address] Walter Aiken MD 505 [place] [address] Pt1 Social History Tobacco Use Types Packs/Day Years [...] * Telephone Encounter - Leyla Graves - 07/10/2023 1:53 PM EST PT-1 submitted for patient. They will receive a letter of approval or denial in the mail. * Telephone Encounter - Arvind Hines - 07/10/2023 9:30 AM EST PT1 needed Date: 07/17/23 Time: 11:30 Visits: couple of visits Address: [address] [place] [address] Facility: [facility] [address] [place] [address] Wheel Chair: No Engine Wiper Needed: No documented in this encounter Plan of Treatment Not on file documented as of this encounter Visit Diagnoses Not on filedocumented in this encounter Care Teams Security Investigator Relationship Specialty Start Date End Date Walter Aiken MD [address] [place] [address] PCP - General Internal Medicine 04/05/14 [employer] 08/20/22 documented as of this encounter
--- OUTSIDE RECORDS SUMMARY | 2024-09-06 19:45 | XMS_ITS | Encounter Summary ---
Author Organization [employer] Address 75 [facility] 7 [place] [address] Care Team Providers Care Production Machine Tender Name Role Phone Walter Aiken MD Primary Care Provider [phone]- [phone] Reason for Visit * Reason Onset Date Comments PT1 06/05/2023 Encounter Details Date Type Department Care Team ([facility] Contact Info) Description 06/05/2023 Telephone C [facility] MED & PEDS 505 [place], [place] [phone] Walter Aiken MD 505 [place], [place] [phone] PT1 Social History Tobacco Use Types Packs/Day [...] * Telephone Encounter - Leyla Graves - 06/08/2023 11:08 AM EST PT-1 submitted for patient. They will receive a letter of approval or denial in the mail. * Telephone Encounter - Fiordaliza Hernandez - 06/05/2023 1:10 PM EST Tc from pt requesting a PT1 Date: 06/11 Time: 12:20 PM Visits: n/a Address: [address] [place] [address] Facility: [facility] Wheel Chair: no Gynecological Assistant Needed: n/a Home address confirmed: [address] [place] [address] [place] JO documented in this encounter Plan of Treatment Not on file documented as of this encounter Visit Diagnoses Not on filedocumented in this encounter Care Teams Production Machine Tender Relationship Specialty Start Date End Date Walter Aiken MD [address] [place] [address] [place] [address] PCP - General Internal Medicine 04/05/14 [employer] 08/20/22 documented as of this encounter
--- OUTSIDE RECORDS SUMMARY | 2024-09-06 19:45 | XMS_ITS | Encounter Summary ---
Author Organization [employer] Address 75 [facility] 7 [place] [address] Care Team Providers Care Cyber Incident Handler Name Role Phone Walter Aiken MD Primary Care Provider [phone]- [phone] Reason for Visit * Reason Onset Date Comments Med Refill 02/03/2023 Encounter Details Date Type Department Care Team (Late st Contact Info) Description 02/03/2023 Telephone [facility] MEDICINE [address] [place] [address] Walter Aiken MD 505 [place] [address] Med Refill Social History Tobacco Use Types [...] on filedocumented in this encounter Care Teams Cyber Incident Handler Relationship Specialty Start Date End Date Walter Aiken MD 505 [place] [address] PCP - General Internal Medicine 04/05/14 [employer] 08/20/22 documented as of this encounter
--- OUTSIDE RECORDS SUMMARY | 2024-09-06 19:45 | XMS_ITS | Encounter Summary ---
Author Organization [employer] Address 75 [facility] 7 [place] [address] Care Team Providers Care Carpenter Foreman Name Role Phone Walter Aiken MD Primary Care Provider [phone]- [phone] Reason for Visit * Reason Onset Date Comments PT1 01/15/2023 Encounter Details Date Type Department Care Team ([facility] st Contact Info) Description 01/15/2023 Telephone [facility] CHC MED & PEDS 505 [place] [address] Walter Aiken MD 505 [place], [place] [phone] PT1 Social History Tobacco Use Types Packs/Day [...] * Telephone Encounter - Leyla Graves - 01/19/2023 9:19 AM EDT PT-1 submitted for patient. They will receive a letter of approval or denial in the mail. * Telephone Encounter - Bernadette Stock - 01/15/2023 3:33 PM EDT PT1- Home address verified Date: n/a Time: n/a Visits: Address: [address] [place] [address], [place] [address] Facility: [facility] Wheel Chair: n/a Appointment Setter Needed: Yes documented in this encounter Plan of Treatment Not on file documented as of this encounter Visit Diagnoses Not on filedocumented in this encounter Care Teams Carpenter Foreman Relationship Specialty Start Date End Date Walter Aiken MD [address] [place] [address] PCP - General Internal Medicine 04/05/14 [employer] 08/20/22 documented as of this encounter
--- OUTSIDE RECORDS SUMMARY | 2024-09-06 19:45 | XMS_ITS | Encounter Summary ---
Author Organization [employer] Address [address] [place] [address] 7 [place] [address] Care Team Providers Care High School Admissions Representative Name Role Phone Walter Aiken MD Primary Care Provider [phone]- [phone] Reason for Visit * Reason Onset Date Comments Pt1 06/19/2023 Encounter Details Date Type Department Care Team ([facility] st Contact Info) Description 06/19/2023 Telephone [facility] MED & PEDS 505 [place], [place] [phone] Walter Aiken MD 505 [place] [address] Pt1 Social History Tobacco Use Types Packs/Day [...] * Telephone Encounter - Leyla Graves - 06/19/2023 4:24 PM EST PT-1 submitted for patient. They will receive a letter of approval or denial in the mail. * Telephone Encounter - Arvindwero Hines - 06/19/2023 11:45 AM EST PT1 needed Date: 06/23/23 Time: 3:30 PM Visits: (N/A) Address: [address] [place] [address] [place] DEYSI Reddy13 Facility: ([facility], Dr. Aiken) Wheel Chair: (No) Automotive Diagnostic Technician Needed: No documented in this encounter Plan of Treatment Not on file documented as of this encounter Visit Diagnoses Not on filedocumented in this encounter Care Teams High School Admissions Representative Relationship Specialty Start Date End Date Walter Aiken MD [address] [place] [address] PCP - General Internal Medicine 04/05/14 [employer] 08/20/22 documented as of this encounter
--- OUTSIDE RECORDS SUMMARY | 2024-09-06 19:45 | XMS_ITS | Encounter Summary ---
Author Organization [employer] Address 75 [facility] 7 [place] [address] Care Team Providers Care Dental Laboratory Technician Name Role Phone Walter Aiken MD Primary Care Provider [phone] Reason for Visit * Reason Onset Date Comments ER Follow-up 07/31/2023 Encounter Details Date Type Department Care Team ([facility] Contact Info) Description 07/31/2023 Telephone C [facility] MED & PEDS 505 [facility] [place] [place] [address] Walter Aiken MD 505 [place], [place] [phone] ER Follow-up Social History Tobacco Use Types Packs/Day Years [...] encounter Miscellaneous Notes * Telephone Encounter - Edison Bennett - 07/31/2023 3:33 PM EST Patient calling to report ED visit on : Date: 07/31/23 Hospital: [facility] Seen for: Trouble with Lungs Patient advised will forward to team nurse for follow up Please contact pt @ [phone] documented in this encounter Plan of Treatment Not on file documented as of this encounter Visit Diagnoses Not on filedocumented in this encounter Care Teams Dental Laboratory Technician Relationship Specialty Start Date End Date Walter Aiken MD [address] [place] [address] PCP - General Internal Medicine 04/05/14 [employer] 08/20/22 documented as of this encounter
--- OUTSIDE RECORDS SUMMARY | 2024-09-06 19:45 | XMS_ITS | Encounter Summary ---
Author Organization [email or web address] Address 75 [facility] 7t [place] [address] Care Team Providers Care Jet Pilot Name Role Phone Walter Aiken MD Primary Care Provider [phone] Reason for Visit * Reason Comments Med Refill Encounter Details Date Type Department Care Team ([facility] st Contact Info) Description 03/17/2024 Refill [facility] CHC MED & PEDS 505 [place] [address] Walter Aiken MD 505 [place] [address] Social History Tobacco Use Types Packs/Day Years [...] on filedocumented in this encounter Care Teams Jet Pilot Relationship Specialty Start Date End Date Walter Aiken MD [address] [place] [address] PCP - General Internal Medicine 04/05/14 [employer] 08/20/22 documented as of this encounter
--- OUTSIDE RECORDS SUMMARY | 2024-09-06 19:45 | XMS_ITS | Encounter Summary ---
Author Organization [employer] Address 75 [facility] 7 [place] [address] Care Team Providers Care Spout Positioner Name Role Phone Walter Aiken MD Primary Care Provider +1- [phone] Reason for Visit * Reason Onset Date Comments PT1 06/05/2022 Encounter Details Date Type Department Care Team ([facility] Contact Info) Description 06/05/2022 Telephone C [facility] MED & PEDS 505 [place] [address] Walter Aiken MD 505 [place], [place] [phone] PT1 Social History Tobacco Use Types Packs/Day Years Used Date Smoking Tobacco: Never Assessed Comments Unknown Sex and Gender Information Value Date Recorded Sex Assigned at Female 05/05/2022 10:15 AM EDT Legal Sex Female 10:15 AM EDT Gender Identity Female 05/05/2022 10:15 AM EDT Sexual Orientation Straight 05/05/2022 10 :15 AM EDT documented as of this encounter Miscellaneous Notes * Telephone Encounter - Ghada Meehan - 06/05/2022 12:34 PM EST TC from patient requesting a PT1 505 [place] [address] Aiken 06/10/22 at 1:30pm Live Truck Technician: No Wheelchair: No documented in this encounter Plan of Treatment Not on file documented as of this encounter Visit Diagnoses Not on filedocumented in this encounter Care Teams Spout Positioner Relationship Specialty Start Date End Date Walter Aiken MD 505 [facility] [place] [address] PCP - General Internal Medicine 04/05/14 [facility] [employer] 08/20/22 documented as of this encounter
--- OUTSIDE RECORDS SUMMARY | 2024-09-06 19:45 | XMS_ITS | Encounter Summary ---
Author Organization [employer] Address 75 [facility] 7t [place] [address] Care Team Providers Care Sheet Metal Supervisor Name Role Phone Walter Aiken MD Primary Care Provider [phone] Reason for Visit * Reason Onset Date Comments Nurse Triage 01/12/2024 Encounter Details Date Type Department Care Team (Late st Contact Info) Description 01/12/2024 Telephone [facility] MEDICINE [address] [place] [address] Walter Aiken MD 505 [facility] [place] [phone] Nurse Triage Social History Tobacco Use Types [...] Telephone Encounter - Keara John RN - 01/12/2024 4:53 PM EDT Triage call Pt reports lump , size a little less than quarter, on left knee below knee cap. Pt reports has been there for 2 weeks now, very yellow in the middle, red around the edges. Pt reports it is very painful. Pt has applied warm compresses, antibiotic ointment also. Pt is requesting to see provider considers this to be possible infection. Pt didn't report area open. Advised to come to [facility] today open till 730pm. Pt reports will call a friend for a ride and come this evening. Pt agrees withdisposition and home care already implemented. Insurance is verified as active. Protocol Used: Skin Lump or Localized Swelling (Adult) Protocol-Based Disposition: See in Office or Video Visit Today Video visit not offered Positive Triage Question: * Swelling is painful to touch and no fever * All higher-acuity triage questions were negative Care Advice Discussed: * Reasons To Call Back - Fever occurs - Spreading redness occurs - Swelling becomes painful - Swelling persists over 1 week - You become worse * Telephone Encounter - Arvind Hines - 01/12/2024 4:40 PM EDT Symptom: Skin Lump Outcome: Schedule an urgent appointment (within 4 hours) or talk to a nurse or provider soon Reason: Growing rapidly documented in this encounter Plan of Treatment Not on file documented as of this encounter Visit Diagnoses Not on filedocumented in this encounter Care Teams Sheet Metal Supervisor Relationship Specialty Start Date End Date Walter Aiken MD [address] [place] [address] PCP - General Internal Medicine 04/05/14 [employer] 08/20/22 documented as of this encounter
--- OUTSIDE RECORDS SUMMARY | 2024-09-06 19:45 | XMS_ITS | Encounter Summary ---
Author Organization [employer] Address 75 [facility] 7t [place] [address] Care Team Providers Care Filtering Machine Tender Helper Name Role Phone Walter Aiken MD Primary Care Provider [phone] Reason for Visit * Reason Onset Date Comments Med Refill 03/23/2024 Encounter Details Date Type Department Care Team (Late st Contact Info) Description 03/23/2024 Telephone [facility] MEDICINE 230 [place] [address] Walter Aiken MD 505 [facility] [place] [phone] Med Refill Social History Tobacco Use Types [...] encounter Miscellaneous Notes * Telephone Encounter - Anisha Hein LPN - 03/23/2024 10:53 AM EDT Medication pended to PCP. * Telephone Encounter - Cliff Garza - 03/23/2024 10:38 AM EDT TC from pt requesting medication refill. Medications needing refill : ibuprofen 600 MG tablet To be sent to: [id number] - [place], [place] - [address] [place] [address] [facility] documented in this encounter Plan of Treatment Not on file documented as of this encounter Visit Diagnoses Not on filedocumented in this encounter Care Teams Filtering Machine Tender Helper Relationship Specialty Start Date End Date Walter Aiken MD [address] [place] [address] [place] [address] PCP - General Internal Medicine 04/05/14 [email or web address] 08/20/22 documented as of this encounter
--- OUTSIDE RECORDS SUMMARY | 2024-09-06 19:45 | XMS_ITS | Encounter Summary ---
Author Organization [employer] Address 75 [facility] 7 [place] [address] Care Team Providers Care Foot And Ankle Surgeon Name Role Phone Walter Aiken MD Primary Care Provider +[phone] Reason for Visit * Reason Onset Date Comments FYI 07/14/2023 Encounter Details Date Type Department Care Team (Late st Contact Info) Description 07/14/2023 Telephone [facility] MEDICINE 230 [place] [address] Walter Aiken MD 505 [facility] [place] [phone] FYI Social History Tobacco Use Types Packs/Day Years [...] Miscellaneous Notes * Telephone Encounter - Cliff Garza - 07/14/2023 2:05 PM EST Tc jihan Avery from [facility] calling to inform the PCP that they wasthe agency that was assigned to the patient and as of the week of 07/07 was not been able to get a hold of the patient and has went numerous time to the patients residence now came to the conclusion they will not be admitting this patient. documented in this encounter Plan of Treatment Not on file documented as of this encounter Visit Diagnoses Not on filedocumented in this encounter Care Teams Foot And Ankle Surgeon Relationship Specialty Start Date End Date Walter Aiken MD [address] [place] [address] PCP - General Internal Medicine 04/05/14 [employer] 08/20/22 documented as of this encounter
--- OUTSIDE RECORDS SUMMARY | 2024-09-06 19:45 | XMS_ITS | Encounter Summary ---
Author Organization [employer] Address 75 [facility] 7t [place] [address] Care Team Providers Care Incident Handler Name Role Phone Walter Aiken MD Primary Care Provider [phone] Reason for Visit * Reason Comments Med Refill Encounter Details Date Type Department Care Team ([facility] st Contact Info) Description 08/18/2024 Refill C [facility] MED [facility] PEDS 505 [facility] [place] [address] Walter Aiken MD 505 [place] [address] Chronic pain syndrome Social History Tobacco Use Types Packs/Day Years [...] of this encounter Visit Diagnoses Diagnosis Chronic pain syndrome documented in this encounter Care Teams Incident Handler Relationship Specialty Start Date End Date Walter Aiken MD [address] [place] [address] PCP - General Internal Medicine 04/05/14 [employer] 08/20/22 documented as of this encounter
--- OUTSIDE RECORDS SUMMARY | 2024-09-06 19:45 | XMS_ITS | Encounter Summary ---
Author Organization [employer] Address 75 [facility] 7t [place] [address] Care Team Providers Care Auto Parts Handler Name Role Phone Walter Aiken MD Primary Care Provider [phone] Encounter Details Date Type Department Care Team (Latest Contact Info) Description 09/06/2024 Travel Social History Tobacco Use Types Packs/Day Years Used Date Smoking Tobacco: Every Day Cigarettes 0.3 7 Passive Smoke Exposure: Current Smokeless Tobacco: Never Depression Answer Date Recorded Patient Health Questionnaire-9 Score 13 09/06/2024 Patient Health Questionnaire-9 Score 13 09/06/2024 Last PHQ-9: Questionnaire Data Not on file 0 09/06/2024 Housing Stability Answer Date Recorded What is your housing situation today? I have iainaubrie mccoy 09/06/[address] you li [...] Diagnoses Not on filedocumented in this encounter Additional Health Concerns Assessment Noted Time PHQ-9 Depression Total Score: 13 09/06/ 025 2:20 PM EST documented as of this encounter Care Teams Auto Parts Handler Relationship Specialty Start Date End Date Walter Aiken MD [address] [place] [address] PCP - General Internal Medicine 04/05/14 [employer] 08/20/22 documented as of this encounter
--- OUTSIDE RECORDS SUMMARY | 2024-09-06 19:45 | XMS_ITS | Encounter Summary ---
Author Organization [employer] Address 75 [facility] 7t [place] [address] Care Team Providers Care Computer Project Manager Name Role Phone Walter Aiken MD Primary Care Provider [phone] Reason for Visit * Reason Onset Date Comments Nurse Triage 08/26/2024 Encounter Details Date Type Department Care Team (Late st Contact Info) Description 08/26/2024 Telephone [facility] MEDICINE 230 [place] [address] Walter Aiken MD 505 [facility] [place] [phone] Nurse Triage Social History Tobacco Use Types [...] encounter Miscellaneous Notes * Telephone Encounter - Kaitlynn Washington RN - 08/26/2024 4:34 PM EST Call attempted x 2. Call goes directly to . Left VM to return call to [facility] triage line [phone] * Telephone Encounter - Sharif Yo - 08/26/2024 4:30 PM EST Symptom: Breast Symptoms / breast pain Outcome: Schedule an appointment to be seen within 24 hours Reason: Caller denied all higher acuity questions The caller accepted this outcome. documented in this encounter Plan of Treatment Not on file documented as of this encounter Visit Diagnoses Not on filedocumented in this encounter Care Teams Computer Project Manager Relationship Specialty Start Date End Date Walter Aiken MD [address] [place] [address] PCP - General Internal Medicine 04/05/14 [employer] 08/20/22 documented as of this encounter
--- OUTSIDE RECORDS SUMMARY | 2024-09-06 19:45 | XMS_ITS | Clinical Summary ---
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 cloNIDine (Catapres) 0.1 MG tablet take 1 tab. 2x a day 022 Active glucose-vitamin C 4-6 GM-MG oral gel 1 tab to take in case of hypoglycemia ( FS<70 mg/dl) Active methadone (Dolophine) 10 MG/ML solution Take 3 mL by mouth every 8 (eight) hours. Active Minoxidil 5 % solution Apply 1 mL topically every 12 (twelve) hours. 022 Active simethicone (Mylicon,Gas-X) 125 MG capsule take 1 tablet by oral route 3 times every day 022 Active sucralfate (Carafate) 1 g tablet Take 1 tablet by mouth every 6 (six) hours. 020 Active Misc. Devices (Rollator Ultra-Light) misc Ac tive Incontinence Supply Disposable (RA Boxers Men Med Absorbancy) misc Active Blood Glucose Monitoring Suppl (FreeStyle Lite) w/Device kitIndications:Co ntrolled type 2 diabetes mellitus with hyperglycemia, without long-term current use of insulin (CMS/HCC) USE DIRECTED TO TEST BLOOD SUGAR FOUR TIMES DAILY 1 kit 023 Active lidocaine-priloca ine (Emla) 2.5-2.5 % creamIndications: Low back pain of multiple sites of spine with sciatica APPLY TOPICALLY TO THE AFFECTED AREA DAILY NEEDED FOR MILD PAIN 30 g 1 023 Active Continuous Blood Gluc Sensor (FreeStyle Celia 2 Sensor) [facility] [place], [place] To monitor the blood glucose daily 2 each 11 023 Active Continuous Blood Gluc Domestic Violence Advocate (FreeStyle Celia 2 Arbon) device Scan sensor every 8 hours 1 each 023 Active ketoconazole (Nizoral) 2 % shampooIndication s:Dandruff in adult Apply topically 2 (two) times a week. 120 mL 3 023 Active Diclofenac Sodium 1 % gelIndications:Ch ronic pain of left knee To apply to the affected area 2 times a day 100 g 023 Active docusate sodium (Colace) 100 MG capsule TAKE 1 CAPSULE BY MOUTH DAILY 90 capsule 3 024 Active omeprazole (PriLOSEC) [address] capsule TAKE 1 CAPSULE BY MOUTH EVERY DAY IN THE MORNING BEFORE A MEAL 30 capsule 11 024 Active baclofen (Lioresal) 10 MG tabletIndications :Chronic pain syndrome TAKE 1 TABLET(10 MG) BY MOUTH EVERY 8 HOURS 90 tablet 024 Active pantoprazole (ProtoNix) 40 MG EC tabletIndications :Gastroesophageal reflux disease without esophagitis TAKE 1 TABLET(40 MG) BY MOUTH EVERY DAY BEFORE BREAKFAST 90 tablet 3 024 Active FeroSul 325 (65 Fe) MG tablet TAKE 1 TABLET BY MOUTH TWICE DAILY WITH FOOD. TAKE DAILY IF IT CAUSES CONSTIPATION 60 tablet 3 Active insulin syringe-needle U-100 31G X 11/18 0.3 mL miscIndications:D iabetic ulcer of left lower leg (CMS/HCC) USE WITH INSULIN as DIRECTED 100 each 5 024 Active insulin glargine (Lantus) 100 UNIT/ML injectionIndicati ons:Diabetic ulcer of left lower leg (CMS/HCC) INJECT 30 UNITS SUBCUTANEOUSLY AT BEDTIME 15 mL 3 024 Active glucagon (Gvoke HypoPen 2-Pack) 0.5 MG/0.1ML injectionIndicati ons:Diabetic ulcer of left lower leg (CMS/HCC) Inject 0.1 mL (0.5 mg) under the skin 1 (one) time if needed for low blood sugar for up to 2 doses. 1 each 1 024 Active linaGLIPtin (Tradjenta) 5 MG tabletIndications :Diabetic ulcer of left lower leg (CMS/HCC) Take 1 tablet (5 mg) by mouth Once per day. 90 tablet 1 024 Active lisinopril-hydroC HLOROthiazide 20-12.5 MG tablet TAKE 1 TABLET BY MOUTH EVERY DAY 30 tablet 11 024 Active Diclofenac Sodium 1 % gelIndications:Ri ght buttock pain APPLY 2 GRAMS TOPICALLY TO THE AFFECTED AREA FOUR TIMES DAILY 100 g 1 024 Active FreeStyle lancetsIndication s:Controlled type 2 diabetes mellitus with hyperglycemia, with long-term current use of insulin (CMS/HCC) 1 each by Other route 4 times daily. USE FOUR TIMES DAILY 100 each 5 024 Active celecoxib (CeleBREX) 100 MG capsuleIndication s:Chronic pain syndrome TAKE 1 CAPSULE BY MOUTH EVERY 12 HOURS 30 capsule 2 024 Active glucose blood (FREESTYLE LITE) test strip USE FOUR TIMES DAILY 100 strip 024 Active gemfibrozil (Lopid) 600 MG tabletIndications :Hypercholesterol emia TAKE 1 TABLET BY MOUTH TWICE DAILY 60 tablet 3 024 Active ibuprofen 600 MG tabletIndications :Chronic pain syndrome TAKE 1 TABLET(600 MG) BY MOUTH EVERY 8 HOURS NEEDED FOR MILD PAIN OR MODERATE PAIN 90 tablet 1 024 Active mirtazapine (Remeron Sumaya-Tab) 30 MG disintegrating tabletIndications :Other insomnia DISSOLVE 1 TABLET(30 MG) ON THE TONGUE AT BEDTIME 30 tablet 3 024 Active FLUoxetine (PROzac) 20 MG capsule TAKE 2 CAPSULES BY MOUTH EVERY DAY IN THE MORNING 60 capsule 3 024 Active simvastatin (Zocor) 40 MG tabletIndications :Hypercholesterol emia TAKE 1 TABLET(40 MG) BY MOUTH AT BEDTIME 90 tablet 1 025 Active nicotine (Nicoderm CQ) 14 MG/24HR patch Place 1 patch on the skin 1 (one) time each day at the same time. 42 patch 025 Active nicotine (Nicoderm CQ) 7 MG/24HR patch Place 1 patch on the skin 1 (one) time each day at the same time. 14 patch Active nicotine polacrilex (Commit) 4 MG lozenge Dissolve 1 lozenge (4 mg) in the mouth every 2 (two) hours if needed for smoking cessation. 100 lozenge Active Blood Pressure kit 1 each 2 times daily. 1 kit 025 2025 Active naloxone (Narcan) 4 mg/0.1 mL nasal spray Administer 1 spray (4 mg) into affected nostril(s) if needed for opioid reversal. May repeat every 2-3 minutes if needed, alternating nostrils, until medical assistance becomes available. 2 each 025 2025 Active naloxone (Narcan) 4 mg/0.1 mL nasal spray Administer 1 spray (4 mg) into affected nostril(s) if needed for opioid reversal. 2 each 2 Active metFORMIN (Glucophage) 1000 MG tablet TAKE 1 TABLET BY MOUTH TWICE DAILY 60 tablet 11 Active baclofen (Lioresal) 10 MG tabletIndications :Chronic pain syndrome TAKE 1 TABLET(10 MG) BY MOUTH EVERY 8 HOURS 90 tablet Active gabapentin (Neurontin) 800 MG tablet TAKE 1 TABLET BY MOUTH THREE TIMES DAILY 90 tablet 2 Active polyethylene glycol, PEG, 3350 (Miralax) 17 g packetIndications :Other constipation Take 17 g by mouth Once per day for 10 days. 10 packet 025 2024 Active metFORMIN (Glucophage) 1000 MG tablet TAKE 1 TABLET BY MOUTH TWICE DAILY 60 tablet 11 024 2024 Discontinued gabapentin (Neurontin) 800 MG tablet TAKE 1 TABLET BY MOUTH THREE TIMES DAILY 90 tablet 2 025 2024 Discontinued baclofen (Lioresal) 10 MG tabletIndications :Chronic pain syndrome TAKE 1 TABLET(10 MG) BY MOUTH EVERY 8 HOURS 90 tablet 025 2024 Discontinued Active Problems Problem Noted Date Diagnosed Date Tobacco dependence 07/19/2024 Osteoarthritis of hip 02/05/2024 Polysubstance abuse 05/21/2022 Opioid abuse 03/23/2017 Anemia 11/10/2013 Hypercholesterolemia 11/10/2013 Hypertension 11/10/2013 Abdominal pain 03/25/2012 Constipation 03/25/2012 Diabetes type 2, controlled 03/25/2012 Encounters Date Type Department Care Team Description 09/06/2024 3:15 PM EST Office Visit [facility] [address] [place] [address] Walter Aiken MD Memory disturbance (Primary Dx); Primary hypertension; Chronic tension-type headache, not intractable; Skin ulcer of left lower leg, limited to breakdown of skin ([facility]/HCC); Controlled type 2 diabetes mellitus with hyperglycemia, with long-term current use of insulin ([facility]); Other fatigue; Difficulty coping with disease; Other constipation 09/06/2024 Travel 09/05/2024 Telephone [facility] [address] [place] [address] Walter Aiken MD Chart Prep 08/26/2024 Telephone [facility] [address] [place] [address] Walter Aiken MD Nurse Triage 08/18/2024 Refill [facility] [address] [place] [address] Walter Aiken MD Chronic pain syndrome 08/12/2024 Refill [facility] [address] [place] [address] Walter Aiken MD 07/28/2024 Telephone [facility] [address] [place] [address] SCAN 07/28/2024 Telephone [facility] [address] [place] [address] Walter Aiken MD 07/27/2024 Orders Only [facility] [address] [place] [address] Walter Aiken MD Controlled type 2 diabetes mellitus with hyperglycemia, with long-term current use of insulin ([facility]) (Primary Dx); Uncontrolled diabetes mellitus of other type with hypoglycemia, unspecified hypoglycemia coma status ([facility]/HCC); Chronic tension-type headache, not intractable 07/27/2024 Telephone [facility] [address] [phone] Walter Aiken MD 07/26/2024 Telephone [facility] [address] [place] [phone] Walter Aiken MD Nurse Triage 07/19/2024 10:40 AM EST Office Visit [facility] [address] [phone] Jonny Golden MD Leg ulcer, left, with unspecified severity (CMS/HCC) (Primary Dx); Tobacco dependence; Hypertension, unspecified type; Opioid use disorder 07/17/2024 Refill [facility] [address] [place] [address] Walter Aiken MD Hypercholesterolemia; Chronic pain syndrome 07/11/2024 Telephone [facility] [address] [place] [address] Walter Aiken MD No Show 07/01/2024 Refill [facility] [address] [place] [phone] Walter Aiken MD Chronic pain syndrome 06/13/2024 Refill [facility] [address] [place] [phone] Walter Aiken MD Chronic pain syndrome; Other insomnia 06/13/2024 Telephone [facility] [address] [place] [address] Walter Aiken MD Nurse Triage from Last 3 Months Immunizations Name Administration Dates Next Due Hep B, adult 04/08/2019,01/18/2019,11/01/2018 Influenza injectable quadriv alent IIV4 with preservative 03/23/2017,05/07/2015 Influenza injectable quadriv alent preservative free 04/08/2019 TD (adult), 2 Lf tetanus tox oid, preservative free, adsorbed 07/24/2017 Tdap 02/28/2016 Social History Tobacco Use Types Packs/Day Years Used Date Smoking Tobacco: Every Day Cigarettes 0.3 7 Passive Smoke Exposure: Current Smokeless Tobacco: Never Tobacco Cessation:Ready to Q uit: Not Asked; Counseling Given: Not Answered Depression Answer Date Recorded Patient Health Questionnaire-9 Score 13 09/06/2024 Patient Health Questionnaire-9 Score 13 09/06/2024 Last PHQ-9: Questionnaire Data Not on file 0 09/06/2024 Housing Stability Answer Date Recorded What is your housing situation today? I have iain mccoy 09/06/[address] you [...] Orientation Straight 05/05/2022 10 :15 AM EDT Last Filed Vital Signs Vital Sign Reading Time Taken Comments Blood Pressure 131/68 09/06/2024 2:17 PM EST Pulse 76 09/06/2024 2:17 PM EST Temperature 36.7 ??C (98.1 ??F) 07/19/2024 10:[address] Respiratory Rate 20 09/06/2024 2:17 PM EST Oxygen Saturation 96% 09/06/2024 2:17 PM EST Inhaled Oxygen Concentration - - Weight 60.3 kg (133 lb) 09/06/2024 2:17 PM EST Height 149.9 cm (4' 11 ) 09/06/2024 2:17 PM EST Body Mass Index 26.86 09/06/2024 2:17 PM EST Plan of Treatment Health Maintenance Due Date Last Done Comments CT Colonography 1966 Colonoscopy 1966 FIT 1966 FOBT 1966 HIV Screening 1966 Lipid Panel 1966 Sigmoidoscopy 1966 Diabetes: Foot Exam 1976 Eye Exam 1976 Hepatitis C Screening 1984 Hepatitis A Vaccines (1 of 2 - Risk 2-dose series) 1985 Pneumococcal Vaccine: 50+ Years (1 of 2 - PCV) 1985 Dental Oral Exam 12/16/2012 06/16/2012, 06/16/2012 Dental Prophylaxis 12/16/2012 06/16/2012, 06/16/2012 Dental X-Ray: Bitewings 06/17/2013 06/16/2012, 06/16 Zoster Vaccines (1 of 2) 2016 Pap Smear 01/18/2022 01/18/2019 Cervical Cancer Screening 01/19/2024 HPV/Cotest 01/19/2024 01/18/2019 COVID-19 Vaccine ( season) 2024 11/16/2020 Influenza Vaccine (#1) 2024 9, 03/23/2017, 05/07/2015 Diabetes: Urine Protein Screening 06/23/2024 06/23/2023 Diabetes: Hemoglobin A1C 12/07/2024 025, 04/29/2024, 01/25/2024, Additional history exists Mammogram 02/23/2025 02/23/2023, 08/07/2022, 12/09/2013 Depression Monitoring (PHQ-9) 03/09/2025 09/06/2024, 09/06/2024 Tobacco Screening 07/19/2025 07/19/2024 Alcohol/Substance Use Screening 09/06/2025 09/06/2024 Depression Screening 09/06/2025 09/06/2024, 09/07/19 25 SDOH Screening 09/06/2025 09/06/2024 Dental X-Ray: Full Mouth 11/20/2025 023, 06/16/2012, 06/16/2012 Colorectal Cancer Screening 03/28/2027 FIT DNA/Cologuard 03/28/2027 03/28/2024 DTaP/Tdap/Td Vaccines (3 - Td or Tdap) 07/24/2027 07/24/2017, 02/28/2016 RSV Patients and Patients Aged 60 years or older (1 - 1-dose 75+ series) 2041 Hepatitis B Vaccines Completed 04/08/2019, 01/18/2019, 11/01/2018 HIB Vaccines Aged Out No longer eligi ble based on patient's age to complete this topic HPV Vaccines Aged Out No longer eligi ble based on patient's age to complete this topic IPV Vaccines Aged Out No longer eligi ble based on patient's age to complete this topic Meningococcal Vaccine Aged Out No ean kin eligible based on patient's age to complete this topic RSV under 20 months Aged Out No longe r eligible based on patient's age to complete this topic Rotavirus Vaccines Aged Out No longer eligible based on patient's age to complete this topic Procedures Procedure Name Priority Date/Time Associated Diagnosis Comments COMPREHENSIVE METABOLIC PANEL Routine 09/06/2024 3:44 PM EST Memory disturbance TSH W/REFLEX TO FT4 Routine 09/06/2024 3 :44 PM EST Memory disturbance VITAMIN B12/FOLATE, SERUM PANEL Routine 09/06/2024 3:44 PM EST Memory disturbance MAGNESIUM Routine 09/06/2024 3:44 PM EST Rectal bleed Other fatigue CBC WITH AUTO DIFFERENTIAL Routine 09/06/2024 3:44 PM EST Rectal bleed Other fatigue POCT GLUCOSE Routine 09/06/2024 3:26 PM EST Controlled type 2 diabetes mellitus with hyperglycemia, with long-term current use of insulin ([facility]) POCT GLYCATED HEMOGLOBIN, TOTAL Routine 09/06/2024 3:25 PM EST Controlled type 2 diabetes mellitus with hyperglycemia, with long-term current use of insulin (CMS/HCC) LAB COLOGUARD?? COLON CANCER SCREEN Routine 03/28/2024 7:56 PM EDT Screening for colon cancer ALBUMIN, RANDOM URINE W/CREATININE Routine 06/23/2023 10:25 AM EST Controlled type 2 diabetes mellitus with hyperglycemia, with long-term current use of insulin (CMS/HCC) BI MAMMOGRAM DIAGNOSTIC TOMOSYNTHESIS BILATERAL Routine 02/23/2023 4:14 PM EDT PANORAMIC RADIOGRAPHIC IMAGE Routine 11/19/2022 10:30 AM EDT ZZZ HISTORICAL HPV MRNA E6/E7 Routine 01/18/2019 3:23 PM EDT HM PAP/HPV Routine 01/18/2019 PROPHYLAXIS - ADULT Routine 06/16/2012 1 2:00 AM EST INTRAORAL - COMPLETE SERIES OF RADIOGRAPHIC IMAGES Routine 06/16/2012 12:00 AM EST COMPREHENSIVE ORAL EVALUATION - NEW OR ESTABLISHED PATIENT Routine 06/16/2012 12:00 AM EST from Last 3 Months or Most Recently Relevant to Health Maintenance Results * Vitamin B12/Folate, Serum Panel (09/06/2024 3:44 PM EST) Vitamin B12 358 200 - 900 pg/mL [facility] Comment:NORMAL 200-900 PG/ML INDETERMINATE 160-199 PG/ML DEFICIENT < 160 PG/ML Folate 12.7 > or = 4.0 ng/mL [facility] Comment:Reference Values:> o r = 4.0 ng/mL< 4.0 ng/mL suggests folate deficiency Methotrexate, aminopterin and folinic acid(leucovorin) are chemotherapeutic agents whose molecularstructures are similar to folate; therefore, the Architectfolate assay cannot be used for patients using these drugs. Blood Venous blood specimen / Unknown 09/06/2024 3:44 PM EST 09/06/2024 6:22 PM EST us Walter Aiken MD LAB BLOOD ORDERABLES Final Result Performing Organization Address City/[facility]/ZIP Co de Phone Number [facility] [address] [place] [address] [phone] * TSH W/Reflex to FT4 (09/06/2024 3:44 PM EST) Pathologist [facility] TSH reflex Free T4 1.11 0.32 - 4.0 uIU/mL [facility] Blood Venous blood specimen / Unknown 09/06/2024 3:44 PM EST 09/06/2024 6:22 PM EST Walter Aiken MD LAB BLOOD ORDERABLES Final Result Performing Organization Address [facility] Co de Phone Number [facility] [address] [place] [address] [phone] * (ABNORMAL) CBC auto differential (09/06/2024 3:44 PM EST) [facility] White Blood Count 9.3 4.8 - 10.8 X10*3/uL [facility] Red Blood Count 3.82(L) 4.20 - 5.50 X10*6/uL [facility] Hemoglobin 10.9(L) 12.0 - 16.0 g/dl [facility] Hematocrit 34.3(L) 37.0 - 47.0 % [facility] Mean Corpuscular Volume 89.8 80.0 - 98.0 fL [facility] Mean Corpuscular Hemoglobin 28.5 27.0 - 33.0 pg [facility] Mean Corpuscular HGB Conc 31.8 31.0 - 35.0 g/dl [facility] Red Cell Distribution Width 15.1 11.0 - 16.0 % [facility] Platelet Count 316 160 - 400 X10*3/uL [facility] Mean Platelet Volume 11.4 9.4 - 12.3 fL [facility] Neutrophils Percent Auto 67.1 45 - 73 % [facility] Imm Gran Pct Auto 0.6(H) 0.0 - 0.4 % [facility] Lymphocytes Percent Auto 22.3 20 - 40 % [facility] Monocytes Percent Auto 6.3 2 - 11 % [facility] Eosinophils Percent Auto 3.1 0 - 4 % [facility] Basophils Percent Auto 0.6 0 - 2 % [facility] NRBC Pct Auto 0.0 0.0 - 0.2 /100WBC [facility] Neutrophils Absolute Auto 6.2 2.0 - 8.3 x10*3/uL [facility] Imm Gran Abs Auto 0.06(H) 0.00 - 0.03 X10*3/uL [facility] Lymphocytes Absolute Auto 2.1 1.2 - 4.9 X10*3/uL [facility] Monocytes Absolute Auto 0.6 0.1 - 1.2 X10*3/uL [facility] Eosinophils Absolute Auto 0.3 0.0 - 0.4 X10*3/uL [facility] Basophils Absolute Auto 0.1 0.0 - 0.2 X10*3/uL [facility] NRBC Abs Auto 0.000 0.0 - 0.012 X10*3/uL [facility] Blood Venous blood specimen / Unknown 09/06/2024 3:44 PM EST 09/06/2024 6:22 PM EST Walter Aiken MD LAB BLOOD ORDERABLES Final Result [facility] [address] [place] [phone] * (ABNORMAL) Magnesium (09/06/2024 3:44 PM EST) Magnesium 1.5(L) 1.6 - 2.6 mg/dL [facility] Blood Venous blood specimen / Unknown 09/06/2024 3:44 PM EST 09/06/2024 6:22 PM EST Walter Aiken MD LAB BLOOD ORDERABLES Final Result Performing Organization Address City/[facility]/ZIP Co de Phone Number [facility] [address] [place] [address] [phone] * (ABNORMAL) Comprehensive Metabolic Panel (09/06/2024 3:44 PM EST) Sodium 137 135 - 145 mmol/L [facility] Potassium 4.5 3.3 - 5.1 mmol/L [facility] Chloride 104 96 - 108 mmol/L [facility] Carbon Dioxide 23 22 - 29 mmol/L [facility] Anion Gap 15 12 - 20 [facility] Urea Nitrogen (BUN) 36(H) 9 - 16 mg/dL [facility] Creatinine, Serum 1.86(H) 0.5 - 1.4 mg/dL [facility] Estimated Glomerular Filt Rate 28 [facility] Comment:Chronic Kidney Disea se: Estimated GFR < 60 mL/min/1.67x3Tpeejn Kidney Disease: Estimated GFR < 15 mL/min/1.73m2 Glucose 141(H) 60 - 115 mg/dL [facility] Calcium 8.6 8.4 - 10.2 mg/dL [facility] Bilirubin, Total 0.2 0.0 - 1.0 mg/dL [facility] Aspartate Amino Transferase 21 5 - 31 U/L [facility] Alanine Aminotransferase 13 0 - 31 U/L [facility] Total Protein 7.8 6.5 - 8.0 g/dL [facility] Albumin Level 3.2(L) 3.5 - 5.0 g/dL [facility] Alkaline Phosphatase 123(H) 39 - 117 U/L [facility] Blood Venous blood specimen / Unknown 09/06/2024 3:44 PM EST 09/06/2024 6:22 PM EST us Walter Aiken MD LAB BLOOD ORDERABLES Final Result Performing Organization Address [facility]/ZIP Co de Phone Number [facility] [address] [place] [address] [phone] * POCT Glucose (09/06/2024 3:26 PM EST) Glucose Blood, POC 129 60 - 200 mg/dL QC Media Lot # [id number] Lot# Expiration Date 732,025 Comment:random Blood Capillary blood specimen / Unknown 09/06/2024 3:26 PM EST Walter Aiken MD POINT OF CARE TEST ENTER/ED IT ORDERABLES Final Result * (ABNORMAL) POCT HGB A1C (09/06/2024 3:25 PM EST) Pathologist [facility] Hemoglobin A1C 9.7(A) 4.0 - 6.0 % QC Media Lot # [id number] Lot# Expiration Date ,026 Blood 09/06/2024 3:25 PM EST Walter Aiken MD POINT OF CARE TEST ENTER/ED IT ORDERABLES Final Result * Cologuard?? colon cancer screening (03/28/2024 7:56 PM EDT) Pathologist [facility] Cologuard Result Negative Negative 04/02/20 24 1:17 PM EDT [employer] (CLIA #:[id number]) Comment: NEGATIVE TEST RESULT. A negative Cologuard [...] screened with both Cologuard and colonoscopy. (Yoko Funez al, N Engl J Med 2014;370(14):1286- 1297) The normal value (reference range) for this assay is negative. COLOGUARD RE-SCREENING RECOMMENDATION: Periodic colorectal cancer screening is an important part of preventive healthcare for asymptomatic individuals at average risk for colorectal cancer. ??Following a negative Cologuard result, the [place] [employer] and U.S. Multi-Society Task Force screening guidelines recommend a Cologuard re-screening interval of 3 years. References: [place] [employer] Guideline for Colorectal Cancer Screening: https://www.cancer.org/cancer/qbyuk-nelmlh-rquntq/ulgfcqqfi-brmemqvzv-jasmrqv/ac s-rec ommendations.html.; Rayshawn DK, Cruzito ALVAREZ, Elyssa TaylorK, Colorectal Cancer Screening: Recommendations for Physicians and Patients from the U.S. Multi-Society Task Force on Colorectal Cancer Screening , Am J Gastroenterology 2017; 112:4665-1123. TEST DESCRIPTION: Composite algorithmic analysis of stool [...] screened with both Cologuard and colonoscopy. (Yoko Funez al, N Engl J Med 2014;370(14):6971-2800.) Cologuard may produce a false negative or false positive result (no colorectal cancer or precancerous polyp present at colonoscopy follow up). A negative Cologuard test result does not guarantee the absence of CRC or advanced adenoma (pre-cancer). The current Cologuard screening interval is every 3 years. ([place] [employer] and U.S. Multi-Society Task Force). Cologuard performance data in a 10,000 patient pivotal study using colonoscopy as the reference method can be accessed at the following location: www.[email or web address]/results. Additional description of the Cologuard test process, warnings and precautions can be found at www.cologuard.com. Stool specimen (specimen) 03/28/2024 7:56 PM EDT 03/30/2024 9:45 AM EDT Walter Aiken MD LAB MOLECULAR DIAGNOSTICS O RDERABLES Final Result Performing Organization Address City/[facility] Co de Phone Number [employer] (CLIA #:[id number]) [address] [place] [address], * (ABNORMAL) Albumin, Random Urine W/Creatinine (06/23/2023 10:25 AM EST) Creatinine, Urine 201.70 mg/dL [facility] Microalbumin Urine 1,587.0 mg/L [facility] Microalbum Creatinine Ratio Ur 786.8(H) <30 ug/mg cr [facility] Comment:Albumin/Creatinine R atio Reference Ranges: Normal: < 30 ug/mg creatinine Microalbuminuria: 30 - 300 ug/mg creatinineClinical Albuminuria: > 300 ug/mg creatinine Urine (Urine, Random) 06/23/2023 10:25 AM EST 06/23/2023 5:33 PM EST us Walter Aiken MD LAB URINE ORDERABLES Final Result Performing Organization Address [facility]/ZIP Co de Phone Number [facility] [address] [place] [phone] * BI Mammogram Diagnostic Tomosynthesis Bilateral (02/23/2023 4:14 PM EDT) Anatomical Region Laterality Modality Breast Bilateral Mammography 02/23/2023 4:14 PM EDT Narrative 02/23/2023 4:56 PM EDT ? [facility] ? [address] ?[place] [address] ? Mammography Report ? Signed ? Patient: Rosas,Blank I ?MR#: [id number] ?? [id number] ? : 1965 ?Acct:[id number] ? Age/Sex: 57 / F ?ADM Date: 02/23/23 ? Loc: HO.MAMMO ? Attending Dr: Walter Aiken MD ? Ordering Physician: Walter Aiken MD ?Results: 2 ?? Benign Findings ? Date of Service: 02/23/23 ?Follow Up: 1 Year From Orig ?? inal Mammogram ? Procedure(s): MM tomosynthesis diagnostic BI ?? Accession Number(s): [id number] ? cc: Walter Aiken MD ? EXAMINATION: ?? MM DIAGNOSTIC DIGITAL BREAST TOMOSYNTHESIS, BILATERAL ?? US BREAST LIMITED, LEFT ? MAMMOGRAPHY: ?? CLINICAL INFORMATION: ? Patient complaining of severe left periareolar and retroareolar pain. ?? Patient also due for screening mammography. Last mammogram was ?? 12/09/2013. ? COMPARISON: ?? Mammography: 12/09/2013, and plain film mammography which was digitized ?? from 04/21/2005. ? TECHNIQUE: ?? Digital breast tomosynthesis is performed in both the craniocaudal and ?? mediolateral oblique views along with computer-aided detection (CAD). ?? Synthesized 2D images are generated from the tomosynthesis. ? FINDINGS: ?? There are scattered areas of fibroglandular density (ACR BI-RADS breast ?? composition Category b). ? Breasts appears slightly denser and smaller than in 2014, suggestive of ?? weight loss. ??There is generalized mild trabecular thickening in both ?? breasts, as well as generalized mild skin thickening bilaterally, ?? suggesting CHF. ? There are no suspicious masses, suspicious grouped calcifications, or ?? areas of architectural distortion. The parenchymal pattern is stable ?? from the remote prior exams. No abnormality was noted in the left ?? periareolar or retroareolar region. ? ULTRASOUND: ?? CLINICAL INFORMATION: ?? Left periareolar and retroareolar pain. ? COMPARISON: ?? No relevant prior ultrasound. Mammography dated same day. ? TECHNIQUE: ?? Targeted sonographic evaluation was performed of the left breast ?? retroareolar and periareolar region using a high frequency linear ?? transducer. ??Selected archived documentation. ? FINDINGS: ? LEFT BREAST: ? No abnormal fluid collection, mass, abscess, or cystic abnormality is ?? identified. No abnormal acoustic shadowing. Mild edema was noted in the ?? soft tissue planes, further supporting probable CHF. ? No sonographic abnormality in the retroareolar region left breast. ? MM/MM tomosynthesis diagnostic BI ?? IMPRESSION: ?? No findings suspicious for malignancy in either breast. ? No imaging abnormality to explain retroareolar pain left breast. ?? Recommend clinical management. ? Findings suggesting CHF. ? OVERALL ASSESSMENT: ?? Mammography: BI-RADS 2 - Benign Findings ?? Ultrasound: BI-RADS 2 - Benign Findings ? RECOMMENDATION: ?? 1 year F/U ? Results were provided to the patient at time of visit by the ?? technologist. ? This patient's information was entered into a reminder system with a ?? target due date for their next mammogram. ? Dictated By: ?Margarito Andrew MD ? Signed By: ?<Electronically signed by Margarito Andrew MD in OV> ?02/23/23 1653 ? DD/ 1614 ? TD/TT: ? High Rigger: ? Procedure Note Donotuseinterpreter, Image - 02/23/2023 [place] [facility] [address] [place], [place] [address] Mammography Report Signed Patient: Blank Rosas [facility]#: [id number] : 1965Acct:[id number] Age/Sex: 57 / FADM Date: 02/23/23 Loc: HO.MAMMO Attending Dr: Walter Aiken MD Ordering Physician: Walter Aiken MDResults: 2 Benign Findings Date of Service: 02/23/23Follow Up: 1 Year From Orig ina Mammogram Procedure(s): MM tomosynthesis diagnostic BI Accession Number(s): [id number] cc: Walter Aiken MD EXAMINATION: MM DIAGNOSTIC DIGITAL BREAST TOMOSYNTHESIS, BILATERAL US BREAST LIMITED, LEFT MAMMOGRAPHY: CLINICAL INFORMATION: Patient complaining of severe left periareolar and retroareolar pain. Patient also due for screening mammography. Last mammogram was 12/09/2013. COMPARISON: Mammography: 12/09/2013, and plain film mammography which was digitized from 04/21/2005. TECHNIQUE: Digital breast tomosynthesis is performed in both the craniocaudal and mediolateral oblique views along with computer-aided detection (CAD). Synthesized 2D images are generated from the tomosynthesis. FINDINGS: There are scattered areas of fibroglandular density (ACR BI-RADS breast composition Category b). Breasts appears slightly denser and smaller than in 2014, suggestive of weight loss. There is generalized mild trabecular thickening in both breasts, as well as generalized mild skin thickening bilaterally, suggesting CHF. There are no suspicious masses, suspicious grouped calcifications, or areas of architectural distortion. The parenchymal pattern is stable from the remote prior exams. No abnormality was noted in the left periareolar or retroareolar region. ULTRASOUND: CLINICAL INFORMATION: Left periareolar and retroareolar pain. COMPARISON: No relevant prior ultrasound. Mammography dated same day. TECHNIQUE: Targeted sonographic evaluation was performed of the left breast retroareolar and periareolar region using a high frequency linear transducer. Selected archived documentation. FINDINGS: LEFT BREAST: No abnormal fluid collection, mass, abscess, or cystic abnormality is identified. No abnormal acoustic shadowing. Mild edema was noted in the soft tissue planes, further supporting probable CHF. No sonographic abnormality in the retroareolar region left breast. MM/MM tomosynthesis diagnostic BI IMPRESSION: No findings suspicious for malignancy in either breast. No imaging abnormality to explain retroareolar pain left breast. Recommend clinical management. Findings suggesting CHF. OVERALL ASSESSMENT: Mammography: BI-RADS 2 - Benign Findings Ultrasound: BI-RADS 2 - Benign Findings RECOMMENDATION: 1 year F/U Results were provided to the patient at time of visit by the technologist. This patient's information was entered into a reminder system with a target due date for their next mammogram. Dictated By: Margarito Andrew MD Signed By: <Electronically signed by Margarito Andrew MD in OV> 02/23/23 1653 DD/ 1614 TD/TT: High Rigger: us Walter Aiken MD IMG BI PROCEDURES Final Res ult * HPV mRNA E6/E7 (01/18/2019 3:23 PM EDT) HPV mRNA E6/E7 Not Detected NOT DETECTED [facility] Comment: This test was performed using the APTIMA(R) HPV Assay ([employer] This assay detects E6/E7 viral messenger RNA (mRNA) from 14 high-risk HPV types (16,18,31,33,35,39,45,51, 52,56,58,59,66,68). For additional information please refer to: http://education.Qoostar.Tryolabs/faq/GNG073t5 (This link is being provided for informational/ educational purposes only.) The analytical performance characteristics of this assay have been determined by [facility] [place], [place]. The modifications have not been cleared or approved by the FDA. This assay has been validated pursuant to the CLIA regulations and is used for clinical purposes. Test Performed by [employer], [employer] [address] [address] Phillip Gutierrez M.D., Ph.D., Director of Laboratories , [facility] [id number] Please note: ??Effective 03/17/2016, HPV testing will be performed using [employer]'s APTIMA test which targets mRNA. Detecting mRNA instead of DNA, as in older methods, offers significant improvements in specificity. 01/18/2019 3:23 PM EDT Krystal Shields CNM HISTORICAL/NON ORDERABLE LABS Final Result [facility] [address] * Pap Smear (01/18/2019) Pap smear performed Historical Provider MD HEALTH MAINTENANCE Final Result from Last 3 Months or Most Recently Relevant to Health Maintenance Insurance MEDICARE [facility] STAND[facility] [id number] Care Teams Zigzag Machine Operator Relationship Specialty Start Date End Date Walter Aiken MD [address] [facility] [place] [address] PCP - General Internal Medicine 04/05/14 [employer] 08/20/22
--- OUTSIDE RECORDS SUMMARY | 2024-09-06 19:45 | XMS_ITS | Encounter Summary ---
Author Organization [employer] Address [address] [place] [address] 7 [place] [address] Care Team Providers Care Political Science Research Assistant Name Role Phone Walter Aiken MD Primary Care Provider [phone] Reason for Visit * Reason Onset Date Comments Pt1 06/19/2023 Encounter Details Date Type Department Care Team ([facility] Contact Info) Description 06/19/2023 Telephone [facility] [address] [place], [place] [phone] Walter Aiken MD [address] [place] [address] Pt1 Social History Tobacco Use Types Packs/Day [...] Telephone Encounter - Leyla Graves - 06/19/2023 4:26 PM EST PT-1 submitted for patient. They will receive a letter of approval or denial in the mail. * Telephone Encounter - Arvind Hines - 06/19/2023 11:53 AM EST PT1 needed Date: 07/24/23 Time: 11:30 Am Visits: (N/A) Address: [address] [place] [address] Mihaela [place] Facility: ([facility] [address] [place] ) Wheel Chair: (No) Dance Master Needed: No documented in this encounter Plan of Treatment Not on file documented as of this encounter Visit Diagnoses Not on filedocumented in this encounter Care Teams Political Science Research Assistant Relationship Specialty Start Date End Date Walter Aiken MD [address] [place] [phone] PCP - General Internal Medicine 04/05/14 [employer] 08/20/22 documented as of this encounter
--- OUTSIDE RECORDS SUMMARY | 2024-09-06 19:45 | XMS_ITS | Encounter Summary ---
Author Organization [employer] Address [address] [facility] 7 [place] [address] Care Team Providers Care Carpenter Assistant Name Role Phone Walter Aiken MD Primary Care Provider [phone]- [phone] Reason for Visit * Reason Onset Date Comments PT 1 04/24/2023 Encounter Details Date Type Department Care Team (Late st Contact Info) Description 04/24/2023 Telephone [facility] [address] [place] [address] Walter Aiken MD 505 [facility] [place] [phone] PT 1 Social History Tobacco Use Types Packs/Day Years [...] * Telephone Encounter - Leyla Graves - 04/27/2023 1:37 PM EDT PT-1 submitted for patient. They will receive a letter of approval or denial in the mail. * Telephone Encounter - Cliff Garza - 04/24/2023 11:18 AM EDT PT1 Date: N/A Time: N/A Visits: Dental Address:[address] [place] [address] Facility: (name, specialty or name of doctor) Wheel Chair: no Apron Trimmer Needed: no documented in this encounter Plan of Treatment Not on file documented as of this encounter Visit Diagnoses Not on filedocumented in this encounter Care Teams Carpenter Assistant Relationship Specialty Start Date End Date Walter Aiken MD [address] [place] [phone] PCP - General Internal Medicine 04/05/14 [employer] 08/20/22 documented as of this encounter
--- OUTSIDE RECORDS SUMMARY | 2024-09-06 19:45 | XMS_ITS | Encounter Summary ---
Author Organization [employer] Address [address] [facility] 7t [place] [address] Care Team Providers Care Sap Basis Administrator Name Role Phone Walter Aiken MD Primary Care Provider [phone] Reason for Visit * Reason Comments Med Refill Encounter Details Date Type Department Care Team ([facility] st Contact Info) Description 08/12/2024 Refill [facility] [address] [place] [address] Walter Aiken MD 505 [place] [address] Social History Tobacco Use Types Packs/Day Years [...] on filedocumented in this encounter Care Teams Sap Basis Administrator Relationship Specialty Start Date End Date Walter Aiken MD [address] [place] [phone] PCP - General Internal Medicine 04/05/14 [employer] 08/20/22 documented as of this encounter
--- OUTSIDE RECORDS SUMMARY | 2024-09-06 19:45 | XMS_ITS | Encounter Summary ---
Author Organization [employer] Address 75 [facility] 7 [place] [address] Care Team Providers Care Tapper Operator Name Role Phone Walter Aiken MD Primary Care Provider [phone] Reason for Visit * Reason Onset Date Comments Chart Prep 09/05/2024 Encounter Details Date Type Department Care Team ([facility] st Contact Info) Description 09/05/2024 Telephone [facility] 505 [facility] [place] [address] Walter Aiken MD 505 [place] [address] Chart Prep Social History Tobacco Use Types Packs/Day Years [...] encounter Miscellaneous Notes * Telephone Encounter - Teresa Bolaños MA - 09/05/2024 11:07 AM EST Chart Prep Labs: not done Images: done Vaccines due: yes Referrals: complete Screenings: pap smear , STI screening, eye exam, foot exam Overdue care gaps: A1C, Glucose, Sbirt, SDOH, PHQ-9 documented in this encounter Plan of Treatment Not on file documented as of this encounter Visit Diagnoses Not on filedocumented in this encounter Care Teams Tapper Operator Relationship Specialty Start Date End Date Walter Aiken MD [address] [place] [phone] PCP - General Internal Medicine 04/05/14 [employer] 08/20/22 documented as of this encounter
--- OUTSIDE RECORDS SUMMARY | 2024-09-06 19:45 | XMS_ITS | Encounter Summary ---
Author Organization [employer] Address [address] [facility] 7 [place] [address] Care Team Providers Care Automatic Serging Machine Operator Name Role Phone Walter Aiken MD Primary Care Provider [phone] Reason for Visit * Reason Onset Date Comments Hospital Follow-up 07/10/2023 Encounter Details Date Type Department Care Team ([facility] st Contact Info) Description 07/10/2023 Telephone [facility] 505 [facility] [place] [address] Walter Aiken MD 505 [place], [place] [phone] Hospital Follow-up Social History Tobacco Use Types Packs/Day [...] * Telephone Encounter - Sumaya Way - 07/23/2023 8:31 AM EST Tc from pt in regards below. * Telephone Encounter - Arvind Hines - 07/10/2023 9:25 AM EST Tc from pt requesting a HDF appt. Hospital: [facility] Date of admission: 07/07/23 Discharge date: 07/09/23 Diagnosed: pneumonia documented in this encounter Plan of Treatment Not on file documented as of this encounter Visit Diagnoses Not on filedocumented in this encounter Care Teams Automatic Serging Machine Operator Relationship Specialty Start Date End Date Walter Aiken MD [address] [place] [phone] PCP - General Internal Medicine 04/05/14 [employer] 08/20/22 documented as of this encounter
--- OUTSIDE RECORDS SUMMARY | 2024-09-06 19:45 | XMS_ITS | Data Portability ---
Author Organization [facility], Main Office Address [address] [address] [address] [place] [address] Care Team Providers Care Hospice Liaison Name Role Phone [facility] OTHER Assessment Encounter Date Assessment Date Assessment LastModified by Organization Details LastModified Time 04/22/2018 04/22/201803/12 na 137, k 4.2, bun 16, creat 0.7, wbc 7.93, hgb 10.9, hct 32.8 04/05 bun 20, creat 0.9, na 135, k 4.6, wbc 9.32, hgb 11.3, hct 34.3 Not available 04/22/2018 11:36:27 04/30/2018 04/30/201803/12 na 137, k 4.2, bun 16, creat 0.7, wbc 7.93, hgb 10.9, hct 32.8 04/05 bun 20, creat 0.9, na 135, k 4.6, wbc 9.32, hgb 11.3, hct 34.3 Not available 04/30/2018 14:09:11 05/12/2018 05/12/201803/12 na 137, k 4.2, bun 16, creat 0.7, wbc 7.93, hgb 10.9, hct 32.8 04/05 bun 20, creat 0.9, na 135, k 4.6, wbc 9.32, hgb 11.3, hct 34.3 05/04 bun 26, creat 0.9, wbc 10.68, hgb 11.0, hct 34.1 Not available 05/12/2018 12:08:19 05/21/2018 05/21/201803/12 na 137, k 4.2, bun 16, creat 0.7, wbc 7.93, hgb 10.9, hct 32.8 04/05 bun 20, creat 0.9, na 135, k 4.6, wbc 9.32, hgb 11.3, hct 34.3 05/04 bun 26, creat 0.9, wbc 10.68, hgb 11.0, hct 34.1 [email or web address] Not available 05/21/2018 10:10:35 05/25/2018 05/25/201803/12 na 137, k 4.2, bun 16, creat 0.7, wbc 7.93, hgb 10.9, hct 32.8 04/05 bun 20, creat 0.9, na 135, k 4.6, wbc 9.32, hgb 11.3, hct 34.3 05/04 bun 26, creat 0.9, wbc 10.68, hgb 11.0, hct 34.1 03/12 na 137, k 4.2, bun 16, creat 0.7, wbc 7.93, hgb 10.9, hct 32.8 04/05 bun 20, creat 0.9, na 135, k 4.6, wbc 9.32, hgb 11.3, hct 34.3 Not available 05/25/2018 16:39:08 Plan of Treatment Reminders Order Date Submit Date Provider Last Modified By Organization Details Last Modified Time Details Appointments None record ed. Lab None record ed. Referral None record ed. Procedures None record ed. Surgeries None record ed. Imaging None record ed. Medication Orders None record ed. Patient TargetsNo targets recorded. Patient Instructions Encounter Date Encounter Id Patient Instructions Last Modified By Organization Details Last Modified Time 05/21/2018 [id number] Eval patient and agree with A&P CA Not available 05/21/2018 11:28:37 Reason for Referral None Reported. Problems Name Problem SNOMED Code Status Onset Date Resolution Date Notes Provider Name and Address Organization Details Recorded Time Toxic encephalopa thy 91604424 [facility] 8 13:41:40 Acute injury of kidney 3570905028527 4108 Active 2017 [facility] [employer] [facility] 8 13:41:48 Sepsis 57263319 Active 2017 Naty downey, [facility] 8 13:42:14 Polysubstan ce abuse 855434939 Active 2017 Naty downey, [facility] 8 13:42:25 Diabetes mellitus 27506847 Active 2017 Naty downey, [facility] 8 13:42:31 Paraseptal emphysema 53531132 Active 2017 Naty downey, [facility] 8 13:42:46 Closed fracture of scapula 69759154 [facility] 13:43:05 Closed fracture of left ankle 2030108662442 9108 Active 2017 Naty downey, [facility] 8 13:43:15 Gastroesoph ageal reflux disease without esophagitis 531973570 [facility] 8 13:46:45 Essential hypertensio n 52734711 Active 2017 Huong Quinonez MD [address] [place] [address], [facility] [address], [address] [place] [address] [employer] [facility] 8 13:55:12 Problem Notes None recorded. Medical Equipment None Reported. Allergies No known drug allergies Vitals Date Recorded Systolic blood pressure Diastolic blood pressure Provider Name and Address Organization Details Last Updated DateTime 04/22/2018 136 mm[Hg] 75 mm[Hg] Naty Izquierdo [facility] [employer] [facility] 04/22/2018 11:49:33 Date Recorded Systolic blood pressure Diastolic blood pressure Provider Name and Address Organization Details Last Updated DateTime 04/30/2018 138 mm[Hg] 75 mm[Hg] Naty Izquierdo [facility] [employer] [facility] 04/30/2018 14:06:28 Date Recorded Systolic blood pressure Diastolic blood pressure Provider Name and Address Organization Details Last Updated DateTime 05/12/2018 144 mm[Hg] 78 mm[Hg] Naty Izquierdo [employer] [facility] 05/12/2018 12:11:27 Date Recorded Systolic blood pressure Diastolic blood pressure Provider Name and Address Organization Details Last Updated DateTime 05/21/2018 125 mm[Hg] 86 mm[Hg] Dora Hernandez [address] [facility], [address], [place], [address], [facility] 05/21/2018 10:57:14 Date Recorded Systolic blood pressure Diastolic blood pressure Provider Name and Address Organization Details Last Updated DateTime 05/25/2018 134 mm[Hg] 74 mm[Hg] Naty Izquierdo [facility] 05/25/2018 16:22:50 Social History Question Answer Notes LastModified by Organizat ion Details LastModified Time Tobacco Smoking Status Current Every Day Smoker Not Available [employer] 05/01/2020 03:13:20 Do You Have An Advance Directive? Yes Full Code [id number] Information not available 05/01/2020 What Is Your Level Of Alcohol Consumption? None [id number] Information not available 05/01/2020 How Much Tobacco Do You Chew? None [id number] Information not available 05/01/2020 Do You Have A Medical Power Of Chemical Librarian? No [id number] Information not available 05/01/2020 What Was The Date Of Your Most Recent Tobacco Screening? 05/25/2018 [id number] Information not available 05/01/2020 Sex: Unknown Functional Status None recorded. Mental Status None recorded. Family History Nothing Reported. Medical History No medical history recorded. Gynecological HistoryNo gynecological history recorded. Obstetrics History GPAL:G 0 P 0 0 0 0 Past Encounters Encounter ID Performer Location Encounter Start Date Encounter Closed Date Diagnosis/Indication Diagnosis SNOMED-CT Code Diagnosis ICD10 Code Diagnosis Note [id number] Naty Izquierdo [facility] on [address] [place] [address] 02/25/2018 13:22:35 03/14/2018 17:16:34 Closed fracture of left ankle 4991108034 9923923 S82.892A Follow ortho recsRemain s NWBF/u with ortho as scheduledD VT prophylaxi s with heparinPT/ OT eval and treatRepea t x-ray on 03/03 Closed fra cture of scapula 86208646 S42.135S Follow ortho recsSling in pacePT/OT eval and treat Toxic encephalopathy 283 73097 G92 Olanzapine 5 mg BID-starte d in hospitalWi ll taper as ablePsych eval requested Acute inju ry of kidney 4352694101 1850444 N17.8 Repeat and monitor renal function Sepsis 59058517 A41.89 Completed antibiotic s in hospitalMo nitor Paraseptal emphysema [address] with contrast in 4-6 weeks Diabetes mellitus 727766 09 E11.9 Lantus 27 units QHSSS insulinMon itor accuchecks Polysubstance abuse 4452 97434 F19.10 Maintained on suboxone Essential hypertension 77979763 I10 Norvasc 5 mg dailyMonit or bp and labs [id number] Naty Izquierdo [facility] on [address] [place] [address] 03/01/2018 13:15:41 03/14/2018 17:33:36 Gastroesophageal reflux disease without esophagitis 395213831 K21.9 Start omeprazole 20 mg BIDMonitor sxs Diabetes mellitus 018461 09 E11.9 Lantus 27 units QHSAdd metformin 1000 mg BIDSS insulinRep eat renal function with addition of metforminM onitor accuchecks [id number] Huong Quinonez MD [facility] on [address] [place] [address] 03/02/2018 11:03:48 03/14/2018 17:57:04 Closed fracture of left ankle 3562122918 5783768 S82.892D Details of fx not in records. Follow ortho recs for NWB. and DVT prophylaxi s with heparin. Needs PT/OT for function. F/U with ortho on 03/10. Having repeat x-ray on 03/03. Getting suboxone and APAP for pain. Closed fra cture of scapula 23407813 S42.135S Continue sling per ortho. PT/OT for function as able. Says the pain in shoulder is the worst. Will start using lidocaine patch to that area and schedule ibuprofen 60 mg q 6 hrs with food. Toxic encephalopathy 283 96101 G92 Olanzapine 5 mg BID was started in hospital can raise BS and cause dyspepsia. Both of which are bothering pt. Will go to 2.5 mg BID for 3 days then D/C if stable.Psy ch eval requested Acute inju ry of kidney 3044951225 5738929 N17.8 Back to nl. But need to monitor with restarting metformin. Sepsis 54891962 A41.89 Completed antibiotic s in hospitalMo nitor Paraseptal emphysema [address] with contrast in 4-6 weeks Diabetes mellitus 447023 09 E11.9 Was on Lantus 27 units qhs and SSI in hosp. Metformin 1000 mg BID restarted yest. Will restart glyburide today she says she was on 4 mg qd. Will taper lantus as able.Monit or accuchecks Polysubstance abuse 4452 38024 F19.10 Maintained on suboxone Essential hypertension 18346465 I10 Continue Norvasc 5 mg dailyMonit or bp and labs Gastroesop hageal reflux disease without esophagitis 581516241 K21.9 Still c/o heartburn and reflux. Omeprazole 20 mg BID restarted yesterday. Monitor as olanzapine tapered.Mo nitor sxs [id number] Naty Izquierdo [facility] on [address] [place] [phone] 03/11/2018 13:37:04 03/15/2018 10:25:42 Closed fracture of left ankle 2246205947 0929311 S82.892A Follow ortho recsRemain s NWBF/u with ortho as scheduledD VT prophylaxi s with heparincon t. PT/OT Closed fra cture of scapula 45004812 S42.135S Follow ortho recsSling in pacePT/OT eval and treat Acute inju ry of kidney 0861706442 8700143 N17.8 Repeat and monitor renal function Diabetes mellitus 094481 09 E11.9 Blood sugars remain elevatedIn crease glyburide 7.5 mg dailyMetfo rmin 1000 mg BIDLantus 27 units QHS SS insulin Polysubstance abuse 4452 95314 F19.10 Maintained on suboxone Essential hypertension 79695155 I10 Norvasc 5 mg dailyBP stable [id number] Naty [facility] on [address] [place] [phone] 03/18/2018 13:40:32 03/23/2018 15:20:43 Closed fracture of left ankle 1486200243 5421616 S82.892A Follow ortho recsRemain s NWBF/u with ortho as scheduledD VT prophylaxi s with heparincon t. PT/OT Diabetes mellitus 569691 09 E11.9 Glyburide 7.5 mg daily Metformin 1000 mg BIDIncreas e Lantus 32 units QHS SS insulinMon itor accuchecks Polysubstance abuse 4452 87729 F19.10 Maintained on suboxone Essential hypertension 41637614 I10 Norvasc 5 mg dailyBP stable Insomnia 989370365 F51.0 9 Add melatonin 5 mg QHSMonitor for effect Tension-type headache 39 5028020 G44.219 Add excedrin PRNEncoura ge fluids-pat ient [place] to [place] [id number] Naty Izquierdo [facility] on [address] [place] [address] 03/22/2018 15:10:04 03/25/2018 15:12:45 Anxiety 45959990 F41.1 Add Hydroxyzin e 50 mg Q6h prn anxietyMon itor for effect Closed fra cture of left ankle 8103177486 8603923 S82.892A Follow ortho recsRemain s NWBF/u with ortho as scheduledD VT prophylax[place] heparincon [place]. [place] [id number] Naty Izquierdo [facility] on [address] [place] [phone] 03/30/2018 11:59:08 04/02/2018 10:11:19 Anxiety 78243201 F41.1 Hydroxyzin e 50 mg Q6h prn anxietyMon itor for effect Closed fra cture of left ankle 7759832015 9964144 S82.892A Follow ortho recsRemain s NWBF/u with ortho as scheduledD VT prophylaxi s with heparincon t. PT/OT Diabetes mellitus 973286 09 E11.9 Glyburide 7.5 mg daily Metformin 1000 mg BIDIncreas e Lantus 32 units QHS SS insulinMon itor accuchecks Polysubstance abuse 4452 35130 F19.10 Maintained on suboxone Essential hypertension 06796938 I10 Norvasc 5 mg dailyBP stable [id number] Naty Izquierdo [facility] on [address] [place] [phone] 04/07/2018 08:56:01 04/19/2018 09:43:41 Closed fracture of left ankle 3359607547 9102468 S82.892A Follow ortho recsRemain s NWBF/u with ortho as scheduledD VT prophylaxi s with heparincon t. PT/OT Diabetes mellitus 899642 09 E11.9 Blood glucose remains highIncrea se Glyburide 10 mg daily Metformin 1000 mg BIDLantus 32 units QHS SS insulinMon itor accuchecks Polysubstance abuse 4452 06272 F19.10 Maintained on suboxone Essential hypertension 62910209 I10 Norvasc 5 mg dailyBP stable Shoulder joint pain 2679 18393 M25.511 X-ray negativeHa s MRI scheduled by ortho for 04/19Lidoc hawk patchIbupr ofen 600 mg QIDAdd tylenol 1000 mg BIDPT/OT eval and treat [id number] Naty Izquierdo [facility] on [address] [place] [phone] 04/14/2018 10:35:59 04/19/2018 11:52:49 Closed fracture of left ankle 7412885829 1603904 S82.892A Follow ortho recsNow partial WB to LLEF/u with ortho as scheduledD VT prophylaxi s with heparincon t. PT/OT Diabetes mellitus 826088 09 E11.9 Blood glucose remains highGlybur fernanda 10 mg daily Metformin 1000 mg BIDIncreas e Lantus 40 units QHS SS insulinMon itor accuchecks Polysubstance abuse 4452 52453 F19.10 Maintained on suboxone Essential hypertension 61692470 I10 Norvasc 5 mg dailyBP stable Anxiety 19147626 F41.1 Schedule Hydroxyzin e 50 mg QHS and Q6h prnMonitor for effect [id number] Naty Izquierdo [facility] on [address] [place] [address] 04/22/2018 11:30:54 04/27/2018 12:11:17 Closed fracture of left ankle 1230874248 4486635 S82.892A Follow ortho recsNow partial WB to LLEF/u with ortho as scheduled cont. PT/OT Diabetes mellitus 527347 09 E11.9 Blood glucose improving but not at goalGlybur fernanda 10 mg daily Metformin 1000 mg BIDIncreas e Lantus 45 units QHS SS insulinMon itor accuchecks Polysubstance abuse 4452 57896 F19.10 Maintained on suboxone Essential hypertension 94203797 I10 Norvasc 5 mg dailyBP stable Paraseptal emphysema 318 [address] with contrast-w ill schedule now Shoulder joint pain 2679 56355 M25.511 X-ray negativeHa s MRI scheduled by orthoLidoc hawk Abbottlen ol 1000 [place] [id number] Naty Izquierdo [facility] on [address] [place] [address] 04/30/2018 13:59:13 05/04/2018 11:47:32 Closed fracture of left ankle 2932291787 0585607 S82.892A Follow ortho recsNow partial WB to LLEF/u with ortho as scheduled cont. PT/OT Diabetes mellitus 662954 09 E11.9 Blood glucose improving but not at goalDiscus sed improving nutrition with patientGly buride 10 mg daily Metformin 1000 mg BIDLantus 45 units QHS-recent ly increased SS insulinMon itor accuchecks Polysubstance abuse 4452 22818 F19.10 Maintained on suboxone Essential hypertension 41164681 I10 Norvasc 5 mg dailyBP stable [id number] Naty Izquierdo [facility] on [address] [place] [phone] 05/12/2018 12:04:30 05/14/2018 10:38:44 Closed fracture of left ankle 4188486363 8299428 S82.892A Follow ortho recsPartia l WB to LLE until cleared by orthoF/u with ortho next week cont. PT/OT Diabetes mellitus 161453 09 E11.9 Blood glucose much improvedCo nt.Glyburi de 10 mg daily Metformin 1000 mg BIDLantus 45 units QHS SS insulinMon itor accuchecks Polysubstance abuse 4452 60487 F19.10 Maintained on suboxone Essential hypertension 67893703 I10 Norvasc 5 mg dailyBP stable [id number] Naty Izquierdo [facility] on [address] [place] [address] 05/21/2018 10:05:01 05/25/2018 15:19:08 Closed fracture of left ankle 0307901446 9692540 S82.892A Follow ortho recsWBAT to LLEcont. PT/OT to maximize function. Monitor. Diabetes mellitus 796705 09 E11.9 Blood glucose at goal, mostly <200Cont. Glyburide 10 mg dailyMetfo rmin 1000 mg BIDLantus 45 units QHS SS insulinMon itor accuchecks . Monitor s/s of hypo/hyper glycemia Polysubstance abuse 4452 44767 F19.10 Maintained on suboxone Essential hypertension 16907084 I10 Norvasc 5 mg dailyBP at goal & stable. DBP 86. Continue to monitor trends and titrate med regimen prn. monitor Closed fra cture of scapula 39232080 S42.102D PT/OT to increase ROM & maximize function.l idocaine patchibupr ofen 600 mg q 6 hrs & q 8 hrs prn with food. Monitor for pain control. [place]. [id number] Naty Izquierdo [facility] on [address] [place] [address] 05/25/2018 16:06:21 06/01/2018 08:39:37 Closed fracture of left ankle 4569509492 0276287 S82.892A Follow ortho recsWBAT to LLE in fracture bootF/u with ortho in 6 weeks (last seen 05/19) Closed fra cture of scapula 97609149 S42.102D WBAT to left upper extremityA ppears healed Diabetes mellitus 942899 09 E11.9 Blood glucose at goal, mostly <200Cont. Glyburide 10 mg dailyMetfo rmin 1000 mg BIDLantus 45 units QHS SS insulinF/u with PCP Polysubstance abuse 4452 13514 F19.10 Maintained on suboxoneFo llows with suboxone clinic Essential hypertension 38257316 I10 Norvasc 5 mg dailyBP stableF/u with PCP Gastroesop hageal reflux disease without esophagitis 641877366 K21.9 Omeprazole 20 mg BID Paraseptal emphysema [address] with contrastF/ u with PCP Shoulder joint pain 2679 07030 M25.511 X-ray negativeHa s MRI scheduled by ortho Health Concerns Section Related Observation LastModified by Organization Detai ls LastModified Time None Recorded Concern Status LastModified by Organization Details LastModified Time None Recorded Advance Directives Directive Y: Full code Payers Encounter Date Sequence Insurance Name Policy Number Policy Hawkins Covered Member ID Hawkins Member ID Guarantor Name 04/22/2018 1 [place] [employer] Blank I Rosas [id number] Blank Rosas 04/22/2018 2 [place] Blank Rosas [id number] Blank Rosas 04/30/2018 1 [place] [employer] Blank I Rosas [id number] Blank Rosas 04/30/2018 2 [place] Blank Rosas [id number] Blank Rosas 05/12/2018 1 [place] Blank I Rosas [id number] Blank Orsas 05/12/2018 2 [place] Blank Rosas [id number] Blank Rosas 05/21/2018 1 [place] [employer] Blank I Rosas [id number] Blank Rosas 05/21/2018 2 [place] Blank Rosas [id number] Blank Rosas 05/25/2018 1 [place] [employer] Blank I Rosas [id number] Blank Rosas 05/25/2018 2 [place] Blank Rosas [id number] Blank Rosas Notes Date Note Type Note Provider Name and Address Organization Details Recorded Time 04/22/2018 text/html 52 yo female see n for acute rounding visit. Patient here for rehab after hospitalization with left scapular fracture and left ankle fracture secondary to fall. Patient now partial weight bearing to left leg. Patient reports pain most severe in right shoulder-is being worked up for this by [id number] negative, has MRI scheduled. Naty downey [place] - [facility] 04/22/2018 12:15:27 04/30/2018 text/html 52 yo female see n for acute rounding visit. Patient here for rehab after hospitalization with left scapular fracture and left ankle fracture secondary to fall. Patient now partial weight bearing to left leg. Patient reports improvement in pain. Review of blood sugars show improvement however on exam today note patient has large regular tonia alfonso and cola at bedside. Discussed with patient importance of adhering to diabetic diet-recommend diet soda or water. Naty downey [facility] 04/30/2018 14:13:37 05/12/2018 text/html 52 yo female see n for acute rounding visit. Patient here for rehab after hospitalization with left scapular fracture and left ankle fracture secondary to fall. Patient remains partial weight bearing to left leg. Has f/u with ortho scheduled next week to reassess wt bearing status. Naty downey [facility] [facility] 05/12/2018 12:12:41 05/21/2018 text/html 52 yo female see n for acute rounding visit. Patient here for rehab after hospitalization with left scapular fracture and left ankle fracture secondary to fall. Pt had f/u with ortho 2 days ago with rec's provided for WBAT to left foot and cont with PT OT to improve ROM and maximize function. Naty downey [facility] [facility] 05/21/2018 11:29:01 05/25/2018 text/html 52 yo female see n in preparation for discharge home tomorrow. Patient here for rehab after hospitalization with acute renal failure and toxic/metabolic encephalopathy. Patient with fall and found to have left scapular fracture and left ankle fracture. Incidental findings of pulmonary paraseptal emphysema and suspected lymphadenopathy on CT, recommend repeat CT outpatient. Patient doing well. Ortho has now cleared patient to WBAT to left leg. Patient reports pain well controlled. Naty downey [facility] [facility] 05/25/2018 16:39:37 OBGyn Episode No OBEpisode recorded.
--- OUTSIDE RECORDS SUMMARY | 2024-09-06 19:45 | XMS_ITS | Encounter Summary ---
Author Organization [facility] Address [address] [facility] 7 [place] [address] Care Team Providers Care Molding Manager Name Role Phone Walter Aiken MD Primary Care Provider [phone] Reason for Referral * PFT (Routine) - Closed Specialty Diagnoses / Procedures Referred By Myra aguilera Referred To Contact Diagnoses SOB (shortness of breath) Procedures Pulmonary Function Test Walter Aiken MD [address] [place] [address] Phone: tel: fax: [facility] Referral ID Status Reason Start Date Expiration Date Visits Re quested Visits Authorized [id number] Closed 02/05/2024 02/04/2025 1 1 Encounter Details Date Type Department Care Team ([facility] st Contact Info) Description 02/05/2024 Orders Only [facility] [address] [place] [address] Walter Aiken MD [address] [place], [place] [id number] SOB (shortness of breath) (Primary Dx) Social History Tobacco Use Types [...] Type Priority Associated Diagnoses Orde r Schedule XR Chest 2 Views Imaging Routine SOB (shortness of breath) Expected: 02/05/2024, Expires: 02/04/2025 Pulmonary Function Test PFT Routine SOB (shortness of breath) Expected: 02/05/2024, Expires: 08/07/2024 documented as of this encounter Visit Diagnoses Diagnosis SOB (shortness of breath)- Primary Shortness of breath documented in this encounter Care Teams Molding Manager Relationship Specialty Start Date End Date Walter Aiken MD [address] [place] [id number] PCP - General Internal Medicine 04/05/14 [facility] 08/20/22 documented as of this encounter
--- OUTSIDE RECORDS SUMMARY | 2024-09-06 19:45 | XMS_ITS | Encounter Summary ---
Author Organization [employer] Address [address] [place] [address] Care Team Providers Care Music Assistant Name Role Phone Walter Aiekn MD Primary Care Provider [phone] Reason for Visit * Reason Onset Date Comments Nurse Triage 02/17/2023 Encounter Details Date Type Department Care Team ([facility] st Contact Info) Description 02/17/2023 Telephone [facility] [address] [facility] [place] [id number] Walter Aiken MD [address] [place] [address] Nurse Triage Social History Tobacco Use Types [...] Telephone Encounter - Keara John RN - 02/17/2023 11:30 AM EDT Triage call Pt reports fell weeks ago and had been limping and in pain all that time. Pt injured left ankle with fall and decided to go to ED 02/16/23, [facility] [place] showed fracture of right ankle. Pt hasbeen using a cane to walk with. Pt is taking ibuprofen for pain relief without good effect. Pt requests apt only with PCP Dr. Aiken. Declines to be seen. Pt has upcoming apt 02/24/23 with PCP. Advised Pt will forward this information to PCP and Pt agrees with this plan. Protocol Used: No Protocol Available (Adult) Protocol-Based Disposition: See in Office or Video Visit within 2 Weeks Video visit not offered Positive Triage Question: * Nursing judgment * All higher-acuity triage questions were negative Care Advice Discussed: * Reasons To Call Back - New symptoms develop - You become worse * Telephone Encounter - Mary Kyle - 02/17/2023 11:03 AM EDT Patient calling to report had broke her leg couple days ago and medication that was prescribed doesnot seem to be working for the pain . Patient speaks [place]. Advised triage nurse will call patient back. documented in this encounter Plan of Treatment Not on file documented as of this encounter Visit Diagnoses Not on filedocumented in this encounter Care Teams Music Assistant Relationship Specialty Start Date End Date Walter Aiken MD [address] [place] [id number] PCP - General Internal Medicine 04/05/14 [employer] 08/20/22 documented as of this encounter
[2024-09-07 08:07] LABS: Syphilis Screen Nonreactive (Nonreactive)
== END 2024-09-06 15:43 | disposition home or self-care (01) ==
LOC: HO.CHCLDS 15:42
PROVIDERS: PCP Internal Medicine; Visit Provider Internal Medicine
DX: K62.5 Hemorrhage of anus and rectum (principal); R41.3 Other amnesia; R53.83 Other fatigue
CPT/HCPCS: 36415; 80053; 82607; 82746; 83735; 84443; 85025; 86780

== ENCOUNTER 2024-09-24 20:31 | Emergency (ER) | payer MEDICARE, MEDICAID, SELFPAY ==
--- NOTE | ~2024-09-24 | XR_ITS ---
CLINICAL HISTORY: trauma 1 view chest x-ray Comparison: CR/SR - XR CHEST 1V - 07/07/23 01:45 EST Findings: Scarring in the lateral left lung is present. No large effusion. No pneumothorax. Heart size is normal. Multiple old healed posterior right rib fractures. IMPRESSION: 1. No acute findings. This document has been electronically signed by: Fabian Vera MD on 09/24/2024 21:30:35
--- NOTE | ~2024-09-24 | CT_ITS ---
CLINICAL HISTORY: trauma CT cervical spine without contrast Comparison: CT/SR - CT CERVICAL SPINE WO IV CON - 03/19/23 22:59 EDT Findings: There is motion artifact throughout the cervical spine images. Within the limitations of motion artifact, no fracture deformity seen. Vertebral alignment is within normal limits. No significant degenerative change. No acute fractures or dislocations. Visualized intracranial contents are unremarkable. Soft tissues of the neck are normal. There is small volume mediastinal gas in the superior mediastinum as well as small volume extrapleural gas at the left lung apex. There is extensive paraseptal emphysema at the lung apices. No pneumothorax visualized. IMPRESSION: 1. No cervical spine fracture identified within the limitations of motion artifact. 2. Pneumomediastinum extending into the extrapleural left lung apex. This document has been electronically signed by: Fabian Vera MD on 09/24/2024 21:41:04
--- NOTE | ~2024-09-24 | XR_ITS ---
CLINICAL HISTORY: Fall 1 view pelvis Comparison: CR/SR - XR PELVIS 1-2V - 01/15/24 10:00 EDT Findings: No acute fracture or dislocation. Pelvic rings appear intact. Mild to moderate degenerative change of the hips. Soft tissues are unremarkable. IMPRESSION: 1. No acute fracture identified. This document has been electronically signed by: Jessy Pisano MD on 09/25/2024 07:32:38
--- NOTE | ~2024-09-24 | CT_ITS ---
CLINICAL HISTORY: trauma CT head without contrast Comparison: CT/SR - CT HEAD/BRAIN WO IV CON - 03/19/23 22:59 EDT Findings: No intra-axial mass, midline shift, hydrocephalus, or acute hemorrhage. Mild cerebral atrophy. The visualized paranasal sinuses and mastoid air cells are normal. The orbits are within normal limits. There is no acute fracture. IMPRESSION: 1. No acute intracranial findings. This document has been electronically signed by: Fabian Vera MD on 09/24/2024 21:44:06
[2024-09-24 20:40] VITALS: BP 147/108; BP 176/77; PULSE 78; PULSE 84; RESP 16; TEMP 36.8; O2SAT 98; O2SAT 99; BMI 29.6
--- NOTE | 2024-09-24 20:43 | ECG_ITS ---
Test Reason : FALL Blood Pressure : */* mmHG Vent. Rate : 74 BPM Atrial Rate : 74 BPM P-R Int : 136 ms QRS Dur : 70 ms QT Int : 420 ms P-R-T Axes : 55 53 53 degrees QTcB Int : 466 ms Normal sinus rhythm Normal ECG When compared with ECG of 16-May-2024 01:15, No significant change was found Referred By: Neel Hankins Electronically Signed By: HUSSAIN FERNANDEZ MD
[2024-09-24 21:55] LABS: MANUAL DIFF FLAG NO
[2024-09-24 21:57] LABS: Basophils Absolute Auto 0.1 X10*3/uL (0.0-0.2); Basophils Percent Auto 0.4 % (0-2); Eosinophils Absolute Auto 0.1 X10*3/uL (0.0-0.4); Eosinophils Percent Auto 0.4 % (0-4); Hematocrit 35.3 % (37.0-47.0); Hemoglobin 11.4 g/dl (12.0-16.0); Imm Gran Abs Auto 0.05 X10*3/uL (0.00-0.03); Imm Gran Pct Auto 0.4 % (0.0-0.4); Lymphocytes Absolute Auto 1.8 X10*3/uL (1.2-4.9); Lymphocytes Percent Auto 13.8 % (20-40); Mean Corpuscular HGB Conc 32.3 g/dl (31.0-35.0); Mean Corpuscular Hemoglobin 28.2 pg (27.0-33.0); Mean Corpuscular Volume 87.4 fL (80.0-98.0); Mean Platelet Volume 10.8 fL (9.4-12.3); Monocytes Absolute Auto 0.7 X10*3/uL (0.1-1.2); Monocytes Percent Auto 5.4 % (2-11); Neutrophils Absolute Auto 10.1 x10*3/uL (2.0-8.3); Neutrophils Percent Auto 79.6 % (45-73); Platelet Count 311 X10*3/uL (160-400); Red Blood Count 4.04 X10*6/uL (4.20-5.50); Red Cell Distribution Width 15.2 % (11.0-16.0); White Blood Count 12.7 X10*3/uL (4.8-10.8)
[2024-09-24 22:11] VITALS: BP 165/75; PULSE 74; RESP 16; TEMP 37.1; O2SAT 94
[2024-09-24 22:13] LABS: Lactic Acid 1.5 mmol/L (0.5-2.0)
[2024-09-24 22:15] LABS: Alanine Aminotransferase 10 U/L (0-31); Albumin Level 3.6 g/dL (3.5-5.0); Alkaline Phosphatase 133 U/L (39-117); Anion Gap 16 (12-20); Aspartate Amino Transferase 25 U/L (5-31); Bilirubin Total 0.4 mg/dL (0.0-1.0); Blood Urea Nitrogen 32 mg/dL (9-16); Calcium 9.6 mg/dL (8.4-10.2); Carbon Dioxide 21 mmol/L (22-29); Chloride 109 mmol/L (96-108); Estimated Glomerular Filt Rate > 60; Ethanol < 10 mg/dL; Glucose Random 165 mg/dL (60-115); Lipase 6 U/L (8-78); Potassium 4.5 mmol/L (3.3-5.1); Sodium 141 mmol/L (135-145); Total Protein 8.8 g/dL (6.5-8.0)
[2024-09-24 22:24] LABS: Troponin-I High Sensitivity 6.1 ng/L (<3.5-17.0)
--- NOTE | 2024-09-24 22:33 | ED_ITS ---
HPI - General Adult General Chief complaint: Fall Stated complaint: FALL, NONVERBAL, SQUEEZING EYES SHUT Time Seen by Provider: 09/24/24 20:36 Source: patient, RN notes reviewed and old records reviewed Mode of arrival: EMS Limitations: altered mental status History of Present Illness ED Provider: Cr HPI narrative: 58-year-old female with past medical history significant for diabetes, hypertension, opioid use disorder, chronic kidney disease presents for evaluation after being found on the ground by her son. Per EMS, the patient's son came to check on her after not hearing from her all day. He found her on the ground not responding. Per EMS, the patient would open her eyes but was not able to verbalize anything She was not verbally commands when EMS arrived She was 2 small abrasions/lacerations to her forehead The patient offers no complaints She denies drug use today Related Data Home Medications ?Medication ?Instructions ?Recorded ?Confirmed baclofen 10 mg tablet 1 tab PO TID 04/19/22 09/02/23 docusate sodium 100 mg capsule 1 cap PO BEDTIME PRN constipation 04/19/22 09/02/23 ferrous sulfate 325 mg (65 mg 325 mg PO DAILY 04/19/22 09/02/23 iron) tablet (FeroSul) fluoxetine 20 mg capsule 2 cap PO DAILY 04/19/22 09/02/23 gabapentin 800 mg tablet 1 tab PO TID 04/19/22 09/02/23 insulin glargine 100 unit/mL 30 unit subcut BEDTIME 04/19/22 09/02/23 subcutaneous solution (Lantus U-100 Insulin) linagliptin 5 mg tablet (Tradjenta) 1 tab PO DAILY 04/19/22 09/02/23 metformin 1,000 mg tablet 1 tab PO BID 04/19/22 09/02/23 pantoprazole 40 mg tablet,delayed 1 tab PO DAILY@0630 04/19/22 09/02/23 release methadone 10 mg/mL oral 115 mg PO DAILY 04/21/22 09/02/23 concentrate (Methadone Intensol) ibuprofen 600 mg tablet 600 mg PO TID PRN Pain 07/07/23 09/02/23 lisinopril 20 1 tab PO DAILY 07/16/24 mg-hydrochlorothiazide 12.5 mg tablet mirtazapine 30 mg disintegrating 30 mg PO BEDTIME 07/16/24 tablet simvastatin 40 mg tablet 40 mg PO BEDTIME 07/16/24 Previous Rx's ?Medication ?Instructions ?Recorded cefdinir 300 mg capsule 300 mg PO BID #16 caps 07/09/23 naloxone 4 mg/actuation nasal spray 4 mg intranasal Q2M PRN opioid 07/09/23 overdose #2 ea Allergies Allergy/AdvReac Type Severity Reaction Status Date / Time Penicillins Allergy Mild HIVES Verified 09/24/24 20:44 Review of Systems 2 Constitutional: Constitutional: Denies body ache(s), Denies chills, Denies fever(s) and Denies headache(s) Eyes: Eyes: Denies blurry vision ENT: Denies vertigo, Denies dizziness and Denies headache(s) Cardiovascular: Cardiovascular: Denies chest pain and Denies dyspnea Respiratory: Respiratory: Denies cough and Denies dyspnea Gastrointestinal: Gastrointestinal: Denies abdominal pain, Denies nausea and Denies vomiting Musculoskeletal: Musculoskeletal: Denies back pain Integumentary/Breasts: Skin/Breast: Denies rash Neurologic: Denies vertigo, Denies dizziness and Denies headache(s) [facility] Past Medical History Medical History Positive blood culture Sepsis Acute kidney injury Acute respiratory failure Acute respiratory alkalosis Lactic acidosis Acute encephalopathy Rhabdomyolysis Opiate use Diabetes HTN (hypertension) Social History Social History Household Members: Family Housing: Apartment Do you presently have visiting nurse or other home services: No Unable to assess alcohol history related to: Unable to respond and Unknown Alcohol intake: never Comment: potential for elopment Patient Tobacco Use Status: Current everyday Tobacco user Tobacco use type: Cigarette Cigarettes Per Day: 5 Smoked in Last 30 Days: Yes e-Cigarette/Vaping Use: Never Used Substance Use Type: Crack/Cocaine and Marijuana Advance Directives: Yes Advance Directives on File: Yes Advance Directives Date on File: 07/10/23 Do you have a plan to hurt others: No Plan service: No Current occupational status: disabled Physical Exam ED Vital Signs: Vital Signs - 24 hr 09/24/24 20:40 09/24/24 22:11 09/25/24 00:00 Temperature 98.2 F 98.7 F 97.9 F Pulse Rate 78 74 70 Respiratory Rate 16 16 17 Blood Pressure 176/77 H 165/75 H 145/59 H Pulse Oximetry 98 94 95 Oxygen Delivery Method Room Air Room Air Room Air 09/25/24 04:15 09/25/24 08:22 Temperature 98.4 F 97.9 F Pulse Rate 70 86 Respiratory Rate 16 18 Blood Pressure 185/70 H 193/79 H Pulse Oximetry 95 98 Oxygen Delivery Method Room Air Room Air BMI result Body Mass Index 29.6 Const Other: The patient is drowsy but arousable to verbal stimuli General: healthy appearing, comfortable, no acute distress and alert Nutritional Appearance: well nourished Orientation/consciousness: patient oriented x3 HENMT Other: There are 2 small, superficial linear horizontal lacerations to the center of the forehead. No deep wounds, no active bleeding. Eyes Eyelids: Yes eyelids normal Conjunctivae: conjunctivae normal Sclerae: sclerae normal Corneas: corneas normal Pupils: Equal, round and reactive pupils present EOM: EOMs intact bilaterally Neck Neck: Yes full ROM Resp Effort & Inspection: normal respiratory effort, able to speak in complete sentences, no audible wheezes and not labored Auscultation: clear to auscultation bilaterally GI Inspection: No distended Palpation (GI): Soft to palpation, not firm, nontender, no guarding and not rigid Skin Other: Chronic wounds to the left barton. Minimal granulomatous tissue surrounding, no beefy red erythema, no foul-smelling discharge General skin exam: no rashes or lesions noted Neuro General: patient oriented x3 Cranial nerves: Yes Equal, round and reactive pupils present and Yes Bilaterally intact EOM present Cognition (Neuro): normal cognition Extrem Other: Moving all extremities well without any obvious deformities Course Reevaluation(s) Reevaluation #1: CT scan of the patient's brain showed no traumatic injuries, CT scan of the cervical spine showed small volume subcutaneous emphysema with pneumomediastinum. I discussed these findings with Dr. Ortiz who recommends no intervention at this time. The patient's lactic acid was within normal limits, this is less likely to be a seizure disorder or postictal state. I suspect the patient is not being completely honest with. Substance abuse. She has a slightly elevated CPK but no evidence of rhabdomyolysis. Ammonia is within normal limits. A straight cath was ordered to collect a urinalysis and tox screen Time: 22:48 Reevaluation #2: Patient signed out to Dr Jackson pending tox screen and dispo. If positive, she will likely require revoery team consult, if negative, will require care team consult. She appears to be at her mental baseline currently. Her emdical workup was negative for acute findings Time: 02:30 Reevaluation #3: 09/25/2024 9:08: Patient was signed out to me at 07:[address] Watson , patient has been medically cleared; pending recovery team evaluation. She was seen by recovery team patient she is not interested in any help. At this point the patient will be discharged home Time: 09:09 Medications Administered Discontinued Medications Generic Name Dose Route Start Last Admin Trade Name Freq PRN Reason Stop Dose Admin Sodium Chloride 1,000 mls @ 999 mls/hr 09/24/24 23:00 09/25/24 00:07 Ns IV 09/25/24 00:00 Infused .Q1H1M GALILEA Infusion Medical Decision Making Medical Decision Making [facility] Narrative: 58-year-old female with past medical history as above presents for evaluation after being found unresponsive. The patient is answering questions appropriately but is quite drowsy and will fall asleep during my evaluation. She denies any pain, she denies any drugs today. She offers no complaints, she was mildly hypertensive but otherwise vital signs are stable. The patient is alert and oriented to person, place, and time. Plan for CT scan of the brain, cervical spine, chest x-ray, EKG, labs, urinalysis with a tox screen Differential Diagnosis Differential Diagnoses: The differential diagnosis associated with the presentation includes Substance abuse Syncope Rhabdomyolysis ACS less likely Pneumonia Bacteremia Admission/Observation Consideration of admission/observation: Escalation of care including admission/observation considered Consult Healthcare Provider Management of the patient was discussed with: Recruitment Assistant (Dr. Ortiz) Lab Data [facility] Lab Attestation statement: I reviewed the patient's lab results. Mild leukocytosis to 12.7. With a left shift. The patient has a mild normocytic anemia consistent with her baseline. Chemistries are significant for a carbon dioxide that is low at 21, the patient is not tachypneic, this is potentially related to metabolic acidosis, there was no active signs of infections. Random glucose elevated to 165. Troponin within normal limits, CK is slightly elevated to 447. We will treat with IV fluids 09/24/24 21:48 09/24/24 21:48 Labs: Lab Results 09/24/24 09/25/24 09/25/24 Range/Units 21:48 01:29 02:03 WBC 12.7 H (4.8-10.8) X10*3/uL RBC 4.04 L (4.20-5.50) X10*6/uL Hgb 11.4 L (12.0-16.0) g/dl Hct 35.3 L (37.0-47.0) % MCV 87.4 (80.0-98.0) fL MCH 28.2 (27.0-33.0) pg MCHC 32.3 (31.0-35.0) g/dl RDW 15.2 (11.0-16.0) % Plt Count 311 (160-400) X10*3/uL MPV 10.8 (9.4-12.3) fL Immature Gran % (Auto) 0.4 (0.0-0.4) % Neut % (Auto) 79.6 H (45-73) % Lymph % (Auto) 13.8 L (20-40) % [place] % (Auto) 5.4 (2-11) % Eos % (Auto) 0.4 (0-4) % Baso % (Auto) 0.4 (0-2) % Lymph # (Auto) 1.8 (1.2-4.9) X10*3/uL [place] # (Auto) 0.7 (0.1-1.2) X10*3/uL Eos # (Auto) 0.1 (0.0-0.4) X10*3/uL Baso # (Auto) 0.1 (0.0-0.2) X10*3/uL Abs Immat Gran (auto) 0.05 H (0.00-0.03) X10*3/uL Absolute Neuts (auto) 10.1 H (2.0-8.3) x10*3/uL Absolute Nucleated RBC 0.000 (0.0-0.012) X10*3/uL Nucleated RBC % (auto) 0.0 (0.0-0.2) /100WBC Sodium 141 (135-145) mmol/L Potassium 4.5 (3.3-5.1) mmol/L Chloride 109 H (96-108) mmol/L Carbon Dioxide 21 L (22-29) mmol/L Anion Gap 16 (12-20) BUN 32 H (9-16) mg/dL Creatinine 0.94 (0.5-1.4) mg/dL Estim Creat Clear Calc 57.0 Estimated GFR > 60 Random Glucose 165 H (60-115) mg/dL Lactic Acid 1.5 (0.5-2.0) mmol/L Calcium 9.6 D (8.4-10.2) mg/dL Total Bilirubin 0.4 (0.0-1.0) mg/dL AST 25 (5-31) U/L ALT 10 (0-31) U/L Alkaline Phosphatase 133 H (39-117) U/L Ammonia 37 (13-55) umol/L Total Creatine Kinase 447 H (26-140) U/L Troponin I High Sens 6.1 (<3.5-17.0) ng/L Total Protein 8.8 H (6.5-8.0) g/dL Albumin 3.6 (3.5-5.0) g/dL Lipase 6 L (8-78) U/L Urine Color Yellow Urine Appearance Clear Urine pH 6.5 (5.0-9.0) Ur Specific [place] 1.020 (1.005-1.025) Urine Protein 300 (3+) H (Neg-Trace) mg/dL Urine Glucose (UA) Negative (Negative) mg/dL Urine Ketones 15 (Negative) mg/dL Urine Blood Negative (Negative) Urine Nitrite Negative (Negative) Ur Leukocyte Esterase Negative (Negative) Urine RBC 0-2 (0-2) /HPF Urine WBC 0-5 (0-5) /HPF Ur Squamous Epith Cells 3-5 (0-2) /HPF Urine Bacteria None Seen (None Seen) Hyaline Casts 0-2 (0-2) /LPF Urine Opiates Screen POSITIVE H (Not Detect) Ur Buprenorphine Scrn Not Detected (Not Detect) ng/mL Ur Oxycodone Screen Not Detected (Not Detect) ng/mL Urine Methadone Screen Positive H (Not Detect) ng/mL Urine Fentanyl Screen POSITIVE H (Not Detect) Ur Barbiturates Screen Not Detected (Not Detect) Ur Phencyclidine Scrn Not Detected (Not Detect) Ur Amphetamines Screen Not Detected (Not Detect) U Benzodiazepines Scrn Not Detected (Not Detect) Urine Cocaine Screen POSITIVE H (Not Detect) U Marijuana (THC) Screen Not Detected (Not Detect) Ethyl Alcohol < 10 mg/dL Influenza Type A (PCR) NEGATIVE (Negative) Influenza Type B (PCR) NEGATIVE (Negative) RSV RNA Qual (PCR) NEGATIVE (Negative) SARS-CoV-2 RNA (RT-PCR) NEGATIVE (Negative) Independent Interpretation I performed an independent interpretation of an: EKG Interpretation: Normal sinus rhythm with a rate of [address] segment changes Discharge Plan Discharge Clinical Impression: Acute alteration in mental status Patient Disposition: Still a Patient Prescriptions: No Action insulin glargine [Lantus U-100 Insulin] 100 unit/mL solution 30 unit subcut BEDTIME gabapentin 800 mg tablet 1 tab PO TID baclofen 10 mg tablet 1 tab PO TID pantoprazole 40 mg tablet,delayed release (DR/EC) 1 tab PO DAILY@0630 ferrous sulfate [FeroSul] 325 mg (65 mg iron) tablet 325 mg PO DAILY metformin 1,000 mg tablet 1 tab PO BID docusate sodium 100 mg capsule 1 cap PO BEDTIME PRN (Reason: constipation) fluoxetine 20 mg capsule 2 cap PO DAILY Tradjenta 5 mg tablet 1 tab PO DAILY methadone [Methadone Intensol] 10 mg/mL Concentrate 115 mg PO DAILY ibuprofen 600 mg tablet 600 mg PO TID PRN (Reason: Pain) cefdinir 300 mg capsule 300 mg PO BID Qty: 16 0RF naloxone 4 mg/actuation spray,non-aerosol 4 mg intranasal Q2M PRN (Reason: opioid overdose) Qty: 2 0RF Rx Instructions: spray 1 dose into ONE nostril; alternate nostrils w each dose until help arrives mirtazapine 30 mg tablet,disintegrating 30 mg PO BEDTIME lisinopril-hydrochlorothiazide 20-12.5 mg tablet 1 tab PO DAILY simvastatin 40 mg tablet 40 mg PO BEDTIME Print Language: Belizean
[2024-09-24 22:34] LABS: Influenza A PCR NEGATIVE (Negative); Influenza B PCR NEGATIVE (Negative); Resp Syncy Virus RNA Qual PCR NEGATIVE (Negative); SARS COV2 PCR INHOUSE NEGATIVE (Negative)
[2024-09-24] MEDS: 0.9 % Sodium Chloride 1,000 ML 999 ML IV (23:04)
[2024-09-25] VITALS: BP 145/59; PULSE 70; RESP 17; TEMP 36.6; O2SAT 95
[2024-09-25 01:43] LABS: Ammonia 37 umol/L (13-55)
[2024-09-25 02:15] LABS: Appearance Urine Clear; Color Urine Yellow; Glucose Urine UA Negative (Negative); Leukocyte Esterase Urine Negative (Negative); Nitrite Urine Negative (Negative); PH 6.5 (5.0-9.0); UMIC TRIGGER UACC YES; Urine Blood Negative (Negative); Urine Ketones 15 mg/dL (Negative); Urine Protein 300 (3+) mg/dL (Neg-Trace)
[2024-09-25 02:25] LABS: Bacteria Urine None Seen (None Seen); Hyaline Casts Urine 0-2 /LPF (0-2); RBC Urine 0-2 /HPF (0-2); WBC Urine 0-5 /HPF (0-5)
[2024-09-25 02:29] LABS: Amphetamine Screen Urine Not Detected (Not Detect); Barbiturates, Urine Not Detected (Not Detect); Benzodiazepines Screen Urine Not Detected (Not Detect); Buprenorphine Scr Not Detected (Not Detect); Cannabinoid Screen Urine Not Detected (Not Detect); Cocaine Screen Urine POSITIVE (Not Detect); Fentanyl, urine POSITIVE (Not Detect); Methadone Screen, Urine Positive (Not Detect); Opiate Screen Urine POSITIVE (Not Detect); Oxycodone Screen Urine Not Detected (Not Detect); Phencyclidine Screen Urine Not Detected (Not Detect)
[2024-09-25 04:15] VITALS: BP 185/70; PULSE 70; RESP 16; TEMP 36.9; O2SAT 95
--- NOTE | 2024-09-25 04:16 | PC.NURSE ---
Dr. Watson informed of BP 185/70, no new orders at this time.
--- NOTE | 2024-09-25 07:13 | PC.NURSE ---
Patient complaints of pain in b/l buttocks after using a bedside commode. Dr. Watson informed, X-Ray of pelvis ordered.
[2024-09-25 08:22] VITALS: BP 193/79; PULSE 86; RESP 18; TEMP 36.6; O2SAT 98
--- NOTE | 2024-09-25 09:30 | PC.NURSE ---
patient is a&ox3, ambulatory with [facility] assist- patient states she walks with a walker at home. pt is wanting to discharge, spoke with recovery nurse this morning as well, pt denies pain/discomfort, call slater within reach, plan of care ongoing. The patient is argumentative and wanting to leave, she is attempting to find a ride.
--- NOTE | 2024-09-25 12:16 | PC.NURSE ---
pt states her son in law is picking her up, pt requested iv taken out and she was helped to get dressed and brought to the placed in a wheelchair awaiting her son in law.
[2024-09-25 12:17] VITALS: BP 158/72; PULSE 78; RESP 18; TEMP 36.7; O2SAT 98
== END 2024-09-25 12:18 | disposition home or self-care (01) ==
PROVIDERS: Physician Assistant; Emergency Provider Emergency Medicine
DX: R41.82 Altered mental status, unspecified (principal); F19.10 Other psychoactive substance abuse, uncomplicated; E11.22 Type 2 diabetes mellitus with diabetic chronic kidney disease; I12.9 Hypertensive chronic kidney disease with stage 1 through stage 4 chronic kidney disease, or unspecified chronic kidney disease; N18.30 Chronic kidney disease, stage 3 unspecified; F17.210 Nicotine dependence, cigarettes, uncomplicated; Z79.4 Long term (current) use of insulin; Z79.84 Long term (current) use of oral hypoglycemic drugs; Z79.899 Other long term (current) drug therapy; Z03.818 Encounter for observation for suspected exposure to other biological agents ruled out
CPT/HCPCS: 0241U; 36415; 51701; 70450; 71045; 72125; 72170; 80053; 80307; 81001; 82140; 82550; 83605; 83690; 84484; 85025; 87040; 93005; 96360; 99285; S9485

== ENCOUNTER → 2024-09-24 20:42 | Outpatient (BNV) | payer MEDICARE, MEDICAID, SELFPAY | PROVIDERS: Visit Provider Radiology Diagnostic Radiology | DX: R07.9 Chest pain, unspecified (principal); S00.93XA Contusion of unspecified part of head, initial encounter; W19.XXXA Unspecified fall, initial encounter | CPT/HCPCS: 70450; 71045; 72125 ==

== ENCOUNTER → 2024-09-24 20:43 | Outpatient (BNV) | payer MEDICARE, MEDICAID, SELFPAY | PROVIDERS: Emergency Provider Emergency Medicine; Visit Provider Internal Medicine Cardiovascular Disease | DX: R41.82 Altered mental status, unspecified (principal); W19.XXXA Unspecified fall, initial encounter | CPT/HCPCS: 93010 ==

== ENCOUNTER → 2024-09-25 06:46 | Outpatient (BNV) | payer MEDICARE, MEDICAID, SELFPAY | PROVIDERS: Emergency Provider Emergency Medicine; Visit Provider Radiology Diagnostic Radiology | DX: R10.2 Pelvic and perineal pain (principal); W19.XXXA Unspecified fall, initial encounter | CPT/HCPCS: 72170 ==

== ENCOUNTER 2024-09-29 13:50 | Outpatient (AMB) | payer MEDICARE, MEDICAID, SELFPAY ==
--- NOTE | 2024-09-29 14:21 | HO.NEPHOV ---
Vital Signs 09/29/24 14:24 Height 4 ft 11 in Weight 134 lb BMI 27.1 BP 80/50 L Blood Pressure Location Lt brachial Position Sitting Pulse 91 Pulse Source Pulse Oximeter Pulse Oximetry (%) 94 Oxygen Delivery Method Room Air Intake Visit Reasons: ENP: CKD STG 3B- Conf Director Of Corporate Marketing Required: No Accompanied by: Other Relationship Allergies Penicillins Allergy (Mild, Verified 10/03/24 20:33) HIVES HPI Comments Details: I had the pleasure of seeing Blank in consultation for CKD. She has a diabetic with history of hypertension as well as opioid and polysubstance abuse. She has not been a good historian. She takes nonsteroidal anti-inflammatories for her aches and pains. She was accompanied by her family member during this visit. She is on CHUCHO inhibitor. She claims to be compliant with medications. She denies nausea, vomiting, diarrhea, chest pain, shortness of breath, paroxysmal nocturnal dyspnea, orthopnea, pedal edema, orthostatic symptoms, epistaxis, hemoptysis, hematemesis, melena, hematuria, urinary symptoms, flank pain, sensorineural deafness, recurrent sore throat, new neurological symptoms. She tries to maintain good hydration. Her recent serum creatinine has been 1.86. [facility] Medical History Tobacco dependence Osteoarthritis of hip Opioid abuse Hypercholesteremia Diabetes type 2, controlled Constipation Anemia Abdominal pain Positive blood culture Sepsis Acute kidney injury Acute respiratory failure Acute respiratory alkalosis Lactic acidosis Acute encephalopathy Rhabdomyolysis Opiate use Diabetes HTN (hypertension) Surgical History Hx of cholecystectomy Family History Sister Colon cancer Diabetes Social History Household Members: Family Housing: Apartment Do you presently have visiting nurse or other home services: No Unable to assess alcohol history related to: Unable to respond and Unknown Alcohol intake: never Comment: potential for elopment Patient Tobacco Use Status: Current everyday Tobacco user Tobacco use type: Cigarette Cigarettes Per Day: 5 e-Cigarette/Vaping Use: Never Used Use of substances other than those prescribed or required for medical reasons: Yes Substance Use Type: Crack/Cocaine Substance Use Frequency: Occasionally Last Used Substance: Just Prior to Admission Any prior treatment program specific to substance use: No Advance Directives: Yes Advance Directives on File: Yes Advance Directives Date on File: 07/10/23 Do you have a plan to hurt others: No Plan service: No Current occupational status: disabled Review of Systems Const All systems reviewed & are unremarkable except as noted in HPI and below Physical Exam Vital Signs: Last Vital Signs Pulse 91 09/29/24 14:24 BP 80/50 L 09/29/24 14:24 Pulse Ox 94 09/29/24 14:24 Oxygen Delivery Method Room Air 09/29/24 14:24 BMI result Body Mass Index 27.1 Const General: comfortable and no acute distress Orientation/consciousness: patient oriented x3 HEENT Head: Yes normocephalic Mouth: Normal oral and palatal mucosa present Eyes EOM: EOMs intact bilaterally Neck Neck: Yes supple Resp Auscultation: clear to auscultation bilaterally Cardio Jugular venous distension: no JVD Rate: regular rate GI Palpation (GI): Soft to palpation Auscultation: normal bowel sounds General: Yes no CVA tenderness Back/Spine/Pelvis Back: no CVA tenderness Skin General skin exam: no rashes or lesions noted Neuro General: patient oriented x3 and moves all extremities Extrem General: Yes no pedal edema Assessment & Plan Assessment & Plan (1) HTN (hypertension): Code(s): I10 - Essential (primary) hypertension Category: Medical Qualifiers: Hypertension type: primary hypertension Qualified Code(s): I10 - Essential (primary) hypertension (2) Proteinuria: Code(s): R80.9 - Proteinuria, unspecified Category: Medical Qualifiers: Proteinuria type: other Qualified Code(s): R80.8 - Other proteinuria (3) CKD stage 3b, GFR 30-44 ml/min: Code(s): N18.32 - Chronic kidney disease, stage 3b Category: Medical Plan Blank has diabetes mellitus and hypertension. She has chronic kidney disease. Her CKD most likely is from diabetic hypertensive renal disease even though differential diagnosis is quite broad at this point in time. I have ordered extensive workup. She is on CHUCHO inhibitor. Her hemoglobin A1c and blood pressure needs to be maintain a goal. She is a candidate for SGLT2 inhibitor. I asked the family to bring all the medications at the next visit. She should maintain good hydration and avoid nonsteroidal anti-inflammatories. She may need a renal biopsy. I did not make any medication changes today but further management is pending evolving data. Answered all questions and follow-up appointment given Orders: Orders Protein Creatinine Ratio, Ur 09/29/24 I10 - Essential (primary) hypertension, R80.9 - Proteinuria, unspecified UA and rflx microscopic 09/29/24 I10 - Essential (primary) hypertension, R80.9 - Proteinuria, unspecified US renal BI 2 Weeks I10 - Essential (primary) hypertension, R80.9 - Proteinuria, unspecified Hepatitis B Surface Antigen 09/29/24 I10 - Essential (primary) hypertension, R80.9 - Proteinuria, unspecified Hepatitis C Antibody Reflex 09/29/24 I10 - Essential (primary) hypertension, R80.9 - Proteinuria, unspecified Electrolytes 09/29/24 I10 - Essential (primary) hypertension, R80.9 - Proteinuria, unspecified Calcium 09/29/24 I10 - Essential (primary) hypertension, R80.9 - Proteinuria, unspecified Anti DNA DS Antibody 09/29/24 I10 - Essential (primary) hypertension, R80.9 - Proteinuria, unspecified Myeloperoxidase Antibody 09/29/24 I10 - Essential (primary) hypertension, R80.9 - Proteinuria, unspecified Proteinase 3 PR3 Antibodies 09/29/24 I10 - Essential (primary) hypertension, R80.9 - Proteinuria, unspecified Anti Glomerular Basement Memb 09/29/24 I10 - Essential (primary) hypertension, R80.9 - Proteinuria, unspecified Complement C3 09/29/24 I10 - Essential (primary) hypertension, R80.9 - Proteinuria, unspecified Immunofixation Pnl, Serum 09/29/24 I10 - Essential (primary) hypertension, R80.9 - Proteinuria, unspecified Phospholipase A2 Receptor Pnl 09/29/24 I10 - Essential (primary) hypertension, R80.9 - Proteinuria, unspecified Protein, 24 Hr Urine Group 09/29/24 R80.9 - Proteinuria, unspecified Hepatitis B Core Antibody 09/29/24 I10 - Essential (primary) hypertension, R80.9 - Proteinuria, unspecified Blood Urea Nitrogen 09/29/24 I10 - Essential (primary) hypertension, R80.9 - Proteinuria, unspecified Creatinine 09/29/24 I10 - Essential (primary) hypertension, R80.9 - Proteinuria, unspecified Complement C4 09/29/24 I10 - Essential (primary) hypertension, R80.9 - Proteinuria, unspecified Coding Level of Care Code New Pt Level 4 (53033) Diagnoses Primary hypertension I10 Hypertension type: primary hypertension Other proteinuria R80.8 Proteinuria type: other CKD stage 3b, GFR 30-44 ml/min N18.32
[2024-09-29 14:24] VITALS: BP 80/50; PULSE 91; O2SAT 94; BMI 27.1
== END 2024-09-29 14:53 | disposition home or self-care (01) ==
LOC: HO.HKAS 13:50
PROVIDERS: PCP Internal Medicine; Referring Provider Internal Medicine; Visit Provider Internal Medicine Nephrology
DX: I10 Essential (primary) hypertension (principal); R80.8 Other proteinuria; N18.32 Chronic kidney disease, stage 3b
CPT/HCPCS: 99204

== ENCOUNTER → 2024-09-29 13:50 | Outpatient (BNVA) | payer MEDICARE, MEDICAID, SELFPAY | PROVIDERS: PCP Internal Medicine; Referring Provider Internal Medicine; Visit Provider Internal Medicine Nephrology | DX: I12.9 Hypertensive chronic kidney disease with stage 1 through stage 4 chronic kidney disease, or unspecified chronic kidney disease (principal); N18.32 Chronic kidney disease, stage 3b; R80.8 Other proteinuria | CPT/HCPCS: 99202 ==

== ENCOUNTER 2024-10-03 20:16 | Emergency (ER) | payer MEDICARE, MEDICAID, SELFPAY ==
--- NOTE | ~2024-10-03 | XR_ITS ---
CLINICAL HISTORY: left leg wound. osteomyelitits? 2 view left tibia-fibula Comparison: CR/WI/SR - XR TIBIA FIBULA LT 2V - 01/15/24 10:03 EDT Findings No fractures or dislocations. No radiopaque foreign body. IMPRESSION: 1. Normal left tibia-fibula This document has been electronically signed by: Aiden Fuller MD on 10/03/2024 21:26:27
--- NOTE | ~2024-10-03 | XR_ITS ---
CLINICAL HISTORY: cheat pain 1 view chest x-ray Comparison: CR - XR CHEST 1V - 09/24/24 20:55 EDT Findings: Diffuse interstitial prominence in both lungs may represent pulmonary vascular congestion/fluid overload. Heart size is normal. No acute fracture. IMPRESSION: Diffuse interstitial prominence in both lungs may represent pulmonary vascular congestion/fluid overload. This document has been electronically signed by: Aiden Fuller MD on 10/03/2024 21:28:10
--- NOTE | 2024-10-03 20:18 | ECG_ITS ---
Test Reason : cp Blood Pressure : */* mmHG Vent. Rate : 75 BPM Atrial Rate : 75 BPM P-R Int : 126 ms QRS Dur : 80 ms QT Int : 436 ms P-R-T Axes : 59 57 62 degrees QTcB Int : 486 ms Normal sinus rhythm Prolonged QT Abnormal ECG When compared with ECG of 24-Sep-2024 20:36, No significant change was found Referred By: Denton Castaneda Electronically Signed By: YAMILETH SCHMITT
[2024-10-03 20:26] VITALS: BP 125/55; PULSE 79; RESP 14; TEMP 36.6; O2SAT 95; BMI 29.3
--- NOTE | 2024-10-03 20:34 | ED.GENADULT ---
HPI - General Adult General Chief complaint: Chest Pain Stated complaint: chest pain / wound on left barton wants to check Time Seen by Provider: 10/03/24 22:47 Source: patient and family Mode of arrival: ambulatory Limitations: no limitations History of Present Illness ED Provider: HPI narrative: Patient's history of opiate abuse under increased stress her yesterday in grieving reaction patient told his son that he wants to go where her gone patient when came was very lethargic according to son patient took heroin earlier no prior history of suicide. Patient is diabetic and has nonhealing ulcer left barton Related Data Home Medications ?Medication ?Instructions ?Recorded ?Confirmed baclofen 10 mg tablet 1 tab PO TID 04/19/22 09/02/23 docusate sodium 100 mg capsule 1 cap PO BEDTIME PRN constipation 04/19/22 09/02/23 ferrous sulfate 325 mg (65 mg 325 mg PO DAILY 04/19/22 09/02/23 iron) tablet (FeroSul) fluoxetine 20 mg capsule 2 cap PO DAILY 04/19/22 09/02/23 gabapentin 800 mg tablet 1 tab PO TID 04/19/22 09/02/23 insulin glargine 100 unit/mL 30 unit subcut BEDTIME 04/19/22 09/02/23 subcutaneous solution (Lantus U-100 Insulin) linagliptin 5 mg tablet (Tradjenta) 1 tab PO DAILY 04/19/22 09/02/23 metformin 1,000 mg tablet 1 tab PO BID 04/19/22 09/02/23 pantoprazole 40 mg tablet,delayed 1 tab PO DAILY@0630 04/19/22 09/02/23 release methadone 10 mg/mL oral 115 mg PO DAILY 04/21/22 09/02/23 concentrate (Methadone Intensol) ibuprofen 600 mg tablet 600 mg PO TID PRN Pain 07/07/23 09/02/23 lisinopril 20 1 tab PO DAILY 07/16/24 mg-hydrochlorothiazide 12.5 mg tablet mirtazapine 30 mg disintegrating 30 mg PO BEDTIME 07/16/24 tablet simvastatin 40 mg tablet 40 mg PO BEDTIME 07/16/24 Previous Rx's ?Medication ?Instructions ?Recorded cefdinir 300 mg capsule 300 mg PO BID #16 caps 07/09/23 naloxone 4 mg/actuation nasal spray 4 mg intranasal Q2M PRN opioid 07/09/23 overdose #2 ea Allergies Allergy/AdvReac Type Severity Reaction Status Date / Time Penicillins Allergy Mild HIVES Verified 10/03/24 20:33 Review of Systems Review of Systems: Yes all other systems are reviewed and are negative [facility] Past Medical History Medical History Tobacco dependence Osteoarthritis of hip Opioid abuse Hypercholesteremia Diabetes type 2, controlled Constipation Anemia Abdominal pain Positive blood culture Sepsis Acute kidney injury Acute respiratory failure Acute respiratory alkalosis Lactic acidosis Acute encephalopathy Rhabdomyolysis Opiate use Diabetes HTN (hypertension) Surgical History Hx of cholecystectomy Family History Family History Sister Colon cancer Diabetes Social History Social History Household Members: Family Housing: Apartment Do you presently have visiting nurse or other home services: No Unable to assess alcohol history related to: Unable to respond and Unknown Alcohol intake: never Comment: potential for elopment Patient Tobacco Use Status: Current everyday Tobacco user Tobacco use type: Cigarette Cigarettes Per Day: 5 e-Cigarette/Vaping Use: Never Used Use of substances other than those prescribed or required for medical reasons: Yes Substance Use Type: Crack/Cocaine Substance Use Frequency: Occasionally Last Used Substance: Just Prior to Admission Any prior treatment program specific to substance use: No Advance Directives: Yes Advance Directives on File: Yes Advance Directives Date on File: 07/10/23 Do you have a plan to hurt others: No Plan service: No Current occupational status: disabled Physical Exam ED Vital Signs: Vital Signs - 24 hr 10/03/24 20:26 10/03/24 22:30 10/03/24 23:20 Temperature 97.9 F Pulse Rate 79 57 62 Respiratory Rate 14 16 16 Blood Pressure 125/55 L 118/46 L 93/39 L Pulse Oximetry 95 Oxygen Delivery Method Room Air 10/04/24 00:25 10/04/24 01:50 10/04/24 02:27 Temperature Pulse Rate 67 66 70 Respiratory Rate 16 14 16 Blood Pressure 133/58 L 94/43 L 134/61 Pulse Oximetry 94 Oxygen Delivery Method Room Air 10/04/24 02:51 10/04/24 06:13 Temperature Pulse Rate 65 85 Respiratory Rate 16 16 Blood Pressure 127/54 L 143/55 H Pulse Oximetry 97 Oxygen Delivery Method Room Air BMI result Body Mass Index 29.3 Appearance: Sleepy No acute distress. Eyes: PERRLA, No Nystagmus ENT: Pharynx normal. Oral Mucosa moist Neck: Normal inspection. Neck supple. CVS: Normal heart rate and rhythm. Pulses normal. Respiratory: No respiratory distress. Equal air entry bilateral, no wheezing/rales/rhonchi Abdomen: Soft and nontender. Bowel sounds are present, no mass palpable, no CVA tenderness Skin: Skin warm and dry. Normal skin color. Normal skin turgor. Extremities: No lower extremity edema. No calf tenderness psych: Evaluated after patient's woke up says that she had not suicidal have any significant depression Neuro: Oriented X 3. No motor deficit. No sensory deficit.No cerebellar signs , cranial nerves II-XII intact Course Course Course Narrative: RME: 58-year-old female history of opioid abuse presents to ED for chest pain and also left barton wound. [place] chest pain for 3 days and his father her partner this morning which made the chest pain worse. Also admits patient is using heroin before coming to the ED. patient has left chronic wound that thinks it is infected. Lab Reevaluation(s) Reevaluation #1: VSS, labs were reviewed and within baseline for the patient, patient currently feels much better than last night, no SI, no HI, patient will be discharged to her sister's house. Time: 09:31 Medications Administered Discontinued Medications Generic Name Dose Route Start Last Admin Trade Name Freq PRN Reason Stop Dose Admin Sodium Chloride 1,000 mls @ 999 mls/hr 10/03/24 23:05 10/04/24 01:15 Ns IV 10/04/24 00:05 Infused .Q1H1M ONE Infusion Medical Decision Making Medical Decision Making [facility] Narrative: Patient's history of opiate abuse yesterday under grieving reaction patient's said to the family that she wants to go where her gone , at the time of arrival patient' was sleepy denied any use of opiates but son said that she used. On reexamination at 06:00 patient is fully awake and alert denied any recent use of opiates feels under stress but denies any suicidal ideation agreed to see care team patient's urine was positive fentanyl and cocaine Lab Data MDM Lab Attestation statement: I reviewed the patient's lab results. 10/03/24 20:40 10/03/24 20:40 Labs: Lab Results 10/03/24 10/04/24 Range/Units 20:40 05:16 WBC 8.5 (4.8-10.8) X10*3/uL RBC 3.89 L (4.20-5.50) X10*6/uL Hgb 10.9 L (12.0-16.0) g/dl Hct 34.2 L (37.0-47.0) % MCV 87.9 (80.0-98.0) fL MCH 28.0 (27.0-33.0) pg MCHC 31.9 (31.0-35.0) g/dl RDW 15.3 (11.0-16.0) % Plt Count 357 (160-400) X10*3/uL MPV 10.7 (9.4-12.3) fL Immature Gran % (Auto) 0.2 (0.0-0.4) % Neut % (Auto) 77.1 H (45-73) % Lymph % (Auto) 17.3 L (20-40) % [place] % (Auto) 4.2 (2-11) % Eos % (Auto) 0.6 (0-4) % Baso % (Auto) 0.6 (0-2) % Lymph # (Auto) 1.5 (1.2-4.9) X10*3/uL [place] # (Auto) 0.4 (0.1-1.2) X10*3/uL Eos # (Auto) 0.1 (0.0-0.4) X10*3/uL Baso # (Auto) 0.1 (0.0-0.2) X10*3/uL Abs Immat Gran (auto) 0.02 (0.00-0.03) X10*3/uL Absolute Neuts (auto) 6.6 (2.0-8.3) x10*3/uL Absolute Nucleated RBC 0.000 (0.0-0.012) X10*3/uL Nucleated RBC % (auto) 0.0 (0.0-0.2) /100WBC ESR 100 H (0-20) MM/HR PT 12.5 H (10.9-12.4) SEC INR 1.1 (0.9-1.1) APTT 31.9 (26.0-36.8) SEC Sodium 140 (135-145) mmol/L Potassium 4.7 (3.3-5.1) mmol/L Chloride 106 (96-108) mmol/L Carbon Dioxide 23 (22-29) mmol/L Anion Gap 16 (12-20) BUN 29 H (9-16) mg/dL Creatinine 1.42 H (0.5-1.4) mg/dL Estim Creat Clear Calc 36.0 Estimated GFR 38 Random Glucose 334 H (60-115) mg/dL Calcium 9.6 (8.4-10.2) mg/dL Total Bilirubin 0.2 (0.0-1.0) mg/dL AST 22 (5-31) U/L ALT 20 (0-31) U/L Alkaline Phosphatase 118 H (39-117) U/L Troponin I High Sens 5.3 (<3.5-17.0) ng/L C-Reactive Protein 4.82 H (< or = 0.50) mg/dL B-Natriuretic Peptide 103 H (<100) pg/mL Total Protein 7.7 (6.5-8.0) g/dL Albumin 3.3 L (3.5-5.0) g/dL Urine Opiates Screen POSITIVE H (Not Detect) Ur Buprenorphine Scrn Not Detected (Not Detect) ng/mL Ur Oxycodone Screen Not Detected (Not Detect) ng/mL Urine Methadone Screen Positive H (Not Detect) ng/mL Urine Fentanyl Screen POSITIVE H (Not Detect) Ur Barbiturates Screen Not Detected (Not Detect) Ur Phencyclidine Scrn Not Detected (Not Detect) Ur Amphetamines Screen Not Detected (Not Detect) U Benzodiazepines Scrn Not Detected (Not Detect) Urine Cocaine Screen POSITIVE H (Not Detect) U Marijuana (THC) Screen Not Detected (Not Detect) Ethyl Alcohol < 10 mg/dL Independent Interpretation I performed an independent interpretation of an: EKG Interpretation: Normal sinus rhythm heart rate 75 beats per minute prolonged QTC interval of [address]-T changes no acute ischemia no significant change from the previous EKGs Discharge Plan Discharge Clinical Impression: Polysubstance abuse, Grieving Patient Disposition: Home, Self-Care Instructions: Grief and Loss (ED) Prescriptions: No Action insulin glargine [Lantus U-100 Insulin] 100 unit/mL solution 30 unit subcut BEDTIME gabapentin 800 mg tablet 1 tab PO TID baclofen 10 mg tablet 1 tab PO TID pantoprazole 40 mg tablet,delayed release (DR/EC) 1 tab PO DAILY@0630 ferrous sulfate [FeroSul] 325 mg (65 mg iron) tablet 325 mg PO DAILY metformin 1,000 mg tablet 1 tab PO BID docusate sodium 100 mg capsule 1 cap PO BEDTIME PRN (Reason: constipation) fluoxetine 20 mg capsule 2 cap PO DAILY Tradjenta 5 mg tablet 1 tab PO DAILY methadone [Methadone Intensol] 10 mg/mL Concentrate 115 mg PO DAILY ibuprofen 600 mg tablet 600 mg PO TID PRN (Reason: Pain) cefdinir 300 mg capsule 300 mg PO BID Qty: 16 0RF naloxone 4 mg/actuation spray,non-aerosol 4 mg intranasal Q2M PRN (Reason: opioid overdose) Qty: 2 0RF Rx Instructions: spray 1 dose into ONE nostril; alternate nostrils w each dose until help arrives mirtazapine 30 mg tablet,disintegrating 30 mg PO BEDTIME lisinopril-hydrochlorothiazide 20-12.5 mg tablet 1 tab PO DAILY simvastatin 40 mg tablet 40 mg PO BEDTIME Print Language: [place]ralt[place]
[2024-10-03 20:45] LABS: MANUAL DIFF FLAG NO
[2024-10-03 20:47] LABS: Basophils Absolute Auto 0.1 X10*3/uL (0.0-0.2); Basophils Percent Auto 0.6 % (0-2); Eosinophils Absolute Auto 0.1 X10*3/uL (0.0-0.4); Eosinophils Percent Auto 0.6 % (0-4); Hematocrit 34.2 % (37.0-47.0); Hemoglobin 10.9 g/dl (12.0-16.0); Imm Gran Abs Auto 0.02 X10*3/uL (0.00-0.03); Imm Gran Pct Auto 0.2 % (0.0-0.4); Lymphocytes Absolute Auto 1.5 X10*3/uL (1.2-4.9); Lymphocytes Percent Auto 17.3 % (20-40); Mean Corpuscular HGB Conc 31.9 g/dl (31.0-35.0); Mean Corpuscular Volume 87.9 fL (80.0-98.0); Mean Platelet Volume 10.7 fL (9.4-12.3); Monocytes Absolute Auto 0.4 X10*3/uL (0.1-1.2); Monocytes Percent Auto 4.2 % (2-11); Neutrophils Absolute Auto 6.6 x10*3/uL (2.0-8.3); Neutrophils Percent Auto 77.1 % (45-73); Platelet Count 357 X10*3/uL (160-400); Red Blood Count 3.89 X10*6/uL (4.20-5.50); Red Cell Distribution Width 15.3 % (11.0-16.0); White Blood Count 8.5 X10*3/uL (4.8-10.8)
[2024-10-03 20:53] LABS: INTERNATIONAL NORM RATIO 1.1 (0.9-1.1); Prothrombin Time 12.5 SEC (10.9-12.4)
[2024-10-03 20:56] LABS: Partial Thromboplastin Time 31.9 SEC (26.0-36.8)
[2024-10-03 21:12] LABS: Ethanol < 10 mg/dL
[2024-10-03 21:13] LABS: Alanine Aminotransferase 20 U/L (0-31); Albumin Level 3.3 g/dL (3.5-5.0); Alkaline Phosphatase 118 U/L (39-117); Anion Gap 16 (12-20); Aspartate Amino Transferase 22 U/L (5-31); Bilirubin Total 0.2 mg/dL (0.0-1.0); Blood Urea Nitrogen 29 mg/dL (9-16); C Reactive Protein 4.82 mg/dL (< or = 0.50); Calcium 9.6 mg/dL (8.4-10.2); Carbon Dioxide 23 mmol/L (22-29); Chloride 106 mmol/L (96-108); Estimated Glomerular Filt Rate 38; Glucose Random 334 mg/dL (60-115); Potassium 4.7 mmol/L (3.3-5.1); Sodium 140 mmol/L (135-145); Total Protein 7.7 g/dL (6.5-8.0)
[2024-10-03 21:17] LABS: B Type Natriuretic Peptide 103 pg/mL (<100)
[2024-10-03 21:22] LABS: Troponin-I High Sensitivity 5.3 ng/L (<3.5-17.0)
[2024-10-03 21:25] LABS: Erythrocyte Sedimentation Rate 100 MM/HR (0-20)
--- NOTE | 2024-10-03 21:26 | PC.NURSE ---
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
[2024-10-03 22:30] VITALS: BP 118/46; PULSE 57; RESP 16
--- NOTE | 2024-10-03 22:34 | PC.NURSE ---
Pt is a 58 y/o female who presented to the ED for evaluation of chest pain that has been ongoing for approximately 3 days. Pt is arouslable only with deep painful stimuli. Son at bedside reports pt has verbalized SI, verbalized earlier today that she wants to join her . Family remains at the bedside.
[2024-10-03 23:20] VITALS: BP 93/39; PULSE 62; RESP 16
[2024-10-04] MEDS: 0.9 % Sodium Chloride 1,000 ML 999 ML IV (00:05)
[2024-10-04 00:25] VITALS: BP 133/58; PULSE 67; RESP 16
[2024-10-04 01:50] VITALS: BP 94/43; PULSE 66; RESP 14
[2024-10-04 02:27] VITALS: BP 134/61; PULSE 70; RESP 16; O2SAT 94
[2024-10-04 02:51] VITALS: BP 127/54; PULSE 65; RESP 16
--- NOTE | 2024-10-04 04:39 | PC.NURSE ---
Pt has been intermitently sleeping throughout the shift since arrival. Is arousable with verbal stimuli, answers questions appropriately. Verbalizes her needs appropriately. Direct observation at the bedside for safety. Pt is pending care team evaluation in the morning. Will continue to monitor for any changes.
[2024-10-04 05:33] LABS: Amphetamine Screen Urine Not Detected (Not Detect); Barbiturates, Urine Not Detected (Not Detect); Benzodiazepines Screen Urine Not Detected (Not Detect); Buprenorphine Scr Not Detected (Not Detect); Cannabinoid Screen Urine Not Detected (Not Detect); Cocaine Screen Urine POSITIVE (Not Detect); Fentanyl, urine POSITIVE (Not Detect); Methadone Screen, Urine Positive (Not Detect); Opiate Screen Urine POSITIVE (Not Detect); Oxycodone Screen Urine Not Detected (Not Detect); Phencyclidine Screen Urine Not Detected (Not Detect)
[2024-10-04 06:13] VITALS: BP 143/55; PULSE 85; RESP 16; O2SAT 97
--- NOTE | 2024-10-04 09:29 | PC.NURSE ---
patient a&ox3, denying si/hi, Dr. Weaver came to speak with the patient and will be discharging the patient.
--- NOTE | 2024-10-04 09:41 | MHC.CARE ---
Pt does not meet the criteria for a higher level of care or present as an imminent risk. Pt declined to speak with the recovery team. Pt will be discharged to current providers. Dr. Weaver in agreement.
[2024-10-04 10:24] VITALS: BP 138/58; PULSE 78; RESP 16; TEMP 36.7; O2SAT 97
== END 2024-10-04 10:24 | disposition home or self-care (01) ==
PROVIDERS: Physician Assistant; Emergency Provider Internal Medicine
DX: F19.10 Other psychoactive substance abuse, uncomplicated (principal); F43.20 Adjustment disorder, unspecified; R07.9 Chest pain, unspecified; E11.9 Type 2 diabetes mellitus without complications; I10 Essential (primary) hypertension; E78.00 Pure hypercholesterolemia, unspecified; F11.20 Opioid dependence, uncomplicated; F17.210 Nicotine dependence, cigarettes, uncomplicated; Z79.4 Long term (current) use of insulin; Z79.84 Long term (current) use of oral hypoglycemic drugs; Z79.02 Long term (current) use of antithrombotics/antiplatelets; Z79.899 Other long term (current) drug therapy
CPT/HCPCS: 36415; 71045; 73590; 80053; 80307; 83880; 84484; 85025; 85610; 85652; 85730; 86140; 93005; 96360; 99285; S9485

== ENCOUNTER → 2024-10-03 20:18 | Outpatient (BNV) | payer MEDICARE, MEDICAID, SELFPAY | PROVIDERS: Emergency Provider Internal Medicine; Visit Provider Internal Medicine | DX: R94.31 Abnormal electrocardiogram [ECG] [EKG] (principal); R07.9 Chest pain, unspecified | CPT/HCPCS: 93010 ==

== ENCOUNTER → 2024-10-03 20:33 | Outpatient (BNV) | payer MEDICARE, MEDICAID, SELFPAY | PROVIDERS: Visit Provider Student in an Organized Health Care Education/Training Program | DX: J84.9 Interstitial pulmonary disease, unspecified (principal); S81.802A Unspecified open wound, left lower leg, initial encounter | CPT/HCPCS: 71045; 73590 ==

== ENCOUNTER → 2025-04-03 08:30 | Outpatient (BNV) | payer MEDICARE, MEDICAID, SELFPAY | PROVIDERS: PCP Internal Medicine; Visit Provider Radiology Body Imaging | DX: N64.4 Mastodynia (principal) | CPT/HCPCS: 76642; 77066; G0279 ==

== ENCOUNTER 2025-04-03 09:01 | Outpatient (REF) | payer MEDICARE, MEDICAID, SELFPAY ==
--- NOTE | ~2025-04-03 | MM_ITS ---
EXAMINATION(S): 1. MM DIAGNOSTIC DIGITAL BREAST TOMOSYNTHESIS, BILATERAL 2. Targeted ultrasound of the left breast CLINICAL INFORMATION: Left breast pain. Initially, patient described diffuse left breast pain, therefore no skin marker was placed for the mammogram study. However, later, the patient described left focal pain around the nipple. COMPARISON: February 23, 2023 and December 09, 2013. TECHNIQUE: Digital breast tomosynthesis is performed in along with computer-aided detection (CAD). Synthesized 2D images are generated from the tomosynthesis. FINDINGS: BREAST COMPOSITION: There are scattered areas of fibroglandular density. RIGHT BREAST: No significant masses, suspicious calcifications or other abnormalities are seen. LEFT BREAST: No significant masses, suspicious calcifications or other abnormalities are seen. Targeted ultrasound of the left breast was performed at the location of the focal pain as indicated by the patient. The survey throughout the retroareolar region did not reveal suspicious sonographic findings. MM/MM tomosynthesis diagnostic BI IMPRESSION: RIGHT BREAST: Negative, no mammographic evidence of malignancy. Normal interval follow-up is recommended in 12 months. LEFT BREAST: Negative, no evidence of malignancy. In particular, no abnormality to accounts for patient's history of focal pain. Clinical follow-up is recommended. Otherwise, normal interval follow-up mammogram is recommended in 12 months. ASSESSMENT: Category 1: Negative RECOMMENDATION: 1. Patient should be managed based on the clinical impression. 2. Otherwise, routine annual screening mammography. Results were provided to the patient at time of visit by the technologist. This patient's information was entered into a reminder system with a target due date for their next mammogram. Electronically signed by: April Al MD 04/03/2025 09:54 AM EDT
--- OUTSIDE RECORDS SUMMARY | 2025-04-03 09:37 | XMS_ITS | Encounter Summary ---
Author Organization [employer] Address [address] [place] [address] Care Team Providers Care Hydro Operator Name Role Phone Walter Aiken MD Primary Care Provider [phone] Encounter Details Date Type Department Care Team (Late st Contact Info) Description 03/09/2024 Orders Only [facility] [address] [place] [id number] Walter Aiken MD [address] [place] [address] Screening for colon cancer (Primary Dx) Social [...] Name Priority Date/Time Associated Diagnosis Comments LAB COLOGUARD COLON CANCER SCREEN Routine 03/28/2024 7:56 PM EDT Screening for colon cancer documented in this encounter Results * Cologuard?? colon cancer screening (03/28/2024 7:56 PM EDT) Cologuard Result Negative Negative 04/02/20 1:17 PM EDT [facility] (CLIA #:[id number]) Comment: NEGATIVE TEST RESULT. A negative Cologuard result indicates a low likelihood that a colorectal cancer (CRC) or advanced adenoma (adenomatous polyps with more advanced pre-malignant features) is present. The chance that a person with a negative Cologuard test has a colorectal cancer is less than 1 in 1500 (negative predictive value >99.9%) or has an advanced adenoma is less than 5.3% (negative predictive value 94.7%). These data are based on a prospective cross-sectional study of 10,000 individuals at average risk for colorectal cancer who were screened with both Cologuard and colonoscopy. (Yoko Gomez et al, N Engl J Med 2014;370(14):5144-0741) The normal value (reference range) for this assay is negative. COLOGUARD RE-SCREENING RECOMMENDATION: Periodic colorectal cancer screening is an important part of preventive healthcare for asymptomatic individuals at average risk for colorectal cancer. Following a negative Cologuard result, the [place] [employer] and U.S. Multi-Society Task Force screening guidelines recommend a Cologuard re-screening interval of 3 years. References: [place] [employer] Guideline for Colorectal Cancer Screening: https://www.cancer.org/cancer/rbcgy-qgglyg-vwmjfg/xceqlvifj-hxfvqcdlr-ihxzypn/ac s-rec ommendations.html.; Rayshawn DK, Cruzito CR, Elyssa MCMULLEN, Colorectal Cancer Screening: Recommendations for Physicians and Patients from the U.S. Multi-Society Task Force on Colorectal Cancer Screening , Am J Gastroenterology 2017; 112:4237-8018. TEST DESCRIPTION: Composite algorithmic analysis of stool DNA-biomarkers with hemoglobin immunoassay. Quantitative values of individual biomarkers are not [...] Grace. et al, N Engl J Med 2014;370(14):8092-4433.) Cologuard may produce a false negative or false positive result (no colorectal cancer or precancerous polyp present at colonoscopy follow up). A negative Cologuard test result does not guarantee the absence of CRC or advanced adenoma (pre-cancer). The current Cologuard screening interval is every 3 years. ([place] [employer] and U.S. Multi-Society Task Force). Cologuard performance data in a 10,000 patient pivotal study using colonoscopy as the reference method can be accessed at the following location: www.[employer].com/results. Additional description of the Cologuard test process, warnings and precautions can be found at [email or web address].rd.[email or web address]. Stool specimen (specimen) 03/28/2024 7:56 PM EDT 03/30/2024 9:45 AM EDT us Walter Aiken MD LAB MOLECULAR DIAGNOSTICS O RDERABLES Final Result [facility] (CLIA #:[id number]) [address] [place] [address], documented in this encounter Visit Diagnoses Diagnosis Screening for colon cancer- Primary Special screening for malignant neoplasms, colon documented in this encounter Care Teams Hydro Operator Relationship Specialty Start Date End Date Walter Aiken MD [address] [place] [id number] PCP - General Internal Medicine 04/05/14 [place] 08/20/22 documented as of this encounter
--- OUTSIDE RECORDS SUMMARY | 2025-04-03 09:37 | XMS_ITS | Encounter Summary ---
Author Organization [employer] Address 75 [facility] 7 [place] [address] Care Team Providers Care Waxer Floor Name Role Phone Walter Aiken MD Primary Care Provider [phone]- [phone] Reason for Visit * Reason Onset Date Comments PT1 06/05/2023 Encounter Details Date Type Department Care Team ([facility] Contact Info) Description 06/05/2023 Telephone C [facility] MED [facility] PEDS 505 [place] [address] Walter Aiken MD 505 [place] [address] PT1 Social History Tobacco Use Types Packs/Day [...] the mail. * Telephone Encounter - Fiordaliza David - 06/05/2023 1:10 PM EST Tc from pt requesting a PT1 Date: 06/11 Time: 12:20 PM Visits: n/a Address: [address] [place], [place] [address] [address] Facility: [facility] dental Wheel Chair: no Field Consultant Needed: n/a Home address confirmed: [address] [place] [address], [place] documented in this encounter Plan of Treatment Not on file documented as of this encounter Visit Diagnoses Not on filedocumented in this encounter Care Teams Waxer Floor Relationship Specialty Start Date End Date Walter Aiken MD [address] [place] [address] [place] [address] PCP - General Internal Medicine 04/05/14 [employer] 08/20/22 documented as of this encounter
--- OUTSIDE RECORDS SUMMARY | 2025-04-03 09:37 | XMS_ITS | Encounter Summary ---
Author Organization [employer] Address 75 [facility] 7t [place] [address] Care Team Providers Care Civil Clerk Name Role Phone Walter Aiken MD Primary Care Provider [phone]- [phone] Reason for Visit * Reason Onset Date Comments Nurse Triage 09/23/2023 Encounter Details Date Type Department Care Team (Late st Contact Info) Description 09/23/2023 Telephone [facility] MEDICINE [address] [place], [place] [phone] Walter Aiken MD [address] [facility] [place] [phone] Nurse Triage Social History Tobacco Use Types [...] had this before. Pt requests to be seen in [facility] . Advised no apts available in [facility] this week other than tele visits but, Pt should be seen. Pt is advised to come to [facility] Pt reports will come tomorrow. Hours given 830am - 400pm for tomorrow . Pt is given instruction as to address of facility [address] [place], once in front door go to right and register at the desk. Pt agrees with disposition and home care reviewed. Insurance is verifiedas active . Protocol Used: Boil (Skin Abscess) [...] on filedocumented in this encounter Care Teams Civil Clerk Relationship Specialty Start Date End Date Walter Aiken MD [address] [place] [address] PCP - General Internal Medicine 04/05/14 [facility] [employer] 08/20/22 documented as of this encounter
--- OUTSIDE RECORDS SUMMARY | 2025-04-03 09:37 | XMS_ITS | Encounter Summary ---
Author Organization [employer] Address 75 [facility] 7t [place] [address] Care Team Providers Care Microwave Oven Assembler Name Role Phone Walter Aiken MD Primary Care Provider [phone]- [phone] Reason for Visit * Reason Onset Date Comments Med Refill 03/23/2024 Encounter Details Date Type Department Care Team (Late st Contact Info) Description 03/23/2024 Telephone [facility] MEDICINE [address] [place] [address] Walter Aiken MD [address] [facility] [place] [phone] Med Refill Social History Tobacco Use Types [...] 600 MG tablet [id number] [place] - [address] [place] [address] [facility] documented in this encounter Plan of Treatment Not on file documented as of this encounter Visit Diagnoses Not on filedocumented in this encounter Care Teams Microwave Oven Assembler Relationship Specialty Start Date End Date Walter Aiken MD [address] [place] [address] PCP - General Internal Medicine 04/05/14 [facility] [employer] 08/20/22 documented as of this encounter
--- OUTSIDE RECORDS SUMMARY | 2025-04-03 09:37 | XMS_ITS | Encounter Summary ---
Author Organization [employer] Address 75 [facility] 7t [place] [address] Care Team Providers Care Heliotherapist Name Role Phone Walter Aiken MD Primary Care Provider [phone]- [phone] Encounter Details Date Type Department Care Team ([facility] st Contact Info) Description 09/18/2022 Orders Only [facility] MED & PEDS 505 [facility] [place] [address] Walter Aiken MD 505 [facility] [place] [phone] Social History Tobacco Use Types Packs/Day Years [...] on filedocumented in this encounter Care Teams Heliotherapist Relationship Specialty Start Date End Date Walter Aiken MD 505 [place] [address] PCP - General Internal Medicine 04/05/14 [employer] 08/20/22 documented as of this encounter
--- OUTSIDE RECORDS SUMMARY | 2025-04-03 09:37 | XMS_ITS | Encounter Summary ---
Author Organization [employer] Address 75 [facility] 7t [place] [address] Care Team Providers Care Boarder Steam Name Role Phone Walter Aiken MD Primary Care Provider [phone]- [phone] Reason for Visit * Reason Onset Date Comments Referral 12/15/2024 Encounter Details Date Type Department Care Team (Late st Contact Info) Description 12/15/2024 Telephone [facility] MEDICINE 230 [place] [address] Walter Aiken MD 505 [facility] [place] [phone] Referral Social History Tobacco Use Types Packs/Day Years [...] encounter Miscellaneous Notes * Telephone Encounter - Evelin Carrington RN - 12/16/2024 10:08 AM EDT Pt no showed to appt to discuss breast issues. Pt needs to be evaluated prior to getting any new orders or referrals, * Telephone Encounter - Mandy Graves - 12/15/2024 4:11 PM EDT Telephone call from patient requesting a referral [facility] in regards left breast. documented in this encounter Plan of Treatment Not on file documented as of this encounter Visit Diagnoses Not on filedocumented in this encounter Additional Health Concerns Assessment Noted Time PHQ-9 Depression Total Score: 13 025 2:20 PM EST documented as of this encounter Care Teams Boarder Steam Relationship Specialty Start Date End Date Walter Aiken MD [address] [place] [address] PCP - General Internal Medicine 04/05/14 [employer] 08/20/22 documented as of this encounter
--- OUTSIDE RECORDS SUMMARY | 2025-04-03 09:37 | XMS_ITS | Encounter Summary ---
Author Organization [employer] Address 75 [facility] 7 [place] [address] Care Team Providers Care Pulp Mill Team Leader Name Role Phone Walter Aiken MD Primary Care Provider [phone]- [phone] Reason for Visit * Reason Onset Date Comments Pt1 07/10/2023 Encounter Details Date Type Department Care Team ([facility] st Contact Info) Description 07/10/2023 Telephone [facility] CHC MED & PEDS 505 [place] [address] Walter Aiken MD 505 [place] [address] Pt1 Social History Tobacco Use Types Packs/Day [...] the mail. * Telephone Encounter - Arvind Donny - 07/10/2023 9:30 AM EST PT1 needed Date: 07/17/23 Time: 11:30 Visits: couple of visits Address: [address] [place] [address] Facility: [address] Wheel Chair: No Spray Crew Needed: No documented in this encounter Plan of Treatment Not on file documented as of this encounter Visit Diagnoses Not on filedocumented in this encounter Care Teams Pulp Mill Team Leader Relationship Specialty Start Date End Date Walter Aiken MD [address] [place] [address] PCP - General Internal Medicine 04/05/14 [employer] 08/20/22 documented as of this encounter
--- OUTSIDE RECORDS SUMMARY | 2025-04-03 09:37 | XMS_ITS | Encounter Summary ---
Author Organization [employer] Address [address] [place] [address] 7 [place] [address] Care Team Providers Care Marketing Automation Specialist Name Role Phone Walter Aiken MD Primary Care Provider [phone] Reason for Visit * Reason Onset Date Comments Pt1 06/19/2023 Encounter Details Date Type Department Care Team ([facility] st Contact Info) Description 06/19/2023 Telephone [facility] MED & PEDS 505 [place] [address] Walter Aiken MD 505 [place] [address] Pt1 Social History Tobacco Use Types Packs/Day [...] * Telephone Encounter - Arvind Donny - 06/19/2023 11:45 AM EST PT1 needed Date: 06/23/23 Time: 3:30 PM Visits: (N/A) Address: [address] [place] [address] ariadna Isbell Facility: ([facility], Dr. Aiken) Wheel Chair: (No) Watch Technician Needed: No documented in this encounter Plan of Treatment Not on file documented as of this encounter Visit Diagnoses Not on filedocumented in this encounter Care Teams Marketing Automation Specialist Relationship Specialty Start Date End Date Walter Aiken MD [address] [place], [place] [address] [place] [address] PCP - General Internal Medicine 04/05/14 [employer] 08/20/22 documented as of this encounter
--- OUTSIDE RECORDS SUMMARY | 2025-04-03 09:37 | XMS_ITS | Encounter Summary ---
Author Organization [employer] Address 75 [facility] 7t [place] [address] Care Team Providers Care Manager Architecture Name Role Phone Walter Aiken MD Primary Care Provider [phone]- [phone] Reason for Visit * Reason Onset Date Comments Created In Error 04/07/2024 Encounter Details Date Type Department Care Team ([facility] st Contact Info) Description 04/07/[address] [facility] MEDICINE 230 [place] [address] Walter Aiken MD 505 [facility] [place] [phone] Created In Error Social History Tobacco Use [...] on filedocumented in this encounter Care Teams Manager Architecture Relationship Specialty Start Date End Date Walter Aiken MD [address] [place] [address] PCP - General Internal Medicine 04/05/14 [employer] 08/20/22 documented as of this encounter
--- OUTSIDE RECORDS SUMMARY | 2025-04-03 09:37 | XMS_ITS | Encounter Summary ---
Author Organization [facility] Address [address] [facility] [address] [place] [address] Phone Care Team Providers Care Motor Patrol Operator Name Role Phone Sharif Khalil MD Primary Care Provider [phone] Encounter Details Date Type Department Care Team (Late st Contact Info) Description 04/05/2018 Transcribe Orders [facility] Specimen Processing 30 [place] [address] Sharif Khalil MD 38 [facility] [address], [address] [place] [address] [email or web address] History of left shoulder fracture (Primary Dx) Social History Tobacco Use Types Packs/Day Years Used Date Smoking Tobacco: Never Assessed Comments Unknown Sex and Gender Information Value Date Recorded Sex Assigned at Not on file Legal Sex Female 8:40 AM EDT Gender Identity Not on file Sexual Orientation Not on file documented as of this encounter Plan of Treatment Not on file documented as of this encounter Results * (ABNORMAL) Comprehensive metabolic panel (04/05/2018 1:55 PM EDT) SODIUM 135 133 - 146 mmol/L [facility] POTASSIUM 4.6 3.3 - 5.1 mmol/L [facility] CHLORIDE 93(L) 96 - 108 mmol/L [facility] CO2 20(L) 21 - 35 mmol/L [facility] BUN 20(H) 6 - 19 mg/dL [facility] CREATININE 0.90 0.5 - 1.5 mg/dL [facility] GLUCOSE 271(H) 70 - 99 mg/dL [facility] ALBUMIN 4.3 3.9 - 4.8 g/dL [facility] TOTAL PROTEIN 7.4 6.5 - 8.0 g/dL [facility] CALCIUM 10.4(H) 8.4 - 10.3 mg/dL [facility] ALKALINE PHOSPHATASE 124(H) 39 - 117 U/L [facility] TOTAL BILIRUBIN 0.2 0.0 - 1.2 mg/dL [facility] AST 13 0 - 37 U/L [facility] ALT 18 0 - 40 U/L [facility] GLOBULIN 3.1 1 - 4.8 g/dL [facility] EGFR 74 >59 mL/min/1.7 3m2 [facility] Comment:If patient is black, multiply result by 1.159. Estimated glomerular filtration rate calculated using the CKD-EPI equation. ANION GAP 27(H) 10 - 20 mmol/L [facility] Blood 04/05/2018 1:55 PM EDT 04/05/2018 2:53 PM EDT us Sharif Khalil MD LAB BLOOD ORDERABLES Final Resul t Performing Organization Address City/State/[facility] Co de Phone Number [address] [address] * (ABNORMAL) CBC (04/05/2018 1:55 PM EDT) WBC 9.32 3.40 - 11.20 K/uL [facility] RBC 3.80 3.80 - 4.80 M/uL [facility] HGB 11.3(L) 12.0 - 15.0 g/dL [facility] HCT 34.3(L) 36.0 - 46.0 % [facility] PLT 224 130 - 400 K/uL [facility] MCV 90.3 79.0 - 98.0 [facility] MCH 29.7 27.0 - 34.8 pg [facility] MCHC 32.9 31.5 - 36.0 g/dL [facility] RDW 13.5 10.8 - 14.6 % [facility] MPV 11.6 9.4 - 12.4 [facility] NRBC 0.00 /100 WBCs [facility] ABSOLUTE NRBC 0.00 K/uL [facility] Blood 04/05/2018 1:55 PM EDT 04/05/2018 2:53 PM EDT us Sharif Khalil MD LAB BLOOD ORDERABLES Final Resul t [address] [address] documented in this encounter Visit Diagnoses Diagnosis History of left shoulder fracture- Primary documented in this encounter Care Teams Motor Patrol Operator Relationship Specialty Start Date End Date Sharif Khalil MD [email or web address] PCP - General Family Medicine 02/25/18 documented as of this encounter Additional Source Comments The information contained in this document represents components of the legal health record. It is not the complete legal health record.[facility]
--- OUTSIDE RECORDS SUMMARY | 2025-04-03 09:37 | XMS_ITS | Encounter Summary ---
Author Organization [employer] Address 75 [facility] 7t [place] [address] Care Team Providers Care Operations Supervisor Name Role Phone Walter Aiken MD Primary Care Provider [phone] Reason for Visit * Reason Onset Date Comments PT-1 03/09/2024 Encounter Details Date Type Department Care Team (Late st Contact Info) Description 03/09/2024 Telephone [facility] MEDICINE 230 [place] [address] Walter Aiken MD 505 [facility] [place] [phone] PT-1 Social History Tobacco Use Types Packs/Day [...] * Telephone Encounter - Cliff Garza - 03/09/2024 9:36 AM EDT Patient calling requesting PT1 Home Address verified: Y/N: Yes Provider name or facility name: [facility] Facility Address: [address] [place] [address] Escort needed: Y/N: No Do you have a wheelchair: Y/N: No If yes- Manual or electric: no Visits: 6 documented in this encounter Plan of Treatment Not on file documented as of this encounter Visit Diagnoses Not on filedocumented in this encounter Care Teams Operations Supervisor Relationship Specialty Start Date End Date Walter Aiken MD [address] [place] [address] PCP - General Internal Medicine 04/05/14 [employer] 08/20/22 documented as of this encounter
--- OUTSIDE RECORDS SUMMARY | 2025-04-03 09:37 | XMS_ITS | Encounter Summary ---
Author Organization [employer] Address [address] [facility] 7t h Floor [place] [phone] Care Team Providers Care Retail Administrative Assistant Name Role Phone Walter Aiken MD Primary Care Provider [phone] Encounter Details Date Type Department Care Team ([facility] Contact Info) Description 06/23/2022 Telephone [facility] CHC MED & PEDS [address] [facility] [place], [place] [phone] Walter Aiken MD 505 [place], [place] [phone] Social History Tobacco Use Types Packs/Day Years [...] on filedocumented in this encounter Care Teams Retail Administrative Assistant Relationship Specialty Start Date End Date Walter Aiken MD 505 [place] [address] PCP - General Internal Medicine 04/05/14 [facility] 08/20/22 documented as of this encounter
--- OUTSIDE RECORDS SUMMARY | 2025-04-03 09:37 | XMS_ITS | Encounter Summary ---
Author Organization [facility] Address [address] [facility] [address] [place] [address] Phone Care Team Providers Care Vegetable Harvest Worker Name Role Phone Sharif Khalil MD Primary Care Provider [phone] Encounter Details Date Type Department Care Team (Late st Contact Info) Description 03/12/2018 Transcribe Orders [facility] Specimen Processing 30 [place] [address] Sharif Khalil MD 38 [facility] [address], [address] [place] [address] [email or web address] Type 2 diabetes mellitus without complication, unspecified whether nursing home insulin use (Primary Dx) Social History Tobacco Use Types [...] as of this encounter Results * (ABNORMAL) CBC and differential (03/12/2018 7:00 AM EDT) WBC 7.93 3.40 - 11.20 K/uL [facility] RBC 3.59(L) 3.80 - 4.80 M/uL [facility] HGB 10.9(L) 12.0 - 15.0 g/dL [facility] HCT 32.8(L) 36.0 - 46.0 % [facility] PLT 260 130 - 400 K/uL [facility] MCV 91.4 79.0 - 98.0 fL [facility] MCH 30.4 27.0 - 34.8 pg [facility] MCHC 33.2 31.5 - 36.0 g/dL [facility] RDW 13.6 10.8 - 14.6 % [facility] MPV 11.8 9.4 - 12.4 fl [facility] NRBC 0.00 /100 WBCs [facility] ABSOLUTE NRBC 0.00 K/uL [facility] DIFF METHOD Auto [facility] NEUTS 56.1 45.30 - 77.70 % [facility] LYMPHS 30.1 12.30 - 39.70 % [facility] MONOS 7.9 4.10 - 12.80 % [facility] EOS 3.5 0 - 7.2 % [facility] BASOS 0.8 0 - 2.80 % [facility] Granulocytes, immature (%) 1.6(H) 0.0 - 0.9 % [facility] ABSOLUTE NEUTS 4.44 1.40 - 7.70 K/uL [facility] ABSOLUTE LYMPHS 2.39 0.60 - 3.20 K/uL [facility] ABSOLUTE MONOS 0.63(H) 0.11 - 0.59 K/uL [facility] ABSOLUTE EOS 0.28 0.01 - 0.50 K/uL [facility] ABSOLUTE BASOS 0.06 0.00 - 0.08 K/uL [facility] Granulocytes, immature 0.13(H) 0.00 - 0.05 K/uL [facility] Blood 03/12/2018 7:00 AM EDT 03/12/2018 9:47 AM EDT us Sharif Khalil MD LAB BLOOD ORDERABLES Final Resul t [address] [address] * (ABNORMAL) Basic metabolic panel (03/12/2018 7:00 AM EDT) SODIUM 137 133 - 146 mmol/L [facility] CHLORIDE 96 96 - 108 mmol/L [facility] POTASSIUM 4.2 3.3 - 5.1 mmol/L [facility] CO2 24 21 - 35 mmol/L [facility] BUN 16 6 - 19 mg/dL [facility] CREATININE 0.70 0.5 - 1.5 mg/dL [facility] GLUCOSE 219(H) 70 - 99 mg/dL [facility] CALCIUM 10.0 8.4 - 10.3 mg/dL [facility] EGFR 100 >59 mL/min/1.7 3m2 [facility] Comment:If patient is black, multiply result by 1.159. Estimated glomerular filtration rate calculated using the CKD-EPI equation. ANION GAP 21(H) 10 - 20 mmol/L [facility] Blood 03/12/2018 7:00 AM EDT 03/12/2018 9:47 AM EDT us Sharif Khalil MD LAB BLOOD ORDERABLES Final Resul t [address] [address] documented in this encounter Visit Diagnoses Diagnosis Type 2 diabetes mellitus without complication, unspecified whether intermediate accountant insulin use- Primary documented in this encounter Care Teams Vegetable Harvest Worker Relationship Specialty Start Date End Date Sharif Khalil MD [email or web address] PCP - General Family Medicine 02/25/18 documented as of this encounter Additional Source Comments The information contained in this document represents components of the legal health record. It is not the complete legal health record.[facility]
--- OUTSIDE RECORDS SUMMARY | 2025-04-03 09:37 | XMS_ITS | Encounter Summary ---
Author Organization [facility] Address [address] [facility] [address] [place] [address] Phone Care Team Providers Care Legal Receptionist Name Role Phone Sharif Khalil MD Primary Care Provider [phone] Encounter Details Date Type Department Care Team (Late st Contact Info) Description 05/03/2018 Ancillary Orders Virtual Department 30 [place] [address] Sharif Khalil MD 38 [facility] [address], [address] [place] [address] [email or web address] Pulmonary emphysema, unspecified emphysema type Social History Tobacco Use Types Packs/Day Years Used Date Smoking Tobacco: Never Assessed Comments Unknown Sex and Gender Information Value Date Recorded Sex Assigned at Not on file Legal Sex Female 8:40 AM EDT Gender Identity Not on file Sexual Orientation Not on file documented as of this encounter Plan of Treatment Not on file documented as of this encounter Visit Diagnoses Diagnosis Pulmonary emphysema, unspecified emphysema type documented in this encounter Care Teams Legal Receptionist Relationship Specialty Start Date End Date Sharif Khalil MD PCP - General Family Medicine 02/25/18 documented as of this encounter Additional Source Comments The information contained in this document represents components of the legal health record. It is not the complete legal health record.[facility]
--- OUTSIDE RECORDS SUMMARY | 2025-04-03 09:37 | XMS_ITS | Encounter Summary ---
Author Organization [employer] Address [address] [facility] 7 [place] [address] Care Team Providers Care Solar Panel Technician Name Role Phone Walter Aiken MD Primary Care Provider [phone] Reason for Visit * Reason Onset Date Comments Hospital Follow-up 07/10/2023 Encounter Details Date Type Department Care Team ([facility] st Contact Info) Description 07/10/2023 Telephone [facility] CHC MED & PEDS 505 [place] [address] Walter Aiken MD 505 [place] [address] Hospital Follow-up Social History Tobacco Use Types [...] from pt requesting a HDF appt. Hospital: [facility] Date of admission: 07/07/23 Discharge date: 07/09/23 Diagnosed: pneumonia documented in this encounter Plan of Treatment Not on file documented as of this encounter Visit Diagnoses Not on filedocumented in this encounter Care Teams Solar Panel Technician Relationship Specialty Start Date End Date Walter Aiken MD 505 [place] [address] PCP - General Internal Medicine 04/05/14 [employer] 08/20/22 documented as of this encounter
--- OUTSIDE RECORDS SUMMARY | 2025-04-03 09:37 | XMS_ITS | Encounter Summary ---
Author Organization [employer] Address [address] [facility] 7t [place] [address] Care Team Providers Care Cruise Coordinator Name Role Phone Walter Aiken MD Primary Care Provider Reason for Visit * Reason Onset Date Comments PT 1 04/24/2023 Encounter Details Date Type Department Care Team (Late st Contact Info) Description 04/24/[address] [facility] MEDICINE 230 [place], [place] [phone] Walter Aiken MD [address] [facility] [place] [phone] PT 1 Social History Tobacco Use Types [...] PT1 Date: N/A Time: N/A Visits: Dental Address:[address] [place] [address] Facility: (name, specialty or name of doctor) Wheel Chair: no Electric Motor Repair Supervisor Needed: no documented in this encounter Plan of Treatment Not on file documented as of this encounter Visit Diagnoses Not on filedocumented in this encounter Care Teams Cruise Coordinator Relationship Specialty Start Date End Date Walter Aiken MD [address] [place] [address] PCP - General Internal Medicine 04/05/14 [employer] 08/20/22 documented as of this encounter
--- OUTSIDE RECORDS SUMMARY | 2025-04-03 09:37 | XMS_ITS | Encounter Summary ---
Author Organization [employer] Address [address] [place] [address] 7 [place] [address] Care Team Providers Care Watch Parts Grinder Name Role Phone Walter Aiken MD Primary Care Provider [phone] Reason for Visit * Reason Onset Date Comments Pt1 06/19/2023 Encounter Details Date Type Department Care Team ([facility] st Contact Info) Description 06/19/2023 Telephone [facility] [address] [place] [address] Walter Aiken MD 505 [facility] [place] Pt1 Social History Tobacco Use Types Packs/Day [...] Telephone Encounter - Arvind Donny - 06/19/2023 11:53 AM EST PT1 needed Date: 07/24/23 Time: 11:30 Am Visits: (N/A) Address: [address] [place] [address] Dario Chairez ma Facility: ([address] ) Wheel Chair: (No) Nut Blanker Operator Needed: No documented in this encounter Plan of Treatment Not on file documented as of this encounter Visit Diagnoses Not on filedocumented in this encounter Care Teams Watch Parts Grinder Relationship Specialty Start Date End Date Walter Aiken MD 505 [facility] [place] [address] PCP - General Internal Medicine 04/05/14 [employer] 08/20/22 documented as of this encounter
--- OUTSIDE RECORDS SUMMARY | 2025-04-03 09:37 | XMS_ITS | Encounter Summary ---
Author Organization [email or web address] Address 75 [facility] 7t [place] [address] Care Team Providers Care Egg Pasteurizer Name Role Phone Walter Aiken MD Primary Care Provider [phone]- [phone] Reason for Visit * Reason Onset Date Comments Order 02/27/2025 Encounter Details Date Type Department Care Team (Late st Contact Info) Description 02/27/2025 Telephone [facility] MEDICINE [address] [place] [address] Walter Aiken MD 505 [facility] [place] [phone] Order Social History Tobacco Use Types Packs/Day Years [...] encounter Miscellaneous Notes * Telephone Encounter - Arvind Hines - 03/03/2025 2:27 PM EDT Tc from ed calling in regards to message prior stating the order was sent incorrectly. Order must also include the side she is feeling the pain on which she informed it is the left breast. * Telephone Encounter - Joselyn Gonzalez RN - 02/28/2025 11:21 AM EDT TC to [facility]. She is requesting an updated order for a diagnostic mammogram due to patient experiencing left breast pain. * Telephone Encounter - Arvind Hines - 02/27/2025 1:19 PM EDT Tc from [facility] calling in regards to Mammogram order stating they have the initial order but they're requesting an updated diagnostic order due to pt experiencing breast pain. If any questions contact [facility] at [phone]. . documented in this encounter Plan of Treatment Not on file documented as of this encounter Visit Diagnoses Not on filedocumented in this encounter Additional Health Concerns Assessment Noted Time PHQ-9 Depression Total Score: 13 025 2:20 PM EST documented as of this encounter Care Teams Egg Pasteurizer Relationship Specialty Start Date End Date Walter Aiken MD [address] [place] [address] PCP - General Internal Medicine 04/05/14 [email or web address] 08/20/22 documented as of this encounter
--- OUTSIDE RECORDS SUMMARY | 2025-04-03 09:37 | XMS_ITS | Encounter Summary ---
Author Organization [employer] Address 75 [facility] 7t [place] [address] Care Team Providers Care Aircraft Line Assembler Name Role Phone Walter Aiken MD Primary Care Provider [phone]- [phone] Reason for Referral * Imaging (Routine) - Closed Specialty Diagnoses / Procedures Referred By Myra aguilera Referred To Contact Radiology Diagnoses Encounter for screening mammogram for malignant neoplasm of breast Procedures BI Mammogram Screening Tomosynthesis Bilateral Walter Aiken MD 505 [place] [address] Phone: tel: fax: [address] Phone: tel: fax: Referral ID Status Reason Start Date Expiration Date Visits Re quested Visits Authorized [id number] Closed 01/18/2025 01/18/2026 1 1 Encounter Details Date Type Department Care Team (Late st Contact Info) Description 01/18/2025 Orders Only [facility] CHC MED & PEDS 505 [place] [address] Walter Aiken MD 505 [place] [address] Encounter for screening mammogram for malignant neoplasm of breast (Primary Dx) Social History Tobacco Use Types [...] Type Priority Associated Diagnoses Orde r Schedule BI Mammogram Screening Tomosynthesis Bilateral Imaging Routine Encounter for screening mammogram for malignant neoplasm of breast Expected: 01/18/2025, Expires: 03/21/2026 documented as of this encounter Visit Diagnoses Diagnosis Encounter for screening mammogram for malignant neoplasm of breast- Primary documented in this encounter Additional Health Concerns Assessment Noted Time PHQ-9 Depression Total Score: 13 025 2:20 PM EST documented as of this encounter Care Teams Aircraft Line Assembler Relationship Specialty Start Date End Date Walter Aiken MD 505 [place] [address] PCP - General Internal Medicine 04/05/14 [employer] 08/20/22 documented as of this encounter
--- OUTSIDE RECORDS SUMMARY | 2025-04-03 09:37 | XMS_ITS | Clinical Summary ---
Author Organization [facility] Address [address] [place] [address] Phone Care Team Providers Care Order Entry Technician Name Role Phone Sharif Khalil MD Primary Care Provider [phone] Social History Tobacco Use Types Packs/Day Years Used Date Smoking Tobacco: Never Assessed Education Answer Date Recorded Are you interested in more education? Not on sil e 10/31/2022 Are you concerned about learning? Not on file 10/31/2022 No 10/31/2022 No 10/31/2022 Digital Access Answer Date Recorded No 12/02/2022 No 12/02/2022 No 12/02/2022 Reliable internet access at home? Not on file 12/02/2022 Device with a working camera? Not on file Comments Unknown Sex and Gender Information Value Date Recorded Sex Assigned at Not on file Legal Sex Female 8:40 AM EDT Gender Identity Not on file Sexual Orientation Not on file Plan of Treatment Not on file Medical Devices [place] [address] MEDICARE PART [place] [id number] [facility] [place] [address] MEDICARE PART A & B [facility] [place] [address] MEDICARE PART A & B [facility] B [facility] MEDICARE PART A & B Member Subscriber Plan / Payer (Ef fective 2009-Present) Name:RosasChiaraBlank Member ID:[id number] Relation to Subscriber:Self Name:Mitesh Rosasa Subscriber ID:[id number] Payer ID:[id number] Group ID:Not on file Type:Medicare Address: [employer] [address] [place] MEDICARE PART A & B [facility] PART A & B [place] [id number] MEDICARE PART A & B HEALTH [place] [id number] MEDICARE PART A & B [facility] Care Teams Order Entry Technician Relationship Specialty Start Date End Date Sharif Khalil MD [email or web address] PCP - General Family Medicine 02/25/18 Additional Source Comments The information contained in this document represents components of the legal health record. It is not the complete legal health record.[facility]
--- OUTSIDE RECORDS SUMMARY | 2025-04-03 09:37 | XMS_ITS | Encounter Summary ---
Author Organization [employer] Address 75 [facility] 7t [place] [address] Care Team Providers Care Search Advertising Strategist Name Role Phone Walter Aiken MD Primary Care Provider [phone] Reason for Visit * Reason Onset Date Comments Med Refill 11/09/2023 Encounter Details Date Type Department Care Team (Late st Contact Info) Description 11/09/[address] [facility] MEDICINE [address] [place] [address] Walter Aiken MD [facility] [place] [phone] Med Refill Social History Tobacco Use Types [...] MG disintegrating tablet [id number] [place], [place] - [address] [place] [address] AT [facility] documented in this encounter Plan of Treatment Not on file documented as of this encounter Visit Diagnoses Not on filedocumented in this encounter Care Teams Search Advertising Strategist Relationship Specialty Start Date End Date Walter Aiken MD [address] [place] [address] PCP - General Internal Medicine 04/05/14 [employer] 08/20/22 documented as of this encounter
--- OUTSIDE RECORDS SUMMARY | 2025-04-03 09:37 | XMS_ITS | Encounter Summary ---
Author Organization [employer] Address 75 [facility] 7t [place] [address] Care Team Providers Care Orthopedics Pediatric Physician Name Role Phone Walter Aiken MD Primary Care Provider [phone] Reason for Referral * Imaging (Routine) - Closed Specialty Diagnoses / Procedures Referred By Myra aguilera Referred To Contact Radiology Diagnoses Chronic tension-type headache, not intractable Procedures CT Head w/o Contrast Walter Aiken MD 505 [place] [address] Phone: tel: fax: [address] Phone: tel: fax: Referral ID Status Reason Start Date Expiration Date Visits Re quested Visits Authorized [id number] Closed 07/28/2024 07/28/2025 1 1 * Consultation (Routine) - Canceled Specialty Diagnoses / Procedures Referred By Myra aguilera Referred To Contact Pharmacy Diagnoses Uncontrolled diabetes mellitus of other type with hypoglycemia, unspecified hypoglycemia coma status (HCC) Walter Aiken MD 505 [place] [address] Phone: tel: fax: Referral ID Status Reason Start Date Expiration Date V isits Requested Visits Authorized [id number] Canceled Consult and Treat 07/27/2024 07/27/2025 6 6 Encounter Details Date Type Department Care Team (Late st Contact Info) Description 07/27/[address] [facility] CHC MED & PEDS [address] [place] [address] Walter Aiken MD 505 [place] [address] Controlled type 2 diabetes mellitus with hyperglycemia, with long-term current use of insulin ([facility]) (Primary Dx); Uncontrolled diabetes mellitus of other type with hypoglycemia, unspecified hypoglycemia coma status ([facility]); Chronic tension-type headache, not intractable Social History [...] Diagnoses Orde r Schedule Referral to Pharmacy [facility] Outpatient Referral Routine Uncontrolled diabetes mellitus of other type with hypoglycemia, unspecified hypoglycemia coma status (CMS/HCC) Ordered: 07/27/2024 documented as of this encounter Visit Diagnoses Diagnosis Controlled type 2 diabetes mellitus with hyperglycemia, with long-term current use of insulin (HCC)- Primary Uncontrolled diabetes mellitus of other type with hypoglycemia, unspecified hypoglycemia coma status (HCC) Chronic tension-type headache, not intractable Chronic tension type headache documented in this encounter Care Teams Orthopedics Pediatric Physician Relationship Specialty Start Date End Date Walter Aiken MD [address] [place] [address] PCP - General Internal Medicine 04/05/14 [employer] 08/20/22 documented as of this encounter
--- OUTSIDE RECORDS SUMMARY | 2025-04-03 09:37 | XMS_ITS | Encounter Summary ---
Author Organization [facility] Address [address] [facility] [address] [place] [address] Phone Care Team Providers Care Theatrical Rigger Name Role Phone Sharif Khalil MD Primary Care Provider [phone] Encounter Details Date Type Department Care Team (Late st Contact Info) Description 02/25/2018 Transcribe Orders [facility] Specimen Processing [address] [place] [address] Sharif Khalil MD [address] [facility] [place], [address] [place] [address] [email or web address] Diabetes mellitus of other type without complication, unspecified whether assisted insulin use (Primary Dx) Social History Tobacco [...] documented as of this encounter Results * CBC (02/25/2018 7:25 AM EDT) WBC 9.05 3.40 - 11.20 K/uL [facility] RBC 4.09 3.80 - 4.80 M/uL [facility] HGB 12.0 12.0 - 15.0 g/dL [facility] HCT 36.2 36.0 - 46.0 % [facility] PLT 295 130 - 400 K/uL [facility] MCV 88.5 79.0 - 98.0 fL [facility] MCH 29.3 27.0 - 34.8 pg [facility] MCHC 33.1 31.5 - 36.0 g/dL [facility] RDW 13.3 10.8 - 14.6 % [facility] MPV 11.6 9.4 - 12.4 fl [facility] NRBC 0.00 /100 WBCs [facility] ABSOLUTE NRBC 0.00 K/uL [facility] Blood 02/25/2018 7:25 AM EDT 02/25/2018 9:20 AM EDT us Sharif Khalil MD LAB BLOOD ORDERABLES Final Resul t [facility] [address] [place] [address] * (ABNORMAL) Comprehensive metabolic panel (02/25/2018 7:25 AM EDT) SODIUM 136 133 - 146 mmol/L [facility] POTASSIUM 4.7 3.3 - 5.1 mmol/L [facility] CHLORIDE 94(L) 96 - 108 mmol/L [facility] CO2 23 21 - 35 mmol/L [facility] BUN 27(H) 6 - 19 mg/dL [facility] CREATININE 0.80 0.5 - 1.5 mg/dL [facility] GLUCOSE 323(H) 70 - 99 mg/dL [facility] ALBUMIN 3.8(L) 3.9 - 4.8 g/dL [facility] TOTAL PROTEIN 7.3 6.5 - 8.0 g/dL [facility] CALCIUM 10.4(H) 8.4 - 10.3 mg/dL [facility] ALKALINE PHOSPHATASE 140(H) 39 - 117 U/L [facility] TOTAL BILIRUBIN 0.3 0.0 - 1.2 mg/dL [facility] AST 30 0 - 37 U/L [facility] ALT 45(H) 0 - 40 U/L [facility] GLOBULIN 3.5 1 - 4.8 g/dL [facility] EGFR 85 >59 mL/min/1.7 3m2 [facility] Comment:If patient is black, multiply result by 1.159. Estimated glomerular filtration rate calculated using the CKD-EPI equation. ANION GAP 24(H) 10 - 20 mmol/L [facility] Blood 02/25/2018 7:25 AM EDT 02/25/2018 9:20 AM EDT us Sharif Khalil MD LAB BLOOD ORDERABLES Final Resul t [facility] [address] [place] [address] documented in this encounter Visit Diagnoses Diagnosis Diabetes mellitus of other type without complication, unspecified whether joint terminal attack controller insulin use- Primary documented in this encounter Care Teams Theatrical Rigger Relationship Specialty Start Date End Date Sharif Khalil MD [email or web address] PCP - General Family Medicine 02/25/18 documented as of this encounter Additional Source Comments The information contained in this document represents components of the legal health record. It is not the complete legal health record.[facility]
--- OUTSIDE RECORDS SUMMARY | 2025-04-03 09:37 | XMS_ITS | Encounter Summary ---
Author Organization [employer] Address 75 [facility] 7 [place] [address] Care Team Providers Care Brazer Assembler Name Role Phone Walter Aiken MD Primary Care Provider [phone] Reason for Referral * Imaging (Routine) - Closed Specialty Diagnoses / Procedures Referred By Contac t Referred To Contact Radiology Diagnoses Chronic tension-type headache, not intractable Procedures CT Head w/o Contrast Walter Aiken MD [address] [place] [address] Phone: tel: fax: [address] Phone: tel: fax: Referral ID Status Reason Start Date Expiration Date Visits Re quested Visits Authorized [id number] Closed 05/25/2024 05/25/2025 1 1 Encounter Details Date Type Department Care Team (Late st Contact Info) Description 05/25/2024 Orders Only [facility] CHC MED & PEDS [address] [place] [address] Walter Aiken MD 505 [place], [place] [phone] Chronic tension-type headache, not intractable (Primary Dx) [...] headache documented in this encounter Care Teams Brazer Assembler Relationship Specialty Start Date End Date Walter Aiken MD [address] [place] [address] PCP - General Internal Medicine 04/05/14 [employer] 08/20/22 documented as of this encounter
--- OUTSIDE RECORDS SUMMARY | 2025-04-03 09:37 | XMS_ITS | Encounter Summary ---
Author Organization [employer] Address 75 [facility] 7 [place] [address] Care Team Providers Care Knowledge Management Consultant Name Role Phone Walter Aiken MD Primary Care Provider [phone] Reason for Visit * Reason Onset Date Comments F 08/20/23 08/20/2023 Encounter Details Date Type Department Care Team (Late st Contact Info) Description 08/20/[address] [facility] MEDICINE 230 [place] [address] Walter Aiken MD 505 [facility] [place], [place] [phone] HDF 08/20/23 Social History Tobacco Use Types Packs/Day [...] that number was disconnected. Routing back to [facility] nurses to try next week. Tc from pt requesting to reschedule today's HDF 08/20. Pt stated PT-1 did not pick them up. Please contact pt at [phone]. * Telephone Encounter - Arvind Hines - 08/20/2023 2:57 PM EST Tc from pt requesting to reschedule today's HDF 08/20. Pt stated PT-1 did not pick them up. Please contact pt at [phone]. documented in this encounter Plan of Treatment Not on file documented as of this encounter Visit Diagnoses Not on filedocumented in this encounter Care Teams Knowledge Management Consultant Relationship Specialty Start Date End Date Walter Aiken MD [address] [place] [address] PCP - General Internal Medicine 04/05/14 [employer] 08/20/22 documented as of this encounter
--- OUTSIDE RECORDS SUMMARY | 2025-04-03 09:37 | XMS_ITS | Encounter Summary ---
Author Organization [employer] Address [address] [facility] 7t [place] [address] Care Team Providers Care Field Service Tech Name Role Phone Walter Aiken MD Primary Care Provider [phone]- [phone] Reason for Visit * Reason Onset Date Comments Appointment Request 07/30/2023 Encounter Details Date Type Department Care Team ([facility] st Contact Info) Description 07/30/2023 Telephone [facility] MEDICINE 230 [place] [address] Walter Aiken MD 505 [place] [address] Appointment Request Social History Tobacco Use Types [...] person's name. Left VM at third number ([phone]) to call us back. Patient has recall in system for follow up with Dr. Aiken in July. Routing back to [facility] nurses to try again. Tc from patient requesting a follow up appt states need to speak with PCP in regards to the x-ray findings * Telephone Encounter - Cliff Garza - 07/30/2023 11:59 AM EST Tc from patient requesting a follow up appt states need to speak with PCP in regards to the x-ray findings documented in this encounter Plan of Treatment Not on file documented as of this encounter Visit Diagnoses Not on filedocumented in this encounter Care Teams Field Service Tech Relationship Specialty Start Date End Date Walter Aiken MD [address] [place] [address] PCP - General Internal Medicine 04/05/14 [employer] 08/20/22 documented as of this encounter
--- OUTSIDE RECORDS SUMMARY | 2025-04-03 09:37 | XMS_ITS | Encounter Summary ---
Author Organization [employer] Address [address] [facility] 7 [place] [address] Care Team Providers Care Payroll Administrator Name Role Phone Walter Aiken MD Primary Care Provider [phone]- [phone] Reason for Visit * Reason Onset Date Comments FYI 07/14/2023 Encounter Details Date Type Department Care Team (Late st Contact Info) Description 07/14/2023 Telephone [facility] MEDICINE [address] [place] [address] Walter Aiken MD 505 [facility] [place] [phone] FYI Social History Tobacco Use Types Packs/Day [...] on filedocumented in this encounter Care Teams Payroll Administrator Relationship Specialty Start Date End Date Walter Aiken MD [address] [place] [address] PCP - General Internal Medicine 04/05/14 [email or web address] 08/20/22 documented as of this encounter
--- OUTSIDE RECORDS SUMMARY | 2025-04-03 09:37 | XMS_ITS | Encounter Summary ---
Author Organization [employer] Address [address] [facility] 7 [place] [address] Care Team Providers Care Bread Distributor Name Role Phone Walter Aiken MD Primary Care Provider [phone] Reason for Visit * Reason Onset Date Comments ER Follow-up 07/31/2023 Encounter Details Date Type Department Care Team ([facility] st Contact Info) Description 07/31/2023 Telephone [facility] CHC MED & PEDS 505 [place] [address] Walter Aiken MD 505 [place] [address] ER Follow-up Social History Tobacco Use Types [...] ED visit on : Date: 07/31/23 Hospital: [facility] Hospital Seen for: Trouble with Lungs Patient advised will forward to team nurse for follow up Please contact pt @ [phone] documented in this encounter Plan of Treatment Not on file documented as of this encounter Visit Diagnoses Not on filedocumented in this encounter Care Teams Bread Distributor Relationship Specialty Start Date End Date Walter Aiken MD [address] [place] [address] PCP - General Internal Medicine 04/05/14 [employer] 08/20/22 documented as of this encounter
--- OUTSIDE RECORDS SUMMARY | 2025-04-03 09:37 | XMS_ITS | Encounter Summary ---
Author Organization [employer] Address [address] [facility] 7 [place] [address] Care Team Providers Care Roll Cleaner Name Role Phone Walter Aiken MD Primary Care Provider [phone]- [phone] Reason for Visit * Reason Onset Date Comments PT1 06/05/2022 Encounter Details Date Type Department Care Team ([facility] Contact Info) Description 06/05/2022 Telephone [facility] MED & PEDS [address] [facility] [place] [address] Walter Aiken MD 505 [place] [address] PT1 Social History Tobacco Use Types Packs/Day [...] TC from patient requesting a PT1 [address] [place] [address] Aiken 06/10/22 at 1:30pm It Corporate Recruiter: No Wheelchair: No documented in this encounter Plan of Treatment Not on file documented as of this encounter Visit Diagnoses Not on filedocumented in this encounter Care Teams Roll Cleaner Relationship Specialty Start Date End Date Walter Aiken MD [address] [place] [address] PCP - General Internal Medicine 04/05/14 [employer] 08/20/22 documented as of this encounter
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
--- OUTSIDE RECORDS SUMMARY | 2025-04-03 09:37 | XMS_ITS | Encounter Summary ---
Author Organization [employer] Address [address] [facility] 7t [place] [address] Care Team Providers Care Ssrs Report Developer Name Role Phone Walter Aiken MD Primary Care Provider [phone] Reason for Visit * Reason Comments Med Refill Encounter Details Date Type Department Care Team ([facility] Contact Info) Description 03/17/2024 Refill [facility] CHC MED & PEDS [address] [place] [place] [address] Walter Aiken MD 505 [place] [address] Social History Tobacco Use Types Packs/Day Years [...] on filedocumented in this encounter Care Teams Ssrs Report Developer Relationship Specialty Start Date End Date Walter Aiken MD [address] [place] [phone] PCP - General Internal Medicine 04/05/14 [email or web address] 08/20/22 documented as of this encounter
--- OUTSIDE RECORDS SUMMARY | 2025-04-03 09:37 | XMS_ITS | Encounter Summary ---
Author Organization [facility] Address [address] [facility] [address] [place] [address] Phone Care Team Providers Care Drive Tester Name Role Phone Sharif Khalil MD Primary Care Provider [phone] Encounter Details Date Type Department Care Team (Late st Contact Info) Description 03/02/2018 Transcribe Orders [facility] Specimen Processing [address] [place] [address] Sharif Khalil MD [address] [facility] [place], [address] [place] [address] [email or web address] Encephalopathy, unspecified (Primary Dx) Social History Tobacco Use Types [...] as of this encounter Results * CBC (03/02/2018 6:20 AM EDT) WBC 8.24 3.40 - 11.20 K/uL [facility] RBC 4.23 3.80 - 4.80 M/uL [facility] HGB 12.5 12.0 - 15.0 g/dL [facility] HCT 38.8 36.0 - 46.0 % [facility] PLT 317 130 - 400 K/uL [facility] MCV 91.7 79.0 - 98.0 fL [facility] MCH 29.6 27.0 - 34.8 pg [facility] MCHC 32.2 31.5 - 36.0 g/dL [facility] RDW 13.7 10.8 - 14.6 % [facility] MPV 12.1 9.4 - 12.4 fl [facility] NRBC 0.00 /100 WBCs [facility] ABSOLUTE NRBC 0.00 K/uL [facility] Blood 03/02/2018 6:20 AM EDT 03/02/2018 8:38 AM EDT us Sharif Khalil MD LAB BLOOD ORDERABLES Final Resul t [facility] [address] [place] [address] * (ABNORMAL) Comprehensive metabolic panel (03/02/2018 6:20 AM EDT) SODIUM 135 133 - 146 mmol/L [facility] POTASSIUM 4.0 3.3 - 5.1 mmol/L [facility] CHLORIDE 91(L) 96 - 108 mmol/L [facility] CO2 25 21 - 35 mmol/L [facility] BUN 26(H) 6 - 19 mg/dL [facility] CREATININE 0.90 0.5 - 1.5 mg/dL [facility] GLUCOSE 345(H) 70 - 99 mg/dL [facility] ALBUMIN 3.7(L) 3.9 - 4.8 g/dL [facility] TOTAL PROTEIN 8.0 6.5 - 8.0 g/dL [facility] CALCIUM 10.7(H) 8.4 - 10.3 mg/dL [facility] ALKALINE PHOSPHATASE 170(H) 39 - 117 U/L [facility] TOTAL BILIRUBIN 0.3 0.0 - 1.2 mg/dL [facility] AST 17 0 - 37 U/L [facility] ALT 26 0 - 40 U/L [facility] GLOBULIN 4.3 1 - 4.8 g/dL [facility] EGFR 74 >59 mL/min/1.7 3m2 [facility] Comment:If patient is black, multiply result by 1.159. Estimated glomerular filtration rate calculated using the CKD-EPI equation. ANION GAP 23(H) 10 - 20 mmol/L [facility] Blood 03/02/2018 6:20 AM EDT 03/02/2018 8:38 AM EDT us Sharif Khalil MD LAB BLOOD ORDERABLES Final Resul t [address] [address] documented in this encounter Visit Diagnoses Diagnosis Encephalopathy, unspecified- Primary documented in this encounter Care Teams Drive Tester Relationship Specialty Start Date End Date Sharif Khalil MD [email or web address] PCP - General Family Medicine 02/25/18 documented as of this encounter Additional Source Comments The information contained in this document represents components of the legal health record. It is not the complete legal health record.[facility]
--- OUTSIDE RECORDS SUMMARY | 2025-04-03 09:37 | XMS_ITS | Encounter Summary ---
Author Organization [employer] Address [address] [facility] 7t [place] [address] Care Team Providers Care Linux Vmware Administrator Name Role Phone Walter Aiken MD Primary Care Provider [phone] Reason for Visit * Reason Onset Date Comments PT1 11/10/2024 Encounter Details Date Type Department Care Team (Late st Contact Info) Description 11/10/2024 Telephone [facility] MEDICINE [address] [place] [address] Walter Aiken MD [address] [facility] [place] [phone] PT1 Social History Tobacco Use Types Packs/Day [...] encounter Miscellaneous Notes * Telephone Encounter - Christine Scott - 11/10/2024 11:22 AM EDT 1 of 3 Patient calling requesting PT1 Home Address verified: Y/N: Yes Provider name or facility name: [address] [place] [address] [facility] Escort needed: Y/N: No Do you have a wheelchair: Y/N: No If yes- Manual or electric: N/A Visits: (2x monthly) 2 of 3 Patient calling requesting PT1 Home Address verified: Y/N: Yes Provider name or facility name: [address] [facility] [address] [facility] Escort needed: Y/N: No Do you have a wheelchair: Y/N: No If yes- Manual or electric: N/A Visits: (2x monthly) 3 of 3 Patient calling requesting PT1 Home Address verified: Y/N: Yes Provider name or facility name: [facility] [address] [place] [address] Escort needed: Y/N: No Do you have a wheelchair: Y/N: No If yes- Manual or electric: N/A Visits: (1x monthly) documented in this encounter Plan of Treatment Not on file documented as of this encounter Visit Diagnoses Not on filedocumented in this encounter Additional Health Concerns Assessment Noted Time PHQ-9 Depression Total Score: 13 03/04/2 025 2:20 PM EST documented as of this encounter Care Teams Linux Vmware Administrator Relationship Specialty Start Date End Date Walter Aiken MD [address] [place] [id number] PCP - General Internal Medicine 04/05/14 [employer] 08/20/22 documented as of this encounter
--- OUTSIDE RECORDS SUMMARY | 2025-04-03 09:37 | XMS_ITS | Encounter Summary ---
Author Organization [employer] Address [address] [facility] 7 [place] [address] Care Team Providers Care Group Home Paraprofessional Name Role Phone Walter Aiken MD Primary Care Provider [phone] Reason for Referral * PFT (Routine) - Closed Specialty Diagnoses / Procedures Referred By Contgómez t Referred To Contact Diagnoses SOB (shortness of breath) Procedures Pulmonary Function Test Walter Aiken MD [address] [place] [address] Phone: tel: fax: [facility] Referral ID Status Reason Start Date Expiration Date Visits Re quested Visits Authorized [id number] Closed 02/05/2024 02/04/2025 1 1 Encounter Details Date Type Department Care Team ([facility] st Contact Info) Description 02/05/2024 Orders Only [facility] CHC MED & PEDS [address] [place] [address] Walter Aiken MD [address] [place], [place] [phone] SOB (shortness of breath) (Primary Dx) Social [...] breath documented in this encounter Care Teams Group Home Paraprofessional Relationship Specialty Start Date End Date Walter Aiken MD [address] [place] [phone] PCP - General Internal Medicine 04/05/14 [employer] 08/20/22 documented as of this encounter
--- OUTSIDE RECORDS SUMMARY | 2025-04-03 09:38 | XMS_ITS | Encounter Summary ---
Author Organization [employer] Address [address] [facility] 7t [place] [address] Care Team Providers Care Desktop Operator Name Role Phone Walter Aiken MD Primary Care Provider [phone]- [phone] Encounter Details Date Type Department Care Team ([facility] st Contact Info) Description 11/07/2024 Orders Only [facility] CHC MED & PEDS 505 [facility] [place] [address] Walter Aiken MD 505 [facility] [place] [address] Gastroesophageal reflux disease without esophagitis (Primary Dx) Social History Tobacco Use Types [...] as of this encounter Visit Diagnoses Diagnosis Gastroesophageal reflux disease without esophagitis- Primary Esophageal reflux documented in this encounter Additional Health Concerns Assessment Noted Time PHQ-9 Depression Total Score: 13 025 2:20 PM EST documented as of this encounter Care Teams Desktop Operator Relationship Specialty Start Date End Date Walter Aiken MD [address] [place] [phone] PCP - General Internal Medicine 04/05/14 [employer] 08/20/22 documented as of this encounter
--- OUTSIDE RECORDS SUMMARY | 2025-04-03 09:38 | XMS_ITS | Encounter Summary ---
Author Organization [employer] Address [address] [facility] 7t [place] [address] Care Team Providers Care County Assessor Name Role Phone Walter Aiken MD Primary Care Provider +1- [phone] Reason for Visit * Reason Onset Date Comments Nurse Triage 02/17/2023 Encounter Details Date Type Department Care Team ([facility] st Contact Info) Description 02/17/2023 Telephone C CHC MED & PEDS [address] [place] [address] Walter Aiken MD [address] [place] [address] Nurse Triage Social History Tobacco Use Types [...] and decided to go to ED 02/16/23, [facility], xray showed fracture of right ankle. Pt [...] working for the pain . Patient speaks Arabic. Advised triage nurse will call patient back. documented in this encounter Plan of Treatment Not on file documented as of this encounter Visit Diagnoses Not on filedocumented in this encounter Care Teams County Assessor Relationship Specialty Start Date End Date Walter Aiken MD [address] [place] [phone] PCP - General Internal Medicine 04/05/14 [employer] 08/20/22 documented as of this encounter
--- OUTSIDE RECORDS SUMMARY | 2025-04-03 09:38 | XMS_ITS | Encounter Summary ---
Author Organization [employer] Address [address] [facility] 7t h [place] [id number] Care Team Providers Care Gasser Machine Operator Name Role Phone Walter Aiken MD Primary Care Provider [phone]- [phone] Encounter Details Date Type Department Care Team ([facility] st Contact Info) Description 03/03/2023 Orders Only [facility] CHC MED & PEDS 505 [facility] [place] [address] Walter Aiken MD [address] [place], [place] [phone] Social History Tobacco Use Types Packs/Day Years [...] on filedocumented in this encounter Care Teams Gasser Machine Operator Relationship Specialty Start Date End Date Walter Aiken MD [address] [place] [address] PCP - General Internal Medicine 04/05/14 [employer] 08/20/22 documented as of this encounter
--- OUTSIDE RECORDS SUMMARY | 2025-04-03 09:38 | XMS_ITS | Encounter Summary ---
Author Organization [employer] Address [address] [facility] 7 [place] [address] Care Team Providers Care Engraver Lettering Name Role Phone Walter Aiken MD Primary Care Provider +1- [phone] Reason for Visit * Reason Onset Date Comments PT1 01/15/2023 Encounter Details Date Type Department Care Team ([facility] st Contact Info) Description 01/15/2023 Telephone [facility] CHC MED & PEDS [address] [place] [address] Walter Aiken MD [address] [place], [place] [phone] PT1 Social History Tobacco Use Types Packs/Day [...] verified Date: n/a Time: n/a Visits: Address: [address] [place] [address], [place] [address] Facility: [facility] Dental Wheel Chair: n/a Aerial Gunner Superintendent Needed: Yes documented in this encounter Plan of Treatment Not on file documented as of this encounter Visit Diagnoses Not on filedocumented in this encounter Care Teams Engraver Lettering Relationship Specialty Start Date End Date Walter Aiken MD [address] [place] [phone] PCP - General Internal Medicine 04/05/14 [facility] [place] [employer] 08/20/22 documented as of this encounter
--- OUTSIDE RECORDS SUMMARY | 2025-04-03 09:38 | XMS_ITS | Clinical Summary ---
Author Organization [employer] Address [address] [facility] 7[address] [place] [address] Care Team Providers Care Parts Person Name Role Phone Walter Aiken MD Primary Care Provider Allergies Active Allergy Reactions Criticality Noted Date Comments Penicillin G Hives 11/19/2022 Penicillin V 07/01/2010 Other reaction(s): unspecified Medications * This document contains information received from the source organization and may not represent a complete record from that organization. cloNIDine (Catapres) 0.1 MG tablet take 1 tab. 2x a day 02/29/20 22 Active glucose-vitamin C 4-6 GM-MG oral gel 1 tab to take in case of hypoglycemia ( FS<70 mg/dl) 05/25/20 20 Active methadone (Dolophine) 10 MG/ML solution Take 3 mL by mouth every 8 (eight) hours. Active Minoxidil 5 % solution Apply 1 mL topically every 12 (twelve) hours. 03/17/20 22 Active simethicone (Mylicon,Gas-X) 125 MG capsule take 1 tablet by oral route 3 times every day 12/28/19 22 Active sucralfate (Carafate) 1 g tablet Take 1 tablet by mouth every 6 (six) hours. 02/02/20 20 Active Misc. Devices (Rollator Ultra-Light) misc Ac tive Incontinence Supply Disposable (RA Boxers Men Med Absorbancy) misc Act zeinab Blood Glucose Monitoring Suppl (FreeStyle Lite) w/Device kitIndications:Con trolled type 2 diabetes mellitus with hyperglycemia, without long-term current use of insulin (HCC) USE DIRECTED TO TEST BLOOD SUGAR FOUR TIMES DAILY 1 kit 12/24/19 23 Active lidocaine-prilocai ne (Emla) 2.5-2.5 % creamIndications:L ow back pain of multiple sites of spine with sciatica APPLY TOPICALLY TO THE AFFECTED AREA DAILY NEEDED FOR MILD PAIN 30 g 1 01/09/20 23 Active Continuous Blood Gluc Sensor (FreeStyle Celia 2 Sensor) misc To monitor the blood glucose daily 2 each 11 06/23/20 23 Active Continuous Blood Gluc Tool And Cutter Grinder (FreeStyle Celia 2 Climax) device Scan sensor every 8 hours 1 each 06/23/20 23 Active ketoconazole (Nizoral) 2 % shampooIndications :Dandruff in adult Apply topically 2 (two) times a week. 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 90 tablet 1 01/25/20 24 Active Diclofenac Sodium 1 % gelIndications:Rig ht buttock pain APPLY 2 GRAMS TOPICALLY TO THE AFFECTED AREA FOUR TIMES DAILY 100 g 1 03/09/20 24 Active FreeStyle lancetsIndications :Controlled type 2 diabetes mellitus with hyperglycemia, with long-term current use of insulin ([facility]) 1 each by Other route 4 times daily. USE FOUR TIMES DAILY 100 each 5 03/09/20 24 Active celecoxib (CeleBREX) 100 MG capsuleIndications :Chronic pain syndrome TAKE 1 CAPSULE BY MOUTH EVERY 12 HOURS 30 capsule 2 03/09/20 24 Active glucose blood (FREESTYLE LITE) test strip USE FOUR TIMES DAILY 100 strip 11 03/09/20 24 Active simvastatin (Zocor) 40 MG tabletIndications: Hypercholesterolem ia TAKE 1 TABLET(40 MG) BY MOUTH AT BEDTIME 90 tablet 1 07/18/19 25 Active nicotine (Nicoderm CQ) 14 MG/24HR patch Place 1 patch on the skin 1 (one) time each day at the same time. 42 patch 07/19/19 25 Active nicotine (Nicoderm CQ) 7 MG/24HR patch Place 1 patch on the skin 1 (one) time each day at the same time. 14 patch 07/19/19 25 Active nicotine polacrilex (Commit) 4 MG lozenge Dissolve 1 lozenge (4 mg) in the mouth every 2 (two) hours if needed for smoking cessation. 100 lozenge 07/19/19 25 Active Blood Pressure kit 1 each 2 times daily. 1 kit 07/19/19 25 026 Active naloxone (Narcan) 4 mg/0.1 mL nasal spray Administer 1 spray (4 mg) into affected nostril(s) if needed for opioid reversal. May repeat every 2-3 minutes if needed, alternating nostrils, until medical assistance becomes available. 2 each 07/19/19 25 026 Active naloxone (Narcan) 4 mg/0.1 mL nasal spray Administer 1 spray (4 mg) into affected nostril(s) if needed for opioid reversal. 2 each 2 07/19/19 25 Active metFORMIN (Glucophage) 1000 MG tablet TAKE 1 TABLET BY MOUTH TWICE DAILY 60 tablet 11 08/16/19 25 Active baclofen (Lioresal) 10 MG tabletIndications: Chronic pain syndrome TAKE 1 TABLET(10 MG) BY MOUTH EVERY 8 HOURS 90 tablet 08/23/19 25 Active omeprazole (PriLOSEC) [address] capsule TAKE 1 CAPSULE BY MOUTH ONCE DAILY IN THE MORNING BEFORE A MEAL 90 capsule 3 11/08/19 25 Active pantoprazole (Protonix) 40 MG EC tabletIndications: Gastroesophageal reflux disease without esophagitis Take 1 tablet (40 mg) by mouth before breakfast. Do not crush, chew, or split. 30 tablet 11 11/08/19 25 026 Active mirtazapine (Remeron Sumaya-Tab) 30 MG disintegrating tabletIndications: Other insomnia DISSOLVE 1 TABLET(30 MG) ON THE TONGUE AT BEDTIME 30 tablet 3 12/02/19 25 Active FLUoxetine (PROzac) 20 MG capsule TAKE 2 CAPSULES BY MOUTH EVERY DAY IN THE MORNING 60 capsule 3 12/13/19 25 Active docusate sodium (Colace) 100 MG capsule Take 1 capsule (100 mg) by mouth Once per day. 90 capsule 3 12/13/19 25 Active ferrous sulfate (FeroSul) 325 (65 Fe) MG tablet TAKE 1 TABLET BY MOUTH TWICE DAILY WITH FOOD. TAKE DAILY IF IT CAUSES CONSTIPATION 180 tablet 1 12/14/19 25 Active ibuprofen 600 MG tabletIndications: Chronic pain syndrome TAKE 1 TABLET(600 MG) BY MOUTH EVERY 8 HOURS NEEDED FOR MILD PAIN OR MODERATE PAIN 90 tablet 1 12/21/19 25 Active insulin syringe-needle U-100 (UltiCare Insulin Syringe) 31G X 11/18 0.3 mL miscIndications:Di abetic ulcer of left lower leg (HCC) USE DIRECTED TO INJECT INSULIN 100 each 5 12/28/19 25 Active gabapentin (Neurontin) 800 MG tablet TAKE 1 TABLET BY MOUTH THREE TIMES DAILY 90 tablet 2 01/26/20 25 Active gemfibrozil (Lopid) 600 MG tabletIndications: Hypercholesterolem ia TAKE 1 TABLET BY MOUTH TWICE DAILY 180 tablet 11 02/18/20 25 Active lisinopril-hydroCH LOROthiazide 20-12.5 MG tablet TAKE 1 TABLET BY MOUTH EVERY DAY 30 tablet 11 02/18/20 25 Active baclofen (Lioresal) 10 MG tabletIndications: Chronic pain syndrome TAKE 1 TABLET(10 MG) BY MOUTH EVERY 8 HOURS 90 tablet 02/18/20 25 Active Active Problems Problem Noted Date Diagnosed Date Tobacco dependence 07/19/2024 Osteoarthritis of hip 02/05/2024 Polysubstance abuse 05/21/2022 Opioid abuse 03/23/2017 Anemia 11/10/2013 Hypercholesterolemia 11/10/2013 Hypertension 11/10/2013 Abdominal pain 03/25/2012 Constipation 03/25/2012 Diabetes type 2, controlled 03/25/2012 Encounters Date Type Department Care Team Description 03/15/[address] [address] Walter Aiken MD No Show 03/14/2025 Telephone [facility] [address] [place] [address] Walter Aiken MD Chart Prep 03/08/[address] [address] Walter Aiken MD Nurse Triage 03/01/2025 Orders Only [facility] [address] [place] [address] Walter Aiken MD Breast pain, left (Primary Dx) 02/27/[address] [address] Walter Aiken MD Order 02/16/2025 Refill [facility] [address] [place] [address] Walter Aiken MD Hypercholesterolemia; Chronic pain syndrome 02/02/2025 Travel 02/01/2025 Telephone [facility] [address] [place] [address] Walter Aiken MD Chart Prep 01/24/[address] [address] Walter Aiken MD Nurse Triage 01/24/2025 Refill [facility] [address] [place] [address] Walter Aiken MD 01/18/2025 Orders Only [facility] [address] [place] [address] Walter Aiken MD Encounter for screening mammogram for malignant neoplasm of breast (Primary Dx) 01/05/2025 Telephone [facility] [address] [place] [address] Walter Aiken MD Referral from Last 3 Months Immunizations Immunization Administration Dates Next Due Hep B, adult [...] 76 09/06/2024 2:17 PM EST Temperature 36.7 C (98.1 F) 07/19/2024 10:59 AM EST Respiratory Rate 20 09/06/2024 2:17 PM EST Oxygen Saturation 96% 09/06/2024 2:17 PM EST Inhaled Oxygen Concentration - - Weight 60.3 kg (133 lb) 09/06/2024 2:17 PM EST Height 149.9 cm (4' 11 ) 09/06/2024 2:17 PM EST Body Mass Index 26.86 09/06/2024 2:17 PM EST Plan of Treatment Health Maintenance Due Date Last Done Comments CT Colonography 1966 Colonoscopy 1966 FIT 1966 HIV Screening 1966 Lipid Panel 1966 Sigmoidoscopy 1966 Disability Screening 1966 Diabetes: Foot Exam 1976 Eye Exam 1976 Hepatitis C Screening 1984 Pneumococcal Vaccine: 50+ Years (1 of 2 - PCV) 1985 Dental Oral Exam 12/16/2012 06/16/2012, 06/16/2012 Dental Prophylaxis 12/16/2012 06/16/2012, 06/16/2012 Dental X-Ray: Bitewings 06/17/2013 06/16/2012, 06/16 Zoster Vaccines (1 of 2) 2016 Pap Smear 01/18/2022 01/18/2019 Cervical Cancer Screening 01/19/2024 HPV/Cotest 01/19/2024 01/18/2019 Diabetes: Urine Protein Screening 06/23/2024 06/23/2023 Diabetes: Hemoglobin A1C 12/07/2024 025, 04/29/2024, 01/25/2024, Additional history exists Mammogram 02/23/2025 02/23/2023, 02/04, 12/09/2013 COVID-19 Vaccine ( season) 2025 11/16/2020 Influenza Vaccine (#1) 2025 9, 03/23/2017, 05/07/2015 Depression Monitoring 03/09/2025 09/06/2024, 025 FOBT 03/28/2025 03/28/2024 Tobacco Screening 07/19/2025 07/19/2024 Alcohol/Substance Use Screening 09/06/2025 09/06/2024 SDOH Screening 09/06/2025 09/06/2024 Dental X-Ray: Full [...] on patient's age to complete this topic Hepatitis A Vaccines Aged Out No long er eligible based on patient's age to complete this topic IPV Vaccines Aged Out No longer eligi ble based on patient's age to complete this topic Meningococcal B Vaccine Aged Out No l onger eligible based on patient's age to complete [...] Name Priority Date/Time Associated Diagnosis Comments POCT GLYCATED HEMOGLOBIN, TOTAL Routine 09/06/2024 3:25 PM EST Controlled type 2 diabetes mellitus with hyperglycemia, with long-term current use of insulin ([facility]) LAB COLOGUARD COLON CANCER SCREEN Routine 03/28/2024 7:56 PM EDT Screening for colon cancer ALBUMIN, RANDOM URINE W/CREATININE Routine 06/23/2023 10:25 AM EST Controlled type 2 diabetes mellitus with hyperglycemia, with long-term current use of insulin ([facility]) BI MAMMOGRAM DIAGNOSTIC TOMOSYNTHESIS BILATERAL Routine 02/23/2023 [...] Recently Relevant to Health Maintenance Results * (ABNORMAL) POCT HGB A1C (09/06/2024 3:25 PM EST) Hemoglobin A1C 9.7(A) 4.0 - 6.0 % QC Media Lot # [id number] Lot# Expiration Date ,538,[phone] Blood 09/06/2024 3:25 PM EST Walter Aiken MD POINT OF CARE TEST ENTER/ED IT ORDERABLES Final Result * Cologuard?? colon cancer screening (03/28/2024 7:56 PM EDT) Cologuard Result Negative Negative 04/02/20 24 1:17 PM EDT [employer] (CLIA #:[id number]) Comment: NEGATIVE TEST RESULT. A negative Cologuard [...] (Yoko Funez al, N Engl J Med 2014;370(14):5499-6227) The normal value (reference range) for this assay is negative. COLOGUARD RE-SCREENING RECOMMENDATION: Periodic colorectal cancer screening is an important part of preventive healthcare for asymptomatic individuals at average risk for colorectal cancer. Following a negative Cologuard result, the [place] [employer] Society and U.S. Multi-Society Task Force screening guidelines recommend a Cologuard re-screening interval of 3 years. References: [place] [employer] Guideline for Colorectal Cancer Screening: https://www.cancer.org/cancer/qsigg-ikqhkg-eupmcf/scmlcvkkr-bjudgkgzh-gnictxd/ac s-rec ommendations.html.; Rayshawn DK, Cruzito ALVAREZ, Elyssa TaylorK, Colorectal Cancer Screening: Recommendations for Physicians and Patients from the U.S. Multi-Society Task Force on Colorectal Cancer Screening , Am J Gastroenterology 2017; 112:3382-4458. TEST DESCRIPTION: Composite algorithmic analysis of stool [...] screened with both Cologuard and colonoscopy. (Yoko Kilgore, N Engl J Med 2014;370(14):1380-2880.) Cologuard may produce a false negative or false positive result (no colorectal cancer or precancerous polyp present at colonoscopy follow up). A negative Cologuard test result does not guarantee the absence of CRC or advanced adenoma (pre-cancer). The current Cologuard screening interval is every 3 years. ([place] [employer] Society and U.S. Multi-Society Task Force). Cologuard performance data in a 10,000 patient pivotal study using colonoscopy as the reference method can be accessed at the following location: www.[employer]story/results. Additional description of the Cologuard test process, warnings and precautions can be found at www.cologuard.com. Stool specimen (specimen) 03/28/2024 7:56 PM EDT 03/30/2024 9:45 AM EDT us Walter Aiken MD LAB MOLECULAR DIAGNOSTICS O RDERABLES Final Result Performing Organization Address [facility] Co de Phone Number [facility] (CLIA #:[id number]) [address] [place] [address], * (ABNORMAL) Albumin, Random Urine W/Creatinine (06/23/2023 10:25 AM EST) Creatinine, Urine 201.70 mg/dL [facility] Microalbumin Urine 1,587.0 mg/L H [facility] Microalbum Creatinine Ratio Ur 786.8(H) <30 ug/mg cr [facility] Comment:Albumin/Creatinine R atio Reference Ranges: Normal: < 30 ug/mg creatinine Microalbuminuria: 30 - 300 ug/mg creatinineClinical Albuminuria: > 300 ug/mg creatinine Urine (Urine, Random) 06/23/2023 10:25 AM EST 06/23/2023 5:33 PM EST us Walter Aiken MD LAB URINE ORDERABLES Final Result Performing Organization Address [facility]/ZIP Co de Phone Number [facility] [address] [place] [phone] * BI Mammogram Diagnostic Tomosynthesis Bilateral (02/23/2023 4:14 PM EDT) Anatomical Region Laterality Modality Breast Bilateral Mammography 02/23/2023 4:14 PM EDT Narrative 02/23/2023 4:56 PM EDT [facility] [address] [place], [place] [address] Mammography Report Signed Patient: Blank Rosas I MR#: [id number] : 1965 Acct:[id number] Age/Sex: 57 / F ADM Date: 02/23/23 Loc: HO.MAMMO Attending Dr: Walter Aiken MD Ordering Physician: Walter Aiken MD Results: 2 Benign Findings Date of Service: 02/23/23 Follow Up: 1 Year From [facility] Mammogram Procedure(s): MM tomosynthesis diagnostic BI Accession Number(s): [id number] cc: Walter Aiken MD EXAMINATION: MM DIAGNOSTIC [...] in OV> 02/23/23 1653 DD/ 1614 TD/TT: Pantry Goods Worker: Procedure Note Donotuseinterpreter, Image - 02/23/2023 [facility] [address] [place] [address] Mammography Report Signed Patient: Blank Rosas [facility]#: [id number] : 1965Acct:[id number] Age/Sex: 57 / FADM Date: 02/23/23 Loc: HO.MAMMO Attending Dr: Walter Aiken MD Ordering Physician: Walter Aiken MDResults: 2 Benign Findings Date of Service: 02/23/23Follow Up: 1 Year From [facility] Mammogram Procedure(s): MM tomosynthesis diagnostic BI Accession Number(s): [id number] cc: Walter Aiken MD EXAMINATION: MM DIAGNOSTIC [...] in OV> 02/23/23 1653 DD/ 1614 TD/TT: Pantry Goods Worker: us Walter Aiken MD IMG BI PROCEDURES Final Res ult * HPV mRNA E6/E7 (01/18/2019 3:23 PM EDT) HPV mRNA E6/E7 Not Detected NOT DETECTED [facility] Comment: This test was performed using the APTIMA(R) HPV Assay ([employer] This assay detects E6/E7 viral messenger RNA (mRNA) from 14 high-risk HPV types (16,18,31,33,35,39,45,51, 52,56,58,59,66,68). For additional information please refer to: http://education.Utility Scale Solar/faq/ZES953u1 (This link is being provided for informational/ educational purposes only.) The analytical performance characteristics of this assay have been determined by [facility] [place], [place]. The modifications have not been cleared or approved by the FDA. This assay has been validated pursuant to the CLIA regulations and is used for clinical purposes. Test Performed by [facility] [place], [address] [place] [address] Phillip Gutierrez M.D., Ph.D., Director of Laboratories , CLIA [id number] Please note: Effective 03/17/2016, HPV testing will be performed using [employer]'s APTIMA test which targets mRNA. Detecting mRNA instead of DNA, as in older methods, offers significant improvements in specificity. 01/18/2019 3:23 PM EDT us Krystal Shields CNM HISTORICAL/NON ORDERABLE LABS Final Result [facility] [address] * Pap Smear (01/18/2019) Pap smear performed us Historical Provider MD HEALTH MAINTENANCE Final Result from Last 3 Months or Most Recently Relevant to Health Maintenance Insurance MEDICARE [facility] STANDARD * Guarantor: Blank Rosas Account Type Relation to Patient Date of Phone Billing Address Personal/Family Self [address] [place] [address] Care Teams Parts Person Relationship Specialty Start Date End Date Walter Aiken MD [address] [place] [address] [place] PCP - General Internal Medicine 04/05/14 [employer] 08/20/22
--- OUTSIDE RECORDS SUMMARY | 2025-04-03 09:38 | XMS_ITS | Encounter Summary ---
Author Organization [employer] Address [address] [facility] 7 [place] [address] Care Team Providers Care Toe Trimmer Name Role Phone Walter Aiken MD Primary Care Provider [phone] Reason for Visit * Reason Onset Date Comments Durable Medical Equipment 03/11/2023 Encounter Details Date Type Department Care Team ([facility] st Contact Info) Description 03/11/2023 Telephone [facility] [address] [place] [address] Walter Aiken MD [address] [place] [address] Durable Medical Equipment Social History Tobacco Use [...] Guajardo LPN - 03/16/2023 12:28 PM EDT Manager In Training called pt regarding PCP message below. No answer Vm to return call. Forward to Ri for scheduling pt to discuss DME need. * Telephone Encounter - Walter Aiken MD - 03/16/2023 12:14 PM EDT Please find out what would be the indication of the shower chair and walker. Ideally I should see Ms Blank Rosas to prescribe these DMEs. * Telephone Encounter - Yesica Guajardo LPN - 03/11/2023 11:49 AM EDT [...] on filedocumented in this encounter Care Teams Toe Trimmer Relationship Specialty Start Date End Date Walter Aiken MD [address] [place] [address] PCP - General Internal Medicine 04/05/14 [employer] 08/20/22 documented as of this encounter
--- OUTSIDE RECORDS SUMMARY | 2025-04-03 09:38 | XMS_ITS | Encounter Summary ---
Author Organization [employer] Address [address] [facility] [address] [place] [address] Care Team Providers Care Grants And Contracts Assistant Name Role Phone Walter Aiken MD Primary Care Provider Reason for Visit * Reason Onset Date Comments PT1 03/11/2023 Encounter Details Date Type Department Care Team ([facility] Contact Info) Description 03/11/2023 Telephone [facility] [address] [place] [address] Walter Aiken MD [address] [place], [place] [phone] PT1 Social History Tobacco Use Types Packs/Day [...] Date: 03/17/23 Time: 12 pm Visits: Address: [address] [place] [id number] Facility: [facility] Wheel Chair: n/a Senior Quality Assurance Analyst Needed: no PT1 Date: 03/18/23 Time: 10:30 am Visits: Address: [address] [address] Facility: Gastroenterology Wheel Chair: n/a Senior Quality Assurance Analyst Needed: no PT1 Date: 03/19/23 Time: 10:30 am Visits: Address: [address] [place] [address] Facility: Orthopedic Wheel Chair: n/a Senior Quality Assurance Analyst Needed: no documented in this encounter Plan of Treatment Not on file documented as of this encounter Visit Diagnoses Not on filedocumented in this encounter Care Teams Grants And Contracts Assistant Relationship Specialty Start Date End Date Walter Aiken MD [address] [place] [address] PCP - General Internal Medicine 04/05/14 [facility] [employer] 08/20/22 documented as of this encounter
--- OUTSIDE RECORDS SUMMARY | 2025-04-03 09:38 | XMS_ITS | Encounter Summary ---
Author Organization [employer] Address [address] [facility] [address]t [place] [address] Care Team Providers Care Hander In Name Role Phone Walter Aiken MD Primary Care Provider [phone]- [phone] Reason for Visit * Reason Onset Date Comments Nurse Triage 01/12/2024 Encounter Details Date Type Department Care Team (Late st Contact Info) Description 01/12/2024 Telephone [facility] [address] [place] [address] Walter Aiken MD [address] [facility] [place] [phone] Nurse Triage Social History Tobacco Use Types [...] report area open. Advised to come to [facility] today open till 730pm. Pt reports will [...] on filedocumented in this encounter Care Teams Hander In Relationship Specialty Start Date End Date Walter Aiken MD [address] [place] [phone] PCP - General Internal Medicine 04/05/14 [employer] 08/20/22 documented as of this encounter
--- OUTSIDE RECORDS SUMMARY | 2025-04-03 09:38 | XMS_ITS | Encounter Summary ---
Author Organization [employer] Address [address] [facility] [address] [place] [address] Care Team Providers Care Client Services Account Manager Name Role Phone Walter Aiken MD Primary Care Provider [phone]- [phone] Reason for Visit * Reason Onset Date Comments Med Refill 02/03/2023 Encounter Details Date Type Department Care Team (Late st Contact Info) Description 02/03/2023 Telephone [facility] [address] [place], [place] [phone] Walter Aiken MD [address] [place] [address] Med Refill Social History Tobacco Use Types [...] on filedocumented in this encounter Care Teams Client Services Account Manager Relationship Specialty Start Date End Date Walter Aiken MD [address] [facility] [place] [address] PCP - General Internal Medicine 04/05/14 [employer] 08/20/22 documented as of this encounter
== END 2025-04-03 09:02 | disposition home or self-care (01) ==
LOC: HO.MAMMO 09:01
PROVIDERS: PCP Internal Medicine; Visit Provider Internal Medicine
DX: N64.4 Mastodynia (principal)
CPT/HCPCS: 76642; 77062; 77066

== ENCOUNTER 2025-06-12 14:27 | Outpatient (REF) | payer MEDICARE, MEDICAID, SELFPAY ==
--- OUTSIDE RECORDS SUMMARY | 2025-06-12 13:45 | XMS_ITS | Encounter Summary ---
Author Organization [employer] Address [address] [place] [address] Care Team Providers Care Telepathist Name Role Phone Walter Aiken MD Primary Care Provider [phone] Reason for Referral * Consultation (Routine) - Pending Review Specialty Diagnoses / Procedures Referred By Myra aguilera Referred To Contact Gastroenterology Diagnoses Other constipation Rectal bleed Walter Aiken MD [address] [place] [address] Phone: tel: fax: Referral ID Status Reason Start Date Expiration Date Visits Requested Visits Authorized [id number] Pending Review Specialty Services Required 06/12/2025 06/12/2026 1 1 Reason for Visit * Reason Comments Rectal Bleeding Encounter Details Date Type Department Care Team (Latest Contact Info) Description 06/12/2025 1:45 PM EST Office Visit [facility] [address], [place] [phone] Walter Aiken MD [address] [place] [address] Other constipation (Primary Dx); Rectal bleed; Primary insomnia; Pain in other joint; Uncontrolled type 2 diabetes mellitus with hyperglycemia (HCC); Chronic pain syndrome; Other insomnia; Tobacco dependence Social History Tobacco Use Types Packs/Day Years [...] Sign Reading Time Taken Comments Blood Pressure 136/74 06/12/2025 1:59 PM EST Pulse 82 06/12/2025 1:59 PM EST Temperature 36.8 C (98.2 F) 06/12/2025 1:59 PM EST Respiratory Rate 20 06/12/2025 1:59 PM EST Oxygen Saturation 92% 06/12/2025 1:59 PM EST Inhaled Oxygen Concentration - - Weight 63.5 kg (140 lb) 06/12/2025 1:59 PM EST Height 149.9 cm (4' 11 ) 06/12/2025 1:59 PM EST Body Mass Index 28.28 06/12/2025 1:59 PM EST documented in this encounter Progress Notes * Walter Aiken MD - 06/12/2025 1:45 PM EST SUBJECTIVE Blank Rosas is a 59 y.o. female who presents for Rectal Bleeding. Rectal Bleeding Pertinent negatives include no arthralgias, chest pain, chills, coughing, diaphoresis, joint swelling or numbness. Blank Rosas, 59-year-old female - Rectal bleeding for almost 2 weeks, daily, described as a lot - Constipation, unable to move bowels - Abdominal and liver pain - Insomnia, unable to sleep at night, awake until 7-8 AM, sometimes up for almost 2 days - Excessive daytime sleepiness, falling asleep while standing, frequent falls resulting in bruises on back, lump on forehead, and nose injury - Severe pain in both pinky fingers, pressure radiating upwards - Poor strength - Concern due to sister's history of colon cancer Problem List[1] Allergies[2] Medications Ordered Prior to Encounter[3] Review of Systems Constitutional: Negative for activity change, appetite change, chills and diaphoresis. HENT: Negative for dental problem, drooling, ear discharge, ear pain and hearing loss. Eyes: Negative for pain, discharge and itching. Respiratory: Negative for cough, choking and chest tightness. Cardiovascular: Negative for chest pain and leg swelling. Gastrointestinal: Positive for blood in stool and hematochezia. Negative for diarrhea. Genitourinary: Negative for difficulty urinating, dyspareunia, dysuria, enuresis, flank pain, frequency and genital sores. Musculoskeletal: Negative for arthralgias, gait problem and joint swelling. Skin: Negative for pallor. Neurological: Negative for dizziness, seizures, speech difficulty, light- headedness and numbness. Psychiatric/Behavioral: Negative for behavioral problems, confusion and decreased concentration. OBJECTIVE Vitals: 06/12/25 1359 BP: 136/74 BP Location: Left arm Patient Position: Sitting BP Cuff Size: Adult Pulse: 82 Resp: 20 Temp: 98.2 ??F (36.8 ??C) TempSrc: Oral SpO2: 92% Weight: 140 lb (63.5 kg) Height: 4' 11 (1.499 m) Physical Exam Constitutional: General: She is not in acute distress. Appearance: Normal appearance. She is not ill-appearing, toxic-appearing or diaphoretic. Cardiovascular: Rate and Rhythm: Normal rate. Pulmonary: Effort: Pulmonary effort is normal. Skin: General: Skin is warm. Neurological: General: No focal deficit present. Mental Status: She is alert. Assessment/Plan Assessment/Plan Diagnoses and all orders for this visit: Other constipation - bisacodyl (Dulcolax) 5 MG EC tablet; Take 1 tablet (5 mg) by mouth if needed each day for constipation. Do not crush, chew, or split. - Referral to Gastroenterology; Future Rectal bleed - CBC auto differential; Future - Basic Metabolic Panel; Future - Referral to Gastroenterology; Future Primary insomnia - Vitamin B12/Folate, Serum Panel; Future Pain in other joint - Sed Rate by Modified Westergren; Future - celecoxib (CeleBREX) 100 MG capsule; TAKE 1 CAPSULE BY MOUTH EVERY 12 HOURS Uncontrolled type 2 diabetes mellitus with hyperglycemia (HCC) - POCT Glucose Chronic pain syndrome - celecoxib (CeleBREX) 100 MG capsule; TAKE 1 CAPSULE BY MOUTH EVERY 12 HOURS Other insomnia Comments: appropriate sleep hygiene Increase mirtazapine to 45 mg once a day Orders: - mirtazapine (Remeron Sumaya-Tab) 45 MG disintegrating tablet; Take 1 tablet (45 mg) by mouth at bedtime. Tobacco dependence Other orders - Multiple Vitamin (multivitamin) tablet; Take 1 tablet by mouth Once per day. Other constipation: - Recommended high fiber diet and adequate hydration. Referral to behavioral health case manager for dietary guidance. Rectal bleed: - Rectal bleeding of 2 weeks duration. Concern for possible underlying pathology, given family history of colon cancer. - Referral to 4th grade math teacher for colonoscopy. Ordered CBC to assess for anemia. Primary insomnia: - Insomnia with difficulty sleeping at night and excessive daytime sleepiness. - Prescribed Remeron 45 mg for sleep. Pain in other joint: - Pain in bilateral fifth fingers with radiation and significant discomfort. Continue w/ diclofenac gel. Chronic pain syndrome: - Chronic pain with poor strength and multiple ecchymoses from falls. - Prescribed multivitamin. Ordered blood work to assess vitamin levels. Tobacco dependence: - Tobacco use ongoing. Declined assistance with smoking cessation. This note was drafted using Ambient (AI) technology. The patient/patient's guardian has been informed and has consented to the use of this technology: Yes [1] Patient Active Problem List Diagnosis Abdominal pain Anemia Constipation Diabetes type 2, controlled (HCC) Hypercholesterolemia Hypertension Opioid abuse (HCC) Polysubstance abuse (HCC) Osteoarthritis of hip Tobacco dependence [2] Allergies Allergen Reactions Penicillin G Hives Penicillin V Other reaction(s): unspecified [3] Current Outpatient Medications on File Prior to Visit Medication Sig Dispense Refill baclofen (Lioresal) 10 MG tablet TAKE 1 TABLET(10 MG) BY MOUTH EVERY 8 HOURS 90 tablet 0 baclofen (Lioresal) 10 MG tablet TAKE 1 TABLET(10 MG) BY MOUTH EVERY 8 HOURS 90 tablet 0 baclofen (Lioresal) 10 MG tablet TAKE 1 TABLET(10 MG) BY MOUTH EVERY 8 HOURS 90 tablet 0 Blood Glucose Monitoring Suppl (Niblitze) w/Device kit USE DIRECTED TO TEST BLOOD SUGAR FOUR TIMES DAILY 1 kit 0 Blood Pressure kit 1 each 2 times daily. 1 kit 0 celecoxib (CeleBREX) 100 MG capsule TAKE 1 CAPSULE BY MOUTH EVERY 12 HOURS 30 capsule 2 cloNIDine (Catapres) 0.1 MG tablet take 1 tab. 2x a day Continuous Blood Gluc Marketing Planner (FreeStyle Celia 2 [place]) device Scan sensor every 8 hours 1 each 0 Continuous Blood Gluc Sensor (FreeStyle Celia 2 Sensor) [facility] To monitor the blood glucose daily 2 each 11 Diclofenac Sodium 1 % gel To apply to the affected area 2 times a day 100 g 0 Diclofenac Sodium 1 % gel APPLY 2 GRAMS TOPICALLY TO THE AFFECTED AREA FOUR TIMES DAILY 100 g 1 docusate sodium (Colace) 100 MG capsule Take 1 capsule (100 mg) by mouth Once per day. 90 capsule 3 ferrous sulfate (FeroSul) 325 (65 Fe) MG tablet TAKE 1 TABLET BY MOUTH TWICE DAILY WITH FOOD. TAKE DAILY IF IT CAUSES CONSTIPATION 180 tablet 1 FLUoxetine (PROzac) 20 MG capsule TAKE 2 CAPSULES BY MOUTH EVERY DAY IN THE MORNING 60 capsule 3 FreeStyle lancets 1 each by Other route 4 times daily. USE FOUR TIMES DAILY 100 each 5 gabapentin (Neurontin) 800 MG tablet TAKE 1 TABLET BY MOUTH THREE TIMES DAILY 90 tablet 2 gemfibrozil (Lopid) 600 MG tablet TAKE 1 TABLET BY MOUTH TWICE DAILY 180 tablet 11 glucagon (Gvoke HypoPen 2-Pack) 0.5 MG/0.1ML injection Inject 0.1 mL (0.5 mg) under the skin 1 (one) time if needed for low blood sugar for up to 2 doses. 1 each 1 glucose blood (FREESTYLE LITE) test strip USE FOUR TIMES DAILY 100 strip 11 glucose-vitamin C 4-6 GM-MG oral gel 1 tab to take in case of hypoglycemia ( FS<70 mg/dl) ibuprofen 600 MG tablet TAKE 1 TABLET(600 MG) BY MOUTH EVERY 8 HOURS NEEDED FOR MILD PAIN OR MODERATE PAIN 90 tablet 1 Incontinence Supply Disposable (Cluepedia) misc insulin glargine (Basaglar KwikPen) 100 UNIT/ML pen Inject 30 Units under the skin at bedtime. 3 mL12 insulin glargine (Lantus) 100 UNIT/ML injection INJECT 30 UNITS UNDER THE SKIN EVERY NIGHT AT BEDTIME 10 mL 3 insulin syringe-needle U-100 (UltiCare Insulin Syringe) 31G X 5/16 0.3 mL misc USE DIRECTED TO INJECT INSULIN 100 each 5 ketoconazole (Nizoral) 2 % shampoo Apply topically 2 (two) times a week. 120 mL 3 lidocaine-prilocaine (Emla) 2.5-2.5 % cream APPLY TOPICALLY TO THE AFFECTED AREA DAILY NEEDED FOR MILD PAIN 30 g 1 linaGLIPtin (Tradjenta) 5 MG tablet Take 1 tablet (5 mg) by mouth Once per day. 90 tablet 1 lisinopril-hydroCHLOROthiazide 20-12.5 MG tablet TAKE 1 TABLET BY MOUTH EVERY DAY 30 tablet 11 metFORMIN (Glucophage) 1000 MG tablet TAKE 1 TABLET BY MOUTH TWICE DAILY 60 tablet 11 methadone (Dolophine) 10 MG/ML solution Take 3 mL by mouth every 8 (eight) hours. Minoxidil 5 % solution Apply 1 mL topically every 12 (twelve) hours. mirtazapine (Remeron Sumaya-Tab) 30 MG disintegrating tablet DISSOLVE 1 TABLET(30 MG) ON THE TONGUE ATBEDTIME 30 tablet 3 Misc. Devices (Rollator Ultra-Light) misc naloxone (Narcan) 4 mg/0.1 mL nasal spray Administer 1 spray (4 mg) into affected nostril(s) if needed for opioid reversal. May repeat every 2-3 minutes if needed, alternating nostrils, until medicalassistance becomes available. 2 each 0 naloxone (Narcan) 4 mg/0.1 mL nasal spray Administer 1 spray (4 mg) into affected nostril(s) if needed for opioid reversal. 2 each 2 nicotine (Nicoderm CQ) 14 MG/24HR patch Place 1 patch on the skin 1 (one) time each day at the sametime. 42 patch 0 nicotine (Nicoderm CQ) 7 MG/24HR patch Place 1 patch on the skin 1 (one) time each day at the same time. 14 patch 0 nicotine polacrilex (Commit) 4 MG lozenge Dissolve 1 lozenge (4 mg) in the mouth every 2 (two) hours if needed for smoking cessation. 100 lozenge 0 omeprazole (PriLOSEC) [address] capsule TAKE 1 CAPSULE BY MOUTH ONCE DAILY IN THE MORNING BEFORE A MEAL 90 capsule 3 pantoprazole (ProtoNix) 40 MG EC tablet TAKE 1 TABLET(40 MG) BY MOUTH EVERY DAY BEFORE BREAKFAST 90tablet 3 pantoprazole (Protonix) 40 MG EC tablet Take 1 tablet (40 mg) by mouth before breakfast. Do not crush, chew, or split. 30 tablet 11 pen needle 32G x 4 mm misc Use as instructed 100 each 12 simethicone (Mylicon,Gas-X) 125 MG capsule take 1 tablet by oral route 3 times every day simvastatin (Zocor) 40 MG tablet TAKE 1 TABLET(40 MG) BY MOUTH AT BEDTIME 90 tablet 1 sucralfate (Carafate) 1 g tablet Take 1 tablet by mouth every 6 (six) hours. [DISCONTINUED] baclofen (Lioresal) 10 MG tablet TAKE 1 TABLET(10 MG) BY MOUTH EVERY 8 HOURS 90 tablet 0 [DISCONTINUED] insulin syringe-needle U-100 (UltiCare Insulin Syringe) 31G X 5/16 0.3 mL misc USE DIRECTED TO INJECT INSULIN 100 each 5 No current facility-administered medications on file prior to visit. documented in this encounter Plan of Treatment Scheduled Referrals Name Type Priority Associated Diagnoses Order Schedule Referral to Gastroenterology Outpatient Referral Routine Other constipation Rectal bleed Expected: 06/12/2025 (Approximate), Expires: 06/12/2026 documented as of this encounter Goals Goal Patient Goal Type Associated Problems Recent Progress Patient-Stated? Author Help patients manage their type 2 diabetes Care Plan Help patients manage their type 2 diabetes Ghada Jacobson Weekly blood pressure task Care Plan Weekly blood pressure task No Ghada Meehan Help patients manage their type 2 diabetes Care Plan Help patients manage their type 2 diabetes No Ghada Meehan Patient has chronic kidney disease Care Plan Patient has chronic kidney disease No Ghada Meehan Weekly blood pressure task Care Plan Weekly blood pressure task No Zoran Ghada Patient has chronic kidney disease Care Plan Patient has chronic kidney disease No Ghada Meehan Weekly blood pressure task Care Plan Weekly blood pressure task No Anamika Charlton RN Weekly blood pressure task Care Plan Weekly blood pressure task No Anamika Charlton RN Patient has chronic kidney disease Care Plan Patient has chronic kidney disease No Anamika Charlton RN Patient has chronic kidney disease Care Plan Patient has chronic kidney disease No Anamika Charlton RN Weekly blood pressure task Care Plan Weekly blood pressure task No Renetta Vega MA Weekly blood pressure task Care Plan Weekly blood pressure task No Renetta Vega [place] Patient has chronic kidney disease Care Plan Patient has chronic kidney disease No Renetta Vega [place] Patient has chronic kidney disease Care Plan Patient has chronic kidney disease No Renetta Vega MA documented as of this encounter Procedures Procedure Name Priority Date/Time Associated Diagnosis Comments POCT GLUCOSE Routine 06/12/2025 3:14 PM EST Uncontrolled type 2 diabetes mellitus with hyperglycemia (HCC) VITAMIN B12/FOLATE, SERUM PANEL Routine 06/12/2025 2:32 PM EST Primary insomnia CBC WITH AUTO DIFFERENTIAL Routine 06/12/2025 2:32 PM EST Rectal bleed SED RATE BY MODIFIED WESTERGREN Routine 06/12/2025 2:32 PM EST Pain in other joint BASIC METABOLIC PANEL Routine 06/12/2025 2:32 PM EST Rectal bleed documented in this encounter Results * (ABNORMAL) POCT Glucose (06/12/2025 3:14 PM EST) [facility] Glucose Blood, POC 299(A) 60 - 200 mg/dL QC Media Lot # [id number] Lot# Expiration Date [id number] Comment:random Blood Capillary blood specimen / Unknown 06/12/2025 3:14 PM EST us Walter Aiken MD POINT OF CARE TEST ENTER/ED IT ORDERABLES Final Result * (ABNORMAL) Sed Rate by Modified Brittaney (06/12/2025 2:32 PM EST) Erythrocyte Sedimentation Rate 113(H) 0 - 20 MM/HR [facility] Comment:Patients with polycy themia and many hemoglobin abnormalitiesmay have depressed sed rates whereas patients with anemiamay have elevated sed rates. Blood Venous blood specimen / Unknown 06/12/2025 2:32 PM EST 06/12/2025 6:10 PM EST us Walter Aiken MD LAB BLOOD ORDERABLES Final Result Performing Organization Address [facility]/ZIP Co de Phone Number [facility] [address] [place] [phone] * Vitamin B12/Folate, Serum Panel (06/12/2025 2:32 PM EST) Vitamin B12 384 200 - 900 pg/mL [facility] Comment:NORMAL 200-900 PG/ML INDETERMINATE 160-199 PG/ML DEFICIENT < 160 PG/ML Folate 10.1 > or = 4.0 ng/mL [facility] Comment:Reference Values:> o r = 4.0 ng/mL< 4.0 ng/mL suggests folate deficiency Methotrexate, aminopterin and folinic acid(leucovorin) are chemotherapeutic agents whose molecularstructures are similar to folate; therefore, the Architectfolate assay cannot be used for patients using these drugs. Blood Venous blood specimen / Unknown 06/12/2025 2:32 PM EST 06/12/2025 6:10 PM EST us Walter Aiken MD LAB BLOOD ORDERABLES Final Result Performing Organization Address City/[facility]/ZIP Co de Phone Number [facility] [address] [place] [phone] * (ABNORMAL) Basic Metabolic Panel (06/12/2025 2:32 PM EST) [facility] Sodium 138 135 - 145 mmol/L [facility] Potassium 4.6 3.3 - 5.1 mmol/L [facility] Chloride 107 96 - 108 mmol/L [facility] Carbon Dioxide 22 22 - 29 mmol/L [facility] Anion Gap 14 12 - 20 [facility] Urea Nitrogen (BUN) 30(H) 9 - 16 mg/dL [facility] Creatinine, Serum 1.22 0.5 - 1.4 mg/dL [facility] Estimated Glomerular Filt Rate 45 [facility] Comment:Chronic Kidney Disea se: Estimated GFR < 60 mL/min/[id number] Kidney Disease: Estimated GFR < 15 mL/min/1.73m2 Glucose 241(H) 60 - 115 mg/dL [facility] Calcium 9.1 8.4 - 10.2 mg/dL [facility] Blood Venous blood specimen / Unknown 06/12/2025 2:32 PM EST 06/12/2025 6:10 PM EST us Walter Aiken MD LAB BLOOD ORDERABLES Final Result [facility] [address] [place] [phone] * (ABNORMAL) CBC auto differential (06/12/2025 2:32 PM EST) Pathologist [facility] White Blood Count 7.3 4.8 - 10.8 X10*3/uL [facility] Red Blood Count 3.84(L) 4.20 - 5.50 X10*6/uL [facility] Hemoglobin 11.0(L) 12.0 - 16.0 g/dl [facility] Hematocrit 34.4(L) 37.0 - 47.0 % [facility] Mean Corpuscular Volume 89.6 80.0 - 98.0 fL [facility] Mean Corpuscular Hemoglobin 28.6 27.0 - 33.0 pg [facility] Mean Corpuscular HGB Conc 32.0 31.0 - 35.0 g/dl [facility] Red Cell Distribution Width 14.3 11.0 - 16.0 % [facility] Platelet Count 305 160 - 400 X10*3/uL [facility] Mean Platelet Volume 11.8 9.4 - 12.3 fL [facility] Neutrophils Percent Auto 61.3 45 - 73 % [facility] Imm Gran Pct Auto 0.4 0.0 - 0.4 % [facility] Lymphocytes Percent Auto 28.8 20 - 40 % [facility] Monocytes Percent Auto 6.1 2 - 11 % [facility] Eosinophils Percent Auto 2.6 0 - 4 % [facility] Basophils Percent Auto 0.8 0 - 2 % [facility] NRBC Pct Auto 0.0 0.0 - 0.2 /100WBC [facility] Neutrophils Absolute Auto 4.5 2.0 - 8.3 x10*3/uL [facility] Imm Gran Abs Auto 0.03 0.00 - 0.03 X10*3/uL [facility] Lymphocytes Absolute Auto 2.1 1.2 - 4.9 X10*3/uL [facility] Monocytes Absolute Auto 0.5 0.1 - 1.2 X10*3/uL [facility] Eosinophils Absolute Auto 0.2 0.0 - 0.4 X10*3/uL [facility] Basophils Absolute Auto 0.1 0.0 - 0.2 X10*3/uL [facility] NRBC Abs Auto 0.000 0.0 - 0.012 X10*3/uL [facility] Blood Venous blood specimen / Unknown 06/12/2025 2:32 PM EST 06/12/2025 6:10 PM EST us Walter Aiken MD LAB BLOOD ORDERABLES Final Result [facility] [address] [place] [phone] documented in this encounter Visit Diagnoses Diagnosis Other constipation- Primary Rectal bleed Hemorrhage of rectum and anus Primary insomnia Persistent disorder of initiating or maintaining sleep Pain in other joint Uncontrolled type 2 diabetes mellitus with hyperglycemia (HCC) Chronic pain syndrome Other insomnia Tobacco dependence Tobacco use disorder documented in this encounter Additional Health Concerns Active Problems Noted Date Diagnosed Date Help patients manage their type 2 diabetes 06/07 Weekly blood pressure task 06/07/2025 Help patients manage their type 2 diabetes 06/07 Patient has chronic kidney disease 06/07/2025 Weekly blood pressure task 06/07/2025 Patient has chronic kidney disease 06/07/2025 Weekly blood pressure task 06/09/2025 Weekly blood pressure task 06/09/2025 Patient has chronic kidney disease 06/09/2025 Patient has chronic kidney disease 06/09/2025 Weekly blood pressure task 06/12/2025 Weekly blood pressure task 06/12/2025 Patient has chronic kidney disease 06/12/2025 Patient has chronic kidney disease 06/12/2025 Assessment Noted Time PHQ-9 Depression Total Score: 13 025 2:20 PM EST documented as of this encounter Care Teams Telepathist Relationship Specialty Start Date End Date Walter Aiken MD [address] [place] [phone] PCP - General Internal Medicine 04/05/14 [employer] 08/20/22 documented as of this encounter
[2025-06-12 18:14] LABS: MANUAL DIFF FLAG NO
[2025-06-12 18:41] LABS: Hematocrit 34.4 % (37.0-47.0); Hemoglobin 11.0 g/dl (12.0-16.0); Imm Gran Abs Auto 0.03 X10*3/uL (0.00-0.03); Imm Gran Pct Auto 0.4 % (0.0-0.4); Lymphocytes Absolute Auto 2.1 X10*3/uL (1.2-4.9); Mean Corpuscular HGB Conc 32.0 g/dl (31.0-35.0); Mean Corpuscular Hemoglobin 28.6 pg (27.0-33.0); Mean Corpuscular Volume 89.6 fL (80.0-98.0); NRBC Abs Auto 0.000 X10*3/uL (0.0-0.012); NRBC Pct Auto 0.0 /100WBC (0.0-0.2); Platelet Count 305 X10*3/uL (160-400); Red Blood Count 3.84 X10*6/uL (4.20-5.50); White Blood Count 7.3 X10*3/uL (4.8-10.8)
[2025-06-12 18:57] LABS: Anion Gap 14 (12-20); Blood Urea Nitrogen 30 mg/dL (9-16); Calcium 9.1 mg/dL (8.4-10.2); Carbon Dioxide 22 mmol/L (22-29); Chloride 107 mmol/L (96-108); Estimated Glomerular Filt Rate 45; Potassium 4.6 mmol/L (3.3-5.1); Sodium 138 mmol/L (135-145)
[2025-06-12 18:59] LABS: Appearance Urine Clear; Glucose Urine UA 500 mg/dL (Negative); PH 5.5 (5.0-9.0); Specific Gravity - Urine 1.025 (1.005-1.025); UMIC TRIGGER UA YES
[2025-06-12 19:19] LABS: Folate 10.1 ng/mL (> or = 4.0); Vitamin B12 384 pg/mL (200-900)
[2025-06-12 19:21] LABS: Protein/Creatinine Ratio, Ur 3.37 (<0.2); Total Protein Urine Random 547 mg/dL (<12)
[2025-06-12 19:46] LABS: Erythrocyte Sedimentation Rate 113 MM/HR (0-20)
--- OUTSIDE RECORDS SUMMARY | 2025-06-12 23:34 | XMS_ITS | Encounter Summary ---
Author Organization [employer] Address [address] [place] [address] 7 [place] [address] Care Team Providers Care Grant Manager Name Role Phone Walter Aiken MD Primary Care Provider [phone] Reason for Referral * Imaging (Routine) - Closed Specialty Diagnoses / Procedures Referred By Myra aguilera Referred To Contact Radiology Diagnoses Chronic tension-type headache, not intractable Procedures CT Head w/o Contrast Walter Aiken MD [address] [facility] [place] [address] Phone: tel: fax: [address] [address] Phone: tel: fax: Referral ID Status Reason Start Date Expiration Date Visits Re quested Visits Authorized [id number] Closed 07/28/2024 07/28/2025 1 1 * Consultation (Routine) - Canceled Specialty Diagnoses / Procedures Referred By Myra aguilera Referred To Contact Pharmacy Diagnoses Uncontrolled diabetes mellitus of other type with hypoglycemia, unspecified hypoglycemia coma status (HCC) Walter Aiken MD [address] [place] [address] Phone: tel: fax: Referral ID Status Reason Start Date Expiration Date V isits Requested Visits Authorized [id number] Canceled Consult and Treat 07/27/2024 07/27/2025 6 6 Encounter Details Date Type Department Care Team (Late st Contact Info) Description 07/27/2024 Orders Only [facility] CHC MED & PEDS [address] [place] [address] Walter Aiken MD [address] [place] [address] Controlled type 2 diabetes mellitus with hyperglycemia, with long-term current use of insulin ([facility]) (Primary Dx); Uncontrolled diabetes mellitus of other type with hypoglycemia, unspecified hypoglycemia coma status ([facility]); Chronic tension-type headache, not intractable Social [...] the past 12 months, has t he [employer], gas, oil or water [employer] threatened to shut off services in your [...] headache documented in this encounter Care Teams Grant Manager Relationship Specialty Start Date End Date Walter Aiken MD [address] [place] [address] PCP - General Internal Medicine 04/05/14 Jenn [employer] 08/20/22 documented as of this encounter
--- OUTSIDE RECORDS SUMMARY | 2025-06-12 23:34 | XMS_ITS | Encounter Summary ---
Author Organization [employer] Address 75 [facility] 7t [place] [address] Care Team Providers Care Injection Operator Name Role Phone Walter Aiken MD Primary Care Provider [phone] Reason for Visit * Reason Onset Date Comments Med Refill 11/09/2023 Encounter Details Date Type Department Care Team (Late st Contact Info) Description 11/09/[address] [facility] MEDICINE [address] [place] [address] Walter Aiken MD 505 [facility] [place] [address] Med Refill Social History Tobacco Use Types [...] MG disintegrating tablet To be sent to: [id number] - [place], [place] - [address] [place] [address] AT [facility] documented in this encounter Plan of Treatment Not on file documented as of this encounter Visit Diagnoses Not on filedocumented in this encounter Care Teams Injection Operator Relationship Specialty Start Date End Date Walter Aiken MD [address] [place] [address] PCP - General Internal Medicine 04/05/14 [employer] 08/20/22 documented as of this encounter
--- OUTSIDE RECORDS SUMMARY | 2025-06-12 23:35 | XMS_ITS | Encounter Summary ---
Author Organization [employer] Address 75 [facility] 7 [place] [address] Care Team Providers Care Business Continuity Manager Name Role Phone Walter Aiken MD Primary Care Provider [phone] Reason for Visit * Reason Onset Date Comments HDF 08/20/23 08/20/2023 Encounter Details Date Type Department Care Team ([facility] st Contact Info) Description 08/20/2023 Telephone [facility] MEDICINE [address] [place] [address] Walter Aiken MD 505 [facility] [place] [address] HDF 08/20/23 Social History Tobacco Use Types [...] that number was disconnected. Routing back to [facility] nurses to try next week. Tc from pt requesting to reschedule today's HDF 08/20. Pt stated PT-1 did not pick them up. Please contact pt at [phone]. * Telephone Encounter - Arvind Hines - 08/20/2023 2:57 PM EST Tc from pt requesting to reschedule today's HDF 08/20. Pt stated PT-1 did not pick them up. Please contact pt at [phone]. documented in this encounter Plan of Treatment Not on file documented as of this encounter Visit Diagnoses Not on filedocumented in this encounter Care Teams Business Continuity Manager Relationship Specialty Start Date End Date Walter Aiken MD [address] [place] [address] PCP - General Internal Medicine 04/05/14 [email or web address] 08/20/22 documented as of this encounter
--- OUTSIDE RECORDS SUMMARY | 2025-06-12 23:35 | XMS_ITS | Encounter Summary ---
Author Organization [employer] Address [address] [place] [address] 7 [place] [address] Care Team Providers Care Field Marketing Team Leader Name Role Phone Walter Aiken MD Primary Care Provider [phone] Reason for Referral * PFT (Routine) - Closed Specialty Diagnoses / Procedures Referred By Contgómez t Referred To Contact Diagnoses SOB (shortness of breath) Procedures Pulmonary Function Test Walter Aiken MD 505 [place] [address] Phone: tel: fax: [facility] Referral ID Status Reason Start Date Expiration Date Visits Re quested Visits Authorized [id number] Closed 02/05/2024 02/04/2025 1 1 Encounter Details Date Type Department Care Team ([facility] st Contact Info) Description 02/05/2024 Orders Only [facility] CHC MED & PEDS 505 [place] [address] Walter Aiken MD 505 [place] [address] SOB (shortness of breath) (Primary Dx) Social [...] breath documented in this encounter Care Teams Field Marketing Team Leader Relationship Specialty Start Date End Date Walter Aiken MD [address] [place] [address] PCP - General Internal Medicine 04/05/14 [employer] 08/20/22 documented as of this encounter
--- OUTSIDE RECORDS SUMMARY | 2025-06-12 23:35 | XMS_ITS | Encounter Summary ---
Author Organization [employer] Address 75 [facility] 7 [place] [address] Care Team Providers Care Broomcorn Seeder Name Role Phone Walter Aiken MD Primary Care Provider [phone] Reason for Visit * Reason Onset Date Comments PT1 03/11/2023 Encounter Details Date Type Department Care Team ([facility] st Contact Info) Description 03/11/2023 Telephone [facility] CHC MED & PEDS 505 [place] [address] Walter Aiken MD 505 [place] [address] PT1 Social History Tobacco Use Types Packs/Day [...] Date: 03/17/23 Time: 12 pm Visits: Address: [address] [place] [address] Facility: [facility] Wheel Chair: n/a Software Application Tester Needed: no PT1 Date: 03/18/23 Time: 10:30 am Visits: Address: [address] [place] [address] Facility: Gastroenterology Wheel Chair: n/a Software Application Tester Needed: no PT1 Date: 03/19/23 Time: 10:30 am Visits: Address: [address] [facility] [place] [address] Facility: Orthopedic Wheel Chair: n/a Software Application Tester Needed: no documented in this encounter Plan of Treatment Not on file documented as of this encounter Visit Diagnoses Not on filedocumented in this encounter Care Teams Broomcorn Seeder Relationship Specialty Start Date End Date Walter Aiken MD [address] [place] [address] PCP - General Internal Medicine 04/05/14 [employer] 08/20/22 documented as of this encounter
--- OUTSIDE RECORDS SUMMARY | 2025-06-12 23:35 | XMS_ITS | Encounter Summary ---
Author Organization [employer] Address 75 [facility] 7 [place] [address] Care Team Providers Care Clutch Inspector Name Role Phone Walter Aiken MD Primary Care Provider [phone] Reason for Visit * Reason Onset Date Comments PT1 06/05/2022 Encounter Details Date Type Department Care Team ([facility] Contact Info) Description 06/05/2022 Telephone [facility] CHC MED & PEDS 505 [place] [address] Walter Aiken MD 505 [place] [address] PT1 Social History Tobacco Use Types Packs/Day [...] TC from patient requesting a PT1 505 [facility] [address] Aiken 06/10/22 at 1:30pm Net Making Supervisor: No Wheelchair: No documented in this encounter Plan of Treatment Not on file documented as of this encounter Visit Diagnoses Not on filedocumented in this encounter Care Teams Clutch Inspector Relationship Specialty Start Date End Date Walter Aiken MD [address] [place] [address] PCP - General Internal Medicine 04/05/14 [facility] [employer] 08/20/22 documented as of this encounter
--- OUTSIDE RECORDS SUMMARY | 2025-06-12 23:35 | XMS_ITS | Encounter Summary ---
Author Organization [employer] Address 75 [facility] 7 [place] [address] Care Team Providers Care Local Bulk Driver Name Role Phone Walter Aiken MD Primary Care Provider [phone] Reason for Visit * Reason Onset Date Comments PT 1 04/24/2023 Encounter Details Date Type Department Care Team (Late st Contact Info) Description 04/24/2023 Telephone [facility] MEDICINE 230 [place], [place] [id number] Walter Aiken MD 505 [facility] [place] [address] PT 1 Social History Tobacco Use Types [...] PT1 Date: N/A Time: N/A Visits: Dental Address:[address] [address] Facility: (name, specialty or name of doctor) Wheel Chair: no Manual Control Auger Press Operator Needed: no documented in this encounter Plan of Treatment Not on file documented as of this encounter Visit Diagnoses Not on filedocumented in this encounter Care Teams Local Bulk Driver Relationship Specialty Start Date End Date Walter Aiken MD [address] [place] [address] PCP - General Internal Medicine 04/05/14 [employer] 08/20/22 documented as of this encounter
--- OUTSIDE RECORDS SUMMARY | 2025-06-12 23:35 | XMS_ITS | Encounter Summary ---
Author Organization [employer] Address 75 [facility] 7t [place] [address] Care Team Providers Care Nematologist Name Role Phone Walter Aiken MD Primary Care Provider [phone] Encounter Details Date Type Department Care Team ([facility] st Contact Info) Description 04/10/2025 Orders Only [facility] CHC MED & PEDS 505 [place] [address] Walter Aiken MD 505 [place] [address] Diabetes type 2, controlled (HCC) (Primary Dx) Social History Tobacco Use Types [...] as of this encounter Visit Diagnoses Diagnosis Diabetes type 2, controlled (HCC)- Primary Type II or unspecified type diabetes mellitus without mention of complication, not stated as uncontrolled documented in this encounter Additional Health Concerns Assessment Noted Time PHQ-9 Depression Total Score: 13 025 2:20 PM EST documented as of this encounter Care Teams Nematologist Relationship Specialty Start Date End Date Walter Aiken MD [address] [place] [address] PCP - General Internal Medicine 04/05/14 [employer] 08/20/22 documented as of this encounter
--- OUTSIDE RECORDS SUMMARY | 2025-06-12 23:35 | XMS_ITS | Encounter Summary ---
Author Organization [facility] Address [address] [facility] [address] [place] [address] Phone Care Team Providers Care Exterminator Helper Termite Name Role Phone Sharif Khalil MD Primary Care Provider [phone] Encounter Details Date Type Department Care Team (Late st Contact Info) Description 05/03/2018 Ancillary Orders Virtual Department 30 [place] [address] Sharif Khalil MD [address] [facility] [address] [place] [address] Pulmonary emphysema, unspecified emphysema type Social History [...] type documented in this encounter Care Teams Exterminator Helper Termite Relationship Specialty Start Date End Date Sharif Khalil MD PCP - General Family Medicine 02/25/18 documented as of this encounter Additional Source Comments The information contained in this document represents components of the legal health record. It is not the complete legal health record.[facility]
--- OUTSIDE RECORDS SUMMARY | 2025-06-12 23:35 | XMS_ITS | Encounter Summary ---
Author Organization [employer] Address [address] [facility] [address] 7t [place] [address] Care Team Providers Care Timber Sizer Operator Name Role Phone Walter Aiken MD Primary Care Provider [phone] Encounter Details Date Type Department Care Team (Late st Contact Info) Description 06/09/2025 Telephone [facility] 230 [place] [address] Anamika Charlton, RN [address] [place] [address] Social History Tobacco Use Types Packs/Day Years [...] t he electric, gas, oil or water [employer] threatened to shut off services in your [...] encounter Miscellaneous Notes * Telephone Encounter - Anamika Charlton RN - 06/09/2025 1:18 PM EST Pt presented to the front end loader operator for triage, spoke to pt with daughter. Pt states intermittent rectalbleeding for a couple of weeks. Pt states some blood on the paper only, and some rectal pain/discomfort. Pt has history of hemorrhoids and does not think it is hemorrhoids. Pt denies large amounts ofblood, severe abdominal or rectal pain, vomiting, weakness, dizziness, or other associated symptoms. Advised no available appointment to schedule today, and offered appointment Thursday with PCP. Daughter states is concerned because the bleeding seems to be constant and pt has to wear a pad. Again tried to find out how much blood and pt/daughter are vague. Advised then that the recommendation is for ER evaluation if emergent and non stop bleeding. Given appointment Thursday at 1:45 for exam. Pt understands and agrees with plan. Advised home care: rest, fluids, warm tub baths as needed, and call back if worsening or new concerns. Pt understands and agrees with plan. documented in this encounter Plan of Treatment Not on file documented as of this encounter Goals Goal [...] manage their type 2 diabetes Ghada Jacobson Patient has chronic kidney disease Care Plan Patient has chronic kidney disease No Ghada Meehan Weekly blood pressure task Care Plan Weekly blood pressure task No Ghada Meehan Patient has chronic kidney disease Care Plan Patient has chronic kidney disease No Ghada Meehan Weekly blood pressure task Care Plan Weekly blood pressure task No Anamika Cahrlton RN Weekly blood pressure task Care Plan Weekly blood pressure task No Anamika Charlton RN Patient has chronic kidney disease Care Plan Patient has chronic kidney disease No Anamika Charlton RN Patient has chronic kidney disease Care Plan Patient has chronic kidney disease No Anamika Charlton RN documented as of this encounter Visit Diagnoses Not on filedocumented in this encounter Additional Health Concerns Active [...] 06/09/2025 Patient has chronic kidney disease 06/09/2025 Assessment Noted Time PHQ-9 Depression Total Score: 13 025 2:20 PM EST documented as of this encounter Care Teams Timber Sizer Operator Relationship Specialty Start Date End Date Walter Aiken MD [address] [place] [address] PCP - General Internal Medicine 04/05/14 [employer] 08/20/22 documented as of this encounter
--- OUTSIDE RECORDS SUMMARY | 2025-06-12 23:35 | XMS_ITS | Encounter Summary ---
Author Organization [employer] Address 75 [facility] 7t [place] [address] Care Team Providers Care Diesel Power Shovel Operator Name Role Phone Walter Aiken MD Primary Care Provider [phone] Reason for Visit * Reason Onset Date Comments Created In Error 04/07/2024 Encounter Details Date Type Department Care Team ([facility] st Contact Info) Description 04/07/2024 Telephone [facility] MEDICINE 230 [place] [address] Walter Aiken MD 505 [facility] [place] [address] Created In Error Social History Tobacco Use [...] on filedocumented in this encounter Care Teams Diesel Power Shovel Operator Relationship Specialty Start Date End Date Walter Aiken MD [address] [place] [address] PCP - General Internal Medicine 04/05/14 [employer] 08/20/22 documented as of this encounter
--- OUTSIDE RECORDS SUMMARY | 2025-06-12 23:35 | XMS_ITS | Encounter Summary ---
Author Organization [facility] Address [address] [facility] [address] [place] [address] Phone Care Team Providers Care Sound Ranging Crewmember Name Role Phone Sharif Khalil MD Primary Care Provider [phone] Encounter Details Date Type Department Care Team (Late st Contact Info) Description 04/05/2018 Transcribe Orders [facility] Specimen Processing 30 [place] [address] Sharif Khalil MD 38 [facility], [address] [place] [address] [email or web address] History of left shoulder fracture (Primary Dx) [...] EDT) SODIUM 135 133 - 146 mmol/L [facility] POTASSIUM 4.6 3.3 - 5.1 mmol/L [facility] CHLORIDE 93(L) 96 - 108 mmol/L [facility] CO2 20(L) 21 - 35 mmol/L [facility] BUN 20(H) 6 - 19 mg/dL [facility] CREATININE 0.90 0.5 - 1.5 mg/dL [facility] GLUCOSE 271(H) 70 - 99 mg/dL [facility] ALBUMIN 4.3 3.9 - 4.8 g/dL [facility] TOTAL PROTEIN 7.4 6.5 - 8.0 g/dL [facility] CALCIUM 10.4(H) 8.4 - 10.3 mg/dL [facility] ALKALINE PHOSPHATASE 124(H) 39 - 117 U/L [facility] TOTAL BILIRUBIN 0.2 0.0 - 1.2 mg/dL [facility] AST 13 0 - 37 U/L [facility] ALT 18 0 - 40 U/L [facility] GLOBULIN 3.1 1 - 4.8 g/dL [facility] EGFR 74 >59 mL/min/1.7 3m2 [facility] Comment:If patient is black, multiply result by 1.159. Estimated glomerular filtration rate calculated using the CKD-EPI equation. ANION GAP 27(H) 10 - 20 mmol/L [facility] Blood 04/05/2018 1:55 PM EDT 04/05/2018 2:53 PM EDT us Sharif Khalil MD LAB BLOOD BKR ORDERABLES Final R esult Performing Organization Address City/State/[facility] Co de Phone Number [address] [address] * (ABNORMAL) CBC (04/05/2018 1:55 PM EDT) WBC 9.32 3.40 - 11.20 K/uL [facility] RBC 3.80 3.80 - 4.80 M/uL [facility] HGB 11.3(L) 12.0 - 15.0 g/dL [facility] HCT 34.3(L) 36.0 - 46.0 % [facility] PLT 224 130 - 400 K/uL [facility] MCV 90.3 79.0 - 98.0 fL [facility] MCH 29.7 27.0 - 34.8 pg [facility] MCHC 32.9 31.5 - 36.0 g/dL [facility] RDW 13.5 10.8 - 14.6 % [facility] MPV 11.6 9.4 - 12.4 [facility] NRBC 0.00 /100 WBCs [facility] ABSOLUTE NRBC 0.00 K/uL [facility] Blood 04/05/2018 1:55 PM EDT 04/05/2018 2:53 PM EDT us Sharif Khalil MD LAB BLOOD BKR ORDERABLES Final R esult [facility] [address] [place] [address] documented in this encounter Visit Diagnoses Diagnosis History of left shoulder fracture- Primary documented in this encounter Care Teams Sound Ranging Crewmember Relationship Specialty Start Date End Date Sharif Khalil MD [email or web address] PCP - General Family Medicine 02/25/18 documented as of this encounter Additional Source Comments The information contained in this document represents components of the legal health record. It is not the complete legal health record.[facility]
--- OUTSIDE RECORDS SUMMARY | 2025-06-12 23:35 | XMS_ITS | Data Portability ---
Author Organization [facility], Main Office Address [address] [address] [address] [place] [address] Care Team Providers Care Residential Program Manager Name Role Phone [facility] OTHER Assessment Encounter Date [...] By Organization Details Last Modified Time 05/21/2018 [id number] Eval patient and agree with A&P CA Not available 05/21/2018 11:28:37 Reason for Referral None Reported. 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 504154085 Active 2017 [facility] 8 13:42:25 Diabetes mellitus 33137730 Active 2017 [facility] 8 13:42:31 Paraseptal emphysema 44207625 Active 2017 [facility] 8 13:42:46 Closed fracture of scapula 82498409 Active 2017 [facility] 8 13:43:05 Closed fracture of left ankle 0070807588930 9108 Active 2017 [facility] 8 13:43:15 Gastroesoph ageal reflux disease without esophagitis 920716338 Active 2017 [facility] 8 13:46:45 Essential hypertensio n 66562437 Active 2017 Huong Quinonez MD [address] [place] [address], [place], [address] [place] [address] [employer] [facility] 8 13:55:12 Problem Notes None recorded. Medical Equipment None Reported. Allergies No known drug allergies Vitals Date Recorded Systolic And Diastolic Provider Name and Address Organization Details Last Updated DateTime 04/22/2018 136/75 mm[Hg] Naty Izquierdo [facility] 04/22/2018 11:49:33 Date Recorded Systolic And Diastolic Provider Name and Address Organization Details Last Updated DateTime 04/30/2018 138/75 mm[Hg] Naty Izquierdo [facility] [employer] [facility] 04/30/2018 14:06:28 Date Recorded Systolic And Diastolic Provider Name and Address Organization Details Last Updated DateTime 05/12/2018 144/78 mm[Hg] Naty Izquierdo [facility] [employer] [facility] 05/12/2018 12:11:27 Date Recorded Systolic And Diastolic Provider Name and Address Organization Details Last Updated DateTime 05/21/2018 125/86 mm[Hg] Dora Hernandez [address] [facility], [address], [place], [address], [facility] 05/21/2018 10:57:14 Date Recorded Systolic And Diastolic Provider Name and Address Organization Details Last Updated DateTime 05/25/2018 134/74 mm[Hg] Naty Izquierdo [facility] 05/25/2018 16:22:50 Social History Question Answer Notes LastModified by Organizat ion Details LastModified Time Tobacco Smoking Status Current Every Day Smoker Not Available [employer] 05/01/2020 03:13:20 Do You Have An Advance Directive? Yes Full Code [id number] Information not available 05/01/2020 How Much Tobacco Do You Chew? None [id number] Information not available 05/01/2020 Do You Have A Medical Power Of Transit Mixer Driver? No [id number] Information not available 05/01/2020 What Was The Date Of Your Most Recent Tobacco Screening? 05/25/2018 [id number] Information not available 05/01/2020 Sex: Unknown Functional Status Question Answer Note LastModified by Organization D etails LastModified Time What is your level of alcohol consumption? None [id number] Information not available 05/01/2020 Mental Status None recorded. Family History Nothing Reported. Medical History No medical history recorded. Gynecological HistoryNo gynecological history recorded. Obstetrics History GPAL:G 0 P 0 0 0 0 Past Encounters Encounter ID Performer Location Encounter Start Date Encounter Closed Date Diagnosis/Indication Diagnosis SNOMED-CT Code Diagnosis ICD10 Code Diagnosis IMO Codes Diagnosis Note [id number] Naty Izquierdo [facility] on [address] [place] [address] 02/25/2018 13:22:35 03/14/2018 17:16:34 Closed fracture of left ankle 5983416208 1194410 S82.892A Follow ortho recsRemain s NWBF/u with ortho as scheduledD VT prophylaxi s with heparinPT/ OT eval and treatRepea t x-ray on 03/03 Closed fra cture of scapula 70397737 S42.135S Follow ortho recsSling in pacePT/OT eval and treat Toxic encephalopathy 283 70557 G92 Olanzapine 5 mg BID-starte d in hospitalWi ll taper as ablePsych eval requested Acute inju ry of kidney 9832716949 7705568 N17.8 Repeat and monitor renal function Sepsis 58287042 A41.89 Completed antibiotic s in hospitalMo nitor Paraseptal emphysema [address] with contrast in 4-6 weeks Diabetes mellitus 904329 09 E11.9 Lantus 27 units QHSSS insulinMon itor accuchecks 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 Essential hypertension 75081032 I10 Norvasc 5 mg dailyMonit or bp and labs [id number] [place] [facility] on [address] [place] [id number] 03/01/2018 13:15:41 03/14/2018 17:33:36 Gastroesophageal reflux disease without esophagitis 844652009 K21.9 Start omeprazole 20 mg BIDMonitor sxs Diabetes mellitus 758131 09 E11.9 Lantus 27 units QHSAdd metformin 1000 mg BIDSS insulinRep eat renal function with addition of metforminM onitor accuchecks [id number] Huong Quinonez MD [facility] on [address] [place] [id number] 03/02/2018 11:03:48 03/14/2018 17:57:04 Closed fracture of left ankle 8756481231 3712761 S82.892D Details of fx not in records. Follow ortho recs for NWB. and DVT prophylaxi s with heparin. Needs PT/OT for function. F/U with ortho on 03/10. Having repeat x-ray on 03/03. Getting suboxone and APAP for pain. Closed fra cture of scapula 47741690 S42.135S Continue sling per ortho. PT/OT for function as able. Says the pain in shoulder is the worst. Will start using lidocaine patch to that area and schedule ibuprofen 60 mg q 6 hrs with food. Toxic encephalopathy 283 93364 G92 Olanzapine 5 mg BID was started in hospital can raise BS and cause dyspepsia. Both of which are bothering pt. Will go to 2.5 mg BID for 3 days then D/C if stable.Psy ch eval requested Acute inju ry of kidney 4050847189 4745560 N17.8 Back to nl. But need to monitor with restarting metformin. Sepsis 40879136 A41.89 Completed antibiotic s in hospitalMo nitor Paraseptal emphysema 318 [address] with contrast in 4-6 weeks Diabetes mellitus 310767 09 E11.9 Was on Lantus 27 units qhs and SSI in hosp. Metformin 1000 mg BID restarted yest. Will restart glyburide today she says she was on 4 mg qd. 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 Omeprazole 20 mg BID restarted yesterday. Monitor as olanzapine tapered.Mo nitor sxs [id number] SEBAST[facility] [facility] on [address] [place] [phone] 03/11/2018 13:37:04 03/15/2018 10:25:42 Closed fracture of left ankle 4612063096 0151059 S82.892A Follow ortho recsRemain s NWBF/u with ortho as scheduledD VT prophylaxi s with heparincon t. 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 888678742 F19.10 Maintained on suboxone Essential hypertension 17625175 I10 Norvasc 5 mg dailyBP stable Insomnia 019033309 F51.0 9 Add melatonin 5 mg QHSMonitor for effect Tension-type headache 39 0325508 G44.219 Add excedrin PRNEncoura ge fluids-pat ient [place] to [place] intakeMon[place] [id number] SEBASTIAN [place] [facility] on [address] [place] [id number] 03/22/2018 15:10:04 03/25/2018 15:12:45 Anxiety 52358633 F41.1 Add Hydroxyzin e 50 mg Q6h prn anxietyMon itor for effect Closed fra cture of left ankle 0202123351 5910831 S82.892A Follow ortho recsRemain s NWBF/u with ortho as scheduledD VT prophylax[place]con [place]. [place]/OT [id number] [facility] [facility] on [address] [place] [id number] 03/30/2018 11:59:08 04/02/2018 10:11:19 Anxiety 42188332 F41.1 Hydroxyzin e 50 mg Q6h prn anxietyMon itor for effect Closed fra cture of left ankle 5063334281 2658088 S82.892A Follow ortho recsRemain s NWBF/u with ortho as scheduledD VT prophylaxi s with heparincon t. 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 PT/OT [id number] SEBAST[facility] Dav[facility] on [address] [place] [id number] 04/30/2018 13:59:13 05/04/2018 11:47:32 Closed fracture of left ankle 8784721135 9072385 S82.892A Follow ortho recsNow partial WB to LLEF/u with ortho as scheduled cont. 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 PT/OT to maximize function. Monitor. Diabetes mellitus 361645 09 E11.9 Blood glucose at goal, mostly <200Cont. Glyburide 10 mg dailyMetfo rmin 1000 mg BIDLantus 45 units QHS SS insulinMon itor accuchecks . 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 DBP 86. Continue to monitor trends and titrate med regimen prn. monitor Closed fra cture of scapula 78670621 S42.102D PT/OT to increase ROM & maximize function.l idocaine patchibupr ofen 600 mg q 6 hrs & q 8 hrs prn with food. Monitor for pain control. Monitor [place]. [id number] SEBASTIAN Davenport [facility] on [address] [place] [phone] 3 05/25/2018 16:06:21 06/01/2018 08:39:37 Closed fracture of left ankle 5278875835 5630072 S82.892A Follow ortho recsWBAT to LLE in fracture bootF/u with ortho in 6 weeks (last seen 05/19) Closed fra cture of scapula 95404100 S42.102D WBAT to left upper extremityA ppears healed Diabetes mellitus 386841 09 E11.9 Blood glucose at goal, mostly <200Cont. 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 914408868 F19.10 Maintained on suboxoneFo llows with suboxone clinic Essential hypertension 83585088 I10 Norvasc 5 mg dailyBP stableF/u with PCP Gastroesop hageal reflux disease without esophagitis 290209496 K21.9 Omeprazole 20 mg BID Paraseptal emphysema [address] with contrastF/ u with PCP Shoulder joint pain 2679 27888 M25.511 X-ray negativeHa s MRI scheduled by ortho Health Concerns Section Related Observation LastModified by Organization Detai ls LastModified Time None Recorded Concern Status LastModified by Organization Details LastModified Time None Recorded Advance Directives Directive Y: Full code Payers Insurance Date Sequence Insurance Name Policy Number Policy Hawkins Covered Member ID Hawkins Member ID Guarantor Name 05/12/2018 1 [place]: [employer] Blank Rosas [id number] Blank Rosas 05/12/2018 2 MEDICAID-[place]: [facility] Blank Rosas [id number] Blank Rosas Notes Date Note Type Note Provider Name and Address Organization Details Recorded Time 04/22/2018 text/html 52 yo female seen for acute rounding visit. Patient here for rehab after hospitalization with left scapular fracture and left ankle fracture secondary to fall. Patient now partial weight bearing to left leg. Patient reports pain most severe in right shoulder-is being worked up for this by [id number] negative, has MRI scheduled. Naty downey [employer] 04/22/2018 12:15:27 04/30/2018 text/html 52 yo female seen for acute rounding visit. Patient here for [...] diet-recommend diet soda or water. Naty downey [employer] 04/30/2018 14:13:37 05/12/2018 text/html 52 yo female seen for acute rounding visit. Patient here for rehab after hospitalization with left scapular fracture and left ankle fracture secondary to fall. Patient remains partial weight bearing to left leg. Has f/u with ortho scheduled next week to reassess wt bearing status. Naty downey [employer] 05/12/2018 12:12:41 05/21/2018 text/html 52 yo female seen for acute rounding visit. Patient here for rehab after hospitalization with left scapular fracture and left ankle fracture secondary to fall. Pt had f/u with ortho 2 days ago with rec's provided for WBAT to left foot and cont with PT OT to improve ROM and maximize function. Naty downey [employer] 05/21/2018 11:29:01 05/25/2018 text/html 52 yo female seen in preparation for discharge home tomorrow. Patient [...] Patient reports pain well controlled. Naty downey [employer] 05/25/2018 16:39:37 OBGyn Episode No OBEpisode recorded.
--- OUTSIDE RECORDS SUMMARY | 2025-06-12 23:35 | XMS_ITS | Encounter Summary ---
Author Organization [employer] Address [address] [place] [address] Care Team Providers Care Clothing Trades Workers Name Role Phone Walter Aiken MD Primary Care Provider [phone] Reason for Visit * Reason Onset Date Comments Pt1 06/19/2023 Encounter Details Date Type Department Care Team ([facility] st Contact Info) Description 06/19/2023 Telephone [facility] MED [facility] PEDS [address] [place] [address] Walter Aiken MD [address] [place] [address] Pt1 Social History Tobacco Use Types Packs/Day [...] 06/23/23 Time: 3:30 PM Visits: (N/A) Address: [address] [place] [address] Facility: ([facility], Dr. Aiken) Wheel Chair: (No) Property Officer Needed: No documented in this encounter Plan of Treatment Not on file documented as of this encounter Visit Diagnoses Not on filedocumented in this encounter Care Teams Clothing Trades Workers Relationship Specialty Start Date End Date Walter Aiken MD [address] [place] [address] PCP - General Internal Medicine 04/05/14 [employer] 08/20/22 documented as of this encounter
--- OUTSIDE RECORDS SUMMARY | 2025-06-12 23:35 | XMS_ITS | Encounter Summary ---
Author Organization [email or web address] Address [address] [place] [address] 7 [place] [address] Care Team Providers Care Office Workforce Planner Name Role Phone Walter Aiken MD Primary Care Provider [phone] Reason for Referral * Imaging (Routine) - Closed Specialty Diagnoses / Procedures Referred By Contac t Referred To Contact Radiology Diagnoses Chronic tension-type headache, not intractable Procedures CT Head w/o Contrast Walter Aiken MD [address] [place] [address] Phone: tel: fax: [address] [address] Phone: tel: fax: Referral ID Status Reason Start Date Expiration Date Visits Re quested Visits Authorized [id number] Closed 05/25/2024 05/25/2025 1 1 Encounter Details Date Type Department Care Team (Late st Contact Info) Description 05/25/2024 Orders Only [facility] MED & PEDS [address] [place], [place] [phone] Walter Aiken MD [address] [place] [address] [phone] Chronic tension-type headache, not intractable (Primary Dx) Social History Tobacco Use Types Packs/Day Years Used Date Smoking Tobacco: Every Day Cigarettes 0.3 7 Passive Smoke Exposure: Current Smokeless Tobacco: Never Housing Stability Answer Date Recorded What is your housing situation today? I have iain sing 08/11/[address] you li [...] headache documented in this encounter Care Teams Office Workforce Planner Relationship Specialty Start Date End Date Walter Aiken MD [address] [place] [address] PCP - General Internal Medicine 04/05/14 [employer] 08/20/22 documented as of this encounter
--- OUTSIDE RECORDS SUMMARY | 2025-06-12 23:35 | XMS_ITS | Encounter Summary ---
Author Organization [employer] Address [address] [facility] 7t [place] [address] Care Team Providers Care Klystrom Tube Tester Name Role Phone Walter Aiken MD Primary Care Provider [phone] Reason for Visit * Reason Onset Date Comments Nurse Triage 09/23/2023 Encounter Details Date Type Department Care Team (Late st Contact Info) Description 09/23/2023 Telephone [facility] [address] [place] [address] Walter Aiken MD [address] [facility] [place] [address] Nurse Triage Social History Tobacco Use Types [...] seen. Pt is advised to come to [facility] Pt reports will come tomorrow. Hours given 830am - 400pm for tomorrow . Pt is given instruction as to address of facility [address] [place] [address], once in front door go to right [...] on filedocumented in this encounter Care Teams Klystrom Tube Tester Relationship Specialty Start Date End Date Walter Aiken MD [address] [place] [address] PCP - General Internal Medicine 04/05/14 [employer] 08/20/22 documented as of this encounter
--- OUTSIDE RECORDS SUMMARY | 2025-06-12 23:35 | XMS_ITS | Encounter Summary ---
Author Organization [employer] Address 75 [facility] 7 [place] [address] Care Team Providers Care Cutter Apprentice Hand Name Role Phone Walter Aiken MD Primary Care Provider [phone] Reason for Visit * Reason Onset Date Comments Durable Medical Equipment 03/11/2023 Encounter Details Date Type Department Care Team ([facility] st Contact Info) Description 03/11/2023 Telephone [facility] CH[facility] MED & PEDS [address] [place] [address] Walter Aiken MD [address] [place] [address] Durable Medical Equipment Social History Tobacco Use [...] Guajardo LPN - 03/16/2023 12:28 PM EDT Test Evaluator called pt regarding PCP message below. No answer Vm to return call. Forward to Alla for scheduling pt to discuss DME need. [...] on filedocumented in this encounter Care Teams Cutter Apprentice Hand Relationship Specialty Start Date End Date Walter Aiken MD [address] [place] [address] PCP - General Internal Medicine 04/05/14 [employer] 08/20/22 documented as of this encounter
--- OUTSIDE RECORDS SUMMARY | 2025-06-12 23:35 | XMS_ITS | Encounter Summary ---
Author Organization [employer] Address 75 [facility] 7t [place] [address] Care Team Providers Care Rn Flight Name Role Phone Walter Aiken MD Primary Care Provider [phone] Reason for Visit * Reason Onset Date Comments Nurse Triage 06/07/2025 Encounter Details Date Type Department Care Team (Late st Contact Info) Description 06/07/2025 Telephone [facility] MEDICINE [address] [place] [address] Walter Aiken MD 505 [facility] [place] Bishop [address] Nurse Triage Social History Tobacco Use Types [...] encounter Miscellaneous Notes * Telephone Encounter - Ayde Valentine RN - 06/07/2025 3:39 PM EST TC placed to patient [phone] in regards to below message. Patient reports she would like to beseen for R lower neck pain and rectal spotting . Patient reports having some swelling in her lowerneck on the R side. Patient reports she has full ROM of neck, denies fevers or numbness in arms. Patient does endorse some pain radiates to her R arm. Patient has been taking motrin for pain control with good effect. Patient denies any injuries prior to pain onset. Patient also reports she has been spotting from her rectum for a long time'. Patient denies it is associated with constipation or BM's. Patient reports it does not happen constantly and reports it's just spotting not bleeding .Patient reports she is concerned due to her sister having colon cancer in the past. Patient is unwilling to see any provider who is not her PCP. RN offered appt's in [facility] tomorrow with alternative provider (PCP does not have any) however patient denied, RN offered WIC as well however patient also denied. Patient advised RN cannot scheduled sick on site appt >3 days and PCP does not have availability during this timeframe. Patient reports she will return call to [facility] tomorrow to inquire on cancellations. Patient to f/u PRN. Protocol Used: Neck Pain or Stiffness (Adult) Disposition for Call (Nurse Override): See in Office or Video Visit within 2 Weeks Override Reason: Caller refused suggested disposition Override Notes: Patient unwilling to accept appt with any other provider-only wants PCP who does not have availability. Protocol-Based Disposition: See in Office or Video Visit within 3 Days Video visit offer not recorded Positive Triage Questions: * Pain shoots (radiates) into arm or hand * Age > 50 and no prior history of similar neck pain * Neck pain or stiffness * All higher-acuity triage questions were negative. Care Advice Discussed: * Reassurance and Education - Neck Pain or Stiffness * Pain Medicines * Stretching Exercises * Reasons To Call Back - Severe pain lasts more than 2 hours after pain medicine - Pain lasts over 2 weeks - Numbness or weakness occurs in your arms or legs - You become worse * Telephone Encounter - Ghada Zoran - 06/07/2025 2:22 PM EST TC from pt stated is been having a lot of pressure on one side on the head. PCP Dr. Aiken documented in this encounter Plan of Treatment [...] Care Plan Patient has chronic kidney disease Ghada Jacobson documented as of this encounter Visit Diagnoses Not on filedocumented in this encounter Additional Health Concerns Active Problems Noted Date Diagnosed Date Help patients manage their type 2 diabetes 06/07 Weekly blood pressure task 06/07/2025 Help patients manage their type 2 diabetes 06/07 Patient has chronic kidney disease 06/07/2025 Weekly blood pressure task 06/07/2025 Patient has chronic kidney disease 06/07/2025 Assessment Noted Time PHQ-9 Depression Total Score: 13 025 2:20 PM EST documented as of this encounter Care Teams Rn Flight Relationship Specialty Start Date End Date Walter Aiken MD [address] [place] [address] PCP - General Internal Medicine 04/05/14 [employer] 08/20/22 documented as of this encounter
--- OUTSIDE RECORDS SUMMARY | 2025-06-12 23:35 | XMS_ITS | Encounter Summary ---
Author Organization [facility] Address [address] [facility] [address] [place] [address] Phone Care Team Providers Care Brewery Cellar Worker Name Role Phone Sharif Khalil MD Primary Care Provider [phone] Encounter Details Date Type Department Care Team (Late st Contact Info) Description 03/12/2018 Transcribe Orders [facility] Specimen Processing [address] [place] [address] Sharif Khalil MD [address] [facility], [address] [place] [address] [email or web address] Type 2 diabetes mellitus without complication, unspecified whether vermin exterminator insulin use (Primary Dx) Social History Tobacco [...] EDT) WBC 7.93 3.40 - 11.20 K/uL [facility] RBC 3.59(L) 3.80 - 4.80 M/uL [facility] HGB 10.9(L) 12.0 - 15.0 g/dL [facility] HCT 32.8(L) 36.0 - 46.0 % [facility] PLT 260 130 - 400 K/uL [facility] MCV 91.4 79.0 - 98.0 fL [facility] MCH 30.4 27.0 - 34.8 pg [facility] MCHC 33.2 31.5 - 36.0 g/dL [facility] RDW 13.6 10.8 - 14.6 % [facility] MPV 11.8 9.4 - 12.4 fl [facility] NRBC 0.00 /100 WBCs [facility] ABSOLUTE NRBC 0.00 K/uL [facility] DIFF METHOD Auto [facility] NEUTS 56.1 45.30 - 77.70 % [facility] LYMPHS 30.1 12.30 - 39.70 % [facility] MONOS 7.9 4.10 - 12.80 % [facility] EOS 3.5 0 - 7.2 % [facility] BASOS 0.8 0 - 2.80 % [facility] Granulocytes, immature (%) 1.6(H) 0.0 - 0.9 % [facility] ABSOLUTE NEUTS 4.44 1.40 - 7.70 K/uL [facility] ABSOLUTE LYMPHS 2.39 0.60 - 3.20 K/uL [facility] ABSOLUTE MONOS 0.63(H) 0.11 - 0.59 K/uL [facility] ABSOLUTE EOS 0.28 0.01 - 0.50 K/uL [facility] ABSOLUTE BASOS 0.06 0.00 - 0.08 K/uL [facility] Granulocytes, immature 0.13(H) 0.00 - 0.05 K/uL [facility] Blood 03/12/2018 7:00 AM EDT 03/12/2018 9:47 AM EDT us Sharif Khalil MD LAB BLOOD BKR ORDERABLES Final R esult [address] [address] * (ABNORMAL) Basic metabolic panel (03/12/2018 7:00 AM EDT) SODIUM 137 133 - 146 mmol/L [facility] CHLORIDE 96 96 - 108 mmol/L [facility] POTASSIUM 4.2 3.3 - 5.1 mmol/L [facility] CO2 24 21 - 35 mmol/L [facility] BUN 16 6 - 19 mg/dL [facility] CREATININE 0.70 0.5 - 1.5 mg/dL [facility] GLUCOSE 219(H) 70 - 99 mg/dL [facility] CALCIUM 10.0 8.4 - 10.3 mg/dL [facility] EGFR 100 >59 mL/min/1.7 3m2 [facility] Comment:If patient is black, multiply result by 1.159. Estimated glomerular filtration rate calculated using the CKD-EPI equation. ANION GAP 21(H) 10 - 20 mmol/L [facility] Blood 03/12/2018 7:00 AM EDT 03/12/2018 9:47 AM EDT us Sharif Khalil MD LAB BLOOD BKR ORDERABLES Final R esult [facility] [address] [place] [address] documented in this encounter Visit Diagnoses Diagnosis Type 2 diabetes mellitus without complication, unspecified whether vermin exterminator insulin use- Primary documented in this encounter Care Teams Brewery Cellar Worker Relationship Specialty Start Date End Date Sharif Khalil MD [email or web address] PCP - General Family Medicine 02/25/18 documented as of this encounter Additional Source Comments The information contained in this document represents components of the legal health record. It is not the complete legal health record.[facility]
--- OUTSIDE RECORDS SUMMARY | 2025-06-12 23:35 | XMS_ITS | Encounter Summary ---
Author Organization [employer] Address 75 [facility] 7t [place] [address] Care Team Providers Care Hotel Baggage Handler Name Role Phone Walter Aiken MD Primary Care Provider [phone] Reason for Visit * Reason Comments Med Refill Encounter Details Date Type Department Care Team ([facility] st Contact Info) Description 03/17/2024 Refill [facility] CHC MED & PEDS [address] [place] [address] Walter Aiken MD 505 [place] [address] Social History Tobacco Use Types Packs/Day Years [...] on filedocumented in this encounter Care Teams Hotel Baggage Handler Relationship Specialty Start Date End Date Walter Aiken MD [address] [place] [address] PCP - General Internal Medicine 04/05/14 [email or web address] 08/20/22 documented as of this encounter
--- OUTSIDE RECORDS SUMMARY | 2025-06-12 23:35 | XMS_ITS | Encounter Summary ---
Author Organization [employer] Address [address] [place] [id number] Care Team Providers Care Vegetable Inspector Name Role Phone Walter Aiken MD Primary Care Provider [phone] Reason for Visit * Reason Onset Date Comments PT1 06/05/2023 Encounter Details Date Type Department Care Team ([facility] st Contact Info) Description 06/05/2023 Telephone [facility] CHC MED & PEDS [address] [place] [address] Walter Aiken MD 505 [place] [address] PT1 Social History Tobacco Use Types Packs/Day [...] 06/11 Time: 12:20 PM Visits: n/a Address: [address] [place], [place] [address] [address] Facility: [facility] Wheel Chair: no Lab Specialist Needed: n/a Home address confirmed: [address] [place], [place] [address] documented in this encounter Plan of Treatment Not on file documented as of this encounter Visit Diagnoses Not on filedocumented in this encounter Care Teams Vegetable Inspector Relationship Specialty Start Date End Date Walter Aiken MD [address] [place] [address] [place]endez [address] PCP - General Internal Medicine 04/05/14 [employer] 08/20/22 documented as of this encounter
--- OUTSIDE RECORDS SUMMARY | 2025-06-12 23:35 | XMS_ITS | Encounter Summary ---
Author Organization [employer] Address 75 [facility] 7 [place] [address] Care Team Providers Care Information Assurance Engineer Name Role Phone Walter Aiken MD Primary Care Provider [phone] Reason for Visit * Reason Onset Date Comments Nurse Triage 09/16/2023 Encounter Details Date Type Department Care Team ([facility] st Contact Info) Description 09/16/2023 Telephone [facility] CHC MED & PEDS [address] [place] [address] Walter Aiken MD 505 [place] [address] Nurse Triage Social History Tobacco Use Types [...] day. 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 Pt reports a fan that was running all day? . Pt reportsthe foot had some swelling which has decreased since this happened 2 weeks ago. Pt is diabetic and no apt available in [facility] . Pt is advised to come to [facility] [place] today open till 800pm. Pt reports may [...] accepted this outcome Please contact pt @ [phone] documented in this encounter Plan of Treatment Not on file documented as of this encounter Visit Diagnoses Not on filedocumented in this encounter Care Teams Information Assurance Engineer Relationship Specialty Start Date End Date Walter Aiken MD [address] [place] [phone] PCP - General Internal Medicine 04/05/14 [employer] 08/20/22 documented as of this encounter
--- OUTSIDE RECORDS SUMMARY | 2025-06-12 23:35 | XMS_ITS | Encounter Summary ---
Author Organization [employer] Address 75 [facility] 7 [place] [address] Care Team Providers Care Dairy Clerk Name Role Phone Walter Aiken MD Primary Care Provider [phone] Reason for Visit * Reason Onset Date Comments Order 02/27/2025 Encounter Details Date Type Department Care Team ([facility] st Contact Info) Description 02/27/2025 Telephone [facility] MEDICINE [address] [place] [address] Walter Aiken MD 505 [facility] [place] Bishop [address] Order Social History Tobacco Use Types Packs/Day [...] RN - 02/28/2025 11:21 AM EDT TC ronda Palma. She is requesting an updated order for a diagnostic mammogram due to patient experiencing left breast pain. * Telephone Encounter - Arvind Hines - 02/27/2025 1:19 PM EDT Tc from [facility] calling in regards to Mammogram order stating they have the initial order but they're requesting an updated diagnostic order due to pt experiencing breast pain. If any questions contact [facility] at [phone]. . documented in this encounter Plan of Treatment Not on file documented as of this encounter Visit Diagnoses Not on filedocumented in this encounter Additional Health Concerns Assessment Noted Time PHQ-9 Depression Total Score: 13 09/06/ 025 2:20 PM EST documented as of this encounter Care Teams Dairy Clerk Relationship Specialty Start Date End Date Walter Aiken MD [address] [place] [address] PCP - General Internal Medicine 04/05/14 [employer] 08/20/22 documented as of this encounter
--- OUTSIDE RECORDS SUMMARY | 2025-06-12 23:35 | XMS_ITS | Encounter Summary ---
Author Organization [employer] Address 75 [facility] 7t [place] [address] Care Team Providers Care Farm Or Ranch Animal Caretaker Name Role Phone Walter Aiken MD Primary Care Provider [phone] Encounter Details Date Type Department Care Team ([facility] st Contact Info) Description 11/07/2024 Orders Only [facility] CHC MED & PEDS [address] [place] [address] Walter Aiken MD 505 [place] [address] Gastroesophageal reflux disease without esophagitis (Primary Dx) [...] documented as of this encounter Care Teams Farm Or Ranch Animal Caretaker Relationship Specialty Start Date End Date Walter Aiken MD [address] [place] [address] PCP - General Internal Medicine 04/05/14 [employer] 08/20/22 documented as of this encounter
--- OUTSIDE RECORDS SUMMARY | 2025-06-12 23:35 | XMS_ITS | Encounter Summary ---
Author Organization [employer] Address [address] [facility] 7 [place] [address] Care Team Providers Care Chief Cloth Finishing Range Operator Name Role Phone Walter Aiken MD Primary Care Provider [phone] Reason for Visit * Reason Onset Date Comments FYI 07/14/2023 Encounter Details Date Type Department Care Team (Late st Contact Info) Description 07/14/2023 Telephone [facility] MEDICINE [address] [place], [place] [phone] Walter Aiken MD 505 [facility] DEY[place] Mendez [address] FYI Social History Tobacco Use Types Packs/Day [...] on filedocumented in this encounter Care Teams Chief Cloth Finishing Range Operator Relationship Specialty Start Date End Date Walter Aiken MD [address] [place] [address] PCP - General Internal Medicine 04/05/14 [employer] 08/20/22 documented as of this encounter
--- OUTSIDE RECORDS SUMMARY | 2025-06-12 23:35 | XMS_ITS | Encounter Summary ---
Author Organization [employer] Address 75 [facility] 7t [place] [address] Care Team Providers Care Tunnel Heading Inspector Name Role Phone Walter Aiken MD Primary Care Provider [phone] Encounter Details Date Type Department Care Team ([facility] Contact Info) Description 06/23/2022 Telephone [facility] CHC MED & PEDS [address] [place] [address] Walter Aiken MD 505 [place] [address] Social History Tobacco Use Types Packs/Day Years [...] on filedocumented in this encounter Care Teams Tunnel Heading Inspector Relationship Specialty Start Date End Date Walter Aiken MD [address] [place] [address] PCP - General Internal Medicine 04/05/14 [employer] 08/20/22 documented as of this encounter
--- OUTSIDE RECORDS SUMMARY | 2025-06-12 23:35 | XMS_ITS | Encounter Summary ---
Author Organization [employer] Address 75 [facility] 7t [place] [address] Care Team Providers Care Director Of Dietary Name Role Phone Walter Aiken MD Primary Care Provider [phone] Encounter Details Date Type Department Care Team (Late st Contact Info) Description 06/12/2025 Orders Only GENERIC EXTERNAL DATA DEPARTMENT Provider, Generic External Data Social History Tobacco Use Types Packs/Day Years [...] their type 2 diabetes No Ghada Meehan Weekly blood pressure task [...] Procedure Name Priority Date/Time Associated Diagnosis Comments PROTEIN CREATININE RATIO, URINE Routine 06/12/2025 2:40 PM EST URINALYSIS, COMPLETE (INCLUDES MACRO AND MICRO) Routine 06/12/2025 2:40 PM EST documented in this encounter Results * (ABNORMAL) Urinalysis Complete (06/12/2025 2:40 PM EST) Color Urine Yellow [facility] Appearance Urine Clear [facility] PH 5.5 5.0 - 9.0 [facility] Glucose Urine UA 500(A) Negative mg/dL [facility] Urine Blood Trace(A) Negative [facility] Specific [place] - Urine 1.025 1.005 - 1.025 [facility] Urine Protein 300 (3+)(A) Neg-Trace mg/dL [facility] Urine Ketones Negative Negative mg/dL [facility] Nitrite Urine Negative Negative [facility] Leukocyte Esterase Urine Negative Negative [facility] RBC Urine 0-2 0 - 2 /HPF [facility] Urine WBC 0-5 0 - 5 /HPF [facility] Urine Squamous Epithelial Cell >20 0 - 2 /HPF [facility] Urine Bacteria 1+ None Seen [facility] Hyaline Casts, Urine 0-2 0 - 2 /LPF [facility] 06/12/2025 2:40 PM EST 06/12/2025 6:13 PM EST us Generic External Data Provider LAB URINE ORDERAB LES Final Result Performing Organization Address City/State/[facility] Co de Phone Number [facility] [address] [place] [phone] * (ABNORMAL) Protein Creatinine Ratio, Urine (06/12/2025 2:40 PM EST) Creatinine, Urine 162.33 mg/dL [facility] Protein, Total, Random Urine 547(H) <12 mg/dL [facility] Protein/Creati nine Ratio, Ur 3.37(H) <0.2 [facility] Comment:The spot urine prote in:creatinine ratio may increase to 0.3during normal . 06/12/2025 2:40 PM EST 06/12/2025 6:13 PM EST us Generic External Data Provider LAB URINE ORDERAB LES Final Result [facility] [address] [place] [address] [phone] documented in this encounter Visit Diagnoses Not on filedocumented [...] documented as of this encounter Care Teams Director Of Dietary Relationship Specialty Start Date End Date Walter Aiken MD [address] [place] [phone] PCP - General Internal Medicine 04/05/14 [employer] 08/20/22 documented as of this encounter
--- OUTSIDE RECORDS SUMMARY | 2025-06-12 23:35 | XMS_ITS | Encounter Summary ---
Author Organization [employer] Address 75 [facility] 7 [place] [address] Care Team Providers Care Restaurant Shift Supervisor Name Role Phone Walter Aiken MD Primary Care Provider [phone] Reason for Visit * Reason Onset Date Comments Hospital Follow-up 07/10/2023 Encounter Details Date Type Department Care Team ([facility] st Contact Info) Description 07/10/2023 Telephone [facility] CHC MED & PEDS 505 [facility] [place] [address] Walter Aiken MD 505 [place] [address] Hospital Follow-up Social History Tobacco Use Types [...] from pt requesting a HDF appt. [place] [facility] [place]: 07/07/23 Discharge date: 07/09/23 Diagnosed: pneumonia documented in this encounter Plan of Treatment Not on file documented as of this encounter Visit Diagnoses Not on filedocumented in this encounter Care Teams Restaurant Shift Supervisor Relationship Specialty Start Date End Date Walter Aiken MD [address] [place] [address] PCP - General Internal Medicine 04/05/14 [employer] 08/20/22 documented as of this encounter
--- OUTSIDE RECORDS SUMMARY | 2025-06-12 23:35 | XMS_ITS | Encounter Summary ---
Author Organization [employer] Address 75 [facility] 7t [place] [address] Care Team Providers Care Edger Feeder Name Role Phone Walter Aiken MD Primary Care Provider [phone] Encounter Details Date Type Department Care Team ([facility] st Contact Info) Description 03/09/2024 Orders Only [facility] CHC MED & PEDS [address] [place] [address] Walter Aiken MD [address] [place], [place] [phone] Screening for colon cancer (Primary Dx) Social [...] Negative Negative 04/02/20 24 1:17 PM EDT [facility] (CLIA #:[id number]) Comment: NEGATIVE TEST RESULT. A negative Cologuard [...] Grace. et al, N Engl J Med 2014;370(14):5852-8273) The normal value (reference range) for this assay is negative. COLOGUARD RE-SCREENING RECOMMENDATION: Periodic colorectal cancer screening is an important part of preventive healthcare for asymptomatic individuals at average risk for colorectal cancer. Following a negative Cologuard result, the [employer] and U.S. Multi-Society Task Force screening guidelines recommend a Cologuard re-screening interval of 3 years. References: [employer] Guideline for Colorectal Cancer Screening: https://www.cancer.org/cancer/khbja-dvhddw-keamlm/kcdbzdyhp-dzmalvmvm-boyvqis/ac s-rec ommendations.html.; Rayshawn ROCHA, Cruzito ALVAREZ, Elyssa MCMULLEN, Colorectal Cancer Screening: Recommendations for Physicians and Patients from the U.S. Multi-Society Task Force on Colorectal Cancer Screening , Am J Gastroenterology 2017; 112:1007-2145. TEST DESCRIPTION: Composite algorithmic analysis of stool [...] Gomez et al, N Engl J Med 2014;370(14):8064-2590.) Cologuard may produce a false negative or false positive result (no colorectal cancer or precancerous polyp present at colonoscopy follow up). A negative Cologuard test result does not guarantee the absence of CRC or advanced adenoma (pre-cancer). The current Cologuard screening interval is every 3 years. ([employer] and U.S. Multi-Society Task Force). Cologuard performance data in a 10,000 patient pivotal study using colonoscopy as the reference method can be accessed at the following location: www.valuklik.Woozworld/results. Additional description of the Cologuard test process, warnings and precautions can be found at www.[employer].com. Stool specimen (specimen) 03/28/2024 7:56 PM EDT 03/30/2024 9:45 AM EDT Walter Aiken MD LAB MOLECULAR DIAGNOSTICS O RDERABLES Final Result [facility] (CLIA #:[id number]) [address] [place] [address], documented in this encounter Visit Diagnoses Diagnosis Screening for colon cancer- Primary Special screening for malignant neoplasms, colon documented in this encounter Care Teams Edger Feeder Relationship Specialty Start Date End Date Walter Aiken MD [address] [place] [address] PCP - General Internal Medicine 04/05/14 [employer] 08/20/22 documented as of this encounter
--- OUTSIDE RECORDS SUMMARY | 2025-06-12 23:35 | XMS_ITS | Encounter Summary ---
Author Organization [employer] Address 75 [facility] 7 [place] [address] Care Team Providers Care Gambreler Name Role Phone Walter Aiken MD Primary Care Provider [phone]- [phone] Reason for Visit * Reason Onset Date Comments Appointment Request 07/30/2023 Encounter Details Date Type Department Care Team (Late st Contact Info) Description 07/30/2023 Telephone [facility] MEDICINE [address] [place], [place] [phone] Walter Aiken MD 505 [facility] [place] [address] Appointment Request Social History Tobacco Use Types [...] person's name. Left VM at third number ([phone]) to call us back. Patient has recall in system for follow up with Dr. Aiken in July. Routing back to [facility] nurses to try again. Tc from patient [...] on filedocumented in this encounter Care Teams Gambreler Relationship Specialty Start Date End Date Walter Aiken MD [address] [place] [address] PCP - General Internal Medicine 04/05/14 General Specific 08/20/22 documented as of this encounter
--- OUTSIDE RECORDS SUMMARY | 2025-06-12 23:35 | XMS_ITS | Encounter Summary ---
Author Organization [facility] Address [address] [place] [address] Phone Care Team Providers Care Cat Scan Tech Name Role Phone Sharif Khalil MD Primary Care Provider [phone] Encounter Details Date Type Department Care Team (Late st Contact Info) Description 02/25/2018 Transcribe Orders [facility] Specimen Processing 30 [place] [address] Sharif Khalil MD 38 [facility] [place], [address] [place] [address] [email or web address] Diabetes mellitus of other type without complication, unspecified whether residential insulin use (Primary Dx) Social History Tobacco [...] EDT) WBC 9.05 3.40 - 11.20 K/uL [facility] RBC 4.09 3.80 - 4.80 M/uL [facility] HGB 12.0 12.0 - 15.0 g/dL [facility] HCT 36.2 36.0 - 46.0 % [facility] PLT 295 130 - 400 K/uL [facility] MCV 88.5 79.0 - 98.0 fL [facility] MCH 29.3 27.0 - 34.8 pg [facility] MCHC 33.1 31.5 - 36.0 g/dL [facility] RDW 13.3 10.8 - 14.6 % [facility] MPV 11.6 9.4 - 12.4 fl [facility] NRBC 0.00 /100 WBCs [facility] ABSOLUTE NRBC 0.00 K/uL [facility] Blood 02/25/2018 7:25 AM EDT 02/25/2018 9:20 AM EDT us Sharif Khalil MD LAB BLOOD BKR ORDERABLES Final R esult [facility] [address] [place] [address] * (ABNORMAL) Comprehensive metabolic panel (02/25/2018 7:25 AM EDT) SODIUM 136 133 - 146 mmol/L [facility] POTASSIUM 4.7 3.3 - 5.1 mmol/L [facility] CHLORIDE 94(L) 96 - 108 mmol/L [facility] CO2 23 21 - 35 mmol/L [facility] BUN 27(H) 6 - 19 mg/dL [facility] CREATININE 0.80 0.5 - 1.5 mg/dL [facility] GLUCOSE 323(H) 70 - 99 mg/dL [facility] ALBUMIN 3.8(L) 3.9 - 4.8 g/dL [facility] TOTAL PROTEIN 7.3 6.5 - 8.0 g/dL [facility] CALCIUM 10.4(H) 8.4 - 10.3 mg/dL [facility] ALKALINE PHOSPHATASE 140(H) 39 - 117 U/L [facility] TOTAL BILIRUBIN 0.3 0.0 - 1.2 mg/dL [facility] AST 30 0 - 37 U/L [facility] ALT 45(H) 0 - 40 U/L [facility] GLOBULIN 3.5 1 - 4.8 g/dL [facility] EGFR 85 >59 mL/min/1.7 3m2 [facility] Comment:If patient is black, multiply result by 1.159. Estimated glomerular filtration rate calculated using the CKD-EPI equation. ANION GAP 24(H) 10 - 20 mmol/L [facility] Blood 02/25/2018 7:25 AM EDT 02/25/2018 9:20 AM EDT us Sharif Khalil MD LAB BLOOD BKR ORDERABLES Final R esult [facility] [address] [place] [address] documented in this encounter Visit Diagnoses Diagnosis Diabetes mellitus of other type without complication, unspecified whether residential insulin use- Primary documented in this encounter Care Teams Cat Scan Tech Relationship Specialty Start Date End Date Sharif Khalil MD [email or web address] PCP - General Family Medicine 02/25/18 documented as of this encounter Additional Source Comments The information contained in this document represents components of the legal health record. It is not the complete legal health record.[facility]
--- OUTSIDE RECORDS SUMMARY | 2025-06-12 23:35 | XMS_ITS | Encounter Summary ---
Author Organization [employer] Address 75 [facility] 7 [place] [address] Care Team Providers Care Psychiatric Social Worker Supervisor Name Role Phone Walter Aiken MD Primary Care Provider [phone] Reason for Visit * Reason Onset Date Comments PT1 11/10/2024 Encounter Details Date Type Department Care Team (Late st Contact Info) Description 11/10/2024 Telephone [facility] MEDICINE 230 [place] [address] Walter Aiken MD 505 [facility] [place] [address] PT1 Social History Tobacco Use Types Packs/Day [...] Yes Provider name or facility name: 505 [place] [address] [facility] Escort needed: Y/N: No Do you have a wheelchair: Y/N: No If yes- Manual or electric: N/A Visits: (2x monthly) 2 of 3 Patient calling requesting PT1 Home Address verified: Y/N: Yes Provider name or facility name: 230 [facility] [address] [facility] Escort needed: Y/N: No Do you have a wheelchair: Y/N: No If yes- Manual or electric: N/A Visits: (2x monthly) 3 of 3 Patient calling requesting PT1 Home Address verified: Y/N: Yes Provider name or facility name: [facility] [address] [place] [address] Escort needed: Y/N: No Do you have a wheelchair: Y/N: No If yes- Manual or electric: N/A Visits: (1x monthly) documented in this encounter Plan of Treatment Not on file documented as of this encounter Visit Diagnoses Not on filedocumented in this encounter Additional Health Concerns Assessment Noted Time PHQ-9 Depression Total Score: 13 03/04/ 025 2:20 PM EST documented as of this encounter Care Teams Psychiatric Social Worker Supervisor Relationship Specialty Start Date End Date Walter Aiken MD [address] [place] [address] PCP - General Internal Medicine 04/05/14 [employer] 08/20/22 documented as of this encounter
--- OUTSIDE RECORDS SUMMARY | 2025-06-12 23:35 | XMS_ITS | Encounter Summary ---
Author Organization [employer] Address [address] [place] [address] Care Team Providers Care Case Technician Name Role Phone Walter Aiken MD Primary Care Provider [phone]- [phone] Reason for Visit * Reason Onset Date Comments Pt1 06/19/2023 Encounter Details Date Type Department Care Team ([facility] st Contact Info) Description 06/19/2023 Telephone [facility] CHC MED & PEDS 505 [place] [address] Walter Aiken MD 505 [place] [address] Pt1 Social History Tobacco Use Types Packs/Day [...] 07/24/23 Time: 11:30 Am Visits: (N/A) Address: [address] [place] [address] [place] [address] Facility: ([address] ) Wheel Chair: (No) Ab Initio Etl Developer Needed: No documented in this encounter Plan of Treatment Not on file documented as of this encounter Visit Diagnoses Not on filedocumented in this encounter Care Teams Case Technician Relationship Specialty Start Date End Date Walter Aiken MD [address] [place] [address] PCP - General Internal Medicine 04/05/14 [employer] 08/20/22 documented as of this encounter
--- OUTSIDE RECORDS SUMMARY | 2025-06-12 23:35 | XMS_ITS | Encounter Summary ---
Author Organization [employer] Address 75 [facility] 7t [place] [address] Care Team Providers Care Audiometric Technician Name Role Phone Walter Aiken MD Primary Care Provider [phone] Encounter Details Date Type Department Care Team (Latest Contact Info) Description 06/12/2025 Travel Social History Tobacco Use Types Packs/Day [...] [place] documented as of this encounter Visit Diagnoses [...] documented as of this encounter Care Teams Audiometric Technician Relationship Specialty Start Date End Date Walter Aiken MD [address] [place] [address] PCP - General Internal Medicine 04/05/14 [employer] 08/20/22 documented as of this encounter
--- OUTSIDE RECORDS SUMMARY | 2025-06-12 23:35 | XMS_ITS | Clinical Summary ---
Author Organization [employer] [facility] Address [address] [place] [address] Phone Care Team Providers Care Bicycle Racer Name Role Phone Sharif Khalil MD Primary Care Provider [phone] Social History Tobacco Use Types Packs/Day Years [...] [place] [address] MED[place] PART [place] [id number] [place] [id number] MEDICARE PART A & B [facility] [place] [id number] MEDICARE PART A & B [facility] & B [facility] MEDICARE PART A & B Member Subscriber Plan / Payer (Ef fective 2009-Present) Name:RosasChiaraBlank Member ID:[id number] Relation to Subscriber:Self Name:Mitesh Rosasa Subscriber ID:[id number] Payer ID:[id number] Group ID:Not on file Type:Medicare Address: [employer] [address] [place] MEDICARE PART A & B [facility] A & [place] [id number] MEDICARE PART A & B HEALTH [place] [id number] MEDICARE PART A & B [facility] Care Teams Bicycle Racer Relationship Specialty Start Date End Date Sharif Khalil MD [email or web address] PCP - General Family Medicine 02/25/18 Additional Source Comments The information contained in this document represents components of the legal health record. It is not the complete legal health record.[facility]
--- OUTSIDE RECORDS SUMMARY | 2025-06-12 23:35 | XMS_ITS | Encounter Summary ---
Author Organization [employer] Address [address] [place] [address] Floor [place] [id number] Care Team Providers Care Centrifugal Extractor Operator Name Role Phone Walter Aiken MD Primary Care Provider [phone] Reason for Visit * Reason Onset Date Comments Pt1 07/10/2023 Encounter Details Date Type Department Care Team ([facility] st Contact Info) Description 07/10/2023 Telephone [facility] CHC MED & PEDS 505 [place] [address] Walter Aiken MD 505 [place] [address] Pt1 Social History Tobacco Use Types Packs/Day [...] Time: 11:30 Visits: couple of visits Address: [address] [place] [address] Facility: [facility] Wheel Chair: No Rake Operator Needed: No documented in this encounter Plan of Treatment Not on file documented as of this encounter Visit Diagnoses Not on filedocumented in this encounter Care Teams Centrifugal Extractor Operator Relationship Specialty Start Date End Date Walter Aiken MD [address] [place] [address] PCP - General Internal Medicine 04/05/14 [email or web address] 08/20/22 documented as of this encounter
--- OUTSIDE RECORDS SUMMARY | 2025-06-12 23:35 | XMS_ITS | Encounter Summary ---
Author Organization [employer] Address [address] [place] [address] 7 [place] [address] Care Team Providers Care Education Research Analyst Name Role Phone Walter Aiken MD Primary Care Provider [phone] Reason for Referral * Imaging (Routine) - Closed Specialty Diagnoses / Procedures Referred By Myra aguilera Referred To Contact Radiology Diagnoses Encounter for screening mammogram for malignant neoplasm of breast Procedures BI Mammogram Screening Tomosynthesis Bilateral Walter Aiken MD [address] [place] [address] Phone: tel: fax: [address] [address] Phone: tel: fax: Referral ID Status Reason Start Date Expiration Date Visits Re quested Visits Authorized [id number] Closed 01/18/2025 01/18/2026 1 1 Encounter Details Date Type Department Care Team (Late st Contact Info) Description 01/18/2025 Orders Only [facility] CHC MED & PEDS 505 [place], [place] [phone] Walter Aiken MD 505 [place], [place] [phone] Encounter for screening mammogram for malignant neoplasm [...] documented as of this encounter Care Teams Education Research Analyst Relationship Specialty Start Date End Date Walter Aiken MD [address] [place] [address] PCP - General Internal Medicine 04/05/14 [facility] [employer] 08/20/22 documented as of this encounter
--- OUTSIDE RECORDS SUMMARY | 2025-06-12 23:35 | XMS_ITS | Encounter Summary ---
Author Organization [employer] Address 75 [facility] 7t [place] [address] Care Team Providers Care Changer Fixer Name Role Phone Walter Aiken MD Primary Care Provider [phone] Reason for Visit * Reason Onset Date Comments Referral 12/15/2024 Encounter Details Date Type Department Care Team ([facility] st Contact Info) Description 12/15/2024 Telephone [facility] MEDICINE 230 [place] [address] Walter Aiken MD 505 [facility] [place] [employer] [address] Referral Social History Tobacco Use Types Packs/Day [...] referral [facility] department at [facility] in regards left breast. documented in this encounter Plan of Treatment Not on file documented as of this encounter Visit Diagnoses Not on filedocumented in this encounter Additional Health Concerns Assessment Noted Time PHQ-9 Depression Total Score: 13 025 2:20 PM EST documented as of this encounter Care Teams Changer Fixer Relationship Specialty Start Date End Date Walter Aiken MD [address] [place] [address] PCP - General Internal Medicine 04/05/14 [employer] 08/20/22 documented as of this encounter
--- OUTSIDE RECORDS SUMMARY | 2025-06-12 23:35 | XMS_ITS | Encounter Summary ---
Author Organization [facility] Address [address] [facility] [address] [place] [address] Phone Care Team Providers Care Anatomy Professor Name Role Phone Sharif Khalil MD Primary Care Provider [phone] Encounter Details Date Type Department Care Team (Late st Contact Info) Description 03/02/2018 Transcribe Orders [facility] Specimen Processing 30 [place] [address] Sharif Khalil MD 38 [facility] [place], [address] [place] [address] [email or web address] Encephalopathy, unspecified (Primary Dx) Social History Tobacco [...] EDT) WBC 8.24 3.40 - 11.20 K/uL [facility] RBC 4.23 3.80 - 4.80 M/uL [facility] HGB 12.5 12.0 - 15.0 g/dL [facility] HCT 38.8 36.0 - 46.0 % [facility] PLT 317 130 - 400 K/uL [facility] MCV 91.7 79.0 - 98.0 fL [facility] MCH 29.6 27.0 - 34.8 pg [facility] MCHC 32.2 31.5 - 36.0 g/dL [facility] RDW 13.7 10.8 - 14.6 % [facility] MPV 12.1 9.4 - 12.4 fl [facility] NRBC 0.00 /100 WBCs [facility] ABSOLUTE NRBC 0.00 K/uL [facility] Blood 03/02/2018 6:20 AM EDT 03/02/2018 8:38 AM EDT us Sharif Khalil MD LAB BLOOD BKR ORDERABLES Final R esult [facility] 30 [place] [address] * (ABNORMAL) Comprehensive metabolic panel (03/02/2018 6:20 AM EDT) SODIUM 135 133 - 146 mmol/L [facility] POTASSIUM 4.0 3.3 - 5.1 mmol/L [facility] CHLORIDE 91(L) 96 - 108 mmol/L [facility] CO2 25 21 - 35 mmol/L [facility] BUN 26(H) 6 - 19 mg/dL [facility] CREATININE 0.90 0.5 - 1.5 mg/dL [facility] GLUCOSE 345(H) 70 - 99 mg/dL [facility] ALBUMIN 3.7(L) 3.9 - 4.8 g/dL [facility] TOTAL PROTEIN 8.0 6.5 - 8.0 g/dL [facility] CALCIUM 10.7(H) 8.4 - 10.3 mg/dL [facility] ALKALINE PHOSPHATASE 170(H) 39 - 117 U/L [facility] TOTAL BILIRUBIN 0.3 0.0 - 1.2 mg/dL [facility] AST 17 0 - 37 U/L [facility] ALT 26 0 - 40 U/L [facility] GLOBULIN 4.3 1 - 4.8 g/dL [facility] EGFR 74 >59 mL/min/1.7 3m2 [facility] Comment:If patient is black, multiply result by 1.159. Estimated glomerular filtration rate calculated using the CKD-EPI equation. ANION GAP 23(H) 10 - 20 mmol/L [facility] Blood 03/02/2018 6:20 AM EDT 03/02/2018 8:38 AM EDT us Shairf Khalil MD LAB BLOOD BKR ORDERABLES Final R esult [address] [address] documented in this encounter Visit Diagnoses Diagnosis Encephalopathy, unspecified- Primary documented in this encounter Care Teams Anatomy Professor Relationship Specialty Start Date End Date Sharif Khalil MD [email or web address] PCP - General Family Medicine 02/25/18 documented as of this encounter Additional Source Comments The information contained in this document represents components of the legal health record. It is not the complete legal health record.[facility]
--- OUTSIDE RECORDS SUMMARY | 2025-06-12 23:35 | XMS_ITS | Encounter Summary ---
Author Organization [employer] Address 75 [facility] 7 [place] [address] Care Team Providers Care Health Education Coordinator Name Role Phone Walter Aiken MD Primary Care Provider [phone] Reason for Visit * Reason Onset Date Comments Med Refill 03/23/2024 Encounter Details Date Type Department Care Team (Late st Contact Info) Description 03/23/2024 Telephone [facility] MEDICINE 230 [place] [address] Walter Aiken MD 505 [facility] [place] [address] Med Refill Social History Tobacco Use Types [...] 600 MG tablet To be sent to: [id number] [place], [place] - [address] [place] [address] AT [facility] documented in this encounter Plan of Treatment Not on file documented as of this encounter Visit Diagnoses Not on filedocumented in this encounter Care Teams Health Education Coordinator Relationship Specialty Start Date End Date Walter Aiken MD [address] [place] [address] PCP - General Internal Medicine 04/05/14 [employer] 08/20/22 documented as of this encounter
--- OUTSIDE RECORDS SUMMARY | 2025-06-12 23:35 | XMS_ITS | Encounter Summary ---
Author Organization [employer] Address 75 [facility] 7 [place] [address] Care Team Providers Care Bankruptcy Judge Name Role Phone Walter Aiken MD Primary Care Provider [phone] Reason for Visit * Reason Onset Date Comments PT-1 03/09/2024 Encounter Details Date Type Department Care Team (Late st Contact Info) Description 03/09/2024 Telephone [facility] MEDICINE 230 [place] [address] Walter Aiken MD 505 [facility] [place] [address] PT-1 Social History Tobacco Use Types Packs/Day [...] Y/N: Yes Provider name or facility name: [facility] Facility Address: [address] [place] [address] Escort needed: Y/N: No Do you have a wheelchair: Y/N: No If yes- Manual or electric: no Visits: 6 documented in this encounter Plan of Treatment Not on file documented as of this encounter Visit Diagnoses Not on filedocumented in this encounter Care Teams Bankruptcy Judge Relationship Specialty Start Date End Date Walter Aiken MD [address] [place] [address] PCP - General Internal Medicine 04/05/14 [employer] 08/20/22 documented as of this encounter
--- OUTSIDE RECORDS SUMMARY | 2025-06-12 23:35 | XMS_ITS | Encounter Summary ---
Author Organization [employer] Address 75 [facility] 7 [place] [address] Care Team Providers Care Angiography Nurse Name Role Phone Walter Aiken MD Primary Care Provider [phone]- [phone] Reason for Visit * Reason Onset Date Comments ER Follow-up 07/31/2023 Encounter Details Date Type Department Care Team ([facility] Contact Info) Description 07/31/2023 Telephone [facility] CHC MED & PEDS 505 [place] [address] Watler Aiken MD 505 [place] [address] ER Follow-up Social History Tobacco Use Types [...] ED visit on : Date: 07/31/23 Hospital: [facility] [place] Hospital Seen for: Trouble with Lungs Patient advised will forward to team nurse for follow up Please contact pt @ [phone] documented in this encounter Plan of Treatment Not on file documented as of this encounter Visit Diagnoses Not on filedocumented in this encounter Care Teams Angiography Nurse Relationship Specialty Start Date End Date Walter Aiken MD [address] [place] [address] PCP - General Internal Medicine 04/05/14 [employer] 08/20/22 documented as of this encounter
--- OUTSIDE RECORDS SUMMARY | 2025-06-12 23:35 | XMS_ITS | Encounter Summary ---
Author Organization [employer] Address [address] [place] [address] 7t [place] [address] Care Team Providers Care Office Coordinator Name Role Phone Walter Aiken MD Primary Care Provider [phone]- [phone] Encounter Details Date Type Department Care Team ([facility] st Contact Info) Description 09/18/2022 Orders Only [facility] CHC MED & PEDS 505 [place] [address] Walter Aiken MD 505 [place] [address] Social History Tobacco Use Types Packs/Day Years [...] on filedocumented in this encounter Care Teams Office Coordinator Relationship Specialty Start Date End Date Walter Aiken MD 505 [place] [address] PCP - General Internal Medicine 04/05/14 [employer] 08/20/22 documented as of this encounter
--- OUTSIDE RECORDS SUMMARY | 2025-06-12 23:36 | XMS_ITS | Encounter Summary ---
Author Organization [employer] Address [address] [place] [address] 7t [place] [address] Care Team Providers Care Web Systems Developer Name Role Phone Walter Aiken MD Primary Care Provider [phone]- [phone] Encounter Details Date Type Department Care Team ([facility] st Contact Info) Description 03/03/2023 Orders Only [facility] CHC MED & PEDS 505 [place] [address] Walter Aiken MD 505 [place] [address] Social History Tobacco Use Types Packs/Day Years [...] on filedocumented in this encounter Care Teams Web Systems Developer Relationship Specialty Start Date End Date Walter Aiken MD 505 [place] [address] PCP - General Internal Medicine 04/05/14 [employer] 08/20/22 documented as of this encounter
--- OUTSIDE RECORDS SUMMARY | 2025-06-12 23:36 | XMS_ITS | Encounter Summary ---
Author Organization [employer] Address [address] [facility] [address] [place] [address] Care Team Providers Care Nuclear Fuels Research Engineer Name Role Phone Walter Aiken MD Primary Care Provider [phone] Reason for Visit * Reason Onset Date Comments Nurse Triage 01/12/2024 Encounter Details Date Type Department Care Team (Late st Contact Info) Description 01/12/2024 Telephone [facility] MEDIC[facility] [address] [place] [address] Walter Aiken MD [address] [facility] [place] [address] Nurse Triage Social History Tobacco Use Types [...] report area open. Advised to come to [facility] today open till 730pm. Pt reports will [...] on filedocumented in this encounter Care Teams Nuclear Fuels Research Engineer Relationship Specialty Start Date End Date Walter Aiken MD [address] [place] [id number] PCP - General Internal Medicine 04/05/14 [employer] 08/20/22 documented as of this encounter
--- OUTSIDE RECORDS SUMMARY | 2025-06-12 23:36 | XMS_ITS | Encounter Summary ---
Author Organization [employer] Address [address] [facility] [address] [place] [address] Care Team Providers Care Patient Liaison Name Role Phone Walter Aiken MD Primary Care Provider [phone] Reason for Visit * Reason Onset Date Comments Nurse Triage 02/17/2023 Encounter Details Date Type Department Care Team ([facility] st Contact Info) Description 02/17/2023 Telephone [facility] [address] [place] [address] Walter Aiken MD [address] [place] [address] Nurse Triage Social History Tobacco Use Types [...] and decided to go to ED 02/16/23, [facility], xray showed fracture of right ankle. Pt [...] working for the pain . Patient speaks Welsh. Advised triage nurse will call patient back. documented in this encounter Plan of Treatment Not on file documented as of this encounter Visit Diagnoses Not on filedocumented in this encounter Care Teams Patient Liaison Relationship Specialty Start Date End Date Walter Aiken MD [address] [place] [id number] PCP - General Internal Medicine 04/05/14 [employer] 08/20/22 documented as of this encounter
--- OUTSIDE RECORDS SUMMARY | 2025-06-12 23:36 | XMS_ITS | Encounter Summary ---
Author Organization [employer] Address [address] [place] [address] [address] [place] [address] Care Team Providers Care Digester Operator Helper Name Role Phone Walter Aiken MD Primary Care Provider [phone] Reason for Visit * Reason Onset Date Comments Med Refill 02/03/2023 Encounter Details Date Type Department Care Team (Late st Contact Info) Description 02/03/[address] [id number] Walter Aiken MD [address] [place] [address] Med Refill Social History Tobacco Use Types [...] on filedocumented in this encounter Care Teams Digester Operator Helper Relationship Specialty Start Date End Date Walter Aiken MD [address] [place] [address] PCP - General Internal Medicine 04/05/14 [employer] 08/20/22 documented as of this encounter
--- OUTSIDE RECORDS SUMMARY | 2025-06-12 23:36 | XMS_ITS | Clinical Summary ---
Author Organization [employer] Address [address] [place] [address] [address] [place] [address] Care Team Providers Care Film Spooler Name Role Phone Walter Aiken MD Primary Care Provider [phone] Allergies Active Allergy Reactions Criticality Noted Date [...] tablet by mouth every 6 (six) hours. Active Misc. Devices (Rollator Ultra-Light) misc Ac [...] Blood Gluc Sensor (FreeStyle Celia 2 Sensor) [facility] To monitor the blood glucose daily 2 each 11 023 Active Continuous Blood Gluc Application Lead (FreeStyle Celia 2 Captiva) device Scan sensor every 8 hours 1 each 023 Active ketoconazole (Nizoral) 2 % shampooIndication s:Dandruff in adult Apply topically 2 (two) times a week. 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 90 tablet 1 024 Active Diclofenac Sodium 1 % gelIndications:Ri ght buttock pain APPLY 2 GRAMS TOPICALLY TO THE AFFECTED AREA FOUR TIMES DAILY 100 g 024 Active FreeStyle lancetsIndication s:Controlled type 2 diabetes mellitus with hyperglycemia, with long-term current use of insulin (HCC) 1 each by Other route 4 times daily. USE FOUR TIMES DAILY 100 each 024 Active glucose blood (FREESTYLE LITE) test strip USE FOUR TIMES DAILY 100 strip 024 Active simvastatin (Zocor) 40 MG tabletIndications [...] day at the same time. 14 patch 025 Active nicotine polacrilex (Commit) 4 MG lozenge Dissolve 1 lozenge (4 mg) in the mouth every 2 (two) hours if needed for smoking cessation. 100 lozenge 025 Active Blood Pressure kit 1 each 2 [...] needed for opioid reversal. 2 each 2 025 Active metFORMIN (Glucophage) 1000 MG tablet TAKE 1 TABLET BY MOUTH TWICE DAILY 60 tablet 11 025 Active baclofen (Lioresal) 10 MG tabletIndications :Chronic pain syndrome TAKE 1 TABLET(10 MG) BY MOUTH EVERY 8 HOURS 90 tablet 025 Active omeprazole (PriLOSEC) [address] capsule TAKE 1 CAPSULE BY MOUTH ONCE DAILY IN THE MORNING BEFORE A MEAL 90 capsule 3 025 Active pantoprazole (Protonix) 40 MG EC tabletIndications :Gastroesophageal reflux disease without esophagitis Take 1 tablet (40 mg) by mouth before breakfast. Do not crush, chew, or split. 30 tablet 11 025 2025 Active FLUoxetine (PROzac) 20 MG capsule TAKE 2 CAPSULES BY MOUTH EVERY DAY IN THE MORNING 60 capsule 3 025 Active docusate sodium (Colace) 100 MG capsule Take 1 capsule (100 mg) by mouth Once per day. 90 capsule 3 Active ferrous sulfate (FeroSul) 325 (65 Fe) MG tablet TAKE 1 TABLET BY MOUTH TWICE DAILY WITH FOOD. 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 3 mL 12 025 2025 Active pen needle 32G x 4 mm miscIndications:D iabetes type 2, controlled ([facility]) Use as instructed 100 each 12 025 2025 Active insulin syringe-needle U-100 (UltiCare Insulin Syringe) 31G X 5/16 0.3 mL miscIndications:D iabetic ulcer of left lower leg ([facility]) USE DIRECTED TO INJECT INSULIN 100 each 5 Active baclofen (Lioresal) 10 MG tabletIndications :Chronic pain syndrome TAKE 1 TABLET(10 MG) BY MOUTH EVERY 8 HOURS 90 tablet Active bisacodyl (Dulcolax) 5 MG EC tabletIndications :Other constipation Take 1 tablet (5 mg) by mouth if needed each day for constipation. Do not crush, chew, or split. 30 tablet 025 2025 Active celecoxib (CeleBREX) 100 MG capsuleIndication s:Pain in other joint,Chronic pain syndrome TAKE 1 CAPSULE BY MOUTH EVERY 12 HOURS 30 capsule 2 025 Active mirtazapine (Remeron Sumaya-Tab) 45 MG disintegrating tabletIndications :Other insomnia Take 1 tablet (45 mg) by mouth at bedtime. 30 tablet 11 Active Multiple Vitamin (multivitamin) tablet Take 1 tablet by mouth Once per day. 30 tablet 3 Active celecoxib (CeleBREX) 100 MG capsuleIndication s:Chronic pain syndrome TAKE 1 CAPSULE BY MOUTH EVERY 12 HOURS 30 capsule 2 024 2024 Discontinued(R eorder (will not trigger notification to Pharmacy)) mirtazapine (Remeron Sumaya-Tab) 30 MG disintegrating tabletIndications :Other insomnia DISSOLVE 1 TABLET(30 MG) ON THE TONGUE AT BEDTIME 30 tablet 3 025 2024 Discontinued(R eorder (will not trigger notification to Pharmacy)) insulin syringe-needle U-100 (UltiCare Insulin Syringe) 31G X 5/16 0.3 mL miscIndications:D iabetic ulcer of left lower leg (HCC) USE DIRECTED TO INJECT INSULIN 100 each 5 025 2024 Discontinued ibuprofen 600 MG tabletIndications :Chronic pain syndrome TAKE 1 TABLET(600 MG) BY MOUTH EVERY 8 HOURS NEEDED FOR MILD PAIN OR MODERATE PAIN 90 tablet 1 025 2024 Discontinued(T herapy completed) baclofen (Lioresal) 10 MG tabletIndications :Chronic pain [...] Encounters Date Type Department Care Team Description 06/12/2025 1:45 PM EST Office Visit [facility] [address] [place] [address] Walter Aiken MD Other constipation (Primary Dx); Rectal bleed; Primary insomnia; Pain in other joint; Uncontrolled type 2 diabetes mellitus with hyperglycemia (HCC); Chronic pain syndrome; Other insomnia; Tobacco dependence 06/12/2025 Orders Only GENERIC EXTERNAL DATA DEPARTMENT Provider, Generic External Data 06/12/2025 Travel 06/09/2025 Telephone [facility] [address] [place] [phone] Anamika Charlton, LEVON 06/07/[address] [address] Walter Aiken MD Nurse Triage 06/06/2025 Refill [facility] [address] [place] [address] Walter Aiken MD Chronic pain syndrome 06/05/2025 Refill [facility] [address] [place] [address] Walter Aiken MD 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) 05/11/[address] [address] Walter Aiken MD 05/09/[address] [address] Walter Aiken MD Nurse Triage 05/01/[address] [address] Walter Aiken MD 05/01/2025 Telephone [facility] [address] [place] [address] Daly Sorto, OD 04/28/2025 Telephone [facility] [address] [place] [phone] Walter Aiken MD 04/26/2025 Telephone [facility] [address] [place] [phone] Walter Aiken MD Nurse Triage 04/25/2025 Refill [facility] [address] [place] [address] Walter Aiken MD Chronic pain syndrome 04/24/2025 Telephone [facility] [address] [place] [address] Walter Aiken MD Chart Prep 04/24/2025 Telephone [facility] [address] [place] [phone] Walter Aiken MD 04/18/2025 Patient Outreach [facility] [address] [place] [address] Walter Aiken MD Care Management (Care Coordination assistance for non C3 patient. 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) 04/07/2025 2:30 PM EDT Office Visit [facility] [address] [place] [address] Walter Aiken MD Breast pain, left (Primary Dx); Diabetes type 2, controlled (HCC); Hypercholesterolemia; Other constipation; Dietary counseling; Exercise counseling; Overweight; Encounter for immunization; Memory disturbance; Other chest pain 04/07/2025 Travel 04/06/[address] [address] Walter Aiken MD Nurse Triage 04/04/2025 Results Follow-Up [facility] [address] [place] [address] Claire Garibay RN BI Mammogram Diagnostic Tomosynthesis Bilateral 04/03/2025 Orders Only [facility] [address] [facility] [place] [address] Walter Aiken MD 03/15/2025 Telephone [facility] [address] [place], [place] [phone] Walter Aiken MD No Show 03/14/2025 Telephone [facility] [address] [place] [address] Walter Aiken MD Chart Prep from Last 3 Months Immunizations Immunization Administration Dates Next Due Hep B, adult 04/08/2019,01/18/2019,11/01/2018 Influenza injectable quadriv alent IIV4 with preservative 03/23/2017,05/07/2015 Influenza injectable quadriv alent preservative free 04/08/2019 Influenza, seasonal, injecta ble, preservative free 04/07/2025 TD (adult), 2 Lf tetanus tox oid, [...] Mass Index 28.28 06/12/2025 1:59 PM EST Plan of Treatment Health Maintenance [...] 06/16/2012 Dental X-Ray: Bitewings 06/17/2013 06/16/2012, 06/16 RSV Patients and Patients Aged 60 years or older (1 - Risk 50-74 years 1-dose series) 2016 Zoster Vaccines (1 of 2) 2016 Pap Smear 01/18/2022 01/18/2019 Cervical Cancer Screening 01/19/2024 HPV/Cotest 01/19/2024 01/18/2019 COVID-19 Vaccine ( season) 2025 11/16/2020 Depression Monitoring 03/09/2025 09/06/2024, 025 FOBT 03/28/2025 03/28/2024 Diabetes: Hemoglobin A1C 07/08/2025 025, 09/06/2024, 04/29/2024, Additional history exists Alcohol/Substance Use Screening 09/06/2025 09/06/2024 SDOH Screening 09/06/2025 09/06/2024 Dental X-Ray: Full Mouth 11/20/2025 023, 06/16/2012, 06/16/2012 Diabetes: Urine Protein Screening 06/12/2026 06/12/2025, 06/23/2023 Tobacco Screening 06/12/2026 06/12/2025 Colorectal Cancer Screening 03/28/2027 FIT DNA/Cologuard 03/28/2027 03/28/2024 Mammogram 04/03/2027 04/03/2025, 03/07, 02/23/2023, Additional history exists DTaP/Tdap/Td Vaccines (3 - Td or Tdap) 07/24/2027 07/24/2017, 02/28/2016 Hepatitis B Vaccines Completed 04/08/2019, 01/18/2019, 11/01/2018 Influenza Vaccine Completed 04/07/2025, , 03/23/2017, Additional history exists HIB Vaccines Aged Out No longer eligi [...] on patient's age to complete this topic Goals Goal Patient Goal Type Associated Problems [...] chronic kidney disease No Renetta Vega MA Procedures Procedure Name Priority Date/Time Associated Diagnosis Comments POCT GLUCOSE Routine 06/12/2025 3:14 PM EST Uncontrolled type 2 diabetes mellitus with hyperglycemia (HCC) URINALYSIS, COMPLETE (INCLUDES MACRO AND MICRO) Routine 06/12/2025 2:40 PM EST PROTEIN CREATININE RATIO, URINE Routine 06/12/2025 2:40 PM EST SED RATE BY MODIFIED WESTERGREN Routine 06/12/2025 2:32 PM EST Pain in other joint VITAMIN B12/FOLATE, SERUM PANEL Routine 06/12/2025 2:32 PM EST Primary insomnia BASIC METABOLIC PANEL Routine 06/12/2025 2:32 PM EST Rectal bleed CBC WITH AUTO DIFFERENTIAL Routine 06/12/2025 2:32 PM EST Rectal bleed ECG 12-LEAD Routine 04/07/2025 5:08 PM EDT Other chest pain POCT GLYCATED HEMOGLOBIN, TOTAL Routine 04/07/2025 3:56 PM EDT Diabetes type 2, controlled (HCC) POCT GLUCOSE Routine 04/07/2025 3:56 PM EDT Diabetes type 2, controlled (HCC) BI US BREAST LIMITED LEFT Routine 04/03/2025 9:37 AM EDT BI MAMMOGRAM DIAGNOSTIC TOMOSYNTHESIS BILATERAL Routine 04/03/2025 9:10 AM EDT Breast pain, left LAB COLOGUARD COLON CANCER SCREEN Routine 03/28/2024 7:56 PM EDT Screening for colon cancer PANORAMIC RADIOGRAPHIC IMAGE Routine 11/19/2022 10:30 AM [...] to Health Maintenance Results * (ABNORMAL) POCT Glucose (06/12/2025 3:14 PM EST) Only the most recent of2 resultswithin the time period is included. Pathologist [facility] Glucose Blood, POC 299(A) 60 - 200 mg/dL QC Media Lot # [id number] Lot# Expiration Date [id number] Comment:random Blood Capillary blood specimen / Unknown 06/12/2025 3:14 PM EST Walter Aiken MD POINT OF CARE TEST ENTER/ED IT ORDERABLES Final Result * (ABNORMAL) Protein Creatinine Ratio, Urine (06/12/2025 2:40 PM EST) Creatinine, Urine 162.33 mg/dL [facility] Protein, Total, Random Urine 547(H) <12 mg/dL [facility] Protein/Creati nine Ratio, Ur 3.37(H) <0.2 [facility] Comment:The spot urine prote in:creatinine ratio may increase to 0.3during normal . 06/12/2025 2:40 PM EST 06/12/2025 6:13 PM EST Generic External Data Provider LAB URINE ORDERAB LES Final Result [facility] [address] [place] [address] [phone] * (ABNORMAL) Urinalysis Complete (06/12/2025 2:40 PM EST) Color Urine Yellow [facility] Appearance Urine Clear [facility] PH 5.5 5.0 - 9.0 [facility] Glucose Urine UA 500(A) Negative mg/dL [facility] Urine Blood Trace(A) Negative [facility] Specific [place] - Urine 1.025 1.005 - 1.025 [facility] Urine Protein 300 (3+)(A) Neg-Trace mg/dL [facility] Urine Ketones Negative Negative mg/dL [facility] Nitrite Urine Negative Negative [facility] Leukocyte Esterase Urine Negative Negative [facility] RBC Urine 0-2 0 - 2 /HPF [facility] Urine WBC 0-5 0 - 5 /HPF [facility] Urine Squamous Epithelial Cell >20 0 - 2 /HPF [facility] Urine Bacteria 1+ None Seen [facility] Hyaline Casts, Urine 0-2 0 - 2 /LPF [facility] 06/12/2025 2:40 PM EST 06/12/2025 6:13 PM EST us Generic External Data Provider LAB URINE ORDERAB LES Final Result Performing Organization Address [facility] Co de Phone Number [facility] [address] [place] [phone] * Vitamin B12/Folate, Serum Panel (06/12/2025 2:32 PM EST) Pathologist [facility] Vitamin B12 384 200 - 900 pg/mL [facility] Comment:NORMAL 200-900 PG/ML INDETERMINATE 160-199 PG/ML DEFICIENT < 160 PG/ML Folate 10.1 > or = 4.0 ng/mL [facility] Comment:Reference Values:> o r = 4.0 [...] BLOOD ORDERABLES Final Result Performing Organization Address [facility] Co de Phone Number [facility] [address] [place] [phone] * (ABNORMAL) CBC auto differential (06/12/2025 2:32 PM EST) Pathologist [facility] White Blood Count 7.3 4.8 - 10.8 X10*3/uL [facility] Red Blood Count 3.84(L) 4.20 - 5.50 X10*6/uL [facility] Hemoglobin 11.0(L) 12.0 - 16.0 g/dl [facility] Hematocrit 34.4(L) 37.0 - 47.0 % [facility] Mean Corpuscular Volume 89.6 80.0 - 98.0 fL [facility] Mean Corpuscular Hemoglobin 28.6 27.0 - 33.0 pg [facility] Mean Corpuscular HGB Conc 32.0 31.0 - 35.0 g/dl [facility] Red Cell Distribution Width 14.3 11.0 - 16.0 % [facility] Platelet Count 305 160 - 400 X10*3/uL [facility] Mean Platelet Volume 11.8 9.4 - 12.3 fL [facility] Neutrophils Percent Auto 61.3 45 - 73 % [facility] Imm Gran Pct Auto 0.4 0.0 - 0.4 % [facility] Lymphocytes Percent Auto 28.8 20 - 40 % [facility] Monocytes Percent Auto 6.1 2 - 11 % [facility] Eosinophils Percent Auto 2.6 0 - 4 % [facility] Basophils Percent Auto 0.8 0 - 2 % [facility] NRBC Pct Auto 0.0 0.0 - 0.2 /100WBC [facility] Neutrophils Absolute Auto 4.5 2.0 - 8.3 x10*3/uL [facility] Imm Gran Abs Auto 0.03 0.00 - 0.03 X10*3/uL [facility] Lymphocytes Absolute Auto 2.1 1.2 - 4.9 X10*3/uL [facility] Monocytes Absolute Auto 0.5 0.1 - 1.2 X10*3/uL [facility] Eosinophils Absolute Auto 0.2 0.0 - 0.4 X10*3/uL [facility] Basophils Absolute Auto 0.1 0.0 - 0.2 X10*3/uL [facility] NRBC Abs Auto 0.000 0.0 - 0.012 X10*3/uL [facility] Blood Venous blood specimen / Unknown 06/12/2025 2:32 PM EST 06/12/2025 6:10 PM EST us Walter Aiekn MD LAB BLOOD ORDERABLES Final Result Performing Organization Address [facility] de Phone Number [facility] [address] [place] [phone] * (ABNORMAL) Sed Rate by Modified W[place]gren (06/12/2025 2:32 PM EST) Pathologist [facility] Erythrocyte Sedimentation Rate 113(H) 0 - 20 MM/HR [facility] Comment:Patients with polycy themia and many hemoglobin abnormalitiesmay have depressed sed rates whereas patients with anemiamay have elevated sed rates. Blood Venous blood specimen / Unknown 06/12/2025 2:32 PM EST 06/12/2025 6:10 PM EST Walter Aiken MD LAB BLOOD ORDERABLES Final Result Performing Organization Address [facility] de Phone Number [facility] [address] [place] [phone] * (ABNORMAL) Basic Metabolic Panel (06/12/2025 2:32 PM EST) [facility] Sodium 138 135 - 145 mmol/L [facility] Potassium 4.6 3.3 - 5.1 mmol/L [facility] Chloride 107 96 - 108 mmol/L [facility] Carbon Dioxide 22 22 - 29 mmol/L [facility] Anion Gap 14 12 - 20 [facility] Urea Nitrogen (BUN) 30(H) 9 - 16 mg/dL [facility] Creatinine, Serum 1.22 0.5 - 1.4 mg/dL [facility] Estimated Glomerular Filt Rate 45 [facility] Comment:Chronic Kidney Disea se: Estimated GFR < 60 mL/min/1.74i4Sjclkh Kidney Disease: Estimated GFR < 15 mL/min/1.73m2 Glucose 241(H) 60 - 115 mg/dL [facility] Calcium 9.1 8.4 - 10.2 mg/dL [facility] Blood Venous blood specimen / Unknown 06/12/2025 2:32 PM EST 06/12/2025 6:10 PM EST Walter Aiken MD LAB BLOOD ORDERABLES Final Result [facility] [address] [place] [phone] * ECG 12 lead (04/07/2025 5:08 PM EDT) Narrative Walter Aiken MD - 04/07/2025 5:08 PM EDT HR 71 bpm. Aragon: 67%. No sign of LAE/RACHELLE,. No sign of hypertrophy. No ST elevation or ST depression. Normal ECG Walter Aiken MD ECG ORDERABLES Final Resul t * (ABNORMAL) POCT Hgb A1c (04/07/2025 3:56 PM EDT) Hemoglobin A1C 12.2(A) 4.0 - 5.7 % QC Media Lot # [id number] Lot# Expiration Date 473, Blood 04/07/2025 3:56 PM EDT Walter Aiken MD POINT OF CARE TEST ENTER/ED IT ORDERABLES Final Result * BI US Breast Limited Left (04/03/2025 9:37 AM EDT) Anatomical Region Laterality Modality Breast Left Ultrasound 04/03/2025 9:37 AM EDT Narrative 04/03/2025 9:57 AM EDT [facility] [address] [place] [address] Ultrasound Report Signed with Marta Patient: Blank Rosas I MR#: [id number] : 1965 Acct:[id number] Age/Sex: 59 / F ADM Date: 04/03/25 Loc: HO.MAMMO Attending Dr: Walter Aiken MD Ordering Physician: Walter Aiken MD Date of Service: 04/03/25 Procedure(s): US breast LT limited mamm only Accession Number(s): [id number] cc: Walter Aiken MD Reason for Exam: LT BR PAIN ADDENDUM ADDENDUM #1 ADDENDUM: Addendum created to clarify the overall assessment: OVERALL ASSESSMENT: BI-RADS: Category 1: Negative Electronically signed by: April Al MD 04/03/2025 11:53 AM EDT RP Addendum Dictated By: April Al MD Addendum Signed By: <Electronically signed by April Al MD in OV> 04/03/25 1153 Addendum Cosigned By: DD/ TD/TT: 04/03/25 EXAMINATION(S): 1. MM DIAGNOSTIC DIGITAL BREAST TOMOSYNTHESIS, BILATERAL 2. Targeted ultrasound of the left breast CLINICAL INFORMATION: Left breast pain. Initially, patient described diffuse left breast pain, therefore no skin marker was placed for the mammogram study. However, later, the patient described left focal pain around the nipple. COMPARISON: February 23, 2023 and December 09, 2013. TECHNIQUE: Digital breast tomosynthesis is performed in along with computer-aided detection (CAD). Synthesized 2D images are generated from the tomosynthesis. FINDINGS: BREAST COMPOSITION: There are scattered areas of fibroglandular density. RIGHT BREAST: No significant masses, suspicious calcifications or other abnormalities are seen. LEFT BREAST: No significant masses, suspicious calcifications or other abnormalities are seen. Targeted ultrasound of the left breast was performed at the location of the focal pain as indicated by the patient. The survey throughout the retroareolar region did not reveal suspicious sonographic findings. US/US breast LT limited mamm only IMPRESSION: RIGHT BREAST: Negative, no mammographic evidence of malignancy. Normal interval follow-up is recommended in 12 months. LEFT BREAST: Negative, no evidence of malignancy. In particular, no abnormality to accounts for patient's history of focal pain. Clinical follow-up is recommended. Otherwise, normal interval follow-up mammogram is recommended in 12 months. ASSESSMENT: Category 1: Negative RECOMMENDATION: 1. Patient should be managed based on the clinical impression. 2. Otherwise, routine annual screening mammography. Results were provided to the patient at time of visit by the technologist. This patient's information was entered into a reminder system with a target due date for their next mammogram. Electronically signed by: April Al MD 04/03/2025 09:54 AM EDT RP Dictated By: April Al MD Signed By: <Electronically signed by April Al MD in OV> 04/03/2554 DD/ 6 TD/TT: 04/03/25953 [employer] Operator: Procedure Note Donotuseinterpreter, Image - 04/03/2025 [facility] [address] [place] [address] Ultrasound Report Signed with Addenda Patient: Blank Rosas [facility]#: [id number] : 1965Acct:[id number] Age/Sex: 59 / FADM Date: 04/03/25 Loc: HO.MAMMO Attending Dr: Walter Aiken MD Ordering Physician: Walter Aiken MD Date of Service: 04/03/25 Procedure(s): US breast LT limited mamm only Accession Number(s): [id number] cc: Walter Aiken MD Reason for Exam: LT BR PAIN ADDENDUM ADDENDUM #1 ADDENDUM: Addendum created to clarify the overall assessment: OVERALL ASSESSMENT: BI-RADS: Category 1: Negative Electronically signed by: April Al MD 04/03/2025 11:53 AM EDT RP Addendum Dictated By: April Al MD Addendum Signed By: <Electronically signed by MD Dominick in OV> 04/03/25 1153 Addendum Cosigned By: DD/ TD/TT: 04/03/25 EXAMINATION(S): 1. MM DIAGNOSTIC DIGITAL BREAST TOMOSYNTHESIS, BILATERAL 2. Targeted ultrasound of the left breast CLINICAL INFORMATION: Left breast pain. Initially, patient described diffuse left breast pain, therefore no skin marker was placed for the mammogram study. However, later, the patient described left focal pain around the nipple. COMPARISON: February 23, 2023 and December 09, 2013. TECHNIQUE: Digital breast tomosynthesis is performed in along with computer-aided detection (CAD). Synthesized 2D images are generated from the tomosynthesis. FINDINGS: BREAST COMPOSITION: There are scattered areas of fibroglandular density. RIGHT BREAST: No significant masses, suspicious calcifications or other abnormalities are seen. LEFT BREAST: No significant masses, suspicious calcifications or other abnormalities are seen. Targeted ultrasound of the left breast was performed at the location of the focal pain as indicated by the patient. The survey throughout the retroareolar region did not reveal suspicious sonographic findings. US/US breast LT limited mamm only IMPRESSION: RIGHT BREAST: Negative, no mammographic evidence of malignancy. Normal interval follow-up is recommended in 12 months. LEFT BREAST: Negative, no evidence of malignancy. In particular, no abnormality to accounts for patient's history of focal pain. Clinical follow-up is recommended. Otherwise, normal interval follow-up mammogram is recommended in 12 months. ASSESSMENT: Category 1: Negative RECOMMENDATION: 1. Patient should be managed based on the clinical impression. 2. Otherwise, routine annual screening mammography. Results were provided to the patient at time of visit by the technologist. This patient's information was entered into a reminder system with a target due date for their next mammogram. Electronically signed by: April Al MD 04/03/2025 09:54 AM EDT Dictated By: April Al MD Signed By: <Electronically signed by April Al MD in OV> 04/03/25953 DD/ 6 TD/TT: 04/03/25953 Carton Waxing Machine Operator: us Walter Aiken MD [facility] [place] PROCEDURES Edited Re sult - Final * BI Mammogram Diagnostic Tomosynthesis Bilateral (04/03/2025 9:10 AM EDT) Anatomical Region Laterality Modality Breast Bilateral Mammography 04/03/2025 9:10 AM EDT Narrative 04/03/2025 9:57 AM EDT [facility] [address] [place], [place] [address] Mammography Report Signed with Addenda Patient: Blank Rosas I MR#: [id number] : 1965 Acct:[id number] Age/Sex: 59 / F ADM Date: 04/03/25 Loc: HO.MAMMO Attending Dr: Walter Aiken MD Ordering Physician: Walter Aiken MD Results: 1 Negative Date of Service: 04/03/25 Follow Up: 1 Year From [facility] Mammogram Procedure(s): MM tomosynthesis diagnostic BI Accession Number(s): [id number] cc: Walter Aiken MD Reason For Exam: left breast pain ADDENDUM ADDENDUM #1 ADDENDUM: Addendum created to clarify the overall assessment: OVERALL ASSESSMENT: BI-RADS: Category 1: Negative Electronically signed by: April Al MD 04/03/2025 11:53 AM EDT Addendum Dictated By: April Al MD Addendum Signed By: <Electronically signed by April Al MD in OV> 04/03/25 1153 Addendum Cosigned By: DD/ TD/TT: 04/03/25 EXAMINATION(S): 1. MM DIAGNOSTIC DIGITAL BREAST TOMOSYNTHESIS, BILATERAL 2. Targeted ultrasound of the left breast CLINICAL INFORMATION: Left breast pain. Initially, patient described diffuse left breast pain, therefore no skin marker was placed for the mammogram study. However, later, the patient described left focal pain around the nipple. COMPARISON: February 23, 2023 and December 09, 2013. TECHNIQUE: Digital breast tomosynthesis is performed in along with computer-aided detection (CAD). Synthesized 2D images are generated from the tomosynthesis. FINDINGS: BREAST COMPOSITION: There are scattered areas of fibroglandular density. RIGHT BREAST: No significant masses, suspicious calcifications or other abnormalities are seen. LEFT BREAST: No significant masses, suspicious calcifications or other abnormalities are seen. Targeted ultrasound of the left breast was performed at the location of the focal pain as indicated by the patient. The survey throughout the retroareolar region did not reveal suspicious sonographic findings. MM/MM tomosynthesis diagnostic BI IMPRESSION: RIGHT BREAST: Negative, no mammographic evidence of malignancy. Normal interval follow-up is recommended in 12 months. LEFT BREAST: Negative, no evidence of malignancy. In particular, no abnormality to accounts for patient's history of focal pain. Clinical follow-up is recommended. Otherwise, normal interval follow-up mammogram is recommended in 12 months. ASSESSMENT: Category 1: Negative RECOMMENDATION: 1. Patient should be managed based on the clinical impression. 2. Otherwise, routine annual screening mammography. Results were provided to the patient at time of visit by the technologist. This patient's information was entered into a reminder system with a target due date for their next mammogram. 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 [address] Mammography Report Signed with Marta Patient: Blank Rosas [facility]#: [id number] : 1965Acct:[id number] Age/Sex: 59 / FADM Date: 04/03/25 Loc: HO.MAMMO Attending Dr: Walter Aiken MD Ordering Physician: Beauzile,Thevenin C MDResults: 1 Negative Date of Service: 04/03/25Follow Up: 1 Year From [facility] Mammogram Procedure(s): MM tomosynthesis diagnostic BI Accession Number(s): [id number] cc: Walter Aiken MD Reason For Exam: left breast pain ADDENDUM ADDENDUM #1 ADDENDUM: Addendum created to clarify the overall assessment: OVERALL ASSESSMENT: BI-RADS: Category 1: Negative Electronically signed by: April Al MD 04/03/2025 11:53 AM EDT RP Addendum Dictated By: April Al MD Addendum Signed By: <Electronically signed by MD Dominick in OV> 04/03/25 1153 Addendum Cosigned By: DD/ TD/TT: 04/03/25 EXAMINATION(S): 1. MM DIAGNOSTIC DIGITAL BREAST TOMOSYNTHESIS, BILATERAL 2. Targeted ultrasound of the left breast CLINICAL INFORMATION: Left breast pain. Initially, patient described diffuse left breast pain, therefore no skin marker was placed for the mammogram study. However, later, the patient described left focal pain around the nipple. COMPARISON: February 23, 2023 and December 09, 2013. TECHNIQUE: Digital breast tomosynthesis is performed in along with computer-aided detection (CAD). Synthesized 2D images are generated from the tomosynthesis. FINDINGS: BREAST COMPOSITION: There are scattered areas of fibroglandular density. RIGHT BREAST: No significant masses, suspicious calcifications or other abnormalities are seen. LEFT BREAST: No significant masses, suspicious calcifications or other abnormalities are seen. Targeted ultrasound of the left breast was performed at the location of the focal pain as indicated by the patient. The survey throughout the retroareolar region did not reveal suspicious sonographic findings. MM/MM tomosynthesis diagnostic BI IMPRESSION: RIGHT BREAST: Negative, no mammographic evidence of malignancy. Normal interval follow-up is recommended in 12 months. LEFT BREAST: Negative, no evidence of malignancy. In particular, no abnormality to accounts for patient's history of focal pain. Clinical follow-up is recommended. Otherwise, normal interval follow-up mammogram is recommended in 12 months. ASSESSMENT: Category 1: Negative RECOMMENDATION: 1. Patient should be managed based on the clinical impression. 2. Otherwise, routine annual screening mammography. Results were provided to the patient at time of visit by the technologist. This patient's information was entered into a reminder system with a target due date for their next mammogram. Electronically signed by: April Al MD 04/03/2025 09:54 AM EDT Dictated By: April Al MD Signed By: <Electronically signed by April Al MD in OV> 04/03/2554 DD/ 9 TD/TT: 04/03/25924 Carton Waxing Machine Operator: Walter Aiken MD IMG BI PROCEDURES Edited Re sult - Final * Cologuard?? colon cancer screening (03/28/2024 7:56 PM EDT) Cologuard Result Negative Negative 04/02/20 1:17 PM EDT [facility] (CLIA #:[id number]) Comment: NEGATIVE TEST RESULT. A negative Cologuard [...] Grace. et al, N Engl J Med 2014;370(14):5987-0245) The normal value (reference range) for this assay is negative. COLOGUARD RE-SCREENING RECOMMENDATION: Periodic colorectal cancer screening is an important part of preventive healthcare for asymptomatic individuals at average risk for colorectal cancer. Following a negative Cologuard result, the [employer] Society and U.S. Multi-Society Task Force screening guidelines recommend a Cologuard re-screening interval of 3 years. References: [employer] Guideline for Colorectal Cancer Screening: https://www.cancer.org/cancer/xopsd-nqsgju-zmjzox/pwhufhpem-iqnkctntu-ebmhpcr/ac s-rec ommendations.html.; Rayshawn ROCHA, Cruzito ALVAREZ, Elyssa MCMULLEN, Colorectal Cancer Screening: Recommendations for Physicians and Patients from the U.S. Multi-Society Task Force on Colorectal Cancer Screening , Am J Gastroenterology 2017; 112:6736-9119. TEST DESCRIPTION: Composite algorithmic analysis of stool [...] Gomez et al, N Engl J Med 2014;370(14):2613-6950.) Cologuard may produce a false negative or false positive result (no colorectal cancer or precancerous polyp present at colonoscopy follow up). A negative Cologuard test result does not guarantee the absence of CRC or advanced adenoma (pre-cancer). The current Cologuard screening interval is every 3 years. ([employer] [employer] and U.S. Multi-Society Task Force). Cologuard performance data in a 10,000 patient pivotal study using colonoscopy as the reference method can be accessed at the following location: www.[employer]/results. Additional description of the Cologuard test process, warnings and precautions can be found at www.cologuard.com. Stool specimen (specimen) 03/28/2024 7:56 PM EDT 03/30/2024 9:45 AM EDT Walter Aiken MD LAB MOLECULAR DIAGNOSTICS O RDERABLES Final Result [facility] (CLIA #:[id number]) [address] [place] [address], * HPV mRNA E6/E7 (01/18/2019 3:23 PM EDT) HPV mRNA E6/E7 Not Detected NOT DETECTED [facility] Comment: This test was performed using the APTIMA(R) HPV Assay ([employer] This assay detects E6/E7 viral messenger RNA (mRNA) from 14 high-risk HPV types (16,18,31,33,35,39,45,51, 52,56,58,59,66,68). For additional information please refer to: http://education.[employer].Tecnoblu/faq/BWS315b8 (This link is being provided for informational/ educational purposes only.) The analytical performance characteristics of this assay have been determined by [employer] [place], [place]. The modifications have not been cleared or approved by the FDA. This assay has been validated pursuant to the CLIA regulations and is used for clinical purposes. Test Performed by [facility], [facility], [address] [place] [address] hPillip Gutierrez M.D., Ph.D., Director of Laboratories , CLIA [id number] Please note: Effective 03/17/2016, HPV testing will be performed using [employer]'s APTIMA test which targets mRNA. Detecting mRNA instead of DNA, as in older methods, offers significant improvements in specificity. 01/18/2019 3:23 PM EDT Krystal Shields CNM HISTORICAL/NON ORDERABLE LABS Final Result [facility] [address] * Pap Smear (01/18/2019) Pap smear performed us Historical Provider MD HEALTH MAINTENANCE Final Result from Last 3 Months or Most Recently Relevant to Health Maintenance Additional Health Concerns Active Problems Noted Date [...] 06/12/2025 Patient has chronic kidney disease 06/12/[address] [place], [place] [id number] [place] [id number] [facility] [place]ICA[place] STAND ADULT * Guarantor: Blank Rosas Account Type Relation to Patient Date of Phone Billing Address Personal/Family Self [address] [place] Care Teams Film Spooler Relationship Specialty Start Date End Date Walter Aiken MD [address] [place] [address] [place] [address] PCP - General Internal Medicine 04/05/14 [employer] 08/20/22
--- OUTSIDE RECORDS SUMMARY | 2025-06-12 23:36 | XMS_ITS | Encounter Summary ---
Author Organization [employer] Address [address] [facility] 7 [place] [address] Care Team Providers Care Oil Burner Mechanic Name Role Phone Walter Aiken MD Primary Care Provider [phone] Reason for Visit * Reason Onset Date Comments PT1 01/15/2023 Encounter Details Date Type Department Care Team ([facility] st Contact Info) Description 01/15/2023 Telephone [facility] [address] [place] [address] Walter Aiken MD [address] [place] [address] PT1 Social History Tobacco Use Types Packs/Day [...] the mail. * Telephone Encounter - Bernadette Montrell - 01/15/2023 3:33 PM EDT PT1- Home address verified Date: n/a Time: n/a Visits: Address: [address] [place] [address] Rd, [place] [address] Facility: [facility] Dental Wheel Chair: n/a Housekeeping Supervisor Hotel Needed: Yes documented in this encounter Plan of Treatment Not on file documented as of this encounter Visit Diagnoses Not on filedocumented in this encounter Care Teams Oil Burner Mechanic Relationship Specialty Start Date End Date Walter Aiken MD [address] [place] [id number] PCP - General Internal Medicine 04/05/14 [employer] 08/20/22 documented as of this encounter
== END 2025-06-12 14:28 | disposition home or self-care (01) ==
LOC: HO.CHCLDS 14:27
PROVIDERS: Internal Medicine Nephrology; PCP Internal Medicine; Visit Provider Internal Medicine
DX: I10 Essential (primary) hypertension (principal); K62.5 Hemorrhage of anus and rectum; F51.01 Primary insomnia; R80.9 Proteinuria, unspecified; M25.59 Pain in other specified joint
CPT/HCPCS: 36415; 80048; 81001; 81003; 82570; 82607; 82746; 84156; 85025; 85652